=== PATIENT | female | born 1955 | race Caucasian/White ===

== ENCOUNTER 2016-10-09 15:45 | Inpatient (IN) | payer OTHER ==
[~2016-10-09] VITALS: Ht 167.6 cm; Wt 121.6 kg
[~2016-10-09 15:45] MED LIST: ALPRAZOLAM0.25 M1 PO; ALPRAZOLAM0.5 MG PO; AMOXICILLIN500 M3 PO; CELEXA20 MG PO; FUROSEMIDE40 MG PO; GOOD SENSE ASP325 MG PO; LEVEMIR FLEX100 U/M1 SC; LYRICA300 MG PO; NEURONTIN100 MG; NICOTINE TOP; NOVOLOG100 U/ML SC; OXYCONTIN80 MG PO; SPIRIVA 18 MCG18 MCG INH; STOOL SOFTENER100 MG PO; TRADJENTA5 MG PO
--- NOTE | 2016-10-09 16:05 | NUR ---
PT NOT IN WAITING ROOM WHEN CALLED X 2
--- NOTE | 2016-10-09 16:34 | NUR ---
PA STUDENT TO BEDSIDE TO EVAL
--- NOTE | 2016-10-09 16:51 | ED SKIN/ALLERGY COMPLAINT ---
History of Present Illness General Chief Complaint: General Adult Stated Complaint: SENT BY ANTONIO FOR EVAL OF WOUND Source: patient, PCP Exam Limitations: no limitations Vital Signs & Intake/Output Vital Signs & Intake/Output Vital Signs Date Time Temp Pulse Resp B/P B/P Pulse O2 O2 Flow FiO2 Mean Ox Delivery Rate 10/09 1906 96 Nasal 2.0L Cannula 10/09 1905 79 18 112/55 89 Room Air 10/09 1656 99 Room Air 10/09 1611 99.3 99 16 161/73 90 Room Air Allergies Coded Allergies: NO KNOWN ALLERGIES (09/21/15) Reconcile Medications Citalopram Hydrobromide (Citalopram HBr) 20 MG TABLET 1 TAB PO DAILY MENTAL HEALTH (Reported) Furosemide 40 MG TABLET 60 MG PO DAILY DIURETIC (Reported) Insulin Aspart, Recombinant (Novolog Flexpen) 100 UNIT/ML INSULN.PEN DM ( Reported) Insulin Detemir (Levemir Flextouch) 100 UNIT/ML (3 ML) INSULN.PEN 64 UNITS SC BID DM (Reported) Linagliptin (Tradjenta) 5 MG TABLET 1 TAB PO DAILY DM (Reported) Oxycodone HCl (Oxycontin) 80 MG TAB.ER.12H 1 TAB PO TID PRN PAIN (Reported) Pregabalin (Lyrica) 300 MG CAPSULE 1 CAP PO BID NERVE PAIN (Reported) Tiotropium [place] (Spiriva) 18 MCG CAP.W.DEV 1 CAP INH DAILY COPD (Reported) Triage Note: PT STATES SHE HAS A PROSTETIC LEFT LOWER EXT. AND STATES SHE HAS A WOUND ON THE STUMB AND SHE HAS A WOUND THAT WAS PACKED YESTERDAY AND TODAY SHE STARTED WITH A FEVER. Triage Nurses Notes Reviewed? yes HPI: Patient presents for evaluation at the request of her primary care physician of a wound on her left leg. 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 The wound began gradually about 1 month ago. The wound has been constant since onset and has been getting worse/bigger. She completed a course of antibiotics about one half weeks ago. pt states she felt a little feverish today. Patient' s wound becomes painful with weightbearing and use of her prosthetic. She denies cold symptoms, stuffy nose, sore throat, chest pain, shortness of breath, productive cough, vomiting or diarrhea. Past History Travel History Traveled to [place] past 21 day No Medical History Any Pertinent Medical History? see below for history Neurological: NONE EENT: NONE Cardiovascular: NONE Respiratory: asthma, COPD Gastrointestinal: NONE Hepatic: NONE Renal: chronic kidney disease Musculoskeletal: septic arthritis (l ankle), LLE AMPUTATED AMPUTATIONS RT GRT TOE, 3RD TOE Psychiatric: NONE Endocrine: diabetes Blood Disorders: DVT, PE Cancer(s): UTERINE CA Other Medical Hx: Group B strep sepsis History of MRSA: Yes History of VRE: No History of CDIFF: No Pneumonia Vaccine: 08/20/08 Influenza Vaccine: 04/22/15 Surgical History Surgical History: cholecystectomy, hysterectomy, left BKA rt great, 3rd toes amput status post IVC filter status post varicose vein surgery Psychosocial History Who do you live with Daughter Services at Home None What is your primary language Albanian Tobacco Use: Current Daily Use Daily Tobacco Use Amount/Type: => 5 Cigarettes daily ETOH Use: denies use Illicit Drug Use: denies illicit drug use Family History Family History, If Any: MOTHER FH: breast cancer Hx Contributory? No Review of Systems Review of Systems Constitutional: Reports: no symptoms. EENTM: Reports: no symptoms. Respiratory: Reports: no symptoms. Cardiovascular: Reports: no symptoms. GI: Reports: no symptoms. Genitourinary: Reports: no symptoms. Musculoskeletal: Reports: no symptoms. Skin: Reports: see HPI. Neurological/Psychological: Reports: no symptoms. Hematologic/Endocrine: Reports: no symptoms. Immunologic/Allergic: Reports: no symptoms. All Other Systems: Reviewed and Negative Physical Exam Physical Exam General Appearance: see below Comments: Gen.: Well-nourished, well-developed, no acute respiratory distress. Head: Normocephalic, atraumatic. Eyes: Normal inspection bilaterally Ears: Normal inspection bilaterally Nose: Normal inspection Throat/mouth : Moist mucosa Neck: Supple, full range of motion, no goiter Heart: Regular rate and rhythm, no murmurs rubs or gallops Lungs: Clear to auscultation bilaterally with normal air entry Chest: Nontender Back: Normal range of motion Abdomen: Soft, nontender, nondistended, normal bowel sounds Extremities: Quarter-sized sized skin ulcer just distal to the kneecap. Neurologic: Cranial nerves grossly intact, speech is clear Skin: warm and dry Psychiatric: Calm, cooperative, no apparent delusions or hallucinations Progress Differential Diagnosis: cellulitis, deep tissue space infection, pneumonia, urinary infection, viral syndrome Plan of Care: Orders Procedure Date/time Status LACTIC ACID 10/09 2144 Active Misc Message 10/09 1844 Active ED Holding Orders 10/09 1844 Active Admit to inpatient 10/09 1844 Active Vital Signs 10/09 1844 Active LACTIC ACID 10/09 1844 Active Code Status 10/09 1844 Active BLOOD CULTURE 10/09 1706 Active URINALYSIS 10/09 1706 Active COMPREHENSIVE METABOLIC PANEL 10/09 1706 Complete CBC WITHOUT DIFFERENTIAL 10/09 1706 Complete Current Medications Sig/Suleman Start time Last Medication Dose Stop Time Status Admin Vancomycin HCl 1,000 MG ONCE ONE 10/09 1929 UNir Sodium Chloride 250 ML 10/09 2028 (Normal Saline 0.9%) Azithromycin 500 MG ONCE ONE 10/09 1844 AC 10/09 (Zithromax) 10/09 Sodium Chloride 250 ML (Normal Saline 0.9%) Laboratory Tests 10/09/16 1800: Anion Gap 14, Estimated GFR 17 L, BUN/Creatinine Ratio 11.4, Glucose 185 H, Calcium 9.6, Total Bilirubin 0.5, AST 18, ALT 29, Alkaline Phosphatase 95, Total Protein 7.8, Albumin 3.7, Globulin 4.1, Albumin/Globulin Ratio 0.9 L, CBC w Diff NO MAN DIFF REQ, RBC 3.74 L, MCV 93.4, MCH 31.1 H, RDW 14.9 H, MPV 6.6 L, Gran % 90.3 H, Lymphocytes % 4.4 L, Monocytes % 3.3, Eosinophils % 1.2, Basophils % 0.8, Absolute Granulocytes 13.8 H, Absolute Lymphocytes 0.7 L, Absolute Monocytes 0.5, Absolute Eosinophils 0.2, Absolute Basophils 0.1, PUBS MCHC 33.3 Microbiology 10/09 1814 BLOOD: Blood Culture - RECD 10/09 1799 BLOOD: Blood Culture - RECD Diagnostic Imaging: Discussed w/RAD: Radiology Read, CT Scan. Radiology Impression: PATIENT: DENA VICENTE PRESENT AGE: 60 PATIENT ACCOUNT NO: [id number] : 53 LOCATION: [facility] ORDERING PHYSICIAN: ALLAN DE LUNA MD SERVICE DATE: 10/09/16-1706 EXAM TYPE: RAD - XRY-CHEST XRAY, PA AND LATERAL EXAMINATION: XR CHEST CLINICAL INFORMATION: Evaluate for pneumonia fever COMPARISON: 09/19/2015 TECHNIQUE: 2 views of the chest were obtained. FINDINGS: There is generalized opacity in left upper lung. This may represent a small area of developing infiltrate. There is also some minimal change the right lung base. Remainder lung sifuentes are clear. There is vascular prominence here but this may represent baseline for this patient. IMPRESSION: Based on the imaging submitted I must consider developing left upper lung infiltrate and developing right basilar infiltrate. Follow-up films recommended. Vascular prominence may be baseline in this patient. DICTATED BY: ALLAN THOMSON MD DATE/TIME DICTATED:10/09/161732 TREE EXPERT:FARZANA DATE/TIME TRANSCRIBED:10/09/161732 CONFIDENTIAL, DO NOT COPY WITHOUT APPROPRIATE AUTHORIZATION. <Electronically signed in Other Vendor System> SIGNED BY: ALLAN THOMSON MD 10/09/161737, PATIENT: DENA VICENTE PRESENT AGE: 60 PATIENT ACCOUNT NO: [id number] : 53 LOCATION: [facility] ORDERING PHYSICIAN: ALLAN DE LUNA MD SERVICE DATE: 10/09/161728 EXAM TYPE: CAT - CT LOWER EXT WO IV CONTRAST EXAMINATION: CT LOWER EXTREMITY WITHOUT CONTRAST, LEFT CLINICAL INFORMATION: Fever, stump wound. COMPARISON: None TECHNIQUE: Multidetector volumetric imaging of the left lower extremity was performed without IV contrast. Coronal and sagittal reformatted images were obtained at the technologist workstation. DLP: 1201 mGy-cm FINDINGS: Lack of IV contrast limits evaluation for a fluid collection. There is prominent edema at the anterior stump with gas extending through the skin into the area of most prominent edema. This is suggestive of confluent complex fluid. Abscess not excluded at this location. No acute fracture. No erosive osseous changes are seen. Minimal ossification seen at the amputation site adjacent to the distal tibia. Degenerative changes are present at the knee with chondrocalcinosis. Tricompartmental joint space narrowing with osteophyte formation. The bones are osteopenic. There is diffuse atrophy of the musculature of the imaged left lower extremity. Small joint effusion at the knee. IMPRESSION: Lack of IV contrast limits evaluation for a fluid collection. There is prominent edema with area of fluid in the anterior aspect of the stump. Gas extends from the skin into the soft tissues of this area. Although an abscess cannot be confirmed on this imaging, this is suspicious. No acute erosive changes of the osseous structures. Degenerative changes at the knee. DICTATED BY: YOSEHP WRIGHT MD DATE/TIME DICTATED:10/09/161799 TREE EXPERT:FARZANA DATE/TIME TRANSCRIBED:1799 CONFIDENTIAL, DO NOT COPY WITHOUT APPROPRIATE AUTHORIZATION. < Electronically signed in Other Vendor System> SIGNED BY: DARIANA RODAS, YOSEPH 10/09/16 0120 Comments: 10/09/2016 7:19:54 PM I have updated Dena on test results and plan. Discussed her case with Dr. Hays. She is being evaluated by house staff. She remains clinically stable and appears comfortable at this time. Departure Departure Disposition: STILL A PATIENT Condition: Stable Clinical Impression Primary Impression: Pneumonia Qualifiers: Pneumonia type: due to unspecified organism Laterality: bilateral Lung location: unspecified part of lung Qualified Code: J18.9 - Pneumonia, unspecified organism Secondary Impressions: Cellulitis Qualifiers: Site of cellulitis: extremity Site of cellulitis of extremity: lower extremity Laterality: left Qualified Code: L03.116 - Cellulitis of left lower limb Referrals: GARRET HAYS MD (PCP/Family) Departure Forms: Customer Survey General Discharge Information Admission Note Spoke With: GARRET HAYS MD Documentation of Exam: Documentation of any treatments & extenuating circumstances including Concerns Regarding Discharge (functional status, medication knowledge or non-compliance, living conditions, etc.) that warrant an admission rather than observation: Patient has multilobar pneumonia and quite possibly a left lower extremity cellulitis. She has a history of diabetes and renal insufficiency, compromising her immune system. This places her at great risk of overwhelming infection, sepsis and . Given this I do not feel she is a good candidate for outpatient management and instead requires an aggressive treatment with IV antibiotics and close clinical monitoring. Her diabetes should be well controlled and renal functions should be followed. Blood cultures should also be followed and treated accordingly. Infectious disease consultation and or pulmonary consultation should be considered. I feel this patient will require a multiple day hospitalization. Critical Care Note Critical Care Note Critical Care Time: 30-74 min
--- NOTE | 2016-10-09 16:55 | NUR ---
DR DE LUNA TO BEDSIDE WELL TO EVAL WOUND
--- NOTE | 2016-10-09 17:38 | RADIOLOGY REPORT ---
EXAMINATION: XR CHEST CLINICAL INFORMATION: Evaluate for pneumonia fever COMPARISON: 09/19/2015 TECHNIQUE: 2 views of the chest were obtained. FINDINGS: There is generalized opacity in left upper lung. This may represent a small area of developing infiltrate. There is also some minimal change the right lung base. Remainder lung sifuentes are clear. There is vascular prominence here but this may represent baseline for this patient. IMPRESSION: Based on the imaging submitted I must consider developing left upper lung infiltrate and developing right basilar infiltrate. Follow-up films recommended. Vascular prominence may be baseline in this patient.
[2016-10-09] MEDS ORDERED: CITALOPRAM HBR20 MG PO (18:07)
[2016-10-09] MEDS ORDERED: LEVEMIR FL100 UNIT/1 SC (18:08)
[2016-10-09] MEDS ORDERED: NOVOLOG FL100 UNIT/1 SC (18:08)
--- NOTE | 2016-10-09 18:08 | CT SCAN REPORT ---
EXAMINATION: CT LOWER EXTREMITY WITHOUT CONTRAST, LEFT CLINICAL INFORMATION: Fever, stump wound. COMPARISON: None TECHNIQUE: Multidetector volumetric imaging of the left lower extremity was performed without IV contrast. Coronal and sagittal reformatted images were obtained at the technologist workstation. DLP: 1201 mGy-cm FINDINGS: Lack of IV contrast limits evaluation for a fluid collection. There is prominent edema at the anterior stump with gas extending through the skin into the area of most prominent edema. This is suggestive of confluent complex fluid. Abscess not excluded at this location. No acute fracture. No erosive osseous changes are seen. Minimal ossification seen at the amputation site adjacent to the distal tibia. Degenerative changes are present at the knee with chondrocalcinosis. Tricompartmental joint space narrowing with osteophyte formation. The bones are osteopenic. There is diffuse atrophy of the musculature of the imaged left lower extremity. Small joint effusion at the knee. IMPRESSION: Lack of IV contrast limits evaluation for a fluid collection. There is prominent edema with area of fluid in the anterior aspect of the stump. Gas extends from the skin into the soft tissues of this area. Although an abscess cannot be confirmed on this imaging, this is suspicious. No acute erosive changes of the osseous structures. Degenerative changes at the knee.
[2016-10-09] MEDS ORDERED: LYRICA300 M1 PO (18:09)
[2016-10-09] MEDS ORDERED: SPIRIVA18 MCG INH (18:09)
[2016-10-09] MEDS ORDERED: FUROSEMIDE40 M1 PO (18:09)
[2016-10-09] MEDS ORDERED: TRADJENTA5 M1 PO (18:09)
[2016-10-09] MEDS ORDERED: OXYCONTIN80 M1 PO (18:10)
[2016-10-09 18:12] LABS: ABSOLUTE BASOPHIL COUNT 0.1 /CUMM (0.0-0.2); ABSOLUTE EOSINOPHIL COUNT 0.2 /CUMM (0.0-0.7); ABSOLUTE GRANULOCYTE CT 13.8 /CUMM (1.4-6.5); ABSOLUTE LYMPH COUNT 0.7 /CUMM (1.2-3.4); ABSOLUTE MONOCYTE COUNT 0.5 /CUMM (0.10-0.60); BASOPHIL % 0.8 % (0.0-2.0); EOSINOPHIL % 1.2 % (0-5); HEMATOCRIT 34.9 % (37-47); MEAN CORPUSCULAR HGB 31.1 PG (27.0-31.0); MEAN CORPUSCULAR HGB CONC 33.3 G/DL (33.0-37.0); MEAN CORPUSCULAR VOLUME 93.4 FL (81.0-99.0); MEAN PLATELET VOLUME 6.6 FL (7.4-10.4); PLATELET COUNT 311 /CUMM (130-400); RBC DISTRIBUTION WIDTH 14.9 % (11.5-14.5); RED BLOOD CELL CT 3.74 /CUMM (4.20-5.40); WHITE BLOOD CELL COUNT 15.3 /CUMM (4.8-10.8)
[2016-10-09 18:13] LABS: GRANULOCYTE % 90.3 % (42.2-75.2)
--- NOTE | 2016-10-09 18:22 | NUR ---
PT TO AND FROM CT SCAN, IV ESTABLISHED.
--- NOTE | 2016-10-09 19:05 | NUR ---
PT STATING SHE DOES NOT WANT TO CHANGE INTO GOWN, ABX STARTED PER EMAR, PT RESTING QUIETLY WITH SON AT BEDSIDE, REQUESTING SOMETHING TO EAT, WILL NOTIFY .
--- NOTE | 2016-10-09 19:16 | NUR ---
HOUSE STAFF AT BEDSIDE FOR EVALAUTION
--- NOTE | 2016-10-09 19:43 | NUR ---
PT CHANGED INTO GOWN FOR US
--- NOTE | 2016-10-09 19:45 | History & Physical ---
See Addendum General Information and HPI MD Statement: I have seen and personally examined MEKHI VICENTE and documented this H&P. The patient is a 60 year old F who presented with a patient stated chief complaint of [wound infection]. Source of Information: patient, family, old records Exam Limitations: no limitations History of Present Illness: This is a 60-year-old lady whose medical issues include diabetes, hypertension, hyperlipidemia, COPD, current everyday smoker, left lower extremity BKA status post osteomyelitis (per patient) presents to the emergency room today per request of the primary care physician for evaluation of wound of the left leg stump. Patient states that she has had this ulcer for the past 6 weeks now, subsequently there has been some drainage coming out of it. She had a visiting wound care nurse come home yesterday who also recommended that she come to the emergency room for evaluation. On admission today her only complaint are some tactile fevers and chills. Denies any dyspnea, orthopnea, productive cough. She was admitted here last year in August with blood cultures growing strep pneumo, in 2007 she has grown MRSA in bone/ wound cultures. While in the emergency room a left lower extremity CAT scan was obtained which showed gas extending from the skin into the soft tissues. A chest x-ray also was suggestive of left upper lung infiltrate and developing right basilar infiltrate , however she has no complaints of cough or dyspnea as noted above. Allergies/Medications Allergies: Coded Allergies: NO KNOWN ALLERGIES (09/21/15) Home Med list Citalopram Hydrobromide (Citalopram HBr) 20 MG TABLET 1 TAB PO DAILY MENTAL HEALTH (Reported) Furosemide 40 MG TABLET 60 MG PO DAILY DIURETIC (Reported) Insulin Aspart, Recombinant (Novolog Flexpen) 100 UNIT/ML INSULN.PEN DM ( Reported) Insulin Detemir (Levemir Flextouch) 100 UNIT/ML (3 ML) INSULN.PEN 64 UNITS SC BID DM (Reported) Linagliptin (Tradjenta) 5 MG TABLET 1 TAB PO DAILY DM (Reported) Oxycodone HCl (Oxycontin) 80 MG TAB.ER.12H 1 TAB PO TID PRN PAIN (Reported) Pregabalin (Lyrica) 300 MG CAPSULE 1 CAP PO BID NERVE PAIN (Reported) Tiotropium [place] (Spiriva) 18 MCG CAP.W.DEV 1 CAP INH DAILY COPD (Reported) Past History Travel History Traveled to [place] past 21 day No Medical History Neurological: NONE EENT: NONE Cardiovascular: NONE Respiratory: COPD Gastrointestinal: NONE Hepatic: NONE Renal: chronic kidney disease Musculoskeletal: LLE AMPUTATED AMPUTATIONS RT GRT TOE, 3RD TOE Psychiatric: NONE Endocrine: diabetes History of MRSA: Yes History of VRE: No History of CDIFF: No Pneumonia Vaccine: 08/20/08 Influenza Vaccine: 04/22/15 Surgical History Surgical History: cholecystectomy, hysterectomy, left BKA rt great, 3rd toes amput status post IVC filter status post varicose vein surgery Past Family/Social History Family History Relations & Conditions if any MOTHER FH: breast cancer Psychosocial History Who Do You Live With? child Services at Home: None ETOH Use: denies use Illicit Drug Use: denies illicit drug use Functional Ability ADLs Independent: dressing, eating, toileting, bathing. Ambulation: cane IADLs Needs Assist: shopping, housework. Review of Systems Review of Systems Constitutional: Reports: see HPI. Exam & Diagnostic Data Last 24 Hrs of Vital Signs/I&O Vital Signs Date Time Temp Pulse Resp B/P B/P Pulse O2 O2 Flow FiO2 Mean Ox Delivery Rate 10/09 1906 96 Nasal 2.0L Cannula 10/09 190 79 18 112/55 89 Room Air 10/09 1656 99 Room Air 10/09 1611 99.3 99 16 161/73 90 Room Air Physical Exam General Appearance Alert, Oriented X3, Cooperative, No Acute Distress Skin No Rashes HEENT Atraumatic, PERRLA, EOMI Cardiovascular Regular Rate, Normal S1, Normal S2 Lungs Normal Air Movement, b/l expiratory faint wheezing, no rales or ronchii Abdomen Normal Bowel Sounds, Soft, No Tenderness Neurological Normal Speech, Strength at 5/5 X4 Ext, Normal Tone, Sensation Intact, Cranial Nerves 3-12 NL Extremities RLE chronic swelling, dry skin, amputated 1st and 3rd digits; LLE BKA, ulcer 2 cm by 2 cm, with central drainage with surrounding errythema Diagnostic Data CXR Results PATIENT: MEKHI VICENTE PRESENT AGE: 60 PATIENT ACCOUNT NO: [id number] : 53 LOCATION: [facility] ORDERING PHYSICIAN: ALLAN DE LUNA MD SERVICE DATE: 10/09/16 EXAM TYPE: RAD - XRY-CHEST XRAY, PA AND LATERAL EXAMINATION: XR CHEST CLINICAL INFORMATION: Evaluate for pneumonia fever COMPARISON: 09/19/2015 TECHNIQUE: 2 views of the chest were obtained. FINDINGS: There is generalized opacity in left upper lung. This may represent a small area of developing infiltrate. There is also some minimal change the right lung base. Remainder lung sifuentes are clear. There is vascular prominence here but this may represent baseline for this patient. IMPRESSION: Based on the imaging submitted I must consider developing left upper lung infiltrate and developing right basilar infiltrate. Follow-up films recommended. Vascular prominence may be baseline in this patient. DICTATED BY: ALLAN THOMSON MD DATE/TIME DICTATED:10/09/161732 BRAIN WAVE TECHNICIAN:FARZANA DATE/TIME TRANSCRIBED:10/09/161732 CONFIDENTIAL, DO NOT COPY WITHOUT APPROPRIATE AUTHORIZATION. <Electronically signed in Other Vendor System> SIGNED BY: ALLAN THOMSON MD 10/09/161737 Other Results PATIENT: MEKHI VICENTE PRESENT AGE: 60 PATIENT ACCOUNT NO: [id number] : 53 LOCATION: [facility] ORDERING PHYSICIAN: ALLAN DE LUNA MD SERVICE DATE: 10/09/16 EXAM TYPE: CAT - CT LOWER EXT WO IV CONTRAST EXAMINATION: CT LOWER EXTREMITY WITHOUT CONTRAST, LEFT CLINICAL INFORMATION: Fever, stump wound. COMPARISON: None TECHNIQUE: Multidetector volumetric imaging of the left lower extremity was performed without IV contrast. Coronal and sagittal reformatted images were obtained at the technologist workstation. DLP: 1201 mGy-cm FINDINGS: Lack of IV contrast limits evaluation for a fluid collection. There is prominent edema at the anterior stump with gas extending through the skin into the area of most prominent edema. This is suggestive of confluent complex fluid. Abscess not excluded at this location. No acute fracture. No erosive osseous changes are seen. Minimal ossification seen at the amputation site adjacent to the distal tibia. Degenerative changes are present at the knee with chondrocalcinosis. Tricompartmental joint space narrowing with osteophyte formation. The bones are osteopenic. There is diffuse atrophy of the musculature of the imaged left lower extremity. Small joint effusion at the knee. IMPRESSION: Lack of IV contrast limits evaluation for a fluid collection. There is prominent edema with area of fluid in the anterior aspect of the stump. Gas extends from the skin into the soft tissues of this area. Although an abscess cannot be confirmed on this imaging, this is suspicious. No acute erosive changes of the osseous structures. Degenerative changes at the knee. DICTATED BY: YOSEPH WRIGHT MD DATE/TIME DICTATED:10/09/161799 BRAIN WAVE TECHNICIAN:FARZANA DATE/TIME TRANSCRIBED:10/09/161799 CONFIDENTIAL, DO NOT COPY WITHOUT APPROPRIATE AUTHORIZATION. <Electronically signed in Other Vendor System> SIGNED BY: YOSEPH WRIGHT MD 10/09 989 Assessment/Plan Assessment: ASSESSMENT- 1. Left lower extremity wound likely concerns for necrotizing fascitis; possibly underlying osteomyelitis 2. LLE cellulitis ? 3. CXR suggestive of PNA, likely CAP 4. COPD 5. Neuropathy 6. Depression 7. Charcots foot 8. IDDM 9. Hx of BKA 10. CKD stage 3 11. Nicotine dependance 12. Peripheral vascular disease PLAN- GEN med admission [place] culture- blood cultures x 2, sputum culture, strep and legionella antigen, urinalysis Vitals per protocol Start on vancomycin and clindamycin (cover MRSA and anaerobes) She already has received one doses of ceftriaxone and azithromycin in the emergency room for suspected pneumonia; given her lack of symptoms will hold off treatment for those for now STAT surgical consult has been placed Keep patient nothing by mouth for now Will obtain infectious disease and endocrine consult in the morning Accu-Cheks, insulin sliding scale and long-term insulin coverage Continue all other by mouth meds 14 g nicotine patch Pain pathway Doppler ultrasound is pending Check ESR, INR, B12, folic acid, vitamin D Subcutaneous heparin for DVT prophylaxis Full code UPDATE 8:15 PM- I got a call from the surgical PADavid, who stated that Dr. Moya did see the patient. He thinks that this is not likely suggestive of necrotizing fasciitis as this wound has been there for some time. They recommend broad-spectrum antibiotics at present. No plans for surgery. Will feed the patient. Per surgical PA, Dr. Moya did send out a wound culture. As Ranked By This Provider Problem List: 1. Cellulitis Qualifiers Site of cellulitis: extremity Site of cellulitis of extremity: lower extremity Laterality: left Qualified Code: L03.116 - Cellulitis of left lower limb 2. Pneumonia Qualifiers Pneumonia type: due to unspecified organism Laterality: bilateral Lung location : unspecified part of lung Qualified Code: J18.9 - Pneumonia, unspecified organism Core Measures/Miscellaneous Acute Coronary Syndrome ACS Diagnosis: No Cerebrovascular Accident CVA/TIA Diagnosis: No Congestive Heart Failure CHF Diagnosis: No Venous Thromboembolism VTE Risk Factors: Age > 40 No Mech VTE prophylaxis d/t: No contraindications No VTE Pharm Prophylaxis d/t: No contraindications VTE Diagnosis: No VTE Type: NONE VTE Confirmed by (Test): NONE Severe Sepsis Severe Sepsis Present: No Septic Shock Septic Shock Present: No Miscellaneous Documentation Attending Case Discussed With: DR. ALVAREZ Primary Care Physician: GARRET ALVAREZ MD Patient sees these Specialists DR. RAMON Level of Patient Care: General Medicine Resident Review Statement Resident Statement: examined this patient, discussed with internet marketing analyst
--- NOTE | 2016-10-09 19:46 | Admission Certification ---
Admission Certification Certification Statement - As attending physician, I certify that at the time of - admission, based on clinical presentation, severity of - symptoms, need for further diagnostic testing and - therapeutic interventions, and risk of adverse outcomes - without in-hospital treatment, in my clinical assessment, - this patient requires an acute hospital stay for a minimum - of two nights or longer. I have also considered psychsocial - factors such as support system, advanced age, financial - issues, cognitive issues, and failed out-patient treatments, - past re-admission history, safety of patient, and lack of - compliance as applicable. Specific rationale supporting this admission is: Fever infected stump leukocytosis possible pneumonia in a diabetic patient.
--- NOTE | 2016-10-09 19:59 | PN- Att Addend ---
Attending Addendum Attending Brief Note 60 year old female diabetic PVD S/p leg amputation has had a wound on the stump red some pus today fever advised ti come to ER where she had x rays and blood work and cultures white count elevated,WBC 85445 90.3% gran. CXR: developing BALA infiltrate and RT. basilar infiltrate. CT of left lower extremity showed prominent edema with area of fluid in the anterior aspect of the stump.gas extends from the skin into the soft tisuues of this area,abscess is suspisious. No acute erosive changes of the osseous structures. Laboratory Tests 10/09 1800 Chemistry Sodium (137 - 145 mmol/L) 139 Potassium (3.5 - 5.1 mmol/L) 4.0 Chloride (98 - 107 mmol/L) 100 Carbon Dioxide (22 - 30 mmol/L) 25 Anion Gap (5 - 16) 14 BUN (7 - 17 mg/dL) 32 H Creatinine (0.5 - 1.0 mg/dL) 2.8 H Estimated GFR (>60 ml/min) 17 L BUN/Creatinine Ratio (7 - 25 %) 11.4 Glucose (65 - 99 mg/dL) 185 H Calcium (8.4 - 10.2 mg/dL) 9.6 Total Bilirubin (0.2 - 1.3 mg/dL) 0.5 AST (14 - 36 U/L) 18 ALT (9 - 52 U/L) 29 Alkaline Phosphatase (<127 U/L) 95 Total Protein (6.3 - 8.2 g/dL) 7.8 Albumin (3.5 - 5.0 g/dL) 3.7 Globulin (1.9 - 4.2 gm/dL) 4.1 Albumin/Globulin Ratio (1.1 - 2.2 %) 0.9 L Hematology CBC w Diff NO MAN DIFF REQ WBC (4.8 - 10.8 /CUMM) 15.3 H RBC (4.20 - 5.40 /CUMM) 3.74 L Hgb (12.0 - 16.0 G/DL) 11.6 L Hct (37 - 47 %) 34.9 L MCV (81.0 - 99.0 FL) 93.4 MCH (27.0 - 31.0 PG) 31.1 H RDW (11.5 - 14.5 %) 14.9 H Plt Count (130 - 400 /CUMM) 311 MPV (7.4 - 10.4 FL) 6.6 L Gran % (42.2 - 75.2 %) 90.3 H Lymphocytes % (20.5 - 51.1 %) 4.4 L Monocytes % (1.7 - 9.3 %) 3.3 Eosinophils % (0 - 5 %) 1.2 Basophils % (0.0 - 2.0 %) 0.8 Absolute Granulocytes (1.4 - 6.5 /CUMM) 13.8 H Absolute Lymphocytes (1.2 - 3.4 /CUMM) 0.7 L Absolute Monocytes (0.10 - 0.60 /CUMM) 0.5 Absolute Eosinophils (0.0 - 0.7 /CUMM) 0.2 Absolute Basophils (0.0 - 0.2 /CUMM) 0.1 PUBS MCHC (33.0 - 37.0 G/DL) 33.3 Case discussed with resident all cultures obtained, ID and endocrine imputs, IV antibiotics.
--- NOTE | 2016-10-09 20:11 | NUR ---
CULTURE SENT TO LAB
--- NOTE | 2016-10-09 20:12 | NUR ---
PT TO US VIA STRETCHER
--- NOTE | 2016-10-09 20:56 | NUR ---
NICOTIN PATCH PLACED ON PT VIV PER PT REQUEST AND DOSE IS PER EMAR
--- NOTE | 2016-10-09 21:32 | ULTRASOUND REPORT ---
EXAMINATION: US TRIPLEX LOWER EXTREMITY, BILATERAL CLINICAL INFORMATION: Lower extremity pain. Infection. Ulceration on the left. Swelling. Leg tenderness. Patient has a below the knee amputation on the left. COMPARISON: Triplex scans (of the right lower extremity) done in the past, all negative for DVT. May 2010, September 2010, February 2011, and August 2015. TECHNIQUE: Color-flow triplex imaging with spectral analysis and compression Doppler were performed on the bilateral lower extremities. The patient was unable to completely assume the supine position. FINDINGS: Respiratory variation, normal compression and augmented flow are noted throughout the right lower extremity. The visualized common femoral vein, superficial femoral vein, profunda femoral vein, popliteal vein and midcalf peroneal and posterior tibial venous segments show no evidence of deep venous thrombosis. Respiratory variation, normal compression, and augmented flow are noted in the left common femoral vein, the proximal superficial femoral vein, profunda femoral vein, and to lesser extent the popliteal vein. However, flow is very difficult to detect in the mid and distal portions of the left superficial femoral vein. Prominent lymph nodes are seen in the left groin. There is no Magallanes's cyst. IMPRESSION: 1. No evidence of DVT in the right lower extremity. 2. Poor compression and flow in the left mid and distal superficial femoral vein. The chronicity of this finding cannot be determined. This critical result was discussed with Dr. Lin at 9:28 PM on October 09 and it was ascertained that the content and urgency of the report was understood at the time of direct communication.
--- NOTE | 2016-10-09 21:49 | NUR ---
PT MEDICATED PER EMAR WITH CLEOCIN
--- NOTE | 2016-10-09 22:13 | NUR ---
PT'S RM ASSIGNMENT 225 BED 1
--- NOTE | 2016-10-09 22:25 | NUR ---
REPORT GIVEN TO STEFANO SMITH
[2016-10-09 23:37] VITALS: BP 170/84
--- NOTE | 2016-10-10 00:39 | NUR ---
PATIENT ARRIVED ON UNIT AT 2245 VIA STRETCHER. PATIENT AMBULATED TO BR WITH CANE AND PROSTHETIC WITHOUT ANY DIFFICULTY. PT A+Ox3 AND ON RA. 02 SAT 90-92% ON RA. PT DOES NOT WANT 02 AT THIS TIME. LUNGS DIMINISHED. VSS. ADMISSION ASSESSMENT COMPLETE. WOUND TO L KNEE ASSESSED AND DOCUMENTED; DRESSING CHANGED WELL. SCHEDULED MEDICATIONS GIVEN AT THIS TIME. NO FURTHER COMPLAINTS. WILL CONTINUE TO CLOSELY MONITOR.
[2016-10-10 06:29] VITALS: BP 140/70
--- NOTE | 2016-10-10 07:12 | PN- Housestaff ---
Subjective Follow-up For: Cellulitis Questionable osteomyelitis Subjective: Seen and examined patient. Complains that the ulcer on her left leg stump been having some purulent discharge, denies fevers, shortness of breath. Review of Systems Constitutional: Denies: chills, diaphoresis, fever, malaise, weakness, unexplained weight loss. Cardiovascular: Denies: chest pain, edema, orthopena, palpitations, peripheral edema, syncope. Respiratory: Denies: cough, hemoptysis, orthopnea, short of breath, sputum production, stridor, wheezing. Gastrointestinal: Denies: abdominal pain, bloating, constipation, diarrhea, distention, bowel incontinence, melena, nausea, bloody stool, changes in stool, vomiting, steatorrhea. Objective Last 24 Hrs of Vital Signs/I&O Vital Signs Date Time Temp Pulse Resp B/P B/P Pulse O2 O2 Flow FiO2 Mean Ox Delivery Rate 10/10 1333 98.4 68 20 144/86 93 10/10 0629 98.9 79 18 140/70 93 Room Air 10/10 0025 90 Room Air 10/09 2337 98.4 90 18 170/84 90 Room Air 10/09 2220 99.0 88 16 148/79 92 10/09 1907 96 Nasal 2.0L Cannula 10/09 1906 79 18 112/55 89 Room Air 10/09 1656 99 Room Air 10/09 1611 99.3 99 16 161/73 90 Room Air Intake & Output 10/10 1600 10/10 0800 10/10 0000 Intake Total 660 0 Output Total Balance 660 0 Intake, Oral 660 0 Patient 268 lb 268 lb Weight Weight Reported by Patient Reported by Patient Measurement Method Physical Exam General Appearance: Alert, Oriented X3, Cooperative, No Acute Distress Cardiovascular: Regular Rate, Normal S1, Normal S2 Lungs: Clear to Auscultation, Normal Air Movement Abdomen: Soft, distended, morbidly obese Extremities: left AKA, 7 x 7 cm also present on stump, clean margins with some purulent discharge noted Current Medications: Current Medications Sig/Suleman Start time Last Medication Dose Route Stop Time Status Admin Acetaminophen 650 MG Q6P PRN 10/09 2029 AC PO Acetaminophen/ 1 TAB Q6P PRN 10/09 2029 AC Hydrocodone Bitart PO Azithromycin 500 MG ONCE ONE 10/09 1844 DC 10/09 Sodium Chloride 250 ML IV 04/20 1944 1905 Ceftriaxone Sodium 0 .STK-MED ONE 10/09 1859 DC .ROUTE Ceftriaxone Sodium 1,000 MG ONCE ONE 10/09 1845 DC 10/09 IV 10/09 1846 1905 Citalopram 20 MG DAILY 10/10 1000 AC 10/10 Hydrobromide PO 1005 Clindamycin 600 MG Q8 10/10 0600 DC 10/10 Dextrose/Water 50 ML IV 1314 Clindamycin 600 MG ONCE ONE 10/09 1930 DC 10/09 Dextrose/Water 50 ML IV 10/09 1959 2149 Dextrose/Sodium 1,000 ML Q8H 10/10 1045 CAN Chloride IV Docusate Sodium 100 MG BID 10/10 1341 AC 10/10 PO 1449 Ergocalciferol 50,000 IU Q168 10/16 1000 AC PO Furosemide 60 MG DAILY 10/10 1000 DC 10/10 PO 1005 Guaifenesin/ 10 ML ONCE ONE 10/10 1600 AC Dextromethorphan PO 10/10 1601 Heparin Sodium 5,000 UNIT Q8 10/09 2200 AC 10/10 (Porcine) SC 1314 Hydromorphone HCl 0.5 MG Q6-PRN PRN 10/09 2030 AC IV Influenza Virus 0.5 ML 1000 10/10 1000 DC 10/10 Vaccine IM 10/10 1001 1006 Insulin Aspart 0 TIDAC/HS 10/10 1200 AC 10/10 SC 1218 Insulin Aspart 0 TIDAC 10/10 0800 DC 10/10 SC 0823 Insulin Detemir 45 UNITS BID 10/10 2200 AC SC Insulin Detemir 60 UNITS BID 10/09 2200 DC 10/10 SC 1005 Nicotine 0 .STK-MED ONE 10/09 205 DC TOP Nicotine 14 MG DAILY 10/09 2028 AC 10/10 TOP 1006 Oxycodone HCl 80 MG Q8 10/09 2200 AC 10/10 PO 1314 Patient Medication 1 ED .STK-MED ONE 10/10 1354 DC Teaching ED 10/10 1355 Pregabalin 300 MG BID 10/09 2200 AC 10/10 PO 1005 Sodium Chloride 1,000 ML Q10H 10/10 1330 DC IV 10/10 2329 Sodium Chloride 1,000 ML Q10H 10/10 1045 AC 10/10 IV 1210 Tiotropium Alpha 1 PUF DAILY 10/10 1000 AC 10/10 INH 1003 Vancomycin HCl 1,500 MG 10/10 AC Sodium Chloride 500 ML IV Vancomycin HCl 0 .STK-MED ONE 10/09 2050 DC .ROUTE Vancomycin HCl 1,000 MG ONCE ONE 10/09 1929 DC 10/09 Sodium Chloride 250 ML IV 10/09 Last 24 Hrs of Lab/Drew Results Last 24 Hrs of Labs/Mics: Laboratory Tests 10/10/16 0740: Urinalysis LIGHT H, Urine Color YEL, Urine Clarity HAZY H, Urine pH 6.0, Ur Specific [place] 1.020, Urine Protein >=300 H, Urine Ketones NEG, Urine Nitrite NEG, Urine Bilirubin NEG, Urine Urobilinogen 0.2, Ur Leukocyte Esterase NEG, Ur Microscopic SEDIMENT EXAMINED, Urine RBC 1-3, Urine WBC 1-3 H, Ur Epithelial Cells FEW, Urine Bacteria MOD H, Granular Casts FEW H, Urine Hemoglobin SMALL H, Urine Glucose 250 H 10/10/16 0622: Anion Gap 11, Estimated GFR 13 L, BUN/Creatinine Ratio 10.0, PT 12.8 H, INR 1.22 H, CBC w Diff NO MAN DIFF REQ, RBC 3.24 L, MCV 94.6, MCH 31.9 H, RDW 14.9 H, MPV 7.1 L, Gran % 83.8 H, Lymphocytes % 9.0 L, Monocytes % 5.6, Eosinophils % 1.1, Basophils % 0.5, Absolute Granulocytes 10.9 H, Absolute Lymphocytes 1.2, Absolute Monocytes 0.7 H, Absolute Eosinophils 0.1, Absolute Basophils 0.1, PUBS MCHC 33.7, Random Vancomycin 13.9 10/10/16 0045: Lactic Acid 1.8 10/09/16 2006: PT Cancelled, INR Cancelled 10/09/16 1845: Lactic Acid Cancelled 10/09/16 1800: Anion Gap 14, Estimated GFR 17 L, BUN/Creatinine Ratio 11.4, Glucose 185 H, Hemoglobin A1c 7.4 H, Calcium 9.6, Total Bilirubin 0.5, AST 18, ALT 29, Alkaline Phosphatase 95, Total Protein 7.8, Albumin 3.7, Globulin 4.1, Albumin/ Globulin Ratio 0.9 L, Vitamin B12 267, 25-OH Vitamin D Total 5.8 L, Folate 9.4 , TSH 1.810, Free T4 1.05, CBC w Diff NO MAN DIFF REQ, RBC 3.74 L, MCV 93.4, MCH 31.1 H, RDW 14.9 H, MPV 6.6 L, Gran % 90.3 H, Lymphocytes % 4.4 L, Monocytes % 3.3, Eosinophils % 1.2, Basophils % 0.8, Absolute Granulocytes 13.8 H, Absolute Lymphocytes 0.7 L, Absolute Monocytes 0.5, Absolute Eosinophils 0.2 , Absolute Basophils 0.1, PUBS MCHC 33.3, ESR Westergren 97 H Microbiology 10/10 1444 BODY FLUID: Body Fluid Culture - COLB 10/10 1444 BODY FLUID: Gram Stain - COLB 10/10 0900 LOWER RESP: Respiratory Culture - CAN Cancelled: NUMBER OF SQUAMOUS CELLS INDICATES POOR QUALITY SPECIMEN 10/10 0900 LOWER RESP: Gram Stain - CAN Cancelled: NUMBER OF SQUAMOUS CELLS INDICATES POOR QUALITY SPECIMEN 10/10 0740 URINE ROUT: Legionella Antigen - COMP 10/11 739 URINE ROUT: Streptococcus pneumoniae Antigen (M - COMP 10/09 2009 EXTREMITIE: Culture & Sensitivity - RES STAPH AUREUS 10/09 2009 EXTREMITIE: Gram Stain - RES 10/09 1815 BLOOD: Blood Culture - RES 10/09 1800 BLOOD: Blood Culture - RES Assessment/Plan Assessment: 60-year-old woman with a history of diabetes, left leg DVT status post IVC filter, chronic kidney disease, neuropathy and peripheral vascular disease, status post left BKA and amputations of the right first and third toes, current admission for fevers chills and purulent discharge from the ulcer on her left knee stump. Found to have elevated white count and ESR, CT left leg, edema with area of fluid in the anterior aspect of the stump, suspicious for an abscess, with gas extending from the skin into the soft tissues, with no evidence of osteomyelitis. Bilateral lower extremity Dopplers were negative for right leg DVT, with poor compression and flow in the left mid and distal superficial femoral veins. Assessment and plan Cellulitis/questionable osteomyelitis: Patient to go down for ultrasound-guided aspiration if possible as there is suspicion of collection of fluid. Will follow-up fluid for culture. superficial culture culture positive for staph aureus Will follow-up MRI ID consulted appreciate recommendations Random Vanco level to be followed up this evening if less than 15 Vancomycin 1.5 g IV 1 to be given will repeat another random Vanco level and with a.m. labs tommorrow and if less than 15 will give another one time dose of 1.5g IV. will discontinue clindamycin as it has shown to have increased resistance to MRSA. pain control with her home dose of oxycontin and dilaudid for breakthrough pain. Diabetes: monitor fingersticks, Endo on board, apprec recs On levemir 45 units, sliding scale per endo recomendation ameya on CKD secondary to ATN (vancomycin induced) vs lasix will hold lasix for now. will continue to monitor Mood disorder continue celexa, diabetic diet dvt prophylaxis with sc heparin full code Problem List: 1. Diabetes mellitus type 2 2. Cellulitis of right lower leg 3. AMEYA (acute kidney injury) Pain Ratin Pain Location: left knee stump Pain Goal: Pain 4 or less Pain Plan: current regimen Tomorrow's Labs & Rationales: cbc/bep/vanco level
[2016-10-10 08:07] LABS: ABSOLUTE BASOPHIL COUNT 0.1 /CUMM (0.0-0.2); ABSOLUTE EOSINOPHIL COUNT 0.1 /CUMM (0.0-0.7); ABSOLUTE GRANULOCYTE CT 10.9 /CUMM (1.4-6.5); ABSOLUTE LYMPH COUNT 1.2 /CUMM (1.2-3.4); ABSOLUTE MONOCYTE COUNT 0.7 /CUMM (0.10-0.60); BASOPHIL % 0.5 % (0.0-2.0); EOSINOPHIL % 1.1 % (0-5); GRANULOCYTE % 83.8 % (42.2-75.2); HEMATOCRIT 30.7 % (37-47); MEAN CORPUSCULAR HGB 31.9 PG (27.0-31.0); MEAN CORPUSCULAR HGB CONC 33.7 G/DL (33.0-37.0); MEAN CORPUSCULAR VOLUME 94.6 FL (81.0-99.0); MEAN PLATELET VOLUME 7.1 FL (7.4-10.4); RBC DISTRIBUTION WIDTH 14.9 % (11.5-14.5); RED BLOOD CELL CT 3.24 /CUMM (4.20-5.40)
[2016-10-10 08:22] LABS: PT 12.8 SEC (9.4-12.5)
[2016-10-10 08:50] LABS: PLATELET COUNT 262 /CUMM (130-400)
--- NOTE | 2016-10-10 11:08 | Cons- Endocrinology ---
General Information and HPI Consulting Request Date of Consult: 10/10/16 Requested By: medical team Reason for Consult: management of DM type 2 Source of Information: patient Exam Limitations: no limitations History of Present Illness: 60-year-old female who has diabetes type 2, hypertension, hyperlipidemia, COPD, current everyday smoker, osteomyelitis, status post left lower extremity BKA, presents to the emergency room for evaluation of wound of the left leg stump. I was asked to see her for management of DM. She was on Levemir 64 units twice a day and Novolog coverage before meals at home. In hospital, she was put on Levemir 60 units twice a day, Novolog coverage before meals. Her FSGs were 195 and 188. Allergies/Medications Allergies: Coded Allergies: NO KNOWN ALLERGIES (09/21/15) Home Med List: Citalopram Hydrobromide (Citalopram HBr) 20 MG TABLET 1 TAB PO DAILY MENTAL HEALTH (Reported) Furosemide 40 MG TABLET 60 MG PO DAILY DIURETIC (Reported) Insulin Aspart, Recombinant (Novolog Flexpen) 100 UNIT/ML INSULN.PEN DM ( Reported) Insulin Detemir (Levemir Flextouch) 100 UNIT/ML (3 ML) INSULN.PEN 64 UNITS SC BID DM (Reported) Linagliptin (Tradjenta) 5 MG TABLET 1 TAB PO DAILY DM (Reported) Oxycodone HCl (Oxycontin) 80 MG TAB.ER.12H 1 TAB PO TID PRN PAIN (Reported) Pregabalin (Lyrica) 300 MG CAPSULE 1 CAP PO BID NERVE PAIN (Reported) Tiotropium [place] (Spiriva) 18 MCG CAP.W.DEV 1 CAP INH DAILY COPD (Reported) Review of Systems Review of Systems Constitutional: Reports: see HPI. Cardiovascular: Denies: chest pain. Respiratory: Denies: short of breath. GI: Denies: abdominal pain. Musculoskeletal: Reports: see HPI (left LE pain). Skin: Reports: change in skin color (right LE). Hematologic/Endocrine: Denies: polyuria, polydipsia. 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 Home Who Do You Live With? child Services at Home: Nursing Smoking Status: Current Everyday Smoker ETOH Use: denies use Illicit Drug Use: denies illicit drug use Functional Ability ADLs Independent: dressing, eating, toileting, bathing. Ambulation: cane IADLs Needs Assist: shopping, housework. Exam & Diagnostic Data Last 24 Hrs of Vital Signs/I&O Vital Signs Date Time Temp Pulse Resp B/P B/P Pulse O2 O2 Flow FiO2 Mean Ox Delivery Rate 10/10 0629 98.9 79 18 140/70 93 Room Air 10/10 0025 90 Room Air 10/09 2337 98.4 90 18 170/84 90 Room Air 10/09 2220 99.0 88 16 148/79 92 10/09 1907 96 Nasal 2.0L Cannula 10/09 1906 79 18 112/55 89 Room Air 10/09 1656 99 Room Air 10/09 1611 99.3 99 16 161/73 90 Room Air Intake & Output 10/10 1600 10/10 0800 10/10 0000 Intake Total 660 0 Output Total Balance 660 0 Intake, Oral 660 0 Patient 268 lb 268 lb Weight Weight Reported by Patient Reported by Patient Measurement Method Physical Exam General Appearance: no apparent distress Skin: right LE chronic swelling along with skin changes Labs/Drew Results: Laboratory Tests 10/10 10/10 0740 0622 Chemistry Sodium (137 - 145 mmol/L) 140 Potassium (3.5 - 5.1 mmol/L) 4.1 Chloride (98 - 107 mmol/L) 103 Carbon Dioxide (22 - 30 mmol/L) 26 Anion Gap (5 - 16) 11 BUN (7 - 17 mg/dL) 35 H Creatinine (0.5 - 1.0 mg/dL) 3.5 H Estimated GFR (>60 ml/min) 13 L BUN/Creatinine Ratio (7 - 25 %) 10.0 Coagulation PT (9.4 - 12.5 SEC) 12.8 H INR (0.90 - 1.19) 1.22 H Hematology CBC w Diff NO MAN DIFF REQ WBC (4.8 - 10.8 /CUMM) 13.0 H RBC (4.20 - 5.40 /CUMM) 3.24 L Hgb (12.0 - 16.0 G/DL) 10.3 L Hct (37 - 47 %) 30.7 L MCV (81.0 - 99.0 FL) 94.6 MCH (27.0 - 31.0 PG) 31.9 H RDW (11.5 - 14.5 %) 14.9 H Plt Count (130 - 400 /CUMM) 262 MPV (7.4 - 10.4 FL) 7.1 L Gran % (42.2 - 75.2 %) 83.8 H Lymphocytes % (20.5 - 51.1 %) 9.0 L Monocytes % (1.7 - 9.3 %) 5.6 Eosinophils % (0 - 5 %) 1.1 Basophils % (0.0 - 2.0 %) 0.5 Absolute Granulocytes (1.4 - 6.5 /CUMM) 10.9 H Absolute Lymphocytes (1.2 - 3.4 /CUMM) 1.2 Absolute Monocytes (0.10 - 0.60 /CUMM) 0.7 H Absolute Eosinophils (0.0 - 0.7 /CUMM) 0.1 Absolute Basophils (0.0 - 0.2 /CUMM) 0.1 PUBS MCHC (33.0 - 37.0 G/DL) 33.7 Urines Urinalysis LIGHT H Urine Color (YEL,AMB,STR) YEL Urine Clarity (CLEAR) HAZY H Urine pH (5.0 - 8.0) 6.0 Ur Specific [place] (1.001 - 1.035) 1.020 Urine Protein (NEG,<30 MG/DL) >=300 H Urine Ketones (NEG) NEG Urine Nitrite (NEG) NEG Urine Bilirubin (NEG) NEG Urine Urobilinogen (0.1 - 1.0 EU/dl) 0.2 Ur Leukocyte Esterase (NEG) NEG Ur Microscopic SEDIMENT EXAMINED Urine RBC (0 - 5 /HPF) 1-3 Urine WBC (0 - 2 /HPF) 1-3 H Ur Epithelial Cells (NONE,FEW) FEW Urine Bacteria (NEG/NONE) MOD H Granular Casts (NONE /LPF) FEW H Urine Hemoglobin (NEG) SMALL H Urine Glucose (N MG/DL) 250 H 04/21 04/20 04/20 0045 2005 1845 Chemistry Lactic Acid (0.7 - 2.1 mmol/L) 1.8 Cancelled Coagulation PT Cancelled INR Cancelled 10/09 1800 Chemistry Sodium (137 - 145 mmol/L) 139 Potassium (3.5 - 5.1 mmol/L) 4.0 Chloride (98 - 107 mmol/L) 100 Carbon Dioxide (22 - 30 mmol/L) 25 Anion Gap (5 - 16) 14 BUN (7 - 17 mg/dL) 32 H Creatinine (0.5 - 1.0 mg/dL) 2.8 H Estimated GFR (>60 ml/min) 17 L BUN/Creatinine Ratio (7 - 25 %) 11.4 Glucose (65 - 99 mg/dL) 185 H Hemoglobin A1c (4.2 - 5.8 %) 7.4 H Calcium (8.4 - 10.2 mg/dL) 9.6 Total Bilirubin (0.2 - 1.3 mg/dL) 0.5 AST (14 - 36 U/L) 18 ALT (9 - 52 U/L) 29 Alkaline Phosphatase (<127 U/L) 95 Total Protein (6.3 - 8.2 g/dL) 7.8 Albumin (3.5 - 5.0 g/dL) 3.7 Globulin (1.9 - 4.2 gm/dL) 4.1 Albumin/Globulin Ratio (1.1 - 2.2 %) 0.9 L Vitamin B12 (239 - 931 pg/mL) 267 25-OH Vitamin D Total (30 - 100 ng/ml) 5.8 L Folate (2.76 - 20.0 ng/mL) 9.4 TSH (0.270 - 4.200 uIU/mL) 1.810 Free T4 (0.78 - 2.44 ng/dL) 1.05 Hematology CBC w Diff NO MAN DIFF REQ WBC (4.8 - 10.8 /CUMM) 15.3 H RBC (4.20 - 5.40 /CUMM) 3.74 L Hgb (12.0 - 16.0 G/DL) 11.6 L Hct (37 - 47 %) 34.9 L MCV (81.0 - 99.0 FL) 93.4 MCH (27.0 - 31.0 PG) 31.1 H RDW (11.5 - 14.5 %) 14.9 H Plt Count (130 - 400 /CUMM) 311 MPV (7.4 - 10.4 FL) 6.6 L Gran % (42.2 - 75.2 %) 90.3 H Lymphocytes % (20.5 - 51.1 %) 4.4 L Monocytes % (1.7 - 9.3 %) 3.3 Eosinophils % (0 - 5 %) 1.2 Basophils % (0.0 - 2.0 %) 0.8 Absolute Granulocytes (1.4 - 6.5 /CUMM) 13.8 H Absolute Lymphocytes (1.2 - 3.4 /CUMM) 0.7 L Absolute Monocytes (0.10 - 0.60 /CUMM) 0.5 Absolute Eosinophils (0.0 - 0.7 /CUMM) 0.2 Absolute Basophils (0.0 - 0.2 /CUMM) 0.1 PUBS MCHC (33.0 - 37.0 G/DL) 33.3 ESR Westergren (0 - 20 MM) 97 H Assessment/Plan Assessment/Plan 60-year-old female who has diabetes type 2, hypertension, hyperlipidemia, COPD, current everyday smoker, osteomyelitis, status post left lower extremity BKA, presents to the emergency room for evaluation of wound of the left leg stump. I was asked to see her for management of DM. Her Cr 3.5. DM management: 1. decrease Levemir to 45 units twice a day; 2. adjust Novolog coverage before meals and add Novolog coverage at bedtime --- detail see the inpatient DM orders; 3. monitor FSGs; will follow. Inpatient Diabetes Orders Before Each Meal: Bolus Insulin: Novolog < 80 mg/dl: no coverage 80-100 mg/dl: 10 units 101-120 mg/dl: 10 units 121-150 mg/dl: 10 units 151-200 mg/dl: 12 units 201-250 mg/dl: 14 units 251-300 mg/dl: 16 units 301-350 mg/dl: 18 units 351-400 mg/dl: 20 units > 400 mg/dl: 22 units Bedtime: Bolus Insulin: Novolog < 80 mg/dl: no coverage 80-100 mg/dl: no coverage 101-120 mg/dl: no coverage 121-150 mg/dl: no coverage 151-200 mg/dl: no coverage 201-250 mg/dl: no coverage 251-300 mg/dl: 2 units 301-350 mg/dl: 4 units 351-400 mg/dl: 6 units > 400 mg/dl: 8 units Consult Acknowledgment - Thank you for your consult request.
[2016-10-10 13:33] VITALS: BP 144/86
--- NOTE | 2016-10-10 14:54 | Cons- Infect Disease ---
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 On admission she was afebrile. Laboratory data revealed a white blood cell count of 15,000, ESR 97, BUN/creatinine 32 and 2.8, hemoglobin A1c 7.4. Chest x-ray revealed vascular prominence. CT of the left leg without contrast revealed prominent edema with area of fluid in the anterior aspect of the stump, suspicious for an abscess, with gas extending from the skin into the soft tissues, with no evidence of osteomyelitis. Bilateral lower extremity Dopplers were negative for right leg DVT, with poor compression and flow in the left mid and distal superficial femoral veins. In the emergency room she was given Ceftriaxone, Azithromycin, Vancomycin and Clindamycin, and she was continued on Clindamycin. She has remained afebrile since admission. At present she offers no specific complaints. Allergies/Medications Allergies: Coded Allergies: NO KNOWN ALLERGIES (09/21/15) Home Med List: Citalopram Hydrobromide (Citalopram HBr) 20 MG TABLET 1 TAB PO DAILY MENTAL HEALTH (Reported) Furosemide 40 MG TABLET 60 MG PO DAILY DIURETIC (Reported) Insulin Aspart, Recombinant (Novolog Flexpen) 100 UNIT/ML INSULN.PEN DM ( Reported) Insulin Detemir (Levemir Flextouch) 100 UNIT/ML (3 ML) INSULN.PEN 64 UNITS SC BID DM (Reported) Linagliptin (Tradjenta) 5 MG TABLET 1 TAB PO DAILY DM (Reported) Oxycodone HCl (Oxycontin) 80 MG TAB.ER.12H 1 TAB PO TID PRN PAIN (Reported) Pregabalin (Lyrica) 300 MG CAPSULE 1 CAP PO BID NERVE PAIN (Reported) Tiotropium [place] (Spiriva) 18 MCG CAP.W.DEV 1 CAP INH DAILY COPD (Reported) Past History Travel History Traveled to [place] past 21 day No Medical History Blood Transfusion Hx: No Neurological: NONE EENT: NONE Cardiovascular: hypertension, hyperlipidemia Respiratory: COPD Gastrointestinal: NONE Hepatic: NONE Renal: chronic kidney disease Psychiatric: depression Endocrine: diabetes Blood Disorders: NONE 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 Home Who Do You Live With? child Services at Home: Nursing Smoking Status: Current Everyday Smoker ETOH Use: denies use Illicit Drug Use: denies illicit drug use Functional Ability ADLs Independent: dressing, eating, toileting, bathing. Ambulation: cane IADLs Needs Assist: shopping, housework. Review of Systems Review of Systems All Other Systems: Reviewed and Negative Exam & Diagnostic Data Last 24 Hrs of Vital Signs/I&O Vital Signs Date Time Temp Pulse Resp B/P B/P Pulse O2 O2 Flow FiO2 Mean Ox Delivery Rate 10/10 1333 98.4 68 20 144/86 93 10/10 0629 98.9 79 18 140/70 93 Room Air 10/10 0025 90 Room Air 10/09 2337 98.4 90 18 170/84 90 Room Air 10/09 2220 99.0 88 16 148/79 92 10/09 1907 96 Nasal 2.0L Cannula 10/09 1906 79 18 112/55 89 Room Air 10/09 1656 99 Room Air 10/09 1611 99.3 99 16 161/73 90 Room Air Intake & Output 10/10 1600 10/10 0800 10/10 0000 Intake Total 660 0 Output Total Balance 660 0 Intake, Oral 660 0 Patient 268 lb 268 lb Weight Weight Reported by Patient Reported by Patient Measurement Method Physical Exam Other Physical Findings: She is awake and alert in no acute distress. She is afebrile. Skin reveals no rash. HEENT exam is negative. Neck is supple with no adenopathy. Lungs are clear. Heart regular rhythm with no murmur. Abdomen is obese, soft, nontender with positive bowel sounds. Back no CVA tenderness. Extremities left BKA stump with an ulcer, with fibrinous exudate, surrounding erythema, warmth and edema, nontender to palpation; venous stasis changes to the right leg; right foot status post amputations of the first and third toes, with an ulcer on the dorsal aspect of the fourth toe; decreased pulses in the right foot. Neuro neuropathy of the right foot. Last 24 Hours of Lab Results: Laboratory Tests 10/10 10/10 0740 0622 Chemistry Sodium (137 - 145 mmol/L) 140 Potassium (3.5 - 5.1 mmol/L) 4.1 Chloride (98 - 107 mmol/L) 103 Carbon Dioxide (22 - 30 mmol/L) 26 Anion Gap (5 - 16) 11 BUN (7 - 17 mg/dL) 35 H Creatinine (0.5 - 1.0 mg/dL) 3.5 H Estimated GFR (>60 ml/min) 13 L BUN/Creatinine Ratio (7 - 25 %) 10.0 Coagulation PT (9.4 - 12.5 SEC) 12.8 H INR (0.90 - 1.19) 1.22 H Hematology CBC w Diff NO MAN DIFF REQ WBC (4.8 - 10.8 /CUMM) 13.0 H RBC (4.20 - 5.40 /CUMM) 3.24 L Hgb (12.0 - 16.0 G/DL) 10.3 L Hct (37 - 47 %) 30.7 L MCV (81.0 - 99.0 FL) 94.6 MCH (27.0 - 31.0 PG) 31.9 H RDW (11.5 - 14.5 %) 14.9 H Plt Count (130 - 400 /CUMM) 262 MPV (7.4 - 10.4 FL) 7.1 L Gran % (42.2 - 75.2 %) 83.8 H Lymphocytes % (20.5 - 51.1 %) 9.0 L Monocytes % (1.7 - 9.3 %) 5.6 Eosinophils % (0 - 5 %) 1.1 Basophils % (0.0 - 2.0 %) 0.5 Absolute Granulocytes (1.4 - 6.5 /CUMM) 10.9 H Absolute Lymphocytes (1.2 - 3.4 /CUMM) 1.2 Absolute Monocytes (0.10 - 0.60 /CUMM) 0.7 H Absolute Eosinophils (0.0 - 0.7 /CUMM) 0.1 Absolute Basophils (0.0 - 0.2 /CUMM) 0.1 PUBS MCHC (33.0 - 37.0 G/DL) 33.7 Urines Urinalysis LIGHT H Urine Color (YEL,AMB,STR) YEL Urine Clarity (CLEAR) HAZY H Urine pH (5.0 - 8.0) 6.0 Ur Specific [place] (1.001 - 1.035) 1.020 Urine Protein (NEG,<30 MG/DL) >=300 H Urine Ketones (NEG) NEG Urine Nitrite (NEG) NEG Urine Bilirubin (NEG) NEG Urine Urobilinogen (0.1 - 1.0 EU/dl) 0.2 Ur Leukocyte Esterase (NEG) NEG Ur Microscopic SEDIMENT EXAMINED Urine RBC (0 - 5 /HPF) 1-3 Urine WBC (0 - 2 /HPF) 1-3 H Ur Epithelial Cells (NONE,FEW) FEW Urine Bacteria (NEG/NONE) MOD H Granular Casts (NONE /LPF) FEW H Urine Hemoglobin (NEG) SMALL H Urine Glucose (N MG/DL) 250 H 10/10 184 Chemistry Lactic Acid (0.7 - 2.1 mmol/L) 1.8 Cancelled Coagulation PT Cancelled INR Cancelled 10/09 1800 Chemistry Sodium (137 - 145 mmol/L) 139 Potassium (3.5 - 5.1 mmol/L) 4.0 Chloride (98 - 107 mmol/L) 100 Carbon Dioxide (22 - 30 mmol/L) 25 Anion Gap (5 - 16) 14 BUN (7 - 17 mg/dL) 32 H Creatinine (0.5 - 1.0 mg/dL) 2.8 H Estimated GFR (>60 ml/min) 17 L BUN/Creatinine Ratio (7 - 25 %) 11.4 Glucose (65 - 99 mg/dL) 185 H Hemoglobin A1c (4.2 - 5.8 %) 7.4 H Calcium (8.4 - 10.2 mg/dL) 9.6 Total Bilirubin (0.2 - 1.3 mg/dL) 0.5 AST (14 - 36 U/L) 18 ALT (9 - 52 U/L) 29 Alkaline Phosphatase (<127 U/L) 95 Total Protein (6.3 - 8.2 g/dL) 7.8 Albumin (3.5 - 5.0 g/dL) 3.7 Globulin (1.9 - 4.2 gm/dL) 4.1 Albumin/Globulin Ratio (1.1 - 2.2 %) 0.9 L Vitamin B12 (239 - 931 pg/mL) 267 25-OH Vitamin D Total (30 - 100 ng/ml) 5.8 L Folate (2.76 - 20.0 ng/mL) 9.4 TSH (0.270 - 4.200 uIU/mL) 1.810 Free T4 (0.78 - 2.44 ng/dL) 1.05 Hematology CBC w Diff NO MAN DIFF REQ WBC (4.8 - 10.8 /CUMM) 15.3 H RBC (4.20 - 5.40 /CUMM) 3.74 L Hgb (12.0 - 16.0 G/DL) 11.6 L Hct (37 - 47 %) 34.9 L MCV (81.0 - 99.0 FL) 93.4 MCH (27.0 - 31.0 PG) 31.1 H RDW (11.5 - 14.5 %) 14.9 H Plt Count (130 - 400 /CUMM) 311 MPV (7.4 - 10.4 FL) 6.6 L Gran % (42.2 - 75.2 %) 90.3 H Lymphocytes % (20.5 - 51.1 %) 4.4 L Monocytes % (1.7 - 9.3 %) 3.3 Eosinophils % (0 - 5 %) 1.2 Basophils % (0.0 - 2.0 %) 0.8 Absolute Granulocytes (1.4 - 6.5 /CUMM) 13.8 H Absolute Lymphocytes (1.2 - 3.4 /CUMM) 0.7 L Absolute Monocytes (0.10 - 0.60 /CUMM) 0.5 Absolute Eosinophils (0.0 - 0.7 /CUMM) 0.2 Absolute Basophils (0.0 - 0.2 /CUMM) 0.1 PUBS MCHC (33.0 - 37.0 G/DL) 33.3 ESR Westergren (0 - 20 MM) 97 H Last 24 Hours of Drew Results: Blood cultures 2 October 09 negative Left leg culture October 09 positive for Staph aureus Urine strep pneumo antigen and Legionella antigen October 10 negative Diagnostic Data Recent Imaging Findings: Chest x-ray October 09, personally reviewed, revealed vascular prominence, with no evidence of pneumonia CT of the left leg without contrast October 09 revealed prominent edema with area of fluid in the anterior aspect of the stump, suspicious for an abscess, with gas extending from the skin into the soft tissues, with no evidence of osteomyelitis. Bilateral lower extremity Dopplers October 09 negative for right leg DVT, with poor compression and flow in the left mid and distal superficial femoral veins. Assessment/Plan Assessment/Plan Impression: This is a 60-year-old woman with a history of diabetes, chronic kidney disease, neuropathy and peripheral vascular disease, status post left BKA and amputations of the right first and third toes, admitted on October 09 with a six-week history of an ulcer at the left BKA stump and the more acute onset of fevers and chills, found to be afebrile with a leukocytosis and with CT of the left lower extremity suggestive of an abscess. She appears to have at least a cellulitis of the left BKA stump, but suspect that she also has a collection, based on the CT findings, with gas in the soft tissues. Underlying osteomyelitis must also be considered. Her ultrasound findings are of unclear significance, with her history of a DVT. A superficial culture is growing Staph aureus, and, though this is of unclear significance, it would be reasonable to cover her for Staph, including MRSA, and strep pending further evaluation. Her renal failure has worsened, possibly secondary to ATN due to her infection or diuresis, with patient continued on Lasix, or urinary retention. Suggestion: 1. Ultrasound of the left BKA stump, with aspiration if any collection identified 2. Vascular surgery evaluation regarding the left BKA stump and Doppler findings 3. MRI of the left leg 4. Bladder scan 5. Renal ultrasound and consider renal evaluation if creatinine worsens 6. X-ray of the right foot 7. Reevaluate need for Lasix given her worsening creatinine 8. Follow-up recent superficial culture 9. Discontinue Clindamycin 10. Would give Vancomycin 1.5 g IV 1 and obtain a random Vancomycin level in the a.m., with further dosing based on this level and on her cultures Consult Acknowledgment - Thank you for your consult request.
--- NOTE | 2016-10-10 17:09 | NUR ---
1545-PT LEFT FLOOR FOR ULTRASOUND AND MRI VIA STRETCHER
--- NOTE | 2016-10-10 17:13 | ULTRASOUND REPORT ---
EXAMINATION: US SUPERFICIAL IMAGING, EXTREMITY CLINICAL INFORMATION: Fever. Increased white blood cell count. COMPARISON: Lower extremity CT 10/09/2016 TECHNIQUE: Grayscale and color Doppler imaging was obtained in the region of the left knee (amputation site) FINDINGS: Diffuse region of decreased echogenicity and increased vascularity. Only a small focus of fluid measuring 1.2 x 0.2 cm was appreciated approximately 1 cm below the skin surface. The remainder of this region likely represents complex, more solid than fluid. Packing is seen within the open wound laterally. IMPRESSION: Complex area of decreased echogenicity and increased vascularity with only minimal simple fluid. This likely represents a complex fluid collection containing primarily solid components. Case was reviewed with Dr. Munoz. The decision was made to not aspirate at this time given lack of simple fluid. The patient is to undergo MRI imaging.
--- NOTE | 2016-10-10 18:26 | NUR ---
1800-PT RETURNED TO FLOOR FROM MRI VIA STRETCHER
--- NOTE | 2016-10-10 19:14 | PN- Att Addend ---
Attending Addendum Attending Brief Note Patient feeling a little better, she is a febrile, vital signs are stable, the leg is about the same. Had infectious disease consultation the culture of the secretions noted blood cultures are negative so far urobilinogen M is negative. Doppler results noted. We'll continue antibiotic therapy as per ID with her white count is 13,000 slightly less than yesterday. That still high. We'll request vascular surgery evaluation. We'll monitor closely her renal function and if necessary get a renal consult Current Medications Sig/[place] Start time Last Medication Dose Route Stop Time Status Admin Acetaminophen 650 MG Q6P PRN 10/09 2030 AC PO Acetaminophen/ 1 TAB Q6P PRN 10/09 2030 AC Hydrocodone Bitart PO Azithromycin 500 MG ONCE ONE 10/09 1845 DC 10/09 Sodium Chloride 250 ML IV 10/09 1944 1905 Citalopram 20 MG DAILY 10/10 1000 AC 10/10 Hydrobromide PO 1005 Clindamycin 600 MG Q8 10/10 0600 DC 10/10 Dextrose/Water 50 ML IV 1314 Clindamycin 600 MG ONCE ONE 10/09 1930 DC 10/09 Dextrose/Water 50 ML IV 10/09 1959 2149 Dextrose/Sodium 1,000 ML Q8H 10/10 1045 CAN Chloride IV Docusate Sodium 100 MG BID 10/10 1341 AC 10/10 PO 1449 Ergocalciferol 50,000 IU Q168 10/16 1000 AC PO Furosemide 60 MG DAILY 10/10 1000 DC 10/10 PO 1005 Guaifenesin/ 10 ML ONCE ONE 10/10 1600 DC 10/10 Dextromethorphan PO 10/10 1601 1748 Heparin Sodium 5,000 UNIT Q8 10/09 2200 AC 10/10 (Porcine) SC 1314 Hydromorphone HCl 0.5 MG Q6-PRN PRN 10/09 2030 AC IV Influenza Virus 0.5 ML 1000 10/10 1000 DC 10/10 Vaccine IM 10/10 1001 1006 Insulin Aspart 0 TIDAC/HS 10/10 1200 AC 10/10 SC 1749 Insulin Aspart 0 TIDAC 10/10 0800 DC 10/10 SC 0823 Insulin Detemir 45 UNITS BID 10/10 2200 AC SC Insulin Detemir 60 UNITS BID 10/09 2200 DC 10/10 SC 1005 Nicotine 0 .STK-MED ONE 10/10 2051 MI TOP Nicotine 14 MG DAILY 10/09 202 AC 10/10 TOP 1006 Oxycodone HCl 80 MG Q8 10/090 AC 10/10 PO 1314 Patient Medication 1 ED .STK-MED ONE 10/10 1354 DC Teaching ED 10/10 1355 Pregabalin 300 MG BID 10/09 2200 AC 10/10 PO 1005 Sodium Chloride 1,000 ML Q10H 10/10 1330 DC IV 10/10 2329 Sodium Chloride 1,000 ML Q10H 10/10 1045 DC 10/10 IV 1210 Tiotropium [place] 1 PUF DAILY 10/10 1000 AC 10/10 INH 1003 Vancomycin HCl 1,500 MG 10/10 220 DC Sodium Chloride 500 ML IV Vancomycin HCl 1,500 MG ONE ONE 10/10 1700 DC 10/10 Sodium Chloride 500 ML IV 10/10 1859 1901 Vancomycin HCl 1,500 MG ONCE ONE 10/10 1645 CAN IV 10/10 1646 Vancomycin HCl 0 .STK-MED ONE 10/09 2050 DC .ROUTE Vancomycin HCl 1,000 MG ONCE ONE 10/09 1930 DC 10/09 Sodium Chloride 250 ML IV 10/09 2028 2218 Laboratory Tests 10/10/16 0740: Urinalysis LIGHT H, Urine Color YEL, Urine Clarity HAZY H, Urine pH 6.0, Ur Specific [place] 1.020, Urine Protein >=300 H, Urine Ketones NEG, Urine Nitrite NEG, Urine Bilirubin NEG, Urine Urobilinogen 0.2, Ur Leukocyte Esterase NEG, Ur Microscopic SEDIMENT EXAMINED, Urine RBC 1-3, Urine WBC 1-3 H, Ur Epithelial Cells FEW, Urine Bacteria MOD H, Granular Casts FEW H, Urine Hemoglobin SMALL H, Urine Glucose 250 H 10/10/16 0622: Anion Gap 11, Estimated GFR 13 L, BUN/Creatinine Ratio 10.0, PT 12.8 H, INR 1.22 H, CBC w Diff NO MAN DIFF REQ, RBC 3.24 L, MCV 94.6, MCH 31.9 H, RDW 14.9 H, MPV 7.1 L, Gran % 83.8 H, Lymphocytes % 9.0 L, Monocytes % 5.6, Eosinophils % 1.1, Basophils % 0.5, Absolute Granulocytes 10.9 H, Absolute Lymphocytes 1.2, Absolute Monocytes 0.7 H, Absolute Eosinophils 0.1, Absolute Basophils 0.1, PUBS MCHC 33.7, Random Vancomycin 13.9 10/10/16 0045: Lactic Acid 1.8 10/09/162005: PT Cancelled, INR Cancelled 10/09/16 1845: Lactic Acid Cancelled 10/09/16 1800: Anion Gap 14, Estimated GFR 17 L, BUN/Creatinine Ratio 11.4, Glucose 185 H, Hemoglobin A1c 7.4 H, Calcium 9.6, Total Bilirubin 0.5, AST 18, ALT 29, Alkaline Phosphatase 95, Total Protein 7.8, Albumin 3.7, Globulin 4.1, Albumin/ Globulin Ratio 0.9 L, Vitamin B12 267, 25-OH Vitamin D Total 5.8 L, Folate 9.4 , TSH 1.810, Free T4 1.05, CBC w Diff NO MAN DIFF REQ, RBC 3.74 L, MCV 93.4, MCH 31.1 H, RDW 14.9 H, MPV 6.6 L, Gran % 90.3 H, Lymphocytes % 4.4 L, Monocytes % 3.3, Eosinophils % 1.2, Basophils % 0.8, Absolute Granulocytes 13.8 H, Absolute Lymphocytes 0.7 L, Absolute Monocytes 0.5, Absolute Eosinophils 0.2 , Absolute Basophils 0.1, PUBS MCHC 33.3, ESR Westergren 97 H Microbiology 10/11 739 URINE ROUT: Legionella Antigen - COMP 10/11 739 URINE ROUT: Streptococcus pneumoniae Antigen (M - COMP Microbiology Date/Time Procedure - Status Source Growth 10/11 1839 Respiratory Culture - ORD LOWER RESP 10/11 1839 Gram Stain - ORD LOWER RESP 10/10 144 Body Fluid Culture - COLB BODY FLUID 10/10 144 Gram Stain - COLB BODY FLUID 10/10 09 Respiratory Culture - CAN LOWER RESP Cancelled: NUMBER OF SQUAMOUS CELLS INDICATES POOR QUALITY SPECIMEN 10/10 899 Gram Stain - CAN LOWER RESP Cancelled: NUMBER OF SQUAMOUS CELLS INDICATES POOR QUALITY SPECIMEN 10/11 739 Legionella Antigen - COMP URINE ROUT 10/11 739 Streptococcus pneumoniae Antigen (M - COMP URINE ROUT 10/09 2009 Culture & Sensitivity - RES EXTREMITIE STAPH AUREUS 10/09 2009 Gram Stain - RES EXTREMITIE Vital Signs Date Time Temp Pulse Resp B/P B/P Pulse O2 O2 Flow FiO2 Mean Ox Delivery Rate 10/10 1333 98.4 68 20 144/86 93 Intake & Output 10/10 1600 Intake Total 1100 Output Total Balance 1100 Intake, IV 500 Intake, Oral 600
--- NOTE | 2016-10-10 19:33 | Cons- Vascular Surgery ---
General Information and HPI Consulting Request Date of Consult: 10/10/16 Requested By: GARRET ALVAREZ MD Reason for Consult: Left LE Venous duplex demonstrating poor SFV compressibility and flow in the setting of a nonhealing left BKA ulcer... Please assist with evaluation and management. Source of Information: patient, family (PATIENTS DAUGHTER) Exam Limitations: no limitations History of Present Illness: This is a 60-year-old female with a past medical history significant for insulin -dependent Diabetes, hypertension, hyperlipidemia, chronic kidney disease, and known to our vascular practice for lower extremity DVT, mixed chronic venous insufficiency and peripheral arterial disease s/p prior left BKA. The patient was admitted to the medical service 48 hours ago with fever in the setting of a nonhealing left BKA wound with cellulitis. The pt tells me that approximately 1 month ago she developed a blister on the anterolateral aspect of her left BKA stump. Despite daily dressing care and modifications to her prosthesis her blister progressed to a full-thickness ulcer. Over the last 48 hours, the patient developed fevers w/ increasing pain, redness and purulent drainage from the wound. On admission patient had a low-grade temperature to 99 9, and a white blood cell count of 15,000. ESR 97. Her left below-knee stump is edematous, erythematous with mucopurulent drainage from the anterolateral ulcer. The wound was cultured, and the patient was started on IV vancomycin. Preliminary Gram stain is consistent with staph. A CT of the left leg was obtained demonstrating edema the anterior aspect of the stump with fluid collection suspicious for abscess. No gross evidence of osteo. A left leg venous duplex was also obtained in the setting of Edema. There was no evidence of acute DVT, but it did demonstrate poor compression and flow of the mid and distal SFV. A vascular Surgery consultation was requested for this pt to comment on the significance of this US finding in the setting of the pts Left BKA wound/infection. Allergies/Medications Allergies: Coded Allergies: NO KNOWN ALLERGIES (09/21/15) Home Med List: Citalopram Hydrobromide (Citalopram HBr) 20 MG TABLET 1 TAB PO DAILY MENTAL HEALTH (Reported) Furosemide 40 MG TABLET 60 MG PO DAILY DIURETIC (Reported) Insulin Aspart, Recombinant (Novolog Flexpen) 100 UNIT/ML INSULN.PEN DM ( Reported) Insulin Detemir (Levemir Flextouch) 100 UNIT/ML (3 ML) INSULN.PEN 64 UNITS SC BID DM (Reported) Linagliptin (Tradjenta) 5 MG TABLET 1 TAB PO DAILY DM (Reported) Oxycodone HCl (Oxycontin) 80 MG TAB.ER.12H 1 TAB PO TID PRN PAIN (Reported) Pregabalin (Lyrica) 300 MG CAPSULE 1 CAP PO BID NERVE PAIN (Reported) Tiotropium [place] (Spiriva) 18 MCG CAP.W.DEV 1 CAP INH DAILY COPD (Reported) Current Medications: Current Medications Sig/Suleman Start time Last Medication Dose Route Stop Time Status Admin Acetaminophen 650 MG Q6P PRN 10/09 2030 AC PO Acetaminophen/ 1 TAB Q6P PRN 10/09 2030 AC Hydrocodone Bitart PO Azithromycin 500 MG ONCE ONE 10/09 1845 DC 10/09 Sodium Chloride 250 ML IV 10/09 1944 1905 Citalopram 20 MG DAILY 10/10 1000 AC 10/10 Hydrobromide PO 1005 Clindamycin 600 MG Q8 10/10 0600 DC 10/10 Dextrose/Water 50 ML IV 1314 Clindamycin 600 MG ONCE ONE 10/09 1930 DC 10/09 Dextrose/Water 50 ML IV 10/09 1959 2149 Dextrose/Sodium 1,000 ML Q8H 10/10 1045 CAN Chloride IV Docusate Sodium 100 MG BID 10/10 1341 AC 10/10 PO 1449 Ergocalciferol 50,000 IU Q168 10/16 1000 AC PO Furosemide 60 MG DAILY 10/10 1000 DC 10/10 PO 1005 Guaifenesin/ 10 ML ONCE ONE 10/10 1600 DC 10/10 Dextromethorphan PO 10/10 1601 1748 Heparin Sodium 5,000 UNIT Q8 10/09 2200 AC 10/10 (Porcine) SC 1314 Hydromorphone HCl 0.5 MG Q6-PRN PRN 10/09 2030 AC IV Influenza Virus 0.5 ML 1000 10/10 1000 DC 10/10 Vaccine IM 10/10 1001 1006 Insulin Aspart 0 TIDAC/HS 10/10 1200 AC 10/10 SC 1749 Insulin Aspart 0 TIDAC 10/10 0800 DC 10/10 SC 0823 Insulin Detemir 45 UNITS BID 10/10 2200 AC SC Insulin Detemir 60 UNITS BID 10/09 2200 DC 10/10 SC 1005 Nicotine 0 .STK-MED ONE 10/10 2051 DC TOP Nicotine 14 MG DAILY 10/10 2027 AC 10/10 TOP 1006 Oxycodone HCl 80 MG Q8 10/09 2199 AC 10/10 PO 1314 Patient Medication 1 ED .STK-MED ONE 10/10 1354 DC Teaching ED 10/10 1355 Pregabalin 300 MG BID 10/09 220 AC 10/10 PO 1005 Sodium Chloride 1,000 ML Q10H 10/10 1330 DC IV 10/10 2329 Sodium Chloride 1,000 ML Q10H 10/10 1045 DC 10/10 IV 1210 Tiotropium [place] 1 PUF DAILY 10/10 1000 AC 10/10 INH 1003 Vancomycin HCl 1,500 MG 10/10 DC Sodium Chloride 500 ML IV Vancomycin HCl 1,500 MG ONE ONE 10/10 1700 DC 10/10 Sodium Chloride 500 ML IV 10/10 1859 1901 Vancomycin HCl 1,500 MG ONCE ONE 10/10 1645 CAN IV 10/10 1646 Vancomycin HCl 0 .STK-MED ONE 10/09 2050 DC .ROUTE Vancomycin HCl 1,000 MG ONCE ONE 10/09 1930 DC 10/09 Sodium Chloride 250 ML IV 10/098 Past History Medical History Blood Transfusion Hx: No Neurological: NONE EENT: NONE Cardiovascular: hypertension, hyperlipidemia Respiratory: COPD Gastrointestinal: NONE Hepatic: NONE Renal: chronic kidney disease Psychiatric: depression Endocrine: diabetes Blood Disorders: NONE 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 Home Who Do You Live With? child Services at Home: Nursing Smoking Status: Current Everyday Smoker ETOH Use: denies use Illicit Drug Use: denies illicit drug use Functional Ability ADLs Independent: dressing, eating, toileting, bathing. Ambulation: cane IADLs Needs Assist: shopping, housework. Review of Systems Review of Systems: Patient denies headache, dizziness, visual changes Patient currently denies fever, chills Patient denies chest pain, palpitations, shortness of breath Patient denies nausea, vomiting, abdominal pain Patient denies dysuria Exam & Diagnostic Data Vital Signs and I&O Vital Signs Date Time Temp Pulse Resp B/P B/P Pulse O2 O2 Flow FiO2 Mean Ox Delivery Rate 10/10 1333 98.4 68 20 144/86 93 10/10 0629 98.9 79 18 140/70 93 Room Air 10/10 0025 90 Room Air 10/09 2337 98.4 90 18 170/84 90 Room Air 10/09 2220 99.0 88 16 148/79 92 Intake & Output 10/10 1600 10/10 0800 10/10 0000 10/09 1600 10/09 0800 10/09 0000 Intake Total 1100 660 0 Output Total Balance 1100 660 0 Intake, IV 500 Intake, Oral 600 660 0 Patient 268 lb 268 lb Weight Weight Reported by Patient Reported by Patient Measurement Method Physical Exam: Gen: Patient is mildly lethargic, but easily arousable, appropriately conversant. Moving all extremities, following all commands. CV: Regular, S1-S2 Pulm: Slightly decreased at the bilateral bases Abd: Obese, nontender, positive bowel sounds. Ext: Left BKA stump w/ a 2-1/2 cm circumferential full-thickness ulceration at the anterior lateral aspect. Wound probes deep with Q-tip, questionably to bone... Thick exudative material Centrally with some mucopurulent discharge. Wound edges are clean, no necrosis. Blanching erythema circumferentially at the distal stump, stump otherwise supple, non-fluctuant, no crepitus No ascending erythema superior to the knee joint. Last 24 Hours of Labs: Laboratory Tests 10/10 10/10 0740 0622 Chemistry Sodium (137 - 145 mmol/L) 140 Potassium (3.5 - 5.1 mmol/L) 4.1 Chloride (98 - 107 mmol/L) 103 Carbon Dioxide (22 - 30 mmol/L) 26 Anion Gap (5 - 16) 11 BUN (7 - 17 mg/dL) 35 H Creatinine (0.5 - 1.0 mg/dL) 3.5 H Estimated GFR (>60 ml/min) 13 L BUN/Creatinine Ratio (7 - 25 %) 10.0 Coagulation PT (9.4 - 12.5 SEC) 12.8 H INR (0.90 - 1.19) 1.22 H Hematology CBC w Diff NO MAN DIFF REQ WBC (4.8 - 10.8 /CUMM) 13.0 H RBC (4.20 - 5.40 /CUMM) 3.24 L Hgb (12.0 - 16.0 G/DL) 10.3 L Hct (37 - 47 %) 30.7 L MCV (81.0 - 99.0 FL) 94.6 MCH (27.0 - 31.0 PG) 31.9 H RDW (11.5 - 14.5 %) 14.9 H Plt Count (130 - 400 /CUMM) 262 MPV (7.4 - 10.4 FL) 7.1 L Gran % (42.2 - 75.2 %) 83.8 H Lymphocytes % (20.5 - 51.1 %) 9.0 L Monocytes % (1.7 - 9.3 %) 5.6 Eosinophils % (0 - 5 %) 1.1 Basophils % (0.0 - 2.0 %) 0.5 Absolute Granulocytes (1.4 - 6.5 /CUMM) 10.9 H Absolute Lymphocytes (1.2 - 3.4 /CUMM) 1.2 Absolute Monocytes (0.10 - 0.60 /CUMM) 0.7 H Absolute Eosinophils (0.0 - 0.7 /CUMM) 0.1 Absolute Basophils (0.0 - 0.2 /CUMM) 0.1 PUBS MCHC (33.0 - 37.0 G/DL) 33.7 Toxicology Random Vancomycin (ug/ml) 13.9 Urines Urinalysis LIGHT H Urine Color (YEL,AMB,STR) YEL Urine Clarity (CLEAR) HAZY H Urine pH (5.0 - 8.0) 6.0 Ur Specific [place] (1.001 - 1.035) 1.020 Urine Protein (NEG,<30 MG/DL) >=300 H Urine Ketones (NEG) NEG Urine Nitrite (NEG) NEG Urine Bilirubin (NEG) NEG Urine Urobilinogen (0.1 - 1.0 EU/dl) 0.2 Ur Leukocyte Esterase (NEG) NEG Ur Microscopic SEDIMENT EXAMINED Urine RBC (0 - 5 /HPF) 1-3 Urine WBC (0 - 2 /HPF) 1-3 H Ur Epithelial Cells (NONE,FEW) FEW Urine Bacteria (NEG/NONE) MOD H Granular Casts (NONE /LPF) FEW H Urine Hemoglobin (NEG) SMALL H Urine Glucose (N MG/DL) 250 H 10/10 0045 Chemistry Lactic Acid (0.7 - 2.1 mmol/L) 1.8 Assessment/Plan Assessment/Plan This is a 60-year-old female with a past medical history significant for insulin -dependent Diabetes, hypertension, hyperlipidemia, chronic kidney disease, and known to our vascular practice for lower extremity DVT, mixed chronic venous insufficiency and peripheral arterial disease s/p prior left BKA. Admitted to the medical service 48 hours ago with fever in the setting of a nonhealing left BKA wound with cellulitis. +Leukocytosis, elev ESR. CT Questionable for soft tissue Abscess. Awaiting MRI to r/o Osteomyelitis. Left Leg Duplex US...demonstrating poor compressibility and low flow in the mid and distal SFV Vascular surgery asked to comment on this finding. - All Patient history reviewed including office notes/imaging from our [facility] practice. There are several prior ultrasounds demonstrating the presence of chronic occlusive thrombus/ Scarring in the left SFV consistent with the pts past hx of Left leg DVT. I believe that the current US findings are reflective of a chronic scarring related to her previous left leg DVT and not an acute process. - No indication for Vascular intervention or therapeutic AC at this time agree w/ SC Heparin for VTE prophylaxis. - Await ID and Wound Care consultations await MRI to r/o osteomyelitis continue current Abx and apply Silver Alginate to wound pending WC recommendations - may require Surgical debridement and VAC Thank you for allowing us to participate in [facility] Please call with further questions...we will continue to follow with you Problem List: 1. Cellulitis 2. Leukocytosis Consult Acknowledgment - Thank you for your consult request.
--- NOTE | 2016-10-10 21:18 | MRI REPORT ---
EXAMINATION: MR KNEE WITHOUT CONTRAST, LEFT CLINICAL INFORMATION: Discharge from ulcer of the left knee. Fever. Questionable abscess. History of left below-knee amputation. COMPARISON: CT dated 10/09/2016. TECHNIQUE: MRI of the knee without contrast is performed using routine sequences. FINDINGS: MENISCI: There is a skin ulceration at the anterolateral margin of the stump which measures 2 x 2 cm in area and 0.4 cm in depth. The underlying soft tissues are markedly edematous and thickened. No simple fluid collections are identified. Complex fluid may be present. The area of soft tissue inflammation has a depth of 2.8 cm, extending to the level of the underlying bone. The subcutaneous edema and soft tissue swelling is present around the stump diffusely, most pronounced anterolaterally. There is significant underlying periosteal edema at the anterolateral aspect of the amputated margin of the proximal tibia. The underlying bone marrow signal is normal however, without significant reactive underlying intramedullary edema or loss of the normal T1 marrow signal. The distal fibula is also normal in signal intensity. Underlying musculature is atrophic and fatty-replaced. There is marked intramuscular edema signal at the atrophic tibialis anterior. No fascial collections are identified. IMPRESSION: 1. Skin ulceration at the anterolateral margin of the stump with marked underlying soft tissue inflammation. No simple fluid collections are identified. The sensitivity and specificity for complex collections in the subcutaneous fat is limited without intravenous contrast. 2. Inflammation of the underlying tibialis anterior muscle and periosteum of the proximal tibia without evidence of osteomyelitis or deep abscess.
[2016-10-10 23:21] VITALS: BP 132/80
--- NOTE | 2016-10-11 05:45 | NUR ---
PT VERY DROWSY AND DIFFICULT TO AROUSE. CALLED [facility] [employer] SPECIALIST EDITING INTERN AND ADVISED PT ON OXYCONTIN 80MG Q12 @HOME. EMAR STATES OXYCONTIN 80MG Q8. REQUESTED THIS BE REVIEWED AND CONSIODER DECREASING.
[2016-10-11 08:07] LABS: ABSOLUTE BASOPHIL COUNT 0.1 /CUMM (0.0-0.2); ABSOLUTE EOSINOPHIL COUNT 0.5 /CUMM (0.0-0.7); ABSOLUTE GRANULOCYTE CT 5.2 /CUMM (1.4-6.5); ABSOLUTE LYMPH COUNT 1.6 /CUMM (1.2-3.4); ABSOLUTE MONOCYTE COUNT 0.5 /CUMM (0.10-0.60); BASOPHIL % 0.8 % (0.0-2.0); EOSINOPHIL % 6.2 % (0-5); GRANULOCYTE % 65.8 % (42.2-75.2); HEMATOCRIT 28.2 % (37-47); MEAN CORPUSCULAR HGB 31.3 PG (27.0-31.0); MEAN CORPUSCULAR HGB CONC 33.4 G/DL (33.0-37.0); MEAN CORPUSCULAR VOLUME 93.4 FL (81.0-99.0); MEAN PLATELET VOLUME 6.9 FL (7.4-10.4); PLATELET COUNT 224 /CUMM (130-400); RBC DISTRIBUTION WIDTH 15.5 % (11.5-14.5); RED BLOOD CELL CT 3.02 /CUMM (4.20-5.40); WHITE BLOOD CELL COUNT 7.9 /CUMM (4.8-10.8)
--- NOTE | 2016-10-11 08:15 | PN- Housestaff ---
See Addendum Subjective Follow-up For: Cellulitis Possible Osteomyelitis Subjective: Patient seen and examined. She is seen sitting upright at her bedside resting comfortably. She appears to be in no acute distress. She admits to being tired stating that she did not sleep well last night because the bed is "uncomfortable ". She feels sick but denies any specific complaints. She does admit to some shortness of breath that is reportedly baseline. Additionally she denies any lightheadedness/dizziness, fever, chills, headache, chest pain, palpitations, cough, nausea, vomiting, diarrhea. No overnight events reported. Review of Systems Constitutional: Reports: see HPI. Objective Last 24 Hrs of Vital Signs/I&O Vital Signs Date Time Temp Pulse Resp B/P B/P Pulse O2 O2 Flow FiO2 Mean Ox Delivery Rate 10/11 0000 Room Air 10/10 2321 98.1 69 20 132/80 94 Room Air 10/10 1333 98.4 68 20 144/86 93 Intake & Output 10/11 1600 10/11 0800 10/11 0000 Intake Total 450 Output Total Balance 450 Intake, IV 250 Intake, Oral 200 Physical Exam General Appearance: Alert, Oriented X3, Cooperative, No Acute Distress Other Physical Findings: General -well-developed, well-nourished morbidly obese woman in no acute distress HEENT - NCAT, PERRL, EOMI, anicteric sclera Cardio - S1, S2 w/o murmurs/gallops/rubs Resp -diminished airflow bilaterally without wheezing/rhonchi/crackles GI - soft, nontender, nondistended, bowel sounds present Neuro - Awake and alert, CN II - XII grossly intact Extremities - no edema, pulses intact, left below knee amputation Current Medications: Current Medications Sig/Suleman Start time Last Medication Dose Route Stop Time Status Admin Acetaminophen 650 MG Q6P PRN 10/09 2029 AC PO Acetaminophen/ 1 TAB Q6P PRN 10/09 2030 AC Hydrocodone Bitart PO Citalopram 20 MG DAILY 10/10 1000 AC 10/11 Hydrobromide PO 1131 Clindamycin 600 MG Q8 10/10 0600 DC 10/10 Dextrose/Water 50 ML IV 1314 Docusate Sodium 100 MG BID 10/10 1341 AC 10/11 PO 1131 Ergocalciferol 50,000 IU Q168 10/16 1000 AC PO Furosemide 60 MG DAILY 10/10 1000 DC 10/10 PO 1005 Guaifenesin 10 ML .STK-MED ONE 10/10 1621 DC PO 10/10 1622 Guaifenesin/ 10 ML ONCE ONE 10/10 1600 DC 10/10 Dextromethorphan PO 10/10 1601 1748 Heparin Sodium 5,000 UNIT Q8 10/09 2200 AC 10/11 (Porcine) SC 0550 Hydromorphone HCl 0.5 MG Q6-PRN PRN 10/09 2030 AC IV Insulin Aspart 0 TIDAC/HS 10/10 1200 AC 10/11 SC 0842 Insulin Detemir 45 UNITS BID 10/10 2200 AC 10/11 SC 1133 Nicotine 14 MG DAILY 10/09 2028 AC 10/11 TOP 1132 Oxycodone HCl 80 MG BID 10/11 1000 AC 10/11 PO 1132 Oxycodone HCl 80 MG Q8 10/09 2200 DC 10/10 PO 2234 Patient Medication 1 ED .STK-MED ONE 10/10 1354 DC Teaching ED 10/10 1355 Pregabalin 300 MG .STK-MED ONE 10/10 2219 DC PO 10/10 2220 Pregabalin 300 MG BID 10/09 2200 AC 10/11 PO 1132 Sodium Chloride 1,000 ML Q10H 10/10 1330 DC IV 10/10 2329 Sodium Chloride 1,000 ML Q10H 10/10 1045 DC 10/10 IV 1210 Tiotropium [place] 1 PUF DAILY 10/10 1000 AC 10/11 INH 1132 Vancomycin HCl 1,500 MG 10/10 220 DC Sodium Chloride 500 ML IV Vancomycin HCl 1,500 MG ONE ONE 10/10 1700 DC 10/10 Sodium Chloride 500 ML IV 10/10 1859 1901 Vancomycin HCl 1,500 MG ONCE ONE 10/10 1645 CAN IV 10/10 1646 Last 24 Hrs of Lab/Drew Results Last 24 Hrs of Labs/Mics: Laboratory Tests 10/11/16 0650: Anion Gap 15, Estimated GFR 10 L, BUN/Creatinine Ratio 10.5, CBC w Diff NO MAN DIFF REQ, RBC 3.02 L, MCV 93.4, MCH 31.3 H, RDW 15.5 H, MPV 6.9 L, Gran % 65.8, Lymphocytes % 20.7, Monocytes % 6.5, Eosinophils % 6.2 H, Basophils % 0.8 , Absolute Granulocytes 5.2, Absolute Lymphocytes 1.6, Absolute Monocytes 0.5, Absolute Eosinophils 0.5, Absolute Basophils 0.1, PUBS MCHC 33.4, Random Vancomycin 19.3 Microbiology 10/11 1839 LOWER RESP: Respiratory Culture - COLB 10/11 1839 LOWER RESP: Gram Stain - COLB 10/11 1443 BODY FLUID: Body Fluid Culture - COLB 10/11 1443 BODY FLUID: Gram Stain - COLB Assessment/Plan Assessment: 60-year-old woman with a history of diabetes, left leg DVT status post IVC filter, chronic kidney disease, neuropathy and peripheral vascular disease, status post left BKA and amputations of the right first and third toes, current admission for fevers chills and purulent discharge from the ulcer on her left knee stump. Found to have elevated white count and ESR, CT left leg, edema with area of fluid in the anterior aspect of the stump, suspicious for an abscess, with gas extending from the skin into the soft tissues, with no evidence of osteomyelitis. Bilateral lower extremity Dopplers were negative for right leg DVT, with poor compression and flow in the left mid and distal superficial femoral veins. Hospital day 2 Patient remains afebrile without leukocytosis while on intravenous vancomycin for suspicion of cellulitis and possible osteomyelitis. Ultrasound of the extremity demonstrated poor compressibility and low flow for which a vascular surgery consult was placed. Vascular surgeon did not feel any urgent surgical intervention was required and felt that these findings were community service representative of a chronic scarring process in the extremity. MRI of the left knee yesterday did not identify any obvious presence of osteomyelitis. Vancomycin level yesterday was subtherapeutic for which patient was given 1.5 g of intravenous antibiotic, repeat random vancomycin level this morning was within therapeutic level and will be rechecked again tomorrow. Her renal function is worse today with creatinine increasing from 3.5-4.3 for which a renal ultrasound is ordered. Novolog / Levemir doses were adjusted per endocrinology consultants recommendations. Problem list: -Cellulitis with possible osteomyelitis -Acute kidney injury on chronic kidney disease -Hypertension -Hyperlipidemia -COPD -Current every day smoker -History of left lower extremity BKA Plan: -Gen. medicine -Contact precautions -Avoid NSAIDs for AMEYA -Accucheck TIDAC/HS -Novolog/Levemir -Hold Lasix -Follow up renal ultrasound -Follow-up cultures and sensitivities -Vascular surgery consult -Endocrinology consult -Infectious disease consult -Daily CBC/BEP -Daily Vancomycing level, dose 1.5 if subtherapeutic -Pain Control -Diabetic diet -DVT prophylaxis -Full code Problem List: 1. Cellulitis Pain Ratin Pain Location: Right lower extremity Pain Goal: Pain 4 or less Pain Plan: See assessment Tomorrow's Labs & Rationales: CBC/BMP Vancomycin level ameya on CKD secondary to ATN (vancomycin induced) vs lasix will hold lasix for now. will continue to monitor Mood disorder continue celexa, diabetic diet dvt prophylaxis with sc heparin full code
--- NOTE | 2016-10-11 09:31 | PN- Att Addend ---
Attending Addendum Attending Brief Note Attending note. Patient is comfortable no major complaints. Current Medications Sig/Suleman Start time Last Medication Dose Route Stop Time Status Admin Acetaminophen 650 MG Q6P PRN 10/09 2030 AC PO Acetaminophen/ 1 TAB Q6P PRN 10/09 2030 AC Hydrocodone Bitart PO Citalopram 20 MG DAILY 10/10 1000 AC 10/10 Hydrobromide PO 1005 Clindamycin 600 MG Q8 10/10 0600 DC 10/10 Dextrose/Water 50 ML IV 1314 Dextrose/Sodium 1,000 ML Q8H 10/10 1045 CAN Chloride IV Docusate Sodium 100 MG BID 10/10 1341 AC 10/10 PO 2231 Ergocalciferol 50,000 IU Q168 10/16 1000 AC PO Furosemide 60 MG DAILY 10/10 1000 DC 10/10 PO 1005 Guaifenesin 10 ML .STK-MED ONE 10/10 1621 DC PO 10/10 1622 Guaifenesin/ 10 ML ONCE ONE 10/10 1600 DC 10/10 Dextromethorphan PO 10/10 1601 1748 Heparin Sodium 5,000 UNIT Q8 10/09 2200 AC 10/11 (Porcine) SC 0550 Hydromorphone HCl 0.5 MG Q6-PRN PRN 10/09 2029 AC IV Influenza Virus 0.5 ML 1000 10/10 1000 DC 10/10 Vaccine IM 10/10 1001 1006 Insulin Aspart 0 TIDAC/HS 10/10 1200 AC 10/11 SC 0842 Insulin Detemir 45 UNITS BID 10/10 2200 AC 10/10 SC 2234 Insulin Detemir 60 UNITS BID 10/09 2200 DC 10/10 SC 1005 Nicotine 14 MG DAILY 10/09 2028 AC 10/10 TOP 1006 Oxycodone HCl 80 MG BID 10/11 1000 AC PO Oxycodone HCl 80 MG Q8 10/09 2200 DC 10/10 PO 2234 Patient Medication 1 ED .STK-MED ONE 10/10 1354 DC Teaching ED 10/10 1355 Pregabalin 300 MG .STK-MED ONE 10/10 2219 DC PO 10/10 2220 Pregabalin 300 MG BID 10/09 2200 AC 10/10 PO 2232 Sodium Chloride 1,000 ML Q10H 10/10 1330 DC IV 10/10 2329 Sodium Chloride 1,000 ML Q10H 10/10 1045 DC 10/10 IV 1210 Tiotropium [place] 1 PUF DAILY 10/10 1000 AC 10/10 INH 1003 Vancomycin HCl 1,500 MG 10/10 220 DC Sodium Chloride 500 ML IV Vancomycin HCl 1,500 MG ONE ONE 10/10 1700 DC 10/10 Sodium Chloride 500 ML IV 10/10 1859 1901 Vancomycin HCl 1,500 MG ONCE ONE 10/10 1645 CAN IV 10/10 1646 Laboratory Tests 10/11 0650 Chemistry Sodium (137 - 145 mmol/L) 138 Potassium (3.5 - 5.1 mmol/L) 3.6 Chloride (98 - 107 mmol/L) 99 Carbon Dioxide (22 - 30 mmol/L) 24 Anion Gap (5 - 16) 15 BUN (7 - 17 mg/dL) 45 H Creatinine (0.5 - 1.0 mg/dL) 4.3 H Estimated GFR (>60 ml/min) 10 L BUN/Creatinine Ratio (7 - 25 %) 10.5 Hematology CBC w Diff NO MAN DIFF REQ WBC (4.8 - 10.8 /CUMM) 7.9 RBC (4.20 - 5.40 /CUMM) 3.02 L Hgb (12.0 - 16.0 G/DL) 9.4 L Hct (37 - 47 %) 28.2 L MCV (81.0 - 99.0 FL) 93.4 MCH (27.0 - 31.0 PG) 31.3 H RDW (11.5 - 14.5 %) 15.5 H Plt Count (130 - 400 /CUMM) 224 MPV (7.4 - 10.4 FL) 6.9 L Gran % (42.2 - 75.2 %) 65.8 Lymphocytes % (20.5 - 51.1 %) 20.7 Monocytes % (1.7 - 9.3 %) 6.5 Eosinophils % (0 - 5 %) 6.2 H Basophils % (0.0 - 2.0 %) 0.8 Absolute Granulocytes (1.4 - 6.5 /CUMM) 5.2 Absolute Lymphocytes (1.2 - 3.4 /CUMM) 1.6 Absolute Monocytes (0.10 - 0.60 /CUMM) 0.5 Absolute Eosinophils (0.0 - 0.7 /CUMM) 0.5 Absolute Basophils (0.0 - 0.2 /CUMM) 0.1 PUBS MCHC (33.0 - 37.0 G/DL) 33.4 Toxicology Random Vancomycin (ug/ml) 19.3 Microbiology Date/Time Procedure - Status Source Growth 10/10 184 Respiratory Culture - COLB LOWER RESP 10/10 184 Gram Stain - COLB LOWER RESP 10/10 1444 Body Fluid Culture - COLB BODY FLUID 10/10 1444 Gram Stain - COLB BODY FLUID Vital Signs Date Time Temp Pulse Resp B/P B/P Pulse O2 O2 Flow FiO2 Mean Ox Delivery Rate 10/11 0000 Room Air 10/10 2321 98.1 69 20 132/80 94 Room Air 10/10 1333 98.4 68 20 144/86 93 Intake & Output 10/11 1600 10/11 0800 10/11 0000 Intake Total 450 Output Total Balance 450 Intake, IV 250 Intake, Oral 200 On examination patient is awake alert. She is morbidly obese. S1-S2 is normal Lungs diminished breath sounds both bases Abdomen is soft nontender globular bowel sounds are present Left extremity she's got a below-knee prosthesis. Right leg sugar chronic skin changes with edema. Pedal pulses are diminished in the right leg. Assessment Cellulitis/questionable osteomyelitis: superficial culture culture positive for staph aureus Will follow-up MRI ID consulted appreciate recommendations Random Vanco level to be followed up this evening if less than 15 Vancomycin 1.5 g IV 1 to be given will repeat another random Vanco level and with a.m. labs tommorrow and if less than 15 will give another one time dose of 1.5g IV. tommorrow and if less than 15 will give another one time dose of 1.5g IV.
--- NOTE | 2016-10-11 11:55 | PN- Diabetes ---
Assessment/Plan Assessment: This history to-year-old woman with a known history of diabetes with severe complications to the hospital because of ulceration and infection involving her right stump. The patient has a history of COPD, low the knee amputation, and chronic kidney disease stage IV. She is currently on Levemir 45 units twice a day. Fingerstick blood sugars yesterday were 188, 196, 159 and 161. The sugars have become somewhat low today with 83 before breakfast and one 106 before lunch. Plan: Suggest reduce the patient's Levemir to 40 units twice a day. In addition we need to reduce the sliding scale. Sliding-scale NovoLog before meals should be 80-150 give 8 units NovoLog, 151-200 give 10 units NovoLog, 201-250 give 12 units NovoLog, 251-300 give 14 units NovoLog, 301-350 give 16 units NovoLog, 351 -400 give 18 units NovoLog. Bedtime sliding-scale NovoLog can stay as written.
--- NOTE | 2016-10-11 14:40 | RADIOLOGY REPORT ---
EXAMINATION: XR FOOT, RIGHT CLINICAL INFORMATION: Right foot pain and swelling COMPARISON: 09/20/2015 TECHNIQUE: Right foot, 3 views FINDINGS: No acute findings within the right foot compared to 09/20/2015. There is nonspecific soft tissue swelling of the foot. There is mild osteophyte formation at the ankle joint. No soft tissue emphysema. There is heterotopic ossification along the expected area of the anterior surface of the Achilles tendon located 5-7 cm above the level of calcaneal insertion; this could be secondary to a remote Achilles tendon tear. There is enthesophyte formation of the calcaneus. Bones have normal alignment at the Chopart and Lisfranc joints. The great toe is amputated through the distal metadiaphysis of the metatarsal. The third toe is amputated through the base of the proximal phalanx. There is an old, healed fracture of the proximal phalanx of the second toe. No acute fractures, new areas of bone resorption or periostitis. IMPRESSION: No radiographic evidence of osteomyelitis within the right foot. Nonspecific soft tissue swelling of the foot. No evidence of metatarsal fracture or acute phalangeal injury.
--- NOTE | 2016-10-11 14:53 | PN- Infect Dx ---
Subjective Subjective: Afebrile without complaints Objective Last 24 Hrs of Vital Signs/I&O Vital Signs Date Time Temp Pulse Resp B/P B/P Pulse O2 O2 Flow FiO2 Mean Ox Delivery Rate 10/11 0800 Room Air 10/11 0000 Room Air 10/10 2321 98.1 69 20 132/80 94 Room Air Intake & Output 10/11 1600 10/11 0800 10/11 0000 Intake Total 450 Output Total Balance 450 Intake, IV 250 Intake, Oral 200 Patient 268 lb Weight Physical Exam Other Physical Findings: She appears comfortable in no acute distress Lungs are clear Heart regular rhythm with no murmur Extremities left BKA stump with decreased erythema, nontender to palpation; ulcer on the lateral aspect of her left leg with packing in place, with no purulent drainage Results Last 24 Hours of Lab Results: Laboratory Tests 10/11 0650 Chemistry Sodium (137 - 145 mmol/L) 138 Potassium (3.5 - 5.1 mmol/L) 3.6 Chloride (98 - 107 mmol/L) 99 Carbon Dioxide (22 - 30 mmol/L) 24 Anion Gap (5 - 16) 15 BUN (7 - 17 mg/dL) 45 H Creatinine (0.5 - 1.0 mg/dL) 4.3 H Estimated GFR (>60 ml/min) 10 L BUN/Creatinine Ratio (7 - 25 %) 10.5 Hematology CBC w Diff NO MAN DIFF REQ WBC (4.8 - 10.8 /CUMM) 7.9 RBC (4.20 - 5.40 /CUMM) 3.02 L Hgb (12.0 - 16.0 G/DL) 9.4 L Hct (37 - 47 %) 28.2 L MCV (81.0 - 99.0 FL) 93.4 MCH (27.0 - 31.0 PG) 31.3 H RDW (11.5 - 14.5 %) 15.5 H Plt Count (130 - 400 /CUMM) 224 MPV (7.4 - 10.4 FL) 6.9 L Gran % (42.2 - 75.2 %) 65.8 Lymphocytes % (20.5 - 51.1 %) 20.7 Monocytes % (1.7 - 9.3 %) 6.5 Eosinophils % (0 - 5 %) 6.2 H Basophils % (0.0 - 2.0 %) 0.8 Absolute Granulocytes (1.4 - 6.5 /CUMM) 5.2 Absolute Lymphocytes (1.2 - 3.4 /CUMM) 1.6 Absolute Monocytes (0.10 - 0.60 /CUMM) 0.5 Absolute Eosinophils (0.0 - 0.7 /CUMM) 0.5 Absolute Basophils (0.0 - 0.2 /CUMM) 0.1 PUBS MCHC (33.0 - 37.0 G/DL) 33.4 Toxicology Random Vancomycin (ug/ml) 19.3 Last 24 Hours of Drew Results: Blood cultures 2 October 09 negative Superficial culture left leg October 09 positive for Staph aureus sensitive to Oxacillin Recent Imaging Studies: Left leg ultrasound October 11 reveals a complex area of decreased echogenicity and increased vascularity, with only minimal simple fluid, felt to represent a complex fluid collection containing primarily solid components MRI of the left leg revealed marked underlying soft tissue inflammation at the anterolateral margin of the stump, with no simple fluid collections identified; inflammation of the underlying tibialis anterior muscle and periosteum of the proximal tibia without evidence of osteomyelitis or deep abscess X-ray of the right foot October 11 no evidence of osteomyelitis Assessment/Plan Impression: Left BKA stump cellulitis, with imaging suggesting a complex fluid collection, not felt to be amenable to aspiration by IR, and with no evidence of osteomyelitis on the MRI. She should be evaluated by Vascular surgery to determine need, if any, for debridement/revision of the BKA. She remains afebrile with white blood cell count now normal on Vancomycin, but, with the superficial culture only positive for MSSA, her antibiotics can be adjusted. Her renal function continues to worsen, possibly secondary to ATN from sepsis versus medication versus another process. Suggestion: 1. Await Vascular surgery evaluation 2. Bladder scan 3. Renal evaluation 4. Renal ultrasound 5. Discontinue Vancomycin and Vancomycin levels 6. Begin Cefazolin 1 g IV every 12 hours
--- NOTE | 2016-10-11 15:02 | ULTRASOUND REPORT ---
EXAMINATION: US RETROPERITONEAL COMPLETE (RENAL) CLINICAL INFORMATION: Elevated creatinine, renal failure. COMPARISON: CT abdomen and pelvis 09/20/2015 TECHNIQUE: Real-time imaging of the kidneys and bladder. Per the technologist note, the patient was unable to position decubitus. Best obtained images. The technologist had difficulty keeping the patient awake during the course of the examination. FINDINGS: RIGHT KIDNEY: 9.9 x 5.9 x 4.2 cm (SAG x AP x TRV). The kidney is grossly normal in size, contour, and echogenicity. Renal cortical thickness is normal. No calculi or focal parenchymal lesions. No hydronephrosis. LEFT KIDNEY: 10.1 x 5.7 x 5.8 cm (SAG x AP x TRV). The kidney is grossly normal in size, contour, and echogenicity. Renal cortical thickness is normal. No calculi or focal parenchymal lesions. No hydronephrosis. BLADDER: The bladder was not visualized. IMPRESSION: Limited examination. The bladder was not visualized. No evidence for renal obstruction..
[2016-10-11 15:57] VITALS: BP 120/70
[2016-10-11 22:43] VITALS: BP 150/60
[2016-10-12 06:29] VITALS: BP 144/80
--- NOTE | 2016-10-12 08:02 | PN- Housestaff ---
Subjective Follow-up For: Cellulitis Possible Osteomyelitis Subjective: Patient seen and examined. She is seen lying upright in her bed resting comfortably. She appears to be in no acute distress. She reportes feeling well and denies any new subjective complaints. Additionally she denies any headache, fever, chills, chest pain, shortness of breath, nausea, vomiting, diarrhea. No overnight events reported. Review of Systems Constitutional: Reports: see HPI. Objective Last 24 Hrs of Vital Signs/I&O Vital Signs Date Time Temp Pulse Resp B/P B/P Pulse O2 O2 Flow FiO2 Mean Ox Delivery Rate 10/12 08 Room Air 10/12 0629 98.0 78 20 144/80 91 Room Air 10/11 2243 98.1 79 20 150/60 92 Room Air 10/11 1557 98.4 72 22 120/70 89 Intake & Output 10/12 1600 10/12 0800 10/12 0000 Intake Total 500 130 500 Output Total 600 600 Balance 500 -470 -100 Intake, IV 10 20 Intake, Oral 500 120 480 Number 1 Bowel Movements Output, Urine 600 600 Physical Exam General Appearance: Alert, Oriented X3, Cooperative, No Acute Distress Other Physical Findings: General -well-developed, well-nourished morbidly obese woman in no acute distress HEENT - NCAT, PERRL, EOMI, anicteric sclera Cardio - S1, S2 w/o murmurs/gallops/rubs Resp -diminished airflow bilaterally without wheezing/rhonchi/crackles GI - soft, nontender, nondistended, bowel sounds present Neuro - Awake and alert, CN II - XII grossly intact Extremities - no edema, pulses intact, left below knee amputation Current Medications: Current Medications Sig/Suleman Start time Last Medication Dose Route Stop Time Status Admin Acetaminophen 650 MG Q6P PRN 10/09 2029 AC PO Acetaminophen/ 1 TAB Q6P PRN 10/09 2030 AC Hydrocodone Bitart PO Cefazolin Sodium 1,000 MG Q12 10/11 2200 AC 10/12 IV 1025 Citalopram 20 MG DAILY 10/10 1000 AC 10/12 Hydrobromide PO 1024 Docusate Sodium 100 MG DAILY 10/11 1257 AC PO Docusate Sodium 100 MG BID 10/10 1341 AC 10/12 PO 1024 Ergocalciferol 50,000 IU Q168 10/16 1000 AC PO Heparin Sodium 5,000 UNIT Q8 10/09 2199 AC 10/12 (Porcine) SC 0545 Hydromorphone HCl 0.5 MG Q6-PRN PRN 10/09 2030 AC IV Insulin Aspart 0 TIDAC/HS 10/10 1200 AC 10/12 SC 0834 Insulin Detemir 40 UNITS BID 10/11 2199 AC 10/12 SC 1024 Nicotine 14 MG DAILY 10/10 2027 AC 10/12 TOP 1024 Oxycodone HCl 80 MG BID 10/11 1000 AC 10/12 PO 1023 Polyethylene Glycol 17 GM DAILY 10/11 1257 AC 10/12 PO 1025 Pregabalin 300 MG BID 10/09 2199 AC 10/12 PO 1029 Senna/Docusate Sodium 2 TAB DAILY 10/11 1257 AC 10/12 PO 1023 Tiotropium [place] 1 PUF DAILY 10/10 1000 AC 10/12 INH 1031 Last 24 Hrs of Lab/Drew Results Last 24 Hrs of Labs/Mics: Laboratory Tests 10/12/16 0747: Anion Gap 13, Estimated GFR 11 L, BUN/Creatinine Ratio 12.8, CBC w Diff NO MAN DIFF REQ, RBC 3.05 L, MCV 93.8, MCH 31.4 H, RDW 14.8 H, MPV 7.0 L, Gran % 76.1 H, Lymphocytes % 13.4 L, Monocytes % 4.7, Eosinophils % 5.4 H, Basophils % 0.4, Absolute Granulocytes 5.8, Absolute Lymphocytes 1.0 L, Absolute Monocytes 0.4, Absolute Eosinophils 0.4, Absolute Basophils 0, PUBS MCHC 33.5 Assessment/Plan Assessment: 60-year-old woman with a history of diabetes, left leg DVT status post IVC filter, chronic kidney disease, neuropathy and peripheral vascular disease, status post left BKA and amputations of the right first and third toes, current admission for fevers chills and purulent discharge from the ulcer on her left knee stump. Found to have elevated white count and ESR, CT left leg, edema with area of fluid in the anterior aspect of the stump, suspicious for an abscess, with gas extending from the skin into the soft tissues, with no evidence of osteomyelitis. Bilateral lower extremity Dopplers were negative for right leg DVT, with poor compression and flow in the left mid and distal superficial femoral veins. Hospital day 3 Patient continues to remain afebrile without leukocytosis while on intravenous antitbiotics. Patient was converted to Cefazolin from Vancomycin yesterday. Creatinine demonstrates mild improvement, nephrology consult is placed. Further vascular surgery recommendations pending. Problem list: -Cellulitis with possible osteomyelitis -Acute kidney injury on chronic kidney disease -Hypertension -Hyperlipidemia -COPD -Current every day smoker -History of left lower extremity BKA Plan: -Gen. medicine -Contact precautions -Avoid NSAIDs for AMEYA -Accucheck TIDAC/HS -Novolog/Levemir -Hold Lasix -Cefazolin 1g IV Q8H -Follow-up cultures and sensitivities -Vascular surgery consult -Endocrinology consult -Infectious disease consult -Daily CBC/BEP -Pain Control -Diabetic diet -DVT prophylaxis -Full code Problem List: 1. Cellulitis Pain Ratin Pain Location: Left lower extremity Pain Goal: Pain 4 or less Pain Plan: See assessment Tomorrow's Labs & Rationales: CBC-cellulitis BEP-ameya
[2016-10-12 09:08] LABS: ABSOLUTE BASOPHIL COUNT 0 /CUMM (0.0-0.2); ABSOLUTE EOSINOPHIL COUNT 0.4 /CUMM (0.0-0.7); ABSOLUTE GRANULOCYTE CT 5.8 /CUMM (1.4-6.5); ABSOLUTE MONOCYTE COUNT 0.4 /CUMM (0.10-0.60); BASOPHIL % 0.4 % (0.0-2.0); EOSINOPHIL % 5.4 % (0-5); GRANULOCYTE % 76.1 % (42.2-75.2); HEMATOCRIT 28.6 % (37-47); MEAN CORPUSCULAR HGB 31.4 PG (27.0-31.0); MEAN CORPUSCULAR HGB CONC 33.5 G/DL (33.0-37.0); MEAN CORPUSCULAR VOLUME 93.8 FL (81.0-99.0); PLATELET COUNT 230 /CUMM (130-400); RBC DISTRIBUTION WIDTH 14.8 % (11.5-14.5); RED BLOOD CELL CT 3.05 /CUMM (4.20-5.40); WHITE BLOOD CELL COUNT 7.7 /CUMM (4.8-10.8)
--- NOTE | 2016-10-12 09:34 | PN- Att Addend ---
Attending Addendum Attending Brief Note Covering attending note. Overall patient is fairly stable no new complaints. On examination Current Medications Sig/Suleman Start time Last Medication Dose Route Stop Time Status Admin Acetaminophen 650 MG Q6P PRN 10/09 2029 AC PO Acetaminophen/ 1 TAB Q6P PRN 10/09 2030 AC Hydrocodone Bitart PO Cefazolin Sodium 1,000 MG Q12 10/11 2200 AC 10/11 IV 2238 Citalopram 20 MG DAILY 10/10 1000 AC 10/11 Hydrobromide PO 1131 Docusate Sodium 100 MG DAILY 10/11 1257 AC PO Docusate Sodium 100 MG BID 10/10 1341 AC 10/11 PO 2240 Ergocalciferol 50,000 IU Q168 10/16 1000 AC PO Heparin Sodium 5,000 UNIT Q8 10/09 2199 AC 10/12 (Porcine) SC 0545 Hydromorphone HCl 0.5 MG Q6-PRN PRN 10/09 2029 AC IV Insulin Aspart 0 TIDAC/HS 10/10 1200 AC 10/12 SC 0834 Insulin Detemir 40 UNITS BID 10/11 2199 AC SC Insulin Detemir 45 UNITS BID 10/10 2200 DC 10/11 SC 1133 Nicotine 14 MG DAILY 10/10 2027 AC 10/11 TOP 1132 Oxycodone HCl 80 MG BID 10/11 1000 AC 10/11 PO 2240 Polyethylene Glycol 17 GM DAILY 10/11 1257 AC 10/11 PO 1511 Pregabalin 300 MG BID 10/09 2200 AC 10/11 PO 2240 Senna/Docusate Sodium 2 TAB DAILY 10/11 1257 AC 10/11 PO 1511 Tiotropium [place] 1 PUF DAILY 10/10 1000 AC 10/11 INH 1132 Vital Signs Date Time Temp Pulse Resp B/P B/P Pulse O2 O2 Flow FiO2 Mean Ox Delivery Rate 10/12 0629 98.0 78 20 144/80 91 Room Air 10/11 224 98.1 79 20 150/60 92 Room Air 10/11 1557 98.4 72 22 120/70 89 Intake & Output 10/12 1600 10/12 0800 10/12 0000 Intake Total 130 500 Output Total 600 600 Balance -470 -100 Intake, IV 10 20 Intake, Oral 120 480 Output, Urine 600 600 On examination Is awake alert oriented 3. S1-S2 is normal Lungs are clear Abdomen soft nontender obese bowel sounds are present Left below-knee prosthesis Laboratory Tests 10/12 0747 Chemistry Sodium (137 - 145 mmol/L) 137 Potassium (3.5 - 5.1 mmol/L) 3.8 Chloride (98 - 107 mmol/L) 101 Carbon Dioxide (22 - 30 mmol/L) 23 Anion Gap (5 - 16) 13 BUN (7 - 17 mg/dL) 51 H Creatinine (0.5 - 1.0 mg/dL) 4.0 H Estimated GFR (>60 ml/min) 11 L BUN/Creatinine Ratio (7 - 25 %) 12.8 Hematology CBC w Diff Pending WBC Pending RBC Pending Hgb Pending Hct Pending MCV Pending MCH Pending RDW Pending Plt Count Pending MPV Pending PUBS MCHC Pending Labs Creatinine is 4.0 is dropping from 4.3 Acute kidney injury Will obtain a renal consult Stop Lasix. Otherwise continue all the current management.
--- NOTE | 2016-10-12 10:23 | PN- Diabetes ---
Assessment/Plan Assessment: This history to-year-old woman with a known history of diabetes with severe complications to the hospital because of ulceration and infection involving her right stump. The patient has a history of COPD, below the knee amputation, and chronic kidney disease stage IV. Yesterday day we reduce the patient's insulin because of low blood sugar. She is presently on Levemir 40 units twice a day and sliding scale NovoLog starting with 8 units for a value of 80-150.. Plan: Suggest continue the same insulin. We will monitor her sugars closely today. If she has further hypoglycemia we will reduce her insulin doses further. Subjective Subjective: Feels okay. Concerned about her stump. Review of Systems Constitutional: Denies: chills, fever. Cardiovascular: Denies: chest pain. Respiratory: Denies: short of breath. Gastrointestinal: Denies: nausea, vomiting. Musculoskeletal: Denies: back pain. Skin: Reports: no symptoms (breakdown of stump.). Objective Last 24 Hrs of Vital Signs/I&O Vital Signs Date Time Temp Pulse Resp B/P B/P Pulse O2 O2 Flow FiO2 Mean Ox Delivery Rate 10/12 628 98.0 78 20 144/80 91 Room Air 10/113 98.1 79 20 150/60 92 Room Air 10/11 1557 98.4 72 22 120/70 89 Intake & Output 10/12 1600 10/12 0810/12 0000 Intake Total 130 500 Output Total 600 600 Balance -470 -100 Intake, IV 10 20 Intake, Oral 120 480 Output, Urine 600 600 Vital Signs Date Time Temp Pulse Resp B/P B/P Pulse O2 O2 Flow FiO2 Mean Ox Delivery Rate 10/12 628 98.0 78 20 144/80 91 Room Air 10/11 2242 98.1 79 20 150/60 92 Room Air 10/11 1557 98.4 72 22 120/70 89 Intake & Output 10/12 1600 10/12 0800 10/12 0000 Intake Total 130 500 Output Total 600 600 Balance -470 -100 Intake, IV 10 20 Intake, Oral 120 480 Output, Urine 600 600 Physical Exam General Appearance: well developed/nourished, alert, awake Head: normal appearance Respiratory: normal breath sounds Cardiovascular: regular rate/rhythm Extremities: normal inspection Current Medications: Current Medications Sig/Suleman Start time Last Medication Dose Route Stop Time Status Admin Acetaminophen 650 MG Q6P PRN 04/20 2030 AC PO Acetaminophen/ 1 TAB Q6P PRN 10/09 2030 AC Hydrocodone Bitart PO Cefazolin Sodium 1,000 MG Q12 10/11 2199 AC 10/12 IV 1025 Citalopram 20 MG DAILY 10/10 1000 AC 10/12 Hydrobromide PO 1024 Docusate Sodium 100 MG DAILY 10/11 1257 AC PO Docusate Sodium 100 MG BID 10/10 1341 AC 10/12 PO 1024 Ergocalciferol 50,000 IU Q168 10/16 1000 AC PO Heparin Sodium 5,000 UNIT Q8 10/09 2199 AC 10/12 (Porcine) SC 0545 Hydromorphone HCl 0.5 MG Q6-PRN PRN 10/09 2029 AC IV Insulin Aspart 0 TIDAC/HS 10/10 1200 AC 10/12 SC 0834 Insulin Detemir 40 UNITS BID 10/11 2199 AC 10/12 SC 1024 Insulin Detemir 45 UNITS BID 10/10 2200 DC 10/11 SC 1133 Nicotine 14 MG DAILY 10/10 2027 AC 10/12 TOP 1024 Oxycodone HCl 80 MG BID 10/11 1000 AC 10/12 PO 1023 Polyethylene Glycol 17 GM DAILY 10/11 1257 AC 10/12 PO 1025 Pregabalin 300 MG BID 10/09 2200 AC 10/11 PO 2240 Senna/Docusate Sodium 2 TAB DAILY 10/11 1257 AC 10/12 PO 1023 Tiotropium [place] 1 PUF DAILY 10/10 1000 AC 10/11 INH 1132
[2016-10-12 15:54] VITALS: BP 120/60
--- NOTE | 2016-10-12 16:02 | Cons- Nephrology ---
General Information and HPI Consulting Request Date of Consult: 10/12/16 Requested By: GARRET ALVAREZ MD Reason for Consult: AMEYA on CKD History of Present Illness: 60 year old female with history of DM, htn, COPD, PVD s/p left BKA. She was admitted because of infection on left stump. Patient has CKD with proteinuria, creatinine's in the high twos the last year. She state she has known about CKD but has not seen a budget analyst. On admission three days ago her creatinine was 2.8, but it nani to 4.3 over the next two days. She appears to have gotten one dose of Lasix on admission. She was not hypotensive although had septic picture with elevated WBC. She had chills but no high fever. She did not get any IV contrast or NSAIDs. Today the creatinine improved slightly to 4.0. Of note although she has history of hypertension she was not on any bp meds and specifically no ACEI or ARB. FH: negative for renal disease. Allergies/Medications Allergies: Coded Allergies: NO KNOWN ALLERGIES (09/21/15) Home Med List: Citalopram Hydrobromide (Citalopram HBr) 20 MG TABLET 1 TAB PO DAILY MENTAL HEALTH (Reported) Furosemide 40 MG TABLET 60 MG PO DAILY DIURETIC (Reported) Insulin Aspart, Recombinant (Novolog Flexpen) 100 UNIT/ML INSULN.PEN DM ( Reported) Insulin Detemir (Levemir Flextouch) 100 UNIT/ML (3 ML) INSULN.PEN 64 UNITS SC BID DM (Reported) Linagliptin (Tradjenta) 5 MG TABLET 1 TAB PO DAILY DM (Reported) Oxycodone HCl (Oxycontin) 80 MG TAB.ER.12H 1 TAB PO TID PRN PAIN (Reported) Pregabalin (Lyrica) 300 MG CAPSULE 1 CAP PO BID NERVE PAIN (Reported) Tiotropium Cheyenne (Spiriva) 18 MCG CAP.W.DEV 1 CAP INH DAILY COPD (Reported) Current Medications: Current Medications Sig/Suleman Start time Last Medication Dose Route Stop Time Status Admin Acetaminophen 650 MG Q6P PRN 10/09 2029 AC PO Acetaminophen/ 1 TAB Q6P PRN 10/09 2030 AC Hydrocodone Bitart PO Cefazolin Sodium 1,000 MG Q12 10/11 2200 AC 10/12 IV 1025 Citalopram 20 MG DAILY 10/10 1000 AC 10/12 Hydrobromide PO 1024 Docusate Sodium 100 MG DAILY 10/11 1257 AC PO Docusate Sodium 100 MG BID 10/10 1341 AC 10/12 PO 1024 Ergocalciferol 50,000 IU Q168 10/16 1000 AC PO Heparin Sodium 5,000 UNIT Q8 10/09 2200 AC 10/12 (Porcine) SC 1432 Hydromorphone HCl 0.5 MG Q6-PRN PRN 10/09 2030 AC IV Insulin Aspart 0 TIDAC/HS 10/10 1200 AC 10/12 SC 1249 Insulin Detemir 40 UNITS BID 10/11 2200 AC 10/12 SC 1024 Nicotine 14 MG DAILY 10/09 202 AC 10/12 TOP 1024 Oxycodone HCl 80 MG BID 10/11 1000 AC 10/12 PO 1023 Polyethylene Glycol 17 GM DAILY 10/11 1257 AC 10/12 PO 1025 Pregabalin 300 MG BID 10/09 2200 AC 10/12 PO 1029 Senna/Docusate Sodium 2 TAB DAILY 10/11 1257 AC 10/12 PO 1023 Tiotropium Chey[place] 1 PUF DAILY 10/10 1000 AC 10/12 INH 1031 Review of Systems Review of Systems: Negative except as note aabove. 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 Home Who Do You Live With? child Services at Home: Nursing Smoking Status: Current Everyday Smoker ETOH Use: denies use Illicit Drug Use: denies illicit drug use Functional Ability ADLs Independent: dressing, eating, toileting, bathing. Ambulation: cane IADLs Needs Assist: shopping, housework. Exam & Diagnostic Data Vital Signs and I&O Vital Signs Date Time Temp Pulse Resp B/P B/P Pulse O2 O2 Flow FiO2 Mean Ox Delivery Rate 10/12 1554 98.9 60 22 120/60 93 10/12 0800 Room Air 10/12 0629 98.0 78 20 144/80 91 Room Air 10/11 2243 98.1 79 20 150/60 92 Room Air 10/11 1557 98.4 72 22 120/70 89 Intake & Output 10/12 1600 10/12 0400 10/11 1600 10/11 0400 10/10 0400 Intake Total 830 500 633 754 9351 0 Output Total 600 600 400 Balance 230 -100 026 974 9817 0 Intake, IV 10 20 250 500 Intake, Oral 820 480 596 551 5848 0 Number 1 Bowel Movements Output, Urine 600 600 400 Patient 268 lb 268 lb Weight Weight Reported by Patient Measurement Method Physical Exam: NAD VS as above Eyes: anicteric, PERRLA Neck: no mass or thryomegaly Nodes: negative cervical, inguinal Skin: chronic venous stasis changes RLE. Lungs: decreased breath sounds, no rubs/rales, resonant to percussion CV: no rub or murmur Exts: Left BKA, 1+ chronic edema right leg Neuro: A&O, CNI, no asterixis. Results Pertinent Lab Results: Laboratory Tests 10/12 10/11 0747 0650 Chemistry Sodium (137 - 145 mmol/L) 137 138 Potassium (3.5 - 5.1 mmol/L) 3.8 3.6 Chloride (98 - 107 mmol/L) 101 99 Carbon Dioxide (22 - 30 mmol/L) 23 24 Anion Gap (5 - 16) 13 15 BUN (7 - 17 mg/dL) 51 H 45 H Creatinine (0.5 - 1.0 mg/dL) 4.0 H 4.3 H Estimated GFR (>60 ml/min) 11 L 10 L BUN/Creatinine Ratio (7 - 25 %) 12.8 10.5 Hematology CBC w Diff NO MAN DIFF REQ NO MAN DIFF REQ WBC (4.8 - 10.8 /CUMM) 7.7 7.9 RBC (4.20 - 5.40 /CUMM) 3.05 L 3.02 L Hgb (12.0 - 16.0 G/DL) 9.6 L 9.4 L Hct (37 - 47 %) 28.6 L 28.2 L MCV (81.0 - 99.0 FL) 93.8 93.4 MCH (27.0 - 31.0 PG) 31.4 H 31.3 H RDW (11.5 - 14.5 %) 14.8 H 15.5 H Plt Count (130 - 400 /CUMM) 230 224 MPV (7.4 - 10.4 FL) 7.0 L 6.9 L Gran % (42.2 - 75.2 %) 76.1 H 65.8 Lymphocytes % (20.5 - 51.1 %) 13.4 L 20.7 Monocytes % (1.7 - 9.3 %) 4.7 6.5 Eosinophils % (0 - 5 %) 5.4 H 6.2 H Basophils % (0.0 - 2.0 %) 0.4 0.8 Absolute Granulocytes (1.4 - 6.5 /CUMM) 5.8 5.2 Absolute Lymphocytes (1.2 - 3.4 /CUMM) 1.0 L 1.6 Absolute Monocytes (0.10 - 0.60 /CUMM) 0.4 0.5 Absolute Eosinophils (0.0 - 0.7 /CUMM) 0.4 0.5 Absolute Basophils (0.0 - 0.2 /CUMM) 0 0.1 PUBS MCHC (33.0 - 37.0 G/DL) 33.5 33.4 Toxicology Random Vancomycin (ug/ml) 19.3 10/10 10/10 0740 0622 Chemistry Sodium (137 - 145 mmol/L) 140 Potassium (3.5 - 5.1 mmol/L) 4.1 Chloride (98 - 107 mmol/L) 103 Carbon Dioxide (22 - 30 mmol/L) 26 Anion Gap (5 - 16) 11 BUN (7 - 17 mg/dL) 35 H Creatinine (0.5 - 1.0 mg/dL) 3.5 H Estimated GFR (>60 ml/min) 13 L BUN/Creatinine Ratio (7 - 25 %) 10.0 Coagulation PT (9.4 - 12.5 SEC) 12.8 H INR (0.90 - 1.19) 1.22 H Hematology CBC w Diff NO MAN DIFF REQ WBC (4.8 - 10.8 /CUMM) 13.0 H RBC (4.20 - 5.40 /CUMM) 3.24 L Hgb (12.0 - 16.0 G/DL) 10.3 L Hct (37 - 47 %) 30.7 L MCV (81.0 - 99.0 FL) 94.6 MCH (27.0 - 31.0 PG) 31.9 H RDW (11.5 - 14.5 %) 14.9 H Plt Count (130 - 400 /CUMM) 262 MPV (7.4 - 10.4 FL) 7.1 L Gran % (42.2 - 75.2 %) 83.8 H Lymphocytes % (20.5 - 51.1 %) 9.0 L Monocytes % (1.7 - 9.3 %) 5.6 Eosinophils % (0 - 5 %) 1.1 Basophils % (0.0 - 2.0 %) 0.5 Absolute Granulocytes (1.4 - 6.5 /CUMM) 10.9 H Absolute Lymphocytes (1.2 - 3.4 /CUMM) 1.2 Absolute Monocytes (0.10 - 0.60 /CUMM) 0.7 H Absolute Eosinophils (0.0 - 0.7 /CUMM) 0.1 Absolute Basophils (0.0 - 0.2 /CUMM) 0.1 PUBS MCHC (33.0 - 37.0 G/DL) 33.7 Toxicology Random Vancomycin (ug/ml) 13.9 Urines Urinalysis LIGHT H Urine Color (YEL,AMB,STR) YEL Urine Clarity (CLEAR) HAZY H Urine pH (5.0 - 8.0) 6.0 Ur Specific [place] (1.001 - 1.035) 1.020 Urine Protein (NEG,<30 MG/DL) >=300 H Urine Ketones (NEG) NEG Urine Nitrite (NEG) NEG Urine Bilirubin (NEG) NEG Urine Urobilinogen (0.1 - 1.0 EU/dl) 0.2 Ur Leukocyte Esterase (NEG) NEG Ur Microscopic SEDIMENT EXAMINED Urine RBC (0 - 5 /HPF) 1-3 Urine WBC (0 - 2 /HPF) 1-3 H Ur Epithelial Cells (NONE,FEW) FEW Urine Bacteria (NEG/NONE) MOD H Granular Casts (NONE /LPF) FEW H Urine Hemoglobin (NEG) SMALL H Urine Glucose (N MG/DL) 250 H 10/10 184 Chemistry Lactic Acid (0.7 - 2.1 mmol/L) 1.8 Cancelled Coagulation PT Cancelled INR Cancelled 10/09 1800 Chemistry Sodium (137 - 145 mmol/L) 139 Potassium (3.5 - 5.1 mmol/L) 4.0 Chloride (98 - 107 mmol/L) 100 Carbon Dioxide (22 - 30 mmol/L) 25 Anion Gap (5 - 16) 14 BUN (7 - 17 mg/dL) 32 H Creatinine (0.5 - 1.0 mg/dL) 2.8 H Estimated GFR (>60 ml/min) 17 L BUN/Creatinine Ratio (7 - 25 %) 11.4 Glucose (65 - 99 mg/dL) 185 H Hemoglobin A1c (4.2 - 5.8 %) 7.4 H Calcium (8.4 - 10.2 mg/dL) 9.6 Total Bilirubin (0.2 - 1.3 mg/dL) 0.5 AST (14 - 36 U/L) 18 ALT (9 - 52 U/L) 29 Alkaline Phosphatase (<127 U/L) 95 Total Protein (6.3 - 8.2 g/dL) 7.8 Albumin (3.5 - 5.0 g/dL) 3.7 Globulin (1.9 - 4.2 gm/dL) 4.1 Albumin/Globulin Ratio (1.1 - 2.2 %) 0.9 L Vitamin B12 (239 - 931 pg/mL) 267 25-OH Vitamin D Total (30 - 100 ng/ml) 5.8 L Folate (2.76 - 20.0 ng/mL) 9.4 TSH (0.270 - 4.200 uIU/mL) 1.810 Free T4 (0.78 - 2.44 ng/dL) 1.05 Hematology CBC w Diff NO MAN DIFF REQ WBC (4.8 - 10.8 /CUMM) 15.3 H RBC (4.20 - 5.40 /CUMM) 3.74 L Hgb (12.0 - 16.0 G/DL) 11.6 L Hct (37 - 47 %) 34.9 L MCV (81.0 - 99.0 FL) 93.4 MCH (27.0 - 31.0 PG) 31.1 H RDW (11.5 - 14.5 %) 14.9 H Plt Count (130 - 400 /CUMM) 311 MPV (7.4 - 10.4 FL) 6.6 L Gran % (42.2 - 75.2 %) 90.3 H Lymphocytes % (20.5 - 51.1 %) 4.4 L Monocytes % (1.7 - 9.3 %) 3.3 Eosinophils % (0 - 5 %) 1.2 Basophils % (0.0 - 2.0 %) 0.8 Absolute Granulocytes (1.4 - 6.5 /CUMM) 13.8 H Absolute Lymphocytes (1.2 - 3.4 /CUMM) 0.7 L Absolute Monocytes (0.10 - 0.60 /CUMM) 0.5 Absolute Eosinophils (0.0 - 0.7 /CUMM) 0.2 Absolute Basophils (0.0 - 0.2 /CUMM) 0.1 PUBS MCHC (33.0 - 37.0 G/DL) 33.3 ESR Westergren (0 - 20 MM) 97 H Imaging/Other Studies: Renal US today without obstruction. Assessment/Plan Assessment/Recommendations Assessment: Advanced CKD presumably from diabetic nephropathy. She has had dipstick proteinuria for some time and slowly advancing ckd. She is not on ACEI or ARB which would be indicated if she has significant proteinuria. Origin of acute deterioration in hospital may be due to some slight volume depletion in setting of sepsis. Creatinine seems to have stabilzed. Recommendations: Will order U pr/cr to document degree of proteinuria. Also needs hepatits BSAg, hepatis C ab, SPEP. Keep off diuretics for now as clearly not volume overloaded. Will follow with you.
[2016-10-12 22:53] VITALS: BP 150/80
[2016-10-13 06:50] VITALS: BP 142/64
--- NOTE | 2016-10-13 07:50 | PN- Housestaff ---
Subjective Follow-up For: Cellulitis Subjective: Seen and examined. offer no complaints. Review of Systems Constitutional: Denies: chills, diaphoresis, fever, malaise, weakness, unexplained weight loss. Cardiovascular: Denies: chest pain, edema, orthopena, palpitations, peripheral edema, syncope. Respiratory: Denies: cough, hemoptysis, orthopnea, short of breath, sputum production, stridor, wheezing. Objective Last 24 Hrs of Vital Signs/I&O Vital Signs Date Time Temp Pulse Resp B/P B/P Pulse O2 O2 Flow FiO2 Mean Ox Delivery Rate 10/13 1435 98.2 60 18 124/68 92 Room Air 10/13 0745 95 10/13 0650 98.2 60 18 142/64 965 Room Air 10/12 2253 98.0 80 20 150/80 92 Room Air 10/12 1554 98.9 60 22 120/60 93 Intake & Output 10/13 1600 10/13 0800 10/13 0000 Intake Total 490 500 Output Total 400 400 Balance -400 490 100 Intake, IV 10 20 Intake, Oral 480 480 Number 1 Bowel Movements Output, Urine 400 400 Physical Exam General Appearance: Alert, Oriented X3, Cooperative, No Acute Distress Cardiovascular: Regular Rate, Normal S1, Normal S2 Lungs: Clear to Auscultation, Normal Air Movement Abdomen: Normal Bowel Sounds, Soft Current Medications: Current Medications Sig/Suleman Start time Last Medication Dose Route Stop Time Status Admin Acetaminophen 650 MG Q6P PRN 10/09 2030 AC PO Acetaminophen/ 1 TAB Q6P PRN 10/09 2030 AC Hydrocodone Bitart PO Cefazolin Sodium 1,000 MG Q12 10/11 220 AC 10/13 IV 0905 Citalopram 20 MG DAILY 10/10 1000 AC 10/13 Hydrobromide PO 0906 Docusate Sodium 100 MG DAILY 10/11 1257 AC PO Docusate Sodium 100 MG BID 10/10 1341 AC 10/13 PO 0906 Ergocalciferol 50,000 IU Q168 10/16 1000 AC PO Heparin Sodium 5,000 UNIT Q8 10/09 220 AC 10/13 (Porcine) SC 0426 Hydromorphone HCl 0.5 MG Q6-PRN PRN 10/09 2030 AC IV Insulin Aspart 0 TIDAC/HS 10/10 1200 AC 10/13 SC 1147 Insulin Detemir 40 UNITS BID 10/11 2199 AC 10/13 SC 0907 Nicotine 14 MG DAILY 10/10 2027 AC 10/13 TOP 0907 Oxycodone HCl 80 MG BID 10/11 1000 AC 10/13 PO 0906 Patient Medication 1 ED .STK-MED ONE 10/13 1347 HI Teaching ED 10/13 1348 Polyethylene Glycol 17 GM DAILY 10/11 1257 AC 10/12 PO 1025 Pregabalin 300 MG BID 10/090 AC 10/13 PO 0906 Senna/Docusate Sodium 2 TAB DAILY 10/11 1257 AC 10/13 PO 0906 Tiotropium Arrey 1 PUF DAILY 10/10 1000 AC 10/13 INH 0906 Last 24 Hrs of Lab/Drew Results Last 24 Hrs of Labs/Mics: Laboratory Tests 10/13/16 0620: Anion Gap 14, Estimated GFR 13 L, BUN/Creatinine Ratio 13.9 10/13/16 0620: Prot Electrophoresis Pending, Total Protein (PEP) Pending, Albumin % (PEP) Pending, Igyhz-6-Cybbpynsw Pending, Zwamf-4-Mppgupkiq Pending, Omya-2-Odqtoaqm Pending, Xnak-0-Gkjpsowa Pending, Gamma Globulins Pending, Abnorm Protein Band 1 Pending, Abnorm Protein Band 2 Pending, Abnorm Protein Band 3 Pending, CBC w Diff NO MAN DIFF REQ, RBC 3.24 L, MCV 93.4, MCH 31.5 H, RDW 14.7 H, MPV 7.1 L, Gran % 70.7, Lymphocytes % 16.1 L, Monocytes % 6.3, Eosinophils % 6.2 H, Basophils % 0.7, Absolute Granulocytes 5.1, Absolute Lymphocytes 1.2, Absolute Monocytes 0.4, Absolute Eosinophils 0.4, Absolute Basophils 0, PUBS MCHC 33.7, Hep Bs Antigen NONREACTIVE, Hepatitis C Antibody NONREACTIVE 10/13/16 0600: Ur Random Creatinine Cancelled, U Random Total Protein Cancelled Assessment/Plan Assessment: 60-year-old woman with a history of diabetes, left leg DVT status post IVC filter, chronic kidney disease, neuropathy and peripheral vascular disease, status post left BKA and amputations of the right first and third toes, current admission for fevers chills and purulent discharge from the ulcer on her left knee stump. Found to have elevated white count and ESR, CT left leg, edema with area of fluid in the anterior aspect of the stump, suspicious for an abscess, with gas extending from the skin into the soft tissues, with no evidence of osteomyelitis. Bilateral lower extremity Dopplers were negative for right leg DVT, with poor compression and flow in the left mid and distal superficial femoral veins. Hospital day 4 continues to remain afebrile without leukocytosis. US shows Complex area of decreased echogenicity and increased vascularity with only minimal simple fluid in the region of the left knee (amputation site), likely represents a complex fluid collection. Knee MRI shows inflammation of the underlying tibialis anterior muscle and periosteum of the proximal tibia without evidence of osteomyelitis or deep abscess. Problem list: -Cellulitis -Acute kidney injury on chronic kidney disease -Hypertension -Hyperlipidemia -COPD -Current every day smoker -History of left lower extremity BKA Plan: -Gen. medicine -Avoid NSAIDs for AMEYA -Continue Accucheck TIDAC/HS -Novolog/Levemir -continue to hold Lasix --Infectious disease on board appreciate recomendations, continue Cefazolin 1g IV Q8H -Follow-up cultures and sensitivities -Vascular surgery contacted regarding possible wound exploration and stump revision. -Endocrinology on board, appreciated recomendations -Pain Control -Diabetic diet -DVT prophylaxis -Full code Problem List: 1. Cellulitis 2. Diabetes mellitus type 2 Pain Ratin Pain Location: na Pain Goal: Pain 4 or less Pain Plan: current plan Tomorrow's Labs & Rationales: cbc
[2016-10-13 08:03] LABS: ABSOLUTE BASOPHIL COUNT 0 /CUMM (0.0-0.2); ABSOLUTE EOSINOPHIL COUNT 0.4 /CUMM (0.0-0.7); ABSOLUTE GRANULOCYTE CT 5.1 /CUMM (1.4-6.5); ABSOLUTE LYMPH COUNT 1.2 /CUMM (1.2-3.4); ABSOLUTE MONOCYTE COUNT 0.4 /CUMM (0.10-0.60); BASOPHIL % 0.7 % (0.0-2.0); EOSINOPHIL % 6.2 % (0-5); GRANULOCYTE % 70.7 % (42.2-75.2); HEMATOCRIT 30.2 % (37-47); MEAN CORPUSCULAR HGB 31.5 PG (27.0-31.0); MEAN CORPUSCULAR HGB CONC 33.7 G/DL (33.0-37.0); MEAN CORPUSCULAR VOLUME 93.4 FL (81.0-99.0); MEAN PLATELET VOLUME 7.1 FL (7.4-10.4); PLATELET COUNT 256 /CUMM (130-400); RBC DISTRIBUTION WIDTH 14.7 % (11.5-14.5); RED BLOOD CELL CT 3.24 /CUMM (4.20-5.40); WHITE BLOOD CELL COUNT 7.2 /CUMM (4.8-10.8)
--- NOTE | 2016-10-13 08:24 | PN- Diabetes ---
Assessment/Plan Assessment: 60-year-old woman with a known history of diabetes with severe complications to the hospital because of ulceration and infection involving her right stump. The patient has a history of COPD, below the knee amputation, and chronic kidney disease stage IV. She is presently on Levemir 40 units twice a day and sliding scale NovoLog starting with 8 units for a value of 80-150. Her FSGs were 144, 216, 235, 152 and 103. Plan: 1. continue the current insulin regimen; 2. monitor FSGs; will follow. Subjective Subjective: She feels okay this morning. Objective Last 24 Hrs of Vital Signs/I&O Vital Signs Date Time Temp Pulse Resp B/P B/P Pulse O2 O2 Flow FiO2 Mean Ox Delivery Rate 10/13 0745 95 10/13 0650 98.2 60 18 142/64 965 Room Air 10/12 2253 98.0 80 20 150/80 92 Room Air 10/12 1554 98.9 60 22 120/60 93 Intake & Output 10/13 1600 10/13 0800 10/13 0000 Intake Total 490 500 Output Total 400 Balance 490 100 Intake, IV 10 20 Intake, Oral 480 480 Number 1 Bowel Movements Output, Urine 400 Findings Pertinent Lab/Drew Results: Laboratory Tests 10/13 10/13 0620 0620 Chemistry Sodium Pending Potassium Pending Chloride Pending Carbon Dioxide Pending Anion Gap Pending BUN Pending Creatinine Pending BUN/Creatinine Ratio Pending Prot Electrophoresis Pending Total Protein (PEP) Pending Albumin % (PEP) Pending Jjtkt-8-Hmpoffzaw Pending Ugxdb-4-Mwqsrzmin Pending Deyi-5-Ilwzpmse Pending Hlum-2-Nkjmuboj Pending Gamma Globulins Pending Abnorm Protein Band 1 Pending Abnorm Protein Band 2 Pending Abnorm Protein Band 3 Pending Hematology CBC w Diff NO MAN DIFF REQ WBC (4.8 - 10.8 /CUMM) 7.2 RBC (4.20 - 5.40 /CUMM) 3.24 L Hgb (12.0 - 16.0 G/DL) 10.2 L Hct (37 - 47 %) 30.2 L MCV (81.0 - 99.0 FL) 93.4 MCH (27.0 - 31.0 PG) 31.5 H RDW (11.5 - 14.5 %) 14.7 H Plt Count (130 - 400 /CUMM) 256 MPV (7.4 - 10.4 FL) 7.1 L Gran % (42.2 - 75.2 %) 70.7 Lymphocytes % (20.5 - 51.1 %) 16.1 L Monocytes % (1.7 - 9.3 %) 6.3 Eosinophils % (0 - 5 %) 6.2 H Basophils % (0.0 - 2.0 %) 0.7 Absolute Granulocytes (1.4 - 6.5 /CUMM) 5.1 Absolute Lymphocytes (1.2 - 3.4 /CUMM) 1.2 Absolute Monocytes (0.10 - 0.60 /CUMM) 0.4 Absolute Eosinophils (0.0 - 0.7 /CUMM) 0.4 Absolute Basophils (0.0 - 0.2 /CUMM) 0 PUBS MCHC (33.0 - 37.0 G/DL) 33.7 Serology Hep Bs Antigen Pending Hepatitis C Antibody Pending
--- NOTE | 2016-10-13 14:33 | PN- Infect Dx ---
Subjective Subjective: Afebrile without new complaints Objective Last 24 Hrs of Vital Signs/I&O Vital Signs Date Time Temp Pulse Resp B/P B/P Pulse O2 O2 Flow FiO2 Mean Ox Delivery Rate 10/13 0745 95 10/13 0650 98.2 60 18 142/64 965 Room Air 10/12 2253 98.0 80 20 150/80 92 Room Air 10/12 1554 98.9 60 22 120/60 93 Intake & Output 10/13 1600 10/13 0800 10/13 0000 Intake Total 490 500 Output Total 400 Balance 490 100 Intake, IV 10 20 Intake, Oral 480 480 Number 1 Bowel Movements Output, Urine 400 Physical Exam Other Physical Findings: She appears comfortable in no acute distress Extremities left BKA stump prosthesis in place Results Last 24 Hours of Lab Results: Laboratory Tests 10/13 10/13 10/13 0620 0620 0600 Chemistry Sodium (137 - 145 mmol/L) 142 Potassium (3.5 - 5.1 mmol/L) 3.9 Chloride (98 - 107 mmol/L) 105 Carbon Dioxide (22 - 30 mmol/L) 23 Anion Gap (5 - 16) 14 BUN (7 - 17 mg/dL) 50 H Creatinine (0.5 - 1.0 mg/dL) 3.6 H Estimated GFR (>60 ml/min) 13 L BUN/Creatinine Ratio (7 - 25 %) 13.9 Prot Electrophoresis Pending Total Protein (PEP) Pending Albumin % (PEP) Pending Eiezn-3-Hjwwprthg Pending Hfzmf-3-Dqbdtlloe Pending Znos-4-Fttwawqr Pending Jmoz-8-Vuwgggtn Pending Gamma Globulins Pending Abnorm Protein Band 1 Pending Abnorm Protein Band 2 Pending Abnorm Protein Band 3 Pending Hematology CBC w Diff NO MAN DIFF REQ WBC (4.8 - 10.8 /CUMM) 7.2 RBC (4.20 - 5.40 /CUMM) 3.24 L Hgb (12.0 - 16.0 G/DL) 10.2 L Hct (37 - 47 %) 30.2 L MCV (81.0 - 99.0 FL) 93.4 MCH (27.0 - 31.0 PG) 31.5 H RDW (11.5 - 14.5 %) 14.7 H Plt Count (130 - 400 /CUMM) 256 MPV (7.4 - 10.4 FL) 7.1 L Gran % (42.2 - 75.2 %) 70.7 Lymphocytes % (20.5 - 51.1 %) 16.1 L Monocytes % (1.7 - 9.3 %) 6.3 Eosinophils % (0 - 5 %) 6.2 H Basophils % (0.0 - 2.0 %) 0.7 Absolute Granulocytes (1.4 - 6.5 /CUMM) 5.1 Absolute Lymphocytes (1.2 - 3.4 /CUMM) 1.2 Absolute Monocytes (0.10 - 0.60 /CUMM) 0.4 Absolute Eosinophils (0.0 - 0.7 /CUMM) 0.4 Absolute Basophils (0.0 - 0.2 /CUMM) 0 PUBS MCHC (33.0 - 37.0 G/DL) 33.7 Serology Hep Bs Antigen (NONREACTIVE) NONREACTIVE Hepatitis C Antibody (NONREACTIVE) NONREACTIVE Urines Ur Random Creatinine Cancelled U Random Total Protein Cancelled Last 24 Hours of Drew Results: Blood cultures October 09 negative Assessment/Plan Impression: Left BKA stump cellulitis, with temperatures and white blood cell count normal now on Cefazolin Day 4 of treatment, with imaging suggesting a complex fluid collection, not felt to be amenable to aspiration by IR, but with no evidence of osteomyelitis on the MRI. She does have packing in place which may account for some of the findings on the recent imaging studies. She needs to be evaluated by Vascular surgery to determine need for possible debridement/revision of the BKA. Her renal function appears to be improving and suspect that her worsening renal failure was secondary to sepsis. Suggestion: 1. Await Vascular surgery evaluation 2. Continue Cefazolin pending above
[2016-10-13 14:35] VITALS: BP 124/68
--- NOTE | 2016-10-13 14:39 | NUR ---
wound care: dr holt made aware of need to assess pt as wcc consult pending
--- NOTE | 2016-10-13 14:43 | Cons- Wound Care ---
General Information and HPI Consulting Request Date of Consult: 10/13/16 Requested By: GARRET ALVAREZ MD Reason for Consult: Chronic left stump ulcer present on admission History of Present Illness: . 60-year-old poorly controlled diabetic actively smoking status post left BKA years ago was admitted because of a chronic nonhealing ulcer of the left stump of approximately 2 months duration. Patient was admitted with concerns over possible abscess and osteomyelitis. Sedimentation rate was elevated at 97 and ultrasound to just a possible collection of this was not confirmed on MRI no was there evidence of osteomyelitis. Cultures have grown out MSSA now on Ancef Allergies/Medications Allergies: Coded Allergies: NO KNOWN ALLERGIES (09/21/15) Home Med List: Citalopram Hydrobromide (Citalopram HBr) 20 MG TABLET 1 TAB PO DAILY MENTAL HEALTH (Reported) Furosemide 40 MG TABLET 60 MG PO DAILY DIURETIC (Reported) Insulin Aspart, Recombinant (Novolog Flexpen) 100 UNIT/ML INSULN.PEN DM ( Reported) Insulin Detemir (Levemir Flextouch) 100 UNIT/ML (3 ML) INSULN.PEN 64 UNITS SC BID DM (Reported) Linagliptin (Tradjenta) 5 MG TABLET 1 TAB PO DAILY DM (Reported) Oxycodone HCl (Oxycontin) 80 MG TAB.ER.12H 1 TAB PO TID PRN PAIN (Reported) Pregabalin (Lyrica) 300 MG CAPSULE 1 CAP PO BID NERVE PAIN (Reported) Tiotropium [place] (Spiriva) 18 MCG CAP.W.DEV 1 CAP INH DAILY COPD (Reported) Review of Systems Review of Systems: Patient has been persistently using her prosthesis despite her ulcer Past History Travel History Traveled to [place] past 21 day No Medical History Blood Transfusion Hx: No Neurological: NONE EENT: NONE Cardiovascular: hypertension, hyperlipidemia Respiratory: COPD Gastrointestinal: NONE Hepatic: NONE Renal: chronic kidney disease Psychiatric: depression Endocrine: diabetes Blood Disorders: NONE 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 Home Who Do You Live With? child Services at Home: Nursing Smoking Status: Current Everyday Smoker ETOH Use: denies use Illicit Drug Use: denies illicit drug use Functional Ability ADLs Independent: dressing, eating, toileting, bathing. Ambulation: cane IADLs Needs Assist: shopping, housework. Exam & Diagnostic Data Vital Signs and I&O Vital Signs Result Date Time Pulse Ox 92 10/13 1435 B/P 124/68 10/13 1435 O2 Delivery Room Air 10/13 1435 Temp 98.2 10/13 1435 Pulse 60 10/13 1435 Resp 18 10/13 1435 O2 Flow Rate 2.0L 10/09 1907 Intake & Output 10/13 0000 10/12 1600 10/12 0800 Intake Total 500 2100 130 Output Total 400 800 600 Balance 100 1300 -470 Intake, IV 20 10 Intake, Oral 480 2100 120 Number 1 3 Bowel Movements Output, Urine 400 800 600 Exam of the left stump shows there to be excellent capillary refill. Over the lower lateral stump is a approximately 2.5 x 1.5 cm stage IV ulcer with what appears to be 2 areas of sinus tracking. There is no significant periwound erythema or induration odor or drainage. There is red and yellow fill Assessment/Plan Impression/Plan: 60-year-old diabetic poorly controlled actively smoking admitted with what appears to be a stage IV pressure ulcer of her left stump present on admission. The depth of her sinus tracking is difficult to ascertain as well as there is slough present within the wound. I suspect her wound will need to be explored and her stump revised. Vascular surgery and/or plastic surgery should be consulted regarding wound exploration and stump revision. For now continue Aquacel Ag and offloading. I've encouraged her to avoid using her artificial leg. Complete course of antibiotics per infectious disease Consult Acknowledgment - Thank you for your consult request.
--- NOTE | 2016-10-13 17:09 | PN- Vascular Surgery ---
Subjective Subjective: Patient seen. Doing well. significant complaints. Denies any significant pain in the left leg amputation site. She has a chronic wound along the left below-knee amputation stump for the past 2 months. Patient had a CT scan showing no erosive changes of the bone, but there along the soft tissue. Review of Systems Constitutional: Denies: no symptoms. Cardiovascular: Denies: chest pain. Respiratory: Denies: short of breath. Gastrointestinal: Denies: abdominal pain. Musculoskeletal: Denies: back pain. Objective Vital Signs and I&Os Vital Signs Date Time Temp Pulse Resp B/P B/P Pulse O2 O2 Flow FiO2 Mean Ox Delivery Rate 10/13 1435 98.2 60 18 124/68 92 Room Air 10/13 0745 95 10/13 0650 98.2 60 18 142/64 965 Room Air 10/12 2253 98.0 80 20 150/80 92 Room Air Intake & Output 10/13 1600 10/13 0800 10/13 0000 10/12 1600 10/12 0800 10/12 0000 Intake Total 1530 827 199 4491 130 500 Output Total 400 400 800 600 600 Balance 1130 634 605 3780 -470 -100 Intake, IV 30 10 20 10 20 Intake, Oral 1500 118 685 6063 120 480 Number 0 1 3 Bowel Movements Output, Urine 400 400 800 600 600 Physical Exam General Appearance: well developed/nourished, no apparent distress, alert, awake Head: atraumatic, normal appearance Respiratory: normal breath sounds Cardiovascular: regular rate/rhythm Extremities: left lower extremity: Anterior lateral aspect of BKA stump with small wound, mild fibrinous exudate over granulation tissue. No significant erythema. No crepitus. No purulent drainage. Assessment/Plan Assessment/Plan Left leg cellulitis. Recent drainage from left BKA stump. No obvious bone exposed, and CT scan does not show any obvious osteomyelitis. Suspect care is from the open wound with tracking, as there is no results have evidence of crepitus nor gangrene fortunately. Continue local wound care and antibiotics. After the infection resolves, can consider revision of BKA stump if wound is persistently nonhealing. Follow-up with vascular surgery as outpatient. Problem List: 1. Cellulitis Core Measures/Miscellaneous Venous Thromboembolism VTE Risk Factors: Immobility, paresis VTE Contraindications: No Contraindications VTE Diagnosis: No VTE Type: NONE VTE Confirmed by (Test): NONE Beta Tawana Is Beta Tawana a Home Med? No Antibiotics Is Patient on Antibiotics? Yes
--- NOTE | 2016-10-13 20:46 | PN- Att Addend ---
Attending Addendum Attending Brief Note Patient feeling better. She is a febrile vital signs are stable kidney function seems to be close to baseline appreciate endocrine nephrology surgery inputs and recommendations continue monitoring her labs continue IV antibiotics. Surgery check the patient again see if she needs any more drainage 24 TOTALS 10/13 0000 10/12 0000 Intake Total 2730 1100 Output Total 1800 1000 Balance 930 100 Intake, IV 30 20 Intake, Oral 2700 1080 Number 4 Bowel Movements Output, Urine 1800 1000 Patient 268 lb Weight Current Medications Sig/Suleman Start time Last Medication Dose Route Stop Time Status Admin Acetaminophen 650 MG Q6P PRN 10/09 2030 AC PO Acetaminophen/ 1 TAB Q6P PRN 10/09 2029 AC Hydrocodone Bitart PO Cefazolin Sodium 1,000 MG Q12 10/11 2199 AC 10/13 IV 0905 Citalopram 20 MG DAILY 10/10 1000 AC 10/13 Hydrobromide PO 0906 Docusate Sodium 100 MG DAILY 10/11 1257 AC PO Docusate Sodium 100 MG BID 10/10 1341 AC 10/13 PO 0906 Ergocalciferol 50,000 IU Q168 10/16 1000 AC PO Heparin Sodium 5,000 UNIT Q8 10/09 2199 AC 10/13 (Porcine) SC 0426 Hydromorphone HCl 0.5 MG Q6-PRN PRN 10/09 2030 AC IV Insulin Aspart 0 TIDAC/HS 10/10 1200 AC 10/13 SC 1715 Insulin Detemir 40 UNITS BID 10/11 2199 AC 10/13 SC 0907 Nicotine 14 MG DAILY 10/09 2028 AC 10/13 TOP 0907 Oxycodone HCl 80 MG BID 10/11 1000 AC 10/13 PO 0906 Patient Medication 1 ED .STK-MED ONE 10/13 1347 [facility] Teaching ED 10/13 1348 Polyethylene Glycol 17 GM DAILY 10/11 1257 AC 10/12 PO 1025 Pregabalin 300 MG BID 10/09 2200 AC 10/13 PO 0906 Senna/Docusate Sodium 2 TAB DAILY 10/11 1257 AC 10/13 PO 0906 Tiotropium [place] 1 PUF DAILY 10/10 1000 AC 10/13 INH 0906 Laboratory Tests 10/13/16 0620: Anion Gap 14, Estimated GFR 13 L, BUN/Creatinine Ratio 13.9 10/13/16 0620: Prot Electrophoresis Pending, Total Protein (PEP) Pending, Albumin % (PEP) Pending, Szlyp-4-Rkwuexmtc Pending, Iffhk-1-Ebnlsdgcy Pending, Owxw-4-Wnnatrkj Pending, Nprr-0-Qtzdaxxx Pending, Gamma Globulins Pending, Abnorm Protein Band 1 Pending, Abnorm Protein Band 2 Pending, Abnorm Protein Band 3 Pending, CBC w Diff NO MAN DIFF REQ, RBC 3.24 L, MCV 93.4, MCH 31.5 H, RDW 14.7 H, MPV 7.1 L, Gran % 70.7, Lymphocytes % 16.1 L, Monocytes % 6.3, Eosinophils % 6.2 H, Basophils % 0.7, Absolute Granulocytes 5.1, Absolute Lymphocytes 1.2, Absolute Monocytes 0.4, Absolute Eosinophils 0.4, Absolute Basophils 0, PUBS MCHC 33.7, Hep Bs Antigen NONREACTIVE, Hepatitis C Antibody NONREACTIVE 10/13/16 0600: Ur Random Creatinine Cancelled, U Random Total Protein Cancelled 10/12/16 0747: Anion Gap 13, Estimated GFR 11 L, BUN/Creatinine Ratio 12.8, CBC w Diff NO MAN DIFF REQ, RBC 3.05 L, MCV 93.8, MCH 31.4 H, RDW 14.8 H, MPV 7.0 L, Gran % 76.1 H, Lymphocytes % 13.4 L, Monocytes % 4.7, Eosinophils % 5.4 H, Basophils % 0.4, Absolute Granulocytes 5.8, Absolute Lymphocytes 1.0 L, Absolute Monocytes 0.4, Absolute Eosinophils 0.4, Absolute Basophils 0, PUBS MCHC 33.5 10/11/16 0650: Anion Gap 15, Estimated GFR 10 L, BUN/Creatinine Ratio 10.5, CBC w Diff NO MAN DIFF REQ, RBC 3.02 L, MCV 93.4, MCH 31.3 H, RDW 15.5 H, MPV 6.9 L, Gran % 65.8, Lymphocytes % 20.7, Monocytes % 6.5, Eosinophils % 6.2 H, Basophils % 0.8 , Absolute Granulocytes 5.2, Absolute Lymphocytes 1.6, Absolute Monocytes 0.5, Absolute Eosinophils 0.5, Absolute Basophils 0.1, PUBS MCHC 33.4, Random Vancomycin 19.3
[2016-10-13 21:54] VITALS: BP 140/70
[2016-10-14 06:00] VITALS: BP 138/70
--- NOTE | 2016-10-14 08:18 | PN- Diabetes ---
Assessment/Plan Assessment: 60-year-old woman with a known history of diabetes with severe complications to the hospital because of ulceration and infection involving her right stump. The patient has a history of COPD, below the knee amputation, and chronic kidney disease stage IV. She is presently on Levemir 40 units twice a day and sliding scale NovoLog starting with 8 units for a value of 80-150. Her FSGs [id number], 142, 141, 162 and 105. Plan: continue the current insulin regimen for now. monitor FSGs. will follow. Subjective Subjective: she has no special complaints this morning. Objective Last 24 Hrs of Vital Signs/I&O Vital Signs Date Time Temp Pulse Resp B/P B/P Pulse O2 O2 Flow FiO2 Mean Ox Delivery Rate 10/14 0600 97.7 58 20 138/70 91 Room Air 10/13 2154 97.7 54 20 140/70 95 Room Air 10/13 1435 98.2 60 18 124/68 92 Room Air Intake & Output 10/14 1600 10/14 0800 10/14 0000 Intake Total 100 800 Output Total 950 700 Balance -850 100 Intake, IV 0 Intake, Oral 100 800 Number 0 Bowel Movements Output, Urine 950 700
--- NOTE | 2016-10-14 09:55 | PN- Nephrology ---
Assessment/Plan Assessment: CKD probably from diabetes SPEP, Up/c pending. Suggestion: Keep off diuretics for now. Subjective Subjective: Patient with no new complaints. HBSAg neg as was HCAb. U pr/cr ratio not back. Creatinine down to 3.6. Objective Vital Signs and I&Os Vital Signs Date Time Temp Pulse Resp B/P B/P Pulse O2 O2 Flow FiO2 Mean Ox Delivery Rate 10/14 0600 97.7 58 20 138/70 91 Room Air 10/14 0000 95 Room Air 10/13 2154 97.7 54 20 140/70 95 Room Air 10/13 1435 98.2 60 18 124/68 92 Room Air Intake & Output 10/14 1600 10/14 0400 10/13 1600 10/13 0400 10/12 1600 10/12 0400 Intake Total 161 538 7390 500 2230 500 Output Total 950 700 543 800 0061 600 Balance -682 545 0582 100 830 -100 Intake, IV 0 40 20 10 20 Intake, Oral 347 563 1052 480 2220 480 Number 0 0 1 3 Bowel Movements Output, Urine 950 700 609 971 6646 600 Physical Exam: NAD VS as above Lungs: clear CV: no rub Abd:non-tender Exts: chronic edema R leg Neuro: A&O Current Medications: Current Medications Sig/Suleman Start time Last Medication Dose Route Stop Time Status Admin Acetaminophen 650 MG Q6P PRN 10/09 2029 AC PO Acetaminophen/ 1 TAB Q6P PRN 10/09 2029 AC Hydrocodone Bitart PO Cefazolin Sodium 1,000 MG Q12 10/11 2199 AC 10/13 IV 2105 Citalopram 20 MG DAILY 10/10 1000 AC 10/13 Hydrobromide PO 0906 Docusate Sodium 100 MG DAILY 10/11 1257 AC PO Docusate Sodium 100 MG BID 10/10 1341 AC 10/13 PO 2105 Ergocalciferol 50,000 IU Q168 10/16 1000 AC PO Heparin Sodium 5,000 UNIT Q8 10/09 2199 AC 10/13 (Porcine) SC 0426 Hydromorphone HCl 0.5 MG Q6-PRN PRN 10/09 2030 AC IV Insulin Aspart 0 TIDAC/HS 10/10 1200 AC 10/14 SC 0816 Insulin Detemir 40 UNITS BID 10/11 220 AC 10/13 SC 2105 Nicotine 14 MG DAILY 10/10 2027 AC 10/13 TOP 0907 Oxycodone HCl 80 MG BID 10/11 1000 AC 10/13 PO 2105 Patient Medication 1 ED .STK-MED ONE 10/13 1347 [place] Teaching ED 10/13 1348 Polyethylene Glycol 17 GM DAILY 10/11 1257 AC 10/12 PO 1025 Pregabalin 300 MG BID 10/09 2200 AC 10/13 PO 2105 Senna/Docusate Sodium 2 TAB DAILY 10/11 1257 AC 10/13 PO 0906 Tiotropium [place] 1 PUF DAILY 10/10 1000 AC 10/13 INH 0906 Results Pertinent Lab Results: Laboratory Tests 10/13 10/13 10/13 0620 0620 0600 Chemistry Sodium (137 - 145 mmol/L) 142 Potassium (3.5 - 5.1 mmol/L) 3.9 Chloride (98 - 107 mmol/L) 105 Carbon Dioxide (22 - 30 mmol/L) 23 Anion Gap (5 - 16) 14 BUN (7 - 17 mg/dL) 50 H Creatinine (0.5 - 1.0 mg/dL) 3.6 H Estimated GFR (>60 ml/min) 13 L BUN/Creatinine Ratio (7 - 25 %) 13.9 Prot Electrophoresis Pending Total Protein (PEP) Pending Albumin % (PEP) Pending Wlodn-3-Lfwvbygis Pending Chbwd-5-Npxtfqzno Pending Sxcn-8-Nzsnggll Pending Kkws-9-Msduhxrh Pending Gamma Globulins Pending Abnorm Protein Band 1 Pending Abnorm Protein Band 2 Pending Abnorm Protein Band 3 Pending Hematology CBC w Diff NO MAN DIFF REQ WBC (4.8 - 10.8 /CUMM) 7.2 RBC (4.20 - 5.40 /CUMM) 3.24 L Hgb (12.0 - 16.0 G/DL) 10.2 L Hct (37 - 47 %) 30.2 L MCV (81.0 - 99.0 FL) 93.4 MCH (27.0 - 31.0 PG) 31.5 H RDW (11.5 - 14.5 %) 14.7 H Plt Count (130 - 400 /CUMM) 256 MPV (7.4 - 10.4 FL) 7.1 L Gran % (42.2 - 75.2 %) 70.7 Lymphocytes % (20.5 - 51.1 %) 16.1 L Monocytes % (1.7 - 9.3 %) 6.3 Eosinophils % (0 - 5 %) 6.2 H Basophils % (0.0 - 2.0 %) 0.7 Absolute Granulocytes (1.4 - 6.5 /CUMM) 5.1 Absolute Lymphocytes (1.2 - 3.4 /CUMM) 1.2 Absolute Monocytes (0.10 - 0.60 /CUMM) 0.4 Absolute Eosinophils (0.0 - 0.7 /CUMM) 0.4 Absolute Basophils (0.0 - 0.2 /CUMM) 0 PUBS MCHC (33.0 - 37.0 G/DL) 33.7 Serology Hep Bs Antigen (NONREACTIVE) NONREACTIVE Hepatitis C Antibody (NONREACTIVE) NONREACTIVE Urines Ur Random Creatinine Cancelled U Random Total Protein Cancelled 10/12 0747 Chemistry Sodium (137 - 145 mmol/L) 137 Potassium (3.5 - 5.1 mmol/L) 3.8 Chloride (98 - 107 mmol/L) 101 Carbon Dioxide (22 - 30 mmol/L) 23 Anion Gap (5 - 16) 13 BUN (7 - 17 mg/dL) 51 H Creatinine (0.5 - 1.0 mg/dL) 4.0 H Estimated GFR (>60 ml/min) 11 L BUN/Creatinine Ratio (7 - 25 %) 12.8 Hematology CBC w Diff NO MAN DIFF REQ WBC (4.8 - 10.8 /CUMM) 7.7 RBC (4.20 - 5.40 /CUMM) 3.05 L Hgb (12.0 - 16.0 G/DL) 9.6 L Hct (37 - 47 %) 28.6 L MCV (81.0 - 99.0 FL) 93.8 MCH (27.0 - 31.0 PG) 31.4 H RDW (11.5 - 14.5 %) 14.8 H Plt Count (130 - 400 /CUMM) 230 MPV (7.4 - 10.4 FL) 7.0 L Gran % (42.2 - 75.2 %) 76.1 H Lymphocytes % (20.5 - 51.1 %) 13.4 L Monocytes % (1.7 - 9.3 %) 4.7 Eosinophils % (0 - 5 %) 5.4 H Basophils % (0.0 - 2.0 %) 0.4 Absolute Granulocytes (1.4 - 6.5 /CUMM) 5.8 Absolute Lymphocytes (1.2 - 3.4 /CUMM) 1.0 L Absolute Monocytes (0.10 - 0.60 /CUMM) 0.4 Absolute Eosinophils (0.0 - 0.7 /CUMM) 0.4 Absolute Basophils (0.0 - 0.2 /CUMM) 0 PUBS MCHC (33.0 - 37.0 G/DL) 33.5
--- NOTE | 2016-10-14 11:51 | PN- Infect Dx ---
Subjective Subjective: Afebrile. She still reports some discomfort in the left leg but notes overall improvement. Objective Last 24 Hrs of Vital Signs/I&O Vital Signs Date Time Temp Pulse Resp B/P B/P Pulse O2 O2 Flow FiO2 Mean Ox Delivery Rate 10/14 0600 97.7 58 20 138/70 91 Room Air 10/14 0000 95 Room Air 10/13 2154 97.7 54 20 140/70 95 Room Air 10/13 1435 98.2 60 18 124/68 92 Room Air Intake & Output 10/14 1600 10/14 0800 10/14 0000 Intake Total 100 800 Output Total 600 950 700 Balance -600 -850 100 Intake, IV 0 Intake, Oral 100 800 Number 1 0 Bowel Movements Output, Urine 600 950 700 Physical Exam Other Physical Findings: She appears comfortable in no acute distress Extremities left BKA stump examined yesterday revealed resolution of her erythema, with no fluctuance or tenderness on exam. Results Last 24 Hours of Lab Results: Laboratory Tests 10/14 1012 Urines Ur Random Creatinine Pending U Random Total Protein Pending Last 24 Hours of Drew Results: No recent cultures Assessment/Plan Impression: Overall improved with temperatures and white blood cell count remaining normal and with resolution of the cellulitis of her left BKA stump on Cefazolin Day 5 of treatment. Her imaging did suggest a complex fluid collection, not felt to be amenable to aspiration by IR, and its etiology and significance is not clear. She has been evaluated by Vascular surgery, with no plans for revision of the stump at this time. Her renal function appears to be improving and suspect that her worsening renal failure was secondary to sepsis. Suggestion: 1. Vascular surgery follow-up regarding the "complex collection" seen on ultrasound and MRI 2. Discontinue Cefazolin and begin Keflex 500 mg po every 6 hours for 2 more days
--- NOTE | 2016-10-14 13:34 | PN- Housestaff ---
Subjective Follow-up For: Cellulitis Subjective: seen and examined patient, offers no complaints Review of Systems Constitutional: Denies: chills, diaphoresis, fever, malaise, weakness, unexplained weight loss. Cardiovascular: Denies: chest pain, edema, orthopena, palpitations, peripheral edema, syncope. Respiratory: Denies: cough, hemoptysis, orthopnea, short of breath, sputum production, stridor, wheezing. Objective Last 24 Hrs of Vital Signs/I&O Vital Signs Date Time Temp Pulse Resp B/P B/P Pulse O2 O2 Flow FiO2 Mean Ox Delivery Rate 10/14 1433 97.6 61 20 150/72 95 Room Air 10/14 0800 Room Air 10/14 0600 97.7 58 20 138/70 91 Room Air 10/14 0000 95 Room Air 10/13 2154 97.7 54 20 140/70 95 Room Air Intake & Output 10/14 1600 10/14 0800 10/14 0000 Intake Total 800 100 800 Output Total 1100 950 700 Balance -300 -850 100 Intake, IV 0 Intake, Oral 800 100 800 Number 2 0 Bowel Movements Output, Urine 1100 950 700 Physical Exam General Appearance: Alert, Oriented X3, Cooperative Cardiovascular: Regular Rate, Normal S1, Normal S2 Lungs: Clear to Auscultation, Normal Air Movement Abdomen: Normal Bowel Sounds, Soft, No Tenderness Assessment/Plan Assessment: 60-year-old woman with a history of diabetes, left leg DVT status post IVC filter, chronic kidney disease, neuropathy and peripheral vascular disease, status post left BKA and amputations of the right first and third toes, current admission for fevers chills and purulent discharge from the ulcer on her left knee stump. Found to have elevated white count and ESR, CT left leg, edema with area of fluid in the anterior aspect of the stump, suspicious for an abscess, with gas extending from the skin into the soft tissues, with no evidence of osteomyelitis. Bilateral lower extremity Dopplers were negative for right leg DVT, with poor compression and flow in the left mid and distal superficial femoral veins. Hospital day 5 continues to remain afebrile without leukocytosis. Problem list: -Cellulitis -Acute kidney injury on chronic kidney disease -Hypertension -Hyperlipidemia -COPD -Current every day smoker -History of left lower extremity BKA Plan: -Gen. medicine -Avoid NSAIDs for AMEYA -Continue Accucheck TIDAC/HS -Novolog/Levemir -continue to hold Lasix --Infectious disease on board appreciate recomendations, will imanih to VASQUE[facility] lord -prelim cultures from 10/09 show no growth, -Vascular surgery contacted regarding possible wound exploration and stump revision. -Endocrinology on board, appreciated recomendations -Pain Control -Diabetic diet -DVT prophylaxis -Full code Problem List: 1. Amputated above knee 2. CHRONIC RENAL FAILURE 3. Diabetes mellitus type 2 4. Cellulitis Pain Ratin Pain Location: na Pain Goal: Pain 4 or less Pain Plan: current regimen Tomorrow's Labs & Rationales: none required
--- NOTE | 2016-10-14 14:16 | NUR ---
SPOKE TO DR. BEAN ABOUT PT'S ANTIBIOTICS. DR. DREW SAID PATIENT WOULD BE SWITCHED TO PO ANTIBIOTICS. IV WAS REMOVED FOR INFILTRATION. DENIES PAIN AT SIDE. DR. BEAN SAID OKAY TO HAVE NO IV AT THIS TIME SINCE SHE HAS NOT REQUIRED ANYYTHING IV AND PATIENT DOESN'T WANT ANOTHER IV IF SHE DOESNT NEED ONE. WILL CONTINUE TO MONITOR.
[2016-10-14 14:33] VITALS: BP 150/72
--- NOTE | 2016-10-14 20:51 | PN- Att Addend ---
Attending Addendum Attending Brief Note Patient slowly getting better the leg is looking better and patient is a febrile area and she was switched to by mouth antibiotics and neurovascular to follow up the wound as an outpatient is stable and no more fevers then we can discharge in the morning Current Medications Sig/Suleman Start time Last Medication Dose Route Stop Time Status Admin Acetaminophen 650 MG Q6P PRN 10/09 2029 AC 10/14 PO 1337 Acetaminophen/ 1 TAB Q6P PRN 10/09 2029 AC Hydrocodone Bitart PO Cefazolin Sodium 1,000 MG Q12 10/11 220 DC 10/13 IV 2105 Cephalexin 500 MG BID 10/14 1315 AC 10/14 PO 1522 Citalopram 20 MG DAILY 10/10 1000 AC 10/14 Hydrobromide PO 0959 Docusate Sodium 100 MG DAILY 10/11 1257 DC PO Docusate Sodium 100 MG BID 10/10 1341 AC 10/14 PO 0959 Ergocalciferol 50,000 IU Q168 10/16 1000 AC PO Heparin Sodium 5,000 UNIT Q8 10/09 2199 AC 10/13 (Porcine) SC 0426 Hydromorphone HCl 0.5 MG Q6-PRN PRN 10/09 2029 AC IV Insulin Aspart 0 TIDAC/HS 10/10 1200 AC 10/14 SC 1657 Insulin Detemir 40 UNITS BID 10/11 2199 AC 10/14 SC 1001 Nicotine 14 MG DAILY 10/10 2027 AC 10/14 TOP 0959 Oxycodone HCl 80 MG BID 10/11 1000 AC 10/14 PO 1000 Polyethylene Glycol 17 GM DAILY 10/11 1257 AC 10/12 PO 1025 Pregabalin 300 MG BID 10/09 2199 AC 10/14 PO 1000 Senna/Docusate Sodium 2 TAB DAILY 10/11 1257 AC 10/13 PO 0906 Tiotropium [place] 1 PUF DAILY 10/10 1000 AC 10/14 INH 1014 Laboratory Tests 10/14/16 1012: Ur Random Creatinine 22.0, U Random Total Protein 148.1 H, Protein/Creatinin Ratio 6.70 H Vital Signs Date Time Temp Pulse Resp B/P B/P Pulse O2 O2 Flow FiO2 Mean Ox Delivery Rate 10/14 1433 97.6 61 20 150/72 95 Room Air Intake & Output 10/14 1600 Intake Total 800 Output Total 1100 Balance -300 Intake, Oral 800 Number 2 Bowel Movements Output, Urine 1100 Also follow with the aircraft restorer as an outpatient.
[2016-10-14 23:32] VITALS: BP 140/70
[2016-10-15 06:43] VITALS: BP 124/60
--- NOTE | 2016-10-15 07:22 | Patient Discharge Instructions ---
Discharge Instructions General Discharge Information You were seen/treated for: cellulitis Special Instructions: please follow up with your PCP with two weeks of discharge please follow up with your new financial aid manager with two weeks of discharge please follow up with your retail analytics manager within two weeks of discharge please follow up with your vascular surgeon within two weeks of discharge Diet Recommended Diet: Diabetic Acute Coronary Syndrome Inclusion Criteria At DC or during hospital stay patient has or had the following: ACS DIAGNOSIS No Discharge Core Measures Meds if any: Prescribed or Continued at Discharge Meds if any: NOT Prescribed or Continued at Discharge Congestive Heart Failure Inclusion Criteria At DC or during hospital stay patient has or had the following: CHF DIAGNOSIS No Discharge Core Measures Meds if any: Prescribed or Continued at Discharge Meds if any: NOT Prescribed or Continued at Discharge Cerebrovascular accident Inclusion Criteria At DC or during hospital stay patient has or had the following: CVA/TIA Diagnosis No Discharge Core Measures Meds if any: Prescribed or Continued at Discharge Meds if any: NOT Prescribed or Continued at Discharge Venous thromboembolism Inclusion Criteria VTE Diagnosis No VTE Type NONE VTE Confirmed by (Test) NONE Discharge Core Measures - Per Current guidelines, there needs to be overlap - treatment for the first 5 days of Warfarin therapy. - If discharged on Warfarin prior to 5 days of - overlap therapy, the patient will need to be - assessed for post discharge needs including - *Post discharge parental anticoagulation - *Warfarin and/or parental anticoagulation education - *Follow up date to check INR post discharge At least 5 days overlap therapy as Inpatient No Meds if any: Prescribed or Continued at Discharge Note: Overlap Therapy is Warfarin and Anticoagulant Meds if any: NOT Prescribed or Continued at Discharge
[2016-10-15] MEDS ORDERED: LEVEMIR100 UNIT/1 SC (08:31)
[2016-10-15] MEDS ORDERED: SENNA PLUS TAB1 EACH PO (08:31)
[2016-10-15] MEDS ORDERED: NOVOLOG100 UNIT/2 SC (08:42)
--- NOTE | 2016-10-15 08:49 | PN- Diabetes ---
Assessment/Plan Assessment: 60-year-old woman with a known history of diabetes with severe complications to the hospital because of ulceration and infection involving her right stump. The patient has a history of COPD, below the knee amputation, and chronic kidney disease stage IV. She is presently on Levemir 40 units twice a day and sliding scale NovoLog starting with 8 units for a value of 80-150. Her FSGs [id number], 125, 199, 162 and 121. Plan: continue the current insulin regimen for now; discharge plan for DM will be the same insulin regimen as inpatient; f/u in office after discharge. Subjective Subjective: She probably will go home today. Objective Last 24 Hrs of Vital Signs/I&O Vital Signs Date Time Temp Pulse Resp B/P B/P Pulse O2 O2 Flow FiO2 Mean Ox Delivery Rate 10/15 0643 97.9 58 20 124/60 98 Room Air 10/15 0000 97 Room Air 10/14 2332 96.9 54 20 140/70 97 Room Air 10/14 1433 97.6 61 20 150/72 95 Room Air Intake & Output 10/15 1600 10/15 0800 10/15 0000 Intake Total 300 900 Output Total Balance 300 900 Intake, Oral 300 900 Findings Pertinent Lab/Drew Results: Laboratory Tests 10/14 1012 Urines Ur Random Creatinine (mg/dL) 22.0 U Random Total Protein (0 - 12 mg/dL) 148.1 H Protein/Creatinin Ratio (< 0.2) 6.70 H
[2016-10-15] MEDS ORDERED: CEPHALEXIN500 M3 PO (10:21)
--- NOTE | 2016-10-15 19:49 | PN- Att Addend ---
Attending Addendum Attending Brief Note No new issues overnight, vital signs are stable patient is a febrile and no major changes on the leg and patient is ready to be discharged by mouth antibiotics follow-up with me in the vascular surgeon as an outpatient to see if she needs any more drainage. See the CMR the discharge summary
--- NOTE | 2016-10-17 12:54 | Discharge Summary ---
Visit Information Visit Dates Admission Date: 10/09/16 Discharge Date: 10/15/16 Hospital Course Course Attending Physician: GARRET HAYS MD Primary Care Physician: GARRET HAYS MD Consulting Request: Consulting Specialty: Endocrinology (infectious diseases, nephrolog) Consulting Physician: Viki Fung [facility] Reason for Consult: uncontrolled diabetes mellitus skin infection renal failure and peripheral Hospital Course: 60-year-old diabetic female vascular disease and previous osteomyelitis with below the knee amputation who comes in with infected area in the stump and fever was followed by the visiting nurse and got worse so she ended up coming to the hospital. Was evaluated admitted given IV antibiotics and local care of the wound at all the consultations needed like normalize her blood sugars, infectious diseases to get the proper antibiotic treatment. Nephrology to evaluate her chronic renal insufficiency and vascular to follow the leg. Patient improved temperature came down her white count improved to normal when stable she was discharged home on oral antibiotics to follow with all the specialists and myself Complications: None Allergies: Coded Allergies: NO KNOWN ALLERGIES (09/21/15) Significant Procedures: SERVICE DATE: 10/09/16 EXAM TYPE: RAD - XRY-CHEST XRAY, PA AND LATERAL EXAMINATION: XR CHEST CLINICAL INFORMATION: Evaluate for pneumonia fever COMPARISON: 09/19/2015 TECHNIQUE: 2 views of the chest were obtained. FINDINGS: There is generalized opacity in left upper lung. This may represent a small area of developing infiltrate. There is also some minimal change the right lung base. Remainder lung sifuentes are clear. There is vascular prominence here but this may represent baseline for this patient. IMPRESSION: Based on the imaging submitted I must consider developing left upper lung infiltrate and developing right basilar infiltrate. Follow-up films recommended. Vascular prominence may be baseline in this patient. SERVICE DATE: 10/09/16 EXAM TYPE: CAT - CT LOWER EXT WO IV CONTRAST EXAMINATION: CT LOWER EXTREMITY WITHOUT CONTRAST, LEFT CLINICAL INFORMATION: Fever, stump wound. COMPARISON: None TECHNIQUE: Multidetector volumetric imaging of the left lower extremity was performed without IV contrast. Coronal and sagittal reformatted images were obtained at the technologist workstation. DLP: 1201 mGy-cm FINDINGS: Lack of IV contrast limits evaluation for a fluid collection. There is prominent edema at the anterior stump with gas extending through the skin into the area of most prominent edema. This is suggestive of confluent complex fluid. Abscess not excluded at this location. No acute fracture. No erosive osseous changes are seen. Minimal ossification seen at the amputation site adjacent to the distal tibia. Degenerative changes are present at the knee with chondrocalcinosis. Tricompartmental joint space narrowing with osteophyte formation. The bones are osteopenic. There is diffuse atrophy of the musculature of the imaged left lower extremity. Small joint effusion at the knee. IMPRESSION: Lack of IV contrast limits evaluation for a fluid collection. There is prominent edema with area of fluid in the anterior aspect of the stump. Gas extends from the skin into the soft tissues of this area. Although an abscess cannot be confirmed on this imaging, this is suspicious. No acute erosive changes of the osseous structures. Degenerative changes at the knee. SERVICE DATE: 10/09/16 EXAM TYPE: US - US-EXT BILAT VENOUS DOPPLER EXAMINATION: US TRIPLEX LOWER EXTREMITY, BILATERAL CLINICAL INFORMATION: Lower extremity pain. Infection. Ulceration on the left. Swelling. Leg tenderness. Patient has a below the knee amputation on the left. COMPARISON: Triplex scans (of the right lower extremity) done in the past, all negative for DVT. May 2010, September 2010, February 2011, and August 2015. TECHNIQUE: Color-flow triplex imaging with spectral analysis and compression Doppler were performed on the bilateral lower extremities. The patient was unable to completely assume the supine position. FINDINGS: Respiratory variation, normal compression and augmented flow are noted throughout the right lower extremity. The visualized common femoral vein, superficial femoral vein, profunda femoral vein, popliteal vein and midcalf peroneal and posterior tibial venous segments show no evidence of deep venous thrombosis. Respiratory variation, normal compression, and augmented flow are noted in the left common femoral vein, the proximal superficial femoral vein, profunda femoral vein, and to lesser extent the popliteal vein. However, flow is very difficult to detect in the mid and distal portions of the left superficial femoral vein. Prominent lymph nodes are seen in the left groin. There is no Magallanes's cyst. IMPRESSION: 1. No evidence of DVT in the right lower extremity. 2. Poor compression and flow in the left mid and distal superficial femoral vein. The chronicity of this finding cannot be determined. SERVICE DATE: 10/10/16- EXAM TYPE: US - US-SUPERFICIAL IMAGING EXTREMI EXAMINATION: US SUPERFICIAL IMAGING, EXTREMITY CLINICAL INFORMATION: Fever. Increased white blood cell count. COMPARISON: Lower extremity CT 10/09/2016 TECHNIQUE: Grayscale and color Doppler imaging was obtained in the region of the left knee (amputation site) FINDINGS: Diffuse region of decreased echogenicity and increased vascularity. Only a small focus of fluid measuring 1.2 x 0.2 cm was appreciated approximately 1 cm below the skin surface. The remainder of this region likely represents complex, more solid than fluid. Packing is seen within the open wound laterally. IMPRESSION: Complex area of decreased echogenicity and increased vascularity with only SERVICE DATE: 10/10/16- EXAM TYPE: MRI - MRI-LT KNEE W/O GREG EXAMINATION: MR KNEE WITHOUT CONTRAST, LEFT CLINICAL INFORMATION: Discharge from ulcer of the left knee. Fever. Questionable abscess. History of left below-knee amputation. COMPARISON: CT dated 10/09/2016. TECHNIQUE: MRI of the knee without contrast is performed using routine sequences. FINDINGS: MENISCI: There is a skin ulceration at the anterolateral margin of the stump which measures 2 x 2 cm in area and 0.4 cm in depth. The underlying soft tissues are markedly edematous and thickened. No simple fluid collections are identified. Complex fluid may be present. The area of soft tissue inflammation has a depth of 2.8 cm, extending to the level of the underlying bone. The subcutaneous edema and soft tissue swelling is present around the stump diffusely, most pronounced anterolaterally. There is significant underlying periosteal edema at the anterolateral aspect of the amputated margin of the proximal tibia. The underlying bone marrow signal is normal however, without significant reactive underlying intramedullary edema or loss of the normal T1 marrow signal. The distal fibula is also normal in signal intensity. Underlying musculature is atrophic and fatty-replaced. There is marked intramuscular edema signal at the atrophic tibialis anterior. No fascial collections are identified. IMPRESSION: 1. Skin ulceration at the anterolateral margin of the stump with marked underlying soft tissue inflammation. No simple fluid collections are identified. The sensitivity and specificity for complex collections in the subcutaneous fat is limited without intravenous contrast. 2. Inflammation of the underlying tibialis anterior muscle and periosteum of the proximal tibia without evidence of osteomyelitis or deep abscess. minimal simple fluid. This likely represents a complex fluid collection containing primarily solid components. Case was reviewed with Dr. Munoz. The decision was made to not aspirate at this time given lack of simple fluid. The patient is to undergo MRI imaging. SERVICE DATE: 10/11/16- EXAM TYPE: US - US-RENAL/KIDNEY EXAMINATION: US RETROPERITONEAL COMPLETE (RENAL) CLINICAL INFORMATION: Elevated creatinine, renal failure. COMPARISON: CT abdomen and pelvis 09/20/2015 TECHNIQUE: Real-time imaging of the kidneys and bladder. Per the technologist note, the patient was unable to position decubitus. Best obtained images. The technologist had difficulty keeping the patient awake during the course of the examination. FINDINGS: RIGHT KIDNEY: 9.9 x 5.9 x 4.2 cm (SAG x AP x TRV). The kidney is grossly normal in size, contour, and echogenicity. Renal cortical thickness is normal. No calculi or focal parenchymal lesions. No hydronephrosis. LEFT KIDNEY: 10.1 x 5.7 x 5.8 cm (SAG x AP x TRV). The kidney is grossly normal in size, contour, and echogenicity. Renal cortical thickness is normal. No calculi or focal parenchymal lesions. No hydronephrosis. BLADDER: The bladder was not visualized. IMPRESSION: Limited examination. The bladder was not visualized. No evidence for renal obstruction.. SERVICE DATE: 10/11/16-0800 EXAM TYPE: RAD - XRY-FOOT COMPLETE, R EXAMINATION: XR FOOT, RIGHT CLINICAL INFORMATION: Right foot pain and swelling COMPARISON: 09/20/2015 TECHNIQUE: Right foot, 3 views FINDINGS: No acute findings within the right foot compared to 09/20/2015. There is nonspecific soft tissue swelling of the foot. There is mild osteophyte formation at the ankle joint. No soft tissue emphysema. There is heterotopic ossification along the expected area of the anterior surface of the Achilles tendon located 5-7 cm above the level of calcaneal insertion; this could be secondary to a remote Achilles tendon tear. There is enthesophyte formation of the calcaneus. Bones have normal alignment at the Chopart and Lisfranc joints. The great toe is amputated through the distal metadiaphysis of the metatarsal. The third toe is amputated through the base of the proximal phalanx. There is an old, healed fracture of the proximal phalanx of the second toe. No acute fractures, new areas of bone resorption or periostitis. IMPRESSION: No radiographic evidence of osteomyelitis within the right foot. Nonspecific soft tissue swelling of the foot. No evidence of metatarsal fracture or acute phalangeal injury. Pertinent Lab Results: Laboratory Tests 10/09 1800 Chemistry Sodium (137 - 145 mmol/L) 139 Potassium (3.5 - 5.1 mmol/L) 4.0 Chloride (98 - 107 mmol/L) 100 Carbon Dioxide (22 - 30 mmol/L) 25 Anion Gap (5 - 16) 14 BUN (7 - 17 mg/dL) 32 H Creatinine (0.5 - 1.0 mg/dL) 2.8 H Estimated GFR (>60 ml/min) 17 L BUN/Creatinine Ratio (7 - 25 %) 11.4 Glucose (65 - 99 mg/dL) 185 H Calcium (8.4 - 10.2 mg/dL) 9.6 Total Bilirubin (0.2 - 1.3 mg/dL) 0.5 AST (14 - 36 U/L) 18 ALT (9 - 52 U/L) 29 Alkaline Phosphatase (<127 U/L) 95 Total Protein (6.3 - 8.2 g/dL) 7.8 Albumin (3.5 - 5.0 g/dL) 3.7 Globulin (1.9 - 4.2 gm/dL) 4.1 Albumin/Globulin Ratio (1.1 - 2.2 %) 0.9 L Hematology CBC w Diff NO MAN DIFF REQ WBC (4.8 - 10.8 /CUMM) 15.3 H RBC (4.20 - 5.40 /CUMM) 3.74 L Hgb (12.0 - 16.0 G/DL) 11.6 L Hct (37 - 47 %) 34.9 L MCV (81.0 - 99.0 FL) 93.4 MCH (27.0 - 31.0 PG) 31.1 H RDW (11.5 - 14.5 %) 14.9 H Plt Count (130 - 400 /CUMM) 311 MPV (7.4 - 10.4 FL) 6.6 L Gran % (42.2 - 75.2 %) 90.3 H Lymphocytes % (20.5 - 51.1 %) 4.4 L Monocytes % (1.7 - 9.3 %) 3.3 Eosinophils % (0 - 5 %) 1.2 Basophils % (0.0 - 2.0 %) 0.8 Absolute Granulocytes (1.4 - 6.5 /CUMM) 13.8 H Absolute Lymphocytes (1.2 - 3.4 /CUMM) 0.7 L Absolute Monocytes (0.10 - 0.60 /CUMM) 0.5 Absolute Eosinophils (0.0 - 0.7 /CUMM) 0.2 Absolute Basophils (0.0 - 0.2 /CUMM) 0.1 PUBS MCHC (33.0 - 37.0 G/DL) 33.3 10/10/16 0740: Urinalysis LIGHT H, Urine Color YEL, Urine Clarity HAZY H, Urine pH 6.0, Ur Specific [place] 1.020, Urine Protein >=300 H, Urine Ketones NEG, Urine Nitrite NEG, Urine Bilirubin NEG, Urine Urobilinogen 0.2, Ur Leukocyte Esterase NEG, Ur Microscopic SEDIMENT EXAMINED, Urine RBC 1-3, Urine WBC 1-3 H, Ur Epithelial Cells FEW, Urine Bacteria MOD H, Granular Casts FEW H, Urine Hemoglobin SMALL H, Urine Glucose 250 H 10/10/16 0622: Anion Gap 11, Estimated GFR 13 L, BUN/Creatinine Ratio 10.0, PT 12.8 H, INR 1.22 H, CBC w Diff NO MAN DIFF REQ, RBC 3.24 L, MCV 94.6, MCH 31.9 H, RDW 14.9 H, MPV 7.1 L, Gran % 83.8 H, Lymphocytes % 9.0 L, Monocytes % 5.6, Eosinophils % 1.1, Basophils % 0.5, Absolute Granulocytes 10.9 H, Absolute Lymphocytes 1.2, Absolute Monocytes 0.7 H, Absolute Eosinophils 0.1, Absolute Basophils 0.1, PUBS MCHC 33.7, Random Vancomycin 13.9 10/10/16 0045: Lactic Acid 1.8 10/13/16 0620: Anion Gap 14, Estimated GFR 13 L, BUN/Creatinine Ratio 13.9 10/13/16 0620: Prot Electrophoresis Pending, Total Protein (PEP) Pending, Albumin % (PEP) Pending, [id number] Pending, Wgifz-1-Xlngrfmmx Pending, Hnxo-6-Sfregxas Pending, Bryg-3-Milzrskh Pending, Gamma Globulins Pending, Abnorm Protein Band 1 Pending, Abnorm Protein Band 2 Pending, Abnorm Protein Band 3 Pending, CBC w Diff NO MAN DIFF REQ, RBC 3.24 L, MCV 93.4, MCH 31.5 H, RDW 14.7 H, MPV 7.1 L, Gran % 70.7, Lymphocytes % 16.1 L, Monocytes % 6.3, Eosinophils % 6.2 H, Basophils % 0.7, Absolute Granulocytes 5.1, Absolute Lymphocytes 1.2, Absolute Monocytes 0.4, Absolute Eosinophils 0.4, Absolute Basophils 0, PUBS MCHC 33.7, Hep Bs Antigen NONREACTIVE, Hepatitis C Antibody NONREACTIVE 10/13/16 0600: Ur Random Creatinine Cancelled, U Random Total Protein Cancelled 10/12/16 0747: Anion Gap 13, Estimated GFR 11 L, BUN/Creatinine Ratio 12.8, CBC w Diff NO MAN DIFF REQ, RBC 3.05 L, MCV 93.8, MCH 31.4 H, RDW 14.8 H, MPV 7.0 L, Gran % 76.1 H, Lymphocytes % 13.4 L, Monocytes % 4.7, Eosinophils % 5.4 H, Basophils % 0.4, Absolute Granulocytes 5.8, Absolute Lymphocytes 1.0 L, Absolute Monocytes 0.4, Absolute Eosinophils 0.4, Absolute Basophils 0, PUBS MCHC 33.5 10/11/16 0650: Anion Gap 15, Estimated GFR 10 L, BUN/Creatinine Ratio 10.5, CBC w Diff NO MAN DIFF REQ, RBC 3.02 L, MCV 93.4, MCH 31.3 H, RDW 15.5 H, MPV 6.9 L, Gran % 65.8, Lymphocytes % 20.7, Monocytes % 6.5, Eosinophils % 6.2 H, Basophils % 0.8 , Absolute Granulocytes 5.2, Absolute Lymphocytes 1.6, Absolute Monocytes 0.5, Absolute Eosinophils 0.5, Absolute Basophils 0.1, PUBS MCHC 33.4, Random Vancomycin 19.3 Disposition Summary Disposition Principal Diagnosis: Wound infection the left stump and questionable left upper lobe infiltrate Additional Diagnosis: Diabetes mellitus Hypertension Hyperlipidemia COPD DKA Of osteomyelitis Discharge Disposition: home health services Discharge Instructions General Discharge Information Code Status: Full Code Patient's Diet: Diabetic healthy heart diet Patient's Activity: As tolerated Follow-Up Instructions/Appts: Follow-up with Dr. Hays endocrinology nephrology and vascular Medications at Discharge Discharge Medications: Stop taking the following medications: Insulin Aspart, Recombinant (Novolog Flexpen) 100 UNIT/ML INSULN.PEN Inject into fatty tissue BEFORE MEALS AND AT BEDTIME Qty = 30 Insulin Detemir (Levemir Flextouch) 100 UNIT/ML (3 ML) INSULN.PEN Inject into fatty tissue TWICE DAILY Qty = 45 Continue taking these medications: Citalopram Hydrobromide (Citalopram HBr) 20 MG TABLET 1 Tablet ORAL DAILY Qty = 90 Comments: Last Taken: 10/15/16 Time: 10am Tiotropium [place] (Spiriva) 18 MCG CAP.W.DEV 1 Capsule Inhale through mouth DAILY Qty = 90 Comments: Last Taken: 10/15/16 Time: 10AM Furosemide (Furosemide) 40 MG TABLET 60 Milligram ORAL DAILY Qty = 135 Comments: NOT GIVEN WHILE IN HOSPITAL Pregabalin (Lyrica) 300 MG CAPSULE 1 Capsule ORAL TWICE DAILY Qty = 60 Comments: Last Taken: 10/15/16 Time: 10AM Linagliptin (Tradjenta) 5 MG TABLET 1 Tablet ORAL DAILY Qty = 90 Comments: NOT GIVEN WHILE IN HOSPITAL Oxycodone HCl (Oxycontin) 80 MG TAB.ER.12H 1 Tablet ORAL THREE TIMES DAILY as needed for PAIN Qty = 90 Comments: Last Taken: 10/15/16 Time: 10AM Start taking the following new medications: Sennosides/Docusate Sodium (Senna Plus Tablet) 8.6 MG-50 MG TABLET 2 Tablet ORAL DAILY as needed for CONSTIPATION Days = 30 No Refills Comments: Last Taken: 10/15/16 Time: 10AM Insulin Detemir (Levemir) 100 UNIT/ML VIAL 40 Units Inject into fatty tissue TWICE DAILY Days = 30 No Refills Comments: Last Taken: 10/15/16 Time: 10AM Insulin Aspart (Novolog) 100 UNIT/ML VIAL 0 Units Inject into fatty tissue See Instructions Days = 30 No Refills Instructions: BEFORE MEALS Blood Insulin Sugar Units <80 0 80-150 8 151-200 10 201-250 12 251-300 14 301-350 16 351-400 18 >400 18 Call Doctor AT BEDTIME Blood Insulin Sugar Units <80 0 80-150 0 151-200 0 201-250 0 251-300 2 301-350 4 351-400 6 >400 8 Call Doctor Comments: Last Taken: 10/15/16 Time: 9AM Cephalexin (Cephalexin) 500 MG CAPSULE 500 Milligram ORAL TWICE DAILY Qty = 2 No Refills Comments: Last Taken: 10/15/16 Time: 10AM Copies To: SWETHA RODAS,STEFANY PRAKASH; JENN RODAS,NAMITA Sheridan; VIKI RODAS,MELITA Ashby; GARRET HAYS MD Attending MD Review Statement Documenting Attending: GARRET HAYS MD
== END 2016-10-15 10:59 | disposition home health service (06) | DRG 592 ==
LOC: ERH 15:45 → 2NA 18:45 → ERHI 18:45 → ENRESERV 22:04 → 2NA 22:45 → ENPENDDIS 10-15 09:58 → 2NA 10-15 10:59
PROVIDERS: Emergency Medicine; Internal Medicine; Internal Medicine Interventional Cardiology; ADMIT Internal Medicine
DX: L97.821 Non-pressure chronic ulcer of other part of left lower leg limited to breakdown of skin (principal); J18.9 Pneumonia, unspecified organism; A52.16 Charcot's arthropathy (tabetic); E11.22 Type 2 diabetes mellitus with diabetic chronic kidney disease; N18.3 Chronic kidney disease, stage 3 (moderate); T81.4XXA Infection following a procedure, initial encounter; I73.9 Peripheral vascular disease, unspecified; F17.200 Nicotine dependence, unspecified, uncomplicated; I12.9 Hypertensive chronic kidney disease with stage 1 through stage 4 chronic kidney disease, or unspecified chronic kidney disease; Z79.4 Long term (current) use of insulin; J44.9 Chronic obstructive pulmonary disease, unspecified; E78.5 Hyperlipidemia, unspecified; G62.9 Polyneuropathy, unspecified; Z89.512 Acquired absence of left leg below knee
CPT/HCPCS: 2NAP; 73721; 87075; 87184; 36415; 73630-RT; 76775; 76881; 81001; 82436; 82570; 84165; 86803; 87040; 87070; 87147; 87449; 87450; 93005; 93010; 93970; J0456; J0690; J0696; J1644; J3370; J7040; Q2036

== ENCOUNTER 2017-06-12 16:57 | Inpatient (IN) | payer OTHER ==
[~2017-06-12] VITALS: Ht 167.6 cm; Wt 114.8 kg
[~2017-06-12 16:57] MED LIST changes: +CEPHALEXIN500 M3 PO; +CITALOPRAM HBR20 MG PO; +FUROSEMIDE40 M1 PO; +LEVEMIR FL100 UNIT/1 SC; +LEVEMIR100 UNIT/1 SC; +LYRICA300 M1 PO; +NOVOLOG FL100 UNIT/1 SC; +NOVOLOG100 UNIT/2 SC; +OXYCONTIN80 M1 PO; +SENNA PLUS TAB1 EACH PO; +SPIRIVA18 MCG INH; +TRADJENTA5 M1 PO
[2017-06-12 17:47] LABS: ABSOLUTE BASOPHIL COUNT 0 /CUMM (0.0-0.2); ABSOLUTE EOSINOPHIL COUNT 0 /CUMM (0.0-0.7); ABSOLUTE GRANULOCYTE CT 45.9 /CUMM (1.4-6.5); ABSOLUTE LYMPH COUNT 0.8 /CUMM (1.2-3.4); ABSOLUTE MONOCYTE COUNT 0.8 /CUMM (0.10-0.60); BASOPHIL % 0 % (0.0-2.0); EOSINOPHIL % 0 % (0-5); GRANULOCYTE % 96.8 % (42.2-75.2); HEMATOCRIT 35.5 % (37-47); MEAN CORPUSCULAR HGB 32.3 PG (27.0-31.0); MEAN CORPUSCULAR HGB CONC 33.3 G/DL (33.0-37.0); MEAN CORPUSCULAR VOLUME 96.7 FL (81.0-99.0); MEAN PLATELET VOLUME 6.4 FL (7.4-10.4); PLATELET COUNT 547 /CUMM (130-400); RBC DISTRIBUTION WIDTH 13.9 % (11.5-14.5); RED BLOOD CELL CT 3.68 /CUMM (4.20-5.40)
--- NOTE | 2017-06-12 17:52 | ED CARDIAC/CP/PALPITATIONS ---
History of Present Illness General Chief Complaint: Chest Pain Stated Complaint: SOB, RIGHT SIDED CHEST PAIN Source: patient, old records Exam Limitations: no limitations Allergies Coded Allergies: NO KNOWN ALLERGIES (09/21/15) Reconcile Medications Alprazolam 0.25 MG TABLET 1 TAB PO BIDP PRN ANXIETY (Reported) Aspirin (Ecotrin*) 325 MG TABLET.DR 2 TAB PO DAILY HEART/BLOOD (Reported) Citalopram Hydrobromide (Citalopram HBr) 20 MG TABLET 1 TAB PO DAILY MENTAL HEALTH (Reported) Cyanocobalamin (Vitamin B-12) (B-12) 1,000 MCG TABLET 1 TAB PO DAILY SUPPLEMENT (Reported) Docusate Sodium (Colace) 100 MG CAPSULE 1 CAP PO BID STOOL SOFTENER (Reported ) Ergocalciferol (Vitamin D2) (Vitamin D2) 50,000 UNIT CAPSULE 1 CAP PO Q2W SUPPLEMENT (Reported) Furosemide 40 MG TABLET 40 MG PO DAILY DIURETIC (Reported) Insulin Aspart, Recombinant (Novolog Flexpen) 100 UNIT/ML INSULN.PEN DM ( Reported) Insulin Detemir (Levemir) 100 UNIT/ML VIAL 40 UNITS SC QAM DM (Reported) Insulin Detemir (Levemir) 100 UNIT/ML VIAL 60 UNITS SC QPM DM (Reported) Linagliptin (Tradjenta) 5 MG TABLET 1 TAB PO DAILY DM (Reported) Oxycodone HCl (Oxycontin) 80 MG TAB.ER.12H 1 TAB PO TID PRN PAIN (Reported) Pregabalin (Lyrica) 150 MG CAPSULE 1 CAP PO DAILY NERVE PAIN (Reported) Tiotropium [place] (Spiriva) 18 MCG CAP.W.DEV 1 CAP INH DAILY COPD (Reported) Triage Note: PT TO ED FOR R SIDED RIB PAIN THAT RADIATES INTO R CHEST/RUQ AREA WITH O2 SAT OF 82% ON RA. PT HAS COPD AND HAS HAD INTERMITTENT SOB AND CP X A FEW WEEKS INCREASINGLY GETTING WORSE. PT ONLY ABLE TO SAY APPROX 5-6 WORDS BETWEEN BREATHS. ALSO REPORTS INCREASED URINARY FREQUENCY AND FOUL SMELLING URINE X A EW WEEKS. TAKEN TO ROOM 2 FROM EKG [place]. Triage Nurses Notes Reviewed? yes Onset: Abrupt Duration: day(s): Timing: recent history Quality/Severity: mild, moderate Location: RT CHEST Radiation: no radiation Activities at Onset: activity Nitro Today/Relief: no nitro taken today Aspirin Today: 325 mg x 1, provided by ED Associated Symptoms: shortness of breath, weakness LMP (ages 10-50): post menopausal : No Patient currently breastfeeds: No HPI: 61-year-old female past medical history of COPD, PE, DM, presents for evaluation of chest pain and shortness of breath. Patient states that symptoms being off of the past 3 days and getting worse. Pain is located in the right chest and is worse with exertion. She also reports associated cough productive of yellow sputum and wheezing and shortness of breath. She has been using her inhalers without any improvement. She is a current every day smoker. No hemoptysis or lower extremity edema. No nausea vomiting or diarrhea. The pain is located in the right side of the chest and is worse with deep inspiration or touching the area. She rates the pain as a 8 out of 10. The pain does not radiate. She describes it as sharp stabbing. No sweats chills or fever. No recent hospitalizations. Shortness of breath is significantly worse with laying down. She has been sleeping sitting up. She is not on oxygen at home. (Shayne ARAUJO,Nicko) Vital Signs & Intake/Output Vital Signs & Intake/Output Vital Signs Date Time Temp Pulse Resp B/P B/P Pulse O2 O2 Flow FiO2 Mean Ox Delivery Rate 06/12 2157 98.2 90 20 135/60 94 Nasal 6.0L Cannula 06/12 2113 93 Nasal 6.0L Cannula 06/12 2106 92 Nasal 6.0L Cannula 06/12 194 99.3 92 26 132/60 89 Nasal 3.0L Cannula 06/12 1741 92 Nasal 4.0L Cannula 06/12 173 98.9 94 28 139/63 92 Nasal 4.0L Cannula (Anita RODAS,Michele Valdovinos) Past History Travel History Traveled to [place] past 21 day No Medical History Any Pertinent Medical History? 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 No (Nicko No) Review of Systems Review of Systems Constitutional: Reports: weakness. EENTM: Reports: no symptoms. Respiratory: Reports: see HPI, cough, orthopnea, short of breath, sputum production, wheezing. Cardiovascular: Reports: see HPI, chest pain. GI: Reports: no symptoms. Genitourinary: Reports: no symptoms. Musculoskeletal: Reports: no symptoms. Skin: Reports: no symptoms. Neurological/Psychological: Reports: no symptoms. Hematologic/Endocrine: Reports: no symptoms. Immunologic/Allergic: Reports: no symptoms. All Other Systems: Reviewed and Negative (Nicko No) Physical Exam Physical Exam General Appearance: well developed/nourished, no apparent distress, alert, awake , obese Head: atraumatic, normal appearance Eyes: Bilateral: normal appearance, PERRL, EOMI. Ears, Nose, Throat: normal pharynx, normal ENT inspection, hearing grossly normal Neck: normal inspection, supple, full range of motion Respiratory: quiet respiration, decreased breath sounds, respiratory distress, RT CHEST WALL PAIN WITH PALPATION , BREATH SOUNDS SIGNIFICANTLY DIMINISHED ON THE RIGHT LOWER LOBE Cardiovascular: normal peripheral pulses, tachycardia Peripheral Pulses: 2+ radial (R), 2+ radial (L) Gastrointestinal: normal bowel sounds, soft, non-tender, no organomegaly Back: normal inspection, normal range of motion Extremities: LEFT LOWER EXTREMITY AMPUTATION BELOW THE KNEE RIGHT LOWER EXTREMITY STASIS DERMATITIS MILD NONPITTING EDEMA 1+ dp PULSE Neurologic/Psych: no motor/sensory deficits, awake, alert, oriented x 3 Skin: intact, normal color, warm/dry Core Measures ACS in differential dx? Yes CVA/TIA Diagnosis No Sepsis Present: No Sepsis Focused Exam Completed? Yes (Nicko No) Progress Differential Diagnosis: AMI, aortic dissection, atrial fibrillation, CHF/pulm edema, costochondritis, hyperventilation, intracranial hemorrhage, musculoskeletal pain, pancreatitis, pericarditis, pneumonia, pneumothorax, PSVT, pulmonary embolism, PUD/GERD, PVCs/PACs, respiratory failure, unstable angina, V -fib/V-Tach Diagnostic Imaging: Viewed by Me: Radiology Read, CT Scan, Ultrasound. Discussed w/RAD: Radiology Read, CT Scan, Ultrasound. Radiology Impression: PATIENT: MEKHI VICENTE PRESENT AGE: 61 PATIENT ACCOUNT NO: [id number] : 53 LOCATION: [facility] ORDERING PHYSICIAN: Nicko ARAUJO SERVICE DATE: 06/12/17 EXAM TYPE: US - US- DUPLEX VENOUS EXTREM UNI EXAMINATION: US TRIPLEX LOWER EXTREMITY, RIGHT CLINICAL INFORMATION: Right lower extremity swelling. History of deep vein thrombosis and d-dimer elevation. COMPARISON: 10/09/2016. TECHNIQUE: Color-flow triplex imaging with spectral analysis and compression Doppler were performed on the lower extremity. FINDINGS: The right common femoral vein is compressible. Within the proximal thigh, the visualized profunda femoris vein is patent. The examined greater saphenous vein contains noncompressible thrombus which approaches the saphenofemoral junction, but does not involve the common femoral vein. Superficial femoral vein is is normal in the proximal, mid and distal thigh. Popliteal vein appears normal to the level of the trifurcation. On grayscale and color Doppler images, the visualized calf veins are grossly patent. No evidence of Magallanes's cyst. IMPRESSION: - No evidence of deep vein thrombosis in the right lower extremity. - However, thrombus is seen within the greater saphenous vein of the proximal thigh, extending to the saphenofemoral junction but not involving the femoral vein. DICTATED BY: Billy Bonds MD DATE/TIME DICTATED:06/12/171930 ENVIRONMENTAL REMEDIATION SPECIALIST:FARZANA DATE/TIME TRANSCRIBED:1930 CXR Impression: PATIENT: MEKHI VICENTE PRESENT AGE: 61 PATIENT ACCOUNT NO: [id number] : 53 LOCATION: [facility] ORDERING PHYSICIAN: Nicko ARAUJO SERVICE DATE: 06/12/17 EXAM TYPE: RAD - XRY-PORTABLE CHEST XRAY EXAMINATION: XR PORTABLE CHEST CLINICAL INFORMATION: Chest pain, shortness of breath and hypoxia. COMPARISON: CXR from 10/09/2016 TECHNIQUE: Portable frontal view of the chest was obtained. FINDINGS: Patient has a large body habitus. There is a new opacity of the inferolateral right hemithorax that obscures the diaphragm. This could represent a combination of peripheral consolidation with possible dxwii-dp-tlneeqxw pleural effusion. The left lung is well expanded and clear with exception of a linear focus of atelectasis in the inferior lingula. The left lung apex is obscured by patient's overlying chin. Cardiomegaly. The visualized bones are intact. IMPRESSION: 1. The opacity in the inferolateral right hemithorax probably represents a combination of consolidation (i.e., pneumonia) and pleural effusion. 2. Cardiomegaly without pulmonary edema. DICTATED BY: Billy Bonds MD DATE/TIME DICTATED:06/12/171815 ENVIRONMENTAL REMEDIATION SPECIALIST:FARZANA DATE/TIME TRANSCRIBED:06/12/171815 CONFIDENTIAL, DO NOT COPY WITHOUT APPROPRIATE AUTHORIZATION. Initial ED EKG: SINUS TACH TO RATE OF 100, RBBB AND LAFB, PROBALEL LVH WITH SECONDARY REPLOAZIATION ABN, LATERAL ST DEPRESSIONS (Shayne ARAUJO,Nicko) Plan of Care: Orders Procedure Date/time Status Consistent Carbohydrate 1 06/13 B Active Patient Data 06/12 2143 Active TROPONIN LEVEL 06/12 2142 Active EKG 06/12 2141 Active ARTERIAL BLOOD GAS (GEN) 06/12 2109 Active Misc Message 06/12 2035 Active ED Holding Orders 06/12 2035 Active Admit to inpatient 06/12 2035 Active Vital Signs 06/12 2035 Active Code Status 06/12 2035 Active Patient Data 06/12 2023 Active Add-on Test (ER Only) 06/[address] CHEST WO IV CONTRAST 06/[address] ABD & PELVIS W/O IV CONTRAS 06/12 182 Active UPPER RESPIRATORY CULTURE 06/12 182 Active CULTURE,URINE 06/12 182 Active BLOOD CULTURE 06/12 182 Active PARTIAL THROMBOPLASTIN TIME 06/12 173 Complete PROTHROMBIN TIME 06/12 1734 Complete Intake & Output 06/12 1731 Active URINALYSIS 06/12 1731 Complete TROPONIN LEVEL 06/12 1731 Complete MAGNESIUM 06/12 1731 Complete LACTIC ACID 06/12 1731 Complete D-DIMER 06/12 1731 Complete COMPREHENSIVE METABOLIC PANEL 06/12 1731 Complete CBC WITHOUT DIFFERENTIAL 06/12 1731 Complete B-TYPE NATRIURETIC PEP (BNP) 06/12 1731 Complete EKG 06/12 1701 Active Current Medications Sig/Suleman Start time Last Medication Dose Stop Time Status Admin Heparin Sodium 25,000 UNIT Q24H 06/12 2000 AC 06/12 (Porcine) 2040 (Heparin) Sodium Chloride 500 ML Laboratory Tests 06/12/172119: pH 7.26 *L, pCO2 40, pO2 77 L, HCO3 17 L, ABG O2 Sat (Measured) 92.0 L, P-50 (Temp Corrected) N, Carboxyhemoglobin 0.7 L, O2 Concentration % 6L, Temperature 99.3, O2 Delivery Method NC, Phlebotomy Draw Site RIGHT RADIAL 06/12/172030: Lactic Acid Cancelled 06/12/17 1841: Urine Color YEL, Urine Clarity CLDY H, Urine pH 6.0, Ur Specific [place] 1.020, Urine Protein 100 H, Urine Ketones NEG, Urine Nitrite POS H, Urine Bilirubin NEG, Urine Urobilinogen 0.2, Ur Leukocyte Esterase MOD H, Ur Microscopic SEDIMENT EXAMINED, Urine WBC > 75 H, Ur Epithelial Cells MANY H, Urine Bacteria MANY H, Micro UA Comment MORE INFO: H, Urine Hemoglobin MOD H, Urine Glucose 500 H 06/12/17 1734: Anion Gap 18 H, Estimated GFR 12 L, BUN/Creatinine Ratio 17.6, Glucose 252 H, Lactic Acid 1.6, Calcium 9.1, Magnesium 1.9, Total Bilirubin 0.4, AST 42 H, ALT 52, Alkaline Phosphatase 243 H, Troponin I 0.23 *H, Zat-V-Xlswaekuctt Pept 2520 H, Total Protein 6.8, Albumin 2.9 L, Globulin 3.9, Albumin/Globulin Ratio 0.7 L, PT 13.9 H, INR 1.33 H, APTT 29, D-Dimer High Sensitivty 3896 H, CBC w Diff MAN DIFF ORDERED, RBC 3.68 L, MCV 96.7, MCH 32.3 H, RDW 13.9, MPV 6.4 L, Gran % 96.8 H, Lymphocytes % 1.6 L, Monocytes % 1.6 L, Eosinophils % 0, Basophils % 0, Absolute Granulocytes 45.9 H, Segmented Neutrophils 93 H, Band Neutrophils 5, Absolute Lymphocytes 0.8 L, Monocytes 2, Absolute Monocytes 0.8 H, Absolute Eosinophils 0, Absolute Basophils 0, Platelet Estimate INCREASED, Normocytic RBCs VERIFIED, Normochromic RBCs VERIFIED, PUBS MCHC 33.3 Microbiology 06/12 2115 LOWER RESP: Respiratory Culture - CAN Cancelled: NUMBER OF SQUAMOUS CELLS INDICATES POOR QUALITY SPECIMEN 06/12 2115 LOWER RESP: Gram Stain - CAN Cancelled: NUMBER OF SQUAMOUS CELLS INDICATES POOR QUALITY SPECIMEN 06/12 1933 BLOOD: Blood Culture - RECD 06/12 1910 BLOOD: Blood Culture - RECD 06/12 1841 URINE ROUT: Urine Culture - RECD 06/12 182 UPPER RESP: Upper Respiratory Culture - ORD Patient seen and evaluated. She has right-sided chest pain with severely diminished breath sounds. She'll be given duo nebs and Solu-Medrol. Additionally chest x-ray showing a possible pneumonia with pleural effusion. DDX includes empyema. She'll be started on vancomycin and Fortaz. Cultures obtained. Patient's troponin is elevated to 0.23. Aspirin [address] Lucas. He recommends heparinizing the patient and ruling out pulmonary embolism. Patient's kidney function does not permit a CTA. Ultrasound of the right lower extremity is negative for DVT but does show clot in the saphenous vein. She may require a VQ scan tomorrow. She may also require thoracentesis. Patient has been having difficulty maintaining an oxygen saturation above 90% on 6 L nasal cannula. She was placed on a nonrebreather with high flow oxygen. A another DuoNeb was ordered along with an ABG. ABG showed acidosis of 7.26 with normal CO2. Patient was able to tolerate nasal cannula once again at 5 L after DuoNeb. Patient will be admitted to the ICU for further evaluation. Repeat EKG and troponin ordered. Patient started and covered with heparin and aspirin. Consider giving a beta yvonne however this may further compromise her respiratory status. Case discussed with Dr. Howard he agrees. Repeat EKG is unchanged from previous. Repeat troponin is pending. (Nicko No) (Michele Howard MD) Departure Departure Disposition: STILL A PATIENT Condition: Critical Clinical Impression Primary Impression: Leukocytosis Qualifiers: Leukocytosis type: unspecified Qualified Code: D72.829 - Elevated white blood cell count, unspecified Secondary Impressions: Elevated troponin Pleural effusion Pneumonia Qualifiers: Pneumonia type: due to unspecified organism Laterality: right Lung location: unspecified part of lung Qualified Code: J18.9 - Pneumonia, unspecified organism Referrals: Wallace Hays MD (PCP/Family) Departure Forms: Customer Survey General Discharge Information Admission Note Spoke With: Wallace Hays MD Documentation of Exam: Documentation of any treatments & extenuating circumstances including Concerns Regarding Discharge (functional status, medication knowledge or non-compliance, living conditions, etc.) that warrant an admission rather than observation: Patient has a white blood cell count of 47,000. She has a very large pneumonia with pleural effusion on the right side. This may represent empyema. Additionally she has aN elevated troponin with chest pain. [IV heparin, IV antibiotics, IV fluids, follow-up cultures, VQ scan, cardiology consult, pulmonology consult, IV steroids, monitoring of vital signs,] (Nicko No) PA/PARLOR MAID Co-Sign Statement Statement: ED Attending supervision documentation- [X] I saw and evaluated the patient. I have also reviewed all the pertinent lab results and diagnostic results. I agree with the findings and the plan of care as documented in the PA's/PARLOR MAID's documentation. Patient presents for evaluation of chest pain and foul-smelling urine. Physical examination reveals a relatively comfortable appearing patient with diminished breath sounds. [] I have reviewed the ED Record and agree with the PA's/PARLOR MAID's documentation. [] Additions or exceptions (if any) to the PAs/PARLOR MAID's note and plan are summarized below: [] (Anita RODAS,Michele Valdovinos) Critical Care Note Critical Care Note Critical Care Time: non-applicable (Nicko No) ED Sepsis Exam Date of Focused Sepsis Exam: 06/12/17 Time of Focused Sepsis Exam: 2202 Sepsis Cardiac Exam: Regular Rate/Rhythm Sepsis Resp Exam: DIMINISHED Sepsis Cap Refill Exam: <2 Sec Sepsis Peripheral Pulse Exam: Normal Sepsis Peripheral Pulse Location: Radial Sepsis Skin Color Exam: Pale Skin Temp/Moisture Exam: Warm/Dry (Nicko No) ED Attending Observation Initial Observation Note: I have seen and personally examined MEKHI VICENTE on 06/12/17 at 2204. I agree with the current emergency department documentation. The disposition (admission or discharge) is uncertain at this time, she needs a period of observation for the following reason(s): The ED Nurse caring for this patient has been personally informed as to what the patient is being observed for. (Nicko No)
[2017-06-12] MEDS ORDERED: NOVOLOG FL100 UNIT/1 SC (17:57)
[2017-06-12] MEDS ORDERED: ALPRAZOLAM0.25 M1 PO (17:57)
[2017-06-12] MEDS ORDERED: LEVEMIR100 UNIT/1 SC ×2 (17:58→17:59)
[2017-06-12] MEDS ORDERED: LYRICA150 M1 PO (18:00)
[2017-06-12] MEDS ORDERED: COLACE100 M1 PO (18:03)
[2017-06-12] MEDS ORDERED: ASPIRIN EC325 M2 PO (18:04)
[2017-06-12] MEDS ORDERED: VITAMIN D250000 UNIT PO (18:05)
[2017-06-12] MEDS ORDERED: B-121000 MC3 PO (18:05)
[2017-06-12] MEDS ORDERED: TRADJENTA5 M1 PO (18:06)
[2017-06-12 18:09] LABS: WHITE BLOOD CELL COUNT 47.4 /CUMM (4.8-10.8)
--- NOTE | 2017-06-12 18:22 | RADIOLOGY REPORT ---
EXAMINATION: XR PORTABLE CHEST CLINICAL INFORMATION: Chest pain, shortness of breath and hypoxia. COMPARISON: CXR from 10/09/2016 TECHNIQUE: Portable frontal view of the chest was obtained. FINDINGS: Patient has a large body habitus. There is a new opacity of the inferolateral right hemithorax that obscures the diaphragm. This could represent a combination of peripheral consolidation with possible eklmu-ug-wtzncttv pleural effusion. The left lung is well expanded and clear with exception of a linear focus of atelectasis in the inferior lingula. The left lung apex is obscured by patient's overlying chin. Cardiomegaly. The visualized bones are intact. IMPRESSION: 1. The opacity in the inferolateral right hemithorax probably represents a combination of consolidation (i.e., pneumonia) and pleural effusion. 2. Cardiomegaly without pulmonary edema.
--- NOTE | 2017-06-12 19:40 | ULTRASOUND REPORT ---
EXAMINATION: US TRIPLEX LOWER EXTREMITY, RIGHT CLINICAL INFORMATION: Right lower extremity swelling. History of deep vein thrombosis and d-dimer elevation. COMPARISON: 10/09/2016. TECHNIQUE: Color-flow triplex imaging with spectral analysis and compression Doppler were performed on the lower extremity. FINDINGS: The right common femoral vein is compressible. Within the proximal thigh, the visualized profunda femoris vein is patent. The examined greater saphenous vein contains noncompressible thrombus which approaches the saphenofemoral junction, but does not involve the common femoral vein. Superficial femoral vein is is normal in the proximal, mid and distal thigh. Popliteal vein appears normal to the level of the trifurcation. On grayscale and color Doppler images, the visualized calf veins are grossly patent. No evidence of Magallanes's cyst. IMPRESSION: - No evidence of deep vein thrombosis in the right lower extremity. - However, thrombus is seen within the greater saphenous vein of the proximal thigh, extending to the saphenofemoral junction but not involving the femoral vein.
[2017-06-12 20:09] LABS: PT 13.9 SEC (9.4-12.5); PTT 29 SEC (25-37)
--- NOTE | 2017-06-12 20:39 | History & Physical ---
General Information and HPI MD Statement: I have seen and personally examined MEKHI VICENTE and documented this H&P. The patient is a 61 year old F who presented with a patient stated chief complaint of right sided rib pain. Source of Information: patient, old records Exam Limitations: no limitations History of Present Illness: 59 y/o woman with PMH of DM, HTN, HLip, COPD, depression, diabetic neuropathy, DVT s/p IVC filter, cellulitis s/p varicose vein surgery, bilateral below left knee amputation presented with complaints of chest pain, dsypnea, and foul smelling urine. Allergies/Medications Allergies: Coded Allergies: NO KNOWN ALLERGIES (09/21/15) Home Med list Alprazolam 0.25 MG TABLET 1 TAB PO BIDP PRN ANXIETY (Reported) Aspirin (Ecotrin*) 325 MG TABLET.DR 2 TAB PO DAILY HEART/BLOOD (Reported) Citalopram Hydrobromide (Citalopram HBr) 20 MG TABLET 1 TAB PO DAILY MENTAL HEALTH (Reported) Cyanocobalamin (Vitamin B-12) (B-12) 1,000 MCG TABLET 1 TAB PO DAILY SUPPLEMENT (Reported) Docusate Sodium (Colace) 100 MG CAPSULE 1 CAP PO BID STOOL SOFTENER (Reported ) Ergocalciferol (Vitamin D2) (Vitamin D2) 50,000 UNIT CAPSULE 1 CAP PO Q2W SUPPLEMENT (Reported) Furosemide 40 MG TABLET 40 MG PO DAILY DIURETIC (Reported) Insulin Aspart, Recombinant (Novolog Flexpen) 100 UNIT/ML INSULN.PEN DM ( Reported) Insulin Detemir (Levemir) 100 UNIT/ML VIAL 40 UNITS SC QAM DM (Reported) Insulin Detemir (Levemir) 100 UNIT/ML VIAL 60 UNITS SC QPM DM (Reported) Linagliptin (Tradjenta) 5 MG TABLET 1 TAB PO DAILY DM (Reported) Oxycodone HCl (Oxycontin) 80 MG TAB.ER.12H 1 TAB PO TID PRN PAIN (Reported) Pregabalin (Lyrica) 150 MG CAPSULE 1 CAP PO DAILY NERVE PAIN (Reported) Tiotropium [place] (Spiriva) 18 MCG CAP.W.DEV 1 CAP INH DAILY COPD (Reported) Past History Travel History Traveled to [place] past 21 day No Medical History Neurological: NONE EENT: NONE Cardiovascular: hypertension, hyperlipidemia Respiratory: COPD Gastrointestinal: NONE Hepatic: NONE Renal: chronic kidney disease Psychiatric: depression Endocrine: diabetes Blood Disorders: NONE 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 child Services at Home: Nursing ETOH Use: denies use Illicit Drug Use: denies illicit drug use Functional Ability ADLs Independent: dressing, eating, toileting, bathing. Ambulation: cane IADLs Needs Assist: shopping, housework.
--- NOTE | 2017-06-12 22:29 | History & Physical ---
See Addendum General Information and HPI MD Statement: I have seen and personally examined MEKHI VICENTE and documented this H&P. The patient is a 61 year old F who presented with a patient stated chief complaint of CHEST PAIN Source of Information: patient, old records Exam Limitations: no limitations History of Present Illness: 61-year-old woman, current smoker with a history of COPD, diabetes type 2 with diabetic neuropathy, left leg DVT status post IVC filter, chronic kidney disease , neuropathy and peripheral vascular disease, status post left BKA and amputations of the right first and third toes, last admitted to [facility] in September 2016 for cellulitis treated with cefazolin and discharged on Keflex, comes for evaluation of chest pain of 4 days' duration associated with shortness of breath. States that her chest pain is left-sided but radiates to under her breast and back, severity is 8 out of 10, coughing and lying down makes it worse and rest makes it better. She's also been having cough of 2 weeks' duration with greenish sputum production and fever of 100 at home. Her daughter and her son- in-law are sick with similar respiratory symptoms. At baseline she sleeps on 3 pillows at night. Complains of of constipation of 3 days. On interview denied palpitations, headaches, sore throat, rashes, urinary symptoms, abdominal pain, nausea, vomiting, diaphoresis, dizziness, syncope. Allergies/Medications Allergies: Coded Allergies: NO KNOWN ALLERGIES (09/21/15) Home Med list Alprazolam 0.25 MG TABLET 1 TAB PO BIDP PRN ANXIETY (Reported) Aspirin (Ecotrin*) 325 MG TABLET.DR 2 TAB PO DAILY HEART/BLOOD (Reported) Citalopram Hydrobromide (Citalopram HBr) 20 MG TABLET 1 TAB PO DAILY MENTAL HEALTH (Reported) Cyanocobalamin (Vitamin B-12) (B-12) 1,000 MCG TABLET 1 TAB PO DAILY SUPPLEMENT (Reported) Docusate Sodium (Colace) 100 MG CAPSULE 1 CAP PO BID STOOL SOFTENER (Reported ) Ergocalciferol (Vitamin D2) (Vitamin D2) 50,000 UNIT CAPSULE 1 CAP PO Q2W SUPPLEMENT (Reported) Furosemide 40 MG TABLET 40 MG PO DAILY DIURETIC (Reported) Insulin Aspart, Recombinant (Novolog Flexpen) 100 UNIT/ML INSULN.PEN DM ( Reported) Insulin Detemir (Levemir) 100 UNIT/ML VIAL 40 UNITS SC QAM DM (Reported) Insulin Detemir (Levemir) 100 UNIT/ML VIAL 60 UNITS SC QPM DM (Reported) Linagliptin (Tradjenta) 5 MG TABLET 1 TAB PO DAILY DM (Reported) Oxycodone HCl (Oxycontin) 80 MG TAB.ER.12H 1 TAB PO TID PRN PAIN (Reported) Pregabalin (Lyrica) 150 MG CAPSULE 1 CAP PO DAILY NERVE PAIN (Reported) Tiotropium [place] (Spiriva) 18 MCG CAP.W.DEV 1 CAP INH DAILY COPD (Reported) Compliance With Home Meds: GOOD Past History Travel History Traveled to [place] past 21 day No Medical History Neurological: NONE EENT: NONE Cardiovascular: hypertension, hyperlipidemia Respiratory: COPD Gastrointestinal: NONE Hepatic: NONE Renal: chronic kidney disease Psychiatric: depression Endocrine: diabetes Blood Disorders: NONE 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 child Services at Home: Nursing ETOH Use: denies use Illicit Drug Use: denies illicit drug use Functional Ability ADLs Independent: dressing, eating, toileting, bathing. Ambulation: cane IADLs Needs Assist: shopping, housework. Review of Systems Review of Systems Constitutional: Reports: fever. Denies: chills, diaphoresis, malaise, weakness, unexplained weight loss. Cardiovascular: Reports: chest pain, orthopena. Denies: edema, palpitations, peripheral edema, syncope. Respiratory: Reports: cough, short of breath, sputum production, wheezing. Denies: hemoptysis, orthopnea, stridor. GI: Denies: abdominal pain, bloating, constipation, diarrhea, distention, bowel incontinence, melena, nausea, bloody stool, changes in stool, vomiting, steatorrhea. Genitourinary: Denies: discharge, dysuria, frequency, hematuria, hesitation, nocturia, pain, urgency. Musculoskeletal: Denies: back pain, gout, joint pain, joint swelling, muscle pain, muscle stiffness, neck pain. Exam & Diagnostic Data Last 24 Hrs of Vital Signs/I&O Vital Signs Date Time Temp Pulse Resp B/P B/P Pulse O2 O2 Flow FiO2 Mean Ox Delivery Rate 06/12 2157 98.2 90 20 135/60 94 Nasal 6.0L Cannula 06/12 2113 93 Nasal 6.0L Cannula 06/12 2106 92 Nasal 6.0L Cannula 06/12 1943 99.3 92 26 132/60 89 Nasal 3.0L Cannula 06/12 1741 92 Nasal 4.0L Cannula 06/12 1736 98.9 94 28 139/63 92 Nasal 4.0L Cannula Physical Exam General Appearance Alert, Oriented X3, Cooperative, No Acute Distress Skin No Rashes, No Breakdown HEENT Atraumatic, PERRLA, Mucous Membr. moist/pink Neck Supple, No JVD Lymphatic Cervical nl Cardiovascular Regular Rate, Normal S1, Normal S2, systolic murmur heard in all areas Lungs b/l decreased breath sounds Abdomen Normal Bowel Sounds, Soft, No Tenderness Extremities left leg non pitting edema with chronic skin changes, left stump examined, no skin breakdown or swelling noted. Diagnostic Data EKG Results NSR, rate 100, Qtc 496 bifasicular block CXR Results SERVICE DATE: 06/12/17 EXAM TYPE: RAD - XRY-PORTABLE CHEST XRAY FINDINGS: Patient has a large body habitus. There is a new opacity of the inferolateral right hemithorax that obscures the diaphragm. This could represent a combination of peripheral consolidation with possible [id number] pleural effusion. The left lung is well expanded and clear with exception of a linear focus of atelectasis in the inferior lingula. The left lung apex is obscured by patient's overlying chin. Cardiomegaly. The visualized bones are intact. IMPRESSION: 1. The opacity in the inferolateral right hemithorax probably represents a combination of consolidation (i.e., pneumonia) and pleural effusion. 2. Cardiomegaly without pulmonary edema. Other Results SERVICE DATE: 06/12/17 EXAM TYPE: US - US-DUPLEX VENOUS EXTREM UNI FINDINGS: The right common femoral vein is compressible. Within the proximal thigh, the visualized profunda femoris vein is patent. The examined greater saphenous vein contains noncompressible thrombus which approaches the saphenofemoral junction, but does not involve the common femoral vein. Superficial femoral vein is is normal in the proximal, mid and distal thigh. Popliteal vein appears normal to the level of the trifurcation. On grayscale and color Doppler images, the visualized calf veins are grossly patent. No evidence of Magallanes's cyst. IMPRESSION: - No evidence of deep vein thrombosis in the right lower extremity. - However, thrombus is seen within the greater saphenous vein of the proximal thigh, extending to the saphenofemoral junction but not involving the femoral vein. Assessment/Plan Assessment: 61-year-old woman, current smoker with a history of COPD, diabetes type 2 with diabetic neuropathy, left leg DVT status post IVC filter, chronic kidney disease , neuropathy and peripheral vascular disease, status post left BKA and amputations of the right first and third toes, last admitted to [facility] in September 2016 for cellulitis treated with cefazolin and discharged on Keflex, comes for evaluation of chest pain of 4 days' duration associated with shortness of breath and Cough. Vitals on admission: Afebrile, heart rate 90, respiratory rate 20, blood pressure 135/ 60 Labs significant for white count of 47.4, with left shift and bandemia four, hemoglobin 11.9, PT 13.9, INR 1.33, d-dimer 3000 896, hematocrit 35.5, white count 547, potassium 3.0, sodium 134, chloride 97, bicarbonate 20, anion gap 18, BUN 65, creatinine 3.7 which seems to be around her baseline, glucose 252, AST 42, ALT 52, ALP 243, troponin 0.23, pro BNP 2520, UA significant for proteinuria , positive for nitrates and leukocyte esterase, urine glucose of 500 Chest x-ray: 1. The opacity in the inferolateral right hemithorax probably represents a combination of consolidation (i.e., pneumonia) and pleural effusion. 2. Cardiomegaly without pulmonary edema. US TRIPLEX LOWER EXTREMITY, RIGHT: - No evidence of deep vein thrombosis in the right lower extremity. - However, thrombus is seen within the greater saphenous vein of the proximal thigh, extending to the saphenofemoral junction but not involving the femoral vein. ED course: She desaturated to 85% on 5LNC and was noted to have labored breathing and non rebreather was placed. By the time she was transferred to ICU her breathing improved and was back to 6L NC. Dr. Lucas was inform by ED and he recommended she be started on IV heparin. Assessment: Acute hypoxic respiratory failure posssibly secondary to PE vs COPD exacerbation due to underlying pneumonia. CURB- 65 score 2 (moderated risk), PSI index 133 (risk class V). Positive trop 2/2 to NSTEMI vs demand Problem list: Chest pain with positive troponins acute hypoxic respiratory failure leukocytosis (leukemoid/infection/malignancy (less likely) CAP COPD Diabetes chronic renal insufficiency Plan: admit to ICU for close monitoring of her respiratory status. Continue TRC/NEBS recieved Vanco and fortaz in ED, Will continue with Azithromycin and Ceftriaxone pending cultures She was unable to tolerate CT scan of chest as she was not able to lie flat. If symptoms don't improve consider CT chest to r/o empyema. In view of renal insufficiency, V/Q scan when able. trend trop/EKG to r/o ACS accuchecks, levemir and ISS diabetic diet. holding her home meds of lyrica, oxycodone and citralpram in view of respiratory status and drowsiness DVT ppx : IV heparin Full code As Ranked By This Provider Problem List: 1. Elevated troponin 2. Pneumonia Qualifiers Pneumonia type: due to unspecified organism Laterality: right Lung location: unspecified part of lung Qualified Code: J18.9 - Pneumonia, unspecified organism 3. Leukocytosis Qualifiers Leukocytosis type: unspecified Qualified Code: D72.829 - Elevated white blood cell count, unspecified Core Measures/Misc (03/08) Acute Coronary Syndrome ACS Diagnosis: No Congestive Heart Failure Congestive Heart Failure Diagnosis No Cerebrovascular Accident CVA/TIA Diagnosis: No VTE (View Protocol) VTE Risk Factors Acute Medical Illness No Mechanical VTE Prophylaxis d/t Physical Contraindication No VTE Pharm Prophylaxis d/t NA PharmProphylax ordered Sepsis (View protocol) Sepsis Present: No
[2017-06-12 23:00] VITALS: BP 134/66
[2017-06-13 03:57] LABS: ABSOLUTE BASOPHIL COUNT 0 /CUMM (0.0-0.2); ABSOLUTE EOSINOPHIL COUNT 0 /CUMM (0.0-0.7); ABSOLUTE LYMPH COUNT 0.5 /CUMM (1.2-3.4); ABSOLUTE MONOCYTE COUNT 0.3 /CUMM (0.10-0.60); BASOPHIL % 0 % (0.0-2.0); EOSINOPHIL % 0 % (0-5)
[2017-06-13 04:04] LABS: GRANULOCYTE % 98.1 % (42.2-75.2); MEAN CORPUSCULAR HGB 32.6 PG (27.0-31.0); MEAN CORPUSCULAR HGB CONC 33.6 G/DL (33.0-37.0); MEAN CORPUSCULAR VOLUME 97.2 FL (81.0-99.0); MEAN PLATELET VOLUME 6.5 FL (7.4-10.4); PLATELET COUNT 482 /CUMM (130-400); PTT 34 SEC (25-37); RBC DISTRIBUTION WIDTH 14.3 % (11.5-14.5); RED BLOOD CELL CT 3.14 /CUMM (4.20-5.40)
[2017-06-13 04:14] LABS: HEMATOCRIT 30.5 % (37-47); WHITE BLOOD CELL COUNT 44.9 /CUMM (4.8-10.8)
[2017-06-13 08:00] VITALS: BP 140/70
--- NOTE | 2017-06-13 09:05 | Cons- Endocrinology ---
General Information and HPI Consulting Request Date of Consult: 06/13/17 Requested By: medical team Reason for Consult: Uncontrolled diabetes Source of Information: patient, old records Exam Limitations: no limitations History of Present Illness: This 61-year-old woman with a previous history of COPD came to the emergency room because of shortness of breath and right-sided chest pain. She also had fever and sputum production. She has a previous history of diabetes type 2 treated with insulin. She has severe complications from her diabetes including neuropathy. She has had a left [id number] amputation. She also has chronic kidney disease stage IV. She is on Levemir 40 units in the morning and 60 units at night. She is also on some Tradgenta and also sliding scale NovoLog. Allergies/Medications Allergies: Coded Allergies: NO KNOWN ALLERGIES (09/21/15) Home Med List: Alprazolam 0.25 MG TABLET 1 TAB PO BIDP PRN ANXIETY (Reported) Aspirin (Ecotrin*) 325 MG TABLET.DR 2 TAB PO DAILY HEART/BLOOD (Reported) Citalopram Hydrobromide (Citalopram HBr) 20 MG TABLET 1 TAB PO DAILY MENTAL HEALTH (Reported) Cyanocobalamin (Vitamin B-12) (B-12) 1,000 MCG TABLET 1 TAB PO DAILY SUPPLEMENT (Reported) Docusate Sodium (Colace) 100 MG CAPSULE 1 CAP PO BID STOOL SOFTENER (Reported ) Ergocalciferol (Vitamin D2) (Vitamin D2) 50,000 UNIT CAPSULE 1 CAP PO Q2W SUPPLEMENT (Reported) Furosemide 40 MG TABLET 40 MG PO DAILY DIURETIC (Reported) Insulin Aspart, Recombinant (Novolog Flexpen) 100 UNIT/ML INSULN.PEN DM ( Reported) Insulin Detemir (Levemir) 100 UNIT/ML VIAL 40 UNITS SC QAM DM (Reported) Insulin Detemir (Levemir) 100 UNIT/ML VIAL 60 UNITS SC QPM DM (Reported) Linagliptin (Tradjenta) 5 MG TABLET 1 TAB PO DAILY DM (Reported) Oxycodone HCl (Oxycontin) 80 MG TAB.ER.12H 1 TAB PO TID PRN PAIN (Reported) Pregabalin (Lyrica) 150 MG CAPSULE 1 CAP PO DAILY NERVE PAIN (Reported) Tiotropium [place] [address] (Spiriva) 18 MCG CAP.W.DEV 1 CAP INH DAILY COPD (Reported) Review of Systems Review of Systems Constitutional: Reports: chills, fever. Cardiovascular: Reports: chest pain (right chest). Respiratory: Reports: cough, short of breath, sputum production. GI: Denies: abdominal pain, nausea, vomiting. Musculoskeletal: Denies: joint pain. Neurological/Psychological: Reports: numbness, tingling (hands and right foot). 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 Home Who Do You Live With? child Services at Home: Nursing Smoking Status: Current Everyday Smoker ETOH Use: denies use Illicit Drug Use: denies illicit drug use Functional Ability ADLs Independent: dressing, eating, toileting, bathing. Ambulation: cane IADLs Needs Assist: shopping, housework. Exam & Diagnostic Data Last 24 Hrs of Vital Signs/I&O Vital Signs Date Time Temp Pulse Resp B/P B/P Pulse O2 O2 Flow FiO2 Mean Ox Delivery Rate 06/13 0400 93 Nasal 6.0L Cannula 06/12 2352 91 Nasal 6.0L Cannula 06/12 2300 97.8 74 24 134/66 91 Nasal 6.0L Cannula 06/12 2157 98.2 90 20 135/60 94 Nasal 6.0L Cannula 06/12 2113 93 Nasal 6.0L Cannula 06/12 2106 92 Nasal 6.0L Cannula 06/12 1943 99.3 92 26 132/60 89 Nasal 3.0L Cannula 06/12 1741 92 Nasal 4.0L Cannula 06/12 173 98.9 94 28 139/63 92 Nasal 4.0L Cannula Intake & Output 06/13 1600 06/13 0800 06/13 0000 Intake Total 706 Output Total 850 Balance -144 Intake, IV 526 Intake, Oral 180 Output, Urine 850 Patient 250 lb Weight Weight Bed scale Measurement Method Vital Signs Date Time Temp Pulse Resp B/P B/P Pulse O2 O2 Flow FiO2 Mean Ox Delivery Rate 06/13 0400 93 Nasal 6.0L Cannula 06/12 2352 91 Nasal 6.0L Cannula 06/12 2300 97.8 74 24 134/66 91 Nasal 6.0L Cannula 06/12 2157 98.2 90 20 135/60 94 Nasal 6.0L Cannula 06/123 93 Nasal 6.0L Cannula 06/12 2106 92 Nasal 6.0L Cannula 06/12 1943 99.3 92 26 132/60 89 Nasal 3.0L Cannula 06/12 1741 92 Nasal 4.0L Cannula 06/12 1736 98.9 94 28 139/63 92 Nasal 4.0L Cannula Intake & Output 06/13 1600 06/13 0800 06/13 0000 Intake Total 706 Output Total 850 Balance -144 Intake, IV 526 Intake, Oral 180 Output, Urine 850 Patient 250 lb Weight Weight Bed scale Measurement Method Physical Exam General Appearance: alert, awake, anxious Head: normal appearance Eyes: Bilateral: normal appearance. Neck: normal inspection Respiratory: decreased breath sounds right lung Cardiovascular: regular rate/rhythm Gastrointestinal: normal bowel sounds, soft Extremities: left BKA right foot great toe absent Labs/Drew Results: Laboratory Tests 06/13 06/12 0330 2210 Chemistry Sodium (137 - 145 mmol/L) 136 L Potassium (3.5 - 5.1 mmol/L) 3.7 Chloride (98 - 107 mmol/L) 102 Carbon Dioxide (22 - 30 mmol/L) 17 L Anion Gap (5 - 16) 18 H BUN (7 - 17 mg/dL) 70 H Creatinine (0.5 - 1.0 mg/dL) 4.0 H Estimated GFR (>60 ml/min) 11 L Glucose (65 - 99 mg/dL) 333 H Calcium (8.4 - 10.2 mg/dL) 8.7 Phosphorus (2.5 - 4.5 mg/dL) 8.0 H Magnesium (1.6 - 2.3 mg/dL) 2.1 Total Bilirubin (0.2 - 1.3 mg/dL) 0.3 AST (14 - 36 U/L) 30 ALT (9 - 52 U/L) 46 Troponin I (< 0.11 ng/ml) 0.18 *H 0.25 *H Albumin (3.5 - 5.0 g/dL) 2.5 L Coagulation APTT (25 - 37 SEC) 34 Hematology CBC w Diff MAN DIFF ORDERED WBC (4.8 - 10.8 /CUMM) 44.9 *H RBC (4.20 - 5.40 /CUMM) 3.14 L Hgb (12.0 - 16.0 G/DL) 10.2 L Hct (37 - 47 %) 30.5 L MCV (81.0 - 99.0 FL) 97.2 MCH (27.0 - 31.0 PG) 32.6 H RDW (11.5 - 14.5 %) 14.3 Plt Count (130 - 400 /CUMM) 482 H MPV (7.4 - 10.4 FL) 6.5 L Gran % (42.2 - 75.2 %) 98.1 H Lymphocytes % (20.5 - 51.1 %) 1.2 L Monocytes % (1.7 - 9.3 %) 0.7 L Eosinophils % (0 - 5 %) 0 Basophils % (0.0 - 2.0 %) 0 Absolute Granulocytes (1.4 - 6.5 /CUMM) 44.0 H Absolute Lymphocytes (1.2 - 3.4 /CUMM) 0.5 L Absolute Monocytes (0.10 - 0.60 /CUMM) 0.3 Absolute Eosinophils (0.0 - 0.7 /CUMM) 0 Absolute Basophils (0.0 - 0.2 /CUMM) 0 Platelet Estimate (ADEQUATE) INCREASED Polychromasia 1+ Hypochromic-Microcytic 1+ Poikilocytosis 1+ PUBS MCHC (33.0 - 37.0 G/DL) 33.6 06/12 Blood Gas pH (7.35 - 7.45 PH) 7.26 *L pCO2 (35 - 45 TORR) 40 pO2 (80 - 100 TORR) 77 L HCO3 (21 - 28 MEQ/L) 17 L ABG O2 Sat (Measured) (>96.0 %) 92.0 L P-50 (Temp Corrected) N Carboxyhemoglobin (1.5 - 5.0 %) 0.7 L O2 Concentration % 6L Temperature (97.0 - 100.0 FARH) 99.3 O2 Delivery Method NC Chemistry Lactic Acid Cancelled Miscellaneous Phlebotomy Draw Site RIGHT RADIAL 06/12 4894 Chemistry Sodium (137 - 145 mmol/L) 134 L Potassium (3.5 - 5.1 mmol/L) 3.0 L Chloride (98 - 107 mmol/L) 97 L Carbon Dioxide (22 - 30 mmol/L) 20 L Anion Gap (5 - 16) 18 H BUN (7 - 17 mg/dL) 65 H Creatinine (0.5 - 1.0 mg/dL) 3.7 H Estimated GFR (>60 ml/min) 12 L BUN/Creatinine Ratio (7 - 25 %) 17.6 Glucose (65 - 99 mg/dL) 252 H Lactic Acid (0.7 - 2.1 mmol/L) 1.6 Calcium (8.4 - 10.2 mg/dL) 9.1 Magnesium (1.6 - 2.3 mg/dL) 1.9 Total Bilirubin (0.2 - 1.3 mg/dL) 0.4 AST (14 - 36 U/L) 42 H ALT (9 - 52 U/L) 52 Alkaline Phosphatase (<127 U/L) 243 H Troponin I (< 0.11 ng/ml) 0.23 *H [id number] Pept (<125 pg/mL) 2520 H Total Protein (6.3 - 8.2 g/dL) 6.8 Albumin (3.5 - 5.0 g/dL) 2.9 L Globulin (1.9 - 4.2 gm/dL) 3.9 Albumin/Globulin Ratio (1.1 - 2.2 %) 0.7 L Coagulation PT (9.4 - 12.5 SEC) 13.9 H INR (0.90 - 1.19) 1.33 H APTT (25 - 37 SEC) 29 D-Dimer High Sensitivty (0 - 243 ng/ml) 3896 H Hematology CBC w Diff MAN DIFF ORDERED WBC (4.8 - 10.8 /CUMM) 47.4 *H RBC (4.20 - 5.40 /CUMM) 3.68 L Hgb (12.0 - 16.0 G/DL) 11.9 L Hct (37 - 47 %) 35.5 L MCV (81.0 - 99.0 FL) 96.7 MCH (27.0 - 31.0 PG) 32.3 H RDW (11.5 - 14.5 %) 13.9 Plt Count (130 - 400 /CUMM) 547 H MPV (7.4 - 10.4 FL) 6.4 L Gran % (42.2 - 75.2 %) 96.8 H Lymphocytes % (20.5 - 51.1 %) 1.6 L Monocytes % (1.7 - 9.3 %) 1.6 L Eosinophils % (0 - 5 %) 0 Basophils % (0.0 - 2.0 %) 0 Absolute Granulocytes (1.4 - 6.5 /CUMM) 45.9 H Segmented Neutrophils (42.2 - 75.2 %) 93 H Band Neutrophils (0.0 - 5.0 %) 5 Absolute Lymphocytes (1.2 - 3.4 /CUMM) 0.8 L Monocytes (1.7 - 9.3 %) 2 Absolute Monocytes (0.10 - 0.60 /CUMM) 0.8 H Absolute Eosinophils (0.0 - 0.7 /CUMM) 0 Absolute Basophils (0.0 - 0.2 /CUMM) 0 Platelet Estimate (ADEQUATE) INCREASED Normocytic RBCs VERIFIED Normochromic RBCs VERIFIED PUBS MCHC (33.0 - 37.0 G/DL) 33.3 Urines Urine Color (YEL,AMB,STR) YEL Urine Clarity (CLEAR) CLDY H Urine pH (5.0 - 8.0) 6.0 Ur Specific [place] (1.001 - 1.035) 1.020 Urine Protein (NEG,<30 MG/DL) 100 H Urine Ketones (NEG) NEG Urine Nitrite (NEG) POS H Urine Bilirubin (NEG) NEG Urine Urobilinogen (0.1 - 1.0 EU/dl) 0.2 Ur Leukocyte Esterase (NEG) MOD H Ur Microscopic SEDIMENT EXAMINED Urine WBC (0 - 2 /HPF) > 75 H Ur Epithelial Cells (NONE,FEW) MANY H Urine Bacteria (NEG/NONE) MANY H Micro UA Comment MORE INFO: H Urine Hemoglobin (NEG) MOD H Urine Glucose (N MG/DL) 500 H Assessment/Plan Assessment/Plan This 61-year-old woman has a known history of diabetes mellitus type 2 associated with morbid obesity and severe complications. She has diabetic neuropathy and has had a left [id number] amputation. She also has chronic kidney disease stage IV. She is admitted with shortness of breath and the process in her right chest which may be pneumonia with a fluid collection or empyema. The patient had 1 dose of Solu-Medrol in the emergency room last night of 125 mg IV. The patient is on 100 units of Levemir at home in the form of 40 units in the a.m. and 60 units in the PM. She also takes sliding scale NovoLog. If the patient is to remain nothing by mouth, would begin D5 half-normal saline at 75 mL per hour. I would reduce her Levemir to 40 units twice a day. While on IV fluids we should check her sugar every 4 hours and use sliding scale NovoLog. Sliding scale NovoLog while on IV fluid should be less than 150 give no insulin, 150-200 give 6 units NovoLog, 201-250 give 7 units NovoLog, 251-300 give 8 units NovoLog, real 301-350 give 9 units NovoLog, 351-400 give 10 units NovoLog. Plan the patient is eating again we should Hep-Lock the patient's IV fluids which her sliding scale NovoLog 2 before meals. Her insulin regimen will probably need further adjustments once we observe her sugar in the hospital. Of note the patient's potassium is borderline low. This should be repeated because as we give her insulin her potassium might become lower and she may need some potassium supplementation. Consult Acknowledgment - Thank you for your consult request.
--- NOTE | 2017-06-13 09:19 | Cons- Infect Disease ---
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 She also noted urinary complaints including frequency and foul-smelling urine. On admission she was afebrile, with an O2 sat of 82% on room air. Laboratory data revealed a white blood cell count of 47,000, with 93 segs and 5 bands and toxic granulation, BUN/creatinine 65 and 3.7, alkaline phosphatase 243, AST/ALT 42 and 52, troponin 0.23, proBNP 2520, INR 1.33, ABG 7.26/ 40/77 on 6 L/m. Urinalysis greater than 75 WBCs. Chest x-ray revealed an opacity in the right hemithorax. A Doppler of the right lower extremity was negative for DVT, but revealed a thrombus within the greater saphenous vein of the proximal thigh, extending to the saphenofemoral junction. She was given a dose of Solumedrol. She was given Vancomycin, Ceftazidime and Azithromycin but has now been changed to Ceftriaxone, which has not yet been given, and Azithromycin. She was also begun on IV Heparin. She has remained afebrile overnight. This morning she complains of shortness of breath, preventing her from lying flat, and right sided chest pain. Allergies/Medications Allergies: Coded Allergies: NO KNOWN ALLERGIES (09/21/15) Home Med List: Alprazolam 0.25 MG TABLET 1 TAB PO BIDP PRN ANXIETY (Reported) Aspirin (Ecotrin*) 325 MG TABLET.DR 2 TAB PO DAILY HEART/BLOOD (Reported) Citalopram Hydrobromide (Citalopram HBr) 20 MG TABLET 1 TAB PO DAILY MENTAL HEALTH (Reported) Cyanocobalamin (Vitamin B-12) (B-12) 1,000 MCG TABLET 1 TAB PO DAILY SUPPLEMENT (Reported) Docusate Sodium (Colace) 100 MG CAPSULE 1 CAP PO BID STOOL SOFTENER (Reported ) Ergocalciferol (Vitamin D2) (Vitamin D2) 50,000 UNIT CAPSULE 1 CAP PO Q2W SUPPLEMENT (Reported) Furosemide 40 MG TABLET 40 MG PO DAILY DIURETIC (Reported) Insulin Aspart, Recombinant (Novolog Flexpen) 100 UNIT/ML INSULN.PEN DM ( Reported) Insulin Detemir (Levemir) 100 UNIT/ML VIAL 40 UNITS SC QAM DM (Reported) Insulin Detemir (Levemir) 100 UNIT/ML VIAL 60 UNITS SC QPM DM (Reported) Linagliptin (Tradjenta) 5 MG TABLET 1 TAB PO DAILY DM (Reported) Oxycodone HCl (Oxycontin) 80 MG TAB.ER.12H 1 TAB PO TID PRN PAIN (Reported) Pregabalin (Lyrica) 150 MG CAPSULE 1 CAP PO DAILY NERVE PAIN (Reported) Tiotropium [place] (Spiriva) 18 MCG CAP.W.DEV 1 CAP INH DAILY COPD (Reported) Past History Travel History Traveled to [place] past 21 day No Medical History Blood Transfusion Hx: No Neurological: peripheral neuropathy EENT: NONE Cardiovascular: hypertension, hyperlipidemia, PVD Respiratory: COPD Gastrointestinal: NONE Hepatic: NONE Renal: chronic kidney disease Psychiatric: depression Endocrine: diabetes Blood Disorders: DVT (left leg) 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 Home Who Do You Live With? child Services at Home: Nursing Smoking Status: Current Everyday Smoker ETOH Use: denies use Illicit Drug Use: denies illicit drug use Functional Ability ADLs Independent: dressing, eating, toileting, bathing. Ambulation: cane IADLs Needs Assist: shopping, housework. Review of Systems Review of Systems All Other Systems: Reviewed and Negative Exam & Diagnostic Data Last 24 Hrs of Vital Signs/I&O Vital Signs Date Time Temp Pulse Resp B/P B/P Pulse O2 O2 Flow FiO2 Mean Ox Delivery Rate 06/13 0400 93 Nasal 6.0L Cannula 06/12 2352 91 Nasal 6.0L Cannula 06/12 2300 97.8 74 24 134/66 91 Nasal 6.0L Cannula 06/127 98.2 90 20 135/60 94 Nasal 6.0L Cannula 06/12 2113 93 Nasal 6.0L Cannula 06/126 92 Nasal 6.0L Cannula 06/12 1943 99.3 92 26 132/60 89 Nasal 3.0L Cannula 06/12 1741 92 Nasal 4.0L Cannula 06/12 1736 98.9 94 28 139/63 92 Nasal 4.0L Cannula Intake & Output 06/13 1600 06/13 0800 06/13 0000 Intake Total 706 Output Total 850 Balance -144 Intake, IV 526 Intake, Oral 180 Output, Urine 850 Patient 250 lb Weight Weight Bed scale Measurement Method Physical Exam Other Physical Findings: Afebrile status post 1 dose of Solumedrol. She is awake and alert in no acute distress. Skin reveals no rash. HEENT negative. Neck is supple with no adenopathy. Lungs decreased breath sounds at the right base. Heart regular rhythm with no murmur. Abdomen is obese, soft, nontender with positive bowel sounds. Back no CVA tenderness. Extremities chronic venous stasis changes to the right lower extremity, with minimal erythema and edema, with no tenderness; left BKA stump with no inflammation. Neuro is without focality. Last 24 Hours of Lab Results: Laboratory Tests 06/13 06/12 0330 2210 Chemistry Sodium (137 - 145 mmol/L) 136 L Potassium (3.5 - 5.1 mmol/L) 3.7 Chloride (98 - 107 mmol/L) 102 Carbon Dioxide (22 - 30 mmol/L) 17 L Anion Gap (5 - 16) 18 H BUN (7 - 17 mg/dL) 70 H Creatinine (0.5 - 1.0 mg/dL) 4.0 H Estimated GFR (>60 ml/min) 11 L Glucose (65 - 99 mg/dL) 333 H Calcium (8.4 - 10.2 mg/dL) 8.7 Phosphorus (2.5 - 4.5 mg/dL) 8.0 H Magnesium (1.6 - 2.3 mg/dL) 2.1 Total Bilirubin (0.2 - 1.3 mg/dL) 0.3 AST (14 - 36 U/L) 30 ALT (9 - 52 U/L) 46 Troponin I (< 0.11 ng/ml) 0.18 *H 0.25 *H Albumin (3.5 - 5.0 g/dL) 2.5 L Coagulation APTT (25 - 37 SEC) 34 Hematology CBC w Diff MAN DIFF ORDERED WBC (4.8 - 10.8 /CUMM) 44.9 *H RBC (4.20 - 5.40 /CUMM) 3.14 L Hgb (12.0 - 16.0 G/DL) 10.2 L Hct (37 - 47 %) 30.5 L MCV (81.0 - 99.0 FL) 97.2 MCH (27.0 - 31.0 PG) 32.6 H RDW (11.5 - 14.5 %) 14.3 Plt Count (130 - 400 /CUMM) 482 H MPV (7.4 - 10.4 FL) 6.5 L Gran % (42.2 - 75.2 %) 98.1 H Lymphocytes % (20.5 - 51.1 %) 1.2 L Monocytes % (1.7 - 9.3 %) 0.7 L Eosinophils % (0 - 5 %) 0 Basophils % (0.0 - 2.0 %) 0 Absolute Granulocytes (1.4 - 6.5 /CUMM) 44.0 H Absolute Lymphocytes (1.2 - 3.4 /CUMM) 0.5 L Absolute Monocytes (0.10 - 0.60 /CUMM) 0.3 Absolute Eosinophils (0.0 - 0.7 /CUMM) 0 Absolute Basophils (0.0 - 0.2 /CUMM) 0 Platelet Estimate (ADEQUATE) INCREASED Polychromasia 1+ Hypochromic-Microcytic 1+ Poikilocytosis 1+ PUBS MCHC (33.0 - 37.0 G/DL) 33.6 06/12 Blood Gas pH (7.35 - 7.45 PH) 7.26 *L pCO2 (35 - 45 TORR) 40 pO2 (80 - 100 TORR) 77 L HCO3 (21 - 28 MEQ/L) 17 L ABG O2 Sat (Measured) (>96.0 %) 92.0 L P-50 (Temp Corrected) N Carboxyhemoglobin (1.5 - 5.0 %) 0.7 L O2 Concentration % 6L Temperature (97.0 - 100.0 FARH) 99.3 O2 Delivery Method NC Chemistry Lactic Acid Cancelled Miscellaneous Phlebotomy Draw Site RIGHT RADIAL 06/12 06/12 5451 1734 Chemistry Sodium (137 - 145 mmol/L) 134 L Potassium (3.5 - 5.1 mmol/L) 3.0 L Chloride (98 - 107 mmol/L) 97 L Carbon Dioxide (22 - 30 mmol/L) 20 L Anion Gap (5 - 16) 18 H BUN (7 - 17 mg/dL) 65 H Creatinine (0.5 - 1.0 mg/dL) 3.7 H Estimated GFR (>60 ml/min) 12 L BUN/Creatinine Ratio (7 - 25 %) 17.6 Glucose (65 - 99 mg/dL) 252 H Lactic Acid (0.7 - 2.1 mmol/L) 1.6 Calcium (8.4 - 10.2 mg/dL) 9.1 Magnesium (1.6 - 2.3 mg/dL) 1.9 Total Bilirubin (0.2 - 1.3 mg/dL) 0.4 AST (14 - 36 U/L) 42 H ALT (9 - 52 U/L) 52 Alkaline Phosphatase (<127 U/L) 243 H Troponin I (< 0.11 ng/ml) 0.23 *H [id number] Pept (<125 pg/mL) 2520 H Total Protein (6.3 - 8.2 g/dL) 6.8 Albumin (3.5 - 5.0 g/dL) 2.9 L Globulin (1.9 - 4.2 gm/dL) 3.9 Albumin/Globulin Ratio (1.1 - 2.2 %) 0.7 L Coagulation PT (9.4 - 12.5 SEC) 13.9 H INR (0.90 - 1.19) 1.33 H APTT (25 - 37 SEC) 29 D-Dimer High Sensitivty (0 - 243 ng/ml) 3896 H Hematology CBC w Diff MAN DIFF ORDERED WBC (4.8 - 10.8 /CUMM) 47.4 *H RBC (4.20 - 5.40 /CUMM) 3.68 L Hgb (12.0 - 16.0 G/DL) 11.9 L Hct (37 - 47 %) 35.5 L MCV (81.0 - 99.0 FL) 96.7 MCH (27.0 - 31.0 PG) 32.3 H RDW (11.5 - 14.5 %) 13.9 Plt Count (130 - 400 /CUMM) 547 H MPV (7.4 - 10.4 FL) 6.4 L Gran % (42.2 - 75.2 %) 96.8 H Lymphocytes % (20.5 - 51.1 %) 1.6 L Monocytes % (1.7 - 9.3 %) 1.6 L Eosinophils % (0 - 5 %) 0 Basophils % (0.0 - 2.0 %) 0 Absolute Granulocytes (1.4 - 6.5 /CUMM) 45.9 H Segmented Neutrophils (42.2 - 75.2 %) 93 H Band Neutrophils (0.0 - 5.0 %) 5 Absolute Lymphocytes (1.2 - 3.4 /CUMM) 0.8 L Monocytes (1.7 - 9.3 %) 2 Absolute Monocytes (0.10 - 0.60 /CUMM) 0.8 H Absolute Eosinophils (0.0 - 0.7 /CUMM) 0 Absolute Basophils (0.0 - 0.2 /CUMM) 0 Platelet Estimate (ADEQUATE) INCREASED Normocytic RBCs VERIFIED Normochromic RBCs VERIFIED PUBS MCHC (33.0 - 37.0 G/DL) 33.3 Urines Urine Color (YEL,AMB,STR) YEL Urine Clarity (CLEAR) CLDY H Urine pH (5.0 - 8.0) 6.0 Ur Specific [place] (1.001 - 1.035) 1.020 Urine Protein (NEG,<30 MG/DL) 100 H Urine Ketones (NEG) NEG Urine Nitrite (NEG) POS H Urine Bilirubin (NEG) NEG Urine Urobilinogen (0.1 - 1.0 EU/dl) 0.2 Ur Leukocyte Esterase (NEG) MOD H Ur Microscopic SEDIMENT EXAMINED Urine WBC (0 - 2 /HPF) > 75 H Ur Epithelial Cells (NONE,FEW) MANY H Urine Bacteria (NEG/NONE) MANY H Micro UA Comment MORE INFO: H Urine Hemoglobin (NEG) MOD H Urine Glucose (N MG/DL) 500 H Last 24 Hours of Drew Results: Blood cultures 2 June 12 negative Urine culture June 12 greater than 100,000 colonies of possible Staph Diagnostic Data Recent Imaging Findings: Chest x-ray revealed an opacity in the right hemithorax. Doppler of the right lower extremity was negative for DVT, but revealed a thrombus within the greater saphenous vein of the proximal thigh, extending to the saphenofemoral junction. Assessment/Plan Assessment/Plan Impression: This is a 61-year-old woman with diabetes, peripheral vascular disease, chronic kidney disease, COPD, and a history of left lower extremity DVT, status post IVC filter, admitted on June 12 with a several week history of a cough, occasionally productive of yellow sputum, undocumented fevers with chills, and more recent onset of right sided chest pain and increasing shortness of breath, found to be afebrile with a marked leukocytosis, hypoxia and with an opacity in the right hemithorax, suggestive of a combination of consolidation and effusion. I am concerned about an empyema, given the chronicity of her complaints, her pleuritic pain and marked leukocytosis and she will require a thoracentesis if she is found on further imaging to have a pleural effusion. A CT may not be feasible if she cannot lie flat, but an ultrasound can be done. She is on Heparin, which will need to be held for 4 hours prior to a thoracentesis. Her urinary symptoms are of unclear significance, but she does have pyuria and a positive urine culture; therefore she will need to be covered for this pending further evaluation. The significance of the thrombus within the greater saphenous vein is unclear, but she is currently on Heparin. Likewise her elevated troponin may be related to her infection. Suggestion: 1. Ultrasound of the right chest if unable to do a CT of the chest 2. Thoracentesis today if she has a tappable pleural effusion (will need to contact IR) 3. Urine for strep pneumo antigen 4. Sputum culture 5. Random Vancomycin level in the a.m. on June 14 6. Discontinue Ceftriaxone and Azithromycin 7. Begin Unasyn 3 g IV every 8 hours pending above Consult Acknowledgment - Thank you for your consult request.
--- NOTE | 2017-06-13 10:31 | PN- Housestaff ---
Subjective Follow-up For: Acute hypoxic respiratory failure secondary to pneumonia Elevated troponins Complaints: cough, shortness of breath. Subjective: Patient was admitted yesterday for cough with productive sputum, chest pain and fever for the past 3 days. She continues to cough and feel short of breath on exertion. While going to the bathroom she desatted to 89%. Review of Systems Constitutional: Reports: chills, malaise, weakness. EENTM: Reports: no symptoms. Cardiovascular: Reports: chest pain, edema, orthopena. Respiratory: Reports: cough, orthopnea, short of breath, sputum production. Gastrointestinal: Reports: no symptoms. Genitourinary: Reports: no symptoms. Musculoskeletal: Reports: no symptoms. Objective Last 24 Hrs of Vital Signs/I&O Vital Signs Date Time Temp Pulse Resp B/P B/P Pulse O2 O2 Flow FiO2 Mean Ox Delivery Rate 06/13 0400 93 Nasal 6.0L Cannula 06/12 2352 91 Nasal 6.0L Cannula 06/12 2300 97.8 74 24 134/66 91 Nasal 6.0L Cannula 06/12 2157 98.2 90 20 135/60 94 Nasal 6.0L Cannula 06/123 93 Nasal 6.0L Cannula 06/12 2106 92 Nasal 6.0L Cannula 06/12 1943 99.3 92 26 132/60 89 Nasal 3.0L Cannula 06/12 1741 92 Nasal 4.0L Cannula 06/12 1736 98.9 94 28 139/63 92 Nasal 4.0L Cannula Intake & Output 06/13 1600 06/13 0800 06/13 0000 Intake Total 706 Output Total 850 Balance -144 Intake, IV 526 Intake, Oral 180 Output, Urine 850 Patient 113.511 kg Weight Weight Bed scale Measurement Method Physical Exam General Appearance: Alert, Oriented X3, Moderate Distress, MORBIDLY OBESE Skin: CHRONIC VENOUS STASIS CHANGES ON THE RIGHT FOOT. 1+ EDEMA. Skin Temp/Moisture Exam: Warm/Dry Sepsis Skin Exam (color): Normal for Ethnicity HEENT: Atraumatic, PERRLA Neck: Supple Lymphatic: Cervical nl Cardiovascular: Regular Rate, Normal S1, Normal S2, No Murmurs Lungs: diminished breath sounds bilaterally,basal crackles Abdomen: Normal Bowel Sounds, Soft, No Tenderness Neurological: Normal Speech Extremities: left BKA Stump with prosthesis.chronic venous stasis changes to right leg, amputations of right first and third toes. Vascular: diminished pulses in the right foot Current Medications: Current Medications Sig/Suleman Start time Last Medication Dose Route Stop Time Status Admin Albuterol Sulfate 3 ML ONCE ONE 06/12 2115 DC 06/12 INH 06/12 Albuterol Sulfate 3 ML ONCE ONE 06/12 1745 DC 06/12 INH 06/12 1746 174 Aspirin 0 .STK-MED ONE 06/12 1950 DC PO Aspirin 325 MG ONCE ONE 06/12 1900 DC 06/12 PO 06/12 1901999 Aspirin Buffered 650 MG DAILY 06/13 1000 AC PO Azithromycin 500 MG Q24H 06/12 2359 AC 06/13 Sodium Chloride 250 ML IV 0105 Ceftazidime 0 .STK-MED ONE 06/12 1951 DC .ROUTE Ceftazidime 1,000 MG ONCE ONE 06/12 1830 DC 06/12 IV 06/12 1831 2000 Ceftriaxone Sodium 1,000 MG DAILY 06/13 1000 AC IV Dextrose/Sodium 1,000 ML Q13H 06/13 0945 UNVr Chloride IV Docusate Sodium 100 MG BID 06/12 2359 AC PO Furosemide 40 MG DAILY 06/13 1000 AC PO Heparin Sodium 8,500 UNIT BOLUS ONE 06/135 DC 06/13 (Porcine) IV 06/13 446 0516 Heparin Sodium 0 .STK-MED ONE 06/12 2028 DC (Porcine) .ROUTE Heparin Sodium 5,000 UNIT ONCE ONE 06/12 2000 DC 06/12 (Porcine) IV 06/12 2001 204 Heparin Sodium 25,000 UNIT Q24H 06/12 2000 AC 06/12 (Porcine) IV 204 Sodium Chloride 500 ML Influenza Virus 0.5 ML ONCE ONE 06/13 1000 AC Vaccine IM 06/13 1001 Insulin Aspart 0 TIDAC 06/13 0800 DC SC Insulin Aspart 0 TIDAC 06/13 0115 DC 06/13 SC 0122 Insulin Detemir 60 UNITS QPM 06/13 2200 CAN SC Insulin Detemir 40 UNITS QAM 06/13 1000 DC SC Insulin Detemir 40 UNITS BID 06/13 1000 UNVr SC Insulin Detemir 30 UNITS ONCE ONE 06/13 0115 DC 06/13 SC 06/13 0116 0121 Insulin Human Regular 0 Q6 06/13 1200 UNVr SC Ipratropium [place] 2.5 ML ONCE ONE 06/12 2115 DC 06/12 INH 06/12 Ipratropium [place] 2.5 ML ONCE ONE 06/12 1745 DC 06/12 INH 06/12 Methylprednisolone 0 .STK-MED ONE 06/12 1818 DC .ROUTE Methylprednisolone 125 MG ONCE ONE 06/12 1745 DC 06/12 IV 06/12 1746 183 Potassium Chloride 40 MEQ BID 06/129 AC 06/13 PO 0025 Vancomycin HCl 1,000 MG ONCE ONE 06/12 1830 DC 06/12 Sodium Chloride 250 ML IV 06/12 Last 24 Hrs of Lab/Drew Results Last 24 Hrs of Labs/Mics: Laboratory Tests 06/13/17 0932: APTT Pending 06/13/17 0330: Anion Gap 18 H, Estimated GFR 11 L, Glucose 333 H, Calcium 8.7, Phosphorus 8.0 H, Magnesium 2.1, Total Bilirubin 0.3, AST 30, ALT 46, Troponin I 0.18 *H, Albumin 2.5 L, APTT 34, CBC w Diff MAN DIFF ORDERED, RBC 3.14 L, MCV 97.2, MCH 32.6 H, RDW 14.3, MPV 6.5 L, Gran % 98.1 H, Lymphocytes % 1.2 L, Monocytes % 0.7 L, Eosinophils % 0, Basophils % 0, Absolute Granulocytes 44.0 H, Absolute Lymphocytes 0.5 L, Absolute Monocytes 0.3, Absolute Eosinophils 0, Absolute Basophils 0, Platelet Estimate INCREASED, Polychromasia 1+, Hypochromic- Microcytic 1+, Poikilocytosis 1+, PUBS MCHC 33.6 06/12/172209: Troponin I 0.25 *H 06/12/172119: pH 7.26 *L, pCO2 40, pO2 77 L, HCO3 17 L, ABG O2 Sat (Measured) 92.0 L, P-50 (Temp Corrected) N, Carboxyhemoglobin 0.7 L, O2 Concentration % 6L, Temperature 99.3, O2 Delivery Method NC, Phlebotomy Draw Site RIGHT RADIAL 06/12/172030: Lactic Acid Cancelled 06/12/17 184: Urine Color YEL, Urine Clarity CLDY H, Urine pH 6.0, Ur Specific [place] 1.020, Urine Protein 100 H, Urine Ketones NEG, Urine Nitrite POS H, Urine Bilirubin NEG, Urine Urobilinogen 0.2, Ur Leukocyte Esterase MOD H, Ur Microscopic SEDIMENT EXAMINED, Urine WBC > 75 H, Ur Epithelial Cells MANY H, Urine Bacteria MANY H, Micro UA Comment MORE INFO: H, Urine Hemoglobin MOD H, Urine Glucose 500 H 06/12/17 1734: Anion Gap 18 H, Estimated GFR 12 L, BUN/Creatinine Ratio 17.6, Glucose 252 H, Lactic Acid 1.6, Calcium 9.1, Magnesium 1.9, Total Bilirubin 0.4, AST 42 H, ALT 52, Alkaline Phosphatase 243 H, Troponin I 0.23 *H, Oom-F-Pcbndmvukfz Pept 2520 H, Total Protein 6.8, Albumin 2.9 L, Globulin 3.9, Albumin/Globulin Ratio 0.7 L, PT 13.9 H, INR 1.33 H, APTT 29, D-Dimer High Sensitivty 3896 H, CBC w Diff MAN DIFF ORDERED, RBC 3.68 L, MCV 96.7, MCH 32.3 H, RDW 13.9, MPV 6.4 L, Gran % 96.8 H, Lymphocytes % 1.6 L, Monocytes % 1.6 L, Eosinophils % 0, Basophils % 0, Absolute Granulocytes 45.9 H, Segmented Neutrophils 93 H, Band Neutrophils 5, Absolute Lymphocytes 0.8 L, Monocytes 2, Absolute Monocytes 0.8 H, Absolute Eosinophils 0, Absolute Basophils 0, Platelet Estimate INCREASED, Normocytic RBCs VERIFIED, Normochromic RBCs VERIFIED, PUBS MCHC 33.3 Microbiology 06/12 2300 UPPER RESP: Surveillance Culture - RECD 06/12 2300 GI: Surveillance Culture - RECD 06/12 2242 URINE ROUT: Legionella Antigen - COLB 06/12 2242 URINE ROUT: Streptococcus pneumoniae Antigen (M - COLB 06/12 2242 NASOPHARYN: Influenza Virus A & B Rapid Smear - COLB 06/12 2115 LOWER RESP: Respiratory Culture - CAN Cancelled: NUMBER OF SQUAMOUS CELLS INDICATES POOR QUALITY SPECIMEN 06/12 2115 LOWER RESP: Gram Stain - CAN Cancelled: NUMBER OF SQUAMOUS CELLS INDICATES POOR QUALITY SPECIMEN 06/12 1933 BLOOD: Blood Culture - WKST 06/120 BLOOD: Blood Culture - WKST 06/12 1841 URINE ROUT: Urine Culture - RES STAPH AUREUS 06/12 1827 UPPER RESP: Upper Respiratory Culture - COLB Assessment/Plan Assessment: 61-year-old woman, current smoker with a history of COPD, diabetes type 2 with diabetic neuropathy, left leg DVT status post IVC filter, chronic kidney disease , neuropathy and peripheral vascular disease, status post left BKA and amputations of the right first and third toes, last admitted to [facility] in September 2016 for cellulitis treated with cefazolin and discharged on Keflex, comes for evaluation of chest pain of 4 days' duration associated with shortness of breath. Labs revealed white blood cell count of 47,000, with 93 segs, bands, BUN/ creatinine 65 and 3.7, alkaline phosphatase 243, AST/ALT 42 and 52, troponin 0.23, proBNP 2520, INR 1.33 ABG 7.26/ 40/77 on 6 L/m. UA than 75 WBCs. ED EKG: Sinus tachycardia, right bundle branch block and left anterior fascicular block, LVH with lateral ST depressions. Chest x-ray revealed an opacity in the right hemithorax. Doppler:, thrombus is seen within the greater saphenous vein of the proximal thigh, extending to the saphenofemoral junction but not involving the femoral vein. Assessment and plan #1 Acute hypoxic respiratory failure likely secondary to community-acquired pneumonia/empyema Patient presented with pleuritic chest pain, leukocytosis with bandemia and evidence of opacity in the right hemithorax? Pneumonia+ pleural effusion? Empyema.Patient received IV Solu-Medrol in the ED along with 1 dose of Vanco and ceftaz and was started on IV azithromycin and ceftriaxone -White count still continues to be high. Patient afebrile overnight. -TRC nebs [id number]. Oxygen as needed, keep saturations above 92% -Continue gentle hydration with D5 half normal at 75 cc an hour. -Plan to do a CT chest abdomen and pelvis to locate source of infection. Ultrasound right chest if unable to do the CT chest(as patient unable to lie down flat) -Plan to do a thoracentesis/chest tube if tappable pleural effusion/empyema. IV heparin would be stopped 4 hours prior to the procedure. -Pancultures sent,urine culture growing staph aureus. -Urine strep and Legionella pending. -Plan to start patient on Unasyn 3 g IV every 8 hours. We will discontinue azithromycin and ceftriaxone. -Random Vanco levels on June 14. -ID consult appreciated #2 Pleuritic chest pain with positive troponins: Patient had some new EKG changes. Chest pain was mostly pleuritic. Troponins trended down. Likely type II IA in the setting of hypoxic respiratory failure. -Cardiology was informed by ED and patient was started on IV heparin. -Troponins have trended down -We will get an echocardiogram. -Cardiology consult appreciated #3 Urinary tract infection: Dirty urine, cultures positive for staph aureus -Patient is on Unasyn currently for empyema -ID on board. #4 Superficial thrombus of the greater saphenous vein -Patient is on IV heparin. -VQ scan on Thursday(no CTA given her acute kidney injury) to rule out PE #5 Insulin-dependent diabetes mellitus: Sugars in 300s. -3 times a day Accu-Cheks -NovoLog sliding scale -Levemir 40 units twice a day -Endocrinology on board #6 elevated proBNP?: Elevated proBNP at 2590. No echo on record -We'll get echocardiogram to rule out heart failure. Patient does appear to have basal crackles and fluid overload on exam. -Cardiology consult appreciated -Guzman in, strict ins and outs -Daily weight checks. #7 Acute kidney injury on chronic kidney disease -Continue gentle hydration with IV fluids -Check a BEP in a.m. -Avoid nephrotoxins -Pain Control -Diabetic diet -DVT prophylaxis -Full code Problem List: 1. Amputated above knee 2. CHRONIC RENAL FAILURE 3. Diabetes mellitus type 2 4. Leukocytosis 5. Pneumonia 6. Elevated troponin Pain Ratin Pain Location: back pain Pain Goal: Pain 4 or less Pain Plan: oxycodone Tomorrow's Labs & Rationales: cbc bep
--- NOTE | 2017-06-13 10:57 | ULTRASOUND REPORT ---
EXAMINATION: US CHEST CLINICAL INFORMATION: 61-year-old female with shortness of breath and leukocytosis. Evaluate for empyema. COMPARISON: None TECHNIQUE: Sonographic imaging of the posterior right hemithorax was performed using a curved 5 MHz transducer. FINDINGS: The presented images demonstrate a small effusion of the visualized right posteroinferior hemithorax. There are scattered echoes and possible septations within the effusion. Given the history of leukocytosis, this is suspicious for empyema. Recommend correlation with findings on chest radiographs and/or chest CT. IMPRESSION: The right pleural effusion contains internal echoes and possible septa -- suspicious for empyema.
[2017-06-13 11:38] LABS: PTT 50 SEC (25-37)
[2017-06-13 15:54] VITALS: BP 138/68
--- NOTE | 2017-06-13 16:03 | Admission Certification ---
Admission Certification Certification Statement - As attending physician, I certify that at the time of - admission, based on clinical presentation, severity of - symptoms, need for further diagnostic testing and - therapeutic interventions, and risk of adverse outcomes - without in-hospital treatment, in my clinical assessment, - this patient requires an acute hospital stay for a minimum - of two nights or longer. I have also considered psychsocial - factors such as support system, advanced age, financial - issues, cognitive issues, and failed out-patient treatments, - past re-admission history, safety of patient, and lack of - compliance as applicable. Specific rationale supporting this admission is: Cough pneumonia pleural effusion, urinary tract infection leukocytosis right- sided chest pain
--- NOTE | 2017-06-13 16:06 | PN- Att Addend ---
Attending Addendum Attending Brief Note 61-year-old white female with many comorbidities and sometimes not compliant with her treatments, has been having cough and sputum for several weeks no fever no chills, in the last couple of days having some right-sided chest pain more shortness of breath and she stated she has not smoked for several weeks appreciate also bad she came to the emergency room for having evaluations have a chest x-ray CAT scan had all the cultures and urine, showing urinary tract infection and also shortly the lab called that she has positive blood cultures with a small gram-negative rads patient was seen by infectious diseases and antibiotics were adjusted patient was seen by endocrine to manage her diabetes issue will have another CAT scan the thoracentesis later on today it her white count was elevated on admission. Ocular little better this afternoon Laboratory Tests 06/13 06/13 06/12 0932 0330 2210 Chemistry Sodium (137 - 145 mmol/L) 136 L Potassium (3.5 - 5.1 mmol/L) 3.7 Chloride (98 - 107 mmol/L) 102 Carbon Dioxide (22 - 30 mmol/L) 17 L Anion Gap (5 - 16) 18 H BUN (7 - 17 mg/dL) 70 H Creatinine (0.5 - 1.0 mg/dL) 4.0 H Estimated GFR (>60 ml/min) 11 L Glucose (65 - 99 mg/dL) 333 H Calcium (8.4 - 10.2 mg/dL) 8.7 Phosphorus (2.5 - 4.5 mg/dL) 8.0 H Magnesium (1.6 - 2.3 mg/dL) 2.1 Total Bilirubin (0.2 - 1.3 mg/dL) 0.3 AST (14 - 36 U/L) 30 ALT (9 - 52 U/L) 46 Troponin I (< 0.11 ng/ml) 0.18 *H 0.25 *H Albumin (3.5 - 5.0 g/dL) 2.5 L Coagulation APTT (25 - 37 SEC) 50 H 34 Hematology CBC w Diff MAN DIFF ORDERED WBC (4.8 - 10.8 /CUMM) 44.9 *H RBC (4.20 - 5.40 /CUMM) 3.14 L Hgb (12.0 - 16.0 G/DL) 10.2 L Hct (37 - 47 %) 30.5 L MCV (81.0 - 99.0 FL) 97.2 MCH (27.0 - 31.0 PG) 32.6 H RDW (11.5 - 14.5 %) 14.3 Plt Count (130 - 400 /CUMM) 482 H MPV (7.4 - 10.4 FL) 6.5 L Gran % (42.2 - 75.2 %) 98.1 H Lymphocytes % (20.5 - 51.1 %) 1.2 L Monocytes % (1.7 - 9.3 %) 0.7 L Eosinophils % (0 - 5 %) 0 Basophils % (0.0 - 2.0 %) 0 Absolute Granulocytes (1.4 - 6.5 /CUMM) 44.0 H Absolute Lymphocytes (1.2 - 3.4 /CUMM) 0.5 L Absolute Monocytes (0.10 - 0.60 /CUMM) 0.3 Absolute Eosinophils (0.0 - 0.7 /CUMM) 0 Absolute Basophils (0.0 - 0.2 /CUMM) 0 Platelet Estimate (ADEQUATE) INCREASED Polychromasia 1+ Hypochromic-Microcytic 1+ Poikilocytosis 1+ PUBS MCHC (33.0 - 37.0 G/DL) 33.6 06/12 Blood Gas pH (7.35 - 7.45 PH) 7.26 *L pCO2 (35 - 45 TORR) 40 pO2 (80 - 100 TORR) 77 L HCO3 (21 - 28 MEQ/L) 17 L ABG O2 Sat (Measured) (>96.0 %) 92.0 L P-50 (Temp Corrected) N Carboxyhemoglobin (1.5 - 5.0 %) 0.7 L O2 Concentration % 6L Temperature (97.0 - 100.0 FARH) 99.3 O2 Delivery Method NC Chemistry Lactic Acid Cancelled Miscellaneous Phlebotomy Draw Site RIGHT RADIAL 06/12 06/12 0201 1734 Chemistry Sodium (137 - 145 mmol/L) 134 L Potassium (3.5 - 5.1 mmol/L) 3.0 L Chloride (98 - 107 mmol/L) 97 L Carbon Dioxide (22 - 30 mmol/L) 20 L Anion Gap (5 - 16) 18 H BUN (7 - 17 mg/dL) 65 H Creatinine (0.5 - 1.0 mg/dL) 3.7 H Estimated GFR (>60 ml/min) 12 L BUN/Creatinine Ratio (7 - 25 %) 17.6 Glucose (65 - 99 mg/dL) 252 H Lactic Acid (0.7 - 2.1 mmol/L) 1.6 Calcium (8.4 - 10.2 mg/dL) 9.1 Magnesium (1.6 - 2.3 mg/dL) 1.9 Total Bilirubin (0.2 - 1.3 mg/dL) 0.4 AST (14 - 36 U/L) 42 H ALT (9 - 52 U/L) 52 Alkaline Phosphatase (<127 U/L) 243 H Troponin I (< 0.11 ng/ml) 0.23 *H [id number] Pept (<125 pg/mL) 2520 H Total Protein (6.3 - 8.2 g/dL) 6.8 Albumin (3.5 - 5.0 g/dL) 2.9 L Globulin (1.9 - 4.2 gm/dL) 3.9 Albumin/Globulin Ratio (1.1 - 2.2 %) 0.7 L Coagulation PT (9.4 - 12.5 SEC) 13.9 H INR (0.90 - 1.19) 1.33 H APTT (25 - 37 SEC) 29 D-Dimer High Sensitivty (0 - 243 ng/ml) 3896 H Hematology CBC w Diff MAN DIFF ORDERED WBC (4.8 - 10.8 /CUMM) 47.4 *H RBC (4.20 - 5.40 /CUMM) 3.68 L Hgb (12.0 - 16.0 G/DL) 11.9 L Hct (37 - 47 %) 35.5 L MCV (81.0 - 99.0 FL) 96.7 MCH (27.0 - 31.0 PG) 32.3 H RDW (11.5 - 14.5 %) 13.9 Plt Count (130 - 400 /CUMM) 547 H MPV (7.4 - 10.4 FL) 6.4 L Gran % (42.2 - 75.2 %) 96.8 H Lymphocytes % (20.5 - 51.1 %) 1.6 L Monocytes % (1.7 - 9.3 %) 1.6 L Eosinophils % (0 - 5 %) 0 Basophils % (0.0 - 2.0 %) 0 Absolute Granulocytes (1.4 - 6.5 /CUMM) 45.9 H Segmented Neutrophils (42.2 - 75.2 %) 93 H Band Neutrophils (0.0 - 5.0 %) 5 Absolute Lymphocytes (1.2 - 3.4 /CUMM) 0.8 L Monocytes (1.7 - 9.3 %) 2 Absolute Monocytes (0.10 - 0.60 /CUMM) 0.8 H Absolute Eosinophils (0.0 - 0.7 /CUMM) 0 Absolute Basophils (0.0 - 0.2 /CUMM) 0 Platelet Estimate (ADEQUATE) INCREASED Normocytic RBCs VERIFIED Normochromic RBCs VERIFIED PUBS MCHC (33.0 - 37.0 G/DL) 33.3 Urines Urine Color (YEL,AMB,STR) YEL Urine Clarity (CLEAR) CLDY H Urine pH (5.0 - 8.0) 6.0 Ur Specific [place] (1.001 - 1.035) 1.020 Urine Protein (NEG,<30 MG/DL) 100 H Urine Ketones (NEG) NEG Urine Nitrite (NEG) POS H Urine Bilirubin (NEG) NEG Urine Urobilinogen (0.1 - 1.0 EU/dl) 0.2 Ur Leukocyte Esterase (NEG) MOD H Ur Microscopic SEDIMENT EXAMINED Urine WBC (0 - 2 /HPF) > 75 H Ur Epithelial Cells (NONE,FEW) MANY H Urine Bacteria (NEG/NONE) MANY H Micro UA Comment MORE INFO: H Urine Hemoglobin (NEG) MOD H Urine Glucose (N MG/DL) 500 H Her troponins are trending down patient also was seen by cardiology the patient is on IV heparin at this time.
--- NOTE | 2017-06-13 17:33 | CT SCAN REPORT ---
CLINICAL HISTORY: This patient is a 61-year-old woman morbidly obese with question of empyema. A drainage catheter is requested. PROCEDURES: 1. Limited CT of the chest. 2. Placement of a 12 Fr locking all-purpose drainage catheter into the right pleural space under CT-guidance. PHYSICIANS: Dr. Goel (attending). The attending radiologist was present during the procedure and related imaging, and reviewed the report. MEDICATIONS: 10 mL of 1% lidocaine SQ. COMPLICATIONS: None. ESTIMATED BLOOD LOSS: <5 mL SPECIMENS: Lightly blood-tinged mostly serous fluid. TOTAL DLP: 557 mGy-cm. PROCEDURE NOTE: Informed consent was obtained from the patient prior to the procedure. During this process, the procedure and potential alternatives were explained along with the intended outcome and benefits. The risks of the procedure, including the possibility of an unsuccessful procedure, as well as the risk of not doing the procedure, were discussed. The patient was given the opportunity to ask questions regarding the procedure and appeared competent to make decisions. A signed consent form documenting this discussion was placed in the medical record. A time-out procedure was performed. The patient was placed in the supine position on the CT table. A limited CT of the chest was performed to localize the loculated right pleural collection and choose appropriate needle access entry point and trajectory. The right lateral chest was prepped and draped in usual sterile fashion. The skin and subcutaneous tissues were anesthetized with lidocaine. The pleural space was over 10 cm in depth so I needed to use an 15 cm 18-gauge Saez Kassie needle. This was advanced under fluoroscopic guidance into the right pleural effusion. A 0.035 in Amplatz super stiff wire was advanced through the needle and coiled in the effusion. The needle was removed and dilated with 8, 10, and 12 Syrian fascial dilators and then a 12 Syrian locking drainage catheter was advanced over the wire. This hospital did not have a nonlocking catheter available. Catheter position within the effusion was confirmed by CT evaluation. The wire was removed from the catheter and the tip was coiled within the fluid collection, again confirmed by CT evaluation. The drain was sutured to skin with 2-0 silk suture, secured with a StatLock, and dressed with Tegaderms. The catheter was then opened to a closed chest drainage system. Labs were sent as requested by the ICU team. FINDINGS: Loculated right pleural effusion. Aspiration of slightly blood-tinged serous fluid. This was not grossly purulent by visible inspection. Successful placement of a 12 Syrian pigtail as right pleural chest tube. IMPRESSION: Successful CT-guided 12 Syrian pigtail catheter placement into the right pleural space for suspicion of empyema. The fluid was not grossly purulent. PLAN: 1. The patient was stable after the procedure and was transferred back to the ICU in stable condition. 2. Orders were written for -20 cm water low wall suction and a follow-up portable chest x-ray.
--- NOTE | 2017-06-13 18:17 | Event Note ---
Event Note Event Note: Patient got a right sided chest tube(pigtail catheter) today by IR around 4:30 PM. About 360ML of slightly blood-tinged serous fluid was removed. Patient remained hemodynamically stable after the procedure. Chest x-ray postprocedure was ordered. Chest tube is set up for low wall suction. All labs have been sent. Diet has been resumed and patient has been started on the NovoLog sliding scale. She has been downgraded to telemetry.
--- NOTE | 2017-06-13 18:43 | RADIOLOGY REPORT ---
EXAMINATION: XR PORTABLE CHEST CLINICAL INFORMATION: Redness of breath. Chest tube position. COMPARISON: CT chest 06/13/2017. Prior chest radiograph 11/19/2015. TECHNIQUE: Portable frontal view of the chest was obtained. FINDINGS: Right-sided chest tube projects over the right midlung field and appears in stable position from prior CT of the chest. There remains a moderate size right pleural effusion with right basilar atelectasis, although superimposed infiltrate would be difficult to exclude. The lungs are otherwise clear. No left pleural effusion. The cardiomediastinal silhouette and pulmonary vasculature are within normal limits. Osseous structures appear unremarkable. IMPRESSION: Stable position of right-sided chest tube overlying the mid right lung field. There remains a moderate size right pleural effusion and right basilar atelectasis. Superimposed infiltrate would be difficult to exclude.
[2017-06-13 21:00] VITALS: BP 108/70
[2017-06-14 03:35] LABS: ABSOLUTE BASOPHIL COUNT 0 /CUMM (0.0-0.2); ABSOLUTE EOSINOPHIL COUNT 0 /CUMM (0.0-0.7); ABSOLUTE GRANULOCYTE CT 41.8 /CUMM (1.4-6.5); ABSOLUTE LYMPH COUNT 0.6 /CUMM (1.2-3.4); ABSOLUTE MONOCYTE COUNT 1.2 /CUMM (0.10-0.60); BASOPHIL % 0 % (0.0-2.0); EOSINOPHIL % 0 % (0-5); GRANULOCYTE % 95.8 % (42.2-75.2); HEMATOCRIT 29.3 % (37-47); MEAN CORPUSCULAR HGB 32.3 PG (27.0-31.0); MEAN CORPUSCULAR HGB CONC 32.9 G/DL (33.0-37.0); MEAN CORPUSCULAR VOLUME 98.1 FL (81.0-99.0); MEAN PLATELET VOLUME 6.7 FL (7.4-10.4); PLATELET COUNT 508 /CUMM (130-400); RBC DISTRIBUTION WIDTH 14.2 % (11.5-14.5); RED BLOOD CELL CT 2.98 /CUMM (4.20-5.40)
[2017-06-14 03:38] LABS: PTT 36 SEC (25-37)
[2017-06-14 03:48] LABS: WHITE BLOOD CELL COUNT 43.7 /CUMM (4.8-10.8)
[2017-06-14 07:05] VITALS: BP 132/70
--- NOTE | 2017-06-14 09:38 | PN- Pulmonary ---
Subjective HPI/Critical Care Issues: Patient complaining of right-sided chest pain secondary to chest tube. This draining purulent serosanguineous fluid. Blood cultures are positive for gram- negative rods pulmonary thought to be a possible Haemophilus. There is MRSA in her urine. Objective Current Medications: Current Medications Sig/Suleman Start time Last Medication Dose Route Stop Time Status Admin Albuterol Sulfate 3 ML Q4P PRN 06/13 1130 AC INH Ampicillin Sodium/ 3,000 MG Q8H 06/13 1200 AC 06/14 Sulbactam Sodium IV 0416 Sodium Chloride 100 ML Aspirin Buffered 650 MG DAILY 06/13 1000 AC 06/14 PO 0819 Azithromycin 500 MG Q24H 06/12 2359 DC 06/13 Sodium Chloride 250 ML IV 0105 Ceftriaxone Sodium 1,000 MG DAILY 06/13 1000 DC IV Dextrose/Sodium 1,000 ML Q13H 06/13 0945 DC 06/13 Chloride IV 1221 Docusate Sodium 100 MG BID 06/12 2359 AC 06/14 PO 0819 Furosemide 40 MG DAILY 06/13 1000 AC 06/14 PO 0819 Heparin Sodium 8,513 UNIT BOLUS ONE 06/14 0430 DC 06/14 (Porcine) IV 06/14 0431 0645 Heparin Sodium 25,000 UNIT Q24H 06/13 2100 AC 06/13 (Porcine) IV 2108 Sodium Chloride 500 ML Heparin Sodium 25,000 UNIT Q24H 06/12 2000 DC 06/12 (Porcine) IV 2041 Sodium Chloride 500 ML Influenza Virus 0.5 ML ONCE ONE 06/13 1000 DC Vaccine IM 06/13 1001 Insulin Aspart 0 TIDAC 06/14 0800 AC 06/14 SC 0819 Insulin Detemir 40 UNITS BID 06/13 1000 AC 06/14 SC 0820 Insulin Human Regular 0 Q6 06/13 1200 DC 06/13 SC 1517 Lorazepam 1 MG ONCE ONE 06/13 1530 DC 06/13 IV 06/13 1531 1552 Oxycodone HCl 40 MG .STK-MED ONE 06/13 1222 DC PO 06/13 1223 Oxycodone HCl 20 MG Q12 PRN 06/13 1215 AC 06/14 PO 0819 Potassium Chloride 40 MEQ BID 06/12 2359 AC 06/14 PO 0819 Pregabalin 75 MG BID 06/13 2200 AC 06/14 PO 0819 Tiotropium [place] 1 PUF DAILY 06/14 1000 AC 06/14 INH 0820 Vital Signs & I&O Last 24 Hrs of Vitals and I&O: Vital Signs Date Time Temp Pulse Resp B/P B/P Pulse O2 O2 Flow FiO2 Mean Ox Delivery Rate 06/14 0705 97.9 65 20 132/70 96 06/14 0000 Nasal 6.0L Cannula 06/13 2100 97.2 62 12 108/70 95 Nasal 6.0L Cannula 06/13 2000 95 Nasal 6.0L Cannula 06/13 1554 98.2 68 14 138/68 96 Nasal 6.0L Cannula 06/13 1500 96 Nasal 6.0L Cannula 06/13 1200 96 Nasal 6.0L Cannula 06/13 1118 94 Nasal 6.0L Cannula 06/13 1114 Nasal 6.0L Cannula Intake & Output 06/14 1600 06/14 0800 06/14 0000 Intake Total 120 Output Total 350 960 Balance -350 -840 Intake, IV 120 Output, Chest 410 Tube Drainage Output, Urine 350 550 Since saturation 6 L 95% exam for chest shows diminished breath sounds over the right posterior chest cardiac exam shows a regular S1 and S2 without murmurs Impression/Plan Impression/Plan Impression/Plan: 61-year-old with right-sided empyema status post right chest drainage. Significance of urinary MRSA is unclear Recommendations: Patient will need follow-up CAT scan if there is residual fluid CT surgery consult for possible lytic therapy. Follow-up cultures and ID recommendations regarding treatment of urinary MRSA. Taper FiO2 his saturations allow.
--- NOTE | 2017-06-14 09:39 | PN- Diabetes ---
Assessment/Plan Assessment: The patient is lethargic this morning. She states she will eat her breakfast. She had a chest tube inserted yesterday. There is a small amount of drainage and the fluid may be loculated. The patient's fingerstick blood sugar this morning is 224. The patient is on Levemir 40 units twice a day as well as sliding scale NovoLog. Plan: Suggest continue Levemir 40 units twice a day. Adjust sliding-scale NovoLog before meals. Sliding scale NovoLog before meals should be 80-150 give 4 units NovoLog, 151-200 give 6 units NovoLog, 201-250 give 7 units NovoLog, 251-300 give 8 units NovoLog, 301-350 give 9 units NovoLog , 351-400 give 10 units NovoLog. A separate bedtime sliding scale should be written. Bedtime sliding-scale should be less than 250 give no insulin, 251-300 give 2 units NovoLog, 301-350 give 3 units NovoLog, 351-400 give 4 units NovoLog. Subjective Subjective: Feels tired Review of Systems Constitutional: Denies: chills, fever. Cardiovascular: Reports: chest pain (right chest). Gastrointestinal: Denies: abdominal pain. Skin: Reports: no symptoms. Objective Last 24 Hrs of Vital Signs/I&O Vital Signs Date Time Temp Pulse Resp B/P B/P Pulse O2 O2 Flow FiO2 Mean Ox Delivery Rate 06/14 0705 97.9 65 20 132/70 96 06/14 0000 Nasal 6.0L Cannula 06/13 2100 97.2 62 12 108/70 95 Nasal 6.0L Cannula 06/13 2000 95 Nasal 6.0L Cannula 06/13 1554 98.2 68 14 138/68 96 Nasal 6.0L Cannula 06/13 1500 96 Nasal 6.0L Cannula 06/13 1200 96 Nasal 6.0L Cannula 06/13 1118 94 Nasal 6.0L Cannula 06/13 1114 Nasal 6.0L Cannula Intake & Output 06/14 1600 06/14 0800 06/14 0000 Intake Total 120 Output Total 350 960 Balance -350 -840 Intake, IV 120 Output, Chest 410 Tube Drainage Output, Urine 350 550 Vital Signs Date Time Temp Pulse Resp B/P B/P Pulse O2 O2 Flow FiO2 Mean Ox Delivery Rate 06/14 0705 97.9 65 20 132/70 96 06/14 0000 Nasal 6.0L Cannula 06/13 2100 97.2 62 12 108/70 95 Nasal 6.0L Cannula 06/13 2000 95 Nasal 6.0L Cannula 06/13 1554 98.2 68 14 138/68 96 Nasal 6.0L Cannula 06/13 1500 96 Nasal 6.0L Cannula 06/13 1200 96 Nasal 6.0L Cannula 06/13 1118 94 Nasal 6.0L Cannula 06/13 1114 Nasal 6.0L Cannula Intake & Output 06/14 1600 06/14 0800 06/14 0000 Intake Total 120 Output Total 350 960 Balance -350 -840 Intake, IV 120 Output, Chest 410 Tube Drainage Output, Urine 350 550 Physical Exam General Appearance: lethargic Head: normal appearance Neck: normal inspection Respiratory: decreased breath sounds (right lung) Cardiovascular: regular rate/rhythm Extremities: left BKA Current Medications: Current Medications Sig/Suleman Start time Last Medication Dose Route Stop Time Status Admin Albuterol Sulfate 3 ML Q4P PRN 06/13 1130 AC INH Ampicillin Sodium/ 3,000 MG Q8H 06/13 1200 AC 06/14 Sulbactam Sodium IV 0416 Sodium Chloride 100 ML Aspirin Buffered 650 MG DAILY 06/13 1000 AC 06/14 PO 0819 Azithromycin 500 MG Q24H 06/12 2359 DC 06/13 Sodium Chloride 250 ML IV 0105 Ceftriaxone Sodium 1,000 MG DAILY 06/13 1000 DC IV Dextrose/Sodium 1,000 ML Q13H 06/13 0945 DC 06/13 Chloride IV 1221 Docusate Sodium 100 MG BID 06/12 2359 AC 06/14 PO 0819 Furosemide 40 MG DAILY 06/13 1000 AC 06/14 PO 0819 Heparin Sodium 8,513 UNIT BOLUS ONE 06/14 0430 DC 06/14 (Porcine) IV 06/14 0431 0645 Heparin Sodium 25,000 UNIT Q24H 06/13 2100 AC 06/13 (Porcine) IV 2108 Sodium Chloride 500 ML Heparin Sodium 25,000 UNIT Q24H 06/12 2000 DC 06/12 (Porcine) IV 2041 Sodium Chloride 500 ML Influenza Virus 0.5 ML ONCE ONE 06/13 1000 DC Vaccine IM 06/13 1001 Insulin Aspart 0 TIDAC 06/14 0800 AC 06/14 SC 0819 Insulin Detemir 40 UNITS BID 06/13 1000 AC 06/14 SC 0820 Insulin Human Regular 0 Q6 06/13 1200 DC 06/13 SC 1517 Lorazepam 1 MG ONCE ONE 06/13 1530 DC 06/13 IV 06/13 1531 1552 Oxycodone HCl 40 MG .STK-MED ONE 06/13 1222 DC PO 06/13 1223 Oxycodone HCl 20 MG Q12 PRN 06/13 1215 AC 06/14 PO 0819 Potassium Chloride 40 MEQ BID 06/12 2359 AC 06/14 PO 0819 Pregabalin 75 MG BID 06/13 2200 AC 06/14 PO 0819 Tiotropium [place] 1 PUF DAILY 06/14 1000 AC 06/14 INH 0820 Findings Pertinent Lab/Drew Results: Laboratory Tests 06/14 06/14 06/13 0255 0255 1728 Chemistry Sodium (137 - 145 mmol/L) 136 L Cancelled Potassium (3.5 - 5.1 mmol/L) 4.2 Cancelled Chloride (98 - 107 mmol/L) 104 Cancelled Carbon Dioxide (22 - 30 mmol/L) 19 L Cancelled Anion Gap (5 - 16) 13 Cancelled BUN (7 - 17 mg/dL) 81 H Cancelled Creatinine (0.5 - 1.0 mg/dL) 4.3 H Cancelled Estimated GFR (>60 ml/min) 10 L Glucose (65 - 99 mg/dL) 266 H Cancelled Calcium (8.4 - 10.2 mg/dL) 8.8 Cancelled Phosphorus (2.5 - 4.5 mg/dL) 7.8 H Cancelled Magnesium (1.6 - 2.3 mg/dL) 2.6 H Cancelled Total Bilirubin (0.2 - 1.3 mg/dL) 0.2 Cancelled AST (14 - 36 U/L) 24 Cancelled ALT (9 - 52 U/L) 42 Cancelled Albumin (3.5 - 5.0 g/dL) 2.5 L Cancelled Coagulation APTT (25 - 37 SEC) 36 Hematology CBC w Diff MAN DIFF ORDERED WBC (4.8 - 10.8 /CUMM) 43.7 *H RBC (4.20 - 5.40 /CUMM) 2.98 L Hgb (12.0 - 16.0 G/DL) 9.6 L Hct (37 - 47 %) 29.3 L MCV (81.0 - 99.0 FL) 98.1 MCH (27.0 - 31.0 PG) 32.3 H RDW (11.5 - 14.5 %) 14.2 Plt Count (130 - 400 /CUMM) 508 H MPV (7.4 - 10.4 FL) 6.7 L Gran % (42.2 - 75.2 %) 95.8 H Lymphocytes % (20.5 - 51.1 %) 1.4 L Monocytes % (1.7 - 9.3 %) 2.8 Eosinophils % (0 - 5 %) 0 Basophils % (0.0 - 2.0 %) 0 Absolute Granulocytes (1.4 - 6.5 /CUMM) 41.8 H Segmented Neutrophils (42.2 - 75.2 %) 94 H Band Neutrophils (0.0 - 5.0 %) 1 Absolute Lymphocytes (1.2 - 3.4 /CUMM) 0.6 L Lymphocytes (20.5 - 51.1 %) 2 L Monocytes (1.7 - 9.3 %) 3 Absolute Monocytes (0.10 - 0.60 /CUMM) 1.2 H Absolute Eosinophils (0.0 - 0.7 /CUMM) 0 Absolute Basophils (0.0 - 0.2 /CUMM) 0 Platelet Estimate (ADEQUATE) INCREASED Polychromasia 1+ Hypochromic-Microcytic 1+ Anisocytosis 1+ PUBS MCHC (33.0 - 37.0 G/DL) 32.9 L Other Body Source Fluid WBC (0 - 5 /CUMM) 29442 H Fld Total RBCs Counted (0 /CUMM) 96374 H Toxicology Random Vancomycin (ug/ml) 8.5 Cancelled 06/13 06/13 1728 1727 Hematology % Normal PMNs (%) 95 [facility] (%) Other Body Source Fluid Glucose (mg/dL) 99 Fluid Total Protein (g/dL) 4.6 Fluid Albumin (g/dL) 1.9 Fluid LDH (U/L) 3819 Fluid Amylase (U/L) < 30 Pleural pH (PH) 6.40
--- NOTE | 2017-06-14 09:55 | Cons- Cardiology ---
General Information and HPI Consulting Request Date of Consult: 06/14/17 Requested By: Wallace Hays MD History of Present Illness: Dena is a 61 year old female with history of diabetes, peripheral vascular disease, DVT s/p IVC filter, tobacco abuse and COPD. She also carries a family history of premature coronary artery disease. Dena was admitted with complaints of a cough productive of yellow sputum accompanies by subjective fever and chills. She has a generalized malaise. In addition, this patient has a right chest discomfort that is pleuritic and shortness of breath with orthopnea. She has noted discomfort in her legs. Finally, this patient has urinary frequency with foul smelling urine. She denies precordial chest pain, lightheadedness or palpitations. In the hospital this patient was noted to have a highly elevated WBC count and an empyema was discovered. She is now s/p chest tube placement. Her troponin is also mildly elevated. Although a CT angiogram has been deferred due to her renal insufficiency, an ultrasound of her lower extremities showed evidence of thormbosis without findings of a deep venous thrombosis. Allergies/Medications Allergies: Coded Allergies: NO KNOWN ALLERGIES (09/21/15) Home Med List: Alprazolam 0.25 MG TABLET 1 TAB PO BIDP PRN ANXIETY (Reported) Aspirin (Ecotrin*) 325 MG TABLET.DR 2 TAB PO DAILY HEART/BLOOD (Reported) Citalopram Hydrobromide (Citalopram HBr) 20 MG TABLET 1 TAB PO DAILY MENTAL HEALTH (Reported) Cyanocobalamin (Vitamin B-12) (B-12) 1,000 MCG TABLET 1 TAB PO DAILY SUPPLEMENT (Reported) Docusate Sodium (Colace) 100 MG CAPSULE 1 CAP PO BID STOOL SOFTENER (Reported ) Ergocalciferol (Vitamin D2) (Vitamin D2) 50,000 UNIT CAPSULE 1 CAP PO Q2W SUPPLEMENT (Reported) Furosemide 40 MG TABLET 40 MG PO DAILY DIURETIC (Reported) Insulin Aspart, Recombinant (Novolog Flexpen) 100 UNIT/ML INSULN.PEN DM ( Reported) Insulin Detemir (Levemir) 100 UNIT/ML VIAL 40 UNITS SC QAM DM (Reported) Insulin Detemir (Levemir) 100 UNIT/ML VIAL 60 UNITS SC QPM DM (Reported) Linagliptin (Tradjenta) 5 MG TABLET 1 TAB PO DAILY DM (Reported) Oxycodone HCl (Oxycontin) 80 MG TAB.ER.12H 1 TAB PO TID PRN PAIN (Reported) Pregabalin (Lyrica) 150 MG CAPSULE 1 CAP PO DAILY NERVE PAIN (Reported) Tiotropium [place] (Spiriva) 18 MCG CAP.W.DEV 1 CAP INH DAILY COPD (Reported) Review of Systems Review of Systems: A review of systems is unremarkable except for the above. 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 Father: [place] in his 50's Psychosocial History Where Do You Live? Home Who Do You Live With? child Services at Home: Nursing Smoking Status: Current Everyday Smoker ETOH Use: denies use Illicit Drug Use: denies illicit drug use Functional Ability ADLs Independent: dressing, eating, toileting, bathing. Ambulation: cane IADLs Needs Assist: shopping, housework. Exam & Diagnostic Data Vital Signs and I&O Vital Signs Date Time Temp Pulse Resp B/P B/P Pulse O2 O2 Flow FiO2 Mean Ox Delivery Rate 06/14 0705 97.9 65 20 132/70 96 06/14 0000 Nasal 6.0L Cannula 06/13 2100 97.2 62 12 108/70 95 Nasal 6.0L Cannula 06/13 2000 95 Nasal 6.0L Cannula 06/13 1554 98.2 68 14 138/68 96 Nasal 6.0L Cannula 06/13 1500 96 Nasal 6.0L Cannula 06/13 1200 96 Nasal 6.0L Cannula 06/13 1118 94 Nasal 6.0L Cannula 06/13 1114 Nasal 6.0L Cannula Intake & Output 06/14 1600 06/14 0800 06/14 0000 06/13 1600 06/13 0800 06/13 0000 Intake Total 120 745 706 Output Total 350 960 750 850 Balance -350 -840 -5 -144 Intake, IV 120 445 526 Intake, Oral 300 180 Number 0 Bowel Movements Output, Chest 410 Tube Drainage Output, Urine 350 550 750 850 Patient 250 lb Weight Weight Bed scale Measurement Method Physical Exam: General: WD/obese female in NAD; alert and oriented x 3 HEENT: NC/AT, PERRL, EOMI Neck: no JVD, no carotid bruit Heart: RRR w/o murmur Lungs: no crackles or wheezing, chest tube on right Abdomen: soft, obese, NT, +ve bowel sounds Extremities: no edema on right, Left AKA Diagnostic Data EKG Results sinus rhythm with RBBB, LAFB and PAC's Assessment/Plan Assessment/Plan * This obese and inactive female has evidence of lower extremity thrombosis without findings of a true DVT. I suspect that her small rise in cardiac enzymes is related to a PE. Documentation of this occurrence may be difficult due to out inability to obtain a CT angiogram in the setting of renal insufficiency but her low O2 saturation, shortness of breath and pleuritic pain are consistent with this diagnosis as is her diagnosis of empyema, of course. I think it is prudent to pursue anticoagulation in this patient. She does have an IVC filter which helps but is not 100% reliable for preventing a PE and it does not help with lower extremity thrombosis. * In consideration of the patient's multiple risk factors for coronary artery disease myocardial ischemia related to increased myocardial demand cannot be 100 % excluded and the patient should have risk stratification with a stress test at some point in time. In the meantime, continue IV heparin and aspirin. Add a statin. If precordial chest pain then begin NTG paste 1/2 inch Q 6 hours. * Obtain an echocardiogram. Consult Acknowledgment - Thank you for your consult request.
[2017-06-14 12:32] LABS: PTT 90 SEC (25-37)
--- NOTE | 2017-06-14 13:01 | PN- Att Addend ---
Attending Addendum Attending Brief Note Patient uncomfortable in bed. Had her thoracentesis yesterday afternoon has the chest tube in place Her vital signs are stable has no fever. No new changes on physical her white count is still very high. Steven Munoz MD adjusted to antibiotics to cover all the different bacteria is isolated continue monitoring labs blood sugars. Intake & Output 06/14 1600 06/14 0400 06/13 1600 06/13 0400 06/12 1600 06/12 0400 Intake Total 120 1451 Output Total 546 746 2276 Balance -350 -840 -149 Intake, IV 120 971 Intake, Oral 480 Number 0 Bowel Movements Output, Chest 410 Tube Drainage Output, Urine 546 182 3919 Patient 250 lb Weight Weight Bed scale Measurement Method Current Medications Sig/Suleman Start time Last Medication Dose Route Stop Time Status Admin Albuterol Sulfate 3 ML Q4P PRN 06/13 1130 AC INH Ampicillin Sodium/ 3,000 MG Q8H 06/13 1200 AC 06/14 Sulbactam Sodium IV 1054 Sodium Chloride 100 ML Aspirin Buffered 650 MG DAILY 06/13 1000 AC 06/14 PO 0819 Dextrose/Sodium 1,000 ML Q13H 06/13 0945 DC 06/13 Chloride IV 1221 Docusate Sodium 100 MG BID 06/12 2359 AC 06/14 PO 0819 Furosemide 40 MG DAILY 06/13 1000 AC 06/14 PO 0819 Heparin Sodium 8,513 UNIT BOLUS ONE 06/14 0430 DC 06/14 (Porcine) IV 06/14 0431 0645 Heparin Sodium 25,000 UNIT Q24H 06/13 2100 AC 06/14 (Porcine) IV 1054 Sodium Chloride 500 ML Insulin Aspart 0 TIDAC 06/14 0800 AC 06/14 SC 1204 Insulin Detemir 40 UNITS BID 06/13 1000 AC 06/14 SC 0820 Insulin Human Regular 0 Q6 06/13 1200 DC 06/13 SC 1517 Lorazepam 1 MG ONCE ONE 06/13 1530 DC 06/13 IV 06/13 1531 1552 Oxycodone HCl 20 MG Q12 PRN 06/13 1215 AC 06/14 PO 0819 Potassium Chloride 40 MEQ BID 06/12 2359 AC 06/14 PO 0819 Pregabalin 75 MG BID 06/13 2200 AC 06/14 PO 0819 Tiotropium [place] 1 PUF DAILY 06/14 1000 AC 06/14 INH 0820 Vancomycin HCl 1,000 MG ONCE ONE 06/14 1045 DC 06/14 Sodium Chloride 250 ML IV 06/14 1144 1203 Laboratory Tests 06/14/17 1044: APTT 90 H 06/14/17 0255: Anion Gap 13, Estimated GFR 10 L, Glucose 266 H, Calcium 8.8, Phosphorus 7.8 H, Magnesium 2.6 H, Total Bilirubin 0.2, AST 24, ALT 42, Albumin 2.5 L, Random Vancomycin 8.5 06/14/17 0255: Sodium Cancelled, Potassium Cancelled, Chloride Cancelled, Carbon Dioxide Cancelled, Anion Gap Cancelled, BUN Cancelled, Creatinine Cancelled, Glucose Cancelled, Calcium Cancelled, Phosphorus Cancelled, Magnesium Cancelled, Total Bilirubin Cancelled, AST Cancelled, ALT Cancelled, Albumin Cancelled, APTT 36, CBC w Diff MAN DIFF ORDERED, RBC 2.98 L, MCV 98.1, MCH 32.3 H, RDW 14.2, MPV 6.7 L, Gran % 95.8 H, Lymphocytes % 1.4 L, Monocytes % 2.8, Eosinophils % 0, Basophils % 0, Absolute Granulocytes 41.8 H, Segmented Neutrophils 94 H, Band Neutrophils 1, Absolute Lymphocytes 0.6 L, Lymphocytes 2 L, Monocytes 3, Absolute Monocytes 1.2 H, Absolute Eosinophils 0, Absolute Basophils 0, Platelet Estimate INCREASED, Polychromasia 1+, Hypochromic-Microcytic 1+, Anisocytosis 1+, PUBS MCHC 32.9 L, Random Vancomycin Cancelled 06/13/17 1728: Fluid WBC 46952 H, Fld Total RBCs Counted 13196 H 06/13/17 1728: % Normal PMNs 95, Misc Hematology Test , Fluid Glucose 99, Fluid Total Protein 4.6, Fluid Albumin 1.9, Fluid LDH 3819, Fluid Amylase < 30 06/13/17 1727: Pleural pH 6.40 06/13/17 0932: APTT 50 H 06/13/17 0330: Anion Gap 18 H, Estimated GFR 11 L, Glucose 333 H, Calcium 8.7, Phosphorus 8.0 H, Magnesium 2.1, Total Bilirubin 0.3, AST 30, ALT 46, Troponin I 0.18 *H, Albumin 2.5 L, APTT 34, CBC w Diff MAN DIFF ORDERED, RBC 3.14 L, MCV 97.2, MCH 32.6 H, RDW 14.3, MPV 6.5 L, Gran % 98.1 H, Lymphocytes % 1.2 L, Monocytes % 0.7 L, Eosinophils % 0, Basophils % 0, Absolute Granulocytes 44.0 H, Absolute Lymphocytes 0.5 L, Absolute Monocytes 0.3, Absolute Eosinophils 0, Absolute Basophils 0, Platelet Estimate INCREASED, Polychromasia 1+, Hypochromic- Microcytic 1+, Poikilocytosis 1+, PUBS MCHC 33.6 06/12/170: Troponin I 0.25 *H 06/12/172119: pH 7.26 *L, pCO2 40, pO2 77 L, HCO3 17 L, ABG O2 Sat (Measured) 92.0 L, P-50 (Temp Corrected) N, Carboxyhemoglobin 0.7 L, O2 Concentration % 6L, Temperature 99.3, O2 Delivery Method NC, Phlebotomy Draw Site RIGHT RADIAL 06/12/172030: Lactic Acid Cancelled 06/12/17 1841: Urine Color YEL, Urine Clarity CLDY H, Urine pH 6.0, Ur Specific [place] 1.020, Urine Protein 100 H, Urine Ketones NEG, Urine Nitrite POS H, Urine Bilirubin NEG, Urine Urobilinogen 0.2, Ur Leukocyte Esterase MOD H, Ur Microscopic SEDIMENT EXAMINED, Urine WBC > 75 H, Ur Epithelial Cells MANY H, Urine Bacteria MANY H, Micro UA Comment MORE INFO: H, Urine Hemoglobin MOD H, Urine Glucose 500 H 06/12/17 1734: Anion Gap 18 H, Estimated GFR 12 L, BUN/Creatinine Ratio 17.6, Glucose 252 H, Lactic Acid 1.6, Calcium 9.1, Magnesium 1.9, Total Bilirubin 0.4, AST 42 H, ALT 52, Alkaline Phosphatase 243 H, Troponin I 0.23 *H, Tbv-P-Fzngpetyyny Pept 2520 H, Total Protein 6.8, Albumin 2.9 L, Globulin 3.9, Albumin/Globulin Ratio 0.7 L, PT 13.9 H, INR 1.33 H, APTT 29, D-Dimer High Sensitivty 3896 H, CBC w Diff MAN DIFF ORDERED, RBC 3.68 L, MCV 96.7, MCH 32.3 H, RDW 13.9, MPV 6.4 L, Gran % 96.8 H, Lymphocytes % 1.6 L, Monocytes % 1.6 L, Eosinophils % 0, Basophils % 0, Absolute Granulocytes 45.9 H, Segmented Neutrophils 93 H, Band Neutrophils 5, Absolute Lymphocytes 0.8 L, Monocytes 2, Absolute Monocytes 0.8 H, Absolute Eosinophils 0, Absolute Basophils 0, Platelet Estimate INCREASED, Normocytic RBCs VERIFIED, Normochromic RBCs VERIFIED, PUBS MCHC 33.3 Microbiology 06/13 172 BODY FLUID: Body Fluid Culture - RES 06/13 172 BODY FLUID: Gram Stain - RES 06/13 1030 URINE ROUT: Urine Culture - RES STAPH AUREUS 06/12 2300 UPPER RESP: Surveillance Culture - COMP METH RESIST STAPH AUREUS 06/12 2300 GI: Surveillance Culture - COMP 06/12 2242 NASOPHARYN: Influenza Virus A & B Rapid Smear - CAN Cancelled: SPECIMEN NOT RECEIVED IN LABORATORY 06/12 2115 LOWER RESP: Respiratory Culture - CAN Cancelled: NUMBER OF SQUAMOUS CELLS INDICATES POOR QUALITY SPECIMEN 06/12 2115 LOWER RESP: Gram Stain - CAN Cancelled: NUMBER OF SQUAMOUS CELLS INDICATES POOR QUALITY SPECIMEN 06/12 1933 BLOOD: Blood Culture - RES HEMOPHILUS SPECIES 06/12 1910 BLOOD: Blood Culture - RES 06/12 1841 URINE ROUT: Legionella Antigen - COMP 06/12 1841 URINE ROUT: Streptococcus pneumoniae Antigen (M - COMP 06/12 1841 URINE ROUT: Urine Culture - COMP METH RESIST STAPH AUREUS 06/12 1827 UPPER RESP: Upper Respiratory Culture - CAN Cancelled: SPECIMEN NOT RECEIVED IN LABORATORY Microbiology 06/13 1728 BODY FLUID: Body Fluid Culture - RES 06/13 1728 BODY FLUID: Gram Stain - RES 06/13 1030 URINE ROUT: Urine Culture - RES STAPH AUREUS 06/12 2300 UPPER RESP: Surveillance Culture - COMP METH RESIST STAPH AUREUS 06/12 2300 GI: Surveillance Culture - COMP 06/12 2242 NASOPHARYN: Influenza Virus A & B Rapid Smear - CAN Cancelled: SPECIMEN NOT RECEIVED IN LABORATORY 06/12 2115 LOWER RESP: Respiratory Culture - CAN Cancelled: NUMBER OF SQUAMOUS CELLS INDICATES POOR QUALITY SPECIMEN 06/12 2115 LOWER RESP: Gram Stain - CAN Cancelled: NUMBER OF SQUAMOUS CELLS INDICATES POOR QUALITY SPECIMEN 06/12 1933 BLOOD: Blood Culture - RES HEMOPHILUS SPECIES 06/12 1910 BLOOD: Blood Culture - RES 06/12 1841 URINE ROUT: Legionella Antigen - COMP 06/12 1841 URINE ROUT: Streptococcus pneumoniae Antigen (M - COMP 06/12 1841 URINE ROUT: Urine Culture - COMP METH RESIST STAPH AUREUS 06/12 1827 UPPER RESP: Upper Respiratory Culture - CAN Cancelled: SPECIMEN NOT RECEIVED IN LABORATORY Vital Signs Date Time Temp Pulse Resp B/P B/P Pulse O2 O2 Flow FiO2 Mean Ox Delivery Rate 06/14 0800 Nasal 6.0L Cannula 06/14 0705 97.9 65 20 132/70 96 06/14 0000 Nasal 6.0L Cannula 06/13 2100 97.2 62 12 108/70 95 Nasal 6.0L Cannula 06/13 2000 95 Nasal 6.0L Cannula 06/13 1554 98.2 68 14 138/68 96 Nasal 6.0L Cannula 06/13 1500 96 Nasal 6.0L Cannula Monitor kidney function and give antibiotic treatment accordingly.
[2017-06-14 14:25] VITALS: BP 132/66
[2017-06-14 22:14] VITALS: BP 146/72
--- NOTE | 2017-06-14 23:02 | CT SCAN REPORT ---
EXAMINATION: CT CHEST WITHOUT CONTRAST CLINICAL INFORMATION: Chest tube placed. Fluid collection. COMPARISON: Chest x-ray 06/13/2017, 6:04 PM TECHNIQUE: Multidetector volumetric CT imaging of the chest was done. Axial MIP volume rendering provided. Sagittal and coronal reformatted images were obtained. DLP: 953.55 mGy-cm FINDINGS: PLEURA/LUNGS: Asymmetric elevation of right diaphragm compared to left. There is a cyst moderate volume right pleural effusion. Pigtail chest tube catheter lies at the right lung base laterally. There is no pneumothorax. There is no left pleural effusion. There is consolidation atelectasis at the right lung base. MEDIASTINUM: 1 cm shotty lymph nodes in the pretracheal retrovascular space at the william. 1.5 cm lymph node in the subcarina. AXILLA: No lymphadenopathy. UPPER ABDOMEN: Status post cholecystectomy. Degenerative glands are normal. Visualized portions of liver and spleen are normal. OSSEOUS STRUCTURES: Degenerative spondylosis of spine with multilevel disc height narrowing and endplate spur of the vertebrae. IMPRESSION: 1. Pigtail catheter and pleural space with moderate volume right pleural effusion. No pneumothorax. Atelectasis at the right lung base.
[2017-06-14 23:19] LABS: PTT 58 SEC (25-37)
[2017-06-15 06:56] VITALS: BP 126/72
[2017-06-15 07:58] LABS: ABSOLUTE BASOPHIL COUNT 0 /CUMM (0.0-0.2); ABSOLUTE EOSINOPHIL COUNT 0.1 /CUMM (0.0-0.7); ABSOLUTE LYMPH COUNT 1.1 /CUMM (1.2-3.4); BASOPHIL % 0.1 % (0.0-2.0); HEMATOCRIT 31.2 % (37-47); RBC DISTRIBUTION WIDTH 14.7 % (11.5-14.5)
[2017-06-15 08:22] LABS: PTT 92 SEC (25-37)
[2017-06-15 08:26] LABS: ABSOLUTE GRANULOCYTE CT 31.2 /CUMM (1.4-6.5); ABSOLUTE MONOCYTE COUNT 0.5 /CUMM (0.10-0.60); EOSINOPHIL % 0.2 % (0-5); GRANULOCYTE % 94.9 % (42.2-75.2); MEAN CORPUSCULAR HGB 32.1 PG (27.0-31.0); MEAN CORPUSCULAR VOLUME 97.5 FL (81.0-99.0); MEAN PLATELET VOLUME 6.9 FL (7.4-10.4); PLATELET COUNT 553 /CUMM (130-400)
[2017-06-15 08:38] LABS: WHITE BLOOD CELL COUNT 32.9 /CUMM (4.8-10.8)
--- NOTE | 2017-06-15 09:26 | PN- Cardiology ---
Subjective Subjective: * Dena complains of some back pain. No shortness of breath or chest discomfort. * creatinine 4.2 * highly elevated WBC count * troponins have trended down * sinus rhythm with PAC's Objective Vital Signs and I&Os Vital Signs Date Time Temp Pulse Resp B/P B/P Pulse O2 O2 Flow FiO2 Mean Ox Delivery Rate 06/15 0656 98.5 74 20 126/72 95 Nasal 6.0L Cannula 06/15 0000 Nasal 6.0L Cannula 06/14 2214 98.3 71 22 146/72 95 Nasal 6.0L Cannula 06/14 1425 98.5 70 22 132/66 94 Nasal 6.0L Cannula Intake & Output 06/15 1600 06/15 0800 06/15 0000 06/14 1600 06/14 0800 06/14 0000 Intake Total 620 420 844 120 Output Total 1050 1050 800 350 960 Balance -430 -630 44 -350 -840 Intake, IV 500 300 344 120 Intake, Oral 120 120 500 Output, Chest 50 50 410 Tube Drainage Output, Urine 1000 1000 800 350 550 Physical Exam: General: WD/obese female in NAD; alert and oriented x 3 HEENT: NC/AT, PERRL, EOMI Neck: no JVD, no carotid bruit Heart: RRR w/o murmur Lungs: no crackles or wheezing, chest tube on right Abdomen: soft, obese, NT, +ve bowel sounds Extremities: no edema on right, Left AKA Assessment/Plan Assessment/Plan * This obese and inactive female has evidence of lower extremity thrombosis without findings of a true DVT. I suspect that her small rise in cardiac enzymes is related to a PE. Documentation of this occurrence may be difficult due to out inability to obtain a CT angiogram in the setting of renal insufficiency but her low O2 saturation, shortness of breath and pleuritic pain are consistent with this diagnosis as is her diagnosis of empyema, of course. I think it is prudent to pursue anticoagulation in this patient. She does have an IVC filter which helps but is not 100% reliable for preventing a PE and it does not help with lower extremity thrombosis. IV heparin can be employed since the patient may require additional procedures. * In consideration of the patient's multiple risk factors for coronary artery disease myocardial ischemia related to increased myocardial demand cannot be 100 % excluded and the patient should have risk stratification with a stress test at some point in time. In the meantime, continue IV heparin and aspirin. Continue a statin. If precordial chest pain then begin NTG paste 1/2 inch Q 6 hours. * Obtain an echocardiogram. Continue telemetry? Yes
--- NOTE | 2017-06-15 09:44 | PN- Pulmonary ---
Subjective HPI/Critical Care Issues: Patient continues to complain of right chest pain. Cultures are positive for H. influenzae. T scan continues to show an effusion Objective Current Medications: Current Medications Sig/Suleman Start time Last Medication Dose Route Stop Time Status Admin Albuterol Sulfate 3 ML Q4P PRN 06/13 1130 AC INH Ampicillin Sodium/ 3,000 MG Q8H 06/13 1200 AC 06/15 Sulbactam Sodium IV 0430 Sodium Chloride 100 ML Aspirin Buffered 650 MG DAILY 06/13 1000 AC 06/14 PO 0819 Atorvastatin Calcium 40 MG 1700 06/15 1700 AC PO Docusate Sodium 100 MG BID 06/12 2359 AC 06/14 PO 2119 Furosemide 40 MG DAILY 06/13 1000 AC 06/14 PO 0819 Heparin Sodium 5,000 UNIT .STK-MED ONE 06/15 0004 DC (Porcine) IV 06/15 0005 Heparin Sodium 4,540 UNIT BOLUS ONE 06/15 0000 DC 06/15 (Porcine) IV 06/15 0001 0000 Heparin Sodium 25,000 UNIT .STK-MED ONE 06/14 1047 DC (Porcine) IV 06/14 1048 Heparin Sodium 25,000 UNIT Q24H 06/13 2100 AC 06/15 (Porcine) IV 0936 Sodium Chloride 500 ML Hydromorphone HCl 0.2 MG ONCE ONE 06/15 0515 DC 06/15 IV 06/15 0516 0515 Hydromorphone HCl 0.4 MG ONCE ONE 06/14 2045 DC 06/14 IV 06/14 Influenza Virus 0.5 ML .STK-MED ONE 06/14 1636 DC Vaccine IM 06/14 1637 Insulin Aspart 0 TIDAC/HS 06/14 2100 AC SC Insulin Aspart 0 TIDAC 06/14 0800 DC 06/14 SC 1638 Insulin Detemir 40 UNITS BID 06/13 1000 AC 06/14 SC 2118 Lorazepam 0.25 MG ONE ONE 06/14 2045 DC 06/14 PO 06/14 Oxycodone HCl 20 MG Q12 PRN 06/13 1215 AC 06/15 PO 0001 Potassium Chloride 40 MEQ BID 06/12 2359 AC 06/14 PO 211 Pregabalin 75 MG BID 06/13 2200 AC 06/14 PO 211 Tiotropium [place] 1 PUF DAILY 06/14 1000 AC 06/14 INH 0820 Vancomycin HCl 1,000 MG ONCE ONE 06/14 1045 DC 06/14 Sodium Chloride 250 ML IV 06/14 1144 1203 Vital Signs & I&O Last 24 Hrs of Vitals and I&O: Vital Signs Date Time Temp Pulse Resp B/P B/P Pulse O2 O2 Flow FiO2 Mean Ox Delivery Rate 06/15 0656 98.5 74 20 126/72 95 Nasal 6.0L Cannula 06/15 0000 Nasal 6.0L Cannula 06/14 2214 98.3 71 22 146/72 95 Nasal 6.0L Cannula 06/14 1425 98.5 70 22 132/66 94 Nasal 6.0L Cannula Intake & Output 06/15 1600 06/15 0800 06/15 0000 Intake Total 620 420 Output Total 1050 1050 Balance -430 -630 Intake, IV 500 300 Intake, Oral 120 120 Output, Chest 50 50 Tube Drainage Output, Urine 1000 1000 Oxygen saturation 6 L 95% there are diminished breath sounds over the right posterior chest Impression/Plan Impression/Plan Impression/Plan: 61-year-old with right-sided empyema status post right chest drainage. Significance of urinary MRSA is unclear persistent effusion on CAT scan yesterday suggesting the possible need of intrapleural lytics Recommendations: CT surgery consultation for evaluation of need for lytic therapy for persistent pleural effusion status post drainage. ID follow-up regarding MRSA urinary cultures. Cardiology recommendations regarding anticoagulation. With lethargy would obtain arterial blood gas. Patient is becoming hypernatremic change IV fluids to provide increased free water
--- NOTE | 2017-06-15 10:15 | PN- Diabetes ---
Assessment/Plan Assessment: The patient is alert this morning. She states she does not feel well. She is eating very little breakfast. She had a chest tube inserted. There is drainage although some of the fluid may be loculated. Her white blood count is coming down. The patient's fingerstick blood sugar this morning is 97. The patient is on Levemir 40 units twice a day as well as sliding scale NovoLog. Plan: Suggest reduce Levemir to 35 units twice a day. Continue the present sliding scale NovoLog. The patient should be offered dietary supplements such as Glucerna since she is eating very little. Subjective Subjective: Does not feel well Review of Systems Constitutional: Denies: chills, fever. Cardiovascular: Denies: chest pain. Respiratory: Reports: cough, short of breath. Gastrointestinal: Denies: abdominal pain, nausea, vomiting. Skin: Reports: no symptoms. Objective Last 24 Hrs of Vital Signs/I&O Vital Signs Date Time Temp Pulse Resp B/P B/P Pulse O2 O2 Flow FiO2 Mean Ox Delivery Rate 06/15 0656 98.5 74 20 126/72 95 Nasal 6.0L Cannula 06/15 0000 Nasal 6.0L Cannula 06/14 2214 98.3 71 22 146/72 95 Nasal 6.0L Cannula 06/14 1425 98.5 70 22 132/66 94 Nasal 6.0L Cannula Intake & Output 06/15 1600 06/15 0800 06/15 0000 Intake Total 620 420 Output Total 1050 1050 Balance -430 -630 Intake, IV 500 300 Intake, Oral 120 120 Output, Chest 50 50 Tube Drainage Output, Urine 1000 1000 Vital Signs Date Time Temp Pulse Resp B/P B/P Pulse O2 O2 Flow FiO2 Mean Ox Delivery Rate 06/15 0656 98.5 74 20 126/72 95 Nasal 6.0L Cannula 06/15 0000 Nasal 6.0L Cannula 06/144 98.3 71 22 146/72 95 Nasal 6.0L Cannula 06/14 1425 98.5 70 22 132/66 94 Nasal 6.0L Cannula Intake & Output 06/15 1600 06/15 0800 06/15 0000 Intake Total 620 420 Output Total 1050 1050 Balance -430 -630 Intake, IV 500 300 Intake, Oral 120 120 Output, Chest 50 50 Tube Drainage Output, Urine 1000 1000 Physical Exam General Appearance: alert, anxious Head: normal appearance Neck: normal inspection Respiratory: decreased breath sounds (right lung) Cardiovascular: regular rate/rhythm Extremities: normal inspection (left BKA) Current Medications: Current Medications Sig/Suleman Start time Last Medication Dose Route Stop Time Status Admin Albuterol Sulfate 3 ML Q4P PRN 06/13 1130 AC INH Ampicillin Sodium/ 3,000 MG Q8H 06/13 1200 AC 06/15 Sulbactam Sodium IV 0430 Sodium Chloride 100 ML Aspirin Buffered 650 MG DAILY 06/13 1000 AC 06/15 PO 0950 Atorvastatin Calcium 40 MG 1700 06/15 1700 AC PO Docusate Sodium 100 MG BID 06/12 2359 AC 06/15 PO 0951 Furosemide 40 MG DAILY 06/13 1000 AC 06/15 PO 0951 Heparin Sodium 5,000 UNIT .STK-MED ONE 06/15 0004 DC (Porcine) IV 06/15 0005 Heparin Sodium 4,540 UNIT BOLUS ONE 06/15 0000 DC 06/15 (Porcine) IV 06/15 0001 0000 Heparin Sodium 25,000 UNIT .STK-MED ONE 06/14 1047 DC (Porcine) IV 06/14 1048 Heparin Sodium 25,000 UNIT Q24H 06/13 2100 AC 06/15 (Porcine) IV 0936 Sodium Chloride 500 ML Hydromorphone HCl 0.2 MG ONCE ONE 06/15 0515 DC 06/15 IV 06/15 0516 0515 Hydromorphone HCl 0.4 MG ONCE ONE 06/14 2045 DC 06/14 IV 06/14 Influenza Virus 0.5 ML .STK-MED ONE 06/14 1636 DC Vaccine IM 06/14 1637 Insulin Aspart 0 TIDAC/HS 06/14 2100 AC 06/15 SC 0951 Insulin Aspart 0 TIDAC 06/14 0800 DC 06/14 SC 1638 Insulin Detemir 40 UNITS BID 06/13 1000 AC 06/15 SC 0951 Lorazepam 0.25 MG ONE ONE 06/14 2045 DC 06/14 PO 06/14 Oxycodone HCl 20 MG Q12 PRN 06/13 1215 AC 06/15 PO 0001 Potassium Chloride 40 MEQ BID 06/12 2359 AC 06/15 PO 0950 Pregabalin 75 MG BID 06/13 2200 AC 06/14 PO 2119 Tiotropium [place] 1 PUF DAILY 06/14 1000 AC 06/15 INH 0953 Vancomycin HCl 1,000 MG ONCE ONE 06/14 1045 DC 06/14 Sodium Chloride 250 ML IV 06/14 1144 1203 Findings Pertinent Lab/Drew Results: Laboratory Tests 06/15 06/14 06/14 0655 2250 1044 Chemistry Sodium (137 - 145 mmol/L) 149 H Potassium (3.5 - 5.1 mmol/L) 5.0 Chloride (98 - 107 mmol/L) 113 H Carbon Dioxide (22 - 30 mmol/L) 18 L Anion Gap (5 - 16) 18 H BUN (7 - 17 mg/dL) 92 H Creatinine (0.5 - 1.0 mg/dL) 4.2 H Estimated GFR (>60 ml/min) 11 L BUN/Creatinine Ratio (7 - 25 %) 21.9 Coagulation APTT (25 - 37 SEC) 92 H 58 H 90 H Hematology CBC w Diff MAN DIFF ORDERED WBC (4.8 - 10.8 /CUMM) 32.9 *H RBC (4.20 - 5.40 /CUMM) 3.20 L Hgb (12.0 - 16.0 G/DL) 10.3 L Hct (37 - 47 %) 31.2 L MCV (81.0 - 99.0 FL) 97.5 MCH (27.0 - 31.0 PG) 32.1 H RDW (11.5 - 14.5 %) 14.7 H Plt Count (130 - 400 /CUMM) 553 H MPV (7.4 - 10.4 FL) 6.9 L Gran % (42.2 - 75.2 %) 94.9 H Lymphocytes % (20.5 - 51.1 %) 3.2 L Monocytes % (1.7 - 9.3 %) 1.6 L Eosinophils % (0 - 5 %) 0.2 Basophils % (0.0 - 2.0 %) 0.1 Absolute Granulocytes (1.4 - 6.5 /CUMM) 31.2 H Segmented Neutrophils (42.2 - 75.2 %) 90 H Band Neutrophils (0.0 - 5.0 %) 2 Absolute Lymphocytes (1.2 - 3.4 /CUMM) 1.1 L Lymphocytes (20.5 - 51.1 %) 5 L Monocytes (1.7 - 9.3 %) 3 Absolute Monocytes (0.10 - 0.60 /CUMM) 0.5 Absolute Eosinophils (0.0 - 0.7 /CUMM) 0.1 Absolute Basophils (0.0 - 0.2 /CUMM) 0 Platelet Estimate (ADEQUATE) INCREASED Anisocytosis 1+ PUBS MCHC (33.0 - 37.0 G/DL) 33.0 Toxicology Random Vancomycin (ug/ml) 15.7
--- NOTE | 2017-06-15 10:57 | PN- Housestaff ---
Subjective Follow-up For: Acute hypoxic respiratory failure secondary to pneumonia Elevated troponins Subjective: Patient seen and examined the patient is complaining of back pain denies chest pain shortness of breath fevers and chills. feels lethargic Review of Systems Constitutional: Reports: see HPI. Objective Last 24 Hrs of Vital Signs/I&O Vital Signs Date Time Temp Pulse Resp B/P B/P Pulse O2 O2 Flow FiO2 Mean Ox Delivery Rate 06/15 0800 Room Air 6.0L 06/15 0656 98.5 74 20 126/72 95 Nasal 6.0L Cannula 06/15 0000 Nasal 6.0L Cannula 06/14 2214 98.3 71 22 146/72 95 Nasal 6.0L Cannula 06/14 1425 98.5 70 22 132/66 94 Nasal 6.0L Cannula Intake & Output 06/15 1600 06/15 0800 06/15 0000 Intake Total 620 420 Output Total 1050 1050 Balance -430 -630 Intake, IV 500 300 Intake, Oral 120 120 Output, Chest 50 50 Tube Drainage Output, Urine 1000 1000 Physical Exam General Appearance: Alert, Oriented X3, Cooperative Cardiovascular: Normal S1, Normal S2 Lungs: chest tube on R Abdomen: Normal Bowel Sounds Extremities: left aka Current Medications: Current Medications Sig/Suleman Start time Last Medication Dose Route Stop Time Status Admin Albuterol Sulfate 3 ML Q4P PRN 06/13 1130 AC INH Ampicillin Sodium/ 3,000 MG Q8H 06/13 1200 AC 06/15 Sulbactam Sodium IV 1253 Sodium Chloride 100 ML Aspirin Buffered 650 MG DAILY 06/13 1000 AC 06/15 PO 0950 Atorvastatin Calcium 40 MG 1700 06/15 1700 AC PO Docusate Sodium 100 MG BID 06/12 2359 AC 06/15 PO 0951 Furosemide 40 MG DAILY 06/13 1000 AC 06/15 PO 0951 Heparin Sodium 5,000 UNIT .STK-MED ONE 06/15 0004 DC (Porcine) IV 06/15 0005 Heparin Sodium 4,540 UNIT BOLUS ONE 06/15 0000 DC 06/15 (Porcine) IV 06/15 0001 0000 Heparin Sodium 25,000 UNIT Q24H 06/13 2100 AC 06/15 (Porcine) IV 0936 Sodium Chloride 500 ML Hydromorphone HCl 0.2 MG ONCE ONE 06/15 0515 DC 06/15 IV 06/15 0516 0515 Hydromorphone HCl 0.4 MG ONCE ONE 06/14 2045 DC 06/14 IV 06/14 Influenza Virus 0.5 ML .STK-MED ONE 06/14 1636 DC Vaccine IM 06/14 1637 Insulin Aspart 0 TIDAC/HS 06/14 2100 AC 06/15 SC 1254 Insulin Aspart 0 TIDAC 06/14 0800 DC 06/14 SC 1638 Insulin Detemir 40 UNITS BID 06/13 1000 AC 06/15 SC 0951 Lorazepam 0.25 MG ONE ONE 06/14 2045 DC 06/14 PO 06/14 Oxycodone HCl 20 MG Q12 PRN 06/13 1215 AC 06/15 PO 1118 Potassium Chloride 40 MEQ BID 06/12 2359 AC 06/15 PO 0950 Pregabalin 75 MG BID 06/13 2200 AC 06/15 PO 1118 Tiotropium [place] 1 PUF DAILY 06/14 1000 AC 06/15 INH 0953 Last 24 Hrs of Lab/Drew Results Last 24 Hrs of Labs/Mics: Laboratory Tests 06/15/17 0655: Anion Gap 18 H, Estimated GFR 11 L, BUN/Creatinine Ratio 21.9, APTT 92 H, CBC w Diff MAN DIFF ORDERED, RBC 3.20 L, MCV 97.5, MCH 32.1 H, RDW 14.7 H, MPV 6.9 L, Gran % 94.9 H, Lymphocytes % 3.2 L, Monocytes % 1.6 L, Eosinophils % 0.2, Basophils % 0.1, Absolute Granulocytes 31.2 H, Segmented Neutrophils 90 H , Band Neutrophils 2, Absolute Lymphocytes 1.1 L, Lymphocytes 5 L, Monocytes 3 , Absolute Monocytes 0.5, Absolute Eosinophils 0.1, Absolute Basophils 0, Platelet Estimate INCREASED, Anisocytosis 1+, PUBS MCHC 33.0, Random Vancomycin 15.7 06/14/170: APTT 58 H Assessment/Plan Assessment: 61-year-old woman, current smoker with a history of COPD, diabetes type 2 with diabetic neuropathy, left leg DVT status post IVC filter, chronic kidney disease , neuropathy and peripheral vascular disease, 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 Assessment and plan #1 Acute hypoxic respiratory failure likely secondary to community-acquired pneumonia/empyema Patient presented with pleuritic chest pain, leukocytosis with bandemia and evidence of opacity in the right hemithorax? Pneumonia+ pleural effusion? Empyema.Patient received IV Solu-Medrol in the ED along with 1 dose of Vanco and ceftaz and was started on IV azithromycin and ceftriaxone * White count trending down still elevated, afebrile * TRC nebs [id number]. Oxygen as needed, keep saturations above 92% * Stable status post placement of a pigtail catheter in the right chest 2 days ago for an empyema * Continue Unasyn * No growth pleural fluid so far * CT surgery consultation for evaluation of need for lytic therapy for persistent pleural effusion status post drainage * f/u ABG's patient was lethargic #2 Pleuritic chest pain with positive troponins: Patient had some new EKG changes. Chest pain was mostly pleuritic. Troponins trended down. Likely type II AL in the setting of hypoxic respiratory failure. She was started on IV heparin in ED * Troponins have trended down * Echocardiogram pending * Continue IV heparin and aspirin. Continue a statin. * If precordial chest pain then begin NTG paste 1/2 inch Q 6 hours. * Outpatient stress test #3 Urinary tract infection: Dirty urine, cultures positive for staph aureus * She has received an adequate course of Vancomycin for a lower urinary tract infection #4 Superficial thrombus of the greater saphenous vein * Continue IV heparin * IVC filter in place * VQ scan (no CTA given her acute kidney injury) to rule out PE (her low O2 saturation, shortness of breath and pleuritic pain are consistent with diagnosis of PE) #5 Insulin-dependent diabetes mellitus: * Reduce Levemir to 35 units twice a day * Continue the present sliding scale NovoLog #6 elevated proBNP?: Elevated proBNP at 2590. No echo on record -We'll get echocardiogram to rule out heart failure. Patient does appear to have basal crackles and fluid overload on exam. -Cardiology consult appreciated -Guzman in, strict ins and outs -Daily weight checks. #7 Acute kidney injury on chronic kidney disease -Continue gentle hydration with IV fluids -Check a BEP in a.m. -Avoid nephrotoxins -Pain Control -Diabetic diet -DVT prophylaxis -Full code Problem List: 1. CHRONIC RENAL FAILURE Pain Ratin Pain Location: n/a Pain Goal: Pain 4 or less Pain Plan: prn Tomorrow's Labs & Rationales: cb bep
--- NOTE | 2017-06-15 12:09 | PN- Infect Dx ---
Subjective Subjective: Afebrile. She complained of shortness of breath earlier today and right knee pain. Objective Last 24 Hrs of Vital Signs/I&O Vital Signs Date Time Temp Pulse Resp B/P B/P Pulse O2 O2 Flow FiO2 Mean Ox Delivery Rate 06/15 0656 98.5 74 20 126/72 95 Nasal 6.0L Cannula 06/15 0000 Nasal 6.0L Cannula 06/14 2214 98.3 71 22 146/72 95 Nasal 6.0L Cannula 06/14 1425 98.5 70 22 132/66 94 Nasal 6.0L Cannula Intake & Output 06/15 1600 06/15 0800 06/15 0000 Intake Total 620 420 Output Total 1050 1050 Balance -430 -630 Intake, IV 500 300 Intake, Oral 120 120 Output, Chest 50 50 Tube Drainage Output, Urine 1000 1000 Physical Exam Other Physical Findings: She appears comfortable in no acute distress Lungs decreased breath sounds at the right base; chest tube in place with 50 mL output yesterday and 50 mL overnight Heart regular rhythm with no murmur Extremities right knee with no erythema or edema and nontender to palpation, but with decreased range of motion Results Last 24 Hours of Lab Results: Laboratory Tests 06/15 06/14 0655 2250 Chemistry Sodium (137 - 145 mmol/L) 149 H Potassium (3.5 - 5.1 mmol/L) 5.0 Chloride (98 - 107 mmol/L) 113 H Carbon Dioxide (22 - 30 mmol/L) 18 L Anion Gap (5 - 16) 18 H BUN (7 - 17 mg/dL) 92 H Creatinine (0.5 - 1.0 mg/dL) 4.2 H Estimated GFR (>60 ml/min) 11 L BUN/Creatinine Ratio (7 - 25 %) 21.9 Coagulation APTT (25 - 37 SEC) 92 H 58 H Hematology CBC w Diff MAN DIFF ORDERED WBC (4.8 - 10.8 /CUMM) 32.9 *H RBC (4.20 - 5.40 /CUMM) 3.20 L Hgb (12.0 - 16.0 G/DL) 10.3 L Hct (37 - 47 %) 31.2 L MCV (81.0 - 99.0 FL) 97.5 MCH (27.0 - 31.0 PG) 32.1 H RDW (11.5 - 14.5 %) 14.7 H Plt Count (130 - 400 /CUMM) 553 H MPV (7.4 - 10.4 FL) 6.9 L Gran % (42.2 - 75.2 %) 94.9 H Lymphocytes % (20.5 - 51.1 %) 3.2 L Monocytes % (1.7 - 9.3 %) 1.6 L Eosinophils % (0 - 5 %) 0.2 Basophils % (0.0 - 2.0 %) 0.1 Absolute Granulocytes (1.4 - 6.5 /CUMM) 31.2 H Segmented Neutrophils (42.2 - 75.2 %) 90 H Band Neutrophils (0.0 - 5.0 %) 2 Absolute Lymphocytes (1.2 - 3.4 /CUMM) 1.1 L Lymphocytes (20.5 - 51.1 %) 5 L Monocytes (1.7 - 9.3 %) 3 Absolute Monocytes (0.10 - 0.60 /CUMM) 0.5 Absolute Eosinophils (0.0 - 0.7 /CUMM) 0.1 Absolute Basophils (0.0 - 0.2 /CUMM) 0 Platelet Estimate (ADEQUATE) INCREASED Anisocytosis 1+ PUBS MCHC (33.0 - 37.0 G/DL) 33.0 Toxicology Random Vancomycin (ug/ml) 15.7 Last 24 Hours of Drew Results: Blood cultures June 12 one bottle positive for Haemophilus influenzae, beta lactamase positive Pleural fluid culture June 13 negative so far Urine strep pneumo antigen and Legionella antigen June 12 negative Urine culture June 12 greater than 100,000 colonies of MRSA Recent Imaging Studies: CT of the chest June 14 revealed a moderate right pleural effusion, with the pigtail catheter lying at the right lung base laterally, with consolidation/ atelectasis at the right lung base Assessment/Plan Impression: Stable status post placement of a pigtail catheter in the right chest 2 days ago for an empyema, with Haemophilus influenza isolated from the blood culture but with the pleural fluid culture so far negative. She remains afebrile with her white blood cell count decreased today, though it remains elevated, on Unasyn, which will provide adequate coverage for the Haemophilus influenza, and Vancomycin, Day 3 of treatment for MRSA isolated from the urine culture. She did report urinary symptoms prior to admission but do not suspect an upper urinary tract infection and she has received an adequate course of Vancomycin for a lower urinary tract infection. Her right knee pain is of unclear significance but may warrant further evaluation. Suggestion: 1. Further management of the chest tube, with possible need for lytics, per Pulmonary 2. X-ray of the right knee 3. Continue Unasyn
[2017-06-15 15:10] VITALS: BP 142/70
--- NOTE | 2017-06-15 15:16 | PN- Att Addend ---
Attending Addendum Attending Brief Note Uncomfortable in bed, cannot get into a comfortable position. Chest tube in place. Vital signs are stable no fever noted no major changes on physical. White count 32,900 down from the 40,000 no other changes. Patient would have a vascular consultation see if she needs any treatment via the chest tube to pleural effusion. Continue antibiotic therapy as per infectious diseases recommendations. Intake & Output 06/15 1600 06/15 0400 06/14 1600 06/14 0400 06/13 1600 06/13 0400 Intake Total 620 420 205 445 4199 Output Total 2450 1050 0775 949 8867 Balance -1830 -630 -306 -840 -149 Intake, IV 500 300 344 120 971 Intake, Oral 120 120 500 480 Number 0 Bowel Movements Output, Chest 50 50 410 Tube Drainage Output, Urine 2400 1000 8519 195 7348 Patient 250 lb Weight Weight Bed scale Measurement Method Current Medications Sig/Suleman Start time Last Medication Dose Route Stop Time Status Admin Albuterol Sulfate 3 ML Q4P PRN 06/13 1130 AC INH Ampicillin Sodium/ 3,000 MG Q8H 06/13 1200 AC 06/15 Sulbactam Sodium IV 1253 Sodium Chloride 100 ML Aspirin Buffered 650 MG DAILY 06/13 1000 AC 06/15 PO 0950 Atorvastatin Calcium 40 MG 1700 06/15 1700 AC PO Docusate Sodium 100 MG BID 06/12 2359 AC 06/15 PO 0951 Furosemide 40 MG DAILY 06/13 1000 AC 06/15 PO 0951 Heparin Sodium 5,000 UNIT .STK-MED ONE 06/15 0004 DC (Porcine) IV 06/15 0005 Heparin Sodium 4,540 UNIT BOLUS ONE 06/15 0000 DC 06/15 (Porcine) IV 06/15 0001 0000 Heparin Sodium 25,000 UNIT Q24H 06/13 2100 AC 06/15 (Porcine) IV 0936 Sodium Chloride 500 ML Hydromorphone HCl 0.2 MG ONCE ONE 06/15 0515 DC 06/15 IV 06/15 0516 0515 Hydromorphone HCl 0.4 MG ONCE ONE 06/145 DC 06/14 IV 06/14 2046 204 Influenza Virus 0.5 ML .STK-MED ONE 06/14 1636 DC Vaccine IM 06/14 1637 Insulin Aspart 0 TIDAC/HS 06/14 2100 AC 06/15 SC 1254 Insulin Aspart 0 TIDAC 06/14 0800 DC 06/14 WI 1638 Insulin Detemir 35 UNITS BID 06/15 2200 [facility] Insulin Detemir 40 UNITS BID 06/13 1000 CO 06/15 SC 0951 Lorazepam 0.25 MG ONE ONE 06/14 2045 DC 06/14 PO 06/14 Oxycodone HCl 20 MG Q12 PRN 06/13 1215 AC 06/15 PO 1118 Potassium Chloride 40 MEQ BID 06/12 2359 AC 06/15 PO 0950 Pregabalin 75 MG BID 06/13 2200 AC 06/15 PO 1118 Tiotropium [place] 1 PUF DAILY 06/14 1000 06/15 INH 0953 Laboratory Tests 06/15/17 0655: Anion Gap 18 H, Estimated GFR 11 L, BUN/Creatinine Ratio 21.9, APTT 92 H, CBC w Diff MAN DIFF ORDERED, RBC 3.20 L, MCV 97.5, MCH 32.1 H, RDW 14.7 H, MPV 6.9 L, Gran % 94.9 H, Lymphocytes % 3.2 L, Monocytes % 1.6 L, Eosinophils % 0.2, Basophils % 0.1, Absolute Granulocytes 31.2 H, Segmented Neutrophils 90 H , Band Neutrophils 2, Absolute Lymphocytes 1.1 L, Lymphocytes 5 L, Monocytes 3 , Absolute Monocytes 0.5, Absolute Eosinophils 0.1, Absolute Basophils 0, Platelet Estimate INCREASED, Anisocytosis 1+, PUBS MCHC 33.0, Random Vancomycin 15.7 06/14/17 2250: APTT 58 H 06/14/17 1044: APTT 90 H 06/14/17 0255: Anion Gap 13, Estimated GFR 10 L, Glucose 266 H, Calcium 8.8, Phosphorus 7.8 H, Magnesium 2.6 H, Total Bilirubin 0.2, AST 24, ALT 42, Albumin 2.5 L, Random Vancomycin 8.5 06/14/17 0255: Sodium Cancelled, Potassium Cancelled, Chloride Cancelled, Carbon Dioxide Cancelled, Anion Gap Cancelled, BUN Cancelled, Creatinine Cancelled, Glucose Cancelled, Calcium Cancelled, Phosphorus Cancelled, Magnesium Cancelled, Total Bilirubin Cancelled, AST Cancelled, ALT Cancelled, Albumin Cancelled, APTT 36, CBC w Diff MAN DIFF ORDERED, RBC 2.98 L, MCV 98.1, MCH 32.3 H, RDW 14.2, MPV 6.7 L, Gran % 95.8 H, Lymphocytes % 1.4 L, Monocytes % 2.8, Eosinophils % 0, Basophils % 0, Absolute Granulocytes 41.8 H, Segmented Neutrophils 94 H, Band Neutrophils 1, Absolute Lymphocytes 0.6 L, Lymphocytes 2 L, Monocytes 3, Absolute Monocytes 1.2 H, Absolute Eosinophils 0, Absolute Basophils 0, Platelet Estimate INCREASED, Polychromasia 1+, Hypochromic-Microcytic 1+, Anisocytosis 1+, PUBS MCHC 32.9 L, Random Vancomycin Cancelled 06/13/17 1728: Fluid WBC 14614 H, Fld Total RBCs Counted 34182 H 06/13/17 1728: % Normal PMNs 95, Misc Hematology Test , Fluid Glucose 99, Fluid Total Protein 4.6, Fluid Albumin 1.9, Fluid LDH 3819, Fluid Amylase < 30 06/13/17 1727: Pleural pH 6.40 06/13/17 0932: APTT 50 H 06/13/17 0330: Anion Gap 18 H, Estimated GFR 11 L, Glucose 333 H, Calcium 8.7, Phosphorus 8.0 H, Magnesium 2.1, Total Bilirubin 0.3, AST 30, ALT 46, Troponin I 0.18 *H, Albumin 2.5 L, APTT 34, CBC w Diff MAN DIFF ORDERED, RBC 3.14 L, MCV 97.2, MCH 32.6 H, RDW 14.3, MPV 6.5 L, Gran % 98.1 H, Lymphocytes % 1.2 L, Monocytes % 0.7 L, Eosinophils % 0, Basophils % 0, Absolute Granulocytes 44.0 H, Absolute Lymphocytes 0.5 L, Absolute Monocytes 0.3, Absolute Eosinophils 0, Absolute Basophils 0, Platelet Estimate INCREASED, Polychromasia 1+, Hypochromic- Microcytic 1+, Poikilocytosis 1+, PUBS MCHC 33.6 06/12/172209: Troponin I 0.25 *H 06/12/172119: pH 7.26 *L, pCO2 40, pO2 77 L, HCO3 17 L, ABG O2 Sat (Measured) 92.0 L, P-50 (Temp Corrected) N, Carboxyhemoglobin 0.7 L, O2 Concentration % 6L, Temperature 99.3, O2 Delivery Method NC, Phlebotomy Draw Site RIGHT RADIAL 06/12/172030: Lactic Acid Cancelled 06/12/17 1841: Urine Color YEL, Urine Clarity CLDY H, Urine pH 6.0, Ur Specific [place] 1.020, Urine Protein 100 H, Urine Ketones NEG, Urine Nitrite POS H, Urine Bilirubin NEG, Urine Urobilinogen 0.2, Ur Leukocyte Esterase MOD H, Ur Microscopic SEDIMENT EXAMINED, Urine WBC > 75 H, Ur Epithelial Cells MANY H, Urine Bacteria MANY H, Micro UA Comment MORE INFO: H, Urine Hemoglobin MOD H, Urine Glucose 500 H 06/12/17 1734: Anion Gap 18 H, Estimated GFR 12 L, BUN/Creatinine Ratio 17.6, Glucose 252 H, Lactic Acid 1.6, Calcium 9.1, Magnesium 1.9, Total Bilirubin 0.4, AST 42 H, ALT 52, Alkaline Phosphatase 243 H, Troponin I 0.23 *H, [id number] Pept 2520 H, Total Protein 6.8, Albumin 2.9 L, Globulin 3.9, Albumin/Globulin Ratio 0.7 L, PT 13.9 H, INR 1.33 H, APTT 29, D-Dimer High Sensitivty 3896 H, CBC w Diff MAN DIFF ORDERED, RBC 3.68 L, MCV 96.7, MCH 32.3 H, RDW 13.9, MPV 6.4 L, Gran % 96.8 H, Lymphocytes % 1.6 L, Monocytes % 1.6 L, Eosinophils % 0, Basophils % 0, Absolute Granulocytes 45.9 H, Segmented Neutrophils 93 H, Band Neutrophils 5, Absolute Lymphocytes 0.8 L, Monocytes 2, Absolute Monocytes 0.8 H, Absolute Eosinophils 0, Absolute Basophils 0, Platelet Estimate INCREASED, Normocytic RBCs VERIFIED, Normochromic RBCs VERIFIED, PUBS MCHC 33.3 Microbiology 06/13 1728 BODY FLUID: Body Fluid Culture - RES 06/13 172 BODY FLUID: Gram Stain - RES 06/13 1030 URINE ROUT: Urine Culture - COMP METH RESIST STAPH AUREUS 06/12 2300 UPPER RESP: Surveillance Culture - COMP METH RESIST STAPH AUREUS 06/12 2300 GI: Surveillance Culture - COMP 06/12 2242 NASOPHARYN: Influenza Virus A & B Rapid Smear - CAN Cancelled: SPECIMEN NOT RECEIVED IN LABORATORY 06/12 2115 LOWER RESP: Respiratory Culture - CAN Cancelled: NUMBER OF SQUAMOUS CELLS INDICATES POOR QUALITY SPECIMEN 06/12 2115 LOWER RESP: Gram Stain - CAN Cancelled: NUMBER OF SQUAMOUS CELLS INDICATES POOR QUALITY SPECIMEN 06/12 1933 BLOOD: Blood Culture - COMP HAEMOPHILUS INFLUENZAE 06/12 1910 BLOOD: Blood Culture - RES 06/12 1841 URINE ROUT: Legionella Antigen - COMP 06/12 1841 URINE ROUT: Streptococcus pneumoniae Antigen (M - COMP 06/12 1841 URINE ROUT: Urine Culture - COMP METH RESIST STAPH AUREUS 06/12 1827 UPPER RESP: Upper Respiratory Culture - CAN Cancelled: SPECIMEN NOT RECEIVED IN LABORATORY Microbiology 06/13 172 BODY FLUID: Body Fluid Culture - RES 06/13 172 BODY FLUID: Gram Stain - RES 06/13 1030 URINE ROUT: Urine Culture - COMP METH RESIST STAPH AUREUS 06/12 2300 UPPER RESP: Surveillance Culture - COMP METH RESIST STAPH AUREUS 06/12 2300 GI: Surveillance Culture - COMP 06/12 2242 NASOPHARYN: Influenza Virus A & B Rapid Smear - CAN Cancelled: SPECIMEN NOT RECEIVED IN LABORATORY 06/12 2115 LOWER RESP: Respiratory Culture - CAN Cancelled: NUMBER OF SQUAMOUS CELLS INDICATES POOR QUALITY SPECIMEN 06/12 2115 LOWER RESP: Gram Stain - CAN Cancelled: NUMBER OF SQUAMOUS CELLS INDICATES POOR QUALITY SPECIMEN 06/12 1933 BLOOD: Blood Culture - COMP HAEMOPHILUS INFLUENZAE 06/12 1910 BLOOD: Blood Culture - RES 06/12 1841 URINE ROUT: Legionella Antigen - COMP 06/12 1841 URINE ROUT: Streptococcus pneumoniae Antigen (M - COMP 06/12 1841 URINE ROUT: Urine Culture - COMP METH RESIST STAPH AUREUS 06/12 1827 UPPER RESP: Upper Respiratory Culture - CAN Cancelled: SPECIMEN NOT RECEIVED IN LABORATORY Vital Signs Date Time Temp Pulse Resp B/P B/P Pulse O2 O2 Flow FiO2 Mean Ox Delivery Rate 06/15 1510 98.0 80 18 142/70 94 06/15 0800 Room Air 6.0L 06/15 0656 98.5 74 20 126/72 95 Nasal 6.0L Cannula 06/15 0000 Nasal 6.0L Cannula 06/14 2214 98.3 71 22 146/72 95 Nasal 6.0L Cannula
[2017-06-15 17:32] LABS: PTT 59 SEC (25-37)
[2017-06-15 22:33] VITALS: BP 120/70
[2017-06-16 01:26] LABS: PTT 77 SEC (25-37)
[2017-06-16 06:52] VITALS: BP 164/68
[2017-06-16 07:46] LABS: ABSOLUTE BASOPHIL COUNT 0 /CUMM (0.0-0.2); ABSOLUTE EOSINOPHIL COUNT 0.2 /CUMM (0.0-0.7); ABSOLUTE GRANULOCYTE CT 27.2 /CUMM (1.4-6.5); ABSOLUTE LYMPH COUNT 1.1 /CUMM (1.2-3.4); ABSOLUTE MONOCYTE COUNT 0.2 /CUMM (0.10-0.60); BASOPHIL % 0 % (0.0-2.0); EOSINOPHIL % 0.5 % (0-5); HEMATOCRIT 31.5 % (37-47); MEAN CORPUSCULAR HGB 32.5 PG (27.0-31.0); MEAN CORPUSCULAR HGB CONC 33.3 G/DL (33.0-37.0); MEAN CORPUSCULAR VOLUME 97.4 FL (81.0-99.0); MEAN PLATELET VOLUME 6.6 FL (7.4-10.4); PLATELET COUNT 532 /CUMM (130-400); RBC DISTRIBUTION WIDTH 14.7 % (11.5-14.5); RED BLOOD CELL CT 3.23 /CUMM (4.20-5.40)
--- NOTE | 2017-06-16 08:01 | PN- Diabetes ---
Assessment/Plan Assessment: The patient is alert this morning. She states she feels a little better. She is more hungry. She had a chest tube inserted. There is drainage although some of the fluid may be loculated. Her white blood count is coming down. The patient's fingerstick blood sugar this morning is 153. The patient is on Levemir 35 units twice a day as well as sliding scale NovoLog. Plan: Suggest reduced Levemir to 30 units twice a day. Continue the present sliding scale NovoLog before meals with a separate sliding scale at bedtime. Subjective Subjective: Feels improved Review of Systems Constitutional: Denies: chills, fever. Cardiovascular: Denies: chest pain. Respiratory: Reports: cough, short of breath. Gastrointestinal: Denies: abdominal pain, nausea, vomiting. Skin: Reports: no symptoms. Objective Last 24 Hrs of Vital Signs/I&O Vital Signs Date Time Temp Pulse Resp B/P B/P Pulse O2 O2 Flow FiO2 Mean Ox Delivery Rate 06/16 0652 99.0 73 20 164/ 94 Nasal Cannula 06/15 2233 99.4 77 20 120/70 95 06/15 2201 Nasal 4.5L Cannula 06/15 1845 94 Nasal 4.5L Cannula 06/15 1600 Nasal 5.0L Cannula 06/15 1510 98.0 80 18 142/70 94 06/15 800 Room Air 6.0L Intake & Output 06/16 0800 06/16 0000 06/15 1600 Intake Total 891.2 146.7 1950 Output Total 1400 Balance 891.2 146.7 550 Intake, IV 491.2 146.7 450 Intake, Oral 400 1500 Number 0 Bowel Movements Output, Urine 1400 Vital Signs Date Time Temp Pulse Resp B/P B/P Pulse O2 O2 Flow FiO2 Mean Ox Delivery Rate 06/16 0652 99.0 73 20 164/68 94 Nasal Cannula 06/15 2233 99.4 77 20 120/70 95 06/15 2201 Nasal 4.5L Cannula 06/15 1845 94 Nasal 4.5L Cannula 06/15 1600 Nasal 5.0L Cannula 06/15 1510 98.0 80 18 142/70 94 06/15 0800 Room Air 6.0L Intake & Output 06/16 0800 06/16 0000 06/15 1600 Intake Total 891.2 146.7 1950 Output Total 1400 Balance 891.2 146.7 550 Intake, IV 491.2 146.7 450 Intake, Oral 400 1500 Number 0 Bowel Movements Output, Urine 1400 Physical Exam General Appearance: alert, awake, comfortable, obese Head: normal appearance Neck: normal inspection Respiratory: decreased breath sounds right base Cardiovascular: regular rate/rhythm Abdomen: normal bowel sounds, soft Current Medications: Current Medications Sig/Suleman Start time Last Medication Dose Route Stop Time Status Admin Albuterol Sulfate 3 ML BID 06/15 2200 AC 06/16 INH 0746 Albuterol Sulfate 3 ML Q4P PRN 06/13 1130 DC INH Ampicillin Sodium/ 3,000 MG Q8H 06/13 1200 AC 06/16 Sulbactam Sodium IV 0535 Sodium Chloride 100 ML Aspirin Buffered 650 MG DAILY 06/13 1000 AC 06/16 PO 0749 Atorvastatin Calcium 40 MG 1700 06/15 1700 AC 06/15 PO 1748 Docusate Sodium 100 MG BID 06/12 2359 AC 06/16 PO 0749 Furosemide 40 MG DAILY 06/13 1000 AC 06/16 PO 0749 Heparin Sodium 5,000 UNIT .STK-MED ONE 06/15 2045 DC (Porcine) IV 06/15 204 Heparin Sodium 4,588 UNIT 1830 06/15 1830 DC 06/15 (Porcine) IV 06/15 1831 2155 Heparin Sodium 25,000 UNIT Q24H 06/13 2100 AC 06/15 (Porcine) IV 1847 Sodium Chloride 500 ML Insulin Aspart 0 TIDAC/HS 06/14 2100 AC 06/16 SC 0748 Insulin Detemir 35 UNITS BID 06/15 2200 AC 06/16 SC 0747 Insulin Detemir 40 UNITS BID 06/13 1000 DC 06/15 SC 0951 Nitroglycerin 0.5 GM Q6P PRN 06/15 1830 AC TOP Oxycodone HCl 20 MG Q12 PRN 06/13 1215 AC 06/15 PO 1118 Potassium Chloride 40 MEQ BID 06/12 2359 AC 06/16 PO 0749 Pregabalin 75 MG BID 06/13 2200 AC 06/16 PO 0748 Tiotropium [place] 1 PUF DAILY 06/14 1000 AC 06/16 INH 0750 Findings Pertinent Lab/Drew Results: Laboratory Tests 06/16 06/16 06/15 06/15 06/15 0644 0030 1931 1830 1725 Blood Gas pH (7.35 - 7.45 PH) 7.30 *L pCO2 (35 - 45 TORR) 33 L pO2 (80 - 100 TORR) 82 HCO3 (21 - 28 MEQ/L) 16 L ABG O2 Sat (Measured) (>96.0 %) 94.0 L P-50 (Temp Corrected) N Carboxyhemoglobin (1.5 - 5.0 %) 0.4 L O2 Concentration % 4.5L Temperature (97.0 - 100.0 FARH) 98.0 O2 Delivery Method NC Chemistry Sodium (137 - 145 mmol/L) Pending 144 Potassium (3.5 - 5.1 mmol/L) Pending 4.4 Chloride (98 - 107 mmol/L) Pending 111 H Carbon Dioxide (22 - 30 mmol/L) Pending 20 L Anion Gap (5 - 16) Pending 13 BUN (7 - 17 mg/dL) Pending 86 H Creatinine (0.5 - 1.0 mg/dL) Pending 3.9 H Estimated GFR (>60 ml/min) 12 L BUN/Creatinine Ratio (7 - 25 %) Pending 22.1 Lactic Acid (0.7 - 2.1 mmol/L) Cancelled 0.8 Coagulation APTT (25 - 37 SEC) 77 H Hematology CBC w Diff Pending WBC Pending RBC Pending Hgb Pending Hct Pending MCV Pending MCH Pending RDW Pending Plt Count Pending MPV Pending PUBS MCHC Pending Miscellaneous Phlebotomy Draw Site RIGHT RADIAL 06/15 1550 Coagulation APTT (25 - 37 SEC) 59 H
--- NOTE | 2017-06-16 09:00 | PN- Housestaff ---
Subjective Follow-up For: Acute hypoxic respiratory failure secondary to pneumonia/empyema Tele-Events Since Last Visit: Sinus rhythm at a rate 73-85 with PACs Subjective: Patient was seen and examined bedside. She complains of feeling weak and right chest and right back pain that is worse with moving and especially where the incision was where she has her Pleurex catheter placed. She also complains of right knee pain and swelling. Patient has a left leg prosthesis. Review of Systems Constitutional: Reports: weakness. EENTM: Reports: no symptoms. Cardiovascular: Reports: chest pain. Respiratory: Reports: no symptoms. Gastrointestinal: Reports: no symptoms. Genitourinary: Reports: no symptoms. Musculoskeletal: Reports: back pain. Skin: Reports: no symptoms. Neurological/Psychological: Reports: no symptoms. Hematologic/Endocrine: Reports: no symptoms. Immunologic/Allergic: Reports: no symptoms. Objective Last 24 Hrs of Vital Signs/I&O Vital Signs Date Time Temp Pulse Resp B/P B/P Pulse O2 O2 Flow FiO2 Mean Ox Delivery Rate 06/16 0816 93 Nasal 4.0L Cannula 06/16 0800 Nasal 4.5L Cannula 06/16 0652 99.0 73 20 164/68 94 Nasal Cannula 06/15 2233 99.4 77 20 120/70 95 06/15 2201 Nasal 4.5L Cannula 06/15 1845 94 Nasal 4.5L Cannula 06/15 1600 Nasal 5.0L Cannula 06/15 1510 98.0 80 18 142/70 94 Intake & Output 06/16 1600 06/16 0800 06/16 0000 Intake Total 891.2 146.7 Output Total Balance 891.2 146.7 Intake, IV 491.2 146.7 Intake, Oral 400 Physical Exam General Appearance: Alert, Oriented X3, Cooperative, No Acute Distress Skin: No Rashes Skin Temp/Moisture Exam: Warm/Dry Sepsis Skin Exam (color): Normal for Ethnicity HEENT: Atraumatic, PERRLA, EOMI, Mucous Membr. moist/pink Neck: Supple, No JVD Cardiovascular: Regular Rate, Normal S1, Normal S2, No Murmurs Lungs: Clear to Auscultation Abdomen: Normal Bowel Sounds, Soft, No Tenderness, No Hepatospenomegaly, No Masses Neurological: Normal Speech Extremities: No Clubbing, No Cyanosis, No Edema, Normal Pulses, left leg prosthesis Vascular: Normal Pulses, Pulses Symmetrical Current Medications: Current Medications Sig/Suleman Start time Last Medication Dose Route Stop Time Status Admin Albuterol Sulfate 3 ML BID 06/15 220 AC 06/16 INH 0746 Albuterol Sulfate 3 ML Q4P PRN 06/13 1130 DC INH Ampicillin Sodium/ 3,000 MG Q8H 06/13 1200 AC 06/16 Sulbactam Sodium IV 0535 Sodium Chloride 100 ML Aspirin Buffered 650 MG DAILY 06/13 1000 AC 06/16 PO 0749 Atorvastatin Calcium 40 MG 1700 06/15 1700 AC 06/15 PO 1748 Docusate Sodium 100 MG BID 06/12 2359 AC 06/16 PO 0749 Furosemide 40 MG DAILY 06/13 1000 AC 06/16 PO 0749 Heparin Sodium 5,000 UNIT .STK-MED ONE 06/15 2045 DC (Porcine) IV 06/15 2046 Heparin Sodium 4,588 UNIT 18306/15 183 DC 06/15 (Porcine) IV 06/15 1831 2155 Heparin Sodium 25,000 UNIT Q24H 06/13 2100 AC 06/15 (Porcine) IV 1847 Sodium Chloride 500 ML Insulin Aspart 0 TIDAC/HS 06/14 2100 AC 06/16 SC 0748 Insulin Detemir 35 UNITS BID 06/15 2200 AC 06/16 SC 0747 Insulin Detemir 40 UNITS BID 06/13 1000 DC 06/15 SC 0951 Nitroglycerin 0.5 GM Q6P PRN 06/15 1830 AC TOP Non-Formulary 0 SEE ADMIN CRITERIA 06/16 1045 UNVr Medication ANY Oxycodone HCl 20 MG Q12 PRN 06/13 1215 AC 06/15 PO 1118 Potassium Chloride 40 MEQ BID 06/12 2359 AC 06/16 PO 0749 Pregabalin 75 MG BID 06/13 2200 AC 06/16 PO 0748 Tiotropium [place] 1 PUF DAILY 06/14 1000 AC 06/16 INH 0750 Last 24 Hrs of Lab/Drew Results Last 24 Hrs of Labs/Mics: Laboratory Tests 06/16/17 0644: Anion Gap 14, Estimated GFR 15 L, BUN/Creatinine Ratio 25.6 H, CBC w Diff NO MAN DIFF REQ, RBC 3.23 L, MCV 97.4, MCH 32.5 H, RDW 14.7 H, MPV 6.6 L, Gran % 95.0 H, Lymphocytes % 3.8 L, Monocytes % 0.7 L, Eosinophils % 0.5, Basophils % 0, Absolute Granulocytes 27.2 H, Absolute Lymphocytes 1.1 L, Absolute Monocytes 0.2, Absolute Eosinophils 0.2, Absolute Basophils 0, PUBS MCHC 33.3 06/16/17 0030: APTT 77 H 06/15/17 1931: Lactic Acid Cancelled 06/15/17 1830: pH 7.30 *L, pCO2 33 L, pO2 82, HCO3 16 L, ABG O2 Sat (Measured) 94.0 L, P-50 (Temp Corrected) N, Carboxyhemoglobin 0.4 L, O2 Concentration % 4.5L, Temperature 98.0, O2 Delivery Method NC, Phlebotomy Draw Site RIGHT RADIAL 06/15/17 1725: Anion Gap 13, Estimated GFR 12 L, BUN/Creatinine Ratio 22.1, Lactic Acid 0.8 06/15/17 1550: APTT 59 H Assessment/Plan Assessment: Assessment 61-year-old woman, current smoker with a history of COPD, diabetes type 2 with diabetic neuropathy, left leg DVT status post IVC filter, chronic kidney disease , neuropathy and peripheral vascular disease, 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 Patient had drainage and Pleurx catheter drain placed on the for question of empyema. Fluid was found to not be grossly purulent. Fluid composition showed elevated WBCs, RBCs, pH 6.4, LDH of 3819. She is on Unasyn. She was found to have extremely elevated white blood cell count on admission of 44. Chest x-ray done after placement on 06/13 which showed persistent moderate volume of her right pleural effusion. Patient is currently on Unasyn. Plan #1 Acute hypoxic respiratory failure likely secondary to community-acquired pneumonia/empyema: Patient presented with pleuritic chest pain, leukocytosis with bandemia and evidence of opacity in the right hemithorax. She was found to have an empyema which was drained with Pleurx catheter. Fluid was found to be exudative in nature. Catheter drainage thus far was 550 mL of serous sanguinous fluid. * White count trending down still elevated, afebrile * TRC nebs [id number]. Oxygen as needed, keep saturations above 92% * As placement of Pleurx catheter on chest x-ray from 06/13 is above the collection of fluid, surgery has ordered addition of lytic agent alteplase to aid in suction and removal of the fluid. Surgery will order this every day for the next 4 days. * Continue Unasyn * No growth pleural fluid so far * Follow-up chest x-ray today #2 Pleuritic chest pain with positive troponins: Patient had some new EKG changes. Chest pain was mostly pleuritic. Troponins trended down. Likely type II WI in the setting of hypoxic respiratory failure which may be secondary to a pulmonary embolism. Clinically the patient has shortness of breath, pleuritic pain, low oxygen saturation consistent with empyema but also with pulmonary embolism. She was started on IV heparin in ED which is currently being continued. We are unable to get CTA in the setting of renal insufficiency. The patient has an IVC filter but of note this is not 100% reliable in the prevention of pulmonary embolism and of course does not help with an actual lower extremity thrombosis. * Troponins have trended down * Continue IV heparin and aspirin and statin. * According to Dr. Lucas, if patient has precordial chest pain then can begin NTG paste 1/2 inch Q 6 hours. * According to Dr. Lucas, cardiology, myocardial ischemia cannot be 100% excluded and patient should have outpatient risk stratification with a stress test. #3 Urinary tract infection: Dirty urine, cultures positive for staph aureus * She has received an adequate course of Vancomycin for a lower urinary tract infection #4 Right knee pain: Patient notes a chronic moderate right knee pain. * Severe tricompartmental osteoarthritis seen on xray * Pain control with oxycontin prn #5 Insulin-dependent diabetes mellitus: * Reduce Levemir to 30 units twice a day * Continue the present sliding scale NovoLog #6 Elevated proBNP at 2590. No previous echo on record. * We'll get echocardiogram to rule out heart failure. * Cardiology consult appreciated * Guzman in, strict ins and outs * Daily weight checks. #7 Acute kidney injury on chronic kidney disease * Continue gentle hydration with IV fluids * Monitory BEP * Avoid nephrotoxins -Pain Control -Diabetic diet -DVT prophylaxis with heparin and Alps on right leg -Full code Problem List: 1. Amputated above knee 2. CHRONIC RENAL FAILURE 3. Pleural effusion 4. Pneumonia 5. AMEYA (acute kidney injury) Pain Ratin Pain Location: Back and chest where catheter was inserted Pain Goal: Pain 4 or less Pain Plan: OxyContin Tomorrow's Labs & Rationales: CBC and BEP
[2017-06-16 09:18] LABS: WHITE BLOOD CELL COUNT 28.6 /CUMM (4.8-10.8)
--- NOTE | 2017-06-16 10:05 | RADIOLOGY REPORT ---
EXAMINATION: XR KNEE, RIGHT CLINICAL INFORMATION: Right knee pain. COMPARISON: None TECHNIQUE: Four views of the right knee. FINDINGS: Severe tricompartmental osteoarthritic degenerative changes are noted with joint space narrowing, large marginal osteophytes and subchondral sclerosis. The changes are most pronounced in the medial compartment. No acute fracture or dislocation. No erosion or aggressive osseous destruction. No joint effusion. No abnormal soft tissue calcification. IMPRESSION: Severe tricompartmental osteoarthritis.
--- NOTE | 2017-06-16 10:39 | PN- Att Addend ---
Attending Addendum Attending Brief Note Just returned from a knee x-ray, sitting in the chair usual pains and aches, Temp max 99 4. Rest of the vitals signs are stable had no major changes on physical chest tube still in position. Chest surgeon to evaluate the patient see if she needs any more treatments. Her white count is still elevated but very slowly coming down no other changes. Continue antibiotic treatment as per infectious diseases recommendations Intake & Output 06/16 1600 06/16 0400 06/15 1600 06/15 0400 06/14 1600 06/14 0400 Intake Total 891.2 146.7 2570 420 844 120 Output Total 2450 1050 1150 960 Balance 891.2 146.7 120 -630 -306 -840 Intake, IV 491.2 146.7 950 300 344 120 Intake, Oral 400 1620 120 500 Number 0 Bowel Movements Output, Chest 50 50 410 Tube Drainage Output, Urine 2400 1000 1150 550 Current Medications Sig/Suleman Start time Last Medication Dose Route Stop Time Status Admin Albuterol Sulfate 3 ML BID 06/15 220 AC 06/16 INH 0746 Albuterol Sulfate 3 ML Q4P PRN 06/13 1130 DC INH Ampicillin Sodium/ 3,000 MG Q8H 06/13 1200 AC 06/16 Sulbactam Sodium IV 0535 Sodium Chloride 100 ML Aspirin Buffered 650 MG DAILY 06/13 1000 AC 06/16 PO 0749 Atorvastatin Calcium 40 MG 1700 06/15 1700 AC 06/15 PO 1748 Docusate Sodium 100 MG BID 06/12 2359 AC 06/16 PO 0749 Furosemide 40 MG DAILY 06/13 1000 AC 06/16 PO 0749 Heparin Sodium 5,000 UNIT .STK-MED ONE 06/15 2045 DC (Porcine) IV 06/15 2046 Heparin Sodium 4,588 UNIT 18306/15 183 DC 06/15 (Porcine) IV 06/15 183 2155 Heparin Sodium 25,000 UNIT Q24H 06/13 2100 AC 06/15 (Porcine) IV 1847 Sodium Chloride 500 ML Insulin Aspart 0 TIDAC/HS 06/14 2100 AC 06/16 SC 0748 Insulin Detemir 35 UNITS BID 06/15 2200 AC 06/16 SC 0747 Insulin Detemir 40 UNITS BID 06/13 1000 DC 06/15 SC 0951 Nitroglycerin 0.5 GM Q6P PRN 06/15 1830 AC TOP Oxycodone HCl 20 MG Q12 PRN 06/13 1215 AC 06/15 PO 1118 Potassium Chloride 40 MEQ BID 06/12 2359 AC 06/16 PO 0749 Pregabalin 75 MG BID 06/13 2200 AC 06/16 PO 0748 Tiotropium [place] 1 PUF DAILY 06/14 1000 AC 06/16 INH 0750 Laboratory Tests 06/16/17 0644: Anion Gap 14, Estimated GFR 15 L, BUN/Creatinine Ratio 25.6 H, CBC w Diff NO MAN DIFF REQ, RBC 3.23 L, MCV 97.4, MCH 32.5 H, RDW 14.7 H, MPV 6.6 L, Gran % 95.0 H, Lymphocytes % 3.8 L, Monocytes % 0.7 L, Eosinophils % 0.5, Basophils % 0, Absolute Granulocytes 27.2 H, Absolute Lymphocytes 1.1 L, Absolute Monocytes 0.2, Absolute Eosinophils 0.2, Absolute Basophils 0, PUBS MCHC 33.3 06/16/17 0030: APTT 77 H 06/15/17 1931: Lactic Acid Cancelled 06/15/17 1830: pH 7.30 *L, pCO2 33 L, pO2 82, HCO3 16 L, ABG O2 Sat (Measured) 94.0 L, P-50 (Temp Corrected) N, Carboxyhemoglobin 0.4 L, O2 Concentration % 4.5L, Temperature 98.0, O2 Delivery Method NC, Phlebotomy Draw Site RIGHT RADIAL 06/15/17 1725: Anion Gap 13, Estimated GFR 12 L, BUN/Creatinine Ratio 22.1, Lactic Acid 0.8 06/15/17 1550: APTT 59 H 06/15/17 0655: Anion Gap 18 H, Estimated GFR 11 L, BUN/Creatinine Ratio 21.9, APTT 92 H, CBC w Diff MAN DIFF ORDERED, RBC 3.20 L, MCV 97.5, MCH 32.1 H, RDW 14.7 H, MPV 6.9 L, Gran % 94.9 H, Lymphocytes % 3.2 L, Monocytes % 1.6 L, Eosinophils % 0.2, Basophils % 0.1, Absolute Granulocytes 31.2 H, Segmented Neutrophils 90 H , Band Neutrophils 2, Absolute Lymphocytes 1.1 L, Lymphocytes 5 L, Monocytes 3 , Absolute Monocytes 0.5, Absolute Eosinophils 0.1, Absolute Basophils 0, Platelet Estimate INCREASED, Anisocytosis 1+, PUBS MCHC 33.0, Random Vancomycin 15.7 06/14/17 2250: APTT 58 H 06/14/17 1044: APTT 90 H 06/14/17 0255: Anion Gap 13, Estimated GFR 10 L, Glucose 266 H, Calcium 8.8, Phosphorus 7.8 H, Magnesium 2.6 H, Total Bilirubin 0.2, AST 24, ALT 42, Albumin 2.5 L, Random Vancomycin 8.5 06/14/17 0255: Sodium Cancelled, Potassium Cancelled, Chloride Cancelled, Carbon Dioxide Cancelled, Anion Gap Cancelled, BUN Cancelled, Creatinine Cancelled, Glucose Cancelled, Calcium Cancelled, Phosphorus Cancelled, Magnesium Cancelled, Total Bilirubin Cancelled, AST Cancelled, ALT Cancelled, Albumin Cancelled, APTT 36, CBC w Diff MAN DIFF ORDERED, RBC 2.98 L, MCV 98.1, MCH 32.3 H, RDW 14.2, MPV 6.7 L, Gran % 95.8 H, Lymphocytes % 1.4 L, Monocytes % 2.8, Eosinophils % 0, Basophils % 0, Absolute Granulocytes 41.8 H, Segmented Neutrophils 94 H, Band Neutrophils 1, Absolute Lymphocytes 0.6 L, Lymphocytes 2 L, Monocytes 3, Absolute Monocytes 1.2 H, Absolute Eosinophils 0, Absolute Basophils 0, Platelet Estimate INCREASED, Polychromasia 1+, Hypochromic-Microcytic 1+, Anisocytosis 1+, PUBS MCHC 32.9 L, Random Vancomycin Cancelled 06/13/17 1728: Fluid WBC 32430 H, Fld Total RBCs Counted 28735 H 06/13/17 172: % Normal PMNs 95, Misc Hematology Test , Fluid Glucose 99, Fluid Total Protein 4.6, Fluid Albumin 1.9, Fluid LDH 3819, Fluid Amylase < 30 06/13/17 1727: Pleural pH 6.40 Microbiology 06/13 1728 BODY FLUID: Body Fluid Culture - RES 06/13 1728 BODY FLUID: Gram Stain - RES Microbiology 06/13 1728 BODY FLUID: Body Fluid Culture - RES 06/13 1728 BODY FLUID: Gram Stain - RES Vital Signs Date Time Temp Pulse Resp B/P B/P Pulse O2 O2 Flow FiO2 Mean Ox Delivery Rate 06/16 0816 93 Nasal 4.0L Cannula 06/16 0800 Nasal 4.5L Cannula 06/16 0652 99.0 73 20 164/68 94 Nasal Cannula 06/15 2233 99.4 77 20 120/70 95 06/15 2201 Nasal 4.5L Cannula 06/15 1845 94 Nasal 4.5L Cannula 06/15 1600 Nasal 5.0L Cannula 06/15 1510 98.0 80 18 142/70 94
--- NOTE | 2017-06-16 11:51 | Event Note ---
Event Note Event Note: ALTEPLASE 10MG/20ML NS INJECTED INTO RIGHT PLEUR-X CHEST TUBE AND CLAMPED. WILL REMAIN CLAMPED FOR 2HRS AND PLACED BACK TO [facility]. WILL REPEAT 06/17 AND 06/[address] JENNINGS PATIENT TOLERATED PROCEDURE WELL.
--- NOTE | 2017-06-16 12:42 | RADIOLOGY REPORT ---
EXAMINATION: XR PORTABLE CHEST CLINICAL INFORMATION: Re-collection of fluid post drainage. COMPARISON: Chest CT 06/14/2017 TECHNIQUE: Portable frontal view of the chest was obtained. FINDINGS: Stable cardiomediastinal silhouette. Opacity along the right medial upper lung zone likely represents loculated pleural fluid. Similar small to moderate right pleural effusion with associated right basilar airspace disease. The left lung is grossly clear. No pneumothorax. Compared to the prior study, the pigtail chest tube has been retracted with some the sideholes appearing in the subcutaneous tissues. No acute osseous abnormality. IMPRESSION: Interval retraction of the right pigtail chest tube with some the sideholes now seen within the subcutaneous tissues tissues. Small to moderate right pleural effusion.
--- NOTE | 2017-06-16 12:59 | PN- Pulmonary ---
Subjective HPI/Critical Care Issues: Lytics introduced into right chest catheter for treatment of empyema secondary to H. influenzae. Chest x-ray suggests the tube may have partially migrated out of the chest with some sideholes now and soft tissue Objective Current Medications: Current Medications Sig/Suleman Start time Last Medication Dose Route Stop Time Status Admin Albuterol Sulfate 3 ML BID 06/15 2200 AC 06/16 INH 0746 Albuterol Sulfate 3 ML Q4P PRN 06/13 1130 DC INH Alteplase, 10 MG ONCE ONE 06/16 1100 DC 06/16 Recombinant IV 06/16 1101 1147 Sodium Chloride 20 ML Ampicillin Sodium/ 3,000 MG Q8H 06/13 1200 AC 06/16 Sulbactam Sodium IV 1111 Sodium Chloride 100 ML Aspirin Buffered 650 MG DAILY 06/13 1000 AC 06/16 PO 0749 Atorvastatin Calcium 40 MG 1700 06/15 1700 AC 06/15 PO 1748 Docusate Sodium 100 MG BID 06/12 2359 AC 06/16 PO 0749 Furosemide 40 MG DAILY 06/13 1000 AC 06/16 PO 0749 Heparin Sodium 5,000 UNIT .STK-MED ONE 06/15 2045 DC (Porcine) IV 06/15 204 Heparin Sodium 4,588 UNIT 1830 06/15 1830 DC 06/15 (Porcine) IV 06/15 1831 2155 Heparin Sodium 25,000 UNIT Q24H 06/13 2100 AC 06/15 (Porcine) IV 1847 Sodium Chloride 500 ML Insulin Aspart 0 TIDAC/HS 06/14 2100 AC 06/16 SC 1130 Insulin Detemir 30 UNITS BID 06/16 2200 AC SC Insulin Detemir 35 UNITS BID 06/15 2200 DC 06/16 SC 0747 Insulin Detemir 40 UNITS BID 06/13 1000 DC 06/15 SC 0951 Nitroglycerin 0.5 GM Q6P PRN 06/15 1830 AC TOP Non-Formulary 0 SEE ADMIN CRITERIA 06/16 1045 CAN Medication ANY Oxycodone HCl 20 MG Q12 PRN 06/13 1215 AC 06/15 PO 1118 Potassium Chloride 40 MEQ BID 06/12 2359 AC 06/16 PO 0749 Pregabalin 75 MG BID 06/13 2200 AC 06/16 PO 0748 Tiotropium [place] 1 PUF DAILY 06/14 1000 AC 06/16 INH 0750 Vital Signs & I&O Last 24 Hrs of Vitals and I&O: Vital Signs Date Time Temp Pulse Resp B/P B/P Pulse O2 O2 Flow FiO2 Mean Ox Delivery Rate 06/16 0816 93 Nasal 4.0L Cannula 06/16 0800 Nasal 4.5L Cannula 06/16 0652 99.0 73 20 164/68 94 Nasal Cannula 06/15 2233 99.4 77 20 120/70 95 06/15 2201 Nasal 4.5L Cannula 06/15 1845 94 Nasal 4.5L Cannula 06/15 1600 Nasal 5.0L Cannula 06/15 1510 98.0 80 18 142/70 94 Intake & Output 06/16 1600 06/16 0800 06/16 0000 Intake Total 891.2 146.7 Output Total Balance 891.2 146.7 Intake, IV 491.2 146.7 Intake, Oral 400 Saturation 4 L 93% exam of chest shows persistent diminished breath sounds over the right posterior chest cardiac exam shows regular S1 and S2 without murmurs Impression/Plan Impression/Plan Impression/Plan: 61-year-old with right-sided empyema status post right chest drainage. Significance of urinary MRSA is unclear persistent effusion on CAT scan status post introduction of intrapleural lytics Recommendations: Please have interventional radiology evaluate placement of catheter as it appears to have migrated partially out of the chest. Continue antibiotics and lytics per CT surgery. taper FiO2 as saturations allow
--- NOTE | 2017-06-16 13:05 | PN- Infect Dx ---
Subjective Subjective: Afebrile. She feels improved, with decreased shortness of breath, though still reports right-sided chest pain and a mild cough. She also notes continued pain in the right knee. Objective Last 24 Hrs of Vital Signs/I&O Vital Signs Date Time Temp Pulse Resp B/P B/P Pulse O2 O2 Flow FiO2 Mean Ox Delivery Rate 06/16 0816 93 Nasal 4.0L Cannula 06/16 0800 Nasal 4.5L Cannula 06/16 0652 99.0 73 20 164/68 94 Nasal Cannula 06/15 2233 99.4 77 20 120/70 95 06/15 2201 Nasal 4.5L Cannula 06/15 1845 94 Nasal 4.5L Cannula 06/15 1600 Nasal 5.0L Cannula 06/15 1510 98.0 80 18 142/70 94 Intake & Output 06/16 1600 06/16 0800 06/16 0000 Intake Total 891.2 146.7 Output Total Balance 891.2 146.7 Intake, IV 491.2 146.7 Intake, Oral 400 Physical Exam Other Physical Findings: She appears comfortable in no acute distress Lungs decreased breath sounds at the right base; pigtail catheter in place with 50 mL output yesterday Heart regular rhythm with no murmur Extremities chronic venous stasis changes to the right lower extremity Guzman catheter remains in place Results Last 24 Hours of Lab Results: Laboratory Tests 06/16 06/16 06/16 1225 0644 0030 Chemistry Sodium (137 - 145 mmol/L) 142 Potassium (3.5 - 5.1 mmol/L) 4.5 Chloride (98 - 107 mmol/L) 109 H Carbon Dioxide (22 - 30 mmol/L) 19 L Anion Gap (5 - 16) 14 BUN (7 - 17 mg/dL) 82 H Creatinine (0.5 - 1.0 mg/dL) 3.2 H Estimated GFR (>60 ml/min) 15 L BUN/Creatinine Ratio (7 - 25 %) 25.6 H Coagulation APTT (25 - 37 SEC) Pending 77 H Hematology CBC w Diff NO MAN DIFF REQ WBC (4.8 - 10.8 /CUMM) 28.6 H RBC (4.20 - 5.40 /CUMM) 3.23 L Hgb (12.0 - 16.0 G/DL) 10.5 L Hct (37 - 47 %) 31.5 L MCV (81.0 - 99.0 FL) 97.4 MCH (27.0 - 31.0 PG) 32.5 H RDW (11.5 - 14.5 %) 14.7 H Plt Count (130 - 400 /CUMM) 532 H MPV (7.4 - 10.4 FL) 6.6 L Gran % (42.2 - 75.2 %) 95.0 H Lymphocytes % (20.5 - 51.1 %) 3.8 L Monocytes % (1.7 - 9.3 %) 0.7 L Eosinophils % (0 - 5 %) 0.5 Basophils % (0.0 - 2.0 %) 0 Absolute Granulocytes (1.4 - 6.5 /CUMM) 27.2 H Absolute Lymphocytes (1.2 - 3.4 /CUMM) 1.1 L Absolute Monocytes (0.10 - 0.60 /CUMM) 0.2 Absolute Eosinophils (0.0 - 0.7 /CUMM) 0.2 Absolute Basophils (0.0 - 0.2 /CUMM) 0 PUBS MCHC (33.0 - 37.0 G/DL) 33.3 06/15 06/15 06/15 06/15 1931 1830 1725 1550 Blood Gas pH (7.35 - 7.45 PH) 7.30 *L pCO2 (35 - 45 TORR) 33 L pO2 (80 - 100 TORR) 82 HCO3 (21 - 28 MEQ/L) 16 L ABG O2 Sat (Measured) (>96.0 %) 94.0 L P-50 (Temp Corrected) N Carboxyhemoglobin (1.5 - 5.0 %) 0.4 L O2 Concentration % 4.5L Temperature (97.0 - 100.0 FARH) 98.0 O2 Delivery Method NC Chemistry Sodium (137 - 145 mmol/L) 144 Potassium (3.5 - 5.1 mmol/L) 4.4 Chloride (98 - 107 mmol/L) 111 H Carbon Dioxide (22 - 30 mmol/L) 20 L Anion Gap (5 - 16) 13 BUN (7 - 17 mg/dL) 86 H Creatinine (0.5 - 1.0 mg/dL) 3.9 H Estimated GFR (>60 ml/min) 12 L BUN/Creatinine Ratio (7 - 25 %) 22.1 Lactic Acid (0.7 - 2.1 mmol/L) Cancelled 0.8 Coagulation APTT (25 - 37 SEC) 59 H Miscellaneous Phlebotomy Draw Site RIGHT RADIAL Last 24 Hours of Drew Results: Right pleural fluid culture June 13 negative Recent Imaging Studies: X-ray of the right knee June 16 severe tricompartmental osteoarthritis Chest x-ray June 16 reveals loculated pleural fluid with a small to moderate right pleural effusion and associated right basilar airspace disease Assessment/Plan Impression: Persistent leukocytosis, though she remains afebrile, on Unasyn, status post placement of a pigtail catheter in the right chest 3 days ago for an empyema, with Haemophilus influenza isolated from the blood culture but with the pleural fluid culture remaining negative. Her chest x-ray suggests undrained fluid, which likely explains her persistent leukocytosis, and she was given lytics earlier today. The x-ray of her right knee reveals osteoarthritis, which likely explains her pain. Suggestion: 1. Further lytics and management of her empyema per Thoracic surgery 2. Remove Guzman catheter 3. Continue Unasyn
[2017-06-16 14:02] VITALS: BP 162/60
[2017-06-16 14:30] VITALS: BP 162/60
[2017-06-16 14:48] LABS: PTT 57 SEC (25-37)
[2017-06-16 17:56] VITALS: BP 168/70
[2017-06-16 23:18] VITALS: BP 128/60
[2017-06-17 00:25] LABS: PTT 70 SEC (25-37)
[2017-06-17 06:56] VITALS: BP 160/78
--- NOTE | 2017-06-17 08:02 | PN- Diabetes ---
Assessment/Plan Assessment: The patient is alert this morning. She states she does not feel well. She had a chest tube inserted. There is drainage although some of the fluid may be loculated. Her white blood count is coming down. The patient's fingerstick blood sugar this morning is 153. The patient is on Levemir 30 units twice a day as well as sliding scale NovoLog. The patient's blood sugars became elevated yesterday. Fingerstick blood sugars yesterday were 167 before breakfast, 267 before lunch, 310 before dinner, and 264 at bedtime. This morning her fingerstick blood sugar was 248. Plan: Suggest increase Levemir back to 35 units twice a day. We need also to adjust the patient sliding-scale NovoLog before meals. Sliding-scale NovoLog before meals should be 80-150 give 6 units, 151-200 give 8 units, 201-250 give 10 units, 251-300 give 11 units, 301-350 give 12 units, 351- 400 give 13 units. The separate bedtime sinus scale NovoLog should stay as written. Subjective Subjective: Does not feel well Review of Systems Constitutional: Denies: chills, fever. Cardiovascular: Reports: chest pain (right chest). Respiratory: Reports: short of breath. Gastrointestinal: Denies: abdominal pain, nausea, vomiting. Skin: Reports: no symptoms. Objective Last 24 Hrs of Vital Signs/I&O Vital Signs Date Time Temp Pulse Resp B/P B/P Pulse O2 O2 Flow FiO2 Mean Ox Delivery Rate 06/17 0656 98.8 92 22 160/78 93 Nasal Cannula 06/17 0000 95 Nasal 4.5L Cannula 06/16 2318 98.2 92 20 128/60 92 Nasal Cannula 06/16 1756 81 168/70 06/16 1600 Nasal 4.5L Cannula 06/16 1430 98.9 71 20 162/60 94 Nasal 4.5L Cannula 06/16 1402 98.9 71 20 162/60 94 Nasal 4.5L Cannula 06/16 0816 93 Nasal 4.0L Cannula Intake & Output 06/17 1600 06/17 0800 06/17 0000 Intake Total 520.4 1125 Output Total 985 750 Balance -464.6 375 Intake, IV 320.4 575 Intake, Oral 200 550 Number 1 Bowel Movements Output, Chest 135 Tube Drainage Output, Urine 850 750 Vital Signs Date Time Temp Pulse Resp B/P B/P Pulse O2 O2 Flow FiO2 Mean Ox Delivery Rate 06/17 0656 98.8 92 22 160/78 93 Nasal Cannula 06/17 0000 95 Nasal 4.5L Cannula 06/16 2318 98.2 92 20 128/60 92 Nasal Cannula 06/16 1756 81 168/70 06/16 1600 Nasal 4.5L Cannula 06/16 1430 98.9 71 20 162/60 94 Nasal 4.5L Cannula 06/16 1402 98.9 71 20 162/60 94 Nasal 4.5L Cannula 06/16 0816 93 Nasal 4.0L Cannula Intake & Output 06/17 1600 06/17 0800 06/17 0000 Intake Total 520.4 1125 Output Total 985 750 Balance -464.6 375 Intake, IV 320.4 575 Intake, Oral 200 550 Number 1 Bowel Movements Output, Chest 135 Tube Drainage Output, Urine 850 750 Physical Exam General Appearance: alert, awake, mild distress Head: normal appearance Respiratory: decreased breath sounds (right base) Cardiovascular: regular rate/rhythm Abdomen: normal bowel sounds, soft Current Medications: Current Medications Sig/Suleman Start time Last Medication Dose Route Stop Time Status Admin Acetaminophen 1,000 MG ONCE ONE 06/16 1915 DC 06/16 N/A 1 UNIT IV 06/16 1929 1923 Albuterol Sulfate 3 ML BID 06/15 2200 AC 06/17 INH 0753 Alteplase, 10 MG ONCE ONE 06/16 1100 DC 06/16 Recombinant IV 06/16 1101 1147 Sodium Chloride 20 ML Ampicillin Sodium/ 3,000 MG Q8H 06/13 1200 AC 06/17 Sulbactam Sodium IV 0426 Sodium Chloride 100 ML Aspirin Buffered 650 MG DAILY 06/13 1000 AC 06/16 PO 0749 Atorvastatin Calcium 40 MG 1700 06/15 1700 AC 06/16 PO 1742 Docusate Sodium 100 MG BID 06/12 2359 AC 06/16 PO 2059 Furosemide 40 MG DAILY 06/13 1000 AC 06/16 PO 0749 Heparin Sodium 4,500 UNIT ONCE ONE 06/16 1630 DC 06/16 (Porcine) IV 06/16 1631 1631 Heparin Sodium 5,000 UNIT .STK-MED ONE 06/16 1610 DC (Porcine) IV 06/16 1611 Heparin Sodium 25,000 UNIT .STK-MED ONE 06/16 0927 DC (Porcine) IV 06/16 0928 Heparin Sodium 25,000 UNIT Q24H 06/13 2100 AC 06/16 (Porcine) IV 06/17 1000 2052 Sodium Chloride 500 ML Hydromorphone HCl 0.2 MG Q6-PRN PRN 06/16 1615 AC 06/17 IV 0438 Insulin Aspart 0 TIDAC/HS 06/14 2100 AC 06/16 SC 2228 Insulin Detemir 30 UNITS BID 06/16 2200 AC 06/16 SC 2110 Insulin Detemir 35 UNITS BID 06/15 2200 DC 06/16 SC 0747 Nitroglycerin 0.5 GM Q6P PRN 06/15 1830 AC TOP Non-Formulary 0 SEE ADMIN CRITERIA 06/16 1045 CAN Medication ANY Oxycodone HCl 20 MG Q12 PRN 06/16 2200 AC 06/16 PO 2111 Oxycodone HCl 20 MG Q8P PRN 06/16 1545 DC PO Oxycodone HCl 20 MG Q12 PRN 06/13 1215 DC 06/16 PO 1450 Oxycodone/ 1 TAB ONCE ONE 06/16 1745 DC 06/16 Acetaminophen PO 06/16 1746 1747 Potassium Chloride 40 MEQ BID 06/12 2359 AC 06/16 PO 2058 Pregabalin 75 MG BID 06/13 2200 AC 06/16 PO 211 Tiotropium [place] 1 PUF DAILY 06/14 1000 AC 06/16 INH 0750 Findings Pertinent Lab/Drew Results: Laboratory Tests 06/17 06/16 06/16 0616 2319 1342 Chemistry Sodium Pending Potassium Pending Chloride Pending Carbon Dioxide Pending Anion Gap Pending BUN Pending Creatinine Pending BUN/Creatinine Ratio Pending Coagulation APTT (25 - 37 SEC) Pending 70 H 57 H Hematology CBC w Diff Pending WBC Pending RBC Pending Hgb Pending Hct Pending MCV Pending MCH Pending RDW Pending Plt Count Pending MPV Pending PUBS MCHC Pending
[2017-06-17 08:06] LABS: ABSOLUTE BASOPHIL COUNT 0 /CUMM (0.0-0.2); ABSOLUTE MONOCYTE COUNT 0.2 /CUMM (0.10-0.60); BASOPHIL % 0.1 % (0.0-2.0); MEAN PLATELET VOLUME 7.2 FL (7.4-10.4); RBC DISTRIBUTION WIDTH 14.5 % (11.5-14.5)
--- NOTE | 2017-06-17 08:13 | PN- Pulmonary ---
Subjective HPI/Critical Care Issues: There is scant drainage from right chest wall catheter which has migrated and will be replaced later today. Patient's oxygen requirements are improving now on 4 L. Objective Current Medications: Current Medications Sig/Suleman Start time Last Medication Dose Route Stop Time Status Admin Acetaminophen 1,000 MG ONCE ONE 06/16 1915 DC 06/16 N/A 1 UNIT IV 06/16 1929 1923 Albuterol Sulfate 3 ML BID 06/15 2200 AC 06/17 INH 0753 Alteplase, 10 MG ONCE ONE 06/16 1100 DC 06/16 Recombinant IV 06/16 1101 1147 Sodium Chloride 20 ML Ampicillin Sodium/ 3,000 MG Q8H 06/13 1200 AC 06/17 Sulbactam Sodium IV 0426 Sodium Chloride 100 ML Aspirin Buffered 650 MG DAILY 06/13 1000 AC 06/16 PO 0749 Atorvastatin Calcium 40 MG 1700 06/15 1700 06/16 PO 1742 Docusate Sodium 100 MG BID 06/12 2359 AC 06/16 PO 2059 Furosemide 40 MG DAILY 06/13 1000 AC 06/16 PO 0749 Heparin Sodium 4,500 UNIT ONCE ONE 06/16 1630 DC 06/16 (Porcine) IV 06/16 1631 1631 Heparin Sodium 5,000 UNIT .STK-MED ONE 06/16 1610 DC (Porcine) IV 06/16 1611 Heparin Sodium 25,000 UNIT .STK-MED ONE 06/16 0927 DC (Porcine) IV 06/16 0928 Heparin Sodium 25,000 UNIT Q24H 06/13 2100 AC 06/16 (Porcine) IV 06/17 1000 2052 Sodium Chloride 500 ML Hydromorphone HCl 0.2 MG Q6-PRN PRN 06/16 1615 AC 06/17 IV 0438 Insulin Aspart 0 TIDAC/HS 06/14 2100 AC 06/16 SC 2228 Insulin Detemir 30 UNITS BID 06/16 2200 AC 06/16 SC 2110 Insulin Detemir 35 UNITS BID 06/15 2200 ND 06/16 SC 0747 Nitroglycerin 0.5 GM Q6P PRN 06/15 1830 AC TOP Non-Formulary 0 SEE ADMIN CRITERIA 06/16 1045 CAN Medication ANY Oxycodone HCl 20 MG Q12 PRN 06/16 2200 AC 06/16 PO 2112 Oxycodone HCl 20 MG Q8P PRN 06/16 1545 DC PO Oxycodone HCl 20 MG Q12 PRN 06/13 1215 DC 06/16 PO 1450 Oxycodone/ 1 TAB ONCE ONE 06/16 1745 DC 06/16 Acetaminophen PO 06/16 1746 1747 Potassium Chloride 40 MEQ BID 06/12 2359 AC 06/16 PO 9 Pregabalin 75 MG BID 06/13 2200 AC 06/16 PO 211 Tiotropium [place] 1 PUF DAILY 06/14 1000 AC 06/16 INH 0750 Vital Signs & I&O Last 24 Hrs of Vitals and I&O: Vital Signs Date Time Temp Pulse Resp B/P B/P Pulse O2 O2 Flow FiO2 Mean Ox Delivery Rate 06/17 0806 92 Nasal 4.0L Cannula 06/17 0656 98.8 92 22 160/78 93 Nasal Cannula 06/17 0000 95 Nasal 4.5L Cannula 06/16 2318 98.2 92 20 128/60 92 Nasal Cannula 06/16 1756 81 168/70 06/16 1600 Nasal 4.5L Cannula 06/16 1430 98.9 71 20 162/60 94 Nasal 4.5L Cannula 06/16 1402 98.9 71 20 162/60 94 Nasal 4.5L Cannula 06/16 0816 93 Nasal 4.0L Cannula Intake & Output 06/17 1600 06/17 0800 06/17 0000 Intake Total 520.4 1125 Output Total 985 750 Balance -464.6 375 Intake, IV 320.4 575 Intake, Oral 200 550 Number 1 Bowel Movements Output, Chest 135 Tube Drainage Output, Urine 850 750 Since saturation 4 L 92% exam for chest continues to show markedly diminished breath sounds over the right posterior hemithorax exam shows a regular S1 and S2 without murmurs Impression/Plan Impression/Plan Impression/Plan: 61-year-old with right-sided empyema secondary to community-acquired pneumonia with associated sepsis. Patient is on heparin for DVT. Catheter has migrated will be replaced later this afternoon. Recommendations: Please have interventional radiology evaluate placement of catheter as it appears to have migrated partially out of the chest. This is scheduled for this afternoon Continue antibiotics and lytics per CT surgery. taper FiO2 as saturations allow . Repeat LFTs
[2017-06-17 08:20] LABS: ABSOLUTE EOSINOPHIL COUNT 0.1 /CUMM (0.0-0.7); ABSOLUTE GRANULOCYTE CT 44.5 /CUMM (1.4-6.5); ABSOLUTE LYMPH COUNT 1.4 /CUMM (1.2-3.4); EOSINOPHIL % 0.2 % (0-5); GRANULOCYTE % 96.2 % (42.2-75.2); HEMATOCRIT 35.4 % (37-47); MEAN CORPUSCULAR HGB 32.5 PG (27.0-31.0); MEAN CORPUSCULAR HGB CONC 33.5 G/DL (33.0-37.0); PLATELET COUNT 547 /CUMM (130-400); RED BLOOD CELL CT 3.65 /CUMM (4.20-5.40)
[2017-06-17 08:23] LABS: PTT 61 SEC (25-37)
[2017-06-17 08:47] LABS: WHITE BLOOD CELL COUNT 46.3 /CUMM (4.8-10.8)
--- NOTE | 2017-06-17 10:39 | PN- Infect Dx ---
Subjective Subjective: Afebrile. She complains of shortness of breath and right-sided chest pain, with a minimal cough. She denies any dysuria since removal of the Guzman catheter. Objective Last 24 Hrs of Vital Signs/I&O Vital Signs Date Time Temp Pulse Resp B/P B/P Pulse O2 O2 Flow FiO2 Mean Ox Delivery Rate 06/17 0806 92 Nasal 4.0L Cannula 06/17 0656 98.8 92 22 160/78 93 Nasal Cannula 06/17 0000 95 Nasal 4.5L Cannula 06/16 2318 98.2 92 20 128/60 92 Nasal Cannula 06/16 1756 81 168/70 06/16 1600 Nasal 4.5L Cannula 06/16 1430 98.9 71 20 162/60 94 Nasal 4.5L Cannula 06/16 1402 98.9 71 20 162 94 Nasal 4.5L Cannula Intake & Output 06/17 1600 06/17 0800 06/17 0000 Intake Total 520.4 1125 Output Total 985 750 Balance -464.6 375 Intake, IV 320.4 575 Intake, Oral 200 550 Number 1 Bowel Movements Output, Chest 135 Tube Drainage Output, Urine 850 750 Physical Exam Other Physical Findings: She appears comfortable in no acute distress Lungs decreased breath sounds at the right base; pigtail catheter in place with 40 mL output yesterday and 135 mL output overnight Heart regular rhythm with no murmur Back no CVA tenderness Results Last 24 Hours of Lab Results: Laboratory Tests 06/17 06/16 06/16 0616 2319 1342 Chemistry Sodium (137 - 145 mmol/L) 138 Potassium (3.5 - 5.1 mmol/L) 5.3 H Chloride (98 - 107 mmol/L) 108 H Carbon Dioxide (22 - 30 mmol/L) 15 L Anion Gap (5 - 16) 15 BUN (7 - 17 mg/dL) 74 H Creatinine (0.5 - 1.0 mg/dL) 3.1 H Estimated GFR (>60 ml/min) 15 L BUN/Creatinine Ratio (7 - 25 %) 23.9 Coagulation APTT (25 - 37 SEC) 61 H 70 H 57 H Hematology CBC w Diff MAN DIFF ORDERED WBC (4.8 - 10.8 /CUMM) 46.3 *H RBC (4.20 - 5.40 /CUMM) 3.65 L Hgb (12.0 - 16.0 G/DL) 11.9 L Hct (37 - 47 %) 35.4 L MCV (81.0 - 99.0 FL) 97.0 MCH (27.0 - 31.0 PG) 32.5 H RDW (11.5 - 14.5 %) 14.5 Plt Count (130 - 400 /CUMM) 547 H MPV (7.4 - 10.4 FL) 7.2 L Gran % (42.2 - 75.2 %) 96.2 H Lymphocytes % (20.5 - 51.1 %) 3.0 L Monocytes % (1.7 - 9.3 %) 0.5 L Eosinophils % (0 - 5 %) 0.2 Basophils % (0.0 - 2.0 %) 0.1 Absolute Granulocytes (1.4 - 6.5 /CUMM) 44.5 H Segmented Neutrophils (42.2 - 75.2 %) 87 H Band Neutrophils (0.0 - 5.0 %) 5 Absolute Lymphocytes (1.2 - 3.4 /CUMM) 1.4 Lymphocytes (20.5 - 51.1 %) 4 L Monocytes (1.7 - 9.3 %) 2 Absolute Monocytes (0.10 - 0.60 /CUMM) 0.2 Absolute Eosinophils (0.0 - 0.7 /CUMM) 0.1 Absolute Basophils (0.0 - 0.2 /CUMM) 0 Metamyelocytes (0.0 - 1.0 %) 1 Myelocytes (0 - 0 %) 1 H Platelet Estimate (ADEQUATE) INCREASED Anisocytosis 1+ PUBS MCHC (33.0 - 37.0 G/DL) 33.5 Last 24 Hours of Drew Results: No new cultures Assessment/Plan Impression: Worsening leukocytosis, likely secondary to undrained empyema in the right chest , with her chest x-ray yesterday revealing interval retraction of the pigtail chest tube and a moderate right pleural effusion, and she is scheduled for repositioning or replacement of the catheter by IR later today. She does remain afebrile on Unasyn for Haemophilus influenzae isolated from the blood culture but with the pleural fluid culture remaining negative. Suggestion: 1. Await repositioning/replacement of the pigtail catheter by IR later today 2. Further lytics per Thoracic surgery 3. Continue Unasyn
--- NOTE | 2017-06-17 10:54 | PN- Housestaff ---
Subjective Follow-up For: acute hypoxic respiratory failure secondary to pneumonia/empyema Tele-Events Since Last Visit: nsr 80-98 Subjective: Patient has been quite uncomfortable. She had severe pain in her chest around the area of the effusion and chest tube and required IV tylenol to good effect. This morning she says she is in pain still but is in less distress. she has chest tube placement set for today. heparin off starting at 10am. yesterday she refused vq scan and echo due to pain on lying down. patient has been sleeping in a sitting position to avoid this pain. Review of Systems Constitutional: Reports: weakness. EENTM: Reports: no symptoms. Cardiovascular: Reports: chest pain. Respiratory: Reports: short of breath. Gastrointestinal: Reports: no symptoms. Genitourinary: Reports: no symptoms. Musculoskeletal: Reports: no symptoms. Skin: Reports: no symptoms. Neurological/Psychological: Reports: no symptoms. Hematologic/Endocrine: Reports: no symptoms. Immunologic/Allergic: Reports: no symptoms. Objective Last 24 Hrs of Vital Signs/I&O Vital Signs Date Time Temp Pulse Resp B/P B/P Pulse O2 O2 Flow FiO2 Mean Ox Delivery Rate 06/17 2209 98.4 95 20 130/70 95 06/17 1942 94 Nasal 4.0L Cannula 06/17 1600 Nasal 4.5L Cannula 06/17 1548 98.7 110 20 182/90 94 Nasal 7.0L Cannula 06/17 1239 97.5 100 24 158/70 06/17 0806 92 Nasal 4.0L Cannula 06/17 0800 Nasal 4.5L Cannula 06/17 0656 98.8 92 22 160/78 93 Nasal Cannula 06/17 0000 95 Nasal 4.5L Cannula 06/16 2318 98.2 92 20 128/60 92 Nasal Cannula Intake & Output 06/17 1600 06/17 0800 06/17 0000 Intake Total 813.6 520.4 1125 Output Total 200 985 750 Balance 613.6 -464.6 375 Intake, IV 213.6 320.4 575 Intake, Oral 600 200 550 Number 1 1 Bowel Movements Output, Chest 135 Tube Drainage Output, Urine 200 850 750 Physical Exam General Appearance: Alert, Oriented X3, Cooperative, Mild Distress Skin: No Rashes, No Breakdown, No Significant Lesion Skin Temp/Moisture Exam: Warm/Dry HEENT: Atraumatic Cardiovascular: Regular Rate, Normal S1, Normal S2, No Murmurs Lungs: Clear to Auscultation, Normal Air Movement Abdomen: Normal Bowel Sounds, Soft, No Tenderness Extremities: No Clubbing, No Cyanosis, Normal Pulses, left prosthetic and right edema Current Medications: Current Medications Sig/Suleman Start time Last Medication Dose Route Stop Time Status Admin Acetaminophen 1,000 MG Q6P PRN 06/17 1615 AC N/A 1 UNIT IV 06/18 1614 Acetaminophen 1,000 MG ONCE ONE 06/17 1000 DC 06/17 N/A 1 UNIT IV 06/17 1014 1014 Albuterol Sulfate 3 ML BID 06/15 2200 AC 06/17 INH 1940 Ampicillin Sodium/ 3,000 MG Q8H 06/17 1600 AC 06/17 Sulbactam Sodium IV 1700 Sodium Chloride 100 ML Ampicillin Sodium/ 3,000 MG Q8H 06/13 1200 DC 06/17 Sulbactam Sodium IV 0426 Sodium Chloride 100 ML Aspirin Buffered 650 MG DAILY 06/13 1000 AC 06/17 PO 1701 Atorvastatin Calcium 40 MG 1700 06/15 1700 AC 06/17 PO 1701 Docusate Sodium 100 MG BID 06/12 2359 AC 06/16 PO 2059 Furosemide 40 MG DAILY 06/13 1000 AC 06/17 PO 1701 Heparin Sodium 25,000 UNIT Q24H 06/17 1600 DC (Porcine) IV Sodium Chloride 500 ML Heparin Sodium 25,000 UNIT Q24H 06/17 1545 AC 06/17 (Porcine) IV 1703 Sodium Chloride 500 ML Heparin Sodium 25,000 UNIT Q24H 06/13 2100 DC 06/17 (Porcine) IV 06/17 1000 0833 Sodium Chloride 500 ML Hydromorphone HCl 0.2 MG Q6-PRN PRN 06/16 1615 06/17 IV 1229 Insulin Aspart 0 TIDAC/HS 06/14 2100 AC 06/17 SC 2156 Insulin Detemir 35 UNITS BID 06/17 2200 AC 06/17 SC 2159 Insulin Detemir 30 UNITS BID 06/16 2200 DC 06/17 SC 1018 Lorazepam 0 .STK-MED ONE 06/17 1420 DC .ROUTE Lorazepam 1 MG ONCE ONE 06/17 1315 DC 06/17 IV 06/17 1316 1345 Nitroglycerin 0.5 GM Q6P PRN 06/15 1830 AC TOP Oxycodone HCl 20 MG Q12 PRN 06/16 2200 DC 06/16 PO 2111 Potassium Chloride 40 MEQ BID 06/129 DC 06/16 PO 2058 Pregabalin 75 MG BID 06/13 2200 AC 06/17 PO 215 Tiotropium [place] 1 PUF DAILY 06/14 1000 AC 06/17 INH 1013 Last 24 Hrs of Lab/Drew Results Last 24 Hrs of Labs/Mics: Laboratory Tests 06/17/172199: APTT Pending 06/17/17 0616: Anion Gap 15, Estimated GFR 15 L, BUN/Creatinine Ratio 23.9, APTT 61 H, CBC w Diff MAN DIFF ORDERED, RBC 3.65 L, MCV 97.0, MCH 32.5 H, RDW 14.5, MPV 7.2 L, Gran % 96.2 H, Lymphocytes % 3.0 L, Monocytes % 0.5 L, Eosinophils % 0.2, Basophils % 0.1, Absolute Granulocytes 44.5 H, Segmented Neutrophils 87 H, Band Neutrophils 5, Absolute Lymphocytes 1.4, Lymphocytes 4 L, Monocytes 2, Absolute Monocytes 0.2, Absolute Eosinophils 0.1, Absolute Basophils 0, Metamyelocytes 1, Myelocytes 1 H, Platelet Estimate INCREASED, Anisocytosis 1+, PUBS MCHC 33.5 06/16/17 2319: APTT 70 H Assessment/Plan Assessment: Assessment 61-year-old woman, current smoker with a history of COPD, diabetes type 2 with diabetic neuropathy, left leg DVT status post IVC filter, chronic kidney disease , neuropathy and peripheral vascular disease, status post left BKA and amputations of the right first and third toes, last admitted to [facility] in September 2016 for cellulitis treated with cefazolin and discharged on Keflex, came for evaluation of chest pain of 4 days' duration associated with shortness of breath. Patient had drainage and Pleurx catheter drain placed on the for question of empyema. Fluid was found to not be grossly purulent. Fluid composition showed elevated WBCs, RBCs, pH 6.4, LDH of 3819. She is on Unasyn. She was found to have extremely elevated white blood cell count on admission of 44. Chest x-ray done after placement on 06/13 which showed persistent moderate volume of her right pleural effusion. Yesterday WBCs had decreased. Today have risen again. Patient refused VQ scan and echo yesterday due to pain. Was given IV tylenol to good effect. Patient has been quite tearful and in pain stating that she is scared. Plan #1 Acute hypoxic respiratory failure likely secondary to community-acquired pneumonia/empyema: Patient presented with pleuritic chest pain, leukocytosis with bandemia and evidence of opacity in the right hemithorax. Blood cultures positive Haemophilus. She was found to have an empyema which was drained with Pleurx catheter. Fluid was found to be exudative in nature. Catheter drainage thus far was 550 mL of serous sanguinous fluid. * White count again elevated, afebrile. * TRC nebs [id number]. Oxygen as needed, keep saturations above 92% * As placement of Pleurx catheter on chest x-ray from 06/13 is above the collection of fluid, surgery has ordered addition of lytic agent alteplase to aid in suction and removal of the fluid. Surgery will order this every day for the next 3 days. She can be restudied after that and if there is continued loculations with continued sepsis then thoracoscopy and drainage might be necessary. * Continue Unasyn * No growth pleural fluid so far * Patient was to have replacement of pigtail catheter in new position today to aid in removal of fluid. However, procedure was aborted due to patient combativeness and distress. She had been premedicated with ativan which did not work and refused another dose. * Re-attempt pigtail catheter tomorrow with help of anethesia. * Heparin stop tomorrow at 10am. It has been restarted for now. #2 Pleuritic chest pain with positive troponins: Patient had some new EKG changes. Chest pain was mostly pleuritic. Troponins trended down. Likely type II [place] in the setting of hypoxic respiratory failure which may be secondary to a pulmonary embolism. Clinically the patient has shortness of breath, pleuritic pain, low oxygen saturation consistent with empyema but also with pulmonary embolism. She was started on IV heparin in ED which is currently being continued. We are unable to get CTA in the setting of renal insufficiency. The patient has an IVC filter but of note this is not 100% reliable in the prevention of pulmonary embolism and of course does not help with an actual lower extremity thrombosis. * Troponins down * Continue IV heparin and aspirin and statin. * According to Dr. Lucas, if patient has precordial chest pain then can begin NTG paste 1/2 inch Q 6 hours. * According to Dr. Lucas, cardiology, myocardial ischemia cannot be 100% excluded and patient should have outpatient risk stratification with a stress test. #3 Urinary tract infection: Dirty urine, cultures positive for staph aureus * She has received an adequate course of Vancomycin for a lower urinary tract infection #4 Right knee pain: Patient notes a chronic moderate right knee pain. * Severe tricompartmental osteoarthritis seen on xray * Pain control with iv tylenol #5 Insulin-dependent diabetes mellitus: * Increase levemir to 35 units twice a day * Change sliding scale NovoLog as per endo. #6 Elevated proBNP at 2590. No previous echo on record. * Attempt echo again when patient is more calm. * Lasix 40mg * Daily weight checks. #7 Acute kidney injury on chronic kidney disease * Continue gentle hydration with IV fluids * Monitory BEP * Avoid nephrotoxins #8 Hyperkalemia * Stop kdur * Lasix will help with this -Pain Control -Diabetic diet -DVT prophylaxis with heparin and Alps on right leg -Full code Problem List: 1. Amputated above knee 2. CHRONIC RENAL FAILURE 3. Pleural effusion 4. Pneumonia 5. AMEYA (acute kidney injury) 6. Empyema Pain Ratin Pain Location: back and chest Pain Goal: Pain 4 or less Pain Plan: dilaudid and iv tylenol and oxycontin Tomorrow's Labs & Rationales: cbc bep
--- NOTE | 2017-06-17 12:25 | Cons- Thoracic Surgery ---
General Information and HPI Consulting Request Date of Consult: 06/16/17 Requested By: Wallace Hays MD Reason for Consult: Management of empyema status post drainage catheter Source of Information: patient, old records, PCP Exam Limitations: no limitations History of Present Illness: Patient is a 61-year-old woman with an extensive past medical history. She was admitted with significant dyspnea and a marked leukocytosis. Evaluation is shown right sided complicated fluid collection. Catheter drainage has shown an empyema with positive cultures. The catheter is been in place and thoracic surgical evaluation is asked for help in management and treatment. Allergies/Medications Allergies: Coded Allergies: NO KNOWN ALLERGIES (09/21/15) Home Med List: Alprazolam 0.25 MG TABLET 1 TAB PO BIDP PRN ANXIETY (Reported) Aspirin (Ecotrin*) 325 MG TABLET.DR 2 TAB PO DAILY HEART/BLOOD (Reported) Citalopram Hydrobromide (Citalopram HBr) 20 MG TABLET 1 TAB PO DAILY MENTAL HEALTH (Reported) Cyanocobalamin (Vitamin B-12) (B-12) 1,000 MCG TABLET 1 TAB PO DAILY SUPPLEMENT (Reported) Docusate Sodium (Colace) 100 MG CAPSULE 1 CAP PO BID STOOL SOFTENER (Reported ) Ergocalciferol (Vitamin D2) (Vitamin D2) 50,000 UNIT CAPSULE 1 CAP PO Q2W SUPPLEMENT (Reported) Furosemide 40 MG TABLET 40 MG PO DAILY DIURETIC (Reported) Insulin Aspart, Recombinant (Novolog Flexpen) 100 UNIT/ML INSULN.PEN DM ( Reported) Insulin Detemir (Levemir) 100 UNIT/ML VIAL 40 UNITS SC QAM DM (Reported) Insulin Detemir (Levemir) 100 UNIT/ML VIAL 60 UNITS SC QPM DM (Reported) Linagliptin (Tradjenta) 5 MG TABLET 1 TAB PO DAILY DM (Reported) Oxycodone HCl (Oxycontin) 80 MG TAB.ER.12H 1 TAB PO TID PRN PAIN (Reported) Pregabalin (Lyrica) 150 MG CAPSULE 1 CAP PO DAILY NERVE PAIN (Reported) Tiotropium [place] (Spiriva) 18 MCG CAP.W.DEV 1 CAP INH DAILY COPD (Reported) Current Medications: Current Medications Sig/Suleman Start time Last Medication Dose Route Stop Time Status Admin Acetaminophen 1,000 MG ONCE ONE 06/17 1000 DC 06/17 N/A 1 UNIT IV 06/17 1014 1014 Acetaminophen 1,000 MG ONCE ONE 06/16 1915 DC 06/16 N/A 1 UNIT IV 06/16 1929 1923 Albuterol Sulfate 3 ML BID 06/15 2200 AC 06/17 INH 0753 Ampicillin Sodium/ 3,000 MG Q8H 06/13 1200 DC 06/17 Sulbactam Sodium IV 0426 Sodium Chloride 100 ML Aspirin Buffered 650 MG DAILY 06/13 1000 AC 06/16 PO 0749 Atorvastatin Calcium 40 MG 1700 06/15 1700 AC 06/16 PO 1742 Docusate Sodium 100 MG BID 06/12 2359 AC 06/16 PO 2058 Furosemide 40 MG DAILY 06/13 1000 AC 06/16 PO 0749 Heparin Sodium 4,500 UNIT ONCE ONE 06/16 1630 DC 06/16 (Porcine) IV 06/16 1631 1631 Heparin Sodium 5,000 UNIT .STK-MED ONE 06/16 1610 DC (Porcine) IV 06/16 1611 Heparin Sodium 25,000 UNIT Q24H 06/13 2100 DC 06/17 (Porcine) IV 06/17 1000 0833 Sodium Chloride 500 ML Hydromorphone HCl 0.2 MG Q6-PRN PRN 06/16 1615 AC 06/17 IV 0438 Insulin Aspart 0 TIDAC/HS 06/14 2100 AC 06/17 SC 0841 Insulin Detemir 30 UNITS BID 06/16 2200 AC 06/17 SC 1018 Nitroglycerin 0.5 GM Q6P PRN 06/15 1830 AC TOP Oxycodone HCl 20 MG Q12 PRN 06/160 AC 06/16 PO 2112 Oxycodone HCl 20 MG Q8P PRN 06/16 1545 DC PO Oxycodone HCl 20 MG Q12 PRN 06/13 1215 DC 06/16 PO 1450 Oxycodone/ 1 TAB ONCE ONE 06/16 1745 DC 06/16 Acetaminophen PO 06/16 1746 1747 Potassium Chloride 40 MEQ BID 06/12 2359 AC 06/16 PO 2058 Pregabalin 75 MG BID 06/13 2200 AC 06/17 PO 1017 Tiotropium [place] 1 PUF DAILY 06/14 1000 AC 06/17 INH 1013 Past History Medical History Blood Transfusion Hx: No Neurological: peripheral neuropathy EENT: NONE Cardiovascular: hypertension, hyperlipidemia, PVD Respiratory: COPD Gastrointestinal: NONE Hepatic: NONE Renal: chronic kidney disease Psychiatric: depression Endocrine: diabetes Blood Disorders: DVT (left leg) Cancer(s): UTERINE CANCER 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 Home Who Do You Live With? child Services at Home: Nursing Smoking Status: Current Everyday Smoker ETOH Use: denies use Illicit Drug Use: denies illicit drug use Functional Ability ADLs Independent: dressing, eating, toileting, bathing. Ambulation: cane IADLs Needs Assist: shopping, housework. Review of Systems Review of Systems: Is notable for her increasing dyspnea with right-sided pleuritic chest pain which is improved since admission. She has had a cough productive of occasional yellow sputum. There is been noted frequency and foul-smelling urine. She denies any fevers as an outpatient. She has no chills. There is been no anginal type chest pain. The rest for 12 point review of systems is unremarkable. Exam & Diagnostic Data Vital Signs and I&O Vital Signs Date Time Temp Pulse Resp B/P B/P Pulse O2 O2 Flow FiO2 Mean Ox Delivery Rate 06/17 0806 92 Nasal 4.0L Cannula 06/17 0800 Nasal 4.5L Cannula 06/17 0656 98.8 92 22 160/78 93 Nasal Cannula 06/17 0000 95 Nasal 4.5L Cannula 06/16 2318 98.2 92 20 128/60 92 Nasal Cannula 06/16 1756 81 168/70 06/16 1600 Nasal 4.5L Cannula 06/16 1430 98.9 71 20 162/60 94 Nasal 4.5L Cannula 06/16 1402 98.9 71 20 162/60 94 Nasal 4.5L Cannula Intake & Output 06/17 1600 06/17 0800 06/17 0000 06/16 1600 06/16 0800 06/16 0000 Intake Total 520.4 1125 1192 891.2 146.7 Output Total 841 082 9553 Balance -464.6 375 -198 891.2 146.7 Intake, IV 320.4 575 392 491.2 146.7 Intake, Oral 200 550 800 400 Number 1 Bowel Movements Output, Chest 135 40 Tube Drainage Output, Urine 148 862 2367 Physical Exam: On physical examination she appears well. Her skin is warm and well perfused no suspicious lesions noted. The sclerae are anicteric and mucous membranes are moist. There is no cervical or subclavicular lymphadenopathy. Her breath sounds are diminished on the right side. There is a catheter in place with a minimal amount of slightly cloudy drainage. Her cardiac exam shows a regular rhythm and rate no murmurs or sounds. The abdomen is soft and nontender with no masses. The periphery shows no cyanosis or clubbing. The neurologic exam is grossly normal for motor and sensory function. Last 24 Hours of Labs: Laboratory Tests 06/17 06/16 06/16 0616 2319 1342 Chemistry Sodium (137 - 145 mmol/L) 138 Potassium (3.5 - 5.1 mmol/L) 5.3 H Chloride (98 - 107 mmol/L) 108 H Carbon Dioxide (22 - 30 mmol/L) 15 L Anion Gap (5 - 16) 15 BUN (7 - 17 mg/dL) 74 H Creatinine (0.5 - 1.0 mg/dL) 3.1 H Estimated GFR (>60 ml/min) 15 L BUN/Creatinine Ratio (7 - 25 %) 23.9 Coagulation APTT (25 - 37 SEC) 61 H 70 H 57 H Hematology CBC w Diff MAN DIFF ORDERED WBC (4.8 - 10.8 /CUMM) 46.3 *H RBC (4.20 - 5.40 /CUMM) 3.65 L Hgb (12.0 - 16.0 G/DL) 11.9 L Hct (37 - 47 %) 35.4 L MCV (81.0 - 99.0 FL) 97.0 MCH (27.0 - 31.0 PG) 32.5 H RDW (11.5 - 14.5 %) 14.5 Plt Count (130 - 400 /CUMM) 547 H MPV (7.4 - 10.4 FL) 7.2 L Gran % (42.2 - 75.2 %) 96.2 H Lymphocytes % (20.5 - 51.1 %) 3.0 L Monocytes % (1.7 - 9.3 %) 0.5 L Eosinophils % (0 - 5 %) 0.2 Basophils % (0.0 - 2.0 %) 0.1 Absolute Granulocytes (1.4 - 6.5 /CUMM) 44.5 H Segmented Neutrophils (42.2 - 75.2 %) 87 H Band Neutrophils (0.0 - 5.0 %) 5 Absolute Lymphocytes (1.2 - 3.4 /CUMM) 1.4 Lymphocytes (20.5 - 51.1 %) 4 L Monocytes (1.7 - 9.3 %) 2 Absolute Monocytes (0.10 - 0.60 /CUMM) 0.2 Absolute Eosinophils (0.0 - 0.7 /CUMM) 0.1 Absolute Basophils (0.0 - 0.2 /CUMM) 0 Metamyelocytes (0.0 - 1.0 %) 1 Myelocytes (0 - 0 %) 1 H Platelet Estimate (ADEQUATE) INCREASED Anisocytosis 1+ PUBS MCHC (33.0 - 37.0 G/DL) 33.5 Imaging Results: PATIENT: MEKHI VICENTE PRESENT AGE: 61 PATIENT ACCOUNT NO: [id number] : 53 LOCATION: [facility] ORDERING PHYSICIAN: Vivien Gardner MD SERVICE DATE: 06/14/17- EXAM TYPE: CAT - CT CHEST WO IV CONTRAST EXAMINATION: CT CHEST WITHOUT CONTRAST CLINICAL INFORMATION: Chest tube placed. Fluid collection. COMPARISON: Chest x-ray 06/13/2017, 6:04 PM TECHNIQUE: Multidetector volumetric CT imaging of the chest was done. Axial MIP volume rendering provided. Sagittal and coronal reformatted images were obtained. DLP: 953.55 mGy-cm FINDINGS: PLEURA/LUNGS: Asymmetric elevation of right diaphragm compared to left. There is a cyst moderate volume right pleural effusion. Pigtail chest tube catheter lies at the right lung base laterally. There is no pneumothorax. There is no left pleural effusion. There is consolidation atelectasis at the right lung base. MEDIASTINUM: 1 cm shotty lymph nodes in the pretracheal retrovascular space at the william. 1.5 cm lymph node in the subcarina. AXILLA: No lymphadenopathy. UPPER ABDOMEN: Status post cholecystectomy. Degenerative glands are normal. Visualized portions of liver and spleen are normal. OSSEOUS STRUCTURES: Degenerative spondylosis of spine with multilevel disc height narrowing and endplate spur of the vertebrae. IMPRESSION: 1. Pigtail catheter and pleural space with moderate volume right pleural effusion. No pneumothorax. Atelectasis at the right lung base. DICTATED BY: Tonny Benítez MD DATE/TIME DICTATED:06/14/172253 LACQUER MACHINE FEEDER:FARZANA DATE/TIME TRANSCRIBED:06/14/172253 Assessment/Plan Assessment/Plan 61-year-old with right empyema and significant complicated right parapneumonic effusion. She has a catheter in place with minimal drainage. There I think care lytics are indicated and I think with lytic treatment we should be able to affect a fairly good complete drainage of this effusion. We will go ahead with plan 3 day course of lytic treatment. She can be restudied after that and if there is continued loculations with continued sepsis then thoracoscopy and drainage might be necessary. We will go ahead today with the first lytic treatment. Consult Acknowledgment - Thank you for your consult request.
--- NOTE | 2017-06-17 12:27 | PN- Thoracic Surgery ---
Subjective Subjective: Patient generally comfortable. Still complaining of some mild right-sided chest pain. Awaiting replacement and repositioning of the pleural catheter. Objective Vital Signs and I&Os Vital Signs Date Time Temp Pulse Resp B/P B/P Pulse O2 O2 Flow FiO2 Mean Ox Delivery Rate 06/17 0806 92 Nasal 4.0L Cannula 06/17 0800 Nasal 4.5L Cannula 06/17 0656 98.8 92 22 160/78 93 Nasal Cannula 06/17 0000 95 Nasal 4.5L Cannula 06/16 2318 98.2 92 20 128/60 92 Nasal Cannula 06/16 1756 81 168/70 06/16 1600 Nasal 4.5L Cannula 06/16 1430 98.9 71 20 162/60 94 Nasal 4.5L Cannula 06/16 1402 98.9 71 20 162 94 Nasal 4.5L Cannula Intake & Output 06/17 1600 06/17 0800 06/17 0000 06/16 1600 06/16 0800 06/16 0000 Intake Total 520.4 1125 1192 891.2 146.7 Output Total 587 509 1168 Balance -464.6 375 -198 891.2 146.7 Intake, IV 320.4 575 392 491.2 146.7 Intake, Oral 200 550 800 400 Number 1 Bowel Movements Output, Chest 135 40 Tube Drainage Output, Urine [phone] Physical Exam: Breath sounds diminished on the right side. There is minimal fluid drainage in the catheter and post lytic treatment. Current Medications: Current Medications Sig/Suleman Start time Last Medication Dose Route Stop Time Status Admin Acetaminophen 1,000 MG ONCE ONE 06/17 1000 DC 06/17 N/A 1 UNIT IV 06/17 1014 1014 Acetaminophen 1,000 MG ONCE ONE 06/16 1915 DC 06/16 N/A 1 UNIT IV 06/16 1929 1923 Albuterol Sulfate 3 ML BID 06/15 2200 AC 06/17 INH 0753 Ampicillin Sodium/ 3,000 MG Q8H 06/13 1200 DC 06/17 Sulbactam Sodium IV 0426 Sodium Chloride 100 ML Aspirin Buffered 650 MG DAILY 06/13 1000 AC 06/16 PO 0749 Atorvastatin Calcium 40 MG 1700 06/15 1700 AC 06/16 PO 1742 Docusate Sodium 100 MG BID 06/129 AC 06/16 PO 2059 Furosemide 40 MG DAILY 12/23 1000 AC 06/16 PO 0749 Heparin Sodium 4,500 UNIT ONCE ONE 06/16 1630 DC 06/16 (Porcine) IV 06/16 1631 1631 Heparin Sodium 5,000 UNIT .STK-MED ONE 06/16 1610 DC (Porcine) IV 06/16 1611 Heparin Sodium 25,000 UNIT Q24H 06/13 2100 DC 06/17 (Porcine) IV 06/17 1000 0833 Sodium Chloride 500 ML Hydromorphone HCl 0.2 MG Q6-PRN PRN 06/16 1615 AC 06/17 IV 0438 Insulin Aspart 0 TIDAC/HS 06/14 2100 AC 06/17 SC 0841 Insulin Detemir 30 UNITS BID 06/16 2200 AC 06/17 SC 1018 Nitroglycerin 0.5 GM Q6P PRN 06/15 1830 AC TOP Oxycodone HCl 20 MG Q12 PRN 06/16 2200 AC 06/16 PO 2112 Oxycodone HCl 20 MG Q8P PRN 06/16 1545 DC PO Oxycodone HCl 20 MG Q12 PRN 06/13 1215 DC 06/16 PO 1450 Oxycodone/ 1 TAB ONCE ONE 06/16 1745 DC 06/16 Acetaminophen PO 06/16 1746 1747 Potassium Chloride 40 MEQ BID 06/12 2359 AC 06/16 PO 2059 Pregabalin 75 MG BID 06/13 2200 AC 06/17 PO 1017 Tiotropium [place] 1 PUF DAILY 06/14 1000 AC 06/17 INH 1013 Results Last 48 Hours of Labs: Laboratory Tests 06/17 06/16 06/16 0616 2319 1342 Chemistry Sodium (137 - 145 mmol/L) 138 Potassium (3.5 - 5.1 mmol/L) 5.3 H Chloride (98 - 107 mmol/L) 108 H Carbon Dioxide (22 - 30 mmol/L) 15 L Anion Gap (5 - 16) 15 BUN (7 - 17 mg/dL) 74 H Creatinine (0.5 - 1.0 mg/dL) 3.1 H Estimated GFR (>60 ml/min) 15 L BUN/Creatinine Ratio (7 - 25 %) 23.9 Coagulation APTT (25 - 37 SEC) 61 H 70 H 57 H Hematology CBC w Diff MAN DIFF ORDERED WBC (4.8 - 10.8 /CUMM) 46.3 *H RBC (4.20 - 5.40 /CUMM) 3.65 L Hgb (12.0 - 16.0 G/DL) 11.9 L Hct (37 - 47 %) 35.4 L MCV (81.0 - 99.0 FL) 97.0 MCH (27.0 - 31.0 PG) 32.5 H RDW (11.5 - 14.5 %) 14.5 Plt Count (130 - 400 /CUMM) 547 H MPV (7.4 - 10.4 FL) 7.2 L Gran % (42.2 - 75.2 %) 96.2 H Lymphocytes % (20.5 - 51.1 %) 3.0 L Monocytes % (1.7 - 9.3 %) 0.5 L Eosinophils % (0 - 5 %) 0.2 Basophils % (0.0 - 2.0 %) 0.1 Absolute Granulocytes (1.4 - 6.5 /CUMM) 44.5 H Segmented Neutrophils (42.2 - 75.2 %) 87 H Band Neutrophils (0.0 - 5.0 %) 5 Absolute Lymphocytes (1.2 - 3.4 /CUMM) 1.4 Lymphocytes (20.5 - 51.1 %) 4 L Monocytes (1.7 - 9.3 %) 2 Absolute Monocytes (0.10 - 0.60 /CUMM) 0.2 Absolute Eosinophils (0.0 - 0.7 /CUMM) 0.1 Absolute Basophils (0.0 - 0.2 /CUMM) 0 Metamyelocytes (0.0 - 1.0 %) 1 Myelocytes (0 - 0 %) 1 H Platelet Estimate (ADEQUATE) INCREASED Anisocytosis 1+ PUBS MCHC (33.0 - 37.0 G/DL) 33.5 06/16 06/16 06/15 0644 0030 1931 Chemistry Sodium (137 - 145 mmol/L) 142 Potassium (3.5 - 5.1 mmol/L) 4.5 Chloride (98 - 107 mmol/L) 109 H Carbon Dioxide (22 - 30 mmol/L) 19 L Anion Gap (5 - 16) 14 BUN (7 - 17 mg/dL) 82 H Creatinine (0.5 - 1.0 mg/dL) 3.2 H Estimated GFR (>60 ml/min) 15 L BUN/Creatinine Ratio (7 - 25 %) 25.6 H Lactic Acid Cancelled Coagulation APTT (25 - 37 SEC) 77 H Hematology CBC w Diff NO MAN DIFF REQ WBC (4.8 - 10.8 /CUMM) 28.6 H RBC (4.20 - 5.40 /CUMM) 3.23 L Hgb (12.0 - 16.0 G/DL) 10.5 L Hct (37 - 47 %) 31.5 L MCV (81.0 - 99.0 FL) 97.4 MCH (27.0 - 31.0 PG) 32.5 H RDW (11.5 - 14.5 %) 14.7 H Plt Count (130 - 400 /CUMM) 532 H MPV (7.4 - 10.4 FL) 6.6 L Gran % (42.2 - 75.2 %) 95.0 H Lymphocytes % (20.5 - 51.1 %) 3.8 L Monocytes % (1.7 - 9.3 %) 0.7 L Eosinophils % (0 - 5 %) 0.5 Basophils % (0.0 - 2.0 %) 0 Absolute Granulocytes (1.4 - 6.5 /CUMM) 27.2 H Absolute Lymphocytes (1.2 - 3.4 /CUMM) 1.1 L Absolute Monocytes (0.10 - 0.60 /CUMM) 0.2 Absolute Eosinophils (0.0 - 0.7 /CUMM) 0.2 Absolute Basophils (0.0 - 0.2 /CUMM) 0 PUBS MCHC (33.0 - 37.0 G/DL) 33.3 06/15 06/15 06/15 1830 1725 1550 Blood Gas pH (7.35 - 7.45 PH) 7.30 *L pCO2 (35 - 45 TORR) 33 L pO2 (80 - 100 TORR) 82 HCO3 (21 - 28 MEQ/L) 16 L ABG O2 Sat (Measured) (>96.0 %) 94.0 L P-50 (Temp Corrected) N Carboxyhemoglobin (1.5 - 5.0 %) 0.4 L O2 Concentration % 4.5L Temperature (97.0 - 100.0 FARH) 98.0 O2 Delivery Method NC Chemistry Sodium (137 - 145 mmol/L) 144 Potassium (3.5 - 5.1 mmol/L) 4.4 Chloride (98 - 107 mmol/L) 111 H Carbon Dioxide (22 - 30 mmol/L) 20 L Anion Gap (5 - 16) 13 BUN (7 - 17 mg/dL) 86 H Creatinine (0.5 - 1.0 mg/dL) 3.9 H Estimated GFR (>60 ml/min) 12 L BUN/Creatinine Ratio (7 - 25 %) 22.1 Lactic Acid (0.7 - 2.1 mmol/L) 0.8 Coagulation APTT (25 - 37 SEC) 59 H Miscellaneous Phlebotomy Draw Site RIGHT RADIAL Assessment/Plan Assessment/Plan Evidence of catheter displacement unless no significant response to lytic treatment. The patient is scheduled for catheter repositioning or replacement today in interventional radiology. We will then wait until tomorrow to proceed with lytic therapy. Obviously the replacement or repositioning of the catheter will give us further imaging and a sense of how much residual fluid is present.
[2017-06-17 12:39] VITALS: BP 158/70
--- NOTE | 2017-06-17 13:27 | PN- Att Addend ---
Attending Addendum Attending Brief Note Patient sitting in the chair not feeling well today my little short of breath complaining of her usual pains and asking for pain medication trying to keep it at the minimum due to her respiratory issues. Patient will be going later on to have the chest tube rechecked later repositioned. White count is up again which check with infectious diseases to see if we have to make any adjustment in antibiotic treatment Intake & Output 06/17 1600 06/17 0400 06/16 1600 06/16 0400 06/15 1600 06/15 0400 Intake Total 520.4 1125 2083.2 146.7 2570 420 Output Total 224 943 2511 2450 1050 Balance -404.6 315 693.2 146.7 120 -630 Intake, IV 320.4 575 883.2 146.7 950 300 Intake, Oral 463 312 4125 1620 120 Number 1 0 Bowel Movements Output, Chest 75 60 40 50 50 Tube Drainage Output, Urine 515 181 2876 2400 1000 Current Medications Sig/Suleman Start time Last Medication Dose Route Stop Time Status Admin Acetaminophen 1,000 MG ONCE ONE 06/17 1000 DC 06/17 N/A 1 UNIT IV 06/17 1014 1014 Acetaminophen 1,000 MG ONCE ONE 06/16 1915 DC 06/16 N/A 1 UNIT IV 06/16 1929 1923 Albuterol Sulfate 3 ML BID 06/15 2200 AC 06/17 INH 0753 Ampicillin Sodium/ 3,000 MG Q8H 06/13 1200 DC 06/17 Sulbactam Sodium IV 0426 Sodium Chloride 100 ML Aspirin Buffered 650 MG DAILY 06/13 1000 AC 06/16 PO 0749 Atorvastatin Calcium 40 MG 1700 06/15 1700 AC 06/16 PO 1742 Docusate Sodium 100 MG BID 06/12 2359 AC 06/16 PO 2059 Furosemide 40 MG DAILY 06/13 1000 AC 06/16 PO 0749 Heparin Sodium 4,500 UNIT ONCE ONE 06/16 1630 DC 06/16 (Porcine) IV 06/16 163 1631 Heparin Sodium 5,000 UNIT .STK-MED ONE 06/16 1610 DC (Porcine) IV 06/16 1611 Heparin Sodium 25,000 UNIT Q24H 06/13 2100 DC 06/17 (Porcine) IV 06/17 1000 0833 Sodium Chloride 500 ML Hydromorphone HCl 0.2 MG Q6-PRN PRN 06/16 1615 AC 06/17 IV 1229 Insulin Aspart 0 TIDAC/HS 06/14 2100 AC 06/17 SC 1249 Insulin Detemir 30 UNITS BID 06/16 2200 AC 06/17 SC 1018 Lorazepam 1 MG ONCE ONE 06/17 1315 DC IV 06/17 1316 Nitroglycerin 0.5 GM Q6P PRN 06/15 1830 AC TOP Oxycodone HCl 20 MG Q12 PRN 06/16 2200 AC 06/16 PO 2112 Oxycodone HCl 20 MG Q8P PRN 06/16 1545 DC PO Oxycodone HCl 20 MG Q12 PRN 06/13 1215 DC 06/16 PO 1450 Oxycodone/ 1 TAB ONCE ONE 06/16 1745 DC 06/16 Acetaminophen PO 06/16 174 1747 Potassium Chloride 40 MEQ BID 06/12 2359 AC 06/16 PO 2059 Pregabalin 75 MG BID 06/13 2200 AC 06/17 PO 1017 Tiotropium [place] 1 PUF DAILY 06/14 1000 AC 06/17 INH 1013 Laboratory Tests 06/17/17 0616: Anion Gap 15, Estimated GFR 15 L, BUN/Creatinine Ratio 23.9, APTT 61 H, CBC w Diff MAN DIFF ORDERED, RBC 3.65 L, MCV 97.0, MCH 32.5 H, RDW 14.5, MPV 7.2 L, Gran % 96.2 H, Lymphocytes % 3.0 L, Monocytes % 0.5 L, Eosinophils % 0.2, Basophils % 0.1, Absolute Granulocytes 44.5 H, Segmented Neutrophils 87 H, Band Neutrophils 5, Absolute Lymphocytes 1.4, Lymphocytes 4 L, Monocytes 2, Absolute Monocytes 0.2, Absolute Eosinophils 0.1, Absolute Basophils 0, Metamyelocytes 1, Myelocytes 1 H, Platelet Estimate INCREASED, Anisocytosis 1+, PUBS MCHC 33.5 06/16/17 2319: APTT 70 H 06/16/17 1342: APTT 57 H 06/16/17 0644: Anion Gap 14, Estimated GFR 15 L, BUN/Creatinine Ratio 25.6 H, CBC w Diff NO MAN DIFF REQ, RBC 3.23 L, MCV 97.4, MCH 32.5 H, RDW 14.7 H, MPV 6.6 L, Gran % 95.0 H, Lymphocytes % 3.8 L, Monocytes % 0.7 L, Eosinophils % 0.5, Basophils % 0, Absolute Granulocytes 27.2 H, Absolute Lymphocytes 1.1 L, Absolute Monocytes 0.2, Absolute Eosinophils 0.2, Absolute Basophils 0, PUBS MCHC 33.3 06/16/17 0030: APTT 77 H 06/15/17 1931: Lactic Acid Cancelled 06/15/17 1830: pH 7.30 *L, pCO2 33 L, pO2 82, HCO3 16 L, ABG O2 Sat (Measured) 94.0 L, P-50 (Temp Corrected) N, Carboxyhemoglobin 0.4 L, O2 Concentration % 4.5L, Temperature 98.0, O2 Delivery Method NC, Phlebotomy Draw Site RIGHT RADIAL 06/15/17 1725: Anion Gap 13, Estimated GFR 12 L, BUN/Creatinine Ratio 22.1, Lactic Acid 0.8 06/15/17 1550: APTT 59 H 06/15/17 0655: Anion Gap 18 H, Estimated GFR 11 L, BUN/Creatinine Ratio 21.9, APTT 92 H, CBC w Diff MAN DIFF ORDERED, RBC 3.20 L, MCV 97.5, MCH 32.1 H, RDW 14.7 H, MPV 6.9 L, Gran % 94.9 H, Lymphocytes % 3.2 L, Monocytes % 1.6 L, Eosinophils % 0.2, Basophils % 0.1, Absolute Granulocytes 31.2 H, Segmented Neutrophils 90 H , Band Neutrophils 2, Absolute Lymphocytes 1.1 L, Lymphocytes 5 L, Monocytes 3 , Absolute Monocytes 0.5, Absolute Eosinophils 0.1, Absolute Basophils 0, Platelet Estimate INCREASED, Anisocytosis 1+, PUBS MCHC 33.0, Random Vancomycin 15.7 06/14/17 2250: APTT 58 H Vital Signs Date Time Temp Pulse Resp B/P B/P Pulse O2 O2 Flow FiO2 Mean Ox Delivery Rate 06/17 1239 97.5 100 24 158/70 06/17 0806 92 Nasal 4.0L Cannula 06/17 0800 Nasal 4.5L Cannula 06/17 0656 98.8 92 22 160/78 93 Nasal Cannula 06/17 0000 95 Nasal 4.5L Cannula 06/16 2318 98.2 92 20 128/60 92 Nasal Cannula 06/16 1756 81 168/70 06/16 1600 Nasal 4.5L Cannula 06/16 1430 98.9 71 20 162/60 94 Nasal 4.5L Cannula 06/16 1402 98.9 71 20 162/60 94 Nasal 4.5L Cannula
--- NOTE | 2017-06-17 15:22 | Event Note ---
Event Note Event Note: Patient went downstairs for IR guided pigtail catheter placement at around 2 PM this afternoon. However she was very agitated during the procedure and she refused it. She received IV Ativan with no use. We went to IR suite to convince her, spoke with her in detail about the importance of getting pigtail catheter placement given her empyema. However she denied getting the procedure. * Spoke with IR physician , will get it tomorrow morning. * Attending physician Dr. Saúl Gonsalez was notified.
[2017-06-17 15:48] VITALS: BP 182/90
--- NOTE | 2017-06-17 20:22 | PN- Cardiology ---
Subjective Subjective: * Patient complains of a right chest discomfort. She also has mild shortness of breath. * creatinine improved to 3.1 with potassium of 5.3 * WBC increased to 46.3 Objective Vital Signs and I&Os Vital Signs Date Time Temp Pulse Resp B/P B/P Pulse O2 O2 Flow FiO2 Mean Ox Delivery Rate 06/17 1942 94 Nasal 4.0L Cannula 06/17 1600 Nasal 4.5L Cannula 06/17 1548 98.7 110 20 182/90 94 Nasal 7.0L Cannula 06/17 1239 97.5 100 24 158/70 06/17 0806 92 Nasal 4.0L Cannula 06/17 0800 Nasal 4.5L Cannula 06/17 0656 98.8 92 22 160/78 93 Nasal Cannula 06/17 0000 95 Nasal 4.5L Cannula 06/16 2318 98.2 92 20 128/60 92 Nasal Cannula Intake & Output 06/17 1600 06/17 0800 06/17 0000 06/16 1600 06/16 0800 06/16 0000 Intake Total 813.6 520.4 1125 1192 891.2 146.7 Output Total 200 494 039 6641 Balance 613.6 -464.6 375 -198 891.2 146.7 Intake, IV 213.6 320.4 575 392 491.2 146.7 Intake, Oral 600 200 550 800 400 Number 1 1 Bowel Movements Output, Chest 135 40 Tube Drainage Output, Urine 200 047 376 6563 Physical Exam: General: WD/obese female in NAD; alert and oriented x 3 Heart: RRR w/o murmur Lungs: no crackles or wheezing, chest tube on right Extremities: no edema on right, Left AKA Assessment/Plan Assessment/Plan * This obese and inactive female has evidence of lower extremity thrombosis without findings of a true DVT. I suspect that her small rise in cardiac enzymes is related to a PE. Documentation of this occurrence may be difficult due to out inability to obtain a CT angiogram in the setting of renal insufficiency but her low O2 saturation, shortness of breath and pleuritic pain are consistent with this diagnosis as is her diagnosis of empyema, of course. I think it is prudent to pursue anticoagulation in this patient. She does have an IVC filter which helps but is not 100% reliable for preventing a PE and it does not help with lower extremity thrombosis. IV heparin can be employed since the patient may require additional procedures. * In consideration of the patient's multiple risk factors for coronary artery disease myocardial ischemia related to increased myocardial demand cannot be 100 % excluded and the patient should have risk stratification with a stress test at some point in time. In the meantime, continue IV heparin and aspirin. Continue a statin. If precordial chest pain then begin NTG paste 1/2 inch Q 6 hours. * Obtain an echocardiogram. Continue telemetry? Yes
[2017-06-17 22:09] VITALS: BP 130/70
[2017-06-17 22:56] LABS: PTT 96 SEC (25-37)
[2017-06-18 06:48] VITALS: BP 112/62
--- NOTE | 2017-06-18 07:27 | PN- Pulmonary ---
Subjective HPI/Critical Care Issues: Patient unable to tolerate and/or refused catheter replacement yesterday. She's had no fluid out of her catheter. White count has increased to 46,000 Objective Current Medications: Current Medications Sig/Suleman Start time Last Medication Dose Route Stop Time Status Admin Acetaminophen 1,000 MG Q6P PRN 06/17 1615 AC N/A 1 UNIT IV 06/18 1614 Acetaminophen 1,000 MG ONCE ONE 06/17 1000 DC 06/17 N/A 1 UNIT IV 06/17 1014 1014 Albuterol Sulfate 3 ML BID 06/15 2200 AC 06/17 INH 1940 Ampicillin Sodium/ 3,000 MG Q8H 06/17 1600 AC 06/18 Sulbactam Sodium IV 0026 Sodium Chloride 100 ML Ampicillin Sodium/ 3,000 MG Q8H 06/13 1200 DC 06/17 Sulbactam Sodium IV 0426 Sodium Chloride 100 ML Aspirin Buffered 650 MG DAILY 06/13 1000 AC 06/17 PO 1701 Atorvastatin Calcium 40 MG 1700 06/15 1700 AC 06/17 PO 1701 Docusate Sodium 100 MG BID 06/12 2359 AC 06/16 PO 2059 Furosemide 40 MG DAILY 06/13 1000 AC 06/17 PO 1701 Heparin Sodium 25,000 UNIT Q24H 06/17 1600 DC (Porcine) IV Sodium Chloride 500 ML Heparin Sodium 25,000 UNIT Q24H 06/17 1545 AC 06/17 (Porcine) IV 1703 Sodium Chloride 500 ML Heparin Sodium 25,000 UNIT Q24H 06/13 2100 DC 06/17 (Porcine) IV 06/17 1000 0833 Sodium Chloride 500 ML Hydromorphone HCl 0.2 MG Q6-PRN PRN 06/16 1615 AC 06/17 IV 1229 Insulin Aspart 0 TIDAC/HS 06/14 2100 AC 06/17 SC 2156 Insulin Detemir 35 UNITS BID 06/17 2200 AC 06/17 SC 2159 Insulin Detemir 30 UNITS BID 06/16 2200 DC 06/17 SC 1018 Lorazepam 0 .STK-MED ONE 06/17 1420 DC .ROUTE Lorazepam 1 MG ONCE ONE 06/17 1315 DC 06/17 IV 06/17 1316 1345 Nitroglycerin 0.5 GM Q6P PRN 06/15 1830 AC TOP Oxycodone HCl 20 MG Q12 PRN 12/26 2200 DC 06/16 PO 2111 Potassium Chloride 40 MEQ BID 06/12 2359 DC 06/16 PO 2058 Pregabalin 75 MG BID 06/13 2200 AC 06/17 PO 2158 Tiotropium [place] 1 PUF DAILY 06/14 1000 AC 06/17 INH 1013 Vital Signs & I&O Last 24 Hrs of Vitals and I&O: Vital Signs Date Time Temp Pulse Resp B/P B/P Pulse O2 O2 Flow FiO2 Mean Ox Delivery Rate 06/18 0648 96.6 83 22 112/62 95 Nasal 6.0L Cannula 06/18 0000 Nasal 4.5L Cannula 06/17 2209 98.4 95 20 130/70 95 06/17 1942 94 Nasal 4.0L Cannula 06/17 1600 Nasal 4.5L Cannula 06/17 1548 98.7 110 20 182/90 94 Nasal 7.0L Cannula 06/17 1239 97.5 100 24 158/70 06/17 0806 92 Nasal 4.0L Cannula 06/17 0800 Nasal 4.5L Cannula Intake & Output 06/18 0800 06/18 0000 06/17 1600 Intake Total 631.2 200 813.6 Output Total 400 300 200 Balance 231.2 -100 613.6 Intake, IV 391.2 213.6 Intake, Oral 240 200 600 Number 1 1 Bowel Movements Output, Chest 0 Tube Drainage Output, Urine 400 300 200 Patient 250 lb Weight Oxygen saturation 6 L 95% exam for chest shows markedly diminished breath sounds over the right posterior chest cardiac exam shows regular S1 and S2 without murmurs Impression/Plan Impression/Plan Impression/Plan: 61-year-old with right-sided empyema secondary to community-acquired pneumonia with associated sepsis. Patient is on heparin for DVT. Catheter has migrated will be replaced later this afternoon. If patient cannot tolerate IR consider formal chest tube by CT surgery Recommendations: Patient requires repositioning of chest tube if this is not tolerated would need to consider formal chest tube by thoracic surgery in the operating room. Consider renal evaluation for oral bicarbonate
--- NOTE | 2017-06-18 07:58 | PN- Diabetes ---
Assessment/Plan Assessment: The patient is alert this morning. She states she does not feel well. The patient is presently nothing by mouth for insertion of a chest tube. The patient's fingerstick blood sugar this morning is 337. The patient is on Levemir 35 units twice a day as well as sliding scale NovoLog. The patient's blood sugars were elevated yesterday. . Plan: Suggest that while the patient is nothing by mouth she can still receive her morning Levemir of 35 units. We should also place her on an IV was D5 half- normal saline at 50 mL per hour. We should begin sliding-scale NovoLog every 4 hours while nothing by mouth. Sliding scale NovoLog while nothing by mouth should be less than 150 give no insulin, 151-200 give 4 units NovoLog, 201-250 give 5 units NovoLog, 251-300 give 6 units NovoLog, 301-350 give 7 units NovoLog, 351-400 give 8 units NovoLog. When the patient resumes her diet we should increase her Levemir to 40 units twice a day. In addition we should increase the patient's sliding-scale NovoLog before meals to be in 80-150 give 8 units NovoLog, 151-200 give 10 units NovoLog, 201-250 give 12 units NovoLog, 251-300 give 14 units NovoLog, 301-350 give 15 units NovoLog, 351-400 give 16 units NovoLog. When eating a separate bedtime sliding-scale NovoLog should be written. Bedtime sliding-scale should be less than 250 give no insulin, 251-300 give 3 units NovoLog, 301-350 give 4 units NovoLog, 351-400 give 5 units NovoLog. Subjective Subjective: does not feel well Objective Last 24 Hrs of Vital Signs/I&O Vital Signs Date Time Temp Pulse Resp B/P B/P Pulse O2 O2 Flow FiO2 Mean Ox Delivery Rate 06/18 0648 96.6 83 22 112/62 95 Nasal 6.0L Cannula 06/18 0000 Nasal 4.5L Cannula 06/17 2209 98.4 95 20 130/70 95 06/17 1942 94 Nasal 4.0L Cannula 06/17 1600 Nasal 4.5L Cannula 06/17 1548 98.7 110 20 182/90 94 Nasal 7.0L Cannula 06/17 1239 97.5 100 24 158/70 06/17 0806 92 Nasal 4.0L Cannula 06/17 0800 Nasal 4.5L Cannula Intake & Output 06/18 0800 06/18 0000 06/17 1600 Intake Total 631.2 200 813.6 Output Total 400 300 200 Balance 231.2 -100 613.6 Intake, IV 391.2 213.6 Intake, Oral 240 200 600 Number 1 1 Bowel Movements Output, Chest 0 Tube Drainage Output, Urine 400 300 200 Patient 250 lb Weight Vital Signs Date Time Temp Pulse Resp B/P B/P Pulse O2 O2 Flow FiO2 Mean Ox Delivery Rate 06/18 0648 96.6 83 22 112/62 95 Nasal 6.0L Cannula 06/18 0000 Nasal 4.5L Cannula 06/17 2209 98.4 95 20 130/70 95 06/17 1942 94 Nasal 4.0L Cannula 06/17 1600 Nasal 4.5L Cannula 06/17 1548 98.7 110 20 182/90 94 Nasal 7.0L Cannula 06/17 1239 97.5 100 24 158/70 06/17 0806 92 Nasal 4.0L Cannula 06/17 0800 Nasal 4.5L Cannula Intake & Output 06/18 0800 06/18 0000 06/17 1600 Intake Total 631.2 200 813.6 Output Total 400 300 200 Balance 231.2 -100 613.6 Intake, IV 391.2 213.6 Intake, Oral 240 200 600 Number 1 1 Bowel Movements Output, Chest 0 Tube Drainage Output, Urine 400 300 200 Patient 250 lb Weight Current Medications: Current Medications Sig/Suleman Start time Last Medication Dose Route Stop Time Status Admin Acetaminophen 1,000 MG Q6P PRN 06/17 1615 AC N/A 1 UNIT IV 06/18 1614 Acetaminophen 1,000 MG ONCE ONE 06/17 1000 DC 06/17 N/A 1 UNIT IV 06/17 1014 1014 Albuterol Sulfate 3 ML BID 06/15 2200 AC 06/17 INH 1940 Ampicillin Sodium/ 3,000 MG Q8H 06/17 1600 AC 06/18 Sulbactam Sodium IV 0026 Sodium Chloride 100 ML Ampicillin Sodium/ 3,000 MG Q8H 06/13 1200 DC 06/17 Sulbactam Sodium IV 0426 Sodium Chloride 100 ML Aspirin Buffered 650 MG DAILY 06/13 1000 AC 06/17 PO 1701 Atorvastatin Calcium 40 MG 1700 06/15 1700 AC 06/17 PO 1701 Docusate Sodium 100 MG BID 06/12 2359 AC 06/16 PO 9 Furosemide 40 MG DAILY 06/13 1000 AC 06/17 PO 1701 Heparin Sodium 25,000 UNIT Q24H 06/17 1600 DC (Porcine) IV Sodium Chloride 500 ML Heparin Sodium 25,000 UNIT Q24H 06/17 1545 AC 06/17 (Porcine) IV 1703 Sodium Chloride 500 ML Heparin Sodium 25,000 UNIT Q24H 06/13 2100 DC 06/17 (Porcine) IV 06/17 1000 0833 Sodium Chloride 500 ML Hydromorphone HCl 0.2 MG Q6-PRN PRN 06/16 1615 AC 06/17 IV 1229 Insulin Aspart 0 TIDAC/HS 06/14 2100 AC 06/17 SC 2156 Insulin Detemir 35 UNITS BID 06/17 2200 AC 06/17 SC 2159 Insulin Detemir 30 UNITS BID 06/16 2200 DC 06/17 SC 1018 Lorazepam 0 .STK-MED ONE 06/17 1420 DC .ROUTE Lorazepam 1 MG ONCE ONE 06/17 1315 DC 06/17 IV 06/17 1316 1345 Nitroglycerin 0.5 GM Q6P PRN 06/15 1830 AC TOP Oxycodone HCl 20 MG Q12 PRN 06/16 2200 DC 06/16 PO 211 Potassium Chloride 40 MEQ BID 06/12 2359 DC 06/16 PO 2058 Pregabalin 75 MG BID 06/13 2200 AC 06/17 PO 215 Tiotropium [place] 1 PUF DAILY 06/14 1000 AC 06/17 INH 1013 Findings Pertinent Lab/Drew Results: Laboratory Tests 06/18 06/17 0708 2200 Chemistry Sodium Pending Potassium Pending Chloride Pending Carbon Dioxide Pending Anion Gap Pending BUN Pending Creatinine Pending BUN/Creatinine Ratio Pending Magnesium Pending Total Bilirubin Pending Direct Bilirubin Pending AST Pending ALT Pending Alkaline Phosphatase Pending Total Protein Pending Albumin Pending Coagulation APTT (25 - 37 SEC) Pending 96 H Hematology CBC w Diff Pending WBC Pending RBC Pending Hgb Pending Hct Pending MCV Pending MCH Pending RDW Pending Plt Count Pending MPV Pending PUBS MCHC Pending
[2017-06-18 08:40] LABS: ABSOLUTE EOSINOPHIL COUNT 0 /CUMM (0.0-0.7); EOSINOPHIL % 0.1 % (0-5)
[2017-06-18 09:00] LABS: ABSOLUTE BASOPHIL COUNT 0.1 /CUMM (0.0-0.2); ABSOLUTE GRANULOCYTE CT 41.5 /CUMM (1.4-6.5); ABSOLUTE LYMPH COUNT 1.9 /CUMM (1.2-3.4); ABSOLUTE MONOCYTE COUNT 0.7 /CUMM (0.10-0.60); BASOPHIL % 0.1 % (0.0-2.0); MEAN CORPUSCULAR HGB 32.5 PG (27.0-31.0); MEAN CORPUSCULAR HGB CONC 33.5 G/DL (33.0-37.0); MEAN CORPUSCULAR VOLUME 96.9 FL (81.0-99.0); MEAN PLATELET VOLUME 7.3 FL (7.4-10.4); PLATELET COUNT 501 /CUMM (130-400); RBC DISTRIBUTION WIDTH 14.7 % (11.5-14.5); RED BLOOD CELL CT 2.94 /CUMM (4.20-5.40)
--- NOTE | 2017-06-18 09:11 | PN- Housestaff ---
Subjective Follow-up For: empyema secondary to pneumonia ameya on ckd Tele-Events Since Last Visit: nsr 72-90 Subjective: Patient was seen and examined sitting in a chair. Yesterday we attemted to reposition the pigtail catheter but the patient became combative and refused even after premedication with ativan 1mg. She notes increased pain of her chest and back and is tearful and scared of any intervention that she knows she needs. Review of Systems Constitutional: Reports: no symptoms. EENTM: Reports: no symptoms. Cardiovascular: Reports: chest pain, edema. Respiratory: Reports: short of breath. Gastrointestinal: Reports: abdominal pain. Genitourinary: Reports: no symptoms. Musculoskeletal: Reports: back pain. Skin: Reports: no symptoms. Neurological/Psychological: Reports: no symptoms. Hematologic/Endocrine: Reports: no symptoms. Immunologic/Allergic: Reports: no symptoms. Objective Last 24 Hrs of Vital Signs/I&O Vital Signs Date Time Temp Pulse Resp B/P B/P Pulse O2 O2 Flow FiO2 Mean Ox Delivery Rate 06/18 1431 97.8 90 20 148/70 95 Nasal 4.5L Cannula 06/18 1157 Nasal 4.5L Cannula 06/18 1033 95 Nasal 4.5L Cannula 06/18 0800 Nasal 4.5L Cannula 06/18 0648 96.6 83 22 112/62 95 Nasal 6.0L Cannula 06/18 0000 Nasal 4.5L Cannula 06/17 2209 98.4 95 20 130/70 95 06/17 1942 94 Nasal 4.0L Cannula Intake & Output 06/18 1600 06/18 0800 06/18 0000 Intake Total 395.6 631.2 200 Output Total 300 400 300 Balance 95.6 231.2 -100 Intake, IV 395.6 391.2 Intake, Oral 240 200 Number 1 1 Bowel Movements Output, Chest 0 Tube Drainage Output, Urine 300 400 300 Patient 250 lb Weight Physical Exam General Appearance: Alert, Oriented X3, Moderate Distress Skin: No Rashes Skin Temp/Moisture Exam: Warm/Dry Sepsis Skin Exam (color): Normal for Ethnicity HEENT: Atraumatic Cardiovascular: Regular Rate, Normal S1, Normal S2, No Murmurs Lungs: Clear to Auscultation, Normal Air Movement Abdomen: Normal Bowel Sounds, Soft, No Hepatospenomegaly Neurological: Normal Speech Extremities: No Clubbing, No Cyanosis, Normal Pulses, No Tenderness/Swelling, left prosthesis Vascular: Normal Pulses, Pulses Symmetrical Current Medications: Current Medications Sig/Suleman Start time Last Medication Dose Route Stop Time Status Admin Acetaminophen 1,000 MG Q6P PRN 06/17 1615 DC N/A 1 UNIT IV 06/18 1614 Albuterol Sulfate 3 ML BID 06/15 2200 AC 06/18 INH 1033 Ampicillin Sodium/ 3,000 MG Q8H 06/17 1600 AC 06/18 Sulbactam Sodium IV 0957 Sodium Chloride 100 ML Aspirin Buffered 650 MG DAILY 06/13 1000 AC 06/17 PO 1701 Atorvastatin Calcium 40 MG 1700 06/15 1700 AC 06/17 PO 1701 Dextrose/Sodium 1,000 ML Q20H 06/18 1015 06/18 Chloride IV 06/19 0614 1024 Docusate Sodium 100 MG BID 06/12 2359 AC 06/16 PO 2059 Furosemide 40 MG DAILY 06/13 1000 AC 06/17 PO 1701 Heparin Sodium 25,000 UNIT Q24H 06/17 1545 DC 06/17 (Porcine) IV 06/18 1000 1703 Sodium Chloride 500 ML Hydromorphone HCl 0.2 MG Q6-PRN PRN 06/16 1615 AC 06/17 IV 1229 Insulin Aspart 0 TIDAC/HS 06/18 1615 AC SC Insulin Aspart 0 Q4 06/18 1030 DC 06/18 SC 1353 Insulin Aspart 0 TIDAC/HS 06/14 2100 DC 06/17 SC 2156 Insulin Detemir 40 UNITS BID 06/18 2200 AC SC Insulin Detemir 35 UNITS BID 06/17 2200 DC 06/18 SC 1012 Nitroglycerin 0.5 GM Q6P PRN 06/15 1830 AC TOP Pregabalin 75 MG BID 06/13 2200 AC 06/18 PO 1012 Tiotropium [place] 1 PUF DAILY 06/14 1000 AC 06/18 INH 0957 Last 24 Hrs of Lab/Drew Results Last 24 Hrs of Labs/Mics: Laboratory Tests 06/18/17 0708: Anion Gap 13, Estimated GFR 13 L, BUN/Creatinine Ratio 23.6, Magnesium 2.3, Total Bilirubin 0.4, Direct Bilirubin 0.4, AST 24, ALT 40, Alkaline Phosphatase 167 H, Total Protein 6.1 L, Albumin 2.5 L, APTT 102 *H, CBC w Diff MAN DIFF ORDERED, RBC 2.94 L, MCV 96.9, MCH 32.5 H, RDW 14.7 H, MPV 7.3 L, Gran % 94.0 H, Lymphocytes % 4.3 L, Monocytes % 1.5 L, Eosinophils % 0.1, Basophils % 0.1, Absolute Granulocytes 41.5 H, Segmented Neutrophils 85 H, Band Neutrophils 5, Absolute Lymphocytes 1.9, Lymphocytes 8 L, Absolute Monocytes 0.7 H, Absolute Eosinophils 0, Absolute Basophils 0.1, Metamyelocytes 1, Myelocytes 1 H, Platelet Estimate INCREASED, Anisocytosis 1+, PUBS MCHC 33.5 06/17/17 2200: APTT 96 H Assessment/Plan Assessment: Assessment 61-year-old woman, current smoker with a history of COPD, diabetes type 2 with diabetic neuropathy, left leg DVT status post IVC filter, chronic kidney disease , neuropathy and peripheral vascular disease, 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 Patient had drainage and Pleurx catheter drain placed on the for question of empyema. Fluid was found to not be grossly purulent. Fluid composition showed elevated WBCs, RBCs, pH 6.4, LDH of 3819. She is on Unasyn. She was found to have extremely elevated white blood cell count on admission of 44. Chest x-ray done after placement on 06/13 which showed persistent moderate volume of her right pleural effusion. WBCs continue to be elevated. Patient refused VQ scan and echo and replacement of pigtail catheter yesterday secondary to pain and anxiety. She has been given IV tylenol for pain to good effect. Plan #1 Acute hypoxic respiratory failure likely secondary to community-acquired pneumonia/empyema: Patient presented with pleuritic chest pain, leukocytosis with bandemia and evidence of opacity in the right hemithorax. Blood cultures positive Haemophilus. She was found to have an empyema which was drained with Pleurx catheter. Fluid was found to be exudative in nature. Catheter drainage thus far was 650 mL of serous sanguinous fluid. * White count again elevated, afebrile. * TRC nebs [id number]. Oxygen as needed, keep saturations above 92%. Today on 5L. * As placement of Pleurx catheter on chest x-ray from 06/13 is above the collection of fluid, surgery has ordered addition of lytic agent alteplase to aid in suction and removal of the fluid. Surgery will order this every day for the next 3 days. She can be restudied after that and if there is continued loculations with continued sepsis then thoracoscopy and drainage might be necessary. * Continue Unasyn * No growth pleural fluid so far * Patient was to have replacement of pigtail catheter in new position today to aid in removal of fluid. However, procedure was aborted due to patient combativeness and distress. She had been premedicated with ativan which did not work and refused another dose. * Re-attempt pigtail catheter today with help of anethesia. #2 Pleuritic chest pain with positive troponins: Patient had some new EKG changes. Chest pain was mostly pleuritic. Troponins trended down. Likely type II UT in the setting of hypoxic respiratory failure which may be secondary to a pulmonary embolism. Clinically the patient has shortness of breath, pleuritic pain, low oxygen saturation consistent with empyema but also with pulmonary embolism. She was started on IV heparin in ED which is currently being continued. We are unable to get CTA in the setting of renal insufficiency. The patient has an IVC filter but of note this is not 100% reliable in the prevention of pulmonary embolism and of course does not help with an actual lower extremity thrombosis. * Troponins down * Continue IV heparin and aspirin and statin until 10am when heparin will be stopped for procedure. Restart post-procedure. * According to Dr. Lucas, if patient has precordial chest pain then can begin NTG paste 1/2 inch Q 6 hours. * According to Dr. Lucas, cardiology, myocardial ischemia cannot be 100% excluded and patient should have outpatient risk stratification with a stress test. #3 Urinary tract infection: Dirty urine, cultures positive for staph aureus * She has received an adequate course of Vancomycin for a lower urinary tract infection #4 Right knee pain: Patient notes a chronic moderate right knee pain. * Severe tricompartmental osteoarthritis seen on xray * Pain control with iv tylenol #5 Insulin-dependent diabetes mellitus: * Blood glucose 330 this morning. * Start D51/2NS at a rate of 50cc/hr and sliding scale q4 hours as patient is NPO. * Follow endo recommendations #6 Elevated proBNP at 2590. No previous echo on record. * Attempt echo again when patient is more calm. * Lasix 40mg * Daily weight checks. #7 Acute kidney injury on chronic kidney disease * Patient has had persistent bicarb deficiency during this stay, has never had this problem before. * Monitory BEP * Avoid nephrotoxins * Nephrology consult for potential bicarb drip? #8 Hyperkalemia * Stop kdur * Lasix will help with this -Pain Control -Diabetic diet -DVT prophylaxis with heparin and Alps on right leg -Full code Problem List: 1. Empyema 2. Pneumonia 3. AMEYA (acute kidney injury) 4. CHRONIC RENAL FAILURE 5. Amputated above knee 6. Diabetes mellitus type 2 7. Leukocytosis Pain Ratin Pain Location: right chest and back Pain Goal: Pain 4 or less Pain Plan: iv tylenol and dilaudid Tomorrow's Labs & Rationales: cbc and bep
[2017-06-18 09:15] LABS: PTT 102 SEC (25-37)
[2017-06-18 09:31] LABS: HEMATOCRIT 28.4 % (37-47); WHITE BLOOD CELL COUNT 44.1 /CUMM (4.8-10.8)
--- NOTE | 2017-06-18 12:22 | Cons- Nephrology ---
General Information and HPI Consulting Request Date of Consult: 06/18/17 Requested By: Wallace Hays MD Reason for Consult: Whether or not oral bicarbonate is a reasonable therapeutic option here. Source of Information: patient, old records Exam Limitations: clinical condition, complaining of shortness of breath History of Present Illness: Is 61-year-old woman has a history of diabetes for at least 10 years was admitted with chest pain, pneumonia and found to have empyema requiring a chest tube will stop she also was found to have MRSA in her urine as well as Haemophilus influenza type b and blood cultures. Nephrology is now asked to address whether or not sodium bicarbonate tablets would be appropriate. Patient has a previous history of renal disease and had been seen by Dr. Messi Forman earlier this year. She has at least 10 years of diabetes and reports a history of bleeding in her eyes although she denies ever having laser therapy. She has no previous history of kidney stones or kidney infections. Her major complaint today is of difficulty breathing. Her chest tube needs to be repositioned. She reports being amenable to any sort of relief may be offered with regards to her breathing. Allergies/Medications Allergies: Coded Allergies: NO KNOWN ALLERGIES (09/21/15) Home Med List: Alprazolam 0.25 MG TABLET 1 TAB PO BIDP PRN ANXIETY (Reported) Aspirin (Ecotrin*) 325 MG TABLET.DR 2 TAB PO DAILY HEART/BLOOD (Reported) Citalopram Hydrobromide (Citalopram HBr) 20 MG TABLET 1 TAB PO DAILY MENTAL HEALTH (Reported) Cyanocobalamin (Vitamin B-12) (B-12) 1,000 MCG TABLET 1 TAB PO DAILY SUPPLEMENT (Reported) Docusate Sodium (Colace) 100 MG CAPSULE 1 CAP PO BID STOOL SOFTENER (Reported ) Ergocalciferol (Vitamin D2) (Vitamin D2) 50,000 UNIT CAPSULE 1 CAP PO Q2W SUPPLEMENT (Reported) Furosemide 40 MG TABLET 40 MG PO DAILY DIURETIC (Reported) Insulin Aspart, Recombinant (Novolog Flexpen) 100 UNIT/ML INSULN.PEN DM ( Reported) Insulin Detemir (Levemir) 100 UNIT/ML VIAL 40 UNITS SC QAM DM (Reported) Insulin Detemir (Levemir) 100 UNIT/ML VIAL 60 UNITS SC QPM DM (Reported) Linagliptin (Tradjenta) 5 MG TABLET 1 TAB PO DAILY DM (Reported) Oxycodone HCl (Oxycontin) 80 MG TAB.ER.12H 1 TAB PO TID PRN PAIN (Reported) Pregabalin (Lyrica) 150 MG CAPSULE 1 CAP PO DAILY NERVE PAIN (Reported) Tiotropium [place] (Spiriva) 18 MCG CAP.W.DEV 1 CAP INH DAILY COPD (Reported) Current Medications: Current Medications Sig/Suleman Start time Last Medication Dose Route Stop Time Status Admin Acetaminophen 1,000 MG Q6P PRN 06/17 1615 AC N/A 1 UNIT IV 06/18 1614 Albuterol Sulfate 3 ML BID 06/15 2200 AC 06/18 INH 1033 Ampicillin Sodium/ 3,000 MG Q8H 06/17 1600 AC 06/18 Sulbactam Sodium IV 0957 Sodium Chloride 100 ML Aspirin Buffered 650 MG DAILY 06/13 1000 AC 06/17 PO 1701 Atorvastatin Calcium 40 MG 1700 06/15 1700 AC 06/17 PO 1701 Dextrose/Sodium 1,000 ML Q20H 06/18 1015 AC 06/18 Chloride IV 06/19 0614 1024 Docusate Sodium 100 MG BID 06/12 2359 AC 06/16 PO 2058 Furosemide 40 MG DAILY 06/13 1000 AC 06/17 PO 1701 Heparin Sodium 25,000 UNIT Q24H 06/17 1600 DC (Porcine) IV Sodium Chloride 500 ML Heparin Sodium 25,000 UNIT Q24H 06/17 1545 DC 06/17 (Porcine) IV 06/18 1000 1703 Sodium Chloride 500 ML Hydromorphone HCl 0.2 MG Q6-PRN PRN 06/16 1615 AC 06/17 IV 1229 Insulin Aspart 0 Q4 06/18 1030 AC 06/18 SC 1353 Insulin Aspart 0 TIDAC/HS 06/14 2100 DC 06/17 SC 2156 Insulin Detemir 35 UNITS BID 06/17 2200 AC 06/18 SC 1012 Insulin Detemir 30 UNITS BID 06/16 2200 DC 06/17 SC 1018 Nitroglycerin 0.5 GM Q6P PRN 06/15 1830 AC TOP Oxycodone HCl 20 MG Q12 PRN 06/16 2200 DC 06/16 PO 211 Potassium Chloride 40 MEQ BID 06/12 2359 DC 06/16 PO 2058 Pregabalin 75 MG BID 06/13 2200 AC 06/18 PO 1012 Tiotropium [place] 1 PUF DAILY 06/14 1000 AC 06/18 INH 0957 Review of Systems Review of Systems EENTM: Reports: no symptoms. Cardiovascular: Reports: chest pain, edema, orthopena. Respiratory: Reports: cough, short of breath. GI: Denies: abdominal pain, constipation, vomiting. Genitourinary: Denies: dysuria, frequency, hesitation, nocturia. Musculoskeletal: Denies: back pain. Skin: Reports: no symptoms. Denies: rash. Neurological/Psychological: Reports: no symptoms. Hematologic/Endocrine: Denies: bruising, bleeding. 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 Home Who Do You Live With? child Services at Home: Nursing Smoking Status: Current Everyday Smoker ETOH Use: denies use Illicit Drug Use: denies illicit drug use Functional Ability ADLs Independent: dressing, eating, toileting, bathing. Ambulation: cane IADLs Needs Assist: shopping, housework. Exam & Diagnostic Data Vital Signs and I&O Vital Signs Date Time Temp Pulse Resp B/P B/P Pulse O2 O2 Flow FiO2 Mean Ox Delivery Rate 06/18 1157 Nasal 4.5L Cannula 06/18 1033 95 Nasal 4.5L Cannula 06/18 0648 96.6 83 22 112/62 95 Nasal 6.0L Cannula 06/18 0000 Nasal 4.5L Cannula 06/17 2209 98.4 95 20 130/70 95 06/17 1942 94 Nasal 4.0L Cannula 06/17 1600 Nasal 4.5L Cannula 06/17 1548 98.7 110 20 182/90 94 Nasal 7.0L Cannula 06/17 1239 97.5 100 24 158/70 Intake & Output 06/18 1600 06/18 0400 06/17 1600 06/17 0400 06/16 1600 06/16 0400 Intake Total 631.2 200 1334.0 1125 2083.2 146.7 Output Total 885 770 5318 810 1390 Balance 231.2 -100 209.0 315 693.2 146.7 Intake, IV 391.2 534.0 575 883.2 146.7 Intake, Oral 240 200 108 367 0035 Number 1 1 1 Bowel Movements Output, Chest 0 75 60 40 Tube Drainage Output, Urine 578 721 2052 750 1350 Patient 250 lb Weight Physical Exam General Appearance: well developed/nourished, alert, awake, anxious, mild distress, obese Head: atraumatic, normal appearance Eyes: Bilateral: PERRL, EOMI, pale conjunctivae. Ears, Nose, Throat: moist mucus membranes Neck: normal inspection, supple, full range of motion Respiratory: decreased breath sounds Cardiovascular: regular rate/rhythm Gastrointestinal: normal bowel sounds, soft, non-tender, no organomegaly Back: normal inspection Extremities: no edema, status post left BKA Neurologic/Psych: no motor/sensory deficits, awake, alert, oriented x 3 Cranial Nerves: normal hearing, normal speech Skin: no rash Results Pertinent Lab Results: Laboratory Tests 06/18 06/17 0708 2200 Chemistry Sodium (137 - 145 mmol/L) 137 Potassium (3.5 - 5.1 mmol/L) 5.4 H Chloride (98 - 107 mmol/L) 106 Carbon Dioxide (22 - 30 mmol/L) 18 L Anion Gap (5 - 16) 13 BUN (7 - 17 mg/dL) 85 H Creatinine (0.5 - 1.0 mg/dL) 3.6 H Estimated GFR (>60 ml/min) 13 L BUN/Creatinine Ratio (7 - 25 %) 23.6 Magnesium (1.6 - 2.3 mg/dL) 2.3 Total Bilirubin (0.2 - 1.3 mg/dL) 0.4 Direct Bilirubin (< 0.4 mg/dL) 0.4 AST (14 - 36 U/L) 24 ALT (9 - 52 U/L) 40 Alkaline Phosphatase (<127 U/L) 167 H Total Protein (6.3 - 8.2 g/dL) 6.1 L Albumin (3.5 - 5.0 g/dL) 2.5 L Coagulation APTT (25 - 37 SEC) 102 *H 96 H Hematology CBC w Diff MAN DIFF ORDERED WBC (4.8 - 10.8 /CUMM) 44.1 *H RBC (4.20 - 5.40 /CUMM) 2.94 L Hgb (12.0 - 16.0 G/DL) 9.5 L Hct (37 - 47 %) 28.4 L MCV (81.0 - 99.0 FL) 96.9 MCH (27.0 - 31.0 PG) 32.5 H RDW (11.5 - 14.5 %) 14.7 H Plt Count (130 - 400 /CUMM) 501 H MPV (7.4 - 10.4 FL) 7.3 L Gran % (42.2 - 75.2 %) 94.0 H Lymphocytes % (20.5 - 51.1 %) 4.3 L Monocytes % (1.7 - 9.3 %) 1.5 L Eosinophils % (0 - 5 %) 0.1 Basophils % (0.0 - 2.0 %) 0.1 Absolute Granulocytes (1.4 - 6.5 /CUMM) 41.5 H Segmented Neutrophils (42.2 - 75.2 %) 85 H Band Neutrophils (0.0 - 5.0 %) 5 Absolute Lymphocytes (1.2 - 3.4 /CUMM) 1.9 Lymphocytes (20.5 - 51.1 %) 8 L Absolute Monocytes (0.10 - 0.60 /CUMM) 0.7 H Absolute Eosinophils (0.0 - 0.7 /CUMM) 0 Absolute Basophils (0.0 - 0.2 /CUMM) 0.1 Metamyelocytes (0.0 - 1.0 %) 1 Myelocytes (0 - 0 %) 1 H Platelet Estimate (ADEQUATE) INCREASED Anisocytosis 1+ PUBS MCHC (33.0 - 37.0 G/DL) 33.5 06/17 06/16 06/16 0616 2319 1342 Chemistry Sodium (137 - 145 mmol/L) 138 Potassium (3.5 - 5.1 mmol/L) 5.3 H Chloride (98 - 107 mmol/L) 108 H Carbon Dioxide (22 - 30 mmol/L) 15 L Anion Gap (5 - 16) 15 BUN (7 - 17 mg/dL) 74 H Creatinine (0.5 - 1.0 mg/dL) 3.1 H Estimated GFR (>60 ml/min) 15 L BUN/Creatinine Ratio (7 - 25 %) 23.9 Coagulation APTT (25 - 37 SEC) 61 H 70 H 57 H Hematology CBC w Diff MAN DIFF ORDERED WBC (4.8 - 10.8 /CUMM) 46.3 *H RBC (4.20 - 5.40 /CUMM) 3.65 L Hgb (12.0 - 16.0 G/DL) 11.9 L Hct (37 - 47 %) 35.4 L MCV (81.0 - 99.0 FL) 97.0 MCH (27.0 - 31.0 PG) 32.5 H RDW (11.5 - 14.5 %) 14.5 Plt Count (130 - 400 /CUMM) 547 H MPV (7.4 - 10.4 FL) 7.2 L Gran % (42.2 - 75.2 %) 96.2 H Lymphocytes % (20.5 - 51.1 %) 3.0 L Monocytes % (1.7 - 9.3 %) 0.5 L Eosinophils % (0 - 5 %) 0.2 Basophils % (0.0 - 2.0 %) 0.1 Absolute Granulocytes (1.4 - 6.5 /CUMM) 44.5 H Segmented Neutrophils (42.2 - 75.2 %) 87 H Band Neutrophils (0.0 - 5.0 %) 5 Absolute Lymphocytes (1.2 - 3.4 /CUMM) 1.4 Lymphocytes (20.5 - 51.1 %) 4 L Monocytes (1.7 - 9.3 %) 2 Absolute Monocytes (0.10 - 0.60 /CUMM) 0.2 Absolute Eosinophils (0.0 - 0.7 /CUMM) 0.1 Absolute Basophils (0.0 - 0.2 /CUMM) 0 Metamyelocytes (0.0 - 1.0 %) 1 Myelocytes (0 - 0 %) 1 H Platelet Estimate (ADEQUATE) INCREASED Anisocytosis 1+ PUBS MCHC (33.0 - 37.0 G/DL) 33.5 06/16 06/16 06/15 0644 0030 1931 Chemistry Sodium (137 - 145 mmol/L) 142 Potassium (3.5 - 5.1 mmol/L) 4.5 Chloride (98 - 107 mmol/L) 109 H Carbon Dioxide (22 - 30 mmol/L) 19 L Anion Gap (5 - 16) 14 BUN (7 - 17 mg/dL) 82 H Creatinine (0.5 - 1.0 mg/dL) 3.2 H Estimated GFR (>60 ml/min) 15 L BUN/Creatinine Ratio (7 - 25 %) 25.6 H Lactic Acid Cancelled Coagulation APTT (25 - 37 SEC) 77 H Hematology CBC w Diff NO MAN DIFF REQ WBC (4.8 - 10.8 /CUMM) 28.6 H RBC (4.20 - 5.40 /CUMM) 3.23 L Hgb (12.0 - 16.0 G/DL) 10.5 L Hct (37 - 47 %) 31.5 L MCV (81.0 - 99.0 FL) 97.4 MCH (27.0 - 31.0 PG) 32.5 H RDW (11.5 - 14.5 %) 14.7 H Plt Count (130 - 400 /CUMM) 532 H MPV (7.4 - 10.4 FL) 6.6 L Gran % (42.2 - 75.2 %) 95.0 H Lymphocytes % (20.5 - 51.1 %) 3.8 L Monocytes % (1.7 - 9.3 %) 0.7 L Eosinophils % (0 - 5 %) 0.5 Basophils % (0.0 - 2.0 %) 0 Absolute Granulocytes (1.4 - 6.5 /CUMM) 27.2 H Absolute Lymphocytes (1.2 - 3.4 /CUMM) 1.1 L Absolute Monocytes (0.10 - 0.60 /CUMM) 0.2 Absolute Eosinophils (0.0 - 0.7 /CUMM) 0.2 Absolute Basophils (0.0 - 0.2 /CUMM) 0 PUBS MCHC (33.0 - 37.0 G/DL) 33.3 06/15 06/15 06/15 1830 1725 1550 Blood Gas pH (7.35 - 7.45 PH) 7.30 *L pCO2 (35 - 45 TORR) 33 L pO2 (80 - 100 TORR) 82 HCO3 (21 - 28 MEQ/L) 16 L ABG O2 Sat (Measured) (>96.0 %) 94.0 L P-50 (Temp Corrected) N Carboxyhemoglobin (1.5 - 5.0 %) 0.4 L O2 Concentration % 4.5L Temperature (97.0 - 100.0 FARH) 98.0 O2 Delivery Method NC Chemistry Sodium (137 - 145 mmol/L) 144 Potassium (3.5 - 5.1 mmol/L) 4.4 Chloride (98 - 107 mmol/L) 111 H Carbon Dioxide (22 - 30 mmol/L) 20 L Anion Gap (5 - 16) 13 BUN (7 - 17 mg/dL) 86 H Creatinine (0.5 - 1.0 mg/dL) 3.9 H Estimated GFR (>60 ml/min) 12 L BUN/Creatinine Ratio (7 - 25 %) 22.1 Lactic Acid (0.7 - 2.1 mmol/L) 0.8 Coagulation APTT (25 - 37 SEC) 59 H Miscellaneous Phlebotomy Draw Site RIGHT RADIAL Assessment/Plan Assessment/Recommendations Assessment: 1. Chronic kidney disease. Likely diabetic nephropathy. She was seen by nephrology in the past and was found to have roughly 6.7 g of protein per gram of creatinine. This would be consistent with nephrotic range proteinuria due to diabetic nephropathy. Her renal function is actually close to her baseline. Her serum protein phoresis was negative 2. Pneumonia with empyema. She mentions getting another catheter today. 3. Diabetes mellitus 4. Peripheral vascular disease 5. Neuropathy 6. Metabolic acidosis. At this point, the typical dose that I would use would be sodium bicarbonate 650 mg twice a day. The argument for giving sodium bicarbonate is usually more along the lines of a long-term issue. Eating a chronic metabolic acidosis with sodium bicarbonate in someone with CK D stage IV is felt to slow the progression of the underlying renal disease as well as perhaps, at least theoretically, ameliorate the bone disease associated with chronic kidney disease. Recommendations: 1. Maintain strict I's and O's and daily weights. 2. Check daily BMP. 3. It is hoped that with treatment of her pneumonia creatinine to go back to his usual baseline. 4. Would restrict dietary sodium to 2 g per day
--- NOTE | 2017-06-18 12:53 | PN- Att Addend ---
Attending Addendum Attending Brief Note Patient sitting in the chair. Yesterday she became upset and in the S if when the procedure was continued be started in radiology. Appreciate agreed to go back today but with some sedation. Vital signs are stable, no fever and no major changes on physical. Her white count is still elevated. Will check with infectious diseases after the procedure to see if we have to adjust any of her medications Intake & Output 06/18 1600 06/18 0400 06/17 1600 06/17 0400 06/16 1600 06/16 0400 Intake Total 631.2 200 1334.0 1125 2083.2 146.7 Output Total 189 018 4588 810 1390 Balance 231.2 -100 209.0 315 693.2 146.7 Intake, IV 391.2 534.0 575 883.2 146.7 Intake, Oral 240 200 263 164 0592 Number 1 1 1 Bowel Movements Output, Chest 0 75 60 40 Tube Drainage Output, Urine 715 112 5493 750 1350 Patient 250 lb Weight Current Medications Sig/Suleman Start time Last Medication Dose Route Stop Time Status Admin Acetaminophen 1,000 MG Q6P PRN 06/17 1615 AC N/A 1 UNIT IV 06/18 161 Albuterol Sulfate 3 ML BID 06/15 2200 AC 06/18 INH 1033 Ampicillin Sodium/ 3,000 MG Q8H 06/17 1600 AC 06/18 Sulbactam Sodium IV 0957 Sodium Chloride 100 ML Aspirin Buffered 650 MG DAILY 06/13 1000 AC 06/17 PO 1701 Atorvastatin Calcium 40 MG 1700 06/15 1700 AC 06/17 PO 1701 Dextrose/Sodium 1,000 ML Q20H 06/18 1015 AC 06/18 Chloride IV 06/19 0614 1024 Docusate Sodium 100 MG BID 06/12 2359 AC 06/16 PO 2059 Furosemide 40 MG DAILY 06/13 1000 AC 06/17 PO 1701 Heparin Sodium 25,000 UNIT Q24H 06/17 1600 DC (Porcine) IV Sodium Chloride 500 ML Heparin Sodium 25,000 UNIT Q24H 06/17 1545 DC 06/17 (Porcine) IV 06/18 1000 1703 Sodium Chloride 500 ML Hydromorphone HCl 0.2 MG Q6-PRN PRN 06/16 1615 AC 06/17 IV 1229 Insulin Aspart 0 Q4 06/18 1030 AC 06/18 SC 1027 Insulin Aspart 0 TIDAC/HS 06/14 2100 DC 06/17 SC 2156 Insulin Detemir 35 UNITS BID 06/17 2200 AC 06/18 SC 1012 Insulin Detemir 30 UNITS BID 06/16 2200 DC 06/17 SC 1018 Lorazepam 0 .STK-MED ONE 06/17 1420 DC .ROUTE Lorazepam 1 MG ONCE ONE 06/17 1315 DC 06/17 IV 06/17 1316 1345 Nitroglycerin 0.5 GM Q6P PRN 06/15 1830 AC TOP Oxycodone HCl 20 MG Q12 PRN 06/16 2200 DC 06/16 PO 211 Potassium Chloride 40 MEQ BID 06/12 2359 DC 06/16 PO 2058 Pregabalin 75 MG BID 06/13 2200 AC 06/18 PO 101 Tiotropium [place] 1 PUF DAILY 06/14 1000 AC 06/18 INH 0957 Laboratory Tests 06/18/17 0708: Anion Gap 13, Estimated GFR 13 L, BUN/Creatinine Ratio 23.6, Magnesium 2.3, Total Bilirubin 0.4, Direct Bilirubin 0.4, AST 24, ALT 40, Alkaline Phosphatase 167 H, Total Protein 6.1 L, Albumin 2.5 L, APTT 102 *H, CBC w Diff MAN DIFF ORDERED, RBC 2.94 L, MCV 96.9, MCH 32.5 H, RDW 14.7 H, MPV 7.3 L, Gran % 94.0 H, Lymphocytes % 4.3 L, Monocytes % 1.5 L, Eosinophils % 0.1, Basophils % 0.1, Absolute Granulocytes 41.5 H, Segmented Neutrophils 85 H, Band Neutrophils 5, Absolute Lymphocytes 1.9, Lymphocytes 8 L, Absolute Monocytes 0.7 H, Absolute Eosinophils 0, Absolute Basophils 0.1, Metamyelocytes 1, Myelocytes 1 H, Platelet Estimate INCREASED, Anisocytosis 1+, PUBS MCHC 33.5 06/17/172199: APTT 96 H 06/17/17 0616: Anion Gap 15, Estimated GFR 15 L, BUN/Creatinine Ratio 23.9, APTT 61 H, CBC w Diff MAN DIFF ORDERED, RBC 3.65 L, MCV 97.0, MCH 32.5 H, RDW 14.5, MPV 7.2 L, Gran % 96.2 H, Lymphocytes % 3.0 L, Monocytes % 0.5 L, Eosinophils % 0.2, Basophils % 0.1, Absolute Granulocytes 44.5 H, Segmented Neutrophils 87 H, Band Neutrophils 5, Absolute Lymphocytes 1.4, Lymphocytes 4 L, Monocytes 2, Absolute Monocytes 0.2, Absolute Eosinophils 0.1, Absolute Basophils 0, Metamyelocytes 1, Myelocytes 1 H, Platelet Estimate INCREASED, Anisocytosis 1+, PUBS MCHC 33.5 06/16/17 2319: APTT 70 H 06/16/17 1342: APTT 57 H 06/16/17 0644: Anion Gap 14, Estimated GFR 15 L, BUN/Creatinine Ratio 25.6 H, CBC w Diff NO MAN DIFF REQ, RBC 3.23 L, MCV 97.4, MCH 32.5 H, RDW 14.7 H, MPV 6.6 L, Gran % 95.0 H, Lymphocytes % 3.8 L, Monocytes % 0.7 L, Eosinophils % 0.5, Basophils % 0, Absolute Granulocytes 27.2 H, Absolute Lymphocytes 1.1 L, Absolute Monocytes 0.2, Absolute Eosinophils 0.2, Absolute Basophils 0, PUBS MCHC 33.3 06/16/17 0030: APTT 77 H 06/15/17 1931: Lactic Acid Cancelled 06/15/17 1830: pH 7.30 *L, pCO2 33 L, pO2 82, HCO3 16 L, ABG O2 Sat (Measured) 94.0 L, P-50 (Temp Corrected) N, Carboxyhemoglobin 0.4 L, O2 Concentration % 4.5L, Temperature 98.0, O2 Delivery Method NC, Phlebotomy Draw Site RIGHT RADIAL 06/15/17 1725: Anion Gap 13, Estimated GFR 12 L, BUN/Creatinine Ratio 22.1, Lactic Acid 0.8 06/15/17 1550: APTT 59 H Vital Signs Date Time Temp Pulse Resp B/P B/P Pulse O2 O2 Flow FiO2 Mean Ox Delivery Rate 06/18 1157 Nasal 4.5L Cannula 06/18 1033 95 Nasal 4.5L Cannula 06/18 0648 96.6 83 22 112/62 95 Nasal 6.0L Cannula 06/18 0000 Nasal 4.5L Cannula 06/17 2209 98.4 95 20 130/70 95 06/17 1942 94 Nasal 4.0L Cannula 06/17 1600 Nasal 4.5L Cannula 06/17 1548 98.7 110 20 182/90 94 Nasal 7.0L Cannula
[2017-06-18 14:31] VITALS: BP 148/70
--- NOTE | 2017-06-18 15:33 | PN- Thoracic Surgery ---
Subjective Subjective: Episode in radiology yesterday were patient would not consent to catheter replacement. She is scheduled to go down today for the procedure with the anesthesia present. She appears comfortable this morning. Objective Vital Signs and I&Os Vital Signs Date Time Temp Pulse Resp B/P B/P Pulse O2 O2 Flow FiO2 Mean Ox Delivery Rate 06/18 1431 97.8 90 20 148/70 95 Nasal 4.5L Cannula 06/18 1157 Nasal 4.5L Cannula 06/18 1033 95 Nasal 4.5L Cannula 06/18 0800 Nasal 4.5L Cannula 06/18 0648 96.6 83 22 112/62 95 Nasal 6.0L Cannula 06/18 0000 Nasal 4.5L Cannula 06/17 2209 98.4 95 20 130/70 95 06/17 1942 94 Nasal 4.0L Cannula 06/17 1600 Nasal 4.5L Cannula 06/17 1548 98.7 110 20 182/90 94 Nasal 7.0L Cannula Intake & Output 06/18 1600 06/18 0800 06/18 0000 06/17 1600 06/17 0800 06/17 0000 Intake Total 395.6 631.2 200 813.6 520.4 1125 Output Total 300 400 300 200 985 750 Balance 95.6 231.2 -100 613.6 -464.6 375 Intake, IV 395.6 391.2 213.6 320.4 575 Intake, Oral 240 200 600 200 550 Number 1 1 1 1 Bowel Movements Output, Chest 0 135 Tube Drainage Output, Urine 300 400 300 200 850 750 Patient 250 lb Weight Physical Exam: Breath sounds diminished on right side. Catheter in place with no drainage. Current Medications: Current Medications Sig/Suleman Start time Last Medication Dose Route Stop Time Status Admin Acetaminophen 1,000 MG Q6P PRN 06/17 1615 AC N/A 1 UNIT IV 06/18 1614 Albuterol Sulfate 3 ML BID 06/15 2200 AC 06/18 INH 1033 Ampicillin Sodium/ 3,000 MG Q8H 06/17 1600 AC 06/18 Sulbactam Sodium IV 0957 Sodium Chloride 100 ML Aspirin Buffered 650 MG DAILY 06/13 1000 AC 06/17 PO 1701 Atorvastatin Calcium 40 MG 1700 06/15 1700 AC 06/17 PO 1701 Dextrose/Sodium 1,000 ML Q20H 06/18 1015 AC 12/28 Chloride IV 06/19 0614 1024 Docusate Sodium 100 MG BID 06/12 2359 AC 06/16 PO 2058 Furosemide 40 MG DAILY 06/13 1000 AC 06/17 PO 1701 Heparin Sodium 25,000 UNIT Q24H 06/17 1600 DC (Porcine) IV Sodium Chloride 500 ML Heparin Sodium 25,000 UNIT Q24H 06/17 1545 DC 06/17 (Porcine) IV 06/18 1000 1703 Sodium Chloride 500 ML Hydromorphone HCl 0.2 MG Q6-PRN PRN 06/16 1615 AC 06/17 IV 1229 Insulin Aspart 0 Q4 06/18 1030 AC 06/18 SC 1353 Insulin Aspart 0 TIDAC/HS 06/14 2100 DC 06/17 SC 2156 Insulin Detemir 35 UNITS BID 06/17 2200 AC 06/18 SC 1012 Insulin Detemir 30 UNITS BID 06/16 2200 DC 06/17 SC 1018 Nitroglycerin 0.5 GM Q6P PRN 06/15 1830 AC TOP Oxycodone HCl 20 MG Q12 PRN 06/16 2200 DC 06/16 PO 2112 Potassium Chloride 40 MEQ BID 06/12 2359 DC 06/16 PO 2058 Pregabalin 75 MG BID 06/13 2200 AC 06/18 PO 1012 Tiotropium [place] 1 PUF DAILY 06/14 1000 AC 06/18 INH 0957 Results Last 48 Hours of Labs: Laboratory Tests 06/18 06/17 0708 2200 Chemistry Sodium (137 - 145 mmol/L) 137 Potassium (3.5 - 5.1 mmol/L) 5.4 H Chloride (98 - 107 mmol/L) 106 Carbon Dioxide (22 - 30 mmol/L) 18 L Anion Gap (5 - 16) 13 BUN (7 - 17 mg/dL) 85 H Creatinine (0.5 - 1.0 mg/dL) 3.6 H Estimated GFR (>60 ml/min) 13 L BUN/Creatinine Ratio (7 - 25 %) 23.6 Magnesium (1.6 - 2.3 mg/dL) 2.3 Total Bilirubin (0.2 - 1.3 mg/dL) 0.4 Direct Bilirubin (< 0.4 mg/dL) 0.4 AST (14 - 36 U/L) 24 ALT (9 - 52 U/L) 40 Alkaline Phosphatase (<127 U/L) 167 H Total Protein (6.3 - 8.2 g/dL) 6.1 L Albumin (3.5 - 5.0 g/dL) 2.5 L Coagulation APTT (25 - 37 SEC) 102 *H 96 H Hematology CBC w Diff MAN DIFF ORDERED WBC (4.8 - 10.8 /CUMM) 44.1 *H RBC (4.20 - 5.40 /CUMM) 2.94 L Hgb (12.0 - 16.0 G/DL) 9.5 L Hct (37 - 47 %) 28.4 L MCV (81.0 - 99.0 FL) 96.9 MCH (27.0 - 31.0 PG) 32.5 H RDW (11.5 - 14.5 %) 14.7 H Plt Count (130 - 400 /CUMM) 501 H MPV (7.4 - 10.4 FL) 7.3 L Gran % (42.2 - 75.2 %) 94.0 H Lymphocytes % (20.5 - 51.1 %) 4.3 L Monocytes % (1.7 - 9.3 %) 1.5 L Eosinophils % (0 - 5 %) 0.1 Basophils % (0.0 - 2.0 %) 0.1 Absolute Granulocytes (1.4 - 6.5 /CUMM) 41.5 H Segmented Neutrophils (42.2 - 75.2 %) 85 H Band Neutrophils (0.0 - 5.0 %) 5 Absolute Lymphocytes (1.2 - 3.4 /CUMM) 1.9 Lymphocytes (20.5 - 51.1 %) 8 L Absolute Monocytes (0.10 - 0.60 /CUMM) 0.7 H Absolute Eosinophils (0.0 - 0.7 /CUMM) 0 Absolute Basophils (0.0 - 0.2 /CUMM) 0.1 Metamyelocytes (0.0 - 1.0 %) 1 Myelocytes (0 - 0 %) 1 H Platelet Estimate (ADEQUATE) INCREASED Anisocytosis 1+ PUBS MCHC (33.0 - 37.0 G/DL) 33.5 06/17 06/16 0616 2319 Chemistry Sodium (137 - 145 mmol/L) 138 Potassium (3.5 - 5.1 mmol/L) 5.3 H Chloride (98 - 107 mmol/L) 108 H Carbon Dioxide (22 - 30 mmol/L) 15 L Anion Gap (5 - 16) 15 BUN (7 - 17 mg/dL) 74 H Creatinine (0.5 - 1.0 mg/dL) 3.1 H Estimated GFR (>60 ml/min) 15 L BUN/Creatinine Ratio (7 - 25 %) 23.9 Coagulation APTT (25 - 37 SEC) 61 H 70 H Hematology CBC w Diff MAN DIFF ORDERED WBC (4.8 - 10.8 /CUMM) 46.3 *H RBC (4.20 - 5.40 /CUMM) 3.65 L Hgb (12.0 - 16.0 G/DL) 11.9 L Hct (37 - 47 %) 35.4 L MCV (81.0 - 99.0 FL) 97.0 MCH (27.0 - 31.0 PG) 32.5 H RDW (11.5 - 14.5 %) 14.5 Plt Count (130 - 400 /CUMM) 547 H MPV (7.4 - 10.4 FL) 7.2 L Gran % (42.2 - 75.2 %) 96.2 H Lymphocytes % (20.5 - 51.1 %) 3.0 L Monocytes % (1.7 - 9.3 %) 0.5 L Eosinophils % (0 - 5 %) 0.2 Basophils % (0.0 - 2.0 %) 0.1 Absolute Granulocytes (1.4 - 6.5 /CUMM) 44.5 H Segmented Neutrophils (42.2 - 75.2 %) 87 H Band Neutrophils (0.0 - 5.0 %) 5 Absolute Lymphocytes (1.2 - 3.4 /CUMM) 1.4 Lymphocytes (20.5 - 51.1 %) 4 L Monocytes (1.7 - 9.3 %) 2 Absolute Monocytes (0.10 - 0.60 /CUMM) 0.2 Absolute Eosinophils (0.0 - 0.7 /CUMM) 0.1 Absolute Basophils (0.0 - 0.2 /CUMM) 0 Metamyelocytes (0.0 - 1.0 %) 1 Myelocytes (0 - 0 %) 1 H Platelet Estimate (ADEQUATE) INCREASED Anisocytosis 1+ PUBS MCHC (33.0 - 37.0 G/DL) 33.5 Assessment/Plan Assessment/Plan Continued significant leukocytosis with undrained empyema. Catheter to be replaced today. If this is not possible or unsuccessful then she will need surgical drainage. Bedside chest tube placed by our service will not be effective and will not be possible. If catheter does get placed we will give a trial of lytics and hopeful resolution. Unfortunately given patient's clinical situation I suspect that surgical drainage will be necessary.
--- NOTE | 2017-06-18 15:47 | CT SCAN REPORT ---
CLINICAL HISTORY: This patient is a 61-year-old woman morbidly obese with empyema. Her existing drainage catheter has pulled out into the chest wall. A drainage catheter is requested. PROCEDURES: 1. Limited CT of the chest. 2. Placement of a 12 Fr locking all-purpose drainage catheter into the right pleural space under CT-guidance. 3. Removal of the other chest tube. PHYSICIANS: Dr. Goel (attending). MEDICATIONS: 10 mL of 1% lidocaine SQ. COMPLICATIONS: None. ESTIMATED BLOOD LOSS: <5 mL SPECIMENS: Dark old nonclotting sanguinous fluid. TOTAL DLP: 1631 mGy-cm. PROCEDURE NOTE: Informed consent was obtained from the patient prior to the procedure. During this process, the procedure and potential alternatives were explained along with the intended outcome and benefits. The risks of the procedure, including the possibility of an unsuccessful procedure, as well as the risk of not doing the procedure, were discussed. The patient was given the opportunity to ask questions regarding the procedure and appeared competent to make decisions. A signed consent form documenting this discussion was placed in the medical record. A time-out procedure was performed. The procedure was performed with monitored anesthesia care. The patient was placed in the left lateral decubitus position on the CT table. A limited CT of the chest was performed to localize the loculated right pleural collection and choose appropriate needle access entry point and trajectory. The right lateral chest was prepped and draped in usual sterile fashion. The skin and subcutaneous tissues were anesthetized with lidocaine. A 10 cm Yueh needle was advanced under CT fluoroscopic guidance into the pleural effusion. A 0.035 in Amplatz super stiff wire was advanced through the needle and coiled in the effusion. The needle was removed and dilated with 8, 10, and 12 Niuean fascial dilators and then a 12 Niuean locking drainage catheter was advanced over the wire. This hospital did not have a nonlocking catheter available. Catheter position within the effusion was confirmed by CT evaluation. The wire was removed from the catheter and the tip was coiled within the fluid collection, again confirmed by CT evaluation. The drain was sutured to skin with 2-0 silk suture, secured with a StatLock, and dressed with Tegaderms. The catheter was then opened to a closed chest drainage system. The old catheter was removed and a Vaseline dressing and Tegaderm applied. A repeat culture was sent as requested by Dr. Munoz. The patient was then transferred to nuclear medicine for a V/Q study. FINDINGS: Large complex density right pleural effusion occupying 90% of the chest cavity. Near complete collapse of the right lung. Successful CT-guided pigtail catheter placement. IMPRESSION: Successful CT-guided 12 Niuean pigtail catheter placement into the right pleural space for drainage of a complex effusion. PLAN: 1. The patient was stable after the procedure and was transferred to nuclear medicine for her VQ scan and then will go to the PACU to recover from anesthesia. 2. Orders were written for -20 cm water low wall suction and a follow-up portable chest x-ray.
--- NOTE | 2017-06-18 16:03 | Discharge Summary ---
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 Labs revealed white blood cell count of 47,000, with 93 segs, bands, BUN/ creatinine 65 and 3.7, alkaline phosphatase 243, AST/ALT 42 and 52, troponin 0.23, proBNP 2520, INR 1.33 ABG 7.26/ 40/77 on 6 L/m. UA than 75 WBCs. ED EKG: Sinus tachycardia, right bundle branch block and left anterior fascicular block, LVH with lateral ST depressions. Chest x-ray revealed an opacity in the right hemithorax. Doppler:, thrombus is seen within the greater saphenous vein of the proximal thigh, extending to the saphenofemoral junction but not involving the femoral vein. - #1 Acute hypoxic respiratory failure likely secondary to community-acquired pneumonia/empyema/hydropneumothorax Patient presented with a several week history of a cough, occasionally productive of yellow sputum, undocumented fevers with chills, and more recent onset of right sided chest pain and increasing shortness of breath, found to be afebrile with a marked leukocytosis, hypoxia and with an opacity in the right hemithorax, suggestive of a combination of consolidation and effusion. Ultrasound of right chest was done which showed moderate pleural effusion and empyema which was drained with Pleurx catheter. Fluid was found to not be grossly purulent. Fluid composition showed elevated WBCs, RBCs, pH 6.4, LDH of 3819. Fluid was found to be exudative in nature. Catheter drained 550 mL of serous sanguinous fluid. She was Stable status post placement of a pigtail catheter in the right chest for an empyema, with Haemophilus influenza isolated from the blood culture but with the pleural fluid culture so far negative. She remained afebrile with her white blood cell count remained elevated on Unasyn. Her chest x-ray suggested undrained fluid with worsening leukocytosis, CT surgeon was consulted regarding lytics therapy. Meanwhile Her existing drainage catheter has pulled out into the chest wall. Patient had replacement of pigtail catheter in new position to aid in removal of fluid on 06/18/2017. Follow-up CAT scan on 06/20 showed improvement of right-sided pleural effusion and also has Residual moderate-sized pleural effusion with multiple new air pockets. She underwent right thoracotomy with drainage of an empyema and decortication of the right lower lobe status post [address] surgeon on 2017. One of the chest tubes was removed on 06/25/2017. The other chest tube was removed on 07/01/2017. Chest tube was in place until the drainage was less than 100 mL per day. OR culture June 23 labeled right chest fluid negative, with AFB smear negative Unasyn was discontinued on 07/03/2017, started on Augmentin, stopped on 2017. #2 Pleuritic chest pain with positive troponins: Patient had some new EKG changes with positive troponins. Chest pain was mostly pleuritic. Troponins trended down. Likely type II AR in the setting of hypoxic respiratory failure which may be secondary to infection/pulmonary embolism. Clinically the patient has shortness of breath, pleuritic pain, low oxygen saturation consistent with empyema. She was started on IV heparin in ED which was continued. We are unable to get CTA in the setting of renal insufficiency. The patient has an IVC filter but of note this is not 100% reliable in the prevention of pulmonary embolism and of course does not help with an actual lower extremity thrombosis. She was continued on aspirin, statin, IV heparin drip. However IV heparin drip was discontinued on 06/23/2017 after thoracotomy for 48 hours. After the patient was found to have acute blood loss anemia requiring 10 units of transfusion, status post EGD and colonoscopy. IV heparin was never restarted. Intermediate probability of pulmonary embolism VQ scan showed intermediate probability for pulmonary embolism. Patient was on IV heparin drip as per ice cream server. patient was found to have acute blood loss anemia requiring 10 units of transfusion, status post EGD and colonoscopy. IV heparin was never restarted. #3 Urinary tract infection: Dirty urine, cultures positive for MRSA. She received 3 day course of vancomycin for lower UTI. Infectious disease specialist onboard. The candiduria likely represents colonization, status post a recent Guzman catheter, and, as she is asymptomatic, this should not require treatment. #4 Right knee pain: Patient notes a chronic moderate right knee pain. Severe tricompartmental osteoarthritis seen on xray. Pain controlled with iv tylenol. #5 Insulin-dependent diabetes mellitus: levemir 12 units twice a day and insulin sliding scale NovoLog as per top printing press operator. #6 Elevated proBNP at 2590 No prior echocardiogram on record. Given her shortness of breath, we planed to get an echocardiogram. She was given Lasix 40 mg daily. Daily weights were monitored. Echocardiogram showed ejection fraction 70%. And normal diastolic filling pattern. #7 Acute kidney injury on chronic kidney disease AMEYA on Chronic kidney disease. She has diabetic nephropathy. She was seen by nephrology in the past and was found to have roughly 6.7 g of protein per gram of creatinine. This would be consistent with nephrotic range proteinuria due to diabetic nephropathy. Her renal function is actually close to her baseline after gentle hydration. #8. chronic Metabolic acidosis. Continued to monitor. [employer] on board. No recommendations for sodium bicarbonate orally. She was restricted on 2 g sodium diet in the hospital. Strict ins and outs and daily weights were monitored. Acute blood loss anemia Acute blood loss anemia most possibly from IV heparin. Her H&H dropped to 6.1 and she was transfused 10 units of PRBC. She was on empiric Protonix 40 milligram IV daily. Further CT chest/abd/pelvis without contrast showed no definite evidence for an intrathoracic, abdominal or pelvic hematoma. GI was consulted and she underwent EGD 06/30 which showed superficial nonbleeding esophageal erosion. On 06/30/17 she was noted to have a large melanotic bowel movement. Impression: 1. Superficial nonbleeding esophageal erosion at 35 cm, left intact. 2. 1+ nonerosive distal GERD with minimally irregular Z line at 40 cm, left intact. 3. Scant sliding hiatal hernia pouch, without any Freddie erosions. 4. Mildly inflamed gastric cardia, just below Z line on retroflexion, left intact. 5. Minimal prepyloric antral erythema, left intact. She underwent colonoscopy on 07/02/2017 which showed moderate left-sided diverticula, normal colon mucosa to terminal ileum. She was advised to take Protonix daily at home. She has to follow up with leather tanner as an outpatient for PillCam. Anxiety-continued Xanax. Mental health-continued on citalopram -Pain Control -Diabetic diet -DVT prophylaxis alps -Full code Allergies: Coded Allergies: NO KNOWN ALLERGIES (NONE 06/26/17) Significant Procedures: CLINICAL HISTORY: This patient is a 61-year-old woman morbidly obese with question of empyema. A drainage catheter is requested. PROCEDURES: 1. Limited CT of the chest. 2. Placement of a 12 Fr locking all-purpose drainage catheter into the right pleural space under CT-guidance. PHYSICIANS: Dr. Goel (attending). The attending radiologist was present during the procedure and related imaging, and reviewed the report. MEDICATIONS: 10 mL of 1% lidocaine SQ. COMPLICATIONS: None. ESTIMATED BLOOD LOSS: <5 mL SPECIMENS: Lightly blood-tinged mostly serous fluid. TOTAL DLP: 557 mGy-cm. PROCEDURE NOTE: Informed consent was obtained from the patient prior to the procedure. During this process, the procedure and potential alternatives were explained along with the intended outcome and benefits. The risks of the procedure, including the possibility of an unsuccessful procedure, as well as the risk of not doing the procedure, were discussed. The patient was given the opportunity to ask questions regarding the procedure and appeared competent to make decisions. A signed consent form documenting this discussion was placed in the medical record. A time-out procedure was performed. The patient was placed in the supine position on the CT table. A limited CT of the chest was performed to localize the loculated right pleural collection and choose appropriate needle access entry point and trajectory. The right lateral chest was prepped and draped in usual sterile fashion. The skin and subcutaneous tissues were anesthetized with lidocaine. The pleural space was over 10 cm in depth so I needed to use an 15 cm 18-gauge Saez Kassie needle. This was advanced under fluoroscopic guidance into the right pleural effusion. A 0.035 in Amplatz super stiff wire was advanced through the needle and coiled in the effusion. The needle was removed and dilated with 8, 10, and 12 Bahamian fascial dilators and then a 12 Bahamian locking drainage catheter was advanced over the wire. This hospital did not have a nonlocking catheter available. Catheter position within the effusion was confirmed by CT evaluation. The wire was removed from the catheter and the tip was coiled within the fluid collection, again confirmed by CT evaluation. The drain was sutured to skin with 2-0 silk suture, secured with a StatLock, and dressed with Tegaderms. The catheter was then opened to a closed chest drainage system. Labs were sent as requested by the ICU team. FINDINGS: Loculated right pleural effusion. Aspiration of slightly blood-tinged serous fluid. This was not grossly purulent by visible inspection. Successful placement of a 12 Bahamian pigtail as right pleural chest tube. IMPRESSION: Successful CT-guided 12 Bahamian pigtail catheter placement into the right pleural space for suspicion of empyema. The fluid was not grossly purulent. PLAN: 1. The patient was stable after the procedure and was transferred back to the ICU in stable condition. 2. Orders were written for -20 cm water low wall suction and a follow-up portable chest x-ray. -- CLINICAL HISTORY: This patient is a 61-year-old woman morbidly obese with empyema. Her existing drainage catheter has pulled out into the chest wall. A drainage catheter is requested. PROCEDURES: 1. Limited CT of the chest. 2. Placement of a 12 Fr locking all-purpose drainage catheter into the right pleural space under CT-guidance. 3. Removal of the other chest tube. PHYSICIANS: Dr. Goel (attending). MEDICATIONS: 10 mL of 1% lidocaine SQ. COMPLICATIONS: None. ESTIMATED BLOOD LOSS: <5 mL SPECIMENS: Dark old nonclotting sanguinous fluid. TOTAL DLP: 1631 mGy-cm. PROCEDURE NOTE: Informed consent was obtained from the patient prior to the procedure. During this process, the procedure and potential alternatives were explained along with the intended outcome and benefits. The risks of the procedure, including the possibility of an unsuccessful procedure, as well as the risk of not doing the procedure, were discussed. The patient was given the opportunity to ask questions regarding the procedure and appeared competent to make decisions. A signed consent form documenting this discussion was placed in the medical record. A time-out procedure was performed. The procedure was performed with monitored anesthesia care. The patient was placed in the left lateral decubitus position on the CT table. A limited CT of the chest was performed to localize the loculated right pleural collection and choose appropriate needle access entry point and trajectory. The right lateral chest was prepped and draped in usual sterile fashion. The skin and subcutaneous tissues were anesthetized with lidocaine. A 10 cm Tribold needle was advanced under CT fluoroscopic guidance into the pleural effusion. A 0.035 in Amplatz super stiff wire was advanced through the needle and coiled in the effusion. The needle was removed and dilated with 8, 10, and 12 Bahamian fascial dilators and then a 12 Bahamian locking drainage catheter was advanced over the wire. This hospital did not have a nonlocking catheter available. Catheter position within the effusion was confirmed by CT evaluation. The wire was removed from the catheter and the tip was coiled within the fluid collection, again confirmed by CT evaluation. The drain was sutured to skin with 2-0 silk suture, secured with a StatLock, and dressed with Tegaderms. The catheter was then opened to a closed chest drainage system. The old catheter was removed and a Vaseline dressing and Tegaderm applied. A repeat culture was sent as requested by Dr. Munoz. The patient was then transferred to nuclear medicine for a V/Q study. FINDINGS: Large complex density right pleural effusion occupying 90% of the chest cavity. Near complete collapse of the right lung. Successful CT-guided pigtail catheter placement. IMPRESSION: Successful CT-guided 12 Bahamian pigtail catheter placement into the right pleural space for drainage of a complex effusion. PLAN: 1. The patient was stable after the procedure and was transferred to nuclear medicine for her VQ scan and then will go to the PACU to recover from anesthesia. 2. Orders were written for -20 cm water low wall suction and a follow-up portable chest x-ray. Pertinent Lab Results: cxr FINDINGS: Patient has a large body habitus. There is a new opacity of the inferolateral right hemithorax that obscures the diaphragm. This could represent a combination of peripheral consolidation with possible [id number] pleural effusion. The left lung is well expanded and clear with exception of a linear focus of atelectasis in the inferior lingula. The left lung apex is obscured by patient's overlying chin. Cardiomegaly. The visualized bones are intact. IMPRESSION: 1. The opacity in the inferolateral right hemithorax probably represents a combination of consolidation (i.e., pneumonia) and pleural effusion. 2. Cardiomegaly without pulmonary edema. -- FINDINGS: The right common femoral vein is compressible. Within the proximal thigh, the visualized profunda femoris vein is patent. The examined greater saphenous vein contains noncompressible thrombus which approaches the saphenofemoral junction, but does not involve the common femoral vein. Superficial femoral vein is is normal in the proximal, mid and distal thigh. Popliteal vein appears normal to the level of the trifurcation. On grayscale and color Doppler images, the visualized calf veins are grossly patent. No evidence of Magallanes's cyst. IMPRESSION: - No evidence of deep vein thrombosis in the right lower extremity. - However, thrombus is seen within the greater saphenous vein of the proximal thigh, extending to the saphenofemoral junction but not involving the femoral vein. chest u FINDINGS: The right common femoral vein is compressible. Within the proximal thigh, the visualized profunda femoris vein is patent. The examined greater saphenous vein contains noncompressible thrombus which approaches the saphenofemoral junction, but does not involve the common femoral vein. Superficial femoral vein is is normal in the proximal, mid and distal thigh. Popliteal vein appears normal to the level of the trifurcation. On grayscale and color Doppler images, the visualized calf veins are grossly patent. No evidence of Magallanes's cyst. IMPRESSION: - No evidence of deep vein thrombosis in the right lower extremity. - However, thrombus is seen within the greater saphenous vein of the proximal thigh, extending to the saphenofemoral junction but not involving the femoral vein. xr IMPRESSION: Stable position of right-sided chest tube overlying the mid right lung field. There remains a moderate size right pleural effusion and right basilar atelectasis. Superimposed infiltrate would be difficult to exclude. chest ct FINDINGS: PLEURA/LUNGS: Asymmetric elevation of right diaphragm compared to left. There is a cyst moderate volume right pleural effusion. Pigtail chest tube catheter lies at the right lung base laterally. There is no pneumothorax. There is no left pleural effusion. There is consolidation atelectasis at the right lung base. MEDIASTINUM: 1 cm shotty lymph nodes in the pretracheal retrovascular space at the william. 1.5 cm lymph node in the subcarina. AXILLA: No lymphadenopathy. UPPER ABDOMEN: Status post cholecystectomy. Degenerative glands are normal. Visualized portions of liver and spleen are normal. OSSEOUS STRUCTURES: Degenerative spondylosis of spine with multilevel disc height narrowing and endplate spur of the vertebrae. IMPRESSION: 1. Pigtail catheter and pleural space with moderate volume right pleural effusion. No pneumothorax. Atelectasis at the right lung base. cxr FINDINGS: Stable cardiomediastinal silhouette. Opacity along the right medial upper lung zone likely represents loculated pleural fluid. Similar small to moderate right pleural effusion with associated right basilar airspace disease. The left lung is grossly clear. No pneumothorax. Compared to the prior study, the pigtail chest tube has been retracted with some the sideholes appearing in the subcutaneous tissues. No acute osseous abnormality. IMPRESSION: Interval retraction of the right pigtail chest tube with some the sideholes now seen within the subcutaneous tissues tissues. Small to moderate right pleural effusion. kneexry FINDINGS: Severe tricompartmental osteoarthritic degenerative changes are noted with joint space narrowing, large marginal osteophytes and subchondral sclerosis. The changes are most pronounced in the medial compartment. No acute fracture or dislocation. No erosion or aggressive osseous destruction. No joint effusion. No abnormal soft tissue calcification. IMPRESSION: Severe tricompartmental osteoarthritis. ct 06/20 IMPRESSION: 1. The size of the right-sided pleural effusion has decreased since 06/18/2017. Residual moderate-sized pleural effusion is still present with multiple new air pockets possibly related to recent intervention. ---- lE DOPPLER 06/20 IMPRESSION: 1. Persistent stable superficial venous thrombus within the right greater saphenous vein, unchanged since 06/12/2017. 2. Occlusive thrombus within the left superficial femoral vein (part of the deep system) with patent left common femoral and popliteal veins. ---- Disposition Summary Disposition Principal Diagnosis: Acute hypoxic respiratory failure Pneumonia/parapneumonic effusion/empyema Type II AR AMEYA ON CKD UTI Acute blood loss anemia Additional Diagnosis: Right knee pain Discharge Disposition: home health services Discharge Instructions General Discharge Information Code Status: Full Code Patient's Diet: As tolerated Patient's Activity: As tolerated Follow-Up Instructions/Appts: Please follow-up with PCP in one week after discharge. Please follow-up with market master in 1 week after discharge Please follow-up with top printing press operator in 1 week after discharge Please follow-up with your ice cream server in 1 week after discharge Please follow-up last model department supervisor in 1-2 weeks after discharge Please follow-up with CT surgery in 1-2 weeks after discharge Please follow-up with the leather tanner as an outpatient for PillCam study in 1-2 weeks after discharge Medications at Discharge Discharge Medications: Stop taking the following medications: Insulin Detemir (Levemir) 100 UNIT/ML VIAL Inject into fatty tissue Every Morning Insulin Detemir (Levemir) 100 UNIT/ML VIAL Inject into fatty tissue Every night Aspirin (Ecotrin*) 325 MG TABLET.DR ORAL DAILY Continue taking these medications: Citalopram Hydrobromide (Citalopram HBr) 20 MG TABLET 1 Tablet ORAL DAILY Qty = 90 Comments: NOT GIVEN IN HOSPITAL Tiotropium [place] (Spiriva) 18 MCG CAP.W.DEV 1 Capsule Inhale through mouth DAILY Qty = 90 Comments: Last Taken: 07/07/17 Time: 09:07 Furosemide (Furosemide) 40 MG TABLET 40 Milligram ORAL DAILY Qty = 135 Comments: NOT GIVEN IN THE HOSPITAL Oxycodone HCl (Oxycontin) 80 MG TAB.ER.12H 1 Tablet ORAL THREE TIMES DAILY as needed for PAIN Qty = 90 Comments: NOT GIVEN IN THE HOSPITAL Alprazolam (Alprazolam) 0.25 MG TABLET 1 Tablet ORAL 2 x Daily as needed as needed for ANXIETY Qty = 60 Comments: Last Taken: 07/07/17 Time: 09:06 Insulin Aspart, Recombinant (Novolog Flexpen) 100 UNIT/ML INSULN.PEN Units Inject into fatty tissue BEFORE MEALS AND AT BEDTIME Qty = 90 Comments: Last Taken: 07/07/17 Time: 12:36 Pregabalin (Lyrica) 150 MG CAPSULE 1 Capsule ORAL DAILY Qty = 90 Comments: NOT GIVEN IN THE HOSPITAL Docusate Sodium (Colace) 100 MG CAPSULE 1 Capsule ORAL TWICE DAILY Comments: Last Taken: 07/07/17 Time: 09:06 Ergocalciferol (Vitamin D2) (Vitamin D2) 50,000 UNIT CAPSULE 1 Capsule ORAL EVERY 2 WEEKS Qty = 6 Comments: NOT GIVEN IN HOSPITAL Cyanocobalamin (Vitamin B-12) (B-12) 1,000 MCG TABLET 1 Tablet ORAL DAILY Qty = 30 Comments: NOT GIVEN IN HOSPITAL Linagliptin (Tradjenta) 5 MG TABLET 1 Tablet ORAL DAILY Qty = 90 Comments: NOT GIVE IN THE HOSPITAL Start taking the following new medications: Albuterol Sulfate (Albuterol Sulfate) 2.5 MG/3 ML (0.083 %) VIAL.NEB 3 Milliliters Inhale through mouth TWICE DAILY as needed for sob Qty = 30 No Refills Comments: Last Taken: 07/07/17 Time: 10:02 Buspirone HCl (Buspirone HCl) 5 MG TABLET 5 Milligram ORAL TWICE DAILY Qty = 30 No Refills Comments: Last Taken: 07/07/17 Time: 09:06 Insulin Detemir (Levemir) 100 UNIT/ML VIAL 12 Units Inject into fatty tissue TWICE DAILY Qty = 1 No Refills Comments: Last Taken: 07/07/17 Time: 09:05 Lidocaine (Lidoderm) 5 % ADH..PATCH 1 Patch ON SKIN DAILY as needed for pain Qty = 30 No Refills Comments: Last Taken: 07/07/17 Time: 1656 Melatonin (Melatonin) 5 MG TABLET 5 Milligram ORAL AT BEDTIME as needed for sleep Qty = 30 No Refills Comments: Last Taken: 07/06/17 Time: 21:06 Nitroglycerin (Nitro-Bid) 2 % OINT...G. 0.5 Gram On the skin EVERY SIX HOURS NEEDED as needed for CHEST PAIN Qty = 1 No Refills Comments: NOT GIVEN IN THE HOSPITAL Polycarbophil (Fiber) 625 MG TABLET 1,250 Milligram ORAL DAILY Qty = 30 No Refills Comments: Last Taken: 07/07/17 Time: 09:07 Ramelteon (Rozerem) 8 MG TABLET 8 Milligram ORAL GIVE ONCE as needed for SLEEP Qty = 30 No Refills Comments: Last Taken: 07/07/17 Time: 01:01 Omeprazole (Omeprazole) 40 MG CAPSULE.DR 1 Capsule ORAL DAILY Qty = 30 No Refills Comments: NOT GIVE IN THE HOSPITAL Copies To: Saúl RODAS,[place]
--- NOTE | 2017-06-18 16:43 | RADIOLOGY REPORT ---
EXAMINATION:\H\ \N\XR CHEST CLINICAL INFORMATION: Right chest tube placement. COMPARISON: Chest x-ray 06/16/2017, CT chest tube insertion 06/18/2017. TECHNIQUE: Portable AP view of the chest was obtained. FINDINGS: There is a new right-sided pigtail catheter over the right chest. The catheter appears in good position. No obvious pneumothorax. Some improvement in the pleural effusion compared to the CT chest 06/18/2017. The left lung is clear. Cardiac silhouette is not well evaluated due to the size of the right pleural effusion. IMPRESSION: Large right pleural effusion, mildly improved compared to CT chest earlier today. Some reexpansion of the right lung has occurred.
--- NOTE | 2017-06-18 17:26 | PN- Infect Dx ---
Subjective Subjective: Afebrile. She feels much improved status post replacement of the right-sided chest tube Objective Last 24 Hrs of Vital Signs/I&O Vital Signs Date Time Temp Pulse Resp B/P B/P Pulse O2 O2 Flow FiO2 Mean Ox Delivery Rate 06/18 1431 97.8 90 20 148/70 95 Nasal 4.5L Cannula 06/18 1157 Nasal 4.5L Cannula 06/18 1033 95 Nasal 4.5L Cannula 06/18 0800 Nasal 4.5L Cannula 06/18 0648 96.6 83 22 112/62 95 Nasal 6.0L Cannula 06/18 0000 Nasal 4.5L Cannula 06/17 2209 98.4 95 20 130/70 95 06/17 1942 94 Nasal 4.0L Cannula Intake & Output 06/18 1600 06/18 0800 06/18 0000 Intake Total 395.6 631.2 200 Output Total 300 400 300 Balance 95.6 231.2 -100 Intake, IV 395.6 391.2 Intake, Oral 240 200 Number 1 1 Bowel Movements Output, Chest 0 Tube Drainage Output, Urine 300 400 300 Patient 250 lb Weight Physical Exam Other Physical Findings: She appears comfortable in no acute distress Chest chest tube on the right, with 1500 mL of fluid drained Results Last 24 Hours of Lab Results: Laboratory Tests 06/18 06/17 0708 2200 Chemistry Sodium (137 - 145 mmol/L) 137 Potassium (3.5 - 5.1 mmol/L) 5.4 H Chloride (98 - 107 mmol/L) 106 Carbon Dioxide (22 - 30 mmol/L) 18 L Anion Gap (5 - 16) 13 BUN (7 - 17 mg/dL) 85 H Creatinine (0.5 - 1.0 mg/dL) 3.6 H Estimated GFR (>60 ml/min) 13 L BUN/Creatinine Ratio (7 - 25 %) 23.6 Magnesium (1.6 - 2.3 mg/dL) 2.3 Total Bilirubin (0.2 - 1.3 mg/dL) 0.4 Direct Bilirubin (< 0.4 mg/dL) 0.4 AST (14 - 36 U/L) 24 ALT (9 - 52 U/L) 40 Alkaline Phosphatase (<127 U/L) 167 H Total Protein (6.3 - 8.2 g/dL) 6.1 L Albumin (3.5 - 5.0 g/dL) 2.5 L Coagulation APTT (25 - 37 SEC) 102 *H 96 H Hematology CBC w Diff MAN DIFF ORDERED WBC (4.8 - 10.8 /CUMM) 44.1 *H RBC (4.20 - 5.40 /CUMM) 2.94 L Hgb (12.0 - 16.0 G/DL) 9.5 L Hct (37 - 47 %) 28.4 L MCV (81.0 - 99.0 FL) 96.9 MCH (27.0 - 31.0 PG) 32.5 H RDW (11.5 - 14.5 %) 14.7 H Plt Count (130 - 400 /CUMM) 501 H MPV (7.4 - 10.4 FL) 7.3 L Gran % (42.2 - 75.2 %) 94.0 H Lymphocytes % (20.5 - 51.1 %) 4.3 L Monocytes % (1.7 - 9.3 %) 1.5 L Eosinophils % (0 - 5 %) 0.1 Basophils % (0.0 - 2.0 %) 0.1 Absolute Granulocytes (1.4 - 6.5 /CUMM) 41.5 H Segmented Neutrophils (42.2 - 75.2 %) 85 H Band Neutrophils (0.0 - 5.0 %) 5 Absolute Lymphocytes (1.2 - 3.4 /CUMM) 1.9 Lymphocytes (20.5 - 51.1 %) 8 L Absolute Monocytes (0.10 - 0.60 /CUMM) 0.7 H Absolute Eosinophils (0.0 - 0.7 /CUMM) 0 Absolute Basophils (0.0 - 0.2 /CUMM) 0.1 Metamyelocytes (0.0 - 1.0 %) 1 Myelocytes (0 - 0 %) 1 H Platelet Estimate (ADEQUATE) INCREASED Anisocytosis 1+ PUBS MCHC (33.0 - 37.0 G/DL) 33.5 Last 24 Hours of Drew Results: Right pleural fluid culture June 13 positive for gram-negative rods Recent Imaging Studies: Chest x-ray June 18 reveals a new right-sided pigtail catheter in the right chest, with a large right pleural effusion, mildly improved compared to the previous study, with some reexpansion of the right lung Assessment/Plan Impression: Improved status post replacement of the right sided chest tube earlier today for a loculated effusion/empyema secondary to Haemophilus influenzae, isolated from the initial blood cultures and, likely, from the pleural fluid. She remains afebrile on Unasyn with her white blood cell count from this morning markedly elevated, presumably secondary to the undrained empyema, and suspect that it will now decrease. Suggestion: 1. Further management of her chest tube and further doses of lytics per Thoracic surgery 2. Follow-up final pleural fluid culture 3. Continue to follow temperatures and white blood cell count on Unasyn
--- NOTE | 2017-06-18 17:47 | NUCLEAR MEDICINE REPORT ---
EXAMINATION: NM LUNG SCAN PERFUSION ONLY CLINICAL INFORMATION: Evaluate for pulmonary embolism. Shortness of breath. Pleuritic chest pain. COMPARISON: Chest x-ray dated 06/18/[address] chest also dated 06/10/2017. TECHNIQUE: Perfusion scan performed following intravenous administration of 4 mCi technetium 99m MAA. Bilateral lungs were imaged in 6 different projections. FINDINGS: There is decreased activity noted throughout the right lung. This is compatible with low lung volume with decreased perfusion. This is especially evident along the outer aspect of right lung from apex to base. This is likely due to large right-sided effusion noted on the CT scan and chest x-ray with small amount of aerated lung along the medial aspect. Large area of compression atelectasis. Oblique-appearing perfusion defect likely representing fluid within the fissure noted in the mid right lung. IMPRESSION: Low right lung volume due to large right-sided effusion. Limited assessment of the perfused portion of the right lung. Based on the decreased perfusion of the peripheral portion of the right lung, findings are compatible with low to intermediate probability for acute pulmonary embolism. Non-segmental oblique perfusion defect likely due to fluid in the fissure. Critical results were discussed with Dr. Bernal at 5:17 PM on 06/10/2017.
[2017-06-18 23:02] VITALS: BP 142/60
[2017-06-19 06:55] VITALS: BP 144/54
--- NOTE | 2017-06-19 07:55 | PN- Diabetes ---
Assessment/Plan Assessment: This 61-year-old woman with a known history of type 2 diabetes mellitus associated with morbid obesity and with severe complications including a left below the knee amputation diabetic neuropathy and chronic kidney diseaseswtage 4 presented to the emergency room with respiratory failure. She has been found to have an empyema in her right chest. Yesterday a chest tube was inserted. She feels much improved. The patient is alert this morning. She sugars were high yesterday because her usual insulin was interrupted while she was nothing by mouth for insertion of the chest tube. Plan: Suggest resume the patient's usual insulin today. Continue to monitor her blood sugars. She is eating better. Adjustments irn her insulin regimen may be necessary after observing today's readings.. Subjective Subjective: feels improved Review of Systems Constitutional: Denies: chills, fever. Cardiovascular: Reports: chest pain (related to chest tube). Respiratory: Reports: cough, short of breath. Gastrointestinal: Denies: abdominal pain. Skin: Reports: no symptoms. Objective Last 24 Hrs of Vital Signs/I&O Vital Signs Date Time Temp Pulse Resp B/P B/P Pulse O2 O2 Flow FiO2 Mean Ox Delivery Rate 06/19 0655 98.2 70 22 144/54 92 Nasal Cannula 06/19 0000 Nasal 4.0L Cannula 06/18 2302 98.0 82 22 142/60 93 Nasal 4.0L Cannula 06/18 1945 92 Nasal 4.0L Cannula 06/18 1431 97.8 90 20 148/70 95 Nasal 4.5L Cannula 06/18 1157 Nasal 4.5L Cannula 06/18 1033 95 Nasal 4.5L Cannula Intake & Output 06/19 1600 06/19 0800 06/19 0000 Intake Total 622.6 750 Output Total 400 700 Balance 222.6 50 Intake, IV 422.6 Intake, Oral 200 750 Number 1 2 Bowel Movements Output, Urine 400 700 Vital Signs Date Time Temp Pulse Resp B/P B/P Pulse O2 O2 Flow FiO2 Mean Ox Delivery Rate 06/19 0655 98.2 70 22 144/54 92 Nasal Cannula 06/19 0000 Nasal 4.0L Cannula 06/18 2302 98.0 82 22 142/60 93 Nasal 4.0L Cannula 06/185 92 Nasal 4.0L Cannula 06/18 1431 97.8 90 20 148/70 95 Nasal 4.5L Cannula 06/18 1157 Nasal 4.5L Cannula 06/18 1033 95 Nasal 4.5L Cannula Intake & Output 06/19 1600 06/19 0800 06/19 0000 Intake Total 622.6 750 Output Total 400 700 Balance 222.6 50 Intake, IV 422.6 Intake, Oral 200 750 Number 1 2 Bowel Movements Output, Urine 400 700 Physical Exam General Appearance: alert, awake, comfortable Head: normal appearance Neck: normal inspection Respiratory: normal breath sounds Cardiovascular: regular rate/rhythm Abdomen: normal bowel sounds Current Medications: Current Medications Sig/Suleman Start time Last Medication Dose Route Stop Time Status Admin Acetaminophen 1,000 MG Q6P PRN 06/17 1615 DC N/A 1 UNIT IV 06/18 1614 Albuterol Sulfate 3 ML BID 06/15 2200 AC 06/18 INH 1033 Ampicillin Sodium/ 3,000 MG Q8H 06/17 1600 AC 06/19 Sulbactam Sodium IV 0037 Sodium Chloride 100 ML Aspirin Buffered 650 MG DAILY 06/13 1000 AC 06/18 PO 1819 Atorvastatin Calcium 40 MG 1700 06/15 1700 AC 06/18 PO 1819 Dextrose/Sodium 1,000 ML Q20H 06/18 1015 DC 06/18 Chloride IV 06/19 0614 1024 Docusate Sodium 100 MG BID 06/12 2359 AC 06/16 PO 2059 Fentanyl Citrate 100 MCG .STK-MED ONE 06/18 1358 DC IM 06/18 1359 Furosemide 40 MG DAILY 06/13 1000 AC 06/18 PO 1819 Heparin Sodium 25,000 UNIT Q24H 06/18 2130 AC 06/18 (Porcine) IV 2230 Sodium Chloride 500 ML Heparin Sodium 25,000 UNIT Q24H 06/17 1545 DC 06/17 (Porcine) IV 06/18 1000 1703 Sodium Chloride 500 ML Hydromorphone HCl 0.2 MG Q6-PRN PRN 06/16 1615 AC 06/19 IV 0606 Insulin Aspart 0 TIDAC/HS 06/18 1615 AC 06/18 SC 2212 Insulin Aspart 0 Q4 06/18 1030 DC 06/18 SC 1353 Insulin Aspart 0 TIDAC/HS 06/14 2100 DC 06/17 SC 2156 Insulin Detemir 40 UNITS BID 06/18 2200 AC 06/18 SC 2208 Insulin Detemir 35 UNITS BID 06/17 2200 DC 06/18 SC 1012 Ketamine HCl 50 MG .STK-MED ONE 06/18 1358 DC IM 06/18 1359 Midazolam HCl 2 MG .STK-MED ONE 06/18 1358 DC IM 06/18 1359 Nitroglycerin 0.5 GM Q6P PRN 06/15 1830 AC TOP Pregabalin 75 MG BID 06/13 2200 AC 06/18 PO 2217 Tiotropium [place] 1 PUF DAILY 06/14 1000 AC 06/18 INH 0957 Findings Pertinent Lab/Drew Results: Laboratory Tests 06/19 06/19 0633 0630 Chemistry Sodium Pending Potassium Pending Chloride Pending Carbon Dioxide Pending Anion Gap Pending BUN Pending Creatinine Pending BUN/Creatinine Ratio Pending Coagulation APTT Pending Hematology CBC w Diff Pending WBC Pending RBC Pending Hgb Pending Hct Pending MCV Pending MCH Pending RDW Pending Plt Count Pending MPV Pending PUBS MCHC Pending
--- NOTE | 2017-06-19 07:55 | PN- Pulmonary ---
Subjective HPI/Critical Care Issues: She status post replacement of pigtail catheter. There remains a significant amount of loculated pleural effusion with persistent leukocytosis. Objective Current Medications: Current Medications Sig/Suleman Start time Last Medication Dose Route Stop Time Status Admin Acetaminophen 1,000 MG Q6P PRN 06/17 1615 DC N/A 1 UNIT IV 06/18 1614 Albuterol Sulfate 3 ML BID 06/15 2200 AC 06/18 INH 1033 Ampicillin Sodium/ 3,000 MG Q8H 06/17 1600 AC 06/19 Sulbactam Sodium IV 0037 Sodium Chloride 100 ML Aspirin Buffered 650 MG DAILY 06/13 1000 AC 06/18 PO 1819 Atorvastatin Calcium 40 MG 1700 06/15 1700 AC 06/18 PO 1819 Dextrose/Sodium 1,000 ML Q20H 06/18 1015 DC 06/18 Chloride IV 06/19 0614 1024 Docusate Sodium 100 MG BID 06/12 2359 AC 06/16 PO 2059 Fentanyl Citrate 100 MCG .STK-MED ONE 06/18 1358 DC IM 06/18 1359 Furosemide 40 MG DAILY 06/13 1000 AC 06/18 PO 1819 Heparin Sodium 25,000 UNIT Q24H 06/18 2130 AC 06/18 (Porcine) IV 2230 Sodium Chloride 500 ML Heparin Sodium 25,000 UNIT Q24H 06/17 1545 DC 06/17 (Porcine) IV 06/18 1000 1703 Sodium Chloride 500 ML Hydromorphone HCl 0.2 MG Q6-PRN PRN 06/16 1615 AC 06/19 IV 0606 Insulin Aspart 0 TIDAC/HS 06/18 1615 AC 06/18 SC 2212 Insulin Aspart 0 Q4 06/18 1030 DC 06/18 SC 1353 Insulin Aspart 0 TIDAC/HS 06/14 2100 DC 06/17 SC 2156 Insulin Detemir 40 UNITS BID 06/18 2200 AC 06/18 SC 2208 Insulin Detemir 35 UNITS BID 06/17 2200 DC 06/18 SC 1012 Ketamine HCl 50 MG .STK-MED ONE 06/18 1358 DC IM 06/18 1359 Midazolam HCl 2 MG .STK-MED ONE 06/18 1358 DC IM 06/18 1359 Nitroglycerin 0.5 GM Q6P PRN 06/15 1830 AC TOP Pregabalin 75 MG BID 06/13 2200 AC 06/18 PO 2217 Tiotropium [place] 1 PUF DAILY 06/14 1000 AC 06/18 INH 0957 Vital Signs & I&O Last 24 Hrs of Vitals and I&O: Vital Signs Date Time Temp Pulse Resp B/P B/P Pulse O2 O2 Flow FiO2 Mean Ox Delivery Rate 06/19 0655 98.2 70 22 144/54 92 Nasal Cannula 06/19 0000 Nasal 4.0L Cannula 06/18 2302 98.0 82 22 142/60 93 Nasal 4.0L Cannula 06/18 1945 92 Nasal 4.0L Cannula 06/18 1431 97.8 90 20 148/70 95 Nasal 4.5L Cannula 06/18 1157 Nasal 4.5L Cannula 06/18 1033 95 Nasal 4.5L Cannula 06/18 0800 Nasal 4.5L Cannula Intake & Output 06/19 0800 06/19 0000 06/18 1600 Intake Total 622.6 750 395.6 Output Total 400 700 300 Balance 222.6 50 95.6 Intake, IV 422.6 395.6 Intake, Oral 200 750 Number 1 2 1 Bowel Movements Output, Urine 400 700 300 Oxygen saturation 4 L 92% exam for chest shows diminished breath sounds over the right posterior hemithorax cardiac exam shows regular S1 and S2 without murmurs Impression/Plan Impression/Plan Impression/Plan: 61-year-old with right-sided empyema secondary to community-acquired pneumonia with associated sepsis. Patient has persistent loculated effusion and leukocytosis Recommendations: Repeat CT scan of the chest if there remains a significant loculated effusion patient may well require VATS for complete drainage and placement of formal chest tube
[2017-06-19 08:17] LABS: PTT 53 SEC (25-37)
[2017-06-19 08:37] LABS: ABSOLUTE BASOPHIL COUNT 0 /CUMM (0.0-0.2); ABSOLUTE EOSINOPHIL COUNT 0.1 /CUMM (0.0-0.7); ABSOLUTE GRANULOCYTE CT 33.3 /CUMM (1.4-6.5); ABSOLUTE LYMPH COUNT 2.2 /CUMM (1.2-3.4); ABSOLUTE MONOCYTE COUNT 1.4 /CUMM (0.10-0.60); BASOPHIL % 0 % (0.0-2.0); EOSINOPHIL % 0.2 % (0-5); GRANULOCYTE % 89.9 % (42.2-75.2); MEAN CORPUSCULAR HGB CONC 34.2 G/DL (33.0-37.0); MEAN CORPUSCULAR VOLUME 96.5 FL (81.0-99.0); MEAN PLATELET VOLUME 7.2 FL (7.4-10.4); PLATELET COUNT 439 /CUMM (130-400); RBC DISTRIBUTION WIDTH 14.3 % (11.5-14.5); RED BLOOD CELL CT 2.38 /CUMM (4.20-5.40)
--- NOTE | 2017-06-19 09:17 | PN- Housestaff ---
Subjective Follow-up For: Pneumonia and empyema AK I on CK D Tele-Events Since Last Visit: Normal sinus rhythm 69-88 with PVCs and PACs Subjective: Patient's states that her breathing is better today after she had repositioning of pigtail catheter. She has had very little drainage since the procedure. She still notes being in severe pain in the chest around the incision site. Review of Systems Constitutional: Reports: weakness. EENTM: Reports: no symptoms. Cardiovascular: Reports: chest pain. Respiratory: Reports: short of breath. Gastrointestinal: Reports: no symptoms. Genitourinary: Reports: no symptoms. Musculoskeletal: Reports: muscle pain. Skin: Reports: no symptoms. Neurological/Psychological: Reports: no symptoms. Hematologic/Endocrine: Reports: no symptoms. Immunologic/Allergic: Reports: no symptoms. Objective Last 24 Hrs of Vital Signs/I&O Vital Signs Date Time Temp Pulse Resp B/P B/P Pulse O2 O2 Flow FiO2 Mean Ox Delivery Rate 06/19 1425 97.5 72 24 130/80 95 Nasal 4.0L Cannula 06/19 1101 Nasal 4.5L Cannula 06/19 1046 92 Nasal 4.0L Cannula 06/19 0807 93 Nasal 4.0L Cannula 06/19 0655 98.2 70 22 144/54 92 Nasal Cannula 06/19 0000 Nasal 4.0L Cannula 06/18 2302 98.0 82 22 142/60 93 Nasal 4.0L Cannula 06/18 1945 92 Nasal 4.0L Cannula Intake & Output 06/19 1600 06/19 0800 06/19 0000 Intake Total 1200 622.6 750 Output Total 65 400 700 Balance 1135 222.6 50 Intake, IV 600 422.6 Intake, Oral 600 200 750 Number 1 2 Bowel Movements Output, Chest 65 Tube Drainage Output, Urine 400 700 Patient 248 lb Weight Weight Chair scale Measurement Method Physical Exam General Appearance: Alert, Oriented X3, Cooperative, Mild Distress Skin: No Rashes, No Breakdown, No Significant Lesion Skin Temp/Moisture Exam: Warm/Dry Sepsis Skin Exam (color): Normal for Ethnicity HEENT: Atraumatic, PERRLA, EOMI Neck: Supple, No JVD Cardiovascular: Regular Rate, Normal S1, Normal S2, No Murmurs Lungs: Clear to Auscultation, Normal Air Movement Abdomen: Normal Bowel Sounds, Soft Neurological: Normal Speech Extremities: No Clubbing, No Cyanosis, No Edema, Normal Pulses, No Tenderness/ Swelling Vascular: Normal Pulses, Pulses Symmetrical Current Medications: Current Medications Sig/Suleman Start time Last Medication Dose Route Stop Time Status Admin Acetaminophen 1,000 MG Q6P PRN 06/19 1130 AC 06/19 N/A 1 UNIT IV 1208 Acetaminophen 1,000 MG Q6P PRN 06/17 1615 DC N/A 1 UNIT IV 06/18 1614 Albuterol Sulfate 3 ML BID 06/15 2200 AC 06/19 INH 1045 Ampicillin Sodium/ 3,000 MG Q8H 06/17 1600 AC 06/19 Sulbactam Sodium IV 0827 Sodium Chloride 100 ML Aspirin Buffered 650 MG DAILY 06/13 1000 AC 06/19 PO 0827 Atorvastatin Calcium 40 MG 1700 06/15 1700 AC 06/18 PO 1819 Dextrose/Sodium 1,000 ML Q20H 06/18 1015 DC 06/18 Chloride IV 06/19 0614 1024 Docusate Sodium 100 MG BID 06/12 2359 06/19 PO 0827 Furosemide 40 MG DAILY 06/13 1000 AC 06/19 PO 0827 Heparin Sodium 4,509 UNIT ONCE ONE 06/19 1000 DC 06/19 (Porcine) IV 06/19 1001 1008 Heparin Sodium 25,000 UNIT Q24H 06/18 2130 AC 06/19 (Porcine) IV 1312 Sodium Chloride 500 ML Hydromorphone HCl 0.2 MG Q6-PRN PRN 06/16 1615 AC 06/19 IV 0606 Insulin Aspart 0 TIDAC/HS 06/18 1615 06/19 SC 1207 Insulin Aspart 0 Q4 06/18 1030 DC 06/18 SC 1353 Insulin Detemir 40 UNITS BID 06/18 2200 AC 06/19 SC 0827 Insulin Detemir 35 UNITS BID 06/17 2200 DC 06/18 SC 1012 Nitroglycerin 0.5 GM Q6P PRN 06/15 1830 AC TOP Pregabalin 75 MG BID 06/13 2200 AC 06/19 PO 0828 Tiotropium [place] 1 PUF DAILY 06/14 1000 AC 06/19 INH 0828 Last 24 Hrs of Lab/Drew Results Last 24 Hrs of Labs/Mics: Laboratory Tests 06/19/17 0633: Anion Gap 14, Estimated GFR 12 L, BUN/Creatinine Ratio 21.9, CBC w Diff MAN DIFF ORDERED, RBC 2.38 L, MCV 96.5, MCH 33.0 H, RDW 14.3, MPV 7.2 L, Gran % 89.9 H, Lymphocytes % 6.1 L, Monocytes % 3.8, Eosinophils % 0.2, Basophils % 0 , Absolute Granulocytes 33.3 H, Segmented Neutrophils 89 H, Band Neutrophils 1 , Absolute Lymphocytes 2.2, Lymphocytes 7 L, Monocytes 2, Absolute Monocytes 1.4 H, Eosinophils 1, Absolute Eosinophils 0.1, Absolute Basophils 0, Platelet Estimate VERIFIED BY SMEAR, Normocytic RBCs VERIFIED, Normochromic RBCs VERIFIED , PUBS MCHC 34.2 06/19/17 0630: APTT 53 H Assessment/Plan Assessment: Assessment 61-year-old woman, current smoker with a history of COPD, diabetes type 2 with diabetic neuropathy, left leg DVT status post IVC filter, chronic kidney disease , neuropathy and peripheral vascular disease, status post left BKA and amputations of the right first and third toes, last admitted to [facility] in September 2016 for cellulitis treated with cefazolin and discharged on Keflex, came for evaluation of chest pain of 4 days' duration associated with shortness of breath. Patient had drainage and Pleurx catheter drain placed on the for question of empyema. Fluid was found to not be grossly purulent. Fluid composition showed elevated WBCs, RBCs, pH 6.4, LDH of 3819. She is on Unasyn. She was found to have extremely elevated white blood cell count on admission of 44. Chest x-ray done after placement on 06/13 showed persistent moderate volume of her right pleural effusion. WBCs continue to be elevated. Patient had repositioning of pigtail catheter and VQ scan done under anesthesia yesterday. VQ scan returned with low to intermediate probability of PE so we have continued her on IV heparin. As per CT surgery the patient did have some bleeding and suggests discontinuing heparin. However as per cardiology the patient requires anticoagulation for potential PE. Patient has had minimal drainage after repositioning of pigtail catheter. Plan #1 Acute hypoxic respiratory failure likely secondary to community-acquired pneumonia/empyema: Patient presented with pleuritic chest pain, leukocytosis with bandemia and evidence of opacity in the right hemithorax. Blood cultures positive Haemophilus. She was found to have an empyema which was drained with Pleurx catheter. Fluid was found to be exudative in nature. Catheter drainage was 650 mL of serous sanguinous fluid from first pigtail catheter placement with minimal drainage after repositioning yesterday. * White count and continues to be elevated, afebrile. * TRC nebs [id number]. Oxygen as needed, keep saturations above 92%. Today on 4L. * CT surgery will defer lytic agent today and instead will flush with normal saline bedside. * Continue Unasyn * No growth pleural fluid * Repeat CT scan of the chest is warranted to determine if there remains a significant loculated effusion that may well require VATS for complete drainage and placement of formal chest tube * We tried to take patient for CT scan today but she refused unless she was sedated by anesthesia. The patient had eaten lunch so we will move CT scan and chest x-ray to tomorrow 06/20 at 8 AM and she will recover in the ICU as nobody will be available in the PACU. We will also do the chest x-ray at the same time. #2 Pleuritic chest pain with positive troponins: Patient had some new EKG changes. Chest pain was mostly pleuritic. Troponins trended down. As per cardiology, suspect that her small rise in cardiac enzymes is related to a PE. Clinically the patient has shortness of breath, pleuritic pain, low oxygen saturation consistent with empyema but also with PE. She was started on IV heparin in ED which is currently being continued. We are unable to get CTA in the setting of renal insufficiency. The patient has an IVC filter but of note this is not 100% reliable in the prevention of pulmonary embolism and of course does not help with an actual lower extremity thrombosis. * Troponins down * Heparin has been restarted post repositioning of pigtail catheter. * According to Dr. Lucas, if patient has precordial chest pain then can begin NTG paste 1/2 inch Q 6 hours. * According to Dr. Lucas, cardiology, myocardial ischemia cannot be 100% excluded and patient should have outpatient risk stratification with a stress test. #3 Urinary tract infection: Dirty urine, cultures positive for staph aureus * She has received an adequate course of Vancomycin for a lower urinary tract infection #4 Right knee pain: Patient notes a chronic moderate right knee pain. * Severe tricompartmental osteoarthritis seen on xray * Pain control with iv tylenol #5 Insulin-dependent diabetes mellitus: * Blood glucose 256 this morning * Resume patient's insulin dosing as she is no longer nothing by mouth * Follow endo recommendations #6 Elevated proBNP at 2590. No previous echo on record. * Attempt echo again when patient is more calm. * Lasix 40mg * Daily weight checks. #7 Acute kidney injury on chronic kidney disease * Patient has had persistent bicarb deficiency during this stay, has never had this problem before. * Monitory BEP * Avoid nephrotoxins * As for giving the patient bicarbonate for her metabolic acidosis, nephrology will defer this as this is more of a assisted issue. We will revisit the issue on patient discharge. Decreasing a chronic metabolic acidosis with sodium bicarbonate in someone with CKD stage IV is felt to slow the progression of the underlying renal disease as well as perhaps, at least theoretically, ameliorate the bone disease associated with chronic kidney disease. #8 Hyperkalemia * Stop kdur * Potassium has normalized. -Pain Control with Dilaudid and IV Tylenol -Diabetic diet, nothing by mouth at midnight -DVT prophylaxis with heparin and Alps on right leg -Full code Problem List: 1. Empyema 2. Pneumonia 3. Leukocytosis 4. AMEYA (acute kidney injury) 5. Diabetes mellitus type 2 Pain Ratin Pain Location: Right-sided chest and back Pain Goal: Pain 4 or less Pain Plan: IV Tylenol and Dilaudid Tomorrow's Labs & Rationales: CBC and BEP and PTT
--- NOTE | 2017-06-19 10:32 | PN- Nephrology ---
Assessment/Plan Assessment: 1. Chronic kidney disease. Likely diabetic nephropathy. 2. Pneumonia with empyema. She reports significant relief with placement of the new catheter. She is able to breathe better. I am told 1500 mL were removed. 3. Diabetes mellitus 4. Peripheral vascular disease. Status post left BKA 5. Neuropathy 6. Metabolic acidosis. 7. Incisional pain she is complaining bitterly about pain at the insertion site of her chest tube as well as at the site of insertion with regards the old chest tube. I suggested that she should discuss this with Dr. Hays and the primary team. Suggestion: 1. Avoid nephrotoxins 2. Continue with strict I's and O's and daily weights Subjective Subjective: Patient is complaining bitterly about pain at the 2 insertion sites. She asked that I should order something for her for pain. I suggested that she should discuss this with the primary care team. Otherwise she had great relief from the thoracentesis done yesterday with new chest tube insertion. Objective Vital Signs and I&Os Vital Signs Date Time Temp Pulse Resp B/P B/P Pulse O2 O2 Flow FiO2 Mean Ox Delivery Rate 06/19 1101 Nasal 4.5L Cannula 06/19 1046 92 Nasal 4.0L Cannula 06/19 0807 93 Nasal 4.0L Cannula 06/19 0655 98.2 70 22 144/54 92 Nasal Cannula 06/19 0000 Nasal 4.0L Cannula 06/18 2302 98.0 82 22 142/60 93 Nasal 4.0L Cannula 06/18 1945 92 Nasal 4.0L Cannula 06/18 1431 97.8 90 20 148/70 95 Nasal 4.5L Cannula 06/18 1157 Nasal 4.5L Cannula Intake & Output 06/19 1600 06/19 0400 06/18 1600 06/18 0400 06/17 1600 06/17 0400 Intake Total 622.6 750 1026.8 200 1334.0 1125 Output Total 400 700 493 046 7018 810 Balance 222.6 50 326.8 -100 209.0 315 Intake, IV 422.6 786.8 534.0 575 Intake, Oral 200 750 240 200 800 550 Number 1 2 2 1 1 Bowel Movements Output, Chest 0 75 60 Tube Drainage Output, Urine 400 700 532 152 7184 750 Patient 248 lb 250 lb Weight Weight Chair scale Measurement Method Physical Exam: General Appearance: well developed/nourished, alert, awake, anxious, no distress , obese Head: atraumatic, normal appearance Eyes: Bilateral: PERRL, EOMI, pale conjunctivae. Neck: normal inspection, supple, full range of motion Respiratory: decreased breath sounds Cardiovascular: regular rate/rhythm Gastrointestinal: normal bowel sounds, soft, non-tender, no organomegaly Back: normal inspection Extremities: no edema, status post left BKA Neurologic/Psych: no gross motor/sensory deficits, Cranial Nerves: normal hearing, normal speech Skin: no rash Current Medications: Current Medications Sig/Suleman Start time Last Medication Dose Route Stop Time Status Admin Acetaminophen 1,000 MG Q6P PRN 06/17 1615 DC N/A 1 UNIT IV 06/18 1614 Albuterol Sulfate 3 ML BID 06/15 2200 AC 06/18 INH 1033 Ampicillin Sodium/ 3,000 MG Q8H 06/17 1600 AC 06/19 Sulbactam Sodium IV 0827 Sodium Chloride 100 ML Aspirin Buffered 650 MG DAILY 06/13 1000 AC 06/19 PO 0827 Atorvastatin Calcium 40 MG 1700 06/15 1700 AC 06/18 PO 1819 Dextrose/Sodium 1,000 ML Q20H 06/18 1015 DC 06/18 Chloride IV 06/19 0614 1024 Docusate Sodium 100 MG BID 06/12 2359 AC 06/19 PO 0827 Fentanyl Citrate 100 MCG .STK-MED ONE 06/18 1358 DC IM 06/18 1359 Furosemide 40 MG DAILY 06/13 1000 AC 06/19 PO 0827 Heparin Sodium 4,509 UNIT ONCE ONE 06/19 1000 DC 06/19 (Porcine) IV 06/19 1001 1008 Heparin Sodium 25,000 UNIT Q24H 06/18 2130 AC 06/18 (Porcine) IV 2230 Sodium Chloride 500 ML Hydromorphone HCl 0.2 MG Q6-PRN PRN 06/16 1615 AC 06/19 IV 0606 Insulin Aspart 0 TIDAC/HS 06/18 1615 06/19 SC 0826 Insulin Aspart 0 Q4 06/18 1030 DC 06/18 SC 1353 Insulin Detemir 40 UNITS BID 06/18 2200 AC 06/19 SC 0827 Insulin Detemir 35 UNITS BID 06/17 2200 DC 06/18 SC 1012 Ketamine HCl 50 MG .STK-MED ONE 06/18 1358 DC IM 06/18 1359 Midazolam HCl 2 MG .STK-MED ONE 06/18 1358 DC IM 06/18 1359 Nitroglycerin 0.5 GM Q6P PRN 06/15 1830 AC TOP Pregabalin 75 MG BID 06/13 2200 AC 06/19 PO 0828 Tiotropium [place] 1 PUF DAILY 06/14 1000 AC 06/19 INH 0828 Results Pertinent Lab Results: Laboratory Tests 06/19 06/19 0633 0630 Chemistry Sodium (137 - 145 mmol/L) 138 Potassium (3.5 - 5.1 mmol/L) 4.3 Chloride (98 - 107 mmol/L) 106 Carbon Dioxide (22 - 30 mmol/L) 18 L Anion Gap (5 - 16) 14 BUN (7 - 17 mg/dL) 81 H Creatinine (0.5 - 1.0 mg/dL) 3.7 H Estimated GFR (>60 ml/min) 12 L BUN/Creatinine Ratio (7 - 25 %) 21.9 Coagulation APTT (25 - 37 SEC) 53 H Hematology CBC w Diff MAN DIFF ORDERED WBC (4.8 - 10.8 /CUMM) 37.0 *H RBC (4.20 - 5.40 /CUMM) 2.38 L Hgb (12.0 - 16.0 G/DL) 7.9 L Hct (37 - 47 %) 23.0 L MCV (81.0 - 99.0 FL) 96.5 MCH (27.0 - 31.0 PG) 33.0 H RDW (11.5 - 14.5 %) 14.3 Plt Count (130 - 400 /CUMM) 439 H MPV (7.4 - 10.4 FL) 7.2 L Gran % (42.2 - 75.2 %) 89.9 H Lymphocytes % (20.5 - 51.1 %) 6.1 L Monocytes % (1.7 - 9.3 %) 3.8 Eosinophils % (0 - 5 %) 0.2 Basophils % (0.0 - 2.0 %) 0 Absolute Granulocytes (1.4 - 6.5 /CUMM) 33.3 H Segmented Neutrophils (42.2 - 75.2 %) 89 H Band Neutrophils (0.0 - 5.0 %) 1 Absolute Lymphocytes (1.2 - 3.4 /CUMM) 2.2 Lymphocytes (20.5 - 51.1 %) 7 L Monocytes (1.7 - 9.3 %) 2 Absolute Monocytes (0.10 - 0.60 /CUMM) 1.4 H Eosinophils (0 - 5.0 %) 1 Absolute Eosinophils (0.0 - 0.7 /CUMM) 0.1 Absolute Basophils (0.0 - 0.2 /CUMM) 0 Platelet Estimate (ADEQUATE) VERIFIED BY SMEAR Normocytic RBCs VERIFIED Normochromic RBCs VERIFIED PUBS MCHC (33.0 - 37.0 G/DL) 34.2 06/18 06/17 0708 2200 Chemistry Sodium (137 - 145 mmol/L) 137 Potassium (3.5 - 5.1 mmol/L) 5.4 H Chloride (98 - 107 mmol/L) 106 Carbon Dioxide (22 - 30 mmol/L) 18 L Anion Gap (5 - 16) 13 BUN (7 - 17 mg/dL) 85 H Creatinine (0.5 - 1.0 mg/dL) 3.6 H Estimated GFR (>60 ml/min) 13 L BUN/Creatinine Ratio (7 - 25 %) 23.6 Magnesium (1.6 - 2.3 mg/dL) 2.3 Total Bilirubin (0.2 - 1.3 mg/dL) 0.4 Direct Bilirubin (< 0.4 mg/dL) 0.4 AST (14 - 36 U/L) 24 ALT (9 - 52 U/L) 40 Alkaline Phosphatase (<127 U/L) 167 H Total Protein (6.3 - 8.2 g/dL) 6.1 L Albumin (3.5 - 5.0 g/dL) 2.5 L Coagulation APTT (25 - 37 SEC) 102 *H 96 H Hematology CBC w Diff MAN DIFF ORDERED WBC (4.8 - 10.8 /CUMM) 44.1 *H RBC (4.20 - 5.40 /CUMM) 2.94 L Hgb (12.0 - 16.0 G/DL) 9.5 L Hct (37 - 47 %) 28.4 L MCV (81.0 - 99.0 FL) 96.9 MCH (27.0 - 31.0 PG) 32.5 H RDW (11.5 - 14.5 %) 14.7 H Plt Count (130 - 400 /CUMM) 501 H MPV (7.4 - 10.4 FL) 7.3 L Gran % (42.2 - 75.2 %) 94.0 H Lymphocytes % (20.5 - 51.1 %) 4.3 L Monocytes % (1.7 - 9.3 %) 1.5 L Eosinophils % (0 - 5 %) 0.1 Basophils % (0.0 - 2.0 %) 0.1 Absolute Granulocytes (1.4 - 6.5 /CUMM) 41.5 H Segmented Neutrophils (42.2 - 75.2 %) 85 H Band Neutrophils (0.0 - 5.0 %) 5 Absolute Lymphocytes (1.2 - 3.4 /CUMM) 1.9 Lymphocytes (20.5 - 51.1 %) 8 L Absolute Monocytes (0.10 - 0.60 /CUMM) 0.7 H Absolute Eosinophils (0.0 - 0.7 /CUMM) 0 Absolute Basophils (0.0 - 0.2 /CUMM) 0.1 Metamyelocytes (0.0 - 1.0 %) 1 Myelocytes (0 - 0 %) 1 H Platelet Estimate (ADEQUATE) INCREASED Anisocytosis 1+ PUBS MCHC (33.0 - 37.0 G/DL) 33.5 06/17 06/16 06/16 0616 2319 1342 Chemistry Sodium (137 - 145 mmol/L) 138 Potassium (3.5 - 5.1 mmol/L) 5.3 H Chloride (98 - 107 mmol/L) 108 H Carbon Dioxide (22 - 30 mmol/L) 15 L Anion Gap (5 - 16) 15 BUN (7 - 17 mg/dL) 74 H Creatinine (0.5 - 1.0 mg/dL) 3.1 H Estimated GFR (>60 ml/min) 15 L BUN/Creatinine Ratio (7 - 25 %) 23.9 Coagulation APTT (25 - 37 SEC) 61 H 70 H 57 H Hematology CBC w Diff MAN DIFF ORDERED WBC (4.8 - 10.8 /CUMM) 46.3 *H RBC (4.20 - 5.40 /CUMM) 3.65 L Hgb (12.0 - 16.0 G/DL) 11.9 L Hct (37 - 47 %) 35.4 L MCV (81.0 - 99.0 FL) 97.0 MCH (27.0 - 31.0 PG) 32.5 H RDW (11.5 - 14.5 %) 14.5 Plt Count (130 - 400 /CUMM) 547 H MPV (7.4 - 10.4 FL) 7.2 L Gran % (42.2 - 75.2 %) 96.2 H Lymphocytes % (20.5 - 51.1 %) 3.0 L Monocytes % (1.7 - 9.3 %) 0.5 L Eosinophils % (0 - 5 %) 0.2 Basophils % (0.0 - 2.0 %) 0.1 Absolute Granulocytes (1.4 - 6.5 /CUMM) 44.5 H Segmented Neutrophils (42.2 - 75.2 %) 87 H Band Neutrophils (0.0 - 5.0 %) 5 Absolute Lymphocytes (1.2 - 3.4 /CUMM) 1.4 Lymphocytes (20.5 - 51.1 %) 4 L Monocytes (1.7 - 9.3 %) 2 Absolute Monocytes (0.10 - 0.60 /CUMM) 0.2 Absolute Eosinophils (0.0 - 0.7 /CUMM) 0.1 Absolute Basophils (0.0 - 0.2 /CUMM) 0 Metamyelocytes (0.0 - 1.0 %) 1 Myelocytes (0 - 0 %) 1 H Platelet Estimate (ADEQUATE) INCREASED Anisocytosis 1+ PUBS MCHC (33.0 - 37.0 G/DL) 33.5
--- NOTE | 2017-06-19 10:49 | PN- Att Addend ---
Attending Addendum Attending Brief Note Patient in bed, had her chest tube repositioning, very little drainage this morning. Vital signs stable no fever white count down to 37,000 is still elevated. No other changes on physical. Will follow the specialists recommendations Intake & Output 06/19 1600 06/19 0400 06/18 1600 06/18 0400 06/17 1600 06/17 0400 Intake Total 622.6 750 1026.8 200 1334.0 1125 Output Total 400 700 734 432 2414 810 Balance 222.6 50 326.8 -100 209.0 315 Intake, IV 422.6 786.8 534.0 575 Intake, Oral 200 750 240 200 800 550 Number 1 2 2 1 1 Bowel Movements Output, Chest 0 75 60 Tube Drainage Output, Urine 400 700 351 904 0313 750 Patient 248 lb 250 lb Weight Weight Chair scale Measurement Method Current Medications Sig/Suleman Start time Last Medication Dose Route Stop Time Status Admin Acetaminophen 1,000 MG Q6P PRN 06/17 161 DC N/A 1 UNIT IV 06/18 161 Albuterol Sulfate 3 ML BID 06/15 2200 AC 06/19 INH 1045 Ampicillin Sodium/ 3,000 MG Q8H 06/17 1600 AC 06/19 Sulbactam Sodium IV 0827 Sodium Chloride 100 ML Aspirin Buffered 650 MG DAILY 06/13 1000 AC 06/19 PO 0827 Atorvastatin Calcium 40 MG 1700 06/15 1700 AC 06/18 PO 1819 Dextrose/Sodium 1,000 ML Q20H 06/18 1015 DC 06/18 Chloride IV 06/19 0614 1024 Docusate Sodium 100 MG BID 06/12 2359 AC 06/19 PO 0827 Fentanyl Citrate 100 MCG .STK-MED ONE 06/18 1358 DC IM 06/18 1359 Furosemide 40 MG DAILY 06/13 1000 AC 06/19 PO 0827 Heparin Sodium 4,509 UNIT ONCE ONE 06/19 1000 DC 06/19 (Porcine) IV 06/19 1001 1008 Heparin Sodium 25,000 UNIT Q24H 06/18 2130 AC 06/18 (Porcine) IV 2230 Sodium Chloride 500 ML Hydromorphone HCl 0.2 MG Q6-PRN PRN 06/16 1615 AC 06/19 IV 0606 Insulin Aspart 0 TIDAC/HS 06/18 1615 AC 06/19 SC 0826 Insulin Aspart 0 Q4 06/18 1030 DC 06/18 SC 1353 Insulin Detemir 40 UNITS BID 06/18 2200 06/19 SC 0827 Insulin Detemir 35 UNITS BID 06/17 220 WI 06/18 SC 1012 Ketamine HCl 50 MG .STK-MED ONE 06/18 1358 DC IM 06/18 1359 Midazolam HCl 2 MG .STK-MED ONE 06/18 1358 DC IM 06/18 1359 Nitroglycerin 0.5 GM Q6P PRN 06/15 1830 TOP Pregabalin 75 MG BID 06/13 220 AC 06/19 PO 0828 Tiotropium [place] 1 PUF DAILY 06/14 1000 AC 06/19 INH 0828 Laboratory Tests 06/19/17 0633: Anion Gap 14, Estimated GFR 12 L, BUN/Creatinine Ratio 21.9, CBC w Diff MAN DIFF ORDERED, RBC 2.38 L, MCV 96.5, MCH 33.0 H, RDW 14.3, MPV 7.2 L, Gran % 89.9 H, Lymphocytes % 6.1 L, Monocytes % 3.8, Eosinophils % 0.2, Basophils % 0 , Absolute Granulocytes 33.3 H, Segmented Neutrophils 89 H, Band Neutrophils 1 , Absolute Lymphocytes 2.2, Lymphocytes 7 L, Monocytes 2, Absolute Monocytes 1.4 H, Eosinophils 1, Absolute Eosinophils 0.1, Absolute Basophils 0, Platelet Estimate VERIFIED BY SMEAR, Normocytic RBCs VERIFIED, Normochromic RBCs VERIFIED , PUBS MCHC 34.2 06/19/17 0630: APTT 53 H 06/18/17 0708: Anion Gap 13, Estimated GFR 13 L, BUN/Creatinine Ratio 23.6, Magnesium 2.3, Total Bilirubin 0.4, Direct Bilirubin 0.4, AST 24, ALT 40, Alkaline Phosphatase 167 H, Total Protein 6.1 L, Albumin 2.5 L, APTT 102 *H, CBC w Diff MAN DIFF ORDERED, RBC 2.94 L, MCV 96.9, MCH 32.5 H, RDW 14.7 H, MPV 7.3 L, Gran % 94.0 H, Lymphocytes % 4.3 L, Monocytes % 1.5 L, Eosinophils % 0.1, Basophils % 0.1, Absolute Granulocytes 41.5 H, Segmented Neutrophils 85 H, Band Neutrophils 5, Absolute Lymphocytes 1.9, Lymphocytes 8 L, Absolute Monocytes 0.7 H, Absolute Eosinophils 0, Absolute Basophils 0.1, Metamyelocytes 1, Myelocytes 1 H, Platelet Estimate INCREASED, Anisocytosis 1+, PUBS MCHC 33.5 06/17/17 2200: APTT 96 H 06/17/17 0616: Anion Gap 15, Estimated GFR 15 L, BUN/Creatinine Ratio 23.9, APTT 61 H, CBC w Diff MAN DIFF ORDERED, RBC 3.65 L, MCV 97.0, MCH 32.5 H, RDW 14.5, MPV 7.2 L, Gran % 96.2 H, Lymphocytes % 3.0 L, Monocytes % 0.5 L, Eosinophils % 0.2, Basophils % 0.1, Absolute Granulocytes 44.5 H, Segmented Neutrophils 87 H, Band Neutrophils 5, Absolute Lymphocytes 1.4, Lymphocytes 4 L, Monocytes 2, Absolute Monocytes 0.2, Absolute Eosinophils 0.1, Absolute Basophils 0, Metamyelocytes 1, Myelocytes 1 H, Platelet Estimate INCREASED, Anisocytosis 1+, PUBS MCHC 33.5 06/16/17 2319: APTT 70 H 06/16/17 1342: APTT 57 H Vital Signs Date Time Temp Pulse Resp B/P B/P Pulse O2 O2 Flow FiO2 Mean Ox Delivery Rate 06/19 1046 92 Nasal 4.0L Cannula 06/19 0807 93 Nasal 4.0L Cannula 06/19 0655 98.2 70 22 144/54 92 Nasal Cannula 06/19 0000 Nasal 4.0L Cannula 06/18 2302 98.0 82 22 142/60 93 Nasal 4.0L Cannula 06/18 1945 92 Nasal 4.0L Cannula 06/18 1431 97.8 90 20 148/70 95 Nasal 4.5L Cannula 06/18 1157 Nasal 4.5L Cannula
--- NOTE | 2017-06-19 11:39 | PN- Thoracic Surgery ---
See Addendum Subjective Subjective: Pain is better today, no acute shortness of breath or change in respiratory status Objective Vital Signs and I&Os Vital Signs Date Time Temp Pulse Resp B/P B/P Pulse O2 O2 Flow FiO2 Mean Ox Delivery Rate 06/19 1101 Nasal 4.5L Cannula 06/19 1046 92 Nasal 4.0L Cannula 06/19 0807 93 Nasal 4.0L Cannula 06/19 0655 98.2 70 22 144/54 92 Nasal Cannula 06/19 0000 Nasal 4.0L Cannula 06/18 2302 98.0 82 22 142/60 93 Nasal 4.0L Cannula 06/18 1945 92 Nasal 4.0L Cannula 06/18 1431 97.8 90 20 148/70 95 Nasal 4.5L Cannula 06/18 1157 Nasal 4.5L Cannula Intake & Output 06/19 1600 06/19 0800 06/19 0000 06/18 1600 06/18 0800 06/18 0000 Intake Total 622.6 750 395.6 631.2 200 Output Total 400 700 300 400 300 Balance 222.6 50 95.6 231.2 -100 Intake, IV 422.6 395.6 391.2 Intake, Oral 200 750 240 200 Number 1 2 1 1 Bowel Movements Output, Chest 0 Tube Drainage Output, Urine 400 700 300 400 300 Patient 248 lb 250 lb Weight Weight Chair scale Measurement Method Physical Exam: Well-developed well-nourished female, obese, sitting on stretcher, in no acute distress No respiratory distress Right lung sounds diminished Right-sided catheter in place posterior chest wall draining serous sanguinous discharge to chest tube, small amount. Assessment/Plan Assessment/Plan Right-sided empyema with pleural effusion status post replacement of IR placed catheter for drainage purposes. This was flushed at the bedside with normal saline by myself without difficulty. Per Dr. Rebolledo, would not give lytics at this time, would ideally like to be off heparin however cardiology feels it is necessary due to possibility of pulmonary embolism. Patient may require surgical intervention if she does not continue to improve, will repeat CT scan and chest x-ray in a.m.
[2017-06-19 14:25] VITALS: BP 130/80
--- NOTE | 2017-06-19 16:06 | PN- Infect Dx ---
Subjective Subjective: Afebrile. She feels overall improved but still notes pain in the right chest. She is reluctant to go downstairs for a CT of the chest. Objective Last 24 Hrs of Vital Signs/I&O Vital Signs Date Time Temp Pulse Resp B/P B/P Pulse O2 O2 Flow FiO2 Mean Ox Delivery Rate 06/19 1425 97.5 72 24 130/80 95 Nasal 4.0L Cannula 06/19 1101 Nasal 4.5L Cannula 06/19 1046 92 Nasal 4.0L Cannula 06/19 0807 93 Nasal 4.0L Cannula 06/19 0655 98.2 70 22 144/54 92 Nasal Cannula 06/19 0000 Nasal 4.0L Cannula 06/18 2302 98.0 82 22 142/60 93 Nasal 4.0L Cannula 06/18 1945 92 Nasal 4.0L Cannula Intake & Output 06/19 1600 06/19 0800 06/19 0000 Intake Total 1200 622.6 750 Output Total 65 400 700 Balance 1135 222.6 50 Intake, IV 600 422.6 Intake, Oral 600 200 750 Number 1 2 Bowel Movements Output, Chest 65 Tube Drainage Output, Urine 400 700 Patient 248 lb Weight Weight Chair scale Measurement Method Physical Exam Other Physical Findings: She appears comfortable in no acute distress Lungs decreased breath sounds at the right base; chest tube in place with 1400 mL output yesterday and 460 mL overnight Heart regular rhythm with no murmur Extremities venous stasis changes to the right lower extremity Results Last 24 Hours of Lab Results: Laboratory Tests 06/19 06/19 0633 0630 Chemistry Sodium (137 - 145 mmol/L) 138 Potassium (3.5 - 5.1 mmol/L) 4.3 Chloride (98 - 107 mmol/L) 106 Carbon Dioxide (22 - 30 mmol/L) 18 L Anion Gap (5 - 16) 14 BUN (7 - 17 mg/dL) 81 H Creatinine (0.5 - 1.0 mg/dL) 3.7 H Estimated GFR (>60 ml/min) 12 L BUN/Creatinine Ratio (7 - 25 %) 21.9 Coagulation APTT (25 - 37 SEC) 53 H Hematology CBC w Diff MAN DIFF ORDERED WBC (4.8 - 10.8 /CUMM) 37.0 *H RBC (4.20 - 5.40 /CUMM) 2.38 L Hgb (12.0 - 16.0 G/DL) 7.9 L Hct (37 - 47 %) 23.0 L MCV (81.0 - 99.0 FL) 96.5 MCH (27.0 - 31.0 PG) 33.0 H RDW (11.5 - 14.5 %) 14.3 Plt Count (130 - 400 /CUMM) 439 H MPV (7.4 - 10.4 FL) 7.2 L Gran % (42.2 - 75.2 %) 89.9 H Lymphocytes % (20.5 - 51.1 %) 6.1 L Monocytes % (1.7 - 9.3 %) 3.8 Eosinophils % (0 - 5 %) 0.2 Basophils % (0.0 - 2.0 %) 0 Absolute Granulocytes (1.4 - 6.5 /CUMM) 33.3 H Segmented Neutrophils (42.2 - 75.2 %) 89 H Band Neutrophils (0.0 - 5.0 %) 1 Absolute Lymphocytes (1.2 - 3.4 /CUMM) 2.2 Lymphocytes (20.5 - 51.1 %) 7 L Monocytes (1.7 - 9.3 %) 2 Absolute Monocytes (0.10 - 0.60 /CUMM) 1.4 H Eosinophils (0 - 5.0 %) 1 Absolute Eosinophils (0.0 - 0.7 /CUMM) 0.1 Absolute Basophils (0.0 - 0.2 /CUMM) 0 Platelet Estimate (ADEQUATE) VERIFIED BY SMEAR Normocytic RBCs VERIFIED Normochromic RBCs VERIFIED PUBS MCHC (33.0 - 37.0 G/DL) 34.2 Last 24 Hours of Drew Results: Pleural fluid culture June 13 pending, with possible gram negative rods isolated Assessment/Plan Impression: Improved status post replacement of the right sided chest tube yesterday for a loculated effusion/empyema secondary to Haemophilus influenzae, isolated from the initial blood cultures and, likely, from the pleural fluid. She remains afebrile on Unasyn, with her white blood cell count decreased today, though still elevated, and am still concerned about the possibility of undrained/ loculated empyema. Suggestion: 1. Repeat CT of the chest 2. Further management with regard to lytics and possible surgical intervention per Thoracic surgery 3. Follow-up final pleural fluid culture 4. Continue Unasyn An Mensah MD will be covering until June 23
--- NOTE | 2017-06-19 17:28 | PN- Cardiology ---
Subjective Subjective: * Patient complains of a right chest discomfort. She also has mild shortness of breath. * This patient has nuclear scan and clinical evidence consistent with pulmonary emboli * creatinine improved to 3.7 with potassium of 4.3 * WBC is elevated to 37 * Decreased H/H on heparin Objective Vital Signs and I&Os Vital Signs Date Time Temp Pulse Resp B/P B/P Pulse O2 O2 Flow FiO2 Mean Ox Delivery Rate 06/19 1425 97.5 72 24 130/80 95 Nasal 4.0L Cannula 06/19 1101 Nasal 4.5L Cannula 06/19 1046 92 Nasal 4.0L Cannula 06/19 0807 93 Nasal 4.0L Cannula 06/19 0655 98.2 70 22 144/54 92 Nasal Cannula 06/19 0000 Nasal 4.0L Cannula 06/18 2302 98.0 82 22 142/60 93 Nasal 4.0L Cannula 06/18 1945 92 Nasal 4.0L Cannula Intake & Output 06/19 1600 06/19 0800 06/19 0000 06/18 1600 06/18 0800 06/18 0000 Intake Total 1200 622.6 750 395.6 631.2 200 Output Total 65 400 700 300 400 300 Balance 1135 222.6 50 95.6 231.2 -100 Intake, IV 600 422.6 395.6 391.2 Intake, Oral 600 200 750 240 200 Number 1 2 1 1 Bowel Movements Output, Chest 65 0 Tube Drainage Output, Urine 400 700 300 400 300 Patient 248 lb 250 lb Weight Weight Chair scale Measurement Method Physical Exam: General: WD/obese female in NAD; alert and oriented x 3 Heart: RRR w/o murmur Lungs: no crackles or wheezing, chest tube on right Extremities: no edema on right, Left AKA Assessment/Plan Assessment/Plan * This obese and inactive female has evidence of lower extremity thrombosis without findings of a true DVT. I suspect that her small rise in cardiac enzymes is related to a PE. A V/Q scan is consistent with this diagnosis. Her low O2 saturation, shortness of breath and pleuritic pain are consistent with this diagnosis although her diagnosis of empyema will also give similar symptoms. She does have an IVC filter which helps but is not 100% reliable for preventing a PE and it does not help with lower extremity thrombosis. Continue IV heparin as tolerated. * In consideration of the patient's multiple risk factors for coronary artery disease myocardial ischemia related to increased myocardial demand cannot be 100 % excluded and the patient should have risk stratification with a stress test at some point in time. In the meantime, continue IV heparin and aspirin. Continue a statin. If precordial chest pain then begin NTG paste 1/2 inch Q 6 hours. * Obtain an echocardiogram. Continue telemetry? Yes
[2017-06-19 17:56] LABS: PTT 102 SEC (25-37)
[2017-06-19 23:30] VITALS: BP 160/64
[2017-06-20 01:26] LABS: PTT 52 SEC (25-37)
[2017-06-20 06:56] VITALS: BP 158/62
--- NOTE | 2017-06-20 07:59 | ECHOCARDIOGRAM REPORT ---
MEKHI VICENTE Age: 61 : 1955 Gender: F Exam Date: 06/19/2017 09:57 Exam Location: [address] Ht (in): 66 Wt (lb): 250 BSA: 2.35 BP: 148 / 70 Ordering Physician: Charles Joiner MD Referring Physician: Charles Joiner MD Technologist: Joselito Garcia [facility] Room Number: 188-1 Indications: HEART FAILURE Rhythm: Sinus Technical Quality: technically limited FINDINGS Left Ventricle Normal left ventricular size, wall thickness and systolic function with no obvious regional wall motion abnormalities. Normal left ventricular diastolic filling pattern for age. The ejection fraction is visually estimated at 70%. Right Ventricle The right ventricle is normal in size and function. Right Atrium The right atrium is normal in size. Left Atrium The left atrium is normal in size. The interatrial septum is intact. Mitral Valve The mitral valve is normal in structure and function. There is no mitral regurgitation. Aortic Valve Structurally normal aortic valve without significant sclerosis or stenosis. There is no aortic regurgitation. Tricuspid Valve The tricuspid valve is normal in structure and function. There is trace tricuspid regurgitation. Pulmonary artery systolic pressure is mildly elevated to 36mmHg. Pulmonic Valve Structurally normal pulmonic valve. There is no pulmonic regurgitation. Pericardium Normal pericardium without effusion. No pleural effusion. Great Vessels Normal aortic root dimension. The aortic arch and great vessels are not well seen. CONCLUSIONS 1. Normal EF of 70%. 2. Trace tricuspid regurgitation. 3. Mildly elevated pulmonary pressures. Carlos Lucas M.D. (Electronically Signed) Final Date: 20 June 2017 07:59 MEASUREMENTS (Male / Female) Normal Values 2D ECHO LV Diastolic Diameter PLAX 5.5 cm 4.2 - 5.9 / 3.9 - 5.3 cm LV Systolic Diameter PLAX 3.1 cm 2.1 - 4.0 cm LV Fractional Shortening PLAX 43.6 % 25 - 46 % LV Ejection Fraction 2D Teich 74.3 % IVS Diastolic Thickness 1.1 cm LVPW Diastolic Thickness 1.1 cm LV Relative Wall Thickness 0.4 RV Internal Dim ED PLAX 3.1 cm 1.9 - 3.8 cm LVOT Diameter 1.7 cm Aortic Root Diameter 2.5 cm LA Systolic Diameter LX 3.7 cm 3.0 - 4.0 / 2.7 - 3.8 cm Ascending Aorta Diameter 2.9 cm DOPPLER AV Peak Velocity 255.0 cm/s AV Peak Gradient 26.0 mmHg AV Mean Velocity 164.0 cm/s AV Mean Gradient 13.0 mmHg AV Velocity Time Integral 46.1 cm LVOT Peak Velocity 138.0 cm/s LVOT Peak Gradient 7.6 mmHg LVOT Mean Velocity 81.1 cm/s LVOT Mean Gradient 3.0 mmHg LVOT Velocity Time Integral 27.3 cm LVOT Stroke Volume 62.0 cm AV Area Cont Eq vti 1.3 cm AV Area Cont Eq pk 1.2 cm MV Peak Velocity 134.0 cm/s MV Peak Gradient 7.2 mmHg MV Mean Velocity 72.4 cm/s MV Mean Gradient 3.0 mmHg Mitral E Point Velocity 108.0 cm/s Mitral A Point Velocity 112.0 cm/s Mitral E to A Ratio 1.0 MV PHT Velocity 133.0 cm/s MV Deceleration [place] 516.0 cm/s MV Pressure Half Time 77.3 ms MV Area PHT 2.8 cm MV Deceleration Time 349.0 ms TR Peak Velocity 280.0 cm/s TR Peak Gradient 31.4 mmHg Right Atrial Pressure 5.0 mmHg Pulmonary Artery Systolic Pressu 36.4 mmHg Right Ventricular Systolic Press 36.4 mmHg PV Peak Velocity 178.0 cm/s PV Peak Gradient 12.7 mmHg PV Mean Velocity 112.0 cm/s PV Mean Gradient 6.0 mmHg PV Velocity Time Integral 38.8 cm LV E' Lateral Velocity 8.5 cm/s Mitral E to LV E' Lateral Ratio 12.7 LV E' Septal Velocity 4.4 cm/s Mitral E to LV E' Septal Ratio 24.6
[2017-06-20 08:15] LABS: ABSOLUTE BASOPHIL COUNT 0 /CUMM (0.0-0.2); BASOPHIL % 0.1 % (0.0-2.0); EOSINOPHIL % 0.8 % (0-5); RED BLOOD CELL CT 2.39 /CUMM (4.20-5.40)
[2017-06-20 08:27] LABS: ABSOLUTE EOSINOPHIL COUNT 0.3 /CUMM (0.0-0.7); ABSOLUTE GRANULOCYTE CT 28.3 /CUMM (1.4-6.5); ABSOLUTE LYMPH COUNT 2.5 /CUMM (1.2-3.4); ABSOLUTE MONOCYTE COUNT 1.1 /CUMM (0.10-0.60); GRANULOCYTE % 87.9 % (42.2-75.2); HEMATOCRIT 23.2 % (37-47); MEAN CORPUSCULAR HGB 32.7 PG (27.0-31.0); MEAN CORPUSCULAR HGB CONC 33.7 G/DL (33.0-37.0); MEAN CORPUSCULAR VOLUME 97.1 FL (81.0-99.0); MEAN PLATELET VOLUME 7.3 FL (7.4-10.4); PLATELET COUNT 464 /CUMM (130-400); RBC DISTRIBUTION WIDTH 14.4 % (11.5-14.5)
[2017-06-20 08:32] LABS: WHITE BLOOD CELL COUNT 32.2 /CUMM (4.8-10.8)
--- NOTE | 2017-06-20 09:37 | PN- Housestaff ---
Subjective Follow-up For: Empyema AMEYA on CKD Complaints: pain scale (0-10) (at pigtail insertion site) Tele-Events Since Last Visit: Sinus rhythm, heart rate ranging from 69-76 Subjective: Patient followed by me today. She was up, sitting by the side of her bed, complaining of pain in her pigtail insertion site in the chest, appeared a bit anxious about her pain. Overnight, she has been in sinus rhythm, chest tube drainage totaled 65 mL yesterday, vital signs have remained normal except slightly increased blood pressure 158/62, while pulse still on 73. Blood glucose doesn't seem to be much under control, but her morning fasting blood sugar was 92. IV Heparin still running. Chest wall has large bruise over right side. Anticipating CAT scan of the chest under anesthesia later today. Review of Systems Constitutional: Reports: see HPI. Denies: chills, diaphoresis, fever, malaise, weakness. Cardiovascular: Reports: no symptoms. Respiratory: Reports: see HPI, sputum production (not new). Denies: cough, hemoptysis, short of breath (less now), stridor, wheezing. Gastrointestinal: Reports: no symptoms. Genitourinary: Reports: no symptoms. Skin: Reports: rash (big bruise over Rt lat chest). Neurological/Psychological: Reports: no symptoms. Hematologic/Endocrine: Reports: see HPI, bruising. Objective Last 24 Hrs of Vital Signs/I&O Vital Signs Date Time Temp Pulse Resp B/P B/P Pulse O2 O2 Flow FiO2 Mean Ox Delivery Rate 06/20 0656 97.2 73 22 158/62 94 Nasal Cannula 06/20 0000 96 Nasal 4.0L Cannula 06/19 2330 98.6 72 20 160/64 93 Nasal Cannula 06/19 2023 92 Nasal 4.0L Cannula 06/19 1600 93 Nasal 4.0L Cannula 06/19 1425 97.5 72 24 130/80 95 Nasal 4.0L Cannula 06/19 1101 Nasal 4.5L Cannula 06/19 1046 92 Nasal 4.0L Cannula Intake & Output 06/20 1600 06/20 0800 06/20 0000 Intake Total 475 350 Output Total 400 Balance 475 -50 Intake, IV 445 Intake, Oral 30 350 Output, Urine 400 Physical Exam General Appearance: Alert, Oriented X3, Cooperative, Mild Distress (anxious) Skin: significant bruise over right lateral chest wall, around the pigtail cath placement, non fluctuant Skin Temp/Moisture Exam: Warm/Dry Sepsis Skin Exam (color): Normal for Ethnicity HEENT: Atraumatic, PERRLA, EOMI, dry mucosa Neck: Supple, No JVD Cardiovascular: Regular Rate, Normal S1, Normal S2, No Murmurs Lungs: right side decreased breath sound, left side air entry normal Abdomen: Normal Bowel Sounds, Soft, No Tenderness Neurological: grossly intact Extremities: pedal edema present Vascular: Normal Pulses, Pulses Symmetrical Sepsis Peripheral Pulse Location: Radial Sepsis Peripheral Pulse Exam: Normal Sepsis Cap Refill Exam: <2 Sec Current Medications: Current Medications Sig/Suleman Start time Last Medication Dose Route Stop Time Status Admin Acetaminophen 1,000 MG Q6P PRN 06/19 1130 AC 06/20 N/A 1 UNIT IV 0446 Albuterol Sulfate 3 ML BID 06/15 2200 AC 06/19 INH 2019 Ampicillin Sodium/ 3,000 MG Q8H 06/17 1600 AC 06/20 Sulbactam Sodium IV 0754 Sodium Chloride 100 ML Aspirin Buffered 650 MG DAILY 06/13 1000 AC 06/19 PO 0827 Atorvastatin Calcium 40 MG 1700 06/15 1700 AC 06/19 PO 1639 Docusate Sodium 100 MG BID 06/12 2359 AC 06/19 PO 0827 Furosemide 40 MG DAILY 06/13 1000 AC 06/19 PO 0827 Heparin Sodium 25,000 UNIT .STK-MED ONE 06/19 1310 DC (Porcine) IV 06/19 1311 Heparin Sodium 4,509 UNIT ONCE ONE 06/19 1000 DC 06/19 (Porcine) IV 06/19 1001 1008 Heparin Sodium 25,000 UNIT Q24H 06/18 2130 DC 06/20 (Porcine) IV 0330 Sodium Chloride 500 ML Hydromorphone HCl 0.2 MG Q6-PRN PRN 06/16 1615 AC 06/20 IV 0033 Insulin Aspart 0 TIDAC/HS 06/18 1615 AC 06/19 SC 1707 Insulin Detemir 40 UNITS BID 06/18 2200 AC 06/19 SC 220 Nitroglycerin 0.5 GM Q6P PRN 06/15 1830 TOP Oxycodone HCl 5 MG ONCE ONE 06/19 2015 DC 06/19 PO 06/19 Pregabalin 75 MG BID 06/13 2200 AC 06/19 PO 2204 Tiotropium [place] 1 PUF DAILY 06/14 1000 AC 06/19 INH 0828 Last 24 Hrs of Lab/Drew Results Last 24 Hrs of Labs/Mics: Laboratory Tests 06/20/17 0645: Anion Gap 13, Estimated GFR 13 L, BUN/Creatinine Ratio 22.6, CBC w Diff MAN DIFF ORDERED, RBC 2.39 L, MCV 97.1, MCH 32.7 H, RDW 14.4, MPV 7.3 L, Gran % 87.9 H, Lymphocytes % 7.8 L, Monocytes % 3.4, Eosinophils % 0.8, Basophils % 0.1, Absolute Granulocytes 28.3 H, Segmented Neutrophils 81 H, Band Neutrophils 6 H, Absolute Lymphocytes 2.5, Lymphocytes 6 L, Monocytes 4, Absolute Monocytes 1.1 H, Absolute Eosinophils 0.3, Absolute Basophils 0, Metamyelocytes 3 H, Nucleated RBCs 1 H, Platelet Estimate INCREASED, Hypochromic-Microcytic 2+, Anisocytosis 1+, PUBS MCHC 33.7 06/20/17 0030: APTT 52 H 06/19/17 1609: APTT 102 *H Orders Stool Guaiac Testing: positive today, but not grossly bleeding/ hemodynamically stable Assessment/Plan Assessment: Assessment 61-year-old woman, current smoker with a history of COPD, diabetes type 2 with diabetic neuropathy, left leg DVT status post IVC filter, chronic kidney disease , neuropathy and peripheral vascular disease, status post 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 in September 2016 for cellulitis treated with cefazolin and discharged on Keflex, came for evaluation of chest pain of 4 days' duration associated with shortness of breath. Patient had drainage and Pleurx catheter drain placed on the for question of empyema. Fluid was found to be slightly blood tinged serous grossly. Fluid composition showed elevated WBCs, RBCs, pH 6.4, LDH of 3819. She is on Unasyn. She was found to have extremely elevated white blood cell count on admission of 44. Chest x-ray done after placement on 06/13 showed persistent moderate volume of her right pleural effusion. WBCs continue to be elevated. Patient had repositioning of pigtail catheter and VQ scan done under anesthesia which returned with low to intermediate probability of PE so she was continued on IV heparin. As per cardiothoracic surgery, the patient might be bleeding and suggests discontinuing heparin. However as per cardiology the patient requires anticoagulation for potential PE. Patient has had minimal drainage after repositioning of pigtail catheter. Plan #1 Acute hypoxic respiratory failure likely secondary to community-acquired pneumonia, COMPLICATED BY EMPYEMA: She was found to have an empyema which was drained with Pleurx catheter. Fluid was found to be exudative in nature. Catheter drainage was ?650 mL of serous sanguinous fluid from first pigtail catheter placement with minimal drainage after repositioning. Repeat CT of the chest was done under anesthesia today, postoperatively stable, clearly shows complex empyema, compressing most of the lung tissue on the right side. This needs surgical debridement, and surgery has been notified about the new changes as well. As per cardiothoracic surgery, the small bleeding during the catheter insertion in the chest, might theoritically be the cause of large bruise that's visible on the right lateral chest wall currently, thus heparin was held off this AM after discussing with the attending/operating room registered nurse Dr. Peter. - Continue oxygen, nebulizations, Unasyn - Surgical intervention to be planned as per cardiothoracic surgery consultation. - She is undergoing US Doppler of b/l lower ext as a follow up. If she has DVT, she will need anticoagulant-Heparin without bolus, which for now is on hold. Reasons being extensive bruising and hypoxia, less chances of PE. #2 Pleuritic chest pain with positive troponins: Likely due to demand ischemia, with AMEYA also contributing to it. * According to Dr. Lucas, if patient has precordial chest pain then can begin NTG paste 1/2 inch Q 6 hours. * According to Dr. Lucas, cardiology, myocardial ischemia cannot be 100% excluded and patient should later have outpatient risk stratification with a stress test. #3 Urinary tract infection: Dirty urine, cultures positive for staph aureus * She has received an adequate course of Vancomycin for a lower urinary tract infection. Currently on Unasyn. Will continue. #4 Right knee pain: Patient notes a chronic moderate right knee pain. * Severe tricompartmental osteoarthritis seen on xray * Pain control with iv tylenol, and Dilaudid. #5 Insulin-dependent diabetes mellitus, Uncontrolled * Fasting blood sugar this morning was in 90s, after nothing by mouth since midnight, otherwise was NOT under control. * Endocrinology on board, was suggested keeping her on this same insulin regimen. #6 Elevated proBNP at 2590. No previous echo on record. * Attempt echo again when patient is more calm. * Continue Lasix 40mg PO daily * Daily I/O and weight checks. #7 Acute kidney injury on chronic kidney disease * Patient has had persistent bicarb deficiency during this stay, has never had this problem before. * Monitory BEP * Avoid nephrotoxins #8 Hyperkalemia * Stopped kdur * Potassium has normalized. -Pain Control with Dilaudid and IV Tylenol -Diabetic diet -DVT prophylaxis with heparin and Alps on right leg -Full code Problem List: 1. Empyema 2. Elevated troponin 3. CHRONIC RENAL FAILURE Pain Ratin Pain Location: right side of chest Pain Goal: Pain 4 or less Pain Plan: dilaudid, tylenol Tomorrow's Labs & Rationales: CBC, BEP DVT/Prophylaxis: pharmacological
--- NOTE | 2017-06-20 11:26 | CT SCAN REPORT ---
EXAMINATION: CT CHEST WITHOUT CONTRAST CLINICAL INFORMATION: A 61-year-old female status post right-sided pleural drainage catheter placement for large pleural effusion. For follow up. COMPARISON: CT of the chest done on 06/18/2017. TECHNIQUE: Multidetector volumetric CT imaging of the chest was done. Axial MIP volume rendering provided. Sagittal and coronal reformatted images were obtained. DLP: 1164.89 mGy-cm FINDINGS: INTERMODAL CUSTOMER SERVICE: A moderate-size right-sided pleural effusion is present, appears decreased since 06/18/2017. LUNGS: The right upper lobe is partially aerated, appears improved since 06/18/2017. There is complete collapse consolidation of right middle and right lower lobe noted, similar to prior study. The left lung appears well aerated except for minimal dependent atelectatic changes at left lung base. The tracheobronchial tree appears patent, unchanged. MEDIASTINUM: Atherosclerotic disease is noted within the aorta and its branches including coronary arterial calcifications. There are no pathologically enlarged mediastinal, hilar lymphadenopathy seen. PLEURA: A moderate-size right-sided pleural effusion is present. The size of the effusion appears to have decreased since 06/18/2017. There are multiple new air pockets identified within the right pleural cavity, appear to be loculated, may represent changes secondary to recent intervention. AXILLA: No lymphadenopathy. UPPER ABDOMEN: Inferior vena cava filter is present, appears in good position. The gallbladder is surgically absent. OSSEOUS STRUCTURES: Degenerative spondylosis-related changes are noted at mid thoracic spine. IMPRESSION: 1. The size of the right-sided pleural effusion has decreased since 06/18/2017. Residual moderate-sized pleural effusion is still present with multiple new air pockets possibly related to recent intervention. 2. No other significant change.
--- NOTE | 2017-06-20 12:37 | PN- Diabetes ---
Assessment/Plan Assessment: This 61-year-old woman with a known history of type 2 diabetes mellitus associated with morbid obesity and with severe complications including a left below the knee amputation diabetic neuropathy and chronic kidney diseases stage 4 presented to the emergency room with respiratory failure. She has been found to have an empyema in her right chest and chest tube was inserted. She feels much improved. She is on Lantus 40 units twice a day, Novolog coverage before meals and Novolog coverage at bedtime. Her FSGs were 283, 260, 169 and 92. Plan: continue the current insulin regimen for now; monitor FSGs; will follow. Subjective Subjective: She complains of having pain and requested pain medication. Objective Last 24 Hrs of Vital Signs/I&O Vital Signs Date Time Temp Pulse Resp B/P B/P Pulse O2 O2 Flow FiO2 Mean Ox Delivery Rate 06/20 0656 97.2 73 22 158/62 94 Nasal Cannula 06/20 0000 96 Nasal 4.0L Cannula 06/19 2330 98.6 72 20 160/64 93 Nasal Cannula 06/19 2023 92 Nasal 4.0L Cannula 06/19 1600 93 Nasal 4.0L Cannula 06/19 1425 97.5 72 24 130/80 95 Nasal 4.0L Cannula Intake & Output 06/20 1600 06/20 0800 06/20 0000 Intake Total 475 350 Output Total 400 Balance 475 -50 Intake, IV 445 Intake, Oral 30 350 Output, Urine 400 Findings Pertinent Lab/Drew Results: Laboratory Tests 06/20 06/20 06/19 0645 0030 1609 Chemistry Sodium (137 - 145 mmol/L) 140 Potassium (3.5 - 5.1 mmol/L) 4.3 Chloride (98 - 107 mmol/L) 108 H Carbon Dioxide (22 - 30 mmol/L) 19 L Anion Gap (5 - 16) 13 BUN (7 - 17 mg/dL) 79 H Creatinine (0.5 - 1.0 mg/dL) 3.5 H Estimated GFR (>60 ml/min) 13 L BUN/Creatinine Ratio (7 - 25 %) 22.6 Coagulation APTT (25 - 37 SEC) 52 H 102 *H Hematology CBC w Diff MAN DIFF ORDERED WBC (4.8 - 10.8 /CUMM) 32.2 *H RBC (4.20 - 5.40 /CUMM) 2.39 L Hgb (12.0 - 16.0 G/DL) 7.8 L Hct (37 - 47 %) 23.2 L MCV (81.0 - 99.0 FL) 97.1 MCH (27.0 - 31.0 PG) 32.7 H RDW (11.5 - 14.5 %) 14.4 Plt Count (130 - 400 /CUMM) 464 H MPV (7.4 - 10.4 FL) 7.3 L Gran % (42.2 - 75.2 %) 87.9 H Lymphocytes % (20.5 - 51.1 %) 7.8 L Monocytes % (1.7 - 9.3 %) 3.4 Eosinophils % (0 - 5 %) 0.8 Basophils % (0.0 - 2.0 %) 0.1 Absolute Granulocytes (1.4 - 6.5 /CUMM) 28.3 H Segmented Neutrophils (42.2 - 75.2 %) 81 H Band Neutrophils (0.0 - 5.0 %) 6 H Absolute Lymphocytes (1.2 - 3.4 /CUMM) 2.5 Lymphocytes (20.5 - 51.1 %) 6 L Monocytes (1.7 - 9.3 %) 4 Absolute Monocytes (0.10 - 0.60 /CUMM) 1.1 H Absolute Eosinophils (0.0 - 0.7 /CUMM) 0.3 Absolute Basophils (0.0 - 0.2 /CUMM) 0 Metamyelocytes (0.0 - 1.0 %) 3 H Nucleated RBCs (0.0 - 0.0 /100WBC) 1 H Platelet Estimate (ADEQUATE) INCREASED Hypochromic-Microcytic 2+ Anisocytosis 1+ PUBS MCHC (33.0 - 37.0 G/DL) 33.7
--- NOTE | 2017-06-20 12:40 | PN- Infect Dx ---
Subjective Subjective: C/o R side chest pain; CT + sincere blood. No fever. Anxious. Review of Systems Comments: 12 points reviewed as noted. Objective Last 24 Hrs of Vital Signs/I&O Vital Signs Date Time Temp Pulse Resp B/P B/P Pulse O2 O2 Flow FiO2 Mean Ox Delivery Rate 06/20 0656 97.2 73 22 158/62 94 Nasal Cannula 06/20 0000 96 Nasal 4.0L Cannula 06/19 2330 98.6 72 20 160/64 93 Nasal Cannula 06/19 2023 92 Nasal 4.0L Cannula 06/19 1600 93 Nasal 4.0L Cannula 06/19 1425 97.5 72 24 130/80 95 Nasal 4.0L Cannula Intake & Output 06/20 1600 06/20 0800 06/20 0000 Intake Total 475 350 Output Total 400 Balance 475 -50 Intake, IV 445 Intake, Oral 30 350 Output, Urine 400 Physical Exam Other Physical Findings: General Appearance Alert, Oriented X3, Cooperative, Elevated BMI Skin Pale HEENT Atraumatic, Mucous Membr. moist/pink Neck Supple, No CYNTHIA Cardiovascular S1, S2 present, 2/6 PRATIBHA LUSB Lungs b/l decreased breath sounds both bases; R side chest tube w/ hemorragic drainage Abdomen Normal Bowel Sounds, Soft, No Tenderness, Protuberant Extremities left leg non pitting edema with chronic skin changes, left stump examined, no skin breakdown Results Last 24 Hours of Lab Results: Laboratory Tests 06/20 06/20 06/19 0645 0030 1609 Chemistry Sodium (137 - 145 mmol/L) 140 Potassium (3.5 - 5.1 mmol/L) 4.3 Chloride (98 - 107 mmol/L) 108 H Carbon Dioxide (22 - 30 mmol/L) 19 L Anion Gap (5 - 16) 13 BUN (7 - 17 mg/dL) 79 H Creatinine (0.5 - 1.0 mg/dL) 3.5 H Estimated GFR (>60 ml/min) 13 L BUN/Creatinine Ratio (7 - 25 %) 22.6 Coagulation APTT (25 - 37 SEC) 52 H 102 *H Hematology CBC w Diff MAN DIFF ORDERED WBC (4.8 - 10.8 /CUMM) 32.2 *H RBC (4.20 - 5.40 /CUMM) 2.39 L Hgb (12.0 - 16.0 G/DL) 7.8 L Hct (37 - 47 %) 23.2 L MCV (81.0 - 99.0 FL) 97.1 MCH (27.0 - 31.0 PG) 32.7 H RDW (11.5 - 14.5 %) 14.4 Plt Count (130 - 400 /CUMM) 464 H MPV (7.4 - 10.4 FL) 7.3 L Gran % (42.2 - 75.2 %) 87.9 H Lymphocytes % (20.5 - 51.1 %) 7.8 L Monocytes % (1.7 - 9.3 %) 3.4 Eosinophils % (0 - 5 %) 0.8 Basophils % (0.0 - 2.0 %) 0.1 Absolute Granulocytes (1.4 - 6.5 /CUMM) 28.3 H Segmented Neutrophils (42.2 - 75.2 %) 81 H Band Neutrophils (0.0 - 5.0 %) 6 H Absolute Lymphocytes (1.2 - 3.4 /CUMM) 2.5 Lymphocytes (20.5 - 51.1 %) 6 L Monocytes (1.7 - 9.3 %) 4 Absolute Monocytes (0.10 - 0.60 /CUMM) 1.1 H Absolute Eosinophils (0.0 - 0.7 /CUMM) 0.3 Absolute Basophils (0.0 - 0.2 /CUMM) 0 Metamyelocytes (0.0 - 1.0 %) 3 H Nucleated RBCs (0.0 - 0.0 /100WBC) 1 H Platelet Estimate (ADEQUATE) INCREASED Hypochromic-Microcytic 2+ Anisocytosis 1+ PUBS MCHC (33.0 - 37.0 G/DL) 33.7 Last 24 Hours of Drew Results: SPEC #: [id number] MICHAEL: 06/12/17 STATUS: COMP RECD: 06/12/[address]: Nicko No SOURCE: BLOOD ENTR: 06/12/[address]: Wallace Alvarez MD SPDESC: 2ND/VENOUS ORDERED: BLOOD CULTURE Procedure Result > BLOOD CULTURE REPORT Final 06/15/17 GRAM STAIN SUGGESTIVE OF: TINY GRAM NEGATIVE RODS Called to/Readback by JOSE LUIS CALL TO DR. ALVAREZ [id number] WAITING FOR RETURN CALL DR ALVAREZ CALLED BACK AT 1511. by LAB.[email or web address] 06/13/17 1446 CULTURE: HAEMOPHILUS INFLUENZAE BETA LACTAMASE POSITIVE: Implies Ampicillin Resistance Recent Imaging Studies: CT chest 06/20 IMPRESSION: 1. The size of the right-sided pleural effusion has decreased since 06/18/2017. Residual moderate-sized pleural effusion is still present with multiple new air pockets possibly related to recent intervention. 2. No other significant change. DICTATED BY: Lynne Rodriguez MD DATE/TIME DICTATED:06/20/171028 [employer] VEHICLE LICENSE CLERK:FARZANA DATE/TIME TRANSCRIBED:06/20/171028 Assessment/Plan Impression: 61-year-old woman with diabetes, peripheral vascular disease and neuropathy, status post left BKA over 8 years prior to admission, with a Charcot right foot, status post amputations of the first and third toes, chronic kidney disease, COPD, and a history of left lower extremity DVT, status post IVC filter, last hospitalized 8 months prior to admission with a cellulitis of the left BKA stump , admitted on June 12 with a several week history of a cough, occasionally productive of yellow sputum, undocumented fevers with chills, and more recent onset of right sided chest pain and increasing shortness of breath. S/p chest tube placenment 06/18 for a loculated effusion/empyema secondary to Haemophilus influenzae, isolated from the initial blood cultures and, likely, from the pleural fluid. She remains afebrile on Unasyn, with her white blood cell count decreased today, though still severe leukocytosis, possibility due to undrained/loculated empyema. Developed hemothorax today; will undergo CT chest per pulmonary; and anticoag held. Suggestion: 1. F/U repeat CT of the chest 2. Further management per Thoracic surgery 3. Follow-up final pleural fluid culture. 4. Continue Unasyn started 06/17. 5. Trend CBC/BMP. UA/UC if urinary sx.
--- NOTE | 2017-06-20 14:23 | PN- Pulmonary ---
Subjective HPI/Critical Care Issues: C/o R side chest pain; CT + sincere blood. No fever. Anxious. Objective Current Medications: Current Medications Sig/Suleman Start time Last Medication Dose Route Stop Time Status Admin Acetaminophen 1,000 MG Q6P PRN 06/19 1130 06/20 N/A 1 UNIT IV 0446 Albuterol Sulfate 3 ML BID 06/15 2200 AC 06/19 INH 2019 Ampicillin Sodium/ 3,000 MG Q8H 06/17 1600 AC 06/20 Sulbactam Sodium IV 0754 Sodium Chloride 100 ML Aspirin Buffered 650 MG DAILY 06/13 1000 AC 06/19 PO 0827 Atorvastatin Calcium 40 MG 1700 06/15 1700 AC 06/19 PO 1639 Docusate Sodium 100 MG BID 06/12 2359 AC 06/19 PO 0827 Furosemide 40 MG DAILY 06/13 1000 AC 06/19 PO 0827 Heparin Sodium 25,000 UNIT Q24H 06/18 2130 DC 06/20 (Porcine) IV 0330 Sodium Chloride 500 ML Hydromorphone HCl 0.2 MG Q6-PRN PRN 06/16 1615 06/20 IV 0033 Insulin Aspart 0 TIDAC/HS 06/18 1615 06/19 SC 1707 Insulin Detemir 40 UNITS BID 06/18 2200 AC 06/19 SC 2204 Nitroglycerin 0.5 GM Q6P PRN 06/15 1830 TOP Oxycodone HCl 5 MG ONCE ONE 06/19 2015 DC 06/19 PO 06/19 Pregabalin 75 MG BID 06/13 2200 06/19 PO 2204 Tiotropium [place] 1 PUF DAILY 06/14 1000 AC 06/19 INH 0828 Vital Signs & I&O Last 24 Hrs of Vitals and I&O: Vital Signs Date Time Temp Pulse Resp B/P B/P Pulse O2 O2 Flow FiO2 Mean Ox Delivery Rate 06/20 0656 97.2 73 22 158/62 94 Nasal Cannula 06/20 0000 96 Nasal 4.0L Cannula 06/19 2330 98.6 72 20 160/64 93 Nasal Cannula 06/19 2023 92 Nasal 4.0L Cannula 06/19 1600 93 Nasal 4.0L Cannula 06/19 1425 97.5 72 24 130/80 95 Nasal 4.0L Cannula Intake & Output 06/20 1600 06/20 0800 06/20 0000 Intake Total 475 350 Output Total 400 Balance 475 -50 Intake, IV 445 Intake, Oral 30 350 Output, Urine 400 Impression/Plan Impression/Plan Impression/Plan: IMPRESSION: 1. The size of the right-sided pleural effusion has decreased since 06/18/2017. Residual moderate-sized pleural effusion is still present with multiple new air pockets possibly related to recent intervention. 2. No other significant change. DICTATED BY: Lynne Rodriguez MD General Appearance Alert, Oriented X3, Cooperative, Elevated BMI Skin Pale HEENT Atraumatic, Mucous Membr. moist/pink Neck Supple, No CYNTHIA Cardiovascular S1, S2 present, 2/6 PRATIBHA LUSB Lungs b/l decreased breath sounds both bases; R side chest tube w/ hemorragic drainage Abdomen Normal Bowel Sounds, Soft, No Tenderness, Protuberant Extremities left leg non pitting edema with chronic skin changes, left stump examined, no skin breakdown 61-year-old woman with diabetes, peripheral vascular disease and neuropathy, status post left BKA over 8 years prior to admission, with a Charcot right foot, status post amputations of the first and third toes, chronic kidney disease, COPD, and a history of left lower extremity DVT, status post IVC filter, last hospitalized 8 months prior to admission with a cellulitis of the left BKA stump , admitted on June 12 with a several week history of a cough, occasionally productive of yellow sputum, undocumented fevers with chills, and more recent onset of right sided chest pain and increasing shortness of breath. S/p chest tube placenment 06/18 for a loculated effusion/empyema secondary to Haemophilus influenzae, isolated from the initial blood cultures and, likely, from the pleural fluid. She remains afebrile on Unasyn, with her white blood cell count decreased today, though still severe leukocytosis, possibility due to undrained/loculated empyema. ISSUES Empyema with complicated effusion Sig pna with trapped lung Prob hemothorax but less likely PRevious cellulitis Sup thrombophebitis DM with multiple complications including pvc, neuropathy Recurrent cellulitis Unlikely sig pe IHD Poor performance status REC COnt chest tube and abx Discussed Dr Rebolledo and pt would need surgical rx with decortication and this is being considered in the next few days Lower ext dopplers Hold heparin systemic rx cont meds for IHD Follow endo eval Will follow
[2017-06-20 14:42] VITALS: BP 154/62
--- NOTE | 2017-06-20 18:43 | ULTRASOUND REPORT ---
EXAMINATION: US TRIPLEX OF LOWER EXTREMITIES, BILATERAL CLINICAL INFORMATION: Acute hypoxia. COMPARISON: Right-sided DVT study done on 06/12/2017. TECHNIQUE: Color-flow triplex imaging with spectral analysis and compression Doppler were performed on the lower extremities. FINDINGS: RIGHT LOWER EXTREMITY: Respiratory variation, normal compression and augmented flow are noted throughout the right lower extremity. The visualized common femoral vein, superficial femoral vein, profunda femoral vein, popliteal vein and midcalf peroneal and posterior tibial venous segments show no evidence of deep venous thrombosis. Incidental note is made of persistent stable thrombus within the greater saphenous vein as was detected on the prior study dated 06/12/2017. There is no Magallanes's cyst. LEFT LOWER EXTREMITY: Occlusive thrombus is identified within the left superficial femoral vein. There is no thrombus identified within the left common femoral as well as popliteal veins. The calf veins could not be evaluated since patient has a below knee amputation. IMPRESSION: 1. Persistent stable superficial venous thrombus within the right greater saphenous vein, unchanged since 06/12/2017. 2. Occlusive thrombus within the left superficial femoral vein (part of the deep system) with patent left common femoral and popliteal veins. This critical result was discussed with Dr. Hernandez at 6:32 PM on 06/20/2017 and it was ascertained that the content and urgency of the report was understood at the time of direct communication.
[2017-06-20 23:12] VITALS: BP 162/68
[2017-06-21 05:02] LABS: ABSOLUTE BASOPHIL COUNT 0.4 /CUMM (0.0-0.2); ABSOLUTE EOSINOPHIL COUNT 0.3 /CUMM (0.0-0.7); ABSOLUTE GRANULOCYTE CT 23.6 /CUMM (1.4-6.5); ABSOLUTE LYMPH COUNT 1.5 /CUMM (1.2-3.4); ABSOLUTE MONOCYTE COUNT 0.7 /CUMM (0.10-0.60); BASOPHIL % 1.4 % (0.0-2.0); GRANULOCYTE % 89.3 % (42.2-75.2); HEMATOCRIT 21.8 % (37-47); MEAN CORPUSCULAR HGB 32.7 PG (27.0-31.0); MEAN CORPUSCULAR VOLUME 96.3 FL (81.0-99.0); PLATELET COUNT 410 /CUMM (130-400); RBC DISTRIBUTION WIDTH 14.6 % (11.5-14.5); RED BLOOD CELL CT 2.26 /CUMM (4.20-5.40)
[2017-06-21 05:12] LABS: PTT 37 SEC (25-37)
[2017-06-21 05:38] LABS: WHITE BLOOD CELL COUNT 26.4 /CUMM (4.8-10.8)
[2017-06-21 06:46] VITALS: BP 154/68
--- NOTE | 2017-06-21 08:24 | PN- Housestaff ---
Subjective Follow-up For: Empyema AMEYA on CKD Tele-Events Since Last Visit: NSR with heart rate 76-90. No overnight events. Subjective: patient was seen and examined at bedside. She reports having significant pain on her right flank. It improves with dilaudidd but creeps back again. She would like to be on a pain regimen so to keep it under control as she has significant distress from it. Review of Systems Constitutional: Reports: no symptoms. Objective Last 24 Hrs of Vital Signs/I&O Vital Signs Date Time Temp Pulse Resp B/P B/P Pulse O2 O2 Flow FiO2 Mean Ox Delivery Rate 06/21 1030 93 Nasal 4.0L Cannula 06/21 0800 93 Nasal 4.0L Cannula 06/21 0646 97.6 83 20 154/68 93 Nasal Cannula 06/21 0000 Nasal 4.0L Cannula 06/20 2312 98.9 82 16 162/68 94 Nasal 4.0L Cannula 06/20 2050 94 Nasal 4.0L Cannula 06/20 1442 97.4 78 20 154/62 94 Intake & Output 06/21 1600 06/21 0800 06/21 0000 Intake Total 360 360 Output Total 750 450 Balance -390 -90 Intake, Oral 360 360 Number 2 Bowel Movements Output, Urine 750 450 Physical Exam General Appearance: Alert, Oriented X3, Cooperative, Mild Distress Skin: ecchymosis on right flank Skin Temp/Moisture Exam: Warm/Dry Sepsis Skin Exam (color): Normal for Ethnicity HEENT: Atraumatic Cardiovascular: Normal S1, Normal S2, No Murmurs Lungs: Clear to Auscultation, Normal Air Movement Abdomen: Soft, No Tenderness Neurological: Normal Speech Extremities: No Edema Assessment/Plan Assessment: Assessment 61-year-old woman, current smoker with a history of COPD, diabetes type 2 with diabetic neuropathy, left leg DVT status post IVC filter, chronic kidney disease , neuropathy and peripheral vascular disease, 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 Patient had drainage and Pleurx catheter drain placed on the for question of empyema. Fluid was found to be slightly blood tinged serous grossly. Fluid composition showed elevated WBCs, RBCs, pH 6.4, LDH of 3819. She is on Unasyn. She was found to have extremely elevated white blood cell count on admission of 44. Chest x-ray done after placement on 06/13 showed persistent moderate volume of her right pleural effusion. WBCs continue to be elevated. Patient had repositioning of pigtail catheter and VQ scan done under anesthesia which returned with low to intermediate probability of PE so she was continued on IV heparin. As per cardiothoracic surgery, the patient might be bleeding and suggests discontinuing heparin. However as per cardiology the patient requires anticoagulation for potential PE. Patient has had minimal drainage after repositioning of pigtail catheter. Plan #1 Acute hypoxic respiratory failure likely secondary to community-acquired pneumonia, COMPLICATED BY EMPYEMA: She was found to have an empyema which was drained with Pleurx catheter. Fluid was found to be exudative in nature. Catheter drainage was ?650 mL of serous sanguinous fluid from first pigtail catheter placement with minimal drainage after repositioning. Repeat CT of the chest was done under anesthesia today, postoperatively stable, clearly shows complex empyema, compressing most of the lung tissue on the right side. This needs surgical debridement, and surgery has been notified about the new changes as well. As per cardiothoracic surgery, the small bleeding during the catheter insertion in the chest, might theoritically be the cause of large bruise that's visible on the right lateral chest wall currently, thus heparin was held off this AM after discussing with the attending/canvas goods maker Dr. Peter. - Continue oxygen, nebulizations, Unasyn 3g q12. - Surgical intervention to be planned as per cardiothoracic surgery consultation. - She had a doppler U/S today which showed Occlusive thrombus within the left superficial femoral vein and Persistent stable superficial venous thrombus within the right greater saphenous vein, unchanged since 06/12/2017. - She was started on IV heparin - She will require a IVC prior to surgery on Thursday. The filter placement has been scheduled with IR for Thursday. She will need to be NPO on Thursday night. #2 Pleuritic chest pain with positive troponins: Likely due to demand ischemia, with AMEYA also contributing to it. * According to Dr. Lucas, if patient has precordial chest pain then can begin NTG paste 1/2 inch Q 6 hours. * According to Dr. Lucas, cardiology, myocardial ischemia cannot be 100% excluded and patient should later have outpatient risk stratification with a stress test. #3 Urinary tract infection: Dirty urine, cultures positive for staph aureus * She has received an adequate course of Vancomycin for a lower urinary tract infection. Currently on Unasyn. Will continue. #4 Right knee pain: Patient notes a chronic moderate right knee pain. * Severe tricompartmental osteoarthritis seen on xray * Pain control with iv tylenol, and Dilaudid. #5 Insulin-dependent diabetes mellitus, Uncontrolled * Blood sugars have ranged from 183-200 today. * Endocrinology on board, will continue her on the same insulin regimen. #6 Elevated proBNP at 2590. No previous echo on record. * Attempt echo again when patient is more calm. * Continue Lasix 40mg PO daily * Daily I/O and weight checks. #7 Acute kidney injury on chronic kidney disease * Patient has had persistent bicarb deficiency during this stay, has never had this problem before. * Monitory BEP * Avoid nephrotoxins #8 Hyperkalemia * Stopped kdur * Potassium has normalized. -Pain Control with Dilaudid and IV Tylenol -Diabetic diet -DVT prophylaxis with heparin and Alps on right leg -Full code Problem List: 1. Empyema Pain Ratin Pain Location: none Pain Goal: Remain pain free Pain Plan: none Tomorrow's Labs & Rationales: CBC, BEP
--- NOTE | 2017-06-21 10:44 | PN- Diabetes ---
Assessment/Plan Assessment: This 61-year-old woman with a known history of type 2 diabetes mellitus associated with morbid obesity and with severe complications including a left below the knee amputation diabetic neuropathy and chronic kidney diseases stage 4 presented to the emergency room with respiratory failure. She has been found to have an empyema in her right chest and chest tube was inserted. She feels much improved. She is on Lantus 40 units twice a day, Novolog coverage before meals and Novolog coverage at bedtime. Her FSGs were 92, 84, 227, 259 and 183. Plan: continue the current insulin regimen for now; monitor FSGs. will follow. Subjective Subjective: She feels better today. Objective Last 24 Hrs of Vital Signs/I&O Vital Signs Date Time Temp Pulse Resp B/P B/P Pulse O2 O2 Flow FiO2 Mean Ox Delivery Rate 06/21 0646 97.6 83 20 154/68 93 Nasal Cannula 06/21 0000 Nasal 4.0L Cannula 06/20 2312 98.9 82 16 162/68 94 Nasal 4.0L Cannula 06/20 2050 94 Nasal 4.0L Cannula 06/20 1442 97.4 78 20 154/62 94 Intake & Output 06/21 1600 06/21 0800 06/21 0000 Intake Total 360 360 Output Total 750 450 Balance -390 -90 Intake, Oral 360 360 Number 2 Bowel Movements Output, Urine 750 450 Findings Pertinent Lab/Drew Results: Laboratory Tests 06/21 0430 Chemistry Sodium (137 - 145 mmol/L) 136 L Potassium (3.5 - 5.1 mmol/L) 4.3 Chloride (98 - 107 mmol/L) 107 Carbon Dioxide (22 - 30 mmol/L) 18 L Anion Gap (5 - 16) 10 BUN (7 - 17 mg/dL) 64 H Creatinine (0.5 - 1.0 mg/dL) 3.2 H Estimated GFR (>60 ml/min) 15 L BUN/Creatinine Ratio (7 - 25 %) 20.0 Coagulation APTT (25 - 37 SEC) 37 Hematology CBC w Diff NO MAN DIFF REQ WBC (4.8 - 10.8 /CUMM) 26.4 H RBC (4.20 - 5.40 /CUMM) 2.26 L Hgb (12.0 - 16.0 G/DL) 7.4 *L Hct (37 - 47 %) 21.8 L MCV (81.0 - 99.0 FL) 96.3 MCH (27.0 - 31.0 PG) 32.7 H RDW (11.5 - 14.5 %) 14.6 H Plt Count (130 - 400 /CUMM) 410 H MPV (7.4 - 10.4 FL) 7.0 L Gran % (42.2 - 75.2 %) 89.3 H Lymphocytes % (20.5 - 51.1 %) 5.6 L Monocytes % (1.7 - 9.3 %) 2.7 Eosinophils % (0 - 5 %) 1.0 Basophils % (0.0 - 2.0 %) 1.4 Absolute Granulocytes (1.4 - 6.5 /CUMM) 23.6 H Absolute Lymphocytes (1.2 - 3.4 /CUMM) 1.5 Absolute Monocytes (0.10 - 0.60 /CUMM) 0.7 H Absolute Eosinophils (0.0 - 0.7 /CUMM) 0.3 Absolute Basophils (0.0 - 0.2 /CUMM) 0.4 PUBS MCHC (33.0 - 37.0 G/DL) 34.0
--- NOTE | 2017-06-21 11:42 | PN- Infect Dx ---
Subjective Subjective: Feeling better; decreased R sided chest dicomfort; CT in place (hemorragic pleural fluid). No fever. Review of Systems Comments: 12 points reviewed as noted, otherwise negative. Objective Last 24 Hrs of Vital Signs/I&O Vital Signs Date Time Temp Pulse Resp B/P B/P Pulse O2 O2 Flow FiO2 Mean Ox Delivery Rate 06/21 1030 93 Nasal 4.0L Cannula 06/21 0800 93 Nasal 4.0L Cannula 06/21 0646 97.6 83 20 154/68 93 Nasal Cannula 06/21 0000 Nasal 4.0L Cannula 06/20 2312 98.9 82 16 162/68 94 Nasal 4.0L Cannula 06/20 2050 94 Nasal 4.0L Cannula 06/20 1442 97.4 78 20 154/62 94 Intake & Output 06/21 1600 06/21 0800 06/21 0000 Intake Total 360 360 Output Total 750 450 Balance -390 -90 Intake, Oral 360 360 Number 2 Bowel Movements Output, Urine 750 450 Physical Exam Other Physical Findings: General Appearance Alert, Oriented X3, Cooperative, Elevated BMI Skin Pale HEENT Atraumatic, Mucous Membr. moist/pink Neck Supple, No CYNTHIA Cardiovascular S1, S2 present, 1/6 PRATIBHA LUSB Lungs b/l decreased breath sounds both bases; R side chest tube w/ hemorragic drainage Abdomen Normal Bowel Sounds, Soft, No Tenderness, Protuberant Extremities left BKA Results Last 24 Hours of Lab Results: Laboratory Tests 06/21 0430 Chemistry Sodium (137 - 145 mmol/L) 136 L Potassium (3.5 - 5.1 mmol/L) 4.3 Chloride (98 - 107 mmol/L) 107 Carbon Dioxide (22 - 30 mmol/L) 18 L Anion Gap (5 - 16) 10 BUN (7 - 17 mg/dL) 64 H Creatinine (0.5 - 1.0 mg/dL) 3.2 H Estimated GFR (>60 ml/min) 15 L BUN/Creatinine Ratio (7 - 25 %) 20.0 Coagulation APTT (25 - 37 SEC) 37 Hematology CBC w Diff NO MAN DIFF REQ WBC (4.8 - 10.8 /CUMM) 26.4 H RBC (4.20 - 5.40 /CUMM) 2.26 L Hgb (12.0 - 16.0 G/DL) 7.4 *L Hct (37 - 47 %) 21.8 L MCV (81.0 - 99.0 FL) 96.3 MCH (27.0 - 31.0 PG) 32.7 H RDW (11.5 - 14.5 %) 14.6 H Plt Count (130 - 400 /CUMM) 410 H MPV (7.4 - 10.4 FL) 7.0 L Gran % (42.2 - 75.2 %) 89.3 H Lymphocytes % (20.5 - 51.1 %) 5.6 L Monocytes % (1.7 - 9.3 %) 2.7 Eosinophils % (0 - 5 %) 1.0 Basophils % (0.0 - 2.0 %) 1.4 Absolute Granulocytes (1.4 - 6.5 /CUMM) 23.6 H Absolute Lymphocytes (1.2 - 3.4 /CUMM) 1.5 Absolute Monocytes (0.10 - 0.60 /CUMM) 0.7 H Absolute Eosinophils (0.0 - 0.7 /CUMM) 0.3 Absolute Basophils (0.0 - 0.2 /CUMM) 0.4 PUBS MCHC (33.0 - 37.0 G/DL) 34.0 Last 24 Hours of Drew Results: SPEC #: [id number] MICHAEL: 06/13/17 STATUS: COMP RECD: 06/13/[address]: Rhys RODAS, Reet SOURCE: BODY FLUID ENTR: 06/13/17170 [facility] DR: Saúl RODAS, Wallace SPDESC: PLEURAL FL ORDERED: BODY FLD CULTUR COMMENT: ADDITIONAL INFORMATION: EMPYEMA Procedure Result > GRAM STAIN Final 06/14/17-0921 WHITE BLOOD CELLS MANY OTHER NO ORGANISMS SEEN > BODY FLUID CULTURE Final 06/20/17-1025 NO GROWTH AFTER 6 DAYS Recent Imaging Studies: COMPARISON: Right-sided DVT study done on 06/12/2017. TECHNIQUE: Color-flow triplex imaging with spectral analysis and compression Doppler were performed on the lower extremities. FINDINGS: RIGHT LOWER EXTREMITY: Respiratory variation, normal compression and augmented flow are noted throughout the right lower extremity. The visualized common femoral vein, superficial femoral vein, profunda femoral vein, popliteal vein and midcalf peroneal and posterior tibial venous segments show no evidence of deep venous thrombosis. Incidental note is made of persistent stable thrombus within the greater saphenous vein as was detected on the prior study dated 06/12/2017. There is no Magallanes's cyst. LEFT LOWER EXTREMITY: Occlusive thrombus is identified within the left superficial femoral vein. There is no thrombus identified within the left common femoral as well as popliteal veins. The calf veins could not be evaluated since patient has a below knee amputation. IMPRESSION: 1. Persistent stable superficial venous thrombus within the right greater saphenous vein, unchanged since 06/12/2017. 2. Occlusive thrombus within the left superficial femoral vein (part of the deep system) with patent left common femoral and popliteal veins. This critical result was discussed with Dr. Hernandez at 6:32 PM on 06/20/2017 and it was ascertained that the content and urgency of the report was understood at the time of direct communication. DICTATED BY: Lynne Rodriguez MD DATE/TIME DICTATED:06/20/171824 NITRIC ACID CONCENTRATOR OPERATOR:FARZANA DATE/TIME TRANSCRIBED:06/20/171824 Assessment/Plan Impression: 61-year-old woman with diabetes, peripheral vascular disease and neuropathy, status post left BKA over 8 years prior to admission, with a Charcot right foot, status post amputations of the first and third toes, chronic kidney disease, COPD, and a history of left lower extremity DVT, status post IVC filter, last hospitalized 8 months prior to admission with a cellulitis of the left BKA stump , admitted on June 12 with a several week history of a cough, occasionally productive of yellow sputum, undocumented fevers with chills, and more recent onset of right sided chest pain and increasing shortness of breath. S/p chest tube placenment 06/18 for a loculated effusion/empyema secondary to Haemophilus influenzae, isolated from the initial blood cultures and, likely, from the pleural fluid. She remains afebrile on Unasyn, with her white blood cell count continuing to decrease, though still severe leukocytosis, possibility due loculated empyema ( decortication planned). L LE DVT Suggestion: 1. Continue Unasyn started 06/17 (verify dosing with pharmacy taking in account kidney function; if creatinine clearance 15-29 ml/min 3 gm q 12 h dose recommended) 2. Further management per pulm/ Thoracic surgery 3. Trend CBC/BMP
--- NOTE | 2017-06-21 12:49 | PN- Pulmonary ---
Subjective HPI/Critical Care Issues: Feeling better; decreased R sided chest dicomfort; CT in place (hemorragic pleural fluid). No fever. Review of Systems Comments: 12 points reviewed as noted, otherwise negative. Objective Current Medications: Current Medications Sig/Suleman Start time Last Medication Dose Route Stop Time Status Admin Acetaminophen 1,000 MG Q6P PRN 06/19 1130 AC 06/21 N/A 1 UNIT IV 0027 Albuterol Sulfate 3 ML BID 06/15 2200 AC 06/21 INH 1030 Ampicillin Sodium/ 3,000 MG Q8H 06/17 1600 AC 06/21 Sulbactam Sodium IV 0849 Sodium Chloride 100 ML Aspirin Buffered 650 MG DAILY 06/13 1000 AC 06/21 PO 0850 Atorvastatin Calcium 40 MG 1700 06/15 1700 AC 06/20 PO 1619 Calcium Carbonate 500 MG DAILY 06/21 1000 AC 06/21 PO 1012 Docusate Sodium 100 MG BID 06/12 2359 AC 06/21 PO 0849 Furosemide 40 MG DAILY 06/13 1000 AC 06/21 PO 0850 Heparin Sodium 5,000 UNIT Q8 06/20 2200 CAN (Porcine) SC Heparin Sodium 25,000 UNIT Q24H 06/20 1915 AC 06/20 (Porcine) IV 2222 Sodium Chloride 500 ML Hydromorphone HCl 0.2 MG ONCE ONE 06/21 0845 DC 06/21 IV 06/21 0846 0836 Hydromorphone HCl 0.2 MG Q6-PRN PRN 06/16 1615 AC 06/21 IV 0656 Insulin Aspart 0 TIDAC/HS 06/18 1615 AC 06/21 SC 1232 Insulin Detemir 40 UNITS BID 06/18 2200 AC 06/21 SC 0855 Lidocaine 1 PAT DAILY@1700 06/20 1700 AC 06/20 EXT 1953 Nitroglycerin 0.5 GM Q6P PRN 06/15 1830 AC TOP Pregabalin 75 MG BID 06/13 2200 AC 06/21 PO 0855 Tiotropium [place] 1 PUF DAILY 06/14 1000 AC 06/21 INH 0850 Vital Signs & I&O Last 24 Hrs of Vitals and I&O: Vital Signs Date Time Temp Pulse Resp B/P B/P Pulse O2 O2 Flow FiO2 Mean Ox Delivery Rate 06/21 1030 93 Nasal 4.0L Cannula 06/21 0800 93 Nasal 4.0L Cannula 06/21 0646 97.6 83 20 154/68 93 Nasal Cannula 06/21 0000 Nasal 4.0L Cannula 06/20 2312 98.9 82 16 162/68 94 Nasal 4.0L Cannula 06/200 94 Nasal 4.0L Cannula 06/20 1442 97.4 78 20 154/62 94 Intake & Output 06/21 1600 06/21 0800 06/21 0000 Intake Total 360 360 Output Total 750 450 Balance -390 -90 Intake, Oral 360 360 Number 2 Bowel Movements Output, Urine 750 450 Impression/Plan Impression/Plan Impression/Plan: Ultrasound of lower ext MPRESSION: 1. Persistent stable superficial venous thrombus within the right greater saphenous vein, unchanged since 06/12/2017. 2. Occlusive thrombus within the left superficial femoral vein (part of the deep system) with patent left common femoral and popliteal veins. This critical result was discussed with Dr. Hernandez at 6:32 PM on 06/20/2017 and it was ascertained that the content and urgency of the report was understood at the time of direct communication. IMPRESSION: 1. The size of the right-sided pleural effusion has decreased since 06/18/2017. Residual moderate-sized pleural effusion is still present with multiple new air pockets possibly related to recent intervention. 2. No other significant change. DICTATED BY: Lynne Rodriguez MD General Appearance Alert, Oriented X3, Cooperative, Elevated BMI Skin Pale HEENT Atraumatic, Mucous Membr. moist/pink Neck Supple, No CYNTHIA Cardiovascular S1, S2 present, 2/6 PRATIBHA LUSB Lungs b/l decreased breath sounds both bases; R side chest tube w/ hemorragic drainage Abdomen Normal Bowel Sounds, Soft, No Tenderness, Protuberant Extremities left leg non pitting edema with chronic skin changes, left stump examined, no skin breakdown 61-year-old woman with diabetes, peripheral vascular disease and neuropathy, status post left BKA over 8 years prior to admission, with a Charcot right foot, status post amputations of the first and third toes, chronic kidney disease, COPD, and a history of left lower extremity DVT, status post IVC filter, last hospitalized 8 months prior to admission with a cellulitis of the left BKA stump , admitted on June 12 with a several week history of a cough, occasionally productive of yellow sputum, undocumented fevers with chills, and more recent onset of right sided chest pain and increasing shortness of breath. S/p chest tube placenment 06/18 for a loculated effusion/empyema secondary to Haemophilus influenzae, isolated from the initial blood cultures and, likely, from the pleural fluid. She remains afebrile on Unasyn, with her white blood cell count decreased today, though still severe leukocytosis, possibility due to undrained/loculated empyema. ISSUES Empyema with complicated effusion with hemorragic fluid Sig pna with trapped lung Patient with now bilateral sup thrombophebitis with dvt PRevious cellulitis DM with multiple complications including pvc, neuropathy Recurrent cellulitis Unlikely sig pe IHD Poor performance status ckd REC COnt chest tube and abx cont heparin IF she goes to the or needs IVC filter Discussed Dr Rebolledo and pt would need surgical rx with decortication and this is being considered in the next few days cont meds for IHD Follow endo eval Will follow
[2017-06-21 14:12] LABS: PTT 42 SEC (25-37)
[2017-06-21 14:39] VITALS: BP 180/70
[2017-06-21 23:04] VITALS: BP 142/60
[2017-06-22 01:03] LABS: PTT 78 SEC (25-37)
[2017-06-22 07:20] VITALS: BP 162/76
[2017-06-22 08:23] LABS: ABSOLUTE BASOPHIL COUNT 0 /CUMM (0.0-0.2); ABSOLUTE EOSINOPHIL COUNT 0.2 /CUMM (0.0-0.7); ABSOLUTE GRANULOCYTE CT 27.1 /CUMM (1.4-6.5); ABSOLUTE LYMPH COUNT 1.5 /CUMM (1.2-3.4); ABSOLUTE MONOCYTE COUNT 0.7 /CUMM (0.10-0.60); BASOPHIL % 0.1 % (0.0-2.0); EOSINOPHIL % 0.8 % (0-5); GRANULOCYTE % 91.4 % (42.2-75.2); HEMATOCRIT 22.1 % (37-47); MEAN CORPUSCULAR VOLUME 97.2 FL (81.0-99.0); MEAN PLATELET VOLUME 7.3 FL (7.4-10.4); PLATELET COUNT 399 /CUMM (130-400); RBC DISTRIBUTION WIDTH 15.1 % (11.5-14.5); RED BLOOD CELL CT 2.28 /CUMM (4.20-5.40); WHITE BLOOD CELL COUNT 29.6 /CUMM (4.8-10.8)
--- NOTE | 2017-06-22 09:27 | PN- Housestaff ---
Subjective Follow-up For: Empyema AMEYA Neuropathy Tele-Events Since Last Visit: Normal sinus rhythm rates 72-86, no overnight events Subjective: This morning the patient continues to be in pain. She notes that she has paresthesias additionally that her chronic and for which she takes Lyrica. The patient requests placement of Guzman catheter as she is continuously having to urinate and is having a lot of pain on moving. The patient is set for surgery in the morning with Dr. Rebolledo for decortication of lung. Patient notes that her breathing is the same as before and she continues to be on 3 L nasal cannula. Review of Systems Constitutional: Reports: weakness. EENTM: Reports: no symptoms. Cardiovascular: Reports: chest pain. Respiratory: Reports: short of breath. Gastrointestinal: Reports: no symptoms. Genitourinary: Reports: no symptoms. Musculoskeletal: Reports: no symptoms. Skin: Reports: no symptoms. Neurological/Psychological: Reports: no symptoms. Hematologic/Endocrine: Reports: no symptoms. Immunologic/Allergic: Reports: no symptoms. Objective Last 24 Hrs of Vital Signs/I&O Vital Signs Date Time Temp Pulse Resp B/P B/P Pulse O2 O2 Flow FiO2 Mean Ox Delivery Rate 06/22 2103 93 Nasal 3.0L Cannula 06/22 1433 97.4 79 18 174/70 95 Nasal Cannula 06/22 1034 93 Nasal 3.0L Cannula 06/22 0800 95 Nasal 3.0L Cannula 06/22 0720 97.8 83 24 162/76 92 06/22 0000 93 Nasal 3.0L Cannula 06/21 2304 97.5 84 18 142/60 91 Nasal 3.0L Cannula Intake & Output 06/22 1600 06/22 0800 06/22 0000 Intake Total 1475 485 230 Output Total 1280 740 870 Balance 195 -255 -640 Intake, IV 725 365 130 Intake, Oral 750 120 100 Number 2 Bowel Movements Output, Chest 80 140 140 Tube Drainage Output, 30 Drainage Output, Urine 1200 600 700 Patient 246 lb Weight Weight Chair scale Measurement Method Physical Exam General Appearance: Alert, Oriented X3, Cooperative, Mild Distress Skin: No Rashes, No Breakdown, No Significant Lesion Skin Temp/Moisture Exam: Warm/Dry Sepsis Skin Exam (color): Normal for Ethnicity Cardiovascular: Regular Rate, Normal S1, Normal S2, No Murmurs Lungs: Clear to Auscultation Abdomen: Normal Bowel Sounds, Soft, No Tenderness, No Hepatospenomegaly Neurological: Normal Speech Extremities: No Clubbing, No Cyanosis, LEFT LEG PROSTHESIS Vascular: Normal Pulses Current Medications: Current Medications Sig/Suleman Start time Last Medication Dose Route Stop Time Status Admin Acetaminophen 1,000 MG Q6P PRN 06/19 1130 AC 06/21 N/A 1 UNIT IV 0027 Albuterol Sulfate 3 ML BID 06/15 2200 AC 06/22 INH 2103 Ampicillin Sodium/ 3,000 MG Q12 06/21 2200 AC 06/22 Sulbactam Sodium IV 0957 Sodium Chloride 100 ML Aspirin Buffered 650 MG DAILY 06/13 1000 AC 06/22 PO 0958 Atorvastatin Calcium 40 MG 1700 06/15 1700 AC 06/22 PO 1753 Calcium Carbonate 500 MG DAILY 06/21 1000 AC 06/22 PO 0958 Dextrose/Sodium 1,000 ML Q13H 06/23 0000 AC Chloride IV Docusate Sodium 100 MG BID 06/12 2359 AC 06/21 PO 2238 Furosemide 40 MG DAILY 06/13 1000 AC 06/22 PO 0958 Heparin Sodium 25,000 UNIT Q24H 06/20 1915 AC 06/22 (Porcine) IV 1755 Sodium Chloride 500 ML Hydromorphone HCl 0.2 MG ONCE ONE 06/22 1145 DC 06/22 IV 06/22 1146 1145 Hydromorphone HCl 0.2 MG Q6-PRN PRN 06/16 1615 AC 06/22 IV 1859 Insulin Aspart 0 TIDAC/HS 06/18 1615 DC 06/22 SC 1152 Insulin Detemir 30 UNITS BID 06/22 2200 SC Insulin Detemir 40 UNITS BID 06/18 2200 DC 06/22 SC 0958 Insulin Human Regular 0 Q6 06/23 0000 SC Insulin Human Regular 0 Q6 06/22 1800 DC 06/22 SC 1753 Lidocaine 1 PAT DAILY@1700 06/20 1700 AC 06/22 EXT 1754 Melatonin 5 MG AT BEDTIME 06/21 2200 AC 06/21 PO 2238 Nitroglycerin 0.5 GM Q6P PRN 06/15 1830 TOP Pregabalin 75 MG BID 06/13 2200 AC 06/22 PO 0958 Tiotropium [place] 1 PUF DAILY 06/14 1000 AC 06/22 INH 0958 Last 24 Hrs of Lab/Drew Results Last 24 Hrs of Labs/Mics: Laboratory Tests 06/22/17 1210: APTT 74 H 06/22/17 0658: Anion Gap 12, Estimated GFR 17 L, BUN/Creatinine Ratio 19.6, CBC w Diff MAN DIFF ORDERED, RBC 2.28 L, MCV 97.2, MCH 33.0 H, RDW 15.1 H, MPV 7.3 L, Gran % 91.4 H, Lymphocytes % 5.2 L, Monocytes % 2.5, Eosinophils % 0.8, Basophils % 0.1, Absolute Granulocytes 27.1 H, Absolute Lymphocytes 1.5, Absolute Monocytes 0.7 H, Absolute Eosinophils 0.2, Absolute Basophils 0, Platelet Estimate ADEQUATE, Hypochromic-Microcytic 1+, Anisocytosis 1+, PUBS MCHC 34.0 06/22/17 0030: APTT 78 H Microbiology 06/22 1045 STOOL: Clostridium difficile Toxin A & B - COLB Assessment/Plan Assessment: Assessment 61-year-old woman, current smoker with a history of COPD, diabetes type 2 with diabetic neuropathy, left leg DVT status post IVC filter, chronic kidney disease , neuropathy and peripheral vascular disease, 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 Patient had drainage and Pleurx catheter drain placed on the for question of empyema. Fluid was found to be slightly blood tinged serous grossly. Fluid composition showed elevated WBCs, RBCs, pH 6.4, LDH of 3819. She is on Unasyn. She was found to have extremely elevated white blood cell count on admission of 44. Chest x-ray done after placement on 06/13 showed persistent moderate volume of her right pleural effusion. WBCs continue to be elevated. Patient had repositioning of pigtail catheter and VQ scan done under anesthesia which returned with low to intermediate probability of PE so she was continued on IV heparin. As per cardiothoracic surgery, the patient might be bleeding and suggests discontinuing heparin. However as per cardiology the patient requires anticoagulation for potential PE. Patient has had minimal drainage after repositioning of pigtail catheter. Plan #1 Acute hypoxic respiratory failure likely secondary to community-acquired pneumonia, COMPLICATED BY EMPYEMA: She was found to have an empyema which was drained with Pleurx catheter. Fluid was found to be exudative in nature. Catheter drainage was ?650 mL of serous sanguinous fluid from first pigtail catheter placement with minimal drainage after repositioning. Repeat CT of the chest was done under anesthesia today, postoperatively stable, clearly shows complex empyema, compressing most of the lung tissue on the right side. This needs surgical debridement, and surgery has been notified about the new changes as well. As per cardiothoracic surgery, the small bleeding during the catheter insertion in the chest, might theoritically be the cause of large bruise that's visible on the right lateral chest wall currently, thus heparin was held off this AM after discussing with the attending/visitor services representative Dr. Peter. However it was subsequently restarted. - Continue oxygen, nebulizations, Unasyn 3g q12. - Surgical intervention to be planned as per cardiothoracic surgery consultation. - She had a doppler U/S today which showed Occlusive thrombus within the left superficial femoral vein and Persistent stable superficial venous thrombus within the right greater saphenous vein, unchanged since 06/12/2017. -If hemoglobin drops further than patient will need an IVC filter. She has an IVC that was placed 12 years ago. She will require the placement of the filter. IR will likely do the procedure in the morning but we will place vascular consults then as well. Attempted to place consult today but number was constantly busy. -Turn off heparin drip 2-4 hours before procedure #2 Pleuritic chest pain with positive troponins: Likely due to demand ischemia, with AMEYA also contributing to it. * According to Dr. Lucas, if patient has precordial chest pain then can begin NTG paste 1/2 inch Q 6 hours. * According to Dr. Lucas, cardiology, myocardial ischemia cannot be 100% excluded and patient should later have outpatient risk stratification with a stress test. #3 Urinary tract infection: Dirty urine, cultures positive for staph aureus * She has received an adequate course of Vancomycin for a lower urinary tract infection. Currently on Unasyn. Will continue. #4 Right knee pain: Patient notes a chronic moderate right knee pain. * Severe tricompartmental osteoarthritis seen on xray * Pain control with iv tylenol, and Dilaudid. Anemia Patient had hemoglobin 7.4 yesterday and 7.5 today. we could not transfuse her because she only has one line which is being used for heparin. We are unable to establish other access #5 Insulin-dependent diabetes mellitus, Uncontrolled * Blood sugars have ranged from 183-200 today. * Endocrinology on board, change patient to nothing by mouth insulin dosing, and switch insulin to 30 mg Levemir twice a day * Start patient on D5 half-normal saline at a rate of 75 #6 Elevated proBNP at 2590. No previous echo on record. * Attempt echo again when patient is more calm. * Continue Lasix 40mg PO daily * Daily I/O and weight checks. #7 Acute kidney injury on chronic kidney disease * Patient has had persistent bicarb deficiency during this stay, has never had this problem before. * Monitory BEP * Avoid nephrotoxins #8 Hyperkalemia * Stopped kdur * Potassium has normalized. #Diarrhea * Discontinue stool softener * Stool for C. difficile if diarrhea continues 24 hours after stopping stool softener Continuing pain Gave extra dose of Dilantin 0.2 mg Will start Guzman early as patient will require it during surgery and is requesting it now for pain when she frequently has to urinate -Pain Control with Dilaudid and IV Tylenol -Diabetic diet -DVT prophylaxis with heparin and Alps on right leg -Full code Problem List: 1. Empyema 2. Pleural effusion 3. Pneumonia 4. AMEYA (acute kidney injury) 5. Leukocytosis 6. Diabetes mellitus type 2 7. CHRONIC RENAL FAILURE Pain Ratin Pain Location: Right chest at surgical site Pain Goal: Pain 4 or less Pain Plan: Dilaudid 0.2 mg every 12 Tomorrow's Labs & Rationales: BEP and CBC
--- NOTE | 2017-06-22 10:12 | PN- Infect Dx ---
Subjective Subjective: R side chest discomfort overall improved (worse at times when changing position) . No fever. loose stools; stopped taking colace. Review of Systems Comments: 12 points reviewed as noted; otherwise negative. Objective Last 24 Hrs of Vital Signs/I&O Vital Signs Date Time Temp Pulse Resp B/P B/P Pulse O2 O2 Flow FiO2 Mean Ox Delivery Rate 06/22 0720 97.8 83 24 162/76 92 06/22 0000 93 Nasal 3.0L Cannula 06/21 2304 97.5 84 18 142/60 91 Nasal 3.0L Cannula 06/21 1930 96 Nasal 4.0L Cannula 06/21 1600 Nasal 4.0L Cannula 06/21 1439 98.3 81 20 180/70 92 Nasal 2.0L Cannula 06/21 1030 93 Nasal 4.0L Cannula Intake & Output 06/22 1600 06/22 0800 06/22 0000 Intake Total 485 230 Output Total 740 870 Balance -255 -640 Intake, IV 365 130 Intake, Oral 120 100 Output, Chest 140 140 Tube Drainage Output, 30 Drainage Output, Urine 600 700 Patient 246 lb Weight Weight Chair scale Measurement Method Physical Exam Other Physical Findings: General Appearance Alert, Oriented X3, Cooperative, Elevated BMI Skin Pale HEENT Atraumatic, Mucous Membr. moist/pink Neck Supple, No CYNTHIA Cardiovascular S1, S2 present, 1/6 PRATIBHA LUSB Lungs b/l decreased breath sounds both bases; R side chest tube w/ hemorragic drainage Abdomen Normal Bowel Sounds, Soft, No Tenderness, Protuberant Extremities left BKA Results Last 24 Hours of Lab Results: Laboratory Tests 06/22 06/22 06/21 0658 0030 1242 Chemistry Sodium (137 - 145 mmol/L) 140 Potassium (3.5 - 5.1 mmol/L) 4.2 Chloride (98 - 107 mmol/L) 110 H Carbon Dioxide (22 - 30 mmol/L) 18 L Anion Gap (5 - 16) 12 BUN (7 - 17 mg/dL) 55 H Creatinine (0.5 - 1.0 mg/dL) 2.8 H Estimated GFR (>60 ml/min) 17 L BUN/Creatinine Ratio (7 - 25 %) 19.6 Coagulation APTT (25 - 37 SEC) 78 H 42 H Hematology CBC w Diff MAN DIFF ORDERED WBC (4.8 - 10.8 /CUMM) 29.6 H RBC (4.20 - 5.40 /CUMM) 2.28 L Hgb (12.0 - 16.0 G/DL) 7.5 L Hct (37 - 47 %) 22.1 L MCV (81.0 - 99.0 FL) 97.2 MCH (27.0 - 31.0 PG) 33.0 H RDW (11.5 - 14.5 %) 15.1 H Plt Count (130 - 400 /CUMM) 399 MPV (7.4 - 10.4 FL) 7.3 L Gran % (42.2 - 75.2 %) 91.4 H Lymphocytes % (20.5 - 51.1 %) 5.2 L Monocytes % (1.7 - 9.3 %) 2.5 Eosinophils % (0 - 5 %) 0.8 Basophils % (0.0 - 2.0 %) 0.1 Absolute Granulocytes (1.4 - 6.5 /CUMM) 27.1 H Absolute Lymphocytes (1.2 - 3.4 /CUMM) 1.5 Absolute Monocytes (0.10 - 0.60 /CUMM) 0.7 H Absolute Eosinophils (0.0 - 0.7 /CUMM) 0.2 Absolute Basophils (0.0 - 0.2 /CUMM) 0 Platelet Estimate (ADEQUATE) ADEQUATE Hypochromic-Microcytic 1+ Anisocytosis 1+ PUBS MCHC (33.0 - 37.0 G/DL) 34.0 Last 24 Hours of Drew Results: reviewed Recent Imaging Studies: DUS LE's IMPRESSION: 1. Persistent stable superficial venous thrombus within the right greater saphenous vein, unchanged since 06/12/2017. 2. Occlusive thrombus within the left superficial femoral vein (part of the deep system) with patent left common femoral and popliteal veins. This critical result was discussed with Dr. Hernandez at 6:32 PM on 06/20/2017 and it was ascertained that the content and urgency of the report was understood at the time of direct communication. DICTATED BY: Lynne Rodriguez MD DATE/TIME DICTATED:06/20/171824 WASHER MACHINE:FARZANA DATE/TIME TRANSCRIBED:06/20/171824 Assessment/Plan Impression: 61-year-old woman with diabetes, peripheral vascular disease and neuropathy, status post left BKA over 8 years prior to admission, with a Charcot right foot, status post amputations of the first and third toes, chronic kidney disease, COPD, and a history of left lower extremity DVT, status post IVC filter, last hospitalized 8 months prior to admission with a cellulitis of the left BKA stump , admitted on June 12 with a several week history of a cough, occasionally productive of yellow sputum, undocumented fevers with chills, and more recent onset of right sided chest pain and increasing shortness of breath. S/p chest tube placenment 06/18 for a loculated effusion/empyema secondary to Haemophilus influenzae, isolated from the initial blood cultures and, likely, from the pleural fluid. She remains afebrile on Unasyn, persistent severe leukocytosis, possibility due loculated empyema (decortication planned). L LE DVT; patient believes she had IVC filter placed 11 yrs ago Suggestion: 1. Continue Unasyn started 06/17 3 gm q 12 h; adjust dose if kidney function improving 2. Further management per pulm/ Thoracic surgery (lung decortication 06/23/17). 3. Trend CBC/BMP. 4. Stool for C. difficile toxin/antigen if persitent diarrhea 24 h after stopping stool softner.
--- NOTE | 2017-06-22 10:32 | PN- Pulmonary ---
Subjective HPI/Critical Care Issues: Doing ok still in pain Objective Current Medications: Current Medications Sig/Suleman Start time Last Medication Dose Route Stop Time Status Admin Acetaminophen 1,000 MG Q6P PRN 06/19 1130 AC 06/21 N/A 1 UNIT IV 0027 Albuterol Sulfate 3 ML BID 06/15 2200 AC 06/22 INH 1017 Ampicillin Sodium/ 3,000 MG Q12 06/21 2200 AC 06/22 Sulbactam Sodium IV 0957 Sodium Chloride 100 ML Ampicillin Sodium/ 3,000 MG Q8H 06/17 1600 DC 06/21 Sulbactam Sodium IV 0849 Sodium Chloride 100 ML Aspirin Buffered 650 MG DAILY 06/13 1000 AC 06/22 PO 0958 Atorvastatin Calcium 40 MG 1700 06/15 1700 AC 06/21 PO 1640 Calcium Carbonate 500 MG DAILY 06/21 1000 AC 06/22 PO 0958 Docusate Sodium 100 MG BID 06/12 2359 AC 06/21 PO 2238 Furosemide 40 MG DAILY 06/13 1000 AC 06/22 PO 0958 Heparin Sodium 2,000 UNIT ONCE ONE 06/21 1900 DC 06/21 (Porcine) IV 06/21 1901 1800 Heparin Sodium 25,000 UNIT Q24H 06/20 1915 AC 06/21 (Porcine) IV 2022 Sodium Chloride 500 ML Hydromorphone HCl 0.2 MG Q6-PRN PRN 06/16 1615 AC 06/22 IV 0738 Insulin Aspart 0 TIDAC/HS 06/18 1615 AC 06/22 SC 0801 Insulin Detemir 40 UNITS BID 06/18 2200 AC 06/22 SC 0958 Lidocaine 1 PAT DAILY@1700 06/20 1700 AC 06/21 EXT 1641 Melatonin 5 MG AT BEDTIME 06/21 2200 AC 06/21 PO 2238 Nitroglycerin 0.5 GM Q6P PRN 06/15 1830 AC TOP Pregabalin 75 MG BID 06/13 2200 AC 06/22 PO 0958 Tiotropium [place] 1 PUF DAILY 06/14 1000 AC 06/22 INH 0958 Vital Signs & I&O Last 24 Hrs of Vitals and I&O: Vital Signs Date Time Temp Pulse Resp B/P B/P Pulse O2 O2 Flow FiO2 Mean Ox Delivery Rate 06/22 0720 97.8 83 24 162/76 92 06/22 0000 93 Nasal 3.0L Cannula 12/31 2304 97.5 84 18 142/60 91 Nasal 3.0L Cannula 06/21 1930 96 Nasal 4.0L Cannula 06/21 1600 Nasal 4.0L Cannula 06/21 1439 98.3 81 20 180/70 92 Nasal 2.0L Cannula 06/21 1030 93 Nasal 4.0L Cannula Intake & Output 06/22 1600 06/22 0800 06/22 0000 Intake Total 485 230 Output Total 740 870 Balance -255 -640 Intake, IV 365 130 Intake, Oral 120 100 Output, Chest 140 140 Tube Drainage Output, 30 Drainage Output, Urine 600 700 Patient 246 lb Weight Weight Chair scale Measurement Method Laboratory Tests 06/22 06/22 06/21 0658 0030 1242 Chemistry Sodium (137 - 145 mmol/L) 140 Potassium (3.5 - 5.1 mmol/L) 4.2 Chloride (98 - 107 mmol/L) 110 H Carbon Dioxide (22 - 30 mmol/L) 18 L Anion Gap (5 - 16) 12 BUN (7 - 17 mg/dL) 55 H Creatinine (0.5 - 1.0 mg/dL) 2.8 H Estimated GFR (>60 ml/min) 17 L BUN/Creatinine Ratio (7 - 25 %) 19.6 Coagulation APTT (25 - 37 SEC) 78 H 42 H Hematology CBC w Diff MAN DIFF ORDERED WBC (4.8 - 10.8 /CUMM) 29.6 H RBC (4.20 - 5.40 /CUMM) 2.28 L Hgb (12.0 - 16.0 G/DL) 7.5 L Hct (37 - 47 %) 22.1 L MCV (81.0 - 99.0 FL) 97.2 MCH (27.0 - 31.0 PG) 33.0 H RDW (11.5 - 14.5 %) 15.1 H Plt Count (130 - 400 /CUMM) 399 MPV (7.4 - 10.4 FL) 7.3 L Gran % (42.2 - 75.2 %) 91.4 H Lymphocytes % (20.5 - 51.1 %) 5.2 L Monocytes % (1.7 - 9.3 %) 2.5 Eosinophils % (0 - 5 %) 0.8 Basophils % (0.0 - 2.0 %) 0.1 Absolute Granulocytes (1.4 - 6.5 /CUMM) 27.1 H Absolute Lymphocytes (1.2 - 3.4 /CUMM) 1.5 Absolute Monocytes (0.10 - 0.60 /CUMM) 0.7 H Absolute Eosinophils (0.0 - 0.7 /CUMM) 0.2 Absolute Basophils (0.0 - 0.2 /CUMM) 0 Platelet Estimate (ADEQUATE) ADEQUATE Hypochromic-Microcytic 1+ Anisocytosis 1+ PUBS MCHC (33.0 - 37.0 G/DL) 34.0 06/21 0430 Chemistry Sodium (137 - 145 mmol/L) 136 L Potassium (3.5 - 5.1 mmol/L) 4.3 Chloride (98 - 107 mmol/L) 107 Carbon Dioxide (22 - 30 mmol/L) 18 L Anion Gap (5 - 16) 10 BUN (7 - 17 mg/dL) 64 H Creatinine (0.5 - 1.0 mg/dL) 3.2 H Estimated GFR (>60 ml/min) 15 L BUN/Creatinine Ratio (7 - 25 %) 20.0 Coagulation APTT (25 - 37 SEC) 37 Hematology CBC w Diff NO MAN DIFF REQ WBC (4.8 - 10.8 /CUMM) 26.4 H RBC (4.20 - 5.40 /CUMM) 2.26 L Hgb (12.0 - 16.0 G/DL) 7.4 *L Hct (37 - 47 %) 21.8 L MCV (81.0 - 99.0 FL) 96.3 MCH (27.0 - 31.0 PG) 32.7 H RDW (11.5 - 14.5 %) 14.6 H Plt Count (130 - 400 /CUMM) 410 H MPV (7.4 - 10.4 FL) 7.0 L Gran % (42.2 - 75.2 %) 89.3 H Lymphocytes % (20.5 - 51.1 %) 5.6 L Monocytes % (1.7 - 9.3 %) 2.7 Eosinophils % (0 - 5 %) 1.0 Basophils % (0.0 - 2.0 %) 1.4 Absolute Granulocytes (1.4 - 6.5 /CUMM) 23.6 H Absolute Lymphocytes (1.2 - 3.4 /CUMM) 1.5 Absolute Monocytes (0.10 - 0.60 /CUMM) 0.7 H Absolute Eosinophils (0.0 - 0.7 /CUMM) 0.3 Absolute Basophils (0.0 - 0.2 /CUMM) 0.4 PUBS MCHC (33.0 - 37.0 G/DL) 34.0 Impression/Plan Impression/Plan Impression/Plan: Ultrasound of lower ext MPRESSION: 1. Persistent stable superficial venous thrombus within the right greater saphenous vein, unchanged since 06/12/2017. 2. Occlusive thrombus within the left superficial femoral vein (part of the deep system) with patent left common femoral and popliteal veins. This critical result was discussed with Dr. Hernandez at 6:32 PM on 06/20/2017 and it was ascertained that the content and urgency of the report was understood at the time of direct communication. IMPRESSION: 1. The size of the right-sided pleural effusion has decreased since 06/18/2017. Residual moderate-sized pleural effusion is still present with multiple new air pockets possibly related to recent intervention. 2. No other significant change. DICTATED BY: Lynne Rodriguez MD General Appearance Alert, Oriented X3, Cooperative, Elevated BMI Skin Pale HEENT Atraumatic, Mucous Membr. moist/pink Neck Supple, No CYNTHIA Cardiovascular S1, S2 present, 2/6 PRATIBHA LUSB Lungs b/l decreased breath sounds both bases; R side chest tube w/ hemorragic drainage Abdomen Normal Bowel Sounds, Soft, No Tenderness, Protuberant Extremities left leg non pitting edema with chronic skin changes, left stump examined, no skin breakdown 61-year-old woman with diabetes, peripheral vascular disease and neuropathy, status post left BKA over 8 years prior to admission, with a Charcot right foot, status post amputations of the first and third toes, chronic kidney disease, COPD, and a history of left lower extremity DVT, status post IVC filter, last hospitalized 8 months prior to admission with a cellulitis of the left BKA stump , admitted on June 12 with a several week history of a cough, occasionally productive of yellow sputum, undocumented fevers with chills, and more recent onset of right sided chest pain and increasing shortness of breath. S/p chest tube placenment 06/18 for a loculated effusion/empyema secondary to Haemophilus influenzae, isolated from the initial blood cultures and, likely, from the pleural fluid. She remains afebrile on Unasyn, with her white blood cell count decreased today, though still severe leukocytosis, possibility due to undrained/loculated empyema. ISSUES Empyema with complicated effusion with hemorragic fluid Sig pna with trapped lung, Large bruise with sub cut oozing around the chest tube site Patient with now bilateral sup thrombophebitis with dvt aswell PRevious cellulitis DM with multiple complications including pvc, neuropathy Recurrent cellulitis Unlikely sig pe IHD Poor performance status ckd REC COnt chest tube and abx cont heparin, if hemoglobin drops further then patient would need a ivc filter tommorow Please Call vascular consult today and if the patient goes to the or tommorow for decortication then IVC filter can be placed at the same time Cont heparin and this may need to be held if the hemoglobin drops further Discussed Dr Rebolledo and pt would need surgical rx with decortication and this is being considered in the next few days cont meds for IHD Follow endo eval Will follow
--- NOTE | 2017-06-22 11:04 | PN- Diabetes ---
Assessment/Plan Assessment: This 61-year-old woman with a known history of type 2 diabetes mellitus associated with morbid obesity and with severe complications including a left below the knee amputation diabetic neuropathy and chronic kidney diseases stage 4 presented to the emergency room with respiratory failure. She has been found to have an empyema in her right chest and chest tube was inserted. She feels much improved. She is on Lantus 40 units twice a day, Novolog coverage before meals and Novolog coverage at bedtime. Her FSGs were 183, 200, 219, 168 and 139. Plan: ---continue the current insulin regimen for now; ---if she is going to be kept NPO after midnight for procedure tomorrow, I will recommend decreasing Levemir to 30 units tonight. ---please call if there is any question. will follow. Subjective Subjective: Her glucose level has been better controlled. Objective Last 24 Hrs of Vital Signs/I&O Vital Signs Date Time Temp Pulse Resp B/P B/P Pulse O2 O2 Flow FiO2 Mean Ox Delivery Rate 06/22 1034 93 Nasal 3.0L Cannula 06/22 0720 97.8 83 24 162/76 92 06/22 0000 93 Nasal 3.0L Cannula 06/21 2304 97.5 84 18 142/60 91 Nasal 3.0L Cannula 06/21 1930 96 Nasal 4.0L Cannula 06/21 1600 Nasal 4.0L Cannula 06/21 1439 98.3 81 20 180/70 92 Nasal 2.0L Cannula Intake & Output 06/22 1600 06/22 0800 06/22 0000 Intake Total 485 230 Output Total 740 870 Balance -255 -640 Intake, IV 365 130 Intake, Oral 120 100 Output, Chest 140 140 Tube Drainage Output, 30 Drainage Output, Urine 600 700 Patient 246 lb Weight Weight Chair scale Measurement Method Findings Pertinent Lab/Drew Results: Laboratory Tests 06/22 06/22 06/21 0658 0030 1242 Chemistry Sodium (137 - 145 mmol/L) 140 Potassium (3.5 - 5.1 mmol/L) 4.2 Chloride (98 - 107 mmol/L) 110 H Carbon Dioxide (22 - 30 mmol/L) 18 L Anion Gap (5 - 16) 12 BUN (7 - 17 mg/dL) 55 H Creatinine (0.5 - 1.0 mg/dL) 2.8 H Estimated GFR (>60 ml/min) 17 L BUN/Creatinine Ratio (7 - 25 %) 19.6 Coagulation APTT (25 - 37 SEC) 78 H 42 H Hematology CBC w Diff MAN DIFF ORDERED WBC (4.8 - 10.8 /CUMM) 29.6 H RBC (4.20 - 5.40 /CUMM) 2.28 L Hgb (12.0 - 16.0 G/DL) 7.5 L Hct (37 - 47 %) 22.1 L MCV (81.0 - 99.0 FL) 97.2 MCH (27.0 - 31.0 PG) 33.0 H RDW (11.5 - 14.5 %) 15.1 H Plt Count (130 - 400 /CUMM) 399 MPV (7.4 - 10.4 FL) 7.3 L Gran % (42.2 - 75.2 %) 91.4 H Lymphocytes % (20.5 - 51.1 %) 5.2 L Monocytes % (1.7 - 9.3 %) 2.5 Eosinophils % (0 - 5 %) 0.8 Basophils % (0.0 - 2.0 %) 0.1 Absolute Granulocytes (1.4 - 6.5 /CUMM) 27.1 H Absolute Lymphocytes (1.2 - 3.4 /CUMM) 1.5 Absolute Monocytes (0.10 - 0.60 /CUMM) 0.7 H Absolute Eosinophils (0.0 - 0.7 /CUMM) 0.2 Absolute Basophils (0.0 - 0.2 /CUMM) 0 Platelet Estimate (ADEQUATE) ADEQUATE Hypochromic-Microcytic 1+ Anisocytosis 1+ PUBS MCHC (33.0 - 37.0 G/DL) 34.0
[2017-06-22 13:14] LABS: PTT 74 SEC (25-37)
[2017-06-22 14:33] VITALS: BP 174/70
[2017-06-22 22:01] VITALS: BP 160/60
[2017-06-23 07:10] VITALS: BP 138/50
--- NOTE | 2017-06-23 07:54 | PN- Diabetes ---
Assessment/Plan Assessment: This 61-year-old woman with a known history of type 2 diabetes mellitus associated with morbid obesity and with severe complications including a left below the knee amputation diabetic neuropathy and chronic kidney diseases stage 4 presented to the emergency room with respiratory failure. She has been found to have an empyema in her right chest and chest tube was inserted. She feels much improved. The patient received Lantus 30 units last night which was a reduced dose because she is scheduled for some procedures today. Plan: Suggest hold Levemir this morning. The patient needs to be on D5 half-normal saline at 75 mL an hour. Suggest that we change the patient to Novolog every 4 hours rather than regular insulin every 6 hours. NovoLog every 4 hours should be less than 150 give no insulin, 151-200 give 4 units NovoLog, 201-250 give 5 units NovoLog, 251-300 give 6 units NovoLog, 301-350 give 7 units NovoLog, 351-400 give 8 units NovoLog. When the patient is eating again she should resume her usual insulin Subjective Subjective: Finally last night Review of Systems Constitutional: Denies: chills, fever. Cardiovascular: Denies: chest pain. Respiratory: Reports: cough, short of breath. Gastrointestinal: Denies: nausea, vomiting. Objective Last 24 Hrs of Vital Signs/I&O Vital Signs Date Time Temp Pulse Resp B/P B/P Pulse O2 O2 Flow FiO2 Mean Ox Delivery Rate 06/23 0710 98.1 80 18 138/50 92 Nasal 3.0L Cannula 06/23 0000 Nasal 3.0L Cannula 06/22 2201 98.1 88 18 160/60 92 06/22 2103 93 Nasal 3.0L Cannula 06/22 1600 93 Nasal 3.0L Cannula 06/22 1433 97.4 79 18 174/70 95 Nasal Cannula 06/22 1034 93 Nasal 3.0L Cannula 06/22 0800 95 Nasal 3.0L Cannula Intake & Output 06/23 0800 06/23 0000 06/22 1600 Intake Total 303 599 3985 Output Total 2199 666 0589 Balance -820 -400 195 Intake, IV 980 725 Intake, Oral 0 300 750 Number 2 Bowel Movements Output, Chest 80 Tube Drainage Output, Urine 4857 008 2399 Patient 220 lb 246 lb Weight Weight Chair scale Measurement Method Vital Signs Date Time Temp Pulse Resp B/P B/P Pulse O2 O2 Flow FiO2 Mean Ox Delivery Rate 06/23 0710 98.1 80 18 138/50 92 Nasal 3.0L Cannula 06/23 0000 Nasal 3.0L Cannula 06/22 2201 98.1 88 18 160/60 92 06/22 2103 93 Nasal 3.0L Cannula 06/22 1600 93 Nasal 3.0L Cannula 06/22 1433 97.4 79 18 174/70 95 Nasal Cannula 06/22 1034 93 Nasal 3.0L Cannula 06/22 0800 95 Nasal 3.0L Cannula Intake & Output 06/23 0800 06/23 0000 06/22 1600 Intake Total 217 421 6769 Output Total 1613 079 3742 Balance -820 -400 195 Intake, IV 980 725 Intake, Oral 0 300 750 Number 2 Bowel Movements Output, Chest 80 Tube Drainage Output, Urine 6920 169 0168 Patient 220 lb 246 lb Weight Weight Chair scale Measurement Method Physical Exam General Appearance: alert, awake, comfortable Neck: normal inspection Respiratory: decreased breath sounds (right lung) Cardiovascular: regular rate/rhythm Extremities: left below knee amputation Current Medications: Current Medications Sig/Suleman Start time Last Medication Dose Route Stop Time Status Admin Acetaminophen 1,000 MG Q6P PRN 06/19 1130 AC 06/23 N/A 1 UNIT IV 0230 Albuterol Sulfate 3 ML BID 06/15 2200 AC 06/22 INH 2103 Ampicillin Sodium/ 3,000 MG Q12 06/21 2200 AC 06/22 Sulbactam Sodium IV 2218 Sodium Chloride 100 ML Aspirin Buffered 650 MG DAILY 06/13 1000 AC 06/22 PO 0958 Atorvastatin Calcium 40 MG 1700 06/15 1700 AC 06/22 PO 1753 Calcium Carbonate 500 MG DAILY 06/21 1000 AC 06/22 PO 0958 Dextrose/Sodium 1,000 ML Q13H 06/23 0000 AC 06/23 Chloride IV 0115 Docusate Sodium 100 MG BID 06/12 2359 AC 06/22 PO 2218 Furosemide 40 MG DAILY 06/13 1000 AC 06/22 PO 0958 Heparin Sodium 25,000 UNIT Q24H 06/20 1915 AC 06/23 (Porcine) IV 0410 Sodium Chloride 500 ML Hydromorphone HCl 0.2 MG ONCE ONE 06/22 1145 DC 06/22 IV 06/22 1146 1145 Hydromorphone HCl 0.2 MG Q6-PRN PRN 12/26 1615 AC 06/23 IV 0350 Insulin Aspart 0 TIDAC/HS 06/18 1615 DC 06/22 SC 1152 Insulin Detemir 30 UNITS BID 06/22 2200 AC 06/22 SC 2219 Insulin Detemir 40 UNITS BID 06/18 2200 DC 06/22 SC 0958 Insulin Human Regular 0 Q6 06/23 0000 AC 06/23 SC 0650 Insulin Human Regular 0 Q6 06/22 1800 DC 06/22 SC 1753 Lidocaine 1 PAT DAILY@1700 06/20 1700 AC 06/22 EXT 1754 Melatonin 5 MG AT BEDTIME 06/21 2200 AC 06/22 PO 2220 Nitroglycerin 0.5 GM Q6P PRN 06/15 1830 AC TOP Pregabalin 75 MG BID 06/13 220 AC 06/22 PO 2219 Tiotropium [place] 1 PUF DAILY 06/14 1000 AC 06/22 INH 0958 Findings Pertinent Lab/Drew Results: Laboratory Tests 06/23 06/23 06/22 0745 0625 1210 Chemistry Sodium Pending Potassium Pending Chloride Pending Carbon Dioxide Pending Anion Gap Pending BUN Pending Creatinine Pending BUN/Creatinine Ratio Pending Coagulation APTT (25 - 37 SEC) Pending 74 H Hematology CBC w Diff Pending WBC Pending RBC Pending Hgb Pending Hct Pending MCV Pending MCH Pending RDW Pending Plt Count Pending MPV Pending PUBS MCHC Pending
[2017-06-23 08:07] LABS: ABSOLUTE BASOPHIL COUNT 0 /CUMM (0.0-0.2); ABSOLUTE EOSINOPHIL COUNT 0.3 /CUMM (0.0-0.7); ABSOLUTE GRANULOCYTE CT 26.9 /CUMM (1.4-6.5); ABSOLUTE LYMPH COUNT 1.6 /CUMM (1.2-3.4); ABSOLUTE MONOCYTE COUNT 1.1 /CUMM (0.10-0.60); BASOPHIL % 0.1 % (0.0-2.0); EOSINOPHIL % 0.9 % (0-5); MEAN CORPUSCULAR HGB 32.9 PG (27.0-31.0); MEAN CORPUSCULAR HGB CONC 33.7 G/DL (33.0-37.0); MEAN CORPUSCULAR VOLUME 97.7 FL (81.0-99.0); MEAN PLATELET VOLUME 7.2 FL (7.4-10.4); PLATELET COUNT 402 /CUMM (130-400); RBC DISTRIBUTION WIDTH 15.5 % (11.5-14.5); WHITE BLOOD CELL COUNT 29.9 /CUMM (4.8-10.8)
[2017-06-23 08:30] LABS: HEMATOCRIT 21.5 % (37-47)
--- NOTE | 2017-06-23 08:37 | PN- Pulmonary ---
Subjective HPI/Critical Care Issues: And feels somewhat improved but pleural fluid drainage remains suboptimal she is being considered for surgical drainage and IVC filter Objective Current Medications: Current Medications Sig/Suleman Start time Last Medication Dose Route Stop Time Status Admin Acetaminophen 1,000 MG Q6P PRN 06/19 1130 AC 06/23 N/A 1 UNIT IV 0230 Albuterol Sulfate 3 ML BID 06/15 2200 AC 06/22 INH 2103 Ampicillin Sodium/ 3,000 MG Q12 06/21 2200 AC 06/22 Sulbactam Sodium IV 2218 Sodium Chloride 100 ML Aspirin Buffered 650 MG DAILY 06/13 1000 AC 06/22 PO 0958 Atorvastatin Calcium 40 MG 1700 06/15 1700 AC 06/22 PO 1753 Calcium Carbonate 500 MG DAILY 06/21 1000 AC 06/22 PO 0958 Dextrose/Sodium 1,000 ML Q13H 06/23 0000 AC 06/23 Chloride IV 0115 Docusate Sodium 100 MG BID 06/12 2359 AC 06/22 PO 2218 Furosemide 40 MG DAILY 06/13 1000 AC 06/22 PO 0958 Heparin Sodium 25,000 UNIT Q24H 06/20 1915 AC 06/23 (Porcine) IV 0410 Sodium Chloride 500 ML Hydromorphone HCl 0.2 MG ONCE ONE 06/22 1145 DC 06/22 IV 06/22 1146 1145 Hydromorphone HCl 0.2 MG Q6-PRN PRN 06/16 1615 AC 06/23 IV 0350 Insulin Aspart 0 Q4 06/23 0845 UNVr SC Insulin Aspart 0 TIDAC/HS 06/18 1615 DC 06/22 AL 1152 Insulin Detemir 30 UNITS BID 06/22 2200 AC 06/22 SC 2219 Insulin Detemir 40 UNITS BID 06/18 2200 DC 06/22 SC 0958 Insulin Human Regular 0 Q6 06/23 0000 DC 06/23 SC 0650 Insulin Human Regular 0 Q6 06/22 1800 DC 06/22 SC 1753 Lidocaine 1 PAT DAILY@06/20 170 AC 06/22 EXT 1754 Melatonin 5 MG AT BEDTIME 06/210 AC 06/22 PO 2220 Nitroglycerin 0.5 GM Q6P PRN 06/15 1830 AC TOP Pregabalin 75 MG BID 06/13 2200 AC 06/22 PO 2219 Tiotropium [place] 1 PUF DAILY 06/14 1000 AC 06/22 INH 0958 Vital Signs & I&O Last 24 Hrs of Vitals and I&O: Vital Signs Date Time Temp Pulse Resp B/P B/P Pulse O2 O2 Flow FiO2 Mean Ox Delivery Rate 06/23 0710 98.1 80 18 138/50 92 Nasal 3.0L Cannula 06/23 0000 Nasal 3.0L Cannula 06/22 2201 98.1 88 18 160/60 92 06/22 2103 93 Nasal 3.0L Cannula 06/22 1600 93 Nasal 3.0L Cannula 06/22 1433 97.4 79 18 174/70 95 Nasal Cannula 06/22 1034 93 Nasal 3.0L Cannula Intake & Output 06/23 1600 06/23 0800 06/23 0000 Intake Total 980 300 Output Total 1800 700 Balance -820 -400 Intake, IV 980 Intake, Oral 0 300 Number Bowel Movements Output, Urine 1800 700 Patient 245 lb 220 lb Weight Weight Bed scale Measurement Method And saturation 3 L 92% temperature shows diminished breath sounds over the right posterior hemithorax cardiac exam shows a regular S1 and S2 without murmurs Impression/Plan Impression/Plan Impression/Plan: 61-year-old with right-sided empyema secondary to community-acquired pneumonia with associated sepsis. Patient has persistent loculated effusion and leukocytosis complicated by DVT Recommendations: Patient has persistent loculated pleural effusion and persistent leukocytosis. Await decision by CT surgery regarding the need for surgical drainage and IVC filter should that occur. His of lytics has been held because of hemorrhagic drainage
[2017-06-23 09:31] LABS: PTT 71 SEC (25-37)
--- NOTE | 2017-06-23 10:27 | PN- Att Addend ---
Attending Addendum Attending Brief Note Sitting in the chair in no respiratory distress patient nothing by mouth , going negative for surgical procedure to her pleura Vital signs are stable no fever but her white count is 29,900 hemoglobin 7.2, hematocrit 21.5 receiving a transfusion before going to the operating room. And as per infectious diseases and monitoring her labs closely Intake & Output 06/23 1600 06/23 0400 06/22 1600 06/22 0400 06/21 1600 06/21 0400 Intake Total 887 724 2621 230 1510 360 Output Total 8721 223 8766 870 1560 450 Balance -820 -400 -60 -640 -50 -90 Intake, IV 980 1090 130 400 Intake, Oral 0 300 823 950 4307 360 Number 2 2 Bowel Movements Output, Chest 220 140 10 Tube Drainage Output, 30 Drainage Output, Urine 2009 063 0783 700 1550 450 Patient 245 lb 220 lb 246 lb Weight Weight Bed scale Chair scale Measurement Method Current Medications Sig/Suleman Start time Last Medication Dose Route Stop Time Status Admin Acetaminophen 1,000 MG Q6P PRN 06/19 1130 AC 06/23 N/A 1 UNIT IV 0230 Albuterol Sulfate 3 ML BID 06/15 2200 AC 06/22 INH 2103 Ampicillin Sodium/ 3,000 MG Q12 06/21 2200 AC 06/22 Sulbactam Sodium IV 2218 Sodium Chloride 100 ML Aspirin Buffered 650 MG DAILY 06/13 1000 AC 06/22 PO 0958 Atorvastatin Calcium 40 MG 1700 06/15 1700 AC 06/22 PO 1753 Calcium Carbonate 500 MG DAILY 06/21 1000 AC 06/22 PO 0958 Dextrose/Sodium 1,000 ML Q13H 06/23 0000 AC 06/23 Chloride IV 0115 Docusate Sodium 100 MG BID 06/12 2359 AC 06/22 PO 2218 Furosemide 40 MG DAILY 06/13 1000 AC 06/23 PO 0959 Heparin Sodium 25,000 UNIT Q24H 06/20 1915 DC 06/23 (Porcine) IV 0410 Sodium Chloride 500 ML Hydromorphone HCl 0.2 MG ONCE ONE 06/22 1145 DC 06/22 IV 06/22 1146 1145 Hydromorphone HCl 0.2 MG Q6-PRN PRN 06/16 1615 AC 06/23 IV 0350 Insulin Aspart 0 Q4 06/23 0845 SC Insulin Aspart 0 TIDAC/HS 06/18 1615 DC 06/22 SC 1152 Insulin Detemir 30 UNITS BID 06/22 2200 AC 06/22 SC 2219 Insulin Detemir 40 UNITS BID 06/18 2200 DC 06/22 [place] 0958 Insulin Human Regular 0 Q6 06/23 0000 DC 06/23 WI 0650 Insulin Human Regular 0 Q6 06/22 1800 NH 06/22 WI 1753 Lidocaine 1 PAT DAILY@1700 06/20 1700 AC 06/22 EXT 1754 Melatonin 5 MG AT BEDTIME 06/21 2200 AC 06/22 PO 2220 Nitroglycerin 0.5 GM Q6P PRN 06/15 1830 AC TOP Pregabalin 75 MG BID 06/13 2200 AC 06/22 PO 2219 Tiotropium [place] 1 PUF DAILY 06/14 1000 AC 06/23 INH 1003 Laboratory Tests 06/23/17 0745: APTT 71 H 06/23/17 0625: Anion Gap 11, Estimated GFR 18 L, BUN/Creatinine Ratio 17.0, CBC w Diff MAN DIFF ORDERED, RBC 2.20 L, MCV 97.7, MCH 32.9 H, RDW 15.5 H, MPV 7.2 L, Gran % 90.0 H, Lymphocytes % 5.3 L, Monocytes % 3.7, Eosinophils % 0.9, Basophils % 0.1, Absolute Granulocytes 26.9 H, Segmented Neutrophils 89 H, Absolute Lymphocytes 1.6, Lymphocytes 8 L, Monocytes 3, Absolute Monocytes 1.1 H, Absolute Eosinophils 0.3, Absolute Basophils 0, Platelet Estimate VERIFIED BY SMEAR, Normocytic RBCs VERIFIED, Normochromic RBCs VERIFIED, PUBS MCHC 33.7 06/22/17 1210: APTT 74 H 06/22/17 0658: Anion Gap 12, Estimated GFR 17 L, BUN/Creatinine Ratio 19.6, CBC w Diff MAN DIFF ORDERED, RBC 2.28 L, MCV 97.2, MCH 33.0 H, RDW 15.1 H, MPV 7.3 L, Gran % 91.4 H, Lymphocytes % 5.2 L, Monocytes % 2.5, Eosinophils % 0.8, Basophils % 0.1, Absolute Granulocytes 27.1 H, Absolute Lymphocytes 1.5, Absolute Monocytes 0.7 H, Absolute Eosinophils 0.2, Absolute Basophils 0, Platelet Estimate ADEQUATE, Hypochromic-Microcytic 1+, Anisocytosis 1+, PUBS MCHC 34.0 06/22/17 0030: APTT 78 H 06/21/17 1242: APTT 42 H 06/21/17 0430: Anion Gap 10, Estimated GFR 15 L, BUN/Creatinine Ratio 20.0, APTT 37, CBC w Diff NO MAN DIFF REQ, RBC 2.26 L, MCV 96.3, MCH 32.7 H, RDW 14.6 H, MPV 7.0 L, Gran % 89.3 H, Lymphocytes % 5.6 L, Monocytes % 2.7, Eosinophils % 1.0, Basophils % 1.4, Absolute Granulocytes 23.6 H, Absolute Lymphocytes 1.5, Absolute Monocytes 0.7 H, Absolute Eosinophils 0.3, Absolute Basophils 0.4, PUBS MCHC 34.0 Microbiology 06/23 0040 URINE ROUT: Urine Culture - RECD 06/22 1045 STOOL: Clostridium difficile Toxin A & B - COLB Microbiology 06/23 004 URINE ROUT: Urine Culture - RECD 06/22 1045 STOOL: Clostridium difficile Toxin A & B - COLB Vital Signs Date Time Temp Pulse Resp B/P B/P Pulse O2 O2 Flow FiO2 Mean Ox Delivery Rate 06/23 0710 98.1 80 18 138/50 92 Nasal 3.0L Cannula 06/23 0000 Nasal 3.0L Cannula 06/22 2201 98.1 88 18 160/60 92 06/22 2103 93 Nasal 3.0L Cannula 06/22 1600 93 Nasal 3.0L Cannula 06/22 1433 97.4 79 18 174/70 95 Nasal Cannula 06/22 1034 93 Nasal 3.0L Cannula Heparin on hold.
--- NOTE | 2017-06-23 10:35 | PN- Housestaff ---
Subjective Follow-up For: empyema dvt/pe Tele-Events Since Last Visit: Normal sinus rhythm 77-91 with PACs Subjective: Patient was seen and examined bedside. Patient is set to go for decortication of lung. We will start HEPARIN at 9:30 in give 1 unit of blood before surgery. Patient does NOT require placement of an IVC filter as she had one placed 11 years ago. Review of Systems Constitutional: Reports: weakness. EENTM: Reports: no symptoms. Cardiovascular: Reports: chest pain. Respiratory: Reports: short of breath. Gastrointestinal: Reports: no symptoms. Genitourinary: Reports: no symptoms. Musculoskeletal: Reports: no symptoms. Skin: Reports: no symptoms. Neurological/Psychological: Reports: no symptoms. Hematologic/Endocrine: Reports: no symptoms. Immunologic/Allergic: Reports: no symptoms. Objective Last 24 Hrs of Vital Signs/I&O Vital Signs Date Time Temp Pulse Resp B/P B/P Pulse O2 O2 Flow FiO2 Mean Ox Delivery Rate 06/23 1107 94 Nasal 3.0L Cannula 06/23 0800 92 Nasal 3.0L Cannula 06/23 0710 98.1 80 18 138/50 92 Nasal 3.0L Cannula 06/23 0000 Nasal 3.0L Cannula 06/22 2201 98.1 88 18 160/60 92 06/22 2103 93 Nasal 3.0L Cannula 06/22 1600 93 Nasal 3.0L Cannula Intake & Output 06/23 1600 06/23 0800 06/23 0000 Intake Total 665 980 300 Output Total 700 1800 700 Balance -35 -820 -400 Intake, Blood 350 Product Intake, IV 315 980 Intake, Oral 0 300 Number Bowel Movements Output, Urine 700 1800 700 Patient 245 lb 220 lb Weight Weight Bed scale Measurement Method Physical Exam General Appearance: Alert, Oriented X3, Cooperative, Mild Distress Skin: No Rashes, No Breakdown, No Significant Lesion Skin Temp/Moisture Exam: Warm/Dry Sepsis Skin Exam (color): Normal for Ethnicity HEENT: Atraumatic Cardiovascular: Regular Rate, Normal S1, Normal S2, No Murmurs Lungs: Clear to Auscultation, Normal Air Movement Abdomen: Normal Bowel Sounds, Soft, No Tenderness Extremities: No Clubbing, No Cyanosis, Normal Pulses Current Medications: Current Medications Sig/Suleman Start time Last Medication Dose Route Stop Time Status Admin Acetaminophen 1,000 MG Q6P PRN 06/19 1130 AC 06/23 N/A 1 UNIT IV 0230 Albuterol Sulfate 3 ML BID 06/15 2200 AC 06/23 INH 1104 Ampicillin Sodium/ 3,000 MG Q8H 06/23 1600 AC Sulbactam Sodium IV Sodium Chloride 100 ML Ampicillin Sodium/ 3,000 MG Q12 06/21 2200 DC 06/22 Sulbactam Sodium IV 2218 Sodium Chloride 100 ML Aspirin Buffered 650 MG DAILY 06/13 1000 AC 06/22 PO 0958 Atorvastatin Calcium 40 MG 1700 06/15 1700 AC 06/22 PO 1753 Calcium Carbonate 500 MG DAILY 06/21 1000 AC 06/22 PO 0958 Dextrose/Sodium 1,000 ML Q13H 06/23 0000 AC 06/23 Chloride IV 0115 Docusate Sodium 100 MG BID 06/12 2359 AC 06/22 PO 2218 Furosemide 40 MG DAILY 06/13 1000 AC 06/23 PO 0959 Heparin Sodium 25,000 UNIT Q24H 06/20 1915 DC 06/23 (Porcine) IV 0410 Sodium Chloride 500 ML Hydromorphone HCl 0.2 MG Q6-PRN PRN 06/16 1615 AC 06/23 IV 0350 Insulin Aspart 0 Q4 06/23 0845 SC Insulin Aspart 0 TIDAC/HS 06/18 1615 DC 06/22 AR 1152 Insulin Detemir 30 UNITS BID 06/22 2199 AC 06/22 SC 2219 Insulin Detemir 40 UNITS BID 06/18 2200 DC 06/22 SC 0958 Insulin Human Regular 0 Q6 06/23 0000 DC 06/23 SC 0650 Insulin Human Regular 0 Q6 06/22 1800 DC 06/22 SC 1753 Lidocaine 1 PAT DAILY@0 06/20 1700 AC 06/22 EXT 1754 Melatonin 5 MG AT BEDTIME 06/21 2200 AC 06/22 PO 2220 Nitroglycerin 0.5 GM Q6P PRN 06/15 1830 AC TOP Pregabalin 75 MG BID 06/13 2200 AC 06/22 PO 2219 Tiotropium [place] 1 PUF DAILY 06/14 1000 AC 06/23 INH 1003 Last 24 Hrs of Lab/Drew Results Last 24 Hrs of Labs/Mics: Laboratory Tests 06/23/17 0745: APTT 71 H 06/23/17 0625: Anion Gap 11, Estimated GFR 18 L, BUN/Creatinine Ratio 17.0, CBC w Diff MAN DIFF ORDERED, RBC 2.20 L, MCV 97.7, MCH 32.9 H, RDW 15.5 H, MPV 7.2 L, Gran % 90.0 H, Lymphocytes % 5.3 L, Monocytes % 3.7, Eosinophils % 0.9, Basophils % 0.1, Absolute Granulocytes 26.9 H, Segmented Neutrophils 89 H, Absolute Lymphocytes 1.6, Lymphocytes 8 L, Monocytes 3, Absolute Monocytes 1.1 H, Absolute Eosinophils 0.3, Absolute Basophils 0, Platelet Estimate VERIFIED BY SMEAR, Normocytic RBCs VERIFIED, Normochromic RBCs VERIFIED, PUBS MCHC 33.7 Microbiology 06/23 1308 MISC O.R.: Miscellaneous Culture - CAN Cancelled: OE 06/23 1308 MISC O.R.: Gram Stain - CAN Cancelled: OE 06/23 1308 BODY FLUID: Body Fluid Culture - RECD 06/23 1308 BODY FLUID: Gram Stain - RECD 06/23 130 BODY FLUID: AFB Culture with PCR Identification - RECD 06/23 130 BODY FLUID: AFB Smear Concentration - RECD 06/23 130 BODY FLUID: Fungal Culture - RECD 06/23 0040 URINE ROUT: Urine Culture - RECD Assessment/Plan Assessment: Assessment 61-year-old woman, current smoker with a history of COPD, diabetes type 2 with diabetic neuropathy, left leg DVT status post IVC filter, chronic kidney disease , neuropathy and peripheral vascular disease, status post 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 in September 2016 for cellulitis treated with cefazolin and discharged on Keflex, came for evaluation of chest pain of 4 days' duration associated with shortness of breath. Patient had drainage and Pleurx catheter drain placed on the for question of empyema. Fluid was found to be slightly blood tinged serous grossly. Fluid composition showed elevated WBCs, RBCs, pH 6.4, LDH of 3819. She is on Unasyn. She was found to have extremely elevated white blood cell count on admission of 44. Chest x-ray done after placement on 06/13 showed persistent moderate volume of her right pleural effusion. WBCs continue to be elevated. Patient had repositioning of pigtail catheter and VQ scan done under anesthesia which returned with low to intermediate probability of PE so she was continued on IV heparin. As per cardiothoracic surgery, the patient might be bleeding and suggests discontinuing heparin. However as per cardiology the patient requires anticoagulation for potential PE. Patient has had minimal drainage after repositioning of pigtail catheter. Patient is set to go to operating room today for decortication of lung. We turned off her heparin at 9:30 AM and started one unit of blood of note patient only has one working IV line, she is a hard stick. Also of note it was stated that patient would receive an IVC filter today however patient has an IVC filter that was placed 11 years ago at the time that she had her amputation. Patient today has a hemoglobin of 7.2. Plan #1 Acute hypoxic respiratory failure likely secondary to community-acquired pneumonia, COMPLICATED BY EMPYEMA: She was found to have an empyema which was drained with Pleurx catheter. Fluid was found to be exudative in nature. Catheter drainage was ?650 mL of serous sanguinous fluid from first pigtail catheter placement with minimal drainage after repositioning. Repeat CT of the chest was done under anesthesia today, postoperatively stable, clearly shows complex empyema, compressing most of the lung tissue on the right side. Patient sent for lung decortication today. -Chest x-ray today: Right chest tube in place. Right hydropneumothorax present without shift of midline structures. There is a decrease in the degree of opacification at the lower right hemithorax. -Continue oxygen, nebulizations, trace Unasyn 3 g every 12 to every 8 hours -Follow up post surgery note -Restart heparin after surgery -Recheck CBC at 7 PM #2 Pleuritic chest pain with positive troponins: Likely due to demand ischemia, with AMEYA also contributing to it. -According to Dr. Lucas, if patient has precordial chest pain then can begin NTG paste 1/2 inch Q 6 hours. -According to Dr. Lucas, cardiology, myocardial ischemia cannot be 100% excluded and patient should later have outpatient risk stratification with a stress test. #3 Urinary tract infection: Dirty urine, cultures positive for staph aureus -She has received an adequate course of Vancomycin for a lower urinary tract infection. Currently on Unasyn. Will continue. #4 Right knee pain: Patient notes a chronic moderate right knee pain. -Severe tricompartmental osteoarthritis seen on xray -Pain control with iv tylenol, and Dilaudid. Anemia -Patient had hemoglobin 7.2 today -Today she received 1 unit of blood #5 Insulin-dependent diabetes mellitus, Uncontrolled * Blood sugars are at 140 today * Endocrinology on board, patient was nothing by mouth for surgery today. Sliding scale every 6 hours. * Continue patient on D5 half-normal saline at a rate of 75. #6 Elevated proBNP at 2590. No previous echo on record. * His echo showed good ejection fraction and no obvious wall motion regional abnormalities * Daily I/O and weight checks. #7 Acute kidney injury on chronic kidney disease * Patient has had persistent bicarb deficiency during this stay, has never had this problem before. * Monitory BEP * Avoid nephrotoxins #8 Hyperkalemia * Potassium has normalized. #Diarrhea * Discontinue stool softener * Stool for C. difficile if diarrhea continues 24 hours after stopping stool softener Continuing pain Gave extra dose of Dilantin 0.2 mg Will start Guzman early as patient will require it during surgery and is requesting it now for pain when she frequently has to urinate We will DC Guzman after surgery. Of note patient will be in the ICU recovering postsurgery. -Pain Control with Dilaudid and IV Tylenol -Diabetic diet -DVT prophylaxis with heparin and Alps on right leg -Full code Problem List: 1. Empyema 2. Pneumonia 3. Diabetes mellitus type 2 4. CHRONIC RENAL FAILURE 5. AMEYA (acute kidney injury) Pain Ratin Pain Location: right chest pain continues around surgical site Pain Goal: Pain 4 or less Pain Plan: Dilaudid for pain and IV Tylenol Tomorrow's Labs & Rationales: CBC, BEP
--- NOTE | 2017-06-23 11:01 | Event Note ---
Event Note Event Note: Intervention radiology updated us about IVC filter placement. off note patient has left leg DVT 11 years prior to this admission and IVC filter was placed in 2005. So she doesn't require any IVC filter placement today. We updated Bruno Peter MD. All Her medical records from this admission and prior admissions reflect prior placement of IVC.
--- NOTE | 2017-06-23 11:27 | PN- Infect Dx ---
Subjective Subjective: Afebrile. She complains of discomfort at the site of the chest tube. A Guzman catheter was apparently inserted overnight. She had one loose stool reported yesterday. Objective Last 24 Hrs of Vital Signs/I&O Vital Signs Date Time Temp Pulse Resp B/P B/P Pulse O2 O2 Flow FiO2 Mean Ox Delivery Rate 06/23 1107 94 Nasal 3.0L Cannula 06/23 0710 98.1 80 18 138/50 92 Nasal 3.0L Cannula 06/23 0000 Nasal 3.0L Cannula 06/22 2201 98.1 88 18 160/60 92 06/22 2103 93 Nasal 3.0L Cannula 06/22 1600 93 Nasal 3.0L Cannula 06/22 1433 97.4 79 18 174/70 95 Nasal Cannula Intake & Output 06/23 1600 06/23 0800 06/23 0000 Intake Total 980 300 Output Total 1800 700 Balance -820 -400 Intake, IV 980 Intake, Oral 0 300 Number Bowel Movements Output, Urine 1800 700 Patient 245 lb 220 lb Weight Weight Bed scale Measurement Method Physical Exam Other Physical Findings: She appears anxious but comfortable in no acute distress Lungs decreased breath sounds at the right base; chest tube in place in the right chest with 220 mL output yesterday Heart regular rhythm with no murmur Guzman catheter is in place Results Last 24 Hours of Lab Results: Laboratory Tests 06/23 06/23 06/22 0745 0625 1210 Chemistry Sodium (137 - 145 mmol/L) 141 Potassium (3.5 - 5.1 mmol/L) 4.1 Chloride (98 - 107 mmol/L) 109 H Carbon Dioxide (22 - 30 mmol/L) 20 L Anion Gap (5 - 16) 11 BUN (7 - 17 mg/dL) 46 H Creatinine (0.5 - 1.0 mg/dL) 2.7 H Estimated GFR (>60 ml/min) 18 L BUN/Creatinine Ratio (7 - 25 %) 17.0 Coagulation APTT (25 - 37 SEC) 71 H 74 H Hematology CBC w Diff MAN DIFF ORDERED WBC (4.8 - 10.8 /CUMM) 29.9 H RBC (4.20 - 5.40 /CUMM) 2.20 L Hgb (12.0 - 16.0 G/DL) 7.2 *L Hct (37 - 47 %) 21.5 L MCV (81.0 - 99.0 FL) 97.7 MCH (27.0 - 31.0 PG) 32.9 H RDW (11.5 - 14.5 %) 15.5 H Plt Count (130 - 400 /CUMM) 402 H MPV (7.4 - 10.4 FL) 7.2 L Gran % (42.2 - 75.2 %) 90.0 H Lymphocytes % (20.5 - 51.1 %) 5.3 L Monocytes % (1.7 - 9.3 %) 3.7 Eosinophils % (0 - 5 %) 0.9 Basophils % (0.0 - 2.0 %) 0.1 Absolute Granulocytes (1.4 - 6.5 /CUMM) 26.9 H Segmented Neutrophils (42.2 - 75.2 %) 89 H Absolute Lymphocytes (1.2 - 3.4 /CUMM) 1.6 Lymphocytes (20.5 - 51.1 %) 8 L Monocytes (1.7 - 9.3 %) 3 Absolute Monocytes (0.10 - 0.60 /CUMM) 1.1 H Absolute Eosinophils (0.0 - 0.7 /CUMM) 0.3 Absolute Basophils (0.0 - 0.2 /CUMM) 0 Platelet Estimate (ADEQUATE) VERIFIED BY SMEAR Normocytic RBCs VERIFIED Normochromic RBCs VERIFIED PUBS MCHC (33.0 - 37.0 G/DL) 33.7 Last 24 Hours of Drew Results: Urine culture June 23 pending Assessment/Plan Impression: Stable, with temperatures remaining normal, but with a persistent leukocytosis, presumably secondary to undrained empyema, with the recent CT scan of the chest revealing undrained fluid, for which she is to undergo decortication later today. She remains on Unasyn for an empyema secondary to Haemophilus influenzae , which was isolated from her initial blood cultures, though her pleural fluid culture did not grow. 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 Suggestion: 1. Await decortication later today 2. Remove Guzman catheter postop 3. Stool C. difficile if diarrhea persists 4. Increase Unasyn to 3 g IV every 8 hours
--- NOTE | 2017-06-23 14:32 | PN- Cardiology ---
Subjective Subjective: * Dena continues to complain of right chest dicomfort. She is also short of breath. * creatinine is improved to 2.7 * WBC count remains elevated but is trending down * H/H remains low Objective Vital Signs and I&Os Vital Signs Date Time Temp Pulse Resp B/P B/P Pulse O2 O2 Flow FiO2 Mean Ox Delivery Rate 06/23 1107 94 Nasal 3.0L Cannula 06/23 0800 92 Nasal 3.0L Cannula 06/23 0710 98.1 80 18 138/50 92 Nasal 3.0L Cannula 06/23 0000 Nasal 3.0L Cannula 06/22 2201 98.1 88 18 160/60 92 06/22 2103 93 Nasal 3.0L Cannula 06/22 1600 93 Nasal 3.0L Cannula 06/22 1433 97.4 79 18 174/70 95 Nasal Cannula Intake & Output 06/23 1600 06/23 0800 06/23 0000 06/22 1600 06/22 0800 06/22 0000 Intake Total 665 741 006 6116 485 230 Output Total 700 9930 508 2003 740 870 Balance -35 -820 -400 195 -255 -640 Intake, Blood 350 Product Intake, IV 315 980 725 365 130 Intake, Oral 0 300 750 120 100 Number 2 Bowel Movements Output, Chest 80 140 140 Tube Drainage Output, 30 Drainage Output, Urine 700 6283 358 7843 600 700 Patient 245 lb 220 lb 246 lb Weight Weight Bed scale Chair scale Measurement Method Physical Exam: General: WD/obese female in NAD; alert and oriented x 3 Heart: RRR w/o murmur Lungs: no crackles or wheezing, chest tube on right Extremities: no edema on right, Left AKA Assessment/Plan Assessment/Plan * This obese and inactive female has evidence of lower extremity thrombosis without findings of a true DVT. I suspect that her small rise in cardiac enzymes is related to a PE. A V/Q scan is consistent with this diagnosis. Her low O2 saturation, shortness of breath and pleuritic pain are consistent with this diagnosis although her diagnosis of empyema will also give similar symptoms. She does have an IVC filter which helps but is not 100% reliable for preventing a PE and it does not help with lower extremity thrombosis. Continue IV heparin as tolerated. * In consideration of the patient's multiple risk factors for coronary artery disease myocardial ischemia related to increased myocardial demand cannot be 100 % excluded and the patient should have risk stratification with a stress test at some point in time. In the meantime, continue IV heparin and aspirin. Continue a statin. If precordial chest pain then begin NTG paste 1/2 inch Q 6 hours. * Decortication planned for today. Continue telemetry? Yes
--- NOTE | 2017-06-23 15:09 | RADIOLOGY REPORT ---
EXAMINATION: CHEST 1 VIEW CLINICAL INFORMATION: Chest tube placement. COMPARISON: 06/18/2017. TECHNIQUE: An AP view of the chest is provided. FINDINGS: A right chest tube has been placed. The tip overlies the right apex. There is opacification at the right lung base, likely a mixture of pleural and parenchymal disease. There is a small right hydropneumothorax. There is no shift of midline structures. The cardiac silhouette is stable. The left lung is clear. The osseous structures are unremarkable. IMPRESSION: Right chest tube in place. Right hydropneumothorax present without shift of midline structures. There is a decrease in the degree of opacification at the lower right hemithorax.
[2017-06-23 16:00] VITALS: BP 148/78
--- NOTE | 2017-06-23 16:22 | Event Note ---
Event Note Event Note: Spoke to surgical PA regarding anticoagulation. Dr. Rebolledo does not want the patient on any anticoagulation for 2 days. Patient can get aspirin, but heparin needs to be held for at least 2 days.
--- NOTE | 2017-06-23 17:31 | PN- Thoracic Surgery ---
Subjective Subjective: POC: co pain, dilaudid iv not helping. pt was previously on 80mg oxycontin bid for chronic pain. no sob. worsening pain with inspiration and movement. Objective Vital Signs and I&Os Vital Signs Date Time Temp Pulse Resp B/P B/P Pulse O2 O2 Flow FiO2 Mean Ox Delivery Rate 06/23 1107 94 Nasal 3.0L Cannula 06/23 08 92 Nasal 3.0L Cannula 06/23 0710 98.1 80 18 138/50 92 Nasal 3.0L Cannula 06/23 0000 Nasal 3.0L Cannula 06/22 220 98.1 88 18 160/60 92 06/22 2103 93 Nasal 3.0L Cannula Intake & Output 06/23 1600 06/23 0806/23 0000 06/22 0000 Intake Total 665 987 094 4615 485 230 Output Total 700 0691 064 3864 740 870 Balance -35 -820 -400 195 -255 -640 Intake, Blood 350 Product Intake, IV 315 980 725 365 130 Intake, Oral 0 300 750 120 100 Number 2 Bowel Movements Output, Chest 80 140 140 Tube Drainage Output, 30 Drainage Output, Urine 700 5317 730 7272 600 700 Patient 245 lb 220 lb 246 lb Weight Weight Bed scale Chair scale Measurement Method Physical Exam: wdwn, aox3, in discomfort sitting upright, no resp distress 2 chest tube noted, proximal is clear. distal is with thin bloody drainage. tiny air leak noted. dressings cdi. upper lung is clear, diminished distally with crackles. hear: rrr Results Last 48 Hours of Labs: Laboratory Tests 06/23 06/23 06/23 1709 0745 0625 Chemistry Sodium (137 - 145 mmol/L) Pending 141 Potassium (3.5 - 5.1 mmol/L) Pending 4.1 Chloride (98 - 107 mmol/L) Pending 109 H Carbon Dioxide (22 - 30 mmol/L) Pending 20 L Anion Gap (5 - 16) Pending 11 BUN (7 - 17 mg/dL) Pending 46 H Creatinine (0.5 - 1.0 mg/dL) Pending 2.7 H Estimated GFR (>60 ml/min) 18 L BUN/Creatinine Ratio (7 - 25 %) Pending 17.0 Coagulation APTT (25 - 37 SEC) 71 H Hematology CBC w Diff Pending MAN DIFF ORDERED WBC (4.8 - 10.8 /CUMM) Pending 29.9 H RBC (4.20 - 5.40 /CUMM) Pending 2.20 L Hgb (12.0 - 16.0 G/DL) Pending 7.2 *L Hct (37 - 47 %) Pending 21.5 L MCV (81.0 - 99.0 FL) Pending 97.7 MCH (27.0 - 31.0 PG) Pending 32.9 H RDW (11.5 - 14.5 %) Pending 15.5 H Plt Count (130 - 400 /CUMM) Pending 402 H MPV (7.4 - 10.4 FL) Pending 7.2 L Gran % (42.2 - 75.2 %) 90.0 H Lymphocytes % (20.5 - 51.1 %) 5.3 L Monocytes % (1.7 - 9.3 %) 3.7 Eosinophils % (0 - 5 %) 0.9 Basophils % (0.0 - 2.0 %) 0.1 Absolute Granulocytes (1.4 - 6.5 /CUMM) 26.9 H Segmented Neutrophils (42.2 - 75.2 %) 89 H Absolute Lymphocytes (1.2 - 3.4 /CUMM) 1.6 Lymphocytes (20.5 - 51.1 %) 8 L Monocytes (1.7 - 9.3 %) 3 Absolute Monocytes (0.10 - 0.60 /CUMM) 1.1 H Absolute Eosinophils (0.0 - 0.7 /CUMM) 0.3 Absolute Basophils (0.0 - 0.2 /CUMM) 0 Platelet Estimate (ADEQUATE) VERIFIED BY SMEAR Normocytic RBCs VERIFIED Normochromic RBCs VERIFIED PUBS MCHC (33.0 - 37.0 G/DL) Pending 33.7 06/22 06/22 06/22 1210 0658 0030 Chemistry Sodium (137 - 145 mmol/L) 140 Potassium (3.5 - 5.1 mmol/L) 4.2 Chloride (98 - 107 mmol/L) 110 H Carbon Dioxide (22 - 30 mmol/L) 18 L Anion Gap (5 - 16) 12 BUN (7 - 17 mg/dL) 55 H Creatinine (0.5 - 1.0 mg/dL) 2.8 H Estimated GFR (>60 ml/min) 17 L BUN/Creatinine Ratio (7 - 25 %) 19.6 Coagulation APTT (25 - 37 SEC) 74 H 78 H Hematology CBC w Diff MAN DIFF ORDERED WBC (4.8 - 10.8 /CUMM) 29.6 H RBC (4.20 - 5.40 /CUMM) 2.28 L Hgb (12.0 - 16.0 G/DL) 7.5 L Hct (37 - 47 %) 22.1 L MCV (81.0 - 99.0 FL) 97.2 MCH (27.0 - 31.0 PG) 33.0 H RDW (11.5 - 14.5 %) 15.1 H Plt Count (130 - 400 /CUMM) 399 MPV (7.4 - 10.4 FL) 7.3 L Gran % (42.2 - 75.2 %) 91.4 H Lymphocytes % (20.5 - 51.1 %) 5.2 L Monocytes % (1.7 - 9.3 %) 2.5 Eosinophils % (0 - 5 %) 0.8 Basophils % (0.0 - 2.0 %) 0.1 Absolute Granulocytes (1.4 - 6.5 /CUMM) 27.1 H Absolute Lymphocytes (1.2 - 3.4 /CUMM) 1.5 Absolute Monocytes (0.10 - 0.60 /CUMM) 0.7 H Absolute Eosinophils (0.0 - 0.7 /CUMM) 0.2 Absolute Basophils (0.0 - 0.2 /CUMM) 0 Platelet Estimate (ADEQUATE) ADEQUATE Hypochromic-Microcytic 1+ Anisocytosis 1+ PUBS MCHC (33.0 - 37.0 G/DL) 34.0 Recent Imaging Studies: PATIENT: MEKHI VICENTE PRESENT AGE: 61 PATIENT ACCOUNT NO: [id number] : 53 LOCATION: [facility] ORDERING PHYSICIAN: Steven Rebolledo Jr., MD SERVICE DATE: 06/23/17 EXAM TYPE: RAD - XRY-CHEST XRAY, SINGLE VIEW EXAMINATION: CHEST 1 VIEW CLINICAL INFORMATION: Chest tube placement. COMPARISON: 06/18/2017. TECHNIQUE: An AP view of the chest is provided. FINDINGS: A right chest tube has been placed. The tip overlies the right apex. There is opacification at the right lung base, likely a mixture of pleural and parenchymal disease. There is a small right hydropneumothorax. There is no shift of midline structures. The cardiac silhouette is stable. The left lung is clear. The osseous structures are unremarkable. IMPRESSION: Right chest tube in place. Right hydropneumothorax present without shift of midline structures. There is a decrease in the degree of opacification at the lower right hemithorax. DICTATED BY: Messi Azar MD DATE/TIME DICTATED:06/23/171500 PEANUT CLEANER:FARZANA DATE/TIME TRANSCRIBED:06/23/171500 CONFIDENTIAL, DO NOT COPY WITHOUT APPROPRIATE AUTHORIZATION. <Electronically signed in Other Vendor System> SIGNED BY: Messi Azar MD 06/23/17 4328 Assessment/Plan Assessment/Plan POD #0 sp R side open thoracoscopy for drainage of empyema with chest tubes X2 follow OR cultures cont Unasyn per ID check labs supplemental O2 adjust pain meds, needs higher doses due to hx of chronic opioid therapy. Regular Diet hold heparin for 2 days am CXR Chest tube x2 to LWS
[2017-06-23 17:40] LABS: ABSOLUTE BASOPHIL COUNT 0 /CUMM (0.0-0.2); ABSOLUTE EOSINOPHIL COUNT 0 /CUMM (0.0-0.7); ABSOLUTE GRANULOCYTE CT 32.4 /CUMM (1.4-6.5); ABSOLUTE LYMPH COUNT 0.6 /CUMM (1.2-3.4); ABSOLUTE MONOCYTE COUNT 0.6 /CUMM (0.10-0.60); BASOPHIL % 0 % (0.0-2.0); MEAN CORPUSCULAR HGB CONC 33.8 G/DL (33.0-37.0)
[2017-06-23 17:49] LABS: EOSINOPHIL % 0.1 % (0-5); GRANULOCYTE % 96.3 % (42.2-75.2); MEAN CORPUSCULAR HGB 31.6 PG (27.0-31.0); MEAN CORPUSCULAR VOLUME 93.6 FL (81.0-99.0); PLATELET COUNT 368 /CUMM (130-400); RBC DISTRIBUTION WIDTH 17.6 % (11.5-14.5)
[2017-06-23 17:56] LABS: HEMATOCRIT 27.3 % (37-47); RED BLOOD CELL CT 2.92 /CUMM (4.20-5.40); WHITE BLOOD CELL COUNT 33.7 /CUMM (4.8-10.8)
--- NOTE | 2017-06-23 18:32 | Operative Report ---
Operative/Inv Procedure Report Surgery Date: 06/23/17 Name of Procedure: Diagnostic thoracoscopy, right thoracotomy with drainage of empyema and decortication of right lower lobe Pre-Operative Diagnosis: Right empyema with hemothorax Post-Operative Diagnosis: Same with trapped right lower lobe Estimated Blood Loss: 50ml to 100ml Surgeon/Gold Burnisher: Steven Rebolledo MD Anesthesia: general endotracheal tube Operative/Procedure Note Note: After placement of monitoring lines and induction of general anesthesia the double-lumen endotracheal tube was appropriately positioned with fiberoptic bronchoscopy. The patient was placed in the left lateral decubitus position and her right chest was prepped and draped in a sterile fashion. An access thoracostomy site was made in the midaxillary line and the trocar and scope were introduced. A grand total of 1400 mL of serosanguineous fluid that was somewhat cloudy was drained from the thoracic cavity. The camera was introduced and the thoracic cavity was explored. There were significant dense adhesions circumferentially in the lower lobe and the costophrenic angle. Attempts were made to take this down with camera instrumentation and there was a degree of oozing from the pleural surface. It was also apparent that the right lower lobe was somewhat restricted because of a significant fibrinopurulent reactive process. Some time was spent trying to free up adhesions and the lung but it was felt that it would be inadequate to completely eliminate the potential space. The thoracostomy site was then converted to a small lateral thoracotomy incision and the chest was entered the interspace directly below which was probably the seventh interspace. Manual debridement allowed for mobilization of the right lower lobe completely and some reactive pleural process was removed from its surface. There were multiple pockets of loculation extending superiorly and anteriorly is these were also drained completely. 2 chest tubes were used to drain the chest one placed anteriorly apically and one placed posteriorly and towards the costophrenic angle. The ribs were reapproximated pericostal sutures. The lung was very aggressively ventilated with hand ventilation and it appeared to fill the thoracic cavity fairly well with good reexpansion now of the right lower lobe. The wound was then closed with running Vicryl suture followed by surgical skin clips. The patient tolerated procedure well and was brought to the recovery room awake and extubated in stable condition. CC: Saúl RODAS,Wallace
[2017-06-24] VITALS: BP 140/70
[2017-06-24 05:18] LABS: ABSOLUTE BASOPHIL COUNT 0 /CUMM (0.0-0.2); ABSOLUTE EOSINOPHIL COUNT 0.1 /CUMM (0.0-0.7); ABSOLUTE GRANULOCYTE CT 29.7 /CUMM (1.4-6.5); ABSOLUTE LYMPH COUNT 1.1 /CUMM (1.2-3.4); ABSOLUTE MONOCYTE COUNT 1.2 /CUMM (0.10-0.60); BASOPHIL % 0 % (0.0-2.0); EOSINOPHIL % 0.2 % (0-5); GRANULOCYTE % 92.5 % (42.2-75.2); MEAN CORPUSCULAR HGB 31.8 PG (27.0-31.0); MEAN CORPUSCULAR HGB CONC 33.9 G/DL (33.0-37.0); MEAN CORPUSCULAR VOLUME 93.8 FL (81.0-99.0); MEAN PLATELET VOLUME 7.3 FL (7.4-10.4); PLATELET COUNT 369 /CUMM (130-400); RBC DISTRIBUTION WIDTH 18.3 % (11.5-14.5); RED BLOOD CELL CT 2.88 /CUMM (4.20-5.40)
[2017-06-24 05:45] LABS: WHITE BLOOD CELL COUNT 32.2 /CUMM (4.8-10.8)
--- NOTE | 2017-06-24 07:51 | PN- Diabetes ---
Assessment/Plan Assessment: This 61-year-old woman with a known history of type 2 diabetes mellitus associated with morbid obesity and with severe complications including a left below the knee amputation diabetic neuropathy and chronic kidney diseases stage 4 presented to the emergency room with respiratory failure. The patient underwent right thoracotomy with drainage of an empyema. A great deal of loculation of fibrosis was found apparently according to the operative note. The patient is on Levemir 30 units twice a day. She is awake and alert this morning. She feels she may be able to eat. Her blood sugar this morning is 126 and the laboratory during the night her blood sugars were 28 and 146. Plan: Suggest reduce Levemir to 26 units twice a day. Change sliding-scale NovoLog before meals sliding scale NovoLog before meals should be 100-150 give 4 units NovoLog, 151-200 give 5 units NovoLog, 201-250 give 6 units NovoLog, 251-300 give 8 units NovoLog, 301-350 give 10 units NovoLog, 351-400 give 12 units NovoLog. A separate bedtime sliding-scale NovoLog should be written. Sliding scale NovoLog at bedtime should be less than 250 give no insulin, 251-300 give 2 units NovoLog, 301-350 give 3 units NovoLog, 351-400 give 4 units NovoLog. If the patient is able to take fluids and eat adequately her IV fluids can be Hep-Lock. Subjective Subjective: pain right chest Objective Last 24 Hrs of Vital Signs/I&O Vital Signs Date Time Temp Pulse Resp B/P B/P Pulse O2 O2 Flow FiO2 Mean Ox Delivery Rate 06/24 0400 95 Nasal 3.0L Cannula 06/24 0104 96 Nasal 3.0L Cannula 06/24 0000 96 Nasal 3.0L Cannula 06/24 0000 97.4 76 21 140/70 96 Nasal 3.0L Cannula 06/23 1999 96 Nasal 3.0L Cannula 06/23 195 93 Nasal 3.0L Cannula 06/23 1600 94 Nasal 3.0L Cannula 06/23 1600 98.2 71 20 148/78 94 Nasal 3.0L Cannula 06/23 1107 94 Nasal 3.0L Cannula 06/23 0800 92 Nasal 3.0L Cannula Intake & Output 06/24 0800 06/24 0000 06/23 1600 Intake Total 1093 1120 665 Output Total 525 1235 700 Balance 568 -115 -35 Intake, Blood 350 Product Intake, IV 493 370 315 Intake, Oral 600 750 Number 0 Bowel Movements Output, Chest 125 500 Tube Drainage Output, Urine 400 735 700 Patient 245 lb Weight Weight Bed scale Measurement Method Vital Signs Date Time Temp Pulse Resp B/P B/P Pulse O2 O2 Flow FiO2 Mean Ox Delivery Rate 06/24 0400 95 Nasal 3.0L Cannula 06/24 0104 96 Nasal 3.0L Cannula 06/24 0000 96 Nasal 3.0L Cannula 06/24 0000 97.4 76 21 140/70 96 Nasal 3.0L Cannula 06/23 2000 96 Nasal 3.0L Cannula 06/23 1959 93 Nasal 3.0L Cannula 06/23 1600 94 Nasal 3.0L Cannula 06/23 1600 98.2 71 20 148/78 94 Nasal 3.0L Cannula 06/23 1107 94 Nasal 3.0L Cannula 06/23 0800 92 Nasal 3.0L Cannula Intake & Output 06/24 0800 06/24 0000 06/23 1600 Intake Total 1093 1120 665 Output Total 525 1235 700 Balance 568 -115 -35 Intake, Blood 350 Product Intake, IV 493 370 315 Intake, Oral 600 750 Number 0 Bowel Movements Output, Chest 125 500 Tube Drainage Output, Urine 400 735 700 Patient 245 lb Weight Weight Bed scale Measurement Method Physical Exam General Appearance: alert, awake, anxious Head: normal appearance Neck: normal inspection Respiratory: decreased breath sounds, right base. 2 chest tubes are present Cardiovascular: regular rate/rhythm Extremities: left BKA Current Medications: Current Medications Sig/Suleman Start time Last Medication Dose Route Stop Time Status Admin Acetaminophen 1,000 MG .STK-MED ONE 06/23 1133 DC IV 06/23 1134 Acetaminophen 1,000 MG Q6P PRN 06/19 1130 AC 06/23 N/A 1 UNIT IV 0230 Albuterol Sulfate 3 ML Q4 06/23 1800 AC 06/24 INH 0531 Albuterol Sulfate 3 ML BID 06/15 2200 DC 06/23 INH 1104 Ampicillin Sodium/ 3,000 MG Q8H 06/23 1600 AC 06/24 Sulbactam Sodium IV 0031 Sodium Chloride 100 ML Ampicillin Sodium/ 3,000 MG Q12 06/21 2200 DC 06/22 Sulbactam Sodium IV 2218 Sodium Chloride 100 ML Aspirin Buffered 650 MG DAILY 06/13 1000 AC 06/22 PO 0958 Atorvastatin Calcium 40 MG 1700 12/25 1700 AC 06/23 PO 1653 Calcium Carbonate 500 MG DAILY 06/21 1000 AC 06/22 PO 0958 Cefazolin Sodium 2 GM IQ8 06/23 1600 DC 06/23 N/A 1 UNIT IV 06/24 0029 2333 Dextrose/Sodium 1,000 ML Q20H 06/23 1730 AC 06/23 Chloride IV 2117 Dextrose/Sodium 1,000 ML Q13H 06/23 0000 DC 06/23 Chloride IV 0115 Docusate Sodium 100 MG BID 06/12 2359 AC 06/22 PO 2218 Fentanyl Citrate 250 MCG .STK-MED ONE 06/23 1151 DC IM 06/23 1152 Fentanyl Citrate 250 MCG .STK-MED ONE 06/23 1133 DC IM 06/23 1134 Furosemide 40 MG DAILY 06/13 1000 AC 06/23 PO 0959 Heparin Sodium 25,000 UNIT Q24H 06/20 1915 DC 06/23 (Porcine) IV 0410 Sodium Chloride 500 ML Hydromorphone HCl 1.5 MG Q2 HRS NEEDED PRN 06/23 1730 AC 06/24 IV 0601 Hydromorphone HCl 1 MG Q2-3 HRS NEEDED.. 06/23 1600 DC 06/23 IV 1625 Hydromorphone HCl 0.4 MG Q4P PRN 06/23 1545 DC IV Hydromorphone HCl 0.2 MG Q4P PRN 06/23 1545 DC IV Hydromorphone HCl 0.2 MG Q6-PRN PRN 06/16 1615 DC 06/23 IV 0350 Insulin Aspart 0 Q4 06/23 2200 DC SC Insulin Aspart 0 Q4 06/23 1845 AC 06/23 SC 2110 Insulin Aspart 0 TIDAC/HS 06/23 1615 DC SC Insulin Aspart 0 Q4 06/23 0845 DC SC Insulin Detemir 30 UNITS BID 06/22 2200 AC 06/23 SC 2110 Insulin Human Regular 0 Q6 06/23 0000 DC 06/23 SC 0650 Lidocaine 1 PAT DAILY@1700 06/20 1700 AC 06/23 EXT 1959 Magnesium Sulfate 1 GM ONCE ONE 06/24 0545 AC 06/24 Dextrose/Water 100 ML IV 06/24 0944 0601 Melatonin 5 MG AT BEDTIME 06/21 2200 AC 06/23 PO 2109 Midazolam HCl 2 MG .STK-MED ONE 06/23 1134 DC IM 06/23 1135 Nitroglycerin 0.5 GM Q6P PRN 06/15 1830 AC TOP Oxycodone HCl 10 MG Q4P PRN 06/23 1730 AC PO Oxycodone HCl 20 MG Q4P PRN 06/23 1730 AC 06/24 PO 0512 Oxycodone HCl 5 MG Q4P PRN 06/23 1600 DC PO Oxycodone HCl 10 MG Q4P PRN 06/23 1600 DC 06/23 PO 1651 Pregabalin 75 MG BID 06/13 2200 AC 06/23 PO 2110 Tiotropium [place] 1 PUF DAILY 06/14 1000 AC 06/23 INH 1003 Current Medications Sig/Suleman Start time Last Medication Dose Route Stop Time Status Admin Acetaminophen 1,000 MG .STK-MED ONE 06/23 1133 DC IV 06/23 1134 Acetaminophen 1,000 MG Q6P PRN 06/19 1130 AC 06/23 N/A 1 UNIT IV 0230 Albuterol Sulfate 3 ML Q4 06/23 1800 AC 06/24 INH 0531 Albuterol Sulfate 3 ML BID 06/15 2200 DC 06/23 INH 1104 Ampicillin Sodium/ 3,000 MG Q8H 06/23 1600 AC 06/24 Sulbactam Sodium IV 0031 Sodium Chloride 100 ML Ampicillin Sodium/ 3,000 MG Q12 06/21 2200 DC 06/22 Sulbactam Sodium IV 2218 Sodium Chloride 100 ML Aspirin Buffered 650 MG DAILY 06/13 1000 AC 06/22 PO 0958 Atorvastatin Calcium 40 MG 1700 06/15 1700 AC 06/23 PO 1653 Calcium Carbonate 500 MG DAILY 06/21 1000 AC 06/22 PO 0958 Cefazolin Sodium 2 GM IQ8 06/23 1600 DC 06/23 N/A 1 UNIT IV 06/24 0029 2333 Dextrose/Sodium 1,000 ML Q20H 06/23 1730 AC 06/23 Chloride IV 2117 Dextrose/Sodium 1,000 ML Q13H 06/23 0000 DC 06/23 Chloride IV 0115 Docusate Sodium 100 MG BID 06/12 2359 AC 06/22 PO 2218 Fentanyl Citrate 250 MCG .STK-MED ONE 06/23 1151 DC IM 06/23 1152 Fentanyl Citrate 250 MCG .STK-MED ONE 06/23 1133 DC IM 06/23 1134 Furosemide 40 MG DAILY 06/13 1000 AC 06/23 PO 0959 Heparin Sodium 25,000 UNIT Q24H 06/20 1915 DC 06/23 (Porcine) IV 0410 Sodium Chloride 500 ML Hydromorphone HCl 1.5 MG Q2 HRS NEEDED PRN 06/23 1730 AC 06/24 IV 0601 Hydromorphone HCl 1 MG Q2-3 HRS NEEDED.. 06/23 1600 DC 06/23 IV 1625 Hydromorphone HCl 0.4 MG Q4P PRN 06/23 1545 DC IV Hydromorphone HCl 0.2 MG Q4P PRN 06/23 1545 DC IV Hydromorphone HCl 0.2 MG Q6-PRN PRN 06/16 1615 DC 06/23 IV 0350 Insulin Aspart 0 Q4 06/23 2200 DC SC Insulin Aspart 0 Q4 06/23 1845 AC 06/23 SC 2110 Insulin Aspart 0 TIDAC/HS 06/23 1615 DC SC Insulin Aspart 0 Q4 06/23 0845 DC SC Insulin Detemir 30 UNITS BID 06/22 2200 AC 06/23 SC 2110 Insulin Human Regular 0 Q6 06/23 0000 DC 06/23 SC 0650 Lidocaine 1 PAT DAILY@1700 06/20 1700 AC 06/23 EXT 1959 Magnesium Sulfate 1 GM ONCE ONE 06/24 0545 AC 06/24 Dextrose/Water 100 ML IV 06/24 0944 0601 Melatonin 5 MG AT BEDTIME 06/21 2200 AC 06/23 PO 2109 Midazolam HCl 2 MG .STK-MED ONE 06/23 1134 DC IM 06/23 1135 Nitroglycerin 0.5 GM Q6P PRN 06/15 1830 AC TOP Oxycodone HCl 10 MG Q4P PRN 06/23 1730 AC PO Oxycodone HCl 20 MG Q4P PRN 06/23 1730 AC 06/24 PO 0512 Oxycodone HCl 5 MG Q4P PRN 06/23 1600 DC PO Oxycodone HCl 10 MG Q4P PRN 06/23 1600 DC 06/23 PO 1651 Pregabalin 75 MG BID 06/13 2200 AC 06/23 PO 2110 Tiotropium [place] 1 PUF DAILY 06/14 1000 AC 06/23 INH 1003 Findings Pertinent Lab/Drew Results: Laboratory Tests 06/24 06/23 6343 2200 Chemistry Sodium (137 - 145 mmol/L) 139 137 Potassium (3.5 - 5.1 mmol/L) 4.4 4.4 Chloride (98 - 107 mmol/L) 107 109 H Carbon Dioxide (22 - 30 mmol/L) 19 L 18 L Anion Gap (5 - 16) 13 10 BUN (7 - 17 mg/dL) 39 H 42 H Creatinine (0.5 - 1.0 mg/dL) 2.8 H 2.6 H Estimated GFR (>60 ml/min) 17 L 19 L BUN/Creatinine Ratio (7 - 25 %) 16.2 Glucose (65 - 99 mg/dL) 126 H Calcium (8.4 - 10.2 mg/dL) 8.6 Phosphorus (2.5 - 4.5 mg/dL) 6.7 H Magnesium (1.6 - 2.3 mg/dL) 1.6 Total Bilirubin (0.2 - 1.3 mg/dL) 0.3 AST (14 - 36 U/L) 29 ALT (9 - 52 U/L) 48 Albumin (3.5 - 5.0 g/dL) 2.5 L Hematology CBC w Diff MAN DIFF ORDERED MAN DIFF ORDERED WBC (4.8 - 10.8 /CUMM) 32.2 *H 33.7 *H RBC (4.20 - 5.40 /CUMM) 2.88 L 2.92 L Hgb (12.0 - 16.0 G/DL) 9.1 L 9.2 L Hct (37 - 47 %) 27.0 L 27.3 L MCV (81.0 - 99.0 FL) 93.8 93.6 MCH (27.0 - 31.0 PG) 31.8 H 31.6 H RDW (11.5 - 14.5 %) 18.3 H 17.6 H Plt Count (130 - 400 /CUMM) 369 368 MPV (7.4 - 10.4 FL) 7.3 L 7.0 L Gran % (42.2 - 75.2 %) 92.5 H 96.3 H Lymphocytes % (20.5 - 51.1 %) 3.4 L 1.8 L Monocytes % (1.7 - 9.3 %) 3.9 1.8 Eosinophils % (0 - 5 %) 0.2 0.1 Basophils % (0.0 - 2.0 %) 0 0 Absolute Granulocytes (1.4 - 6.5 /CUMM) 29.7 H 32.4 H Segmented Neutrophils (42.2 - 75.2 %) 94 H Absolute Lymphocytes (1.2 - 3.4 /CUMM) 1.1 L 0.6 L Lymphocytes (20.5 - 51.1 %) 1 L Monocytes (1.7 - 9.3 %) 5 Absolute Monocytes (0.10 - 0.60 /CUMM) 1.2 H 0.6 Absolute Eosinophils (0.0 - 0.7 /CUMM) 0.1 0 Absolute Basophils (0.0 - 0.2 /CUMM) 0 0 Platelet Estimate (ADEQUATE) ADEQUATE ADEQUATE Polychromasia 1+ Basophilic Stippling SLIGHT Anisocytosis 1+ 1+ Stomatocytes 1+ PUBS MCHC (33.0 - 37.0 G/DL) 33.9 33.8
[2017-06-24 08:00] VITALS: BP 160/80
--- NOTE | 2017-06-24 08:18 | PN- Pulmonary ---
Subjective HPI/Critical Care Issues: Patient is status post thoracotomy and evacuation of pleural fluid and hemopneumothorax Objective Current Medications: Current Medications Sig/Suleman Start time Last Medication Dose Route Stop Time Status Admin Acetaminophen 1,000 MG .STK-MED ONE 06/23 1133 DC IV 06/23 1134 Acetaminophen 1,000 MG Q6P PRN 06/19 1130 AC 06/23 N/A 1 UNIT IV 0230 Albuterol Sulfate 3 ML Q4 06/23 1800 AC 06/24 INH 0808 Albuterol Sulfate 3 ML BID 06/15 2200 DC 06/23 INH 1104 Ampicillin Sodium/ 3,000 MG Q8H 06/23 1600 AC 06/24 Sulbactam Sodium IV 0804 Sodium Chloride 100 ML Ampicillin Sodium/ 3,000 MG Q12 06/21 2200 DC 06/22 Sulbactam Sodium IV 2218 Sodium Chloride 100 ML Aspirin Buffered 650 MG DAILY 06/13 1000 AC 06/22 PO 0958 Atorvastatin Calcium 40 MG 1700 06/15 1700 AC 06/23 PO 1653 Calcium Carbonate 500 MG DAILY 06/21 1000 AC 06/22 PO 0958 Cefazolin Sodium 2 GM IQ8 06/23 1600 DC 06/23 N/A 1 UNIT IV 06/24 0029 2333 Dextrose/Sodium 1,000 ML Q20H 06/23 1730 AC 06/23 Chloride IV 2117 Dextrose/Sodium 1,000 ML Q13H 06/23 0000 DC 06/23 Chloride IV 0115 Docusate Sodium 100 MG BID 06/12 2359 AC 06/22 PO 2218 Fentanyl Citrate 250 MCG .STK-MED ONE 06/23 1151 DC IM 06/23 1152 Fentanyl Citrate 250 MCG .STK-MED ONE 06/23 1133 DC IM 06/23 1134 Furosemide 40 MG DAILY 06/13 1000 AC 06/23 PO 0959 Heparin Sodium 25,000 UNIT Q24H 06/20 1915 DC 06/23 (Porcine) IV 0410 Sodium Chloride 500 ML Hydromorphone HCl 1.5 MG Q2 HRS NEEDED PRN 06/23 1730 AC 06/24 IV 0803 Hydromorphone HCl 1 MG Q2-3 HRS NEEDED.. 06/23 1600 DC 06/23 IV 1625 Hydromorphone HCl 0.4 MG Q4P PRN 06/23 1545 DC IV Hydromorphone HCl 0.2 MG Q4P PRN 06/23 1545 DC IV Hydromorphone HCl 0.2 MG Q6-PRN PRN 06/16 1615 DC 06/23 IV 0350 Insulin Aspart 0 Q4 06/23 2200 DC SC Insulin Aspart 0 Q4 06/23 1845 AC 06/23 SC 2110 Insulin Aspart 0 TIDAC/HS 06/23 1615 DC SC Insulin Aspart 0 Q4 06/23 0845 DC SC Insulin Detemir 30 UNITS BID 06/22 2200 AC 06/23 SC 2110 Insulin Human Regular 0 Q6 06/23 0000 DC 06/23 SC 0650 Lidocaine 1 PAT DAILY@1700 06/20 1700 AC 06/23 EXT 1959 Magnesium Sulfate 1 GM ONCE ONE 06/24 0545 AC 06/24 Dextrose/Water 100 ML IV 06/24 0944 0601 Melatonin 5 MG AT BEDTIME 06/21 2200 AC 06/23 PO 2109 Midazolam HCl 2 MG .STK-MED ONE 06/23 1134 DC IM 06/23 1135 Nitroglycerin 0.5 GM Q6P PRN 06/15 1830 AC TOP Oxycodone HCl 10 MG Q4P PRN 06/23 1730 AC PO Oxycodone HCl 20 MG Q4P PRN 06/23 1730 AC 06/24 PO 0512 Oxycodone HCl 5 MG Q4P PRN 06/23 1600 DC PO Oxycodone HCl 10 MG Q4P PRN 06/23 1600 DC 06/23 PO 1651 Pregabalin 75 MG BID 06/13 2200 AC 06/23 PO 2110 Tiotropium [place] 1 PUF DAILY 06/14 1000 AC 06/23 INH 1003 Vital Signs & I&O Last 24 Hrs of Vitals and I&O: Vital Signs Date Time Temp Pulse Resp B/P B/P Pulse O2 O2 Flow FiO2 Mean Ox Delivery Rate 06/24 0400 95 Nasal 3.0L Cannula 06/24 0104 96 Nasal 3.0L Cannula 06/24 0000 96 Nasal 3.0L Cannula 06/24 0000 97.4 76 21 140/70 96 Nasal 3.0L Cannula 06/23 1999 96 Nasal 3.0L Cannula 06/23 195 93 Nasal 3.0L Cannula 06/23 1600 94 Nasal 3.0L Cannula 06/23 1600 98.2 71 20 148/78 94 Nasal 3.0L Cannula 06/23 1107 94 Nasal 3.0L Cannula Intake & Output 06/24 1600 06/24 0800 06/24 0000 Intake Total 1093 1120 Output Total 525 1235 Balance 568 -115 Intake, IV 493 370 Intake, Oral 600 750 Number 0 Bowel Movements Output, Chest 125 500 Tube Drainage Output, Urine 400 735 Since saturation 3 L 95% exam of her chest continues show diminished breath sounds at the right base cardiac exam shows regular S1 and S2 without murmurs Impression/Plan Impression/Plan Impression/Plan: 61-year-old with right-sided empyema secondary to community-acquired pneumonia with associated sepsis. Patient has persistent loculated effusion and leukocytosis complicated by DVT now status post evacuation of empyema and hemothorax Recommendations: Pulmonary toilet and incentive spirometry. Follow up on cultures. If anticoagulation is to be held would pursue IVC filter in view of DVT bedrest and surgery.
--- NOTE | 2017-06-24 08:23 | RADIOLOGY REPORT ---
EXAMINATION: XR PORTABLE CHEST CLINICAL INFORMATION: Empyema status post decortication. COMPARISON: 06/23/2017 TECHNIQUE: Portable frontal view of the chest was obtained. FINDINGS: Right apical chest tube remains in place. There is overall similar appearance to the small right hydropneumothorax. There are low lung volumes with ongoing consolidative and patchy airspace opacities in the right greater than left lung base. No left-sided pneumothorax. Cardiomediastinal silhouette appears enlarged, this is stable. IMPRESSION: Overall stable appearance of the right-sided hydropneumothorax with right apical chest tube in place. Persistent right lung consolidative and patchy airspace opacities.
--- NOTE | 2017-06-24 09:42 | PN- Resident CRCU ---
Subjective HPI/CRCU Issues: POD1 sp R thoracotomy/decortication for empyema In ICU for close monitoring 24 Hour Events: no issues noted overnight. afebrile, sitting in bed and having her breakfast. starting complaining of pain after she coughed. cxr 06/24/17 FINDINGS: Right apical chest tube remains in place. There is overall similar appearance to the small right hydropneumothorax. There are low lung volumes with ongoing consolidative and patchy airspace opacities in the right greater than left lung base. No left-sided pneumothorax. Cardiomediastinal silhouette appears enlarged, this is stable. Objective Vital Signs & I&O Last 8 Hrs of Vitals and I&O: Intake & Output 06/24 1600 06/24 0800 06/24 0000 Intake Total 1034 1093 1120 Output Total 262 402 1653 Balance 314 568 -115 Intake, IV 434 493 370 Intake, Oral 600 600 750 Number 0 Bowel Movements Output, Chest 120 125 500 Tube Drainage Output, Urine 600 400 735 Patient 244 lb Weight Weight Bed scale Measurement Method Laboratory Tests 06/24 06/23 0355 1709 Chemistry Sodium (137 - 145 mmol/L) 139 137 Potassium (3.5 - 5.1 mmol/L) 4.4 4.4 Chloride (98 - 107 mmol/L) 107 109 H Carbon Dioxide (22 - 30 mmol/L) 19 L 18 L Anion Gap (5 - 16) 13 10 BUN (7 - 17 mg/dL) 39 H 42 H Creatinine (0.5 - 1.0 mg/dL) 2.8 H 2.6 H Estimated GFR (>60 ml/min) 17 L 19 L BUN/Creatinine Ratio (7 - 25 %) 16.2 Glucose (65 - 99 mg/dL) 126 H Calcium (8.4 - 10.2 mg/dL) 8.6 Phosphorus (2.5 - 4.5 mg/dL) 6.7 H Magnesium (1.6 - 2.3 mg/dL) 1.6 Total Bilirubin (0.2 - 1.3 mg/dL) 0.3 AST (14 - 36 U/L) 29 ALT (9 - 52 U/L) 48 Albumin (3.5 - 5.0 g/dL) 2.5 L Hematology CBC w Diff MAN DIFF ORDERED MAN DIFF ORDERED WBC (4.8 - 10.8 /CUMM) 32.2 *H 33.7 *H RBC (4.20 - 5.40 /CUMM) 2.88 L 2.92 L Hgb (12.0 - 16.0 G/DL) 9.1 L 9.2 L Hct (37 - 47 %) 27.0 L 27.3 L MCV (81.0 - 99.0 FL) 93.8 93.6 MCH (27.0 - 31.0 PG) 31.8 H 31.6 H RDW (11.5 - 14.5 %) 18.3 H 17.6 H Plt Count (130 - 400 /CUMM) 369 368 MPV (7.4 - 10.4 FL) 7.3 L 7.0 L Gran % (42.2 - 75.2 %) 92.5 H 96.3 H Lymphocytes % (20.5 - 51.1 %) 3.4 L 1.8 L Monocytes % (1.7 - 9.3 %) 3.9 1.8 Eosinophils % (0 - 5 %) 0.2 0.1 Basophils % (0.0 - 2.0 %) 0 0 Absolute Granulocytes (1.4 - 6.5 /CUMM) 29.7 H 32.4 H Segmented Neutrophils (42.2 - 75.2 %) 94 H Absolute Lymphocytes (1.2 - 3.4 /CUMM) 1.1 L 0.6 L Lymphocytes (20.5 - 51.1 %) 1 L Monocytes (1.7 - 9.3 %) 5 Absolute Monocytes (0.10 - 0.60 /CUMM) 1.2 H 0.6 Absolute Eosinophils (0.0 - 0.7 /CUMM) 0.1 0 Absolute Basophils (0.0 - 0.2 /CUMM) 0 0 Platelet Estimate (ADEQUATE) ADEQUATE ADEQUATE Polychromasia 1+ Basophilic Stippling SLIGHT Anisocytosis 1+ 1+ Stomatocytes 1+ PUBS MCHC (33.0 - 37.0 G/DL) 33.9 33.8 Microbiology Date/Time Procedure - Status Source Growth 06/23 1654 Surveillance Culture - RECD UPPER RESP Intake & Output 06/24 1600 Intake Total 1034 Output Total 720 Balance 314 Intake, IV 434 Intake, Oral 600 Output, Chest 120 Tube Drainage Output, Urine 600 Patient 244 lb Weight Weight Bed scale Measurement Method Exam General Appearance: no apparent distress, alert, awake Respiratory: decreased breath sounds Cardiovascular: regular rate/rhythm Gastrointestinal: normal bowel sounds, soft, non-tender Current Medications: Current Medications Sig/Suleman Start time Last Medication Dose Route Stop Time Status Admin Acetaminophen 1,000 MG Q6P PRN 06/19 1130 AC 06/24 N/A 1 UNIT IV 1430 Albuterol Sulfate 3 ML Q4 06/23 1800 AC 06/24 INH 0808 Albuterol Sulfate 3 ML BID 06/15 2200 DC 06/23 INH 1104 Ampicillin Sodium/ 3,000 MG Q8H 06/23 1600 AC 06/24 Sulbactam Sodium IV 0804 Sodium Chloride 100 ML Aspirin Buffered 650 MG DAILY 06/13 1000 AC 06/22 PO 0958 Atorvastatin Calcium 40 MG 1700 06/15 1700 AC 06/23 PO 1653 Calcium Carbonate 500 MG DAILY 06/21 1000 AC 06/24 PO 0931 Cefazolin Sodium 2 GM IQ8 06/23 1600 DC 06/23 N/A 1 UNIT IV 06/24 0029 2333 Dextrose/Sodium 1,000 ML Q20H 06/23 1730 DC 06/23 Chloride IV 2117 Docusate Sodium 100 MG BID 06/12 2359 AC 06/22 PO 2218 Furosemide 40 MG DAILY 06/13 1000 AC 06/24 PO 0931 Hydromorphone HCl 1.2 MG Q4-6 PRN PRN 06/24 1100 AC 06/24 IV 1507 Hydromorphone HCl 1.5 MG Q2 HRS NEEDED PRN 06/23 1730 DC 06/24 IV 0803 Hydromorphone HCl 1 MG Q2-3 HRS NEEDED.. 06/23 1600 DC 06/23 IV 1625 Insulin Aspart 0 TIDAC/HS 06/24 1200 AC 06/24 SC 1152 Insulin Aspart 0 Q4 06/23 2200 DC SC Insulin Aspart 0 Q4 06/23 1845 DC 06/23 SC 2110 Insulin Aspart 0 TIDAC/HS 06/23 1615 DC SC Insulin Detemir 26 UNITS BID 06/24 2200 AC SC Insulin Detemir 30 UNITS BID 06/22 2200 DC 06/24 SC 0931 Lidocaine 1 PAT DAILY@1700 06/20 1700 AC 06/23 EXT 1959 Magnesium Sulfate 1 GM ONCE ONE 06/24 0545 DC 06/24 Dextrose/Water 100 ML IV 06/24 0944 0601 Melatonin 5 MG AT BEDTIME 06/21 2200 AC 06/23 PO 2109 Nitroglycerin 0.5 GM Q6P PRN 06/15 1830 AC TOP Oxycodone HCl 20 MG .STK-MED ONE 06/24 0453 DC PO 06/24 0454 Oxycodone HCl 20 MG .STK-MED ONE 06/24 0035 DC PO 06/24 0036 Oxycodone HCl 10 MG Q4P PRN 06/23 1730 AC PO Oxycodone HCl 20 MG Q4P PRN 06/23 1730 AC 06/24 PO 1214 Oxycodone HCl 5 MG Q4P PRN 06/23 1600 DC PO Oxycodone HCl 10 MG Q4P PRN 06/23 1600 DC 06/23 PO 1651 Pregabalin 75 MG BID 06/13 2200 AC 06/24 PO 0931 Tiotropium [place] 1 PUF DAILY 06/14 1000 AC 06/24 INH 1051 Impression/Plan Impression/Problem List Impression: 61-year-old woman, current smoker with a history of COPD, diabetes type 2 with diabetic neuropathy, left leg DVT status post IVC filter 11 years prior to admission, chronic kidney disease, neuropathy and peripheral vascular disease, status post left BKA and amputations of the right first and third toes, last admitted to [facility] in September 2016 for cellulitis, current admision for empyema s/p status post right thoracotomy with drainage of an empyema and decortication of the right lower lobe 06/23/2017. problem list: empyema status post right thoracotomy COPD DMT2 DVT CKD Left BKA Plan: thoracic surgery, ID and ENDO on board, apprec recs continue unasyn No AC including ASA for 48 hrs per surgery pain control with oxycodone and morphine accuchecks, ISS, diabetic diet,on levemir continue lasix dvt ppx ALP full code Problem List: 1. Empyema 2. Leukocytosis Pain Ratin Tomorrow's Labs & Rationales: cbc/icu Plan DVT/Prophylaxis: pharmacological Code Status: Full Code
--- NOTE | 2017-06-24 09:58 | PN- Att Addend ---
Attending Addendum Attending Brief Note Patient in bed. Had her procedure yesterday month now in the ICU for closer observation and 2 chest tubes, patient states she has some pain Her vital signs are stable no fever white count 32,200 not a major changes or continue antibiotic therapy as per infectious diseases recommendations continue monitoring the white count temperatures, transfer out of the ICU when surgery clears her. Intake & Output 06/24 1600 06/24 0400 06/23 1600 06/23 0400 06/22 1600 06/22 0400 Intake Total 1093 1120 6856 128 9823 230 Output Total 525 1235 2500 700 2020 870 Balance 568 -115 -855 -400 -60 -640 Intake, Blood 350 Product Intake, IV 234 186 4152 1090 130 Intake, Oral 600 750 0 300 870 100 Number 0 2 Bowel Movements Output, Chest 125 500 220 140 Tube Drainage Output, 30 Drainage Output, Urine 964 717 9375 700 1800 700 Patient 245 lb 220 lb 246 lb Weight Weight Bed scale Chair scale Measurement Method Current Medications Sig/Suleman Start time Last Medication Dose Route Stop Time Status Admin Acetaminophen 1,000 MG .STK-MED ONE 06/23 1133 DC IV 06/23 1134 Acetaminophen 1,000 MG Q6P PRN 06/19 1130 AC 06/23 N/A 1 UNIT IV 0230 Albuterol Sulfate 3 ML Q4 06/23 1800 AC 06/24 INH 0808 Albuterol Sulfate 3 ML BID 06/15 2200 DC 06/23 INH 1104 Ampicillin Sodium/ 3,000 MG Q8H 06/23 1600 AC 06/24 Sulbactam Sodium IV 0804 Sodium Chloride 100 ML Ampicillin Sodium/ 3,000 MG Q12 06/21 2200 DC 06/22 Sulbactam Sodium IV 2218 Sodium Chloride 100 ML Aspirin Buffered 650 MG DAILY 06/13 1000 AC 06/22 PO 0958 Atorvastatin Calcium 40 MG 1700 06/15 1700 AC 06/23 PO 1653 Calcium Carbonate 500 MG DAILY 06/21 1000 AC 06/24 PO 0931 Cefazolin Sodium 2 GM IQ8 06/23 1600 DC 06/23 N/A 1 UNIT IV 06/24 0029 2333 Dextrose/Sodium 1,000 ML Q20H 06/23 1730 AC 06/23 Chloride IV 2117 Dextrose/Sodium 1,000 ML Q13H 06/23 0000 DC 06/23 Chloride IV 0115 Docusate Sodium 100 MG BID 06/12 2359 AC 06/22 PO 2218 Fentanyl Citrate 250 MCG .STK-MED ONE 06/23 1151 DC IM 06/23 1152 Fentanyl Citrate 250 MCG .STK-MED ONE 06/23 1133 DC IM 06/23 1134 Furosemide 40 MG DAILY 06/13 1000 AC 06/24 PO 0931 Hydromorphone HCl 1.5 MG Q2 HRS NEEDED PRN 06/23 1730 AC 06/24 IV 0803 Hydromorphone HCl 1 MG Q2-3 HRS NEEDED.. 06/23 1600 DC 06/23 IV 1625 Hydromorphone HCl 0.4 MG Q4P PRN 06/23 1545 DC IV Hydromorphone HCl 0.2 MG Q4P PRN 06/23 1545 DC IV Hydromorphone HCl 0.2 MG Q6-PRN PRN 06/16 1615 DC 06/23 IV 0350 Insulin Aspart 0 Q4 06/23 2200 DC SC Insulin Aspart 0 Q4 06/23 1845 AC 06/23 SC 2110 Insulin Aspart 0 TIDAC/HS 06/23 1615 DC SC Insulin Aspart 0 Q4 06/23 0845 DC SC Insulin Detemir 30 UNITS BID 06/22 2200 AC 06/24 SC 0931 Lidocaine 1 PAT DAILY@1700 06/20 1700 AC 06/23 EXT 1959 Magnesium Sulfate 1 GM ONCE ONE 06/24 0545 DC 06/24 Dextrose/Water 100 ML IV 06/24 0944 0601 Melatonin 5 MG AT BEDTIME 06/21 2200 AC 06/23 PO 2109 Midazolam HCl 2 MG .STK-MED ONE 06/23 1134 DC IM 06/23 1135 Nitroglycerin 0.5 GM Q6P PRN 06/15 1830 AC TOP Oxycodone HCl 20 MG .STK-MED ONE 06/24 0035 DC PO 06/24 0036 Oxycodone HCl 10 MG Q4P PRN 06/23 1730 AC PO Oxycodone HCl 20 MG Q4P PRN 06/23 1730 AC 06/24 PO 0512 Oxycodone HCl 5 MG Q4P PRN 06/23 1600 DC PO Oxycodone HCl 10 MG Q4P PRN 06/23 1600 DC 06/23 PO 1651 Pregabalin 75 MG BID 06/13 2200 AC 06/24 PO 0931 Tiotropium [place] 1 PUF DAILY 06/14 1000 AC 06/23 INH 1003 Laboratory Tests 06/24/17 0355: Anion Gap 13, Estimated GFR 17 L, Glucose 126 H, Calcium 8.6, Phosphorus 6.7 H, Magnesium 1.6, Total Bilirubin 0.3, AST 29, ALT 48, Albumin 2.5 L, CBC w Diff MAN DIFF ORDERED, RBC 2.88 L, MCV 93.8, MCH 31.8 H, RDW 18.3 H, MPV 7.3 L, Gran % 92.5 H, Lymphocytes % 3.4 L, Monocytes % 3.9, Eosinophils % 0.2, Basophils % 0, Absolute Granulocytes 29.7 H, Segmented Neutrophils 94 H, Absolute Lymphocytes 1.1 L, Lymphocytes 1 L, Monocytes 5, Absolute Monocytes 1.2 H, Absolute Eosinophils 0.1, Absolute Basophils 0, Platelet Estimate ADEQUATE, Polychromasia 1+, Basophilic Stippling SLIGHT, Anisocytosis 1+, Stomatocytes 1+, PUBS MCHC 33.9 06/23/17 1709: Anion Gap 10, Estimated GFR 19 L, BUN/Creatinine Ratio 16.2, CBC w Diff MAN DIFF ORDERED, RBC 2.92 L, MCV 93.6, MCH 31.6 H, RDW 17.6 H, MPV 7.0 L, Gran % 96.3 H, Lymphocytes % 1.8 L, Monocytes % 1.8, Eosinophils % 0.1, Basophils % 0, Absolute Granulocytes 32.4 H, Absolute Lymphocytes 0.6 L, Absolute Monocytes 0.6, Absolute Eosinophils 0, Absolute Basophils 0, Platelet Estimate ADEQUATE, Anisocytosis 1+, PUBS MCHC 33.8 06/23/17 0745: APTT 71 H 06/23/17 0625: Anion Gap 11, Estimated GFR 18 L, BUN/Creatinine Ratio 17.0, CBC w Diff MAN DIFF ORDERED, RBC 2.20 L, MCV 97.7, MCH 32.9 H, RDW 15.5 H, MPV 7.2 L, Gran % 90.0 H, Lymphocytes % 5.3 L, Monocytes % 3.7, Eosinophils % 0.9, Basophils % 0.1, Absolute Granulocytes 26.9 H, Segmented Neutrophils 89 H, Absolute Lymphocytes 1.6, Lymphocytes 8 L, Monocytes 3, Absolute Monocytes 1.1 H, Absolute Eosinophils 0.3, Absolute Basophils 0, Platelet Estimate VERIFIED BY SMEAR, Normocytic RBCs VERIFIED, Normochromic RBCs VERIFIED, PUBS MCHC 33.7 06/22/17 1210: APTT 74 H 06/22/17 0658: Anion Gap 12, Estimated GFR 17 L, BUN/Creatinine Ratio 19.6, CBC w Diff MAN DIFF ORDERED, RBC 2.28 L, MCV 97.2, MCH 33.0 H, RDW 15.1 H, MPV 7.3 L, Gran % 91.4 H, Lymphocytes % 5.2 L, Monocytes % 2.5, Eosinophils % 0.8, Basophils % 0.1, Absolute Granulocytes 27.1 H, Absolute Lymphocytes 1.5, Absolute Monocytes 0.7 H, Absolute Eosinophils 0.2, Absolute Basophils 0, Platelet Estimate ADEQUATE, Hypochromic-Microcytic 1+, Anisocytosis 1+, PUBS MCHC 34.0 06/22/17 0030: APTT 78 H 06/21/17 1242: APTT 42 H Microbiology 06/23 1655 UPPER RESP: Surveillance Culture - RECD 06/23 1309 MISC O.R.: Miscellaneous Culture - CAN Cancelled: OE 06/23 1309 MISC O.R.: Gram Stain - CAN Cancelled: OE 06/23 1309 BODY FLUID: Body Fluid Culture - RES 06/23 1309 BODY FLUID: Gram Stain - RES 06/23 1309 BODY FLUID: AFB Culture with PCR Identification - RECD 06/23 1309 BODY FLUID: AFB Smear Concentration - RECD 06/23 1309 BODY FLUID: Fungal Culture - RECD 06/23 0040 URINE ROUT: Urine Culture - RECD 06/22 1045 STOOL: Clostridium difficile Toxin A & B - CAN Cancelled: SPECIMEN NOT RECEIVED IN LABORATORY Microbiology 06/23 1655 UPPER RESP: Surveillance Culture - RECD 06/23 1309 MISC O.R.: Miscellaneous Culture - CAN Cancelled: OE 06/23 1309 MISC O.R.: Gram Stain - CAN Cancelled: OE 06/23 1309 BODY FLUID: Body Fluid Culture - RES 06/23 1309 BODY FLUID: Gram Stain - RES 06/23 1309 BODY FLUID: AFB Culture with PCR Identification - RECD 06/23 1309 BODY FLUID: AFB Smear Concentration - RECD 06/23 1309 BODY FLUID: Fungal Culture - RECD 06/23 0040 URINE ROUT: Urine Culture - RECD 06/22 1045 STOOL: Clostridium difficile Toxin A & B - CAN Cancelled: SPECIMEN NOT RECEIVED IN LABORATORY Vital Signs Date Time Temp Pulse Resp B/P B/P Pulse O2 O2 Flow FiO2 Mean Ox Delivery Rate 06/24 0900 92 Nasal 3.0L Cannula 06/24 0400 95 Nasal 3.0L Cannula 06/24 0104 96 Nasal 3.0L Cannula 06/24 0000 96 Nasal 3.0L Cannula 06/24 0000 97.4 76 21 140/70 96 Nasal 3.0L Cannula 06/23 1999 96 Nasal 3.0L Cannula 06/23 1959 93 Nasal 3.0L Cannula 06/23 1600 94 Nasal 3.0L Cannula 06/23 1600 98.2 71 20 148/78 94 Nasal 3.0L Cannula 06/23 1107 94 Nasal 3.0L Cannula
--- NOTE | 2017-06-24 11:32 | PN- Infect Dx ---
Subjective Subjective: Afebrile. She complains of pain in the right posterior chest Objective Last 24 Hrs of Vital Signs/I&O Vital Signs Date Time Temp Pulse Resp B/P B/P Pulse O2 O2 Flow FiO2 Mean Ox Delivery Rate 06/24 0900 92 Nasal 3.0L Cannula 06/24 0400 95 Nasal 3.0L Cannula 06/24 0104 96 Nasal 3.0L Cannula 06/24 0000 96 Nasal 3.0L Cannula 06/24 0000 97.4 76 21 140/70 96 Nasal 3.0L Cannula 06/23 1999 96 Nasal 3.0L Cannula 06/23 1958 93 Nasal 3.0L Cannula 06/23 1599 94 Nasal 3.0L Cannula 06/23 1599 98.2 71 20 148/78 94 Nasal 3.0L Cannula Intake & Output 06/24 1600 06/24 0800 06/24 0000 Intake Total 1093 1120 Output Total 525 1235 Balance 568 -115 Intake, IV 493 370 Intake, Oral 600 750 Number 0 Bowel Movements Output, Chest 125 500 Tube Drainage Output, Urine 400 735 Patient 244 lb Weight Weight Bed scale Measurement Method Physical Exam Other Physical Findings: She appears comfortable in no acute distress Lungs improved aeration at the right base; [address], draining serosanguineous fluid Heart regular rhythm with no murmur Extremities chronic venous stasis changes to the right leg Results Last 24 Hours of Lab Results: Laboratory Tests 06/24 06/23 0355 1709 Chemistry Sodium (137 - 145 mmol/L) 139 137 Potassium (3.5 - 5.1 mmol/L) 4.4 4.4 Chloride (98 - 107 mmol/L) 107 109 H Carbon Dioxide (22 - 30 mmol/L) 19 L 18 L Anion Gap (5 - 16) 13 10 BUN (7 - 17 mg/dL) 39 H 42 H Creatinine (0.5 - 1.0 mg/dL) 2.8 H 2.6 H Estimated GFR (>60 ml/min) 17 L 19 L BUN/Creatinine Ratio (7 - 25 %) 16.2 Glucose (65 - 99 mg/dL) 126 H Calcium (8.4 - 10.2 mg/dL) 8.6 Phosphorus (2.5 - 4.5 mg/dL) 6.7 H Magnesium (1.6 - 2.3 mg/dL) 1.6 Total Bilirubin (0.2 - 1.3 mg/dL) 0.3 AST (14 - 36 U/L) 29 ALT (9 - 52 U/L) 48 Albumin (3.5 - 5.0 g/dL) 2.5 L Hematology CBC w Diff MAN DIFF ORDERED MAN DIFF ORDERED WBC (4.8 - 10.8 /CUMM) 32.2 *H 33.7 *H RBC (4.20 - 5.40 /CUMM) 2.88 L 2.92 L Hgb (12.0 - 16.0 G/DL) 9.1 L 9.2 L Hct (37 - 47 %) 27.0 L 27.3 L MCV (81.0 - 99.0 FL) 93.8 93.6 MCH (27.0 - 31.0 PG) 31.8 H 31.6 H RDW (11.5 - 14.5 %) 18.3 H 17.6 H Plt Count (130 - 400 /CUMM) 369 368 MPV (7.4 - 10.4 FL) 7.3 L 7.0 L Gran % (42.2 - 75.2 %) 92.5 H 96.3 H Lymphocytes % (20.5 - 51.1 %) 3.4 L 1.8 L Monocytes % (1.7 - 9.3 %) 3.9 1.8 Eosinophils % (0 - 5 %) 0.2 0.1 Basophils % (0.0 - 2.0 %) 0 0 Absolute Granulocytes (1.4 - 6.5 /CUMM) 29.7 H 32.4 H Segmented Neutrophils (42.2 - 75.2 %) 94 H Absolute Lymphocytes (1.2 - 3.4 /CUMM) 1.1 L 0.6 L Lymphocytes (20.5 - 51.1 %) 1 L Monocytes (1.7 - 9.3 %) 5 Absolute Monocytes (0.10 - 0.60 /CUMM) 1.2 H 0.6 Absolute Eosinophils (0.0 - 0.7 /CUMM) 0.1 0 Absolute Basophils (0.0 - 0.2 /CUMM) 0 0 Platelet Estimate (ADEQUATE) ADEQUATE ADEQUATE Polychromasia 1+ Basophilic Stippling SLIGHT Anisocytosis 1+ 1+ Stomatocytes 1+ PUBS MCHC (33.0 - 37.0 G/DL) 33.9 33.8 Last 24 Hours of Drew Results: OR culture June 23 labeled right chest fluid negative after 1 day Urine culture June 23 negative Recent Imaging Studies: Chest x-ray June 24, personally reviewed, reveals a similar appearance to the small right hydropneumothorax, with ongoing consolidative and patchy airspace opacities in the right, greater than left, lung base Assessment/Plan Impression: Stable, status post right thoracotomy with drainage of an empyema and decortication of the right lower lobe yesterday, with temperatures remaining normal, but with a persistent leukocytosis, on Unasyn for an empyema secondary to Haemophilus influenzae, which was isolated from her initial blood cultures. 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 Suggestion: 1. Remove Guzman catheter 2. Continue Unasyn
[2017-06-24 12:00] VITALS: BP 140/70
--- NOTE | 2017-06-24 12:15 | PN- Thoracic Surgery ---
Subjective Subjective: pain with productive cough. due for pain meds now Objective Vital Signs and I&Os Vital Signs Date Time Temp Pulse Resp B/P B/P Pulse O2 O2 Flow FiO2 Mean Ox Delivery Rate 06/24 09 92 Nasal 3.0L Cannula 06/24 0400 95 Nasal 3.0L Cannula 06/24 0104 96 Nasal 3.0L Cannula 06/24 0000 96 Nasal 3.0L Cannula 06/24 0000 97.4 76 21 140/70 96 Nasal 3.0L Cannula 06/23 1999 96 Nasal 3.0L Cannula 06/23 1958 93 Nasal 3.0L Cannula 06/23 1599 94 Nasal 3.0L Cannula 06/23 1599 98.2 71 20 148/78 94 Nasal 3.0L Cannula Intake & Output 06/24 1600 06/24 0806/24 0000 06/23 1600 06/23 0806/23 0000 Intake Total 1093 1120 665 980 300 Output Total 525 7150 444 0965 700 Balance 568 -115 -35 -820 -400 Intake, Blood 350 Product Intake, IV 493 370 315 980 Intake, Oral 600 750 0 300 Number 0 Bowel Movements Output, Chest 125 500 Tube Drainage Output, Urine 400 769 012 5787 700 Patient 244 lb 245 lb 220 lb Weight Weight Bed scale Bed scale Measurement Method Physical Exam: gen- in pain card- s1s2 pulm- productive cough, course throughout, dressing w serosang staining, CTx2 with serosang drainage. Ct labeled proximal and distal? assuming proximal = apical?, 10cc out since 6am, small al. assuming distal = costophrenic angle?, 60cc out since 6am, no al. both tubes kinking when pt lying on side. extensive ecchymosis to r chest/flank/abd. very ttp Results Last 48 Hours of Labs: Laboratory Tests 06/24 06/23 0355 1709 Chemistry Sodium (137 - 145 mmol/L) 139 137 Potassium (3.5 - 5.1 mmol/L) 4.4 4.4 Chloride (98 - 107 mmol/L) 107 109 H Carbon Dioxide (22 - 30 mmol/L) 19 L 18 L Anion Gap (5 - 16) 13 10 BUN (7 - 17 mg/dL) 39 H 42 H Creatinine (0.5 - 1.0 mg/dL) 2.8 H 2.6 H Estimated GFR (>60 ml/min) 17 L 19 L BUN/Creatinine Ratio (7 - 25 %) 16.2 Glucose (65 - 99 mg/dL) 126 H Calcium (8.4 - 10.2 mg/dL) 8.6 Phosphorus (2.5 - 4.5 mg/dL) 6.7 H Magnesium (1.6 - 2.3 mg/dL) 1.6 Total Bilirubin (0.2 - 1.3 mg/dL) 0.3 AST (14 - 36 U/L) 29 ALT (9 - 52 U/L) 48 Albumin (3.5 - 5.0 g/dL) 2.5 L Hematology CBC w Diff MAN DIFF ORDERED MAN DIFF ORDERED WBC (4.8 - 10.8 /CUMM) 32.2 *H 33.7 *H RBC (4.20 - 5.40 /CUMM) 2.88 L 2.92 L Hgb (12.0 - 16.0 G/DL) 9.1 L 9.2 L Hct (37 - 47 %) 27.0 L 27.3 L MCV (81.0 - 99.0 FL) 93.8 93.6 MCH (27.0 - 31.0 PG) 31.8 H 31.6 H RDW (11.5 - 14.5 %) 18.3 H 17.6 H Plt Count (130 - 400 /CUMM) 369 368 MPV (7.4 - 10.4 FL) 7.3 L 7.0 L Gran % (42.2 - 75.2 %) 92.5 H 96.3 H Lymphocytes % (20.5 - 51.1 %) 3.4 L 1.8 L Monocytes % (1.7 - 9.3 %) 3.9 1.8 Eosinophils % (0 - 5 %) 0.2 0.1 Basophils % (0.0 - 2.0 %) 0 0 Absolute Granulocytes (1.4 - 6.5 /CUMM) 29.7 H 32.4 H Segmented Neutrophils (42.2 - 75.2 %) 94 H Absolute Lymphocytes (1.2 - 3.4 /CUMM) 1.1 L 0.6 L Lymphocytes (20.5 - 51.1 %) 1 L Monocytes (1.7 - 9.3 %) 5 Absolute Monocytes (0.10 - 0.60 /CUMM) 1.2 H 0.6 Absolute Eosinophils (0.0 - 0.7 /CUMM) 0.1 0 Absolute Basophils (0.0 - 0.2 /CUMM) 0 0 Platelet Estimate (ADEQUATE) ADEQUATE ADEQUATE Polychromasia 1+ Basophilic Stippling SLIGHT Anisocytosis 1+ 1+ Stomatocytes 1+ PUBS MCHC (33.0 - 37.0 G/DL) 33.9 33.8 06/23 06/23 0745 0625 Chemistry Sodium (137 - 145 mmol/L) 141 Potassium (3.5 - 5.1 mmol/L) 4.1 Chloride (98 - 107 mmol/L) 109 H Carbon Dioxide (22 - 30 mmol/L) 20 L Anion Gap (5 - 16) 11 BUN (7 - 17 mg/dL) 46 H Creatinine (0.5 - 1.0 mg/dL) 2.7 H Estimated GFR (>60 ml/min) 18 L BUN/Creatinine Ratio (7 - 25 %) 17.0 Coagulation APTT (25 - 37 SEC) 71 H Hematology CBC w Diff MAN DIFF ORDERED WBC (4.8 - 10.8 /CUMM) 29.9 H RBC (4.20 - 5.40 /CUMM) 2.20 L Hgb (12.0 - 16.0 G/DL) 7.2 *L Hct (37 - 47 %) 21.5 L MCV (81.0 - 99.0 FL) 97.7 MCH (27.0 - 31.0 PG) 32.9 H RDW (11.5 - 14.5 %) 15.5 H Plt Count (130 - 400 /CUMM) 402 H MPV (7.4 - 10.4 FL) 7.2 L Gran % (42.2 - 75.2 %) 90.0 H Lymphocytes % (20.5 - 51.1 %) 5.3 L Monocytes % (1.7 - 9.3 %) 3.7 Eosinophils % (0 - 5 %) 0.9 Basophils % (0.0 - 2.0 %) 0.1 Absolute Granulocytes (1.4 - 6.5 /CUMM) 26.9 H Segmented Neutrophils (42.2 - 75.2 %) 89 H Absolute Lymphocytes (1.2 - 3.4 /CUMM) 1.6 Lymphocytes (20.5 - 51.1 %) 8 L Monocytes (1.7 - 9.3 %) 3 Absolute Monocytes (0.10 - 0.60 /CUMM) 1.1 H Absolute Eosinophils (0.0 - 0.7 /CUMM) 0.3 Absolute Basophils (0.0 - 0.2 /CUMM) 0 Platelet Estimate (ADEQUATE) VERIFIED BY SMEAR Normocytic RBCs VERIFIED Normochromic RBCs VERIFIED PUBS MCHC (33.0 - 37.0 G/DL) 33.7 Recent Imaging Studies: CXR: hazy. apical CT in place. difficult to see basilar CT Assessment/Plan Assessment/Plan A- POD1 sp R thoracotomy/decortication for empyema, with uncontrolled pain. Hx chronic pain on oxy 80BID at home. P- -keep CT to [facility]. -recommend home dose narcotics, plus additional to cover for postop pain -titrate o2 as able -no anticoagulation x48hr postop -medical care per primary team -will dw attending Core Measures Venous Thromboembolism VTE Risk Factors Acute Medical Illness No Mechanical VTE Prophylaxis d/t Physical Contraindication No VTE Pharm Prophylaxis d/t NA PharmProphylax ordered
[2017-06-24 16:00] VITALS: BP 132/60
--- NOTE | 2017-06-24 20:11 | PN- Cardiology ---
Subjective Subjective: * Patient is now status post placement of two right sided chest tubes following thoracotomy with drainage of her empyema and right lung decortication. On Unasyn for Haemophilus influenza. Serosanguineus drainage noted. * Less shortness of breath but right sided chest discomfort persists. * creatinine stable at 2.8 * increased but stable WBC count of 32 with stable H/H Objective Vital Signs and I&Os Vital Signs Date Time Temp Pulse Resp B/P B/P Pulse O2 O2 Flow FiO2 Mean Ox Delivery Rate 06/24 1903 95 Nasal 3.0L Cannula 06/24 1600 97.3 70 12 132/60 97 Nasal 3.0L Cannula 06/24 1600 97 Nasal 3.0L Cannula 06/24 1200 94 Nasal 3.0L Cannula 06/24 1200 97.4 89 22 140/70 94 Nasal 2.0L Cannula 06/24 0900 92 Nasal 3.0L Cannula 06/24 0800 98.6 79 17 160/80 94 Nasal 2.0L Cannula 06/24 0800 94 Nasal 3.0L Cannula 06/24 0400 95 Nasal 3.0L Cannula 06/24 0104 96 Nasal 3.0L Cannula 06/24 0000 96 Nasal 3.0L Cannula 06/24 0000 97.4 76 21 140/70 96 Nasal 3.0L Cannula Intake & Output 06/24 1600 06/24 0800 06/24 0000 06/23 1600 06/23 0800 06/23 0000 Intake Total 1034 1093 1120 665 980 300 Output Total 654 699 1589 700 1800 700 Balance 314 568 -115 -35 -820 -400 Intake, Blood 350 Product Intake, IV 434 493 370 315 980 Intake, Oral 600 600 750 0 300 Number 0 Bowel Movements Output, Chest 120 125 500 Tube Drainage Output, Urine 600 400 096 166 7680 700 Patient 244 lb 245 lb 220 lb Weight Weight Bed scale Bed scale Measurement Method Physical Exam: General: WD/obese female in NAD; alert and oriented x 3 Heart: RRR w/o murmur Lungs: no crackles or wheezing, chest tube on right Extremities: no edema on right, Left AKA Assessment/Plan Assessment/Plan * This obese and inactive female has evidence of lower extremity thrombosis without findings of a true DVT. I suspect that her small rise in cardiac enzymes is related to a PE. A V/Q scan is consistent with this diagnosis. Her low O2 saturation, shortness of breath and pleuritic pain are consistent with this diagnosis although her diagnosis of empyema will also give similar symptoms. She does have an IVC filter which helps but is not 100% reliable for preventing a PE and it does not help with lower extremity thrombosis. Anticoagulation being held at present due to recent surgery. * In consideration of the patient's multiple risk factors for coronary artery disease myocardial ischemia related to increased myocardial demand cannot be 100 % excluded and the patient should have risk stratification with a stress test at some point in time. In the meantime, continue IV heparin and aspirin. Continue a statin. If precordial chest pain then begin NTG paste 1/2 inch Q 6 hours. Continue telemetry? Yes
[2017-06-24 23:00] VITALS: BP 154/84
[2017-06-25 06:01] LABS: ABSOLUTE BASOPHIL COUNT 0 /CUMM (0.0-0.2); ABSOLUTE EOSINOPHIL COUNT 0.4 /CUMM (0.0-0.7); ABSOLUTE GRANULOCYTE CT 18.3 /CUMM (1.4-6.5); ABSOLUTE LYMPH COUNT 0.9 /CUMM (1.2-3.4); BASOPHIL % 0.2 % (0.0-2.0); EOSINOPHIL % 1.9 % (0-5); GRANULOCYTE % 88.5 % (42.2-75.2); HEMATOCRIT 23.7 % (37-47); MEAN CORPUSCULAR HGB 32.2 PG (27.0-31.0); MEAN CORPUSCULAR HGB CONC 34.1 G/DL (33.0-37.0); MEAN CORPUSCULAR VOLUME 94.2 FL (81.0-99.0); PLATELET COUNT 337 /CUMM (130-400); RBC DISTRIBUTION WIDTH 18.1 % (11.5-14.5); RED BLOOD CELL CT 2.52 /CUMM (4.20-5.40); WHITE BLOOD CELL COUNT 20.7 /CUMM (4.8-10.8)
--- NOTE | 2017-06-25 07:11 | PN- Resident CRCU ---
See Addendum Subjective HPI/CRCU Issues: POD 2 s/p R thoracotomy/decortication for empyema 24 Hour Events: no issues noted overnight. Offers no complaints. Objective Vital Signs & I&O Last 8 Hrs of Vitals and I&O: Laboratory Tests 06/25 0535 Chemistry Sodium (137 - 145 mmol/L) 141 Potassium (3.5 - 5.1 mmol/L) 4.5 Chloride (98 - 107 mmol/L) 107 Carbon Dioxide (22 - 30 mmol/L) 21 L Anion Gap (5 - 16) 13 BUN (7 - 17 mg/dL) 42 H Creatinine (0.5 - 1.0 mg/dL) 2.9 H Estimated GFR (>60 ml/min) 16 L Glucose (65 - 99 mg/dL) 120 H Calcium (8.4 - 10.2 mg/dL) 8.5 Phosphorus (2.5 - 4.5 mg/dL) 7.6 H Magnesium (1.6 - 2.3 mg/dL) 1.9 Total Bilirubin (0.2 - 1.3 mg/dL) 0.3 AST (14 - 36 U/L) 20 ALT (9 - 52 U/L) 32 Albumin (3.5 - 5.0 g/dL) 2.3 L Hematology CBC w Diff MAN DIFF ORDERED WBC (4.8 - 10.8 /CUMM) 20.7 H RBC (4.20 - 5.40 /CUMM) 2.52 L Hgb (12.0 - 16.0 G/DL) 8.1 L Hct (37 - 47 %) 23.7 L MCV (81.0 - 99.0 FL) 94.2 MCH (27.0 - 31.0 PG) 32.2 H RDW (11.5 - 14.5 %) 18.1 H Plt Count (130 - 400 /CUMM) 337 MPV (7.4 - 10.4 FL) 7.0 L Gran % (42.2 - 75.2 %) 88.5 H Lymphocytes % (20.5 - 51.1 %) 4.5 L Monocytes % (1.7 - 9.3 %) 4.9 Eosinophils % (0 - 5 %) 1.9 Basophils % (0.0 - 2.0 %) 0.2 Absolute Granulocytes (1.4 - 6.5 /CUMM) 18.3 H Segmented Neutrophils (42.2 - 75.2 %) 89 H Absolute Lymphocytes (1.2 - 3.4 /CUMM) 0.9 L Lymphocytes (20.5 - 51.1 %) 5 L Monocytes (1.7 - 9.3 %) 4 Absolute Monocytes (0.10 - 0.60 /CUMM) 1.0 H Eosinophils (0 - 5.0 %) 1 Absolute Eosinophils (0.0 - 0.7 /CUMM) 0.4 Basophils (0.0 - 2.0 %) 1 Absolute Basophils (0.0 - 0.2 /CUMM) 0 Platelet Estimate (ADEQUATE) ADEQUATE Polychromasia 1+ Basophilic Stippling SLIGHT Ovalocytes FEW Stomatocytes FEW PUBS MCHC (33.0 - 37.0 G/DL) 34.1 Other Body Source Fld Total RBCs Counted (%) 100 Exam General Appearance: awake, comfortable Respiratory: decreased breath sounds Cardiovascular: regular rate/rhythm Gastrointestinal: soft, distention Current Medications: Current Medications Sig/Suleman Start time Last Medication Dose Route Stop Time Status Admin Acetaminophen 1,000 MG .STK-MED ONE 06/24 1405 DC IV 06/24 1406 Acetaminophen 1,000 MG Q6P PRN 06/19 1130 AC 06/24 N/A 1 UNIT IV 1430 Albuterol Sulfate 3 ML Q4 06/23 1800 AC 06/25 INH 0911 Ampicillin Sodium/ 3,000 MG Q8H 06/23 1600 AC 06/25 Sulbactam Sodium IV 0808 Sodium Chloride 100 ML Aspirin Buffered 650 MG DAILY 06/13 1000 DC 06/22 PO 0958 Atorvastatin Calcium 40 MG 1700 06/15 1700 AC 06/24 PO 1657 Calcium Carbonate 500 MG DAILY 06/25 1000 CAN PO Calcium Carbonate 500 MG ONCE ONE 06/24 2300 DC 06/24 PO 06/24 2301 2306 Calcium Carbonate 500 MG DAILY 06/21 1000 AC 06/25 PO 0910 Docusate Sodium 100 MG BID 06/12 2359 AC 06/25 PO 0910 Furosemide 40 MG DAILY 06/13 1000 AC 06/25 PO 0910 Hydromorphone HCl 1.2 MG Q4-6 PRN PRN 06/24 1100 AC 06/25 IV 1132 Insulin Aspart 0 TIDAC/HS 06/24 1200 AC 06/25 SC 0808 Insulin Detemir 26 UNITS BID 06/24 220 AC 06/25 SC 0912 Lidocaine 1 PAT DAILY@1700 06/20 1700 AC 06/24 EXT 1658 Melatonin 5 MG AT BEDTIME 06/21 2200 AC 06/24 PO 2202 Nitroglycerin 0.5 GM Q6P PRN 06/15 1830 AC TOP Oxycodone HCl 20 MG .STK-MED ONE 06/24 2158 DC PO 06/24 2159 Oxycodone HCl 20 MG .STK-MED ONE 06/24 1804 DC PO 06/24 1805 Oxycodone HCl 20 MG .STK-MED ONE 06/24 1210 DC PO 06/24 1211 Oxycodone HCl 10 MG Q4P PRN 06/23 1730 AC 06/25 PO 0944 Oxycodone HCl 20 MG Q4P PRN 06/23 1730 AC 06/25 PO 0311 Pregabalin 75 MG BID 06/13 2200 AC 06/25 PO 0910 Tiotropium [place] 1 PUF DAILY 06/14 1000 AC 06/25 INH 0912 Impression/Plan Impression/Problem List Impression: 61-year-old woman, current smoker with a history of COPD, diabetes type 2 with diabetic neuropathy, left leg DVT status post IVC filter 11 years prior to admission, chronic kidney disease, neuropathy and peripheral vascular disease, status post left BKA and amputations of the right first and third toes, last admitted to [facility] in September 2016 for cellulitis, current admision for empyema s/p status post right thoracotomy with drainage of an empyema and decortication of the right lower lobe 06/23/2017. afebrile overnight, WBC trending down 20.7, H/h 8.1/23.7 problem list: empyema status post right thoracotomy COPD DMT2 DVT CKD Left BKA Plan: thoracic surgery, ID and ENDO on board, apprec recs continue iv unasyn No AC, per surgery can restart her ASA 325mg pain control with oxycodone and morphine accuchecks, ISS, diabetic diet,on levemir continue lasix dvt ppx ALP full code Problem List: 1. Empyema 2. Diabetes mellitus type 2 Pain Ratin Tomorrow's Labs & Rationales: cbc/icu Plan DVT/Prophylaxis: pharmacological Code Status: Full Code
[2017-06-25 08:00] VITALS: BP 146/60; BP 246/60
--- NOTE | 2017-06-25 08:33 | PN- Pulmonary ---
Subjective HPI/Critical Care Issues: Patient is more awake and alert drainage from the chest tubes have decreased significantly chest x-ray continues to show right lower lobe consolidation Objective Current Medications: Current Medications Sig/Suleman Start time Last Medication Dose Route Stop Time Status Admin Acetaminophen 1,000 MG .STK-MED ONE 06/24 1405 DC IV 06/24 1406 Acetaminophen 1,000 MG Q6P PRN 06/19 1130 AC 06/24 N/A 1 UNIT IV 1430 Albuterol Sulfate 3 ML Q4 06/23 1800 AC 06/25 INH 0611 Ampicillin Sodium/ 3,000 MG Q8H 06/23 1600 AC 06/25 Sulbactam Sodium IV 0808 Sodium Chloride 100 ML Aspirin Buffered 650 MG DAILY 06/13 1000 DC 06/22 PO 0958 Atorvastatin Calcium 40 MG 1700 06/15 1700 AC 06/24 PO 1657 Calcium Carbonate 500 MG DAILY 06/25 1000 CAN PO Calcium Carbonate 500 MG ONCE ONE 06/24 2300 DC 06/24 PO 06/24 2301 2306 Calcium Carbonate 500 MG DAILY 06/21 1000 AC 06/24 PO 0931 Dextrose/Sodium 1,000 ML Q20H 06/23 1730 DC 06/23 Chloride IV 2117 Docusate Sodium 100 MG BID 06/12 2359 AC 06/22 PO 2218 Furosemide 40 MG DAILY 06/13 1000 AC 06/24 PO 0931 Hydromorphone HCl 1.2 MG Q4-6 PRN PRN 06/24 1100 AC 06/25 IV 0523 Hydromorphone HCl 1.5 MG Q2 HRS NEEDED PRN 06/23 1730 DC 06/24 IV 0803 Insulin Aspart 0 TIDAC/HS 06/24 1200 AC 06/25 SC 0808 Insulin Aspart 0 Q4 06/23 1845 DC 06/23 SC 2110 Insulin Detemir 26 UNITS BID 06/24 2200 AC 06/24 SC 2206 Insulin Detemir 30 UNITS BID 06/22 2200 DC 06/24 SC 0931 Lidocaine 1 PAT DAILY@1700 06/20 1700 AC 06/24 EXT 1658 Magnesium Sulfate 1 GM ONCE ONE 06/24 0545 DC 06/24 Dextrose/Water 100 ML IV 06/24 0944 0601 Melatonin 5 MG AT BEDTIME 06/21 220 AC 06/24 PO 2202 Nitroglycerin 0.5 GM Q6P PRN 06/15 1830 AC TOP Oxycodone HCl 20 MG .STK-MED ONE 06/24 2158 DC PO 06/24 2159 Oxycodone HCl 20 MG .STK-MED ONE 06/24 1804 DC PO 06/24 1805 Oxycodone HCl 20 MG .STK-MED ONE 06/24 1210 DC PO 06/24 1211 Oxycodone HCl 10 MG Q4P PRN 06/23 1730 AC PO Oxycodone HCl 20 MG Q4P PRN 06/23 1730 AC 06/25 PO 0311 Pregabalin 75 MG BID 06/13 2200 AC 06/24 PO 2201 Tiotropium [place] 1 PUF DAILY 06/14 1000 AC 06/24 INH 1051 Vital Signs & I&O Last 24 Hrs of Vitals and I&O: Vital Signs Date Time Temp Pulse Resp B/P B/P Pulse O2 O2 Flow FiO2 Mean Ox Delivery Rate 06/25 0400 95 Nasal 3.0L Cannula 06/25 0308 94 Nasal 2.0L Cannula 06/25 0000 94 Nasal 3.0L Cannula 06/24 2300 96.8 79 20 154/84 93 Nasal 3.0L Cannula 06/24 2000 94 Nasal 3.0L Cannula 06/24 1903 95 Nasal 3.0L Cannula 06/24 1600 97.3 70 12 132/60 97 Nasal 3.0L Cannula 06/24 1600 97 Nasal 3.0L Cannula 06/24 1200 94 Nasal 3.0L Cannula 06/24 1200 97.4 89 22 140/70 94 Nasal 2.0L Cannula 06/24 0900 92 Nasal 3.0L Cannula Intake & Output 06/25 1600 06/25 0800 06/25 0000 Intake Total 500 540 Output Total 850 885 Balance -350 -345 Intake, IV 100 100 Intake, Oral 400 440 Output, Chest 70 70 Tube Drainage Output, Urine 780 815 Oxygen saturation 3 L 95% exam for chest continues showed diminished breath sounds right chest posteriorly cardiac exam shows regular S1 and S2 without murmurs Impression/Plan Impression/Plan Impression/Plan: 61-year-old with right-sided empyema secondary to community-acquired pneumonia with associated sepsis. Patient has persistent loculated effusion and leukocytosis complicated by DVT now status post evacuation of empyema and hemothorax if chest tubes continue to show progressively decreased drainage planned sequential removal per CT surgery Recommendations: Pulmonary toilet and incentive spirometry. Decision to remove chest tubes per CT surgery. Patient should be mobilized out of bed
--- NOTE | 2017-06-25 09:51 | PN- Thoracic Surgery ---
See Addendum Subjective Subjective: R lateral chest wall pain is improving, no sob, no cp. no fever. Objective Vital Signs and I&Os Vital Signs Date Time Temp Pulse Resp B/P B/P Pulse O2 O2 Flow FiO2 Mean Ox Delivery Rate 06/25 0400 95 Nasal 3.0L Cannula 06/25 0308 94 Nasal 2.0L Cannula 06/25 0000 94 Nasal 3.0L Cannula 06/24 2300 96.8 79 20 154/84 93 Nasal 3.0L Cannula 06/24 2000 94 Nasal 3.0L Cannula 06/24 1903 95 Nasal 3.0L Cannula 06/24 1600 97.3 70 12 132/60 97 Nasal 3.0L Cannula 06/24 1600 97 Nasal 3.0L Cannula 06/24 1200 94 Nasal 3.0L Cannula 06/24 1200 97.4 89 22 140/70 94 Nasal 2.0L Cannula Intake & Output 06/25 1600 06/25 0800 06/25 0000 06/24 1600 06/24 0800 06/24 0000 Intake Total 633 186 4854 1093 1120 Output Total 850 885 238 051 1300 Balance -350 -345 314 568 -115 Intake, IV 100 100 434 493 370 Intake, Oral 400 440 600 600 750 Number 0 Bowel Movements Output, Chest 70 70 120 125 500 Tube Drainage Output, Urine 780 815 600 400 735 Patient 234 lb 244 lb Weight Weight Chair scale Bed scale Measurement Method Physical Exam: wdwn, aox3, nad on 02 via nc. O2 sat 96% heart: rrr Lungs: L side clear apical, diminished with crackles base. dressing with dry s/s drainage. distal CT with output of 70, 70, 110 last 24hrs. more sanguanous than serous drainage. no air leak. Results Last 48 Hours of Labs: Laboratory Tests 06/25 06/24 0535 0355 Chemistry Sodium (137 - 145 mmol/L) 141 139 Potassium (3.5 - 5.1 mmol/L) 4.5 4.4 Chloride (98 - 107 mmol/L) 107 107 Carbon Dioxide (22 - 30 mmol/L) 21 L 19 L Anion Gap (5 - 16) 13 13 BUN (7 - 17 mg/dL) 42 H 39 H Creatinine (0.5 - 1.0 mg/dL) 2.9 H 2.8 H Estimated GFR (>60 ml/min) 16 L 17 L Glucose (65 - 99 mg/dL) 120 H 126 H Calcium (8.4 - 10.2 mg/dL) 8.5 8.6 Phosphorus (2.5 - 4.5 mg/dL) 7.6 H 6.7 H Magnesium (1.6 - 2.3 mg/dL) 1.9 1.6 Total Bilirubin (0.2 - 1.3 mg/dL) 0.3 0.3 AST (14 - 36 U/L) 20 29 ALT (9 - 52 U/L) 32 48 Albumin (3.5 - 5.0 g/dL) 2.3 L 2.5 L Hematology CBC w Diff MAN DIFF ORDERED MAN DIFF ORDERED WBC (4.8 - 10.8 /CUMM) 20.7 H 32.2 *H RBC (4.20 - 5.40 /CUMM) 2.52 L 2.88 L Hgb (12.0 - 16.0 G/DL) 8.1 L 9.1 L Hct (37 - 47 %) 23.7 L 27.0 L MCV (81.0 - 99.0 FL) 94.2 93.8 MCH (27.0 - 31.0 PG) 32.2 H 31.8 H RDW (11.5 - 14.5 %) 18.1 H 18.3 H Plt Count (130 - 400 /CUMM) 337 369 MPV (7.4 - 10.4 FL) 7.0 L 7.3 L Gran % (42.2 - 75.2 %) 88.5 H 92.5 H Lymphocytes % (20.5 - 51.1 %) 4.5 L 3.4 L Monocytes % (1.7 - 9.3 %) 4.9 3.9 Eosinophils % (0 - 5 %) 1.9 0.2 Basophils % (0.0 - 2.0 %) 0.2 0 Absolute Granulocytes (1.4 - 6.5 /CUMM) 18.3 H 29.7 H Segmented Neutrophils (42.2 - 75.2 %) 89 H 94 H Absolute Lymphocytes (1.2 - 3.4 /CUMM) 0.9 L 1.1 L Lymphocytes (20.5 - 51.1 %) 5 L 1 L Monocytes (1.7 - 9.3 %) 4 5 Absolute Monocytes (0.10 - 0.60 /CUMM) 1.0 H 1.2 H Eosinophils (0 - 5.0 %) 1 Absolute Eosinophils (0.0 - 0.7 /CUMM) 0.4 0.1 Basophils (0.0 - 2.0 %) 1 Absolute Basophils (0.0 - 0.2 /CUMM) 0 0 Platelet Estimate (ADEQUATE) ADEQUATE ADEQUATE Polychromasia 1+ 1+ Basophilic Stippling SLIGHT SLIGHT Anisocytosis 1+ Ovalocytes FEW Stomatocytes FEW 1+ PUBS MCHC (33.0 - 37.0 G/DL) 34.1 33.9 Other Body Source Fld Total RBCs Counted (%) 100 / 1709 Chemistry Sodium (137 - 145 mmol/L) 137 Potassium (3.5 - 5.1 mmol/L) 4.4 Chloride (98 - 107 mmol/L) 109 H Carbon Dioxide (22 - 30 mmol/L) 18 L Anion Gap (5 - 16) 10 BUN (7 - 17 mg/dL) 42 H Creatinine (0.5 - 1.0 mg/dL) 2.6 H Estimated GFR (>60 ml/min) 19 L BUN/Creatinine Ratio (7 - 25 %) 16.2 Hematology CBC w Diff MAN DIFF ORDERED WBC (4.8 - 10.8 /CUMM) 33.7 *H RBC (4.20 - 5.40 /CUMM) 2.92 L Hgb (12.0 - 16.0 G/DL) 9.2 L Hct (37 - 47 %) 27.3 L MCV (81.0 - 99.0 FL) 93.6 MCH (27.0 - 31.0 PG) 31.6 H RDW (11.5 - 14.5 %) 17.6 H Plt Count (130 - 400 /CUMM) 368 MPV (7.4 - 10.4 FL) 7.0 L Gran % (42.2 - 75.2 %) 96.3 H Lymphocytes % (20.5 - 51.1 %) 1.8 L Monocytes % (1.7 - 9.3 %) 1.8 Eosinophils % (0 - 5 %) 0.1 Basophils % (0.0 - 2.0 %) 0 Absolute Granulocytes (1.4 - 6.5 /CUMM) 32.4 H Absolute Lymphocytes (1.2 - 3.4 /CUMM) 0.6 L Absolute Monocytes (0.10 - 0.60 /CUMM) 0.6 Absolute Eosinophils (0.0 - 0.7 /CUMM) 0 Absolute Basophils (0.0 - 0.2 /CUMM) 0 Platelet Estimate (ADEQUATE) ADEQUATE Anisocytosis 1+ PUBS MCHC (33.0 - 37.0 G/DL) 33.8 Assessment/Plan Assessment/Plan A- POD2 sp R thoracotomy/decortication for empyema, P- keep CTx2 to [facility]WS. check xray today. still with s/s drainage from distal tube, may need to continue to hold anticoagulation. will DW Dr Rebolledo. pain control Resp tx, titrate o2 as able medical care per primary team.
[2017-06-25 12:00] VITALS: BP 140/60
--- NOTE | 2017-06-25 12:10 | PN- Att Addend ---
Attending Addendum Attending Brief Note Patient in bed complaining of her usual pains Vital signs are stable no fever. Chest tubes in place to draining also has a Guzman catheter draining clear urine. Her white count is down to 20,700, other major changes on physical. Appreciate Dr. Rebolledo's input and recommendations, will keep off anticoagulation for now. One of the chest tubes will be removed later on today and continue close observation and monitoring her labs and continue antibiotic treatment as per infectious disease. Intake & Output 06/25 1600 06/25 0400 06/24 1600 06/24 0400 06/23 1600 06/23 0400 Intake Total 529 631 7678 1120 1645 300 Output Total 573 994 7929 1235 2500 700 Balance -350 -345 882 -115 -855 -400 Intake, Blood 350 Product Intake, IV 100 100 302 658 0768 Intake, Oral 067 095 4304 750 0 300 Number 0 Bowel Movements Output, Chest 70 70 245 500 Tube Drainage Output, Urine 482 391 5671 735 2500 700 Patient 234 lb 244 lb 245 lb 220 lb Weight Weight Bed scale Bed scale Bed scale Measurement Method Current Medications Sig/Suleman Start time Last Medication Dose Route Stop Time Status Admin Acetaminophen 1,000 MG .STK-MED ONE 06/24 1405 DC IV 06/24 1406 Acetaminophen 1,000 MG Q6P PRN 06/19 1130 AC 06/24 N/A 1 UNIT IV 1430 Albuterol Sulfate 3 ML Q4 06/23 1800 AC 06/25 INH 0911 Ampicillin Sodium/ 3,000 MG Q8H 06/23 1600 AC 06/25 Sulbactam Sodium IV 0808 Sodium Chloride 100 ML Aspirin 325 MG DAILY 06/25 1145 AC PO Aspirin Buffered 650 MG DAILY 06/13 1000 DC 06/22 PO 0958 Atorvastatin Calcium 40 MG 1700 06/15 1700 AC 06/24 PO 1657 Calcium Carbonate 500 MG DAILY 06/25 1000 CAN PO Calcium Carbonate 500 MG ONCE ONE 06/24 2300 DC 06/24 PO 06/24 2301 2306 Calcium Carbonate 500 MG DAILY 06/21 1000 AC 06/25 PO 0910 Docusate Sodium 100 MG BID 06/12 2359 AC 06/25 PO 0910 Furosemide 40 MG DAILY 06/13 1000 AC 06/25 PO 0910 Hydromorphone HCl 1.2 MG Q4-6 PRN PRN 06/24 1100 AC 06/25 IV 1132 Insulin Aspart 0 TIDAC/HS 06/24 1200 AC 06/25 SC 0808 Insulin Detemir 26 UNITS BID 06/24 2200 06/25 SC 0912 Lidocaine 1 PAT DAILY@1700 06/20 1700 AC 06/24 EXT 1658 Melatonin 5 MG AT BEDTIME 06/210 AC 06/24 PO 2202 Nitroglycerin 0.5 GM Q6P PRN 06/15 1830 AC TOP Oxycodone HCl 20 MG .STK-MED ONE 06/24 2158 DC PO 06/24 2159 Oxycodone HCl 20 MG .STK-MED ONE 06/24 1804 DC PO 06/24 1805 Oxycodone HCl 20 MG .STK-MED ONE 06/24 1210 DC PO 06/24 1211 Oxycodone HCl 10 MG Q4P PRN 06/23 1730 AC 06/25 PO 0944 Oxycodone HCl 20 MG Q4P PRN 06/23 1730 AC 06/25 PO 0311 Pregabalin 75 MG BID 06/13 220 06/25 PO 0910 Tiotropium [place] 1 PUF DAILY 06/14 1000 AC 06/25 INH 0912 Laboratory Tests 06/25/17 0535: Anion Gap 13, Estimated GFR 16 L, Glucose 120 H, Calcium 8.5, Phosphorus 7.6 H, Magnesium 1.9, Total Bilirubin 0.3, AST 20, ALT 32, Albumin 2.3 L, CBC w Diff MAN DIFF ORDERED, RBC 2.52 L, MCV 94.2, MCH 32.2 H, RDW 18.1 H, MPV 7.0 L, Gran % 88.5 H, Lymphocytes % 4.5 L, Monocytes % 4.9, Eosinophils % 1.9, Basophils % 0.2, Absolute Granulocytes 18.3 H, Segmented Neutrophils 89 H, Absolute Lymphocytes 0.9 L, Lymphocytes 5 L, Monocytes 4, Absolute Monocytes 1.0 H, Eosinophils 1, Absolute Eosinophils 0.4, Basophils 1, Absolute Basophils 0, Platelet Estimate ADEQUATE, Polychromasia 1+, Basophilic Stippling SLIGHT, Ovalocytes FEW, Stomatocytes FEW, PUBS MCHC 34.1, Fld Total RBCs Counted 100 06/24/17 0355: Anion Gap 13, Estimated GFR 17 L, Glucose 126 H, Calcium 8.6, Phosphorus 6.7 H, Magnesium 1.6, Total Bilirubin 0.3, AST 29, ALT 48, Albumin 2.5 L, CBC w Diff MAN DIFF ORDERED, RBC 2.88 L, MCV 93.8, MCH 31.8 H, RDW 18.3 H, MPV 7.3 L, Gran % 92.5 H, Lymphocytes % 3.4 L, Monocytes % 3.9, Eosinophils % 0.2, Basophils % 0, Absolute Granulocytes 29.7 H, Segmented Neutrophils 94 H, Absolute Lymphocytes 1.1 L, Lymphocytes 1 L, Monocytes 5, Absolute Monocytes 1.2 H, Absolute Eosinophils 0.1, Absolute Basophils 0, Platelet Estimate ADEQUATE, Polychromasia 1+, Basophilic Stippling SLIGHT, Anisocytosis 1+, Stomatocytes 1+, [facility] 33.9 06/23/17 1709: Anion Gap 10, Estimated GFR 19 L, BUN/Creatinine Ratio 16.2, CBC w Diff MAN DIFF ORDERED, RBC 2.92 L, MCV 93.6, MCH 31.6 H, RDW 17.6 H, MPV 7.0 L, Gran % 96.3 H, Lymphocytes % 1.8 L, Monocytes % 1.8, Eosinophils % 0.1, Basophils % 0, Absolute Granulocytes 32.4 H, Absolute Lymphocytes 0.6 L, Absolute Monocytes 0.6, Absolute Eosinophils 0, Absolute Basophils 0, Platelet Estimate ADEQUATE, Anisocytosis 1+, [facility] 33.8 06/23/17 0745: APTT 71 H 06/23/17 0625: Anion Gap 11, Estimated GFR 18 L, BUN/Creatinine Ratio 17.0, CBC w Diff MAN DIFF ORDERED, RBC 2.20 L, MCV 97.7, MCH 32.9 H, RDW 15.5 H, MPV 7.2 L, Gran % 90.0 H, Lymphocytes % 5.3 L, Monocytes % 3.7, Eosinophils % 0.9, Basophils % 0.1, Absolute Granulocytes 26.9 H, Segmented Neutrophils 89 H, Absolute Lymphocytes 1.6, Lymphocytes 8 L, Monocytes 3, Absolute Monocytes 1.1 H, Absolute Eosinophils 0.3, Absolute Basophils 0, Platelet Estimate VERIFIED BY SMEAR, Normocytic RBCs VERIFIED, Normochromic RBCs VERIFIED, [facility] 33.7 06/22/17 1210: APTT 74 H Microbiology 06/23 1655 UPPER RESP: Surveillance Culture - COMP 06/23 1309 MISC O.R.: Miscellaneous Culture - CAN Cancelled: OE 06/23 1309 MISC O.R.: Gram Stain - CAN Cancelled: OE 06/23 1309 BODY FLUID: Body Fluid Culture - RES 06/23 1309 BODY FLUID: Gram Stain - RES 06/23 1309 BODY FLUID: AFB Culture with PCR Identification - RES 06/23 1309 BODY FLUID: AFB Smear Concentration - RES 06/23 1309 BODY FLUID: Fungal Culture - RECD 06/23 0040 URINE ROUT: Urine Culture - COMP Microbiology 06/23 1655 UPPER RESP: Surveillance Culture - COMP 06/23 1309 MISC O.R.: Miscellaneous Culture - CAN Cancelled: OE 06/23 1309 MISC O.R.: Gram Stain - CAN Cancelled: OE 06/23 1309 BODY FLUID: Body Fluid Culture - RES 06/23 1309 BODY FLUID: Gram Stain - RES 06/23 1309 BODY FLUID: AFB Culture with PCR Identification - RES 06/23 1309 BODY FLUID: AFB Smear Concentration - RES 06/23 1309 BODY FLUID: Fungal Culture - RECD 06/23 0040 URINE ROUT: Urine Culture - COMP Vital Signs Date Time Temp Pulse Resp B/P B/P Pulse O2 O2 Flow FiO2 Mean Ox Delivery Rate 06/25 0945 94 Nasal 3.0L Cannula 06/25 0800 98.2 76 18 146/60 94 Nasal 3.0L Cannula 06/25 0800 94 Nasal 3.0L Cannula 06/25 0400 95 Nasal 3.0L Cannula 06/25 0308 94 Nasal 2.0L Cannula 06/25 0000 94 Nasal 3.0L Cannula 06/24 2300 96.8 79 20 154/84 93 Nasal 3.0L Cannula 06/24 2000 94 Nasal 3.0L Cannula 06/24 1903 95 Nasal 3.0L Cannula 06/24 1600 97.3 70 12 132/60 97 Nasal 3.0L Cannula 06/24 1600 97 Nasal 3.0L Cannula
[2017-06-25 16:00] VITALS: BP 144/84
[2017-06-25 23:00] VITALS: BP 138/60
[2017-06-26 05:50] LABS: ABSOLUTE BASOPHIL COUNT 0.1 /CUMM (0.0-0.2); ABSOLUTE EOSINOPHIL COUNT 0.3 /CUMM (0.0-0.7); ABSOLUTE GRANULOCYTE CT 14.4 /CUMM (1.4-6.5); ABSOLUTE LYMPH COUNT 1.1 /CUMM (1.2-3.4); ABSOLUTE MONOCYTE COUNT 0.8 /CUMM (0.10-0.60); BASOPHIL % 0.5 % (0.0-2.0); EOSINOPHIL % 2.1 % (0-5); HEMATOCRIT 23.5 % (37-47); MEAN CORPUSCULAR HGB 31.9 PG (27.0-31.0); MEAN CORPUSCULAR HGB CONC 33.5 G/DL (33.0-37.0); MEAN CORPUSCULAR VOLUME 95.3 FL (81.0-99.0); MEAN PLATELET VOLUME 7.1 FL (7.4-10.4); PLATELET COUNT 366 /CUMM (130-400); RBC DISTRIBUTION WIDTH 17.9 % (11.5-14.5); RED BLOOD CELL CT 2.47 /CUMM (4.20-5.40); WHITE BLOOD CELL COUNT 16.6 /CUMM (4.8-10.8)
[2017-06-26 07:08] LABS: GRANULOCYTE % 86.4 % (42.2-75.2)
--- NOTE | 2017-06-26 07:17 | PN- Resident CRCU ---
See Addendum Subjective HPI/CRCU Issues: POD 2 s/p R thoracotomy/decortication for empyema 24 Hour Events: no issues noted overnight. Offers no complaints. Pain is better controlled Objective Vital Signs & I&O Last 8 Hrs of Vitals and I&O: Intake & Output 06/26 1600 06/26 0800 06/26 0000 Intake Total 360 200 Output Total 100 Balance 260 200 Intake, IV 120 200 Intake, Oral 240 Output, Chest 100 Tube Drainage Patient 238 lb Weight Weight Bed scale Measurement Method Laboratory Tests 06/26 0407 Chemistry Sodium (137 - 145 mmol/L) 142 Potassium (3.5 - 5.1 mmol/L) 4.5 Chloride (98 - 107 mmol/L) 107 Carbon Dioxide (22 - 30 mmol/L) 20 L Anion Gap (5 - 16) 14 BUN (7 - 17 mg/dL) 40 H Creatinine (0.5 - 1.0 mg/dL) 3.4 H Estimated GFR (>60 ml/min) 14 L Glucose (65 - 99 mg/dL) 70 Calcium (8.4 - 10.2 mg/dL) 9.0 Phosphorus (2.5 - 4.5 mg/dL) 8.1 H Magnesium (1.6 - 2.3 mg/dL) 2.0 Total Bilirubin (0.2 - 1.3 mg/dL) 0.4 AST (14 - 36 U/L) 18 ALT (9 - 52 U/L) 29 Albumin (3.5 - 5.0 g/dL) 2.5 L Hematology CBC w Diff NO MAN DIFF REQ WBC (4.8 - 10.8 /CUMM) 16.6 H RBC (4.20 - 5.40 /CUMM) 2.47 L Hgb (12.0 - 16.0 G/DL) 7.9 L Hct (37 - 47 %) 23.5 L MCV (81.0 - 99.0 FL) 95.3 MCH (27.0 - 31.0 PG) 31.9 H RDW (11.5 - 14.5 %) 17.9 H Plt Count (130 - 400 /CUMM) 366 MPV (7.4 - 10.4 FL) 7.1 L Gran % (42.2 - 75.2 %) 86.4 H Lymphocytes % (20.5 - 51.1 %) 6.5 L Monocytes % (1.7 - 9.3 %) 4.5 Eosinophils % (0 - 5 %) 2.1 Basophils % (0.0 - 2.0 %) 0.5 Absolute Granulocytes (1.4 - 6.5 /CUMM) 14.4 H Absolute Lymphocytes (1.2 - 3.4 /CUMM) 1.1 L Absolute Monocytes (0.10 - 0.60 /CUMM) 0.8 H Absolute Eosinophils (0.0 - 0.7 /CUMM) 0.3 Absolute Basophils (0.0 - 0.2 /CUMM) 0.1 PUBS MCHC (33.0 - 37.0 G/DL) 33.5 Intake & Output 06/26 1600 Intake Total Output Total Balance Patient 238 lb Weight Weight Bed scale Measurement Method Exam General Appearance: awake, comfortable Respiratory: normal breath sounds Cardiovascular: regular rate/rhythm Gastrointestinal: distention Current Medications: Current Medications Sig/Suleman Start time Last Medication Dose Route Stop Time Status Admin Acetaminophen 1,000 MG Q6P PRN 06/19 1130 AC 06/25 N/A 1 UNIT IV 1527 Albuterol Sulfate 3 ML EVERY 4 HRS/AWAKE 06/26 1234 AC 06/26 INH 2151 Albuterol Sulfate 3 ML Q4 06/23 1800 DC 06/26 INH 0829 Ampicillin Sodium/ 3,000 MG Q8H 06/23 1600 AC 06/27 Sulbactam Sodium IV 0805 Sodium Chloride 100 ML Aspirin 325 MG DAILY 06/25 1145 AC 06/26 PO 0919 Atorvastatin Calcium 40 MG 1700 06/15 1700 AC 06/26 PO 1644 Calcium Carbonate 500 MG DAILY 06/21 1000 AC 06/27 PO 0211 Docusate Sodium 100 MG BID 06/12 2359 AC 06/26 PO 2211 Furosemide 40 MG DAILY 06/13 1000 DC 06/26 PO 0919 Hydromorphone HCl 1.2 MG Q4-6 PRN PRN 06/24 1100 AC 06/27 IV 0522 Insulin Aspart 0 TIDAC/HS 06/24 1200 AC 06/27 SC 0804 Insulin Detemir 22 UNITS BID 06/26 1000 AC 06/26 SC 2211 Lidocaine 1 PAT DAILY@1700 06/20 1700 AC 06/26 EXT 1644 Melatonin 5 MG AT BEDTIME 06/21 2200 AC 06/26 PO 2212 Nitroglycerin 0.5 GM Q6P PRN 06/15 1830 AC TOP Oxycodone HCl 20 MG .STK-MED ONE 06/26 1345 DC PO 06/26 1346 Oxycodone HCl 20 MG .STK-MED ONE 06/26 0945 DC PO 06/26 0946 Oxycodone HCl 40 MG Q12 06/25 2200 AC 06/26 PO 2212 Oxycodone HCl 10 MG Q4P PRN 06/23 1730 AC 06/25 PO 0944 Oxycodone HCl 20 MG Q4P PRN 06/23 1730 AC 06/27 PO 0257 Pregabalin 75 MG BID 06/13 2200 AC 06/26 PO 2212 Ramelteon 8 MG ONCE ONE 06/27 0115 CAN PO 06/27 0116 Sodium Chloride 2 SPRAY Q4P PRN 06/27 0015 AC 06/27 TREY 0209 Sodium Chloride 1,000 ML Q13H 06/26 1900 AC 06/26 IV 2114 Tiotropium [place] 1 PUF DAILY 06/14 1000 AC 06/26 INH 0920 Impression/Plan Impression/Problem List Impression: 61-year-old woman, current smoker with a history of COPD, diabetes type 2 with diabetic neuropathy, left leg DVT status post IVC filter 11 years prior to admission, chronic kidney disease, neuropathy and peripheral vascular disease, status post left BKA and 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 afebrile overnight, WBC trending down 16.6, H/h 7.9/23.5 problem list: empyema status post right thoracotomy COPD DMT2 DVT CKD Left BKA AMEYA on CKD Plan: thoracic surgery, ID and ENDO on board, apprec recs continue iv unasyn Pulmonary toilet and incentive spirometry No AC, per surgery, can restart her ASA 325mg pain control with oxycodone and morphine accuchecks, ISS, diabetic diet,on levemir will hold Lasix given worsening creatinine PT to evaluate and treat dvt ppx ALP full code Problem List: 1. Empyema 2. Diabetes mellitus type 2 Pain Ratin Tomorrow's Labs & Rationales: icu/cbc Plan DVT/Prophylaxis: pharmacological Code Status: Full Code
--- NOTE | 2017-06-26 07:20 | PN- Thoracic Surgery ---
Surgical Brief Attending Note Brief Attending Note: Tube sill in, CXR shows continued consolidative process. WBC down significantly. Tube will stay in today. I STRONGLY RECOMMEND AGASINST HEPARIN, finding of 1.5 liters of blood in chest
--- NOTE | 2017-06-26 07:45 | RADIOLOGY REPORT ---
EXAMINATION: XR PORTABLE CHEST CLINICAL INFORMATION: Right-sided chest tube removal COMPARISON: 06/24/2017 TECHNIQUE: Portable frontal view of the chest was obtained. FINDINGS: There is been interval removal of the right apical chest tube. No interval change in the positioning of the right basilar chest tube. No evidence of pneumothorax bilaterally. Possible slight interval increase in the volume of loculated right pleural fluid, however differences in patient positioning may account for this slight interval change. Patchy opacities in the aerated portions of the right lung. Patchy airspace opacities on the left, predominantly at the mid to lower lung, unchanged. Stable appearance of the cardiomediastinal silhouette. No acute osseous abnormality. Skin bernie right axilla, unchanged. IMPRESSION: Interval removal of the right apical chest tube and stable positioning of the right basilar chest tube. No evidence of pneumothorax bilaterally. Possible slight interval increase in the volume of loculated right pleural effusion, however this could be accounted for by differences in patient positioning.
[2017-06-26 08:00] VITALS: BP 162/60
--- NOTE | 2017-06-26 08:03 | PN- Diabetes ---
Assessment/Plan Assessment: This 61-year-old woman with a known history of type 2 diabetes mellitus associated with morbid obesity and with severe complications including a left below the knee amputation diabetic neuropathy and chronic kidney diseases stage 4 presented to the emergency room with respiratory failure. The patient underwent right thoracotomy with drainage of an empyema. A great deal of loculation of fibrosis was found apparently according to the operative note. The patient is on Levemir 26 units twice a day. She is awake and alert this morning. Yesterday the patient sugar got low at bedtime. Fingerstick blood sugars during the day yesterday were 133 at 8 AM, 151 before lunch, 113 before dinner, and 57 at bedtime. Blood sugar in the lab at 4 AM was 70. Apparently the patient was not eating well yesterday. Plan: Suggest to use the patient's insulin. Would change Levemir to 22 units twice a day. In addition we will adjust the patient's sliding-scale NovoLog. Sliding scale NovoLog before meals should be less than 125 give no insulin, 126-150 give 2 units NovoLog, 151- 200 give 3 units Novolog, 200-250 give 5 units NovoLog, 251- 300 give 7 units NovoLog, 301-350 give 9 units NovoLog, 351-400 give 11 units NovoLog. Bedtime sliding-scale NovoLog should stay as written. The patient does not eat well we should provide her with dietary supplements such as Glucerna. Subjective Subjective: Feels improved Review of Systems Constitutional: Denies: chills, fever. Cardiovascular: Denies: chest pain. Respiratory: Reports: cough. Gastrointestinal: Denies: nausea, vomiting. Skin: Reports: no symptoms. Objective Last 24 Hrs of Vital Signs/I&O Vital Signs Date Time Temp Pulse Resp B/P B/P Pulse O2 O2 Flow FiO2 Mean Ox Delivery Rate 06/26 0404 93 Nasal 3.0L Cannula 06/26 0400 95 Nasal 3.0L Cannula 06/26 0000 94 Nasal 3.0L Cannula 06/25 2300 97.0 76 14 138/60 94 Nasal 3.0L Cannula 06/25 2000 98 Nasal 3.0L Cannula 06/25 1800 94 Nasal 3.0L Cannula 06/25 1600 94 Nasal 3.0L Cannula 06/25 1600 97.1 81 20 144/84 94 Nasal 3.0L Cannula 06/25 1433 Nasal 3.0L Cannula 06/25 1200 94 Nasal 3.0L Cannula 06/25 1200 98.3 80 18 140/60 95 Room Air 06/25 0945 94 Nasal 3.0L Cannula 06/25 0800 98.2 76 18 146/60 94 Nasal 3.0L Cannula 06/25 0800 94 Nasal 3.0L Cannula Intake & Output 06/26 0800 06/26 0000 06/25 1600 Intake Total 110 330 7041 Output Total 100 765 Balance 260 200 385 Intake, IV 120 200 150 Intake, Oral 240 1000 Output, Chest 100 65 Tube Drainage Output, Urine 700 Patient 234 lb Weight Weight Bed scale Measurement Method Vital Signs Date Time Temp Pulse Resp B/P B/P Pulse O2 O2 Flow FiO2 Mean Ox Delivery Rate 06/26 0404 93 Nasal 3.0L Cannula 06/26 0400 95 Nasal 3.0L Cannula 06/26 0000 94 Nasal 3.0L Cannula 06/25 2300 97.0 76 14 138/60 94 Nasal 3.0L Cannula 06/25 2000 98 Nasal 3.0L Cannula 06/25 1800 94 Nasal 3.0L Cannula 06/25 1600 94 Nasal 3.0L Cannula 06/25 1600 97.1 81 20 144/84 94 Nasal 3.0L Cannula 06/25 1433 Nasal 3.0L Cannula 06/25 1200 94 Nasal 3.0L Cannula 06/25 1200 98.3 80 18 140/60 95 Room Air 06/25 0945 94 Nasal 3.0L Cannula 06/25 0800 98.2 76 18 146/60 94 Nasal 3.0L Cannula 06/25 0800 94 Nasal 3.0L Cannula Intake & Output 06/26 0800 06/26 0000 06/25 1600 Intake Total 883 853 0407 Output Total 100 765 Balance 260 200 385 Intake, IV 120 200 150 Intake, Oral 240 1000 Output, Chest 100 65 Tube Drainage Output, Urine 700 Patient 234 lb Weight Weight Bed scale Measurement Method Physical Exam General Appearance: alert, awake, comfortable Head: normal appearance Neck: normal inspection Respiratory: decreased breath sounds (right base) Cardiovascular: regular rate/rhythm Abdomen: normal bowel sounds Extremities: left below-knee amputation Current Medications: Current Medications Sig/Suleman Start time Last Medication Dose Route Stop Time Status Admin Acetaminophen 1,000 MG .STK-MED ONE 06/25 1526 DC IV 06/25 1527 Acetaminophen 1,000 MG Q6P PRN 06/19 1130 AC 06/25 N/A 1 UNIT IV 1527 Albuterol Sulfate 3 ML Q4 06/23 1800 AC 06/26 INH 0335 Ampicillin Sodium/ 3,000 MG Q8H 06/23 1600 AC 06/26 Sulbactam Sodium IV 0754 Sodium Chloride 100 ML Aspirin 325 MG DAILY 06/25 1145 AC 06/25 PO 1234 Atorvastatin Calcium 40 MG 1700 06/15 1700 AC 06/25 PO 1653 Calcium Carbonate 500 MG DAILY 06/21 1000 AC 06/25 PO 0910 Dextrose 25 GM ONCE ONE 06/25 2115 DC 06/25 IV 06/25 2116 2153 Docusate Sodium 100 MG BID 06/12 2359 AC 06/25 PO 2153 Furosemide 40 MG DAILY 06/13 1000 AC 06/25 PO 0910 Hydromorphone HCl 0.8 MG ONCE ONE 06/25 1415 DC 06/25 IV 06/25 1416 1230 Hydromorphone HCl 2 MG ONCE PRN 06/25 1415 AC 06/25 IV 1411 Hydromorphone HCl 1.2 MG Q4-6 PRN PRN 06/24 1100 AC 06/25 IV 1132 Insulin Aspart 0 TIDAC/HS 06/24 1200 AC 06/25 SC 1653 Insulin Detemir 26 UNITS BID 06/24 2200 AC 06/25 SC 0912 Lidocaine 1 PAT DAILY@1700 06/20 1700 AC 06/25 EXT 1655 Melatonin 5 MG AT BEDTIME 06/21 2200 AC 06/25 PO 2153 Nitroglycerin 0.5 GM Q6P PRN 06/15 1830 AC TOP Oxycodone HCl 40 MG Q12 06/25 2200 AC 06/25 PO 2153 Oxycodone HCl 20 MG .STK-MED ONE 06/25 1308 DC PO 06/25 1309 Oxycodone HCl 10 MG .STK-MED ONE 06/25 0942 DC PO 06/25 0943 Oxycodone HCl 10 MG Q4P PRN 06/23 1730 AC 06/25 PO 0944 Oxycodone HCl 20 MG Q4P PRN 06/23 1730 AC 06/25 PO 1313 Pregabalin 75 MG BID 06/13 2200 AC 06/25 PO 2153 Tiotropium [place] 1 PUF DAILY 06/14 1000 AC 06/25 INH 0912 Current Medications Sig/Suleman Start time Last Medication Dose Route Stop Time Status Admin Acetaminophen 1,000 MG .STK-MED ONE 06/25 1526 DC IV 06/25 1527 Acetaminophen 1,000 MG Q6P PRN 06/19 1130 AC 06/25 N/A 1 UNIT IV 1527 Albuterol Sulfate 3 ML Q4 06/23 1800 AC 06/26 INH 0335 Ampicillin Sodium/ 3,000 MG Q8H 06/23 1600 AC 06/26 Sulbactam Sodium IV 0754 Sodium Chloride 100 ML Aspirin 325 MG DAILY 06/25 1145 AC 06/25 PO 1234 Atorvastatin Calcium 40 MG 1700 06/15 1700 AC 06/25 PO 1653 Calcium Carbonate 500 MG DAILY 06/21 1000 AC 06/25 PO 0910 Dextrose 25 GM ONCE ONE 06/25 2115 DC 06/25 IV 06/25 2116 2153 Docusate Sodium 100 MG BID 06/12 2359 AC 06/25 PO 2153 Furosemide 40 MG DAILY 06/13 1000 AC 06/25 PO 0910 Hydromorphone HCl 0.8 MG ONCE ONE 06/25 1415 DC 04 IV 06/25 1416 1230 Hydromorphone HCl 2 MG ONCE PRN 06/25 1415 AC 06/25 IV 1411 Hydromorphone HCl 1.2 MG Q4-6 PRN PRN 06/24 1100 AC 06/25 IV 1132 Insulin Aspart 0 TIDAC/HS 06/24 1200 AC 06/25 SC 1653 Insulin Detemir 26 UNITS BID 06/24 2200 06/25 SC 0912 Lidocaine 1 PAT DAILY@1700 06/20 1700 AC 06/25 EXT 1655 Melatonin 5 MG AT BEDTIME 06/21 2200 AC 06/25 PO 2153 Nitroglycerin 0.5 GM Q6P PRN 06/15 1830 AC TOP Oxycodone HCl 40 MG Q12 06/25 2200 AC 06/25 PO 2153 Oxycodone HCl 20 MG .STK-MED ONE 06/25 1308 DC PO 06/25 1309 Oxycodone HCl 10 MG .STK-MED ONE 06/25 0942 DC PO 06/25 0943 Oxycodone HCl 10 MG Q4P PRN 06/23 1730 AC 06/25 PO 0944 Oxycodone HCl 20 MG Q4P PRN 06/23 1730 AC 06/25 PO 1313 Pregabalin 75 MG BID 06/13 2200 AC 06/25 PO 2153 Tiotropium [place] 1 PUF DAILY 06/14 1000 AC 06/25 INH 0912 Findings Pertinent Lab/Drew Results: Laboratory Tests 06/26 0407 Chemistry Sodium (137 - 145 mmol/L) 142 Potassium (3.5 - 5.1 mmol/L) 4.5 Chloride (98 - 107 mmol/L) 107 Carbon Dioxide (22 - 30 mmol/L) 20 L Anion Gap (5 - 16) 14 BUN (7 - 17 mg/dL) 40 H Creatinine (0.5 - 1.0 mg/dL) 3.4 H Estimated GFR (>60 ml/min) 14 L Glucose (65 - 99 mg/dL) 70 Calcium (8.4 - 10.2 mg/dL) 9.0 Phosphorus (2.5 - 4.5 mg/dL) 8.1 H Magnesium (1.6 - 2.3 mg/dL) 2.0 Total Bilirubin (0.2 - 1.3 mg/dL) 0.4 AST (14 - 36 U/L) 18 ALT (9 - 52 U/L) 29 Albumin (3.5 - 5.0 g/dL) 2.5 L Hematology CBC w Diff NO MAN DIFF REQ WBC (4.8 - 10.8 /CUMM) 16.6 H RBC (4.20 - 5.40 /CUMM) 2.47 L Hgb (12.0 - 16.0 G/DL) 7.9 L Hct (37 - 47 %) 23.5 L MCV (81.0 - 99.0 FL) 95.3 MCH (27.0 - 31.0 PG) 31.9 H RDW (11.5 - 14.5 %) 17.9 H Plt Count (130 - 400 /CUMM) 366 MPV (7.4 - 10.4 FL) 7.1 L Gran % (42.2 - 75.2 %) 86.4 H Lymphocytes % (20.5 - 51.1 %) 6.5 L Monocytes % (1.7 - 9.3 %) 4.5 Eosinophils % (0 - 5 %) 2.1 Basophils % (0.0 - 2.0 %) 0.5 Absolute Granulocytes (1.4 - 6.5 /CUMM) 14.4 H Absolute Lymphocytes (1.2 - 3.4 /CUMM) 1.1 L Absolute Monocytes (0.10 - 0.60 /CUMM) 0.8 H Absolute Eosinophils (0.0 - 0.7 /CUMM) 0.3 Absolute Basophils (0.0 - 0.2 /CUMM) 0.1 PUBS MCHC (33.0 - 37.0 G/DL) 33.5
--- NOTE | 2017-06-26 08:03 | PN- Pulmonary ---
Subjective HPI/Critical Care Issues: Patient feels improved one chest tube has been removed Objective Current Medications: Current Medications Sig/Suleman Start time Last Medication Dose Route Stop Time Status Admin Acetaminophen 1,000 MG .STK-MED ONE 06/25 1526 DC IV 06/25 1527 Acetaminophen 1,000 MG Q6P PRN 06/19 1130 AC 06/25 N/A 1 UNIT IV 1527 Albuterol Sulfate 3 ML Q4 06/23 1800 AC 06/26 INH 0335 Ampicillin Sodium/ 3,000 MG Q8H 06/23 1600 AC 06/26 Sulbactam Sodium IV 0754 Sodium Chloride 100 ML Aspirin 325 MG DAILY 06/25 1145 AC 06/25 PO 1234 Atorvastatin Calcium 40 MG 1700 06/15 1700 AC 06/25 PO 1653 Calcium Carbonate 500 MG DAILY 06/21 1000 AC 06/25 PO 0910 Dextrose 25 GM ONCE ONE 06/25 2115 DC 06/25 IV 06/25 2116 2153 Docusate Sodium 100 MG BID 06/12 2359 AC 06/25 PO 2153 Furosemide 40 MG DAILY 06/13 1000 AC 06/25 PO 0910 Hydromorphone HCl 0.8 MG ONCE ONE 06/25 1415 DC 06/25 IV 06/25 1416 1230 Hydromorphone HCl 2 MG ONCE PRN 06/25 1415 AC 06/25 IV 1411 Hydromorphone HCl 1.2 MG Q4-6 PRN PRN 06/24 1100 AC 06/25 IV 1132 Insulin Aspart 0 TIDAC/HS 06/24 1200 AC 06/25 SC 1653 Insulin Detemir 26 UNITS BID 06/24 2200 AC 06/25 SC 0912 Lidocaine 1 PAT DAILY@1700 06/20 1700 AC 06/25 EXT 1655 Melatonin 5 MG AT BEDTIME 06/21 2200 AC 06/25 PO 2153 Nitroglycerin 0.5 GM Q6P PRN 06/15 1830 AC TOP Oxycodone HCl 40 MG Q12 06/25 2200 AC 06/25 PO 2153 Oxycodone HCl 20 MG .STK-MED ONE 06/25 1308 DC PO 06/25 1309 Oxycodone HCl 10 MG .STK-MED ONE 06/25 0942 DC PO 06/25 0943 Oxycodone HCl 10 MG Q4P PRN 06/23 1730 AC 06/25 PO 0944 Oxycodone HCl 20 MG Q4P PRN 06/23 1730 AC 06/25 PO 1313 Pregabalin 75 MG BID 06/13 2200 AC 06/25 PO 2153 Tiotropium [place] 1 PUF DAILY 06/14 1000 AC 06/25 INH 0912 Vital Signs & I&O Last 24 Hrs of Vitals and I&O: Vital Signs Date Time Temp Pulse Resp B/P B/P Pulse O2 O2 Flow FiO2 Mean Ox Delivery Rate 06/26 0404 93 Nasal 3.0L Cannula 06/26 0400 95 Nasal 3.0L Cannula 06/26 0000 94 Nasal 3.0L Cannula 06/25 2300 97.0 76 14 138/60 94 Nasal 3.0L Cannula 06/25 2000 98 Nasal 3.0L Cannula 06/25 1800 94 Nasal 3.0L Cannula 06/25 1600 94 Nasal 3.0L Cannula 06/25 1600 97.1 81 20 144/84 94 Nasal 3.0L Cannula 06/25 1433 Nasal 3.0L Cannula 06/25 1200 94 Nasal 3.0L Cannula 06/25 1200 98.3 80 18 140/60 95 Room Air 06/25 0945 94 Nasal 3.0L Cannula Intake & Output 06/26 1600 06/26 0800 06/26 0000 Intake Total 360 200 Output Total 100 Balance 260 200 Intake, IV 120 200 Intake, Oral 240 Output, Chest 100 Tube Drainage Saturation 3 L 96% exam for chest continues show diminished breath sounds of the right posterior chest cardiac exam shows a regular S1 and S2 without murmurs Impression/Plan Impression/Plan Impression/Plan: 61-year-old with right-sided empyema secondary to community-acquired pneumonia with associated sepsis. Patient has persistent loculated effusion and leukocytosis complicated by DVT now status post evacuation of empyema and hemothorax if chest tubes continue to show progressively decreased drainage planned sequential removal per CT surgery patient continues to improve and white count has decreased Recommendations: Pulmonary toilet and incentive spirometry. Decision to remove chest tubes per CT surgery. Patient should be mobilized out of bed Taper FiO2 his saturations allow
--- NOTE | 2017-06-26 10:46 | PN- Att Addend ---
Attending Addendum Attending Brief Note Patient comfortable in bed, when asked she says she is in pain, no acute distress. One of the chest tubes was discontinued I still in for her pleural effusion drainage. Her vital signs are stable no fever leukocytosis is improved now down to 16,600 was a little hypoglycemic endocrinology adjusted her medications were also adjusted for her chronic pain meds trying to give her a little less if possible and keep treating her pneumonia. Intake & Output 06/26 1600 06/26 0400 06/25 1600 06/25 0400 06/24 1600 06/24 0400 Intake Total 317 610 3094 540 2127 1120 Output Total 100 6123 860 4322 1235 Balance 260 200 35 -345 882 -115 Intake, IV 120 200 250 100 927 370 Intake, Oral 240 8719 316 3520 750 Number 0 Bowel Movements Output, Chest 100 135 70 245 500 Tube Drainage Output, Urine 2903 903 5742 735 Patient 238 lb 234 lb 244 lb Weight Weight Bed scale Bed scale Bed scale Measurement Method Current Medications Sig/Suleman Start time Last Medication Dose Route Stop Time Status Admin Acetaminophen 1,000 MG .STK-MED ONE 06/25 1526 DC IV 06/25 1527 Acetaminophen 1,000 MG Q6P PRN 06/19 1130 AC 06/25 N/A 1 UNIT IV 1527 Albuterol Sulfate 3 ML Q4 06/23 1800 AC 06/26 INH 0829 Ampicillin Sodium/ 3,000 MG Q8H 06/23 1600 AC 06/26 Sulbactam Sodium IV 0754 Sodium Chloride 100 ML Aspirin 325 MG DAILY 06/25 1145 AC 06/26 PO 0919 Atorvastatin Calcium 40 MG 1700 06/15 1700 AC 06/25 PO 1653 Calcium Carbonate 500 MG DAILY 06/21 1000 AC 06/26 PO 0920 Dextrose 25 GM ONCE ONE 06/25 2115 DC 06/25 IV 06/25 2116 2153 Docusate Sodium 100 MG BID 06/12 2359 AC 06/26 PO 0920 Furosemide 40 MG DAILY 06/13 1000 AC 06/26 PO 0919 Hydromorphone HCl 0.8 MG ONCE ONE 06/25 1415 DC 06/25 IV 06/25 1416 1230 Hydromorphone HCl 2 MG ONCE PRN 06/25 1415 DC 06/25 IV 1411 Hydromorphone HCl 1.2 MG Q4-6 PRN PRN 06/24 1100 AC 06/25 IV 1132 Insulin Aspart 0 TIDAC/HS 06/24 1200 AC 06/25 SC 1653 Insulin Detemir 22 UNITS BID 06/26 1000 AC 06/26 SC 0920 Insulin Detemir 26 UNITS BID 06/24 2200 DC 06/25 SC 0912 Lidocaine 1 PAT DAILY@1700 06/20 1700 AC 06/25 EXT 1655 Melatonin 5 MG AT BEDTIME 06/21 2200 AC 06/25 PO 2153 Nitroglycerin 0.5 GM Q6P PRN 06/15 1830 AC TOP Oxycodone HCl 40 MG Q12 06/25 2200 AC 06/26 PO 0919 Oxycodone HCl 20 MG .STK-MED ONE 06/25 1308 DC PO 06/25 1309 Oxycodone HCl 10 MG Q4P PRN 06/23 1730 AC 06/25 PO 0944 Oxycodone HCl 20 MG Q4P PRN 06/23 1730 AC 06/26 PO 0945 Pregabalin 75 MG BID 06/13 2200 AC 06/26 PO 0919 Tiotropium [place] 1 PUF DAILY 06/14 1000 AC 06/26 INH 0920 Laboratory Tests 06/26/17 0407: Anion Gap 14, Estimated GFR 14 L, Glucose 70, Calcium 9.0, Phosphorus 8.1 H, Magnesium 2.0, Total Bilirubin 0.4, AST 18, ALT 29, Albumin 2.5 L, CBC w Diff NO MAN DIFF REQ, RBC 2.47 L, MCV 95.3, MCH 31.9 H, RDW 17.9 H, MPV 7.1 L, Gran % 86.4 H, Lymphocytes % 6.5 L, Monocytes % 4.5, Eosinophils % 2.1, Basophils % 0.5, Absolute Granulocytes 14.4 H, Absolute Lymphocytes 1.1 L, Absolute Monocytes 0.8 H, Absolute Eosinophils 0.3, Absolute Basophils 0.1, PUBS MCHC 33.5 06/25/17 0535: Anion Gap 13, Estimated GFR 16 L, Glucose 120 H, Calcium 8.5, Phosphorus 7.6 H, Magnesium 1.9, Total Bilirubin 0.3, AST 20, ALT 32, Albumin 2.3 L, CBC w Diff MAN DIFF ORDERED, RBC 2.52 L, MCV 94.2, MCH 32.2 H, RDW 18.1 H, MPV 7.0 L, Gran % 88.5 H, Lymphocytes % 4.5 L, Monocytes % 4.9, Eosinophils % 1.9, Basophils % 0.2, Absolute Granulocytes 18.3 H, Segmented Neutrophils 89 H, Absolute Lymphocytes 0.9 L, Lymphocytes 5 L, Monocytes 4, Absolute Monocytes 1.0 H, Eosinophils 1, Absolute Eosinophils 0.4, Basophils 1, Absolute Basophils 0, Platelet Estimate ADEQUATE, Polychromasia 1+, Basophilic Stippling SLIGHT, Ovalocytes FEW, Stomatocytes FEW, PUBS MCHC 34.1, Fld Total RBCs Counted 100 06/24/17 0355: Anion Gap 13, Estimated GFR 17 L, Glucose 126 H, Calcium 8.6, Phosphorus 6.7 H, Magnesium 1.6, Total Bilirubin 0.3, AST 29, ALT 48, Albumin 2.5 L, CBC w Diff MAN DIFF ORDERED, RBC 2.88 L, MCV 93.8, MCH 31.8 H, RDW 18.3 H, MPV 7.3 L, Gran % 92.5 H, Lymphocytes % 3.4 L, Monocytes % 3.9, Eosinophils % 0.2, Basophils % 0, Absolute Granulocytes 29.7 H, Segmented Neutrophils 94 H, Absolute Lymphocytes 1.1 L, Lymphocytes 1 L, Monocytes 5, Absolute Monocytes 1.2 H, Absolute Eosinophils 0.1, Absolute Basophils 0, Platelet Estimate ADEQUATE, Polychromasia 1+, Basophilic Stippling SLIGHT, Anisocytosis 1+, Stomatocytes 1+, PUBS MCHC 33.9 06/23/17 1709: Anion Gap 10, Estimated GFR 19 L, BUN/Creatinine Ratio 16.2, CBC w Diff MAN DIFF ORDERED, RBC 2.92 L, MCV 93.6, MCH 31.6 H, RDW 17.6 H, MPV 7.0 L, Gran % 96.3 H, Lymphocytes % 1.8 L, Monocytes % 1.8, Eosinophils % 0.1, Basophils % 0, Absolute Granulocytes 32.4 H, Absolute Lymphocytes 0.6 L, Absolute Monocytes 0.6, Absolute Eosinophils 0, Absolute Basophils 0, Platelet Estimate ADEQUATE, Anisocytosis 1+, PUBS MCHC 33.8 Microbiology 06/23 1655 UPPER RESP: Surveillance Culture - COMP 06/23 1309 MISC O.R.: Miscellaneous Culture - CAN Cancelled: OE 06/23 1309 MISC O.R.: Gram Stain - CAN Cancelled: OE 06/23 1309 BODY FLUID: Body Fluid Culture - COMP 06/23 1309 BODY FLUID: Gram Stain - COMP 06/23 1309 BODY FLUID: AFB Culture with PCR Identification - RES 06/23 1309 BODY FLUID: AFB Smear Concentration - RES 06/23 1309 BODY FLUID: Fungal Culture - RECD Microbiology 06/23 1655 UPPER RESP: Surveillance Culture - COMP 06/23 1309 MISC O.R.: Miscellaneous Culture - CAN Cancelled: OE 06/23 1309 MISC O.R.: Gram Stain - CAN Cancelled: OE 06/23 1309 BODY FLUID: Body Fluid Culture - COMP 06/23 1309 BODY FLUID: Gram Stain - COMP 06/23 1309 BODY FLUID: AFB Culture with PCR Identification - RES 06/23 1309 BODY FLUID: AFB Smear Concentration - RES 06/23 1309 BODY FLUID: Fungal Culture - RECD Vital Signs Date Time Temp Pulse Resp B/P B/P Pulse O2 O2 Flow FiO2 Mean Ox Delivery Rate 06/26 0831 95 Nasal 2.0L Cannula 06/26 0800 97.1 70 26 162/60 96 Nasal 2.0L Cannula 06/26 0800 96 Nasal 3.0L Cannula 06/26 0404 93 Nasal 3.0L Cannula 06/26 0400 95 Nasal 3.0L Cannula 06/26 0000 94 Nasal 3.0L Cannula 06/25 2300 97.0 76 14 138/60 94 Nasal 3.0L Cannula 06/25 2000 98 Nasal 3.0L Cannula 06/25 1800 94 Nasal 3.0L Cannula 06/25 1600 94 Nasal 3.0L Cannula 06/25 1600 97.1 81 20 144/84 94 Nasal 3.0L Cannula 06/25 1433 Nasal 3.0L Cannula 06/25 1200 94 Nasal 3.0L Cannula 06/25 1200 98.3 80 18 140/60 95 Room Air
--- NOTE | 2017-06-26 11:36 | PN- Infect Dx ---
Subjective Subjective: Afebrile. She feels better with decreased pain in the right chest. One chest tube was removed yesterday. Objective Last 24 Hrs of Vital Signs/I&O Vital Signs Date Time Temp Pulse Resp B/P B/P Pulse O2 O2 Flow FiO2 Mean Ox Delivery Rate 06/26 0731 95 Nasal 2.0L Cannula 06/26 08 97.1 70 26 162/60 96 Nasal 2.0L Cannula 06/26 08 96 Nasal 3.0L Cannula 06/26 0404 93 Nasal 3.0L Cannula 06/26 040 95 Nasal 3.0L Cannula 06/26 0000 94 Nasal 3.0L Cannula 06/25 2300 97.0 76 14 138/60 94 Nasal 3.0L Cannula 06/25 2000 98 Nasal 3.0L Cannula 06/25 1800 94 Nasal 3.0L Cannula 06/25 1600 94 Nasal 3.0L Cannula 06/25 1600 97.1 81 20 144/84 94 Nasal 3.0L Cannula 06/25 1433 Nasal 3.0L Cannula 06/25 1200 94 Nasal 3.0L Cannula 06/25 1200 98.3 80 18 140/60 95 Room Air Intake & Output 06/26 1600 06/26 0800 06/26 0000 Intake Total 360 200 Output Total 100 Balance 260 200 Intake, IV 120 200 Intake, Oral 240 Output, Chest 100 Tube Drainage Patient 238 lb Weight Weight Bed scale Measurement Method Physical Exam Other Physical Findings: She appears more comfortable in no acute distress Lungs bibasilar crackles, with slightly decreased breath sounds at the right base; one chest tube remains in place with 100 mL output overnight Heart regular rhythm with no murmur Extremities right leg with chronic venous stasis changes Results Last 24 Hours of Lab Results: Laboratory Tests 06/26 406 Chemistry Sodium (137 - 145 mmol/L) 142 Potassium (3.5 - 5.1 mmol/L) 4.5 Chloride (98 - 107 mmol/L) 107 Carbon Dioxide (22 - 30 mmol/L) 20 L Anion Gap (5 - 16) 14 BUN (7 - 17 mg/dL) 40 H Creatinine (0.5 - 1.0 mg/dL) 3.4 H Estimated GFR (>60 ml/min) 14 L Glucose (65 - 99 mg/dL) 70 Calcium (8.4 - 10.2 mg/dL) 9.0 Phosphorus (2.5 - 4.5 mg/dL) 8.1 H Magnesium (1.6 - 2.3 mg/dL) 2.0 Total Bilirubin (0.2 - 1.3 mg/dL) 0.4 AST (14 - 36 U/L) 18 ALT (9 - 52 U/L) 29 Albumin (3.5 - 5.0 g/dL) 2.5 L Hematology CBC w Diff NO MAN DIFF REQ WBC (4.8 - 10.8 /CUMM) 16.6 H RBC (4.20 - 5.40 /CUMM) 2.47 L Hgb (12.0 - 16.0 G/DL) 7.9 L Hct (37 - 47 %) 23.5 L MCV (81.0 - 99.0 FL) 95.3 MCH (27.0 - 31.0 PG) 31.9 H RDW (11.5 - 14.5 %) 17.9 H Plt Count (130 - 400 /CUMM) 366 MPV (7.4 - 10.4 FL) 7.1 L Gran % (42.2 - 75.2 %) 86.4 H Lymphocytes % (20.5 - 51.1 %) 6.5 L Monocytes % (1.7 - 9.3 %) 4.5 Eosinophils % (0 - 5 %) 2.1 Basophils % (0.0 - 2.0 %) 0.5 Absolute Granulocytes (1.4 - 6.5 /CUMM) 14.4 H Absolute Lymphocytes (1.2 - 3.4 /CUMM) 1.1 L Absolute Monocytes (0.10 - 0.60 /CUMM) 0.8 H Absolute Eosinophils (0.0 - 0.7 /CUMM) 0.3 Absolute Basophils (0.0 - 0.2 /CUMM) 0.1 PUBS MCHC (33.0 - 37.0 G/DL) 33.5 Last 24 Hours of Drew Results: OR culture June 23 labeled right chest fluid negative, with AFB smear negative Urine culture June 23 negative Recent Imaging Studies: Chest x-ray June 26, personally reviewed, reveals no significant change in the loculated right pleural effusion; patchy opacities in the aerated portions of the right lung and the left lung unchanged Assessment/Plan Impression: Improving status post right thoracotomy with drainage of an empyema and decortication of the right lower lobe 3 days ago, with temperatures remaining normal and with white blood cell count decreasing on Unasyn for an empyema secondary to Haemophilus influenzae, which was isolated from her initial blood cultures. Suggestion: 1. Further management of her right chest tube and loculated effusion per Thoracic surgery 2. Continue Unasyn
[2017-06-26 12:00] VITALS: BP 158/60
[2017-06-26 16:00] VITALS: BP 140/60
--- NOTE | 2017-06-26 16:41 | PN- Nephrology ---
Assessment/Plan Assessment: 1. Acute kidney injury likely secondary to prerenal factors 2. 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 Pneumonia with empyema status post right thoracotomy with drainage of an empyema and decortication of the right lower lobe 4. Haemophilus influenza bacteremia 5. Peripheral vascular disease status post left BKA Suggestion: 1. Suggest gentle hydration using normal saline at 50-75 mL per hour and reassess tomorrow 2. Continue to monitor chemistries, fluid balance daily 3. Avoid potential nephrotoxins including NSAIDs and parenteral contrast 4. Should renal function continued to worsen will need to consider possibility of AIN Subjective Subjective: The patient feels better following removal of one chest tube. She remains afebrile with a WBC level that continues to fall. Serum creatinine up to 3.4 today from 2.9 yesterday. Electrolytes okay. Urine output remains good. Objective Vital Signs and I&Os Vital Signs Date Time Temp Pulse Resp B/P B/P Pulse O2 O2 Flow FiO2 Mean Ox Delivery Rate 06/26 1200 97.4 65 20 158/60 92 Nasal 2.0L Cannula 06/26 0831 95 Nasal 2.0L Cannula 06/26 0800 97.1 70 26 162/60 96 Nasal 2.0L Cannula 06/26 0800 96 Nasal 3.0L Cannula 06/26 0404 93 Nasal 3.0L Cannula 06/26 0400 95 Nasal 3.0L Cannula 06/26 0000 94 Nasal 3.0L Cannula 06/25 2300 97.0 76 14 138/60 94 Nasal 3.0L Cannula 06/25 2000 98 Nasal 3.0L Cannula 06/25 1800 94 Nasal 3.0L Cannula Intake & Output 06/26 1600 06/26 0400 06/25 1600 06/25 0400 06/24 1600 06/24 0400 Intake Total 2190 200 4416 351 8422 1120 Output Total 540 7574 223 1312 1235 Balance 1650 200 35 -345 882 -115 Intake, IV 250 200 250 100 927 370 Intake, Oral 1940 1503 959 9639 750 Number 0 Bowel Movements Output, Chest 140 135 70 245 500 Tube Drainage Output, Urine 400 0936 847 3200 735 Patient 238 lb 234 lb 244 lb Weight Weight Bed scale Bed scale Bed scale Measurement Method Physical Exam: General: Well-developed, obese white female in NAD Skin: No rash or jaundice HEENT: Conjunctivae pale, sclerae anicteric, mucous membranes moist Neck: Without masses or thyromegaly, no supraclavicular or cervical adenopathy Chest: Coarse breath sounds on right Heart: Regular rate and rhythm without S3 or rub Abdomen: Obese, soft and nontender without palpable masses or organomegaly Extremities: Left BKA with chronic stasis changes on the right; no significant edema Neuro: No focal findings, no asterixis or myoclonus Results Pertinent Lab Results: Laboratory Tests 06/26 06/25 0407 0535 Chemistry Sodium (137 - 145 mmol/L) 142 141 Potassium (3.5 - 5.1 mmol/L) 4.5 4.5 Chloride (98 - 107 mmol/L) 107 107 Carbon Dioxide (22 - 30 mmol/L) 20 L 21 L Anion Gap (5 - 16) 14 13 BUN (7 - 17 mg/dL) 40 H 42 H Creatinine (0.5 - 1.0 mg/dL) 3.4 H 2.9 H Estimated GFR (>60 ml/min) 14 L 16 L Glucose (65 - 99 mg/dL) 70 120 H Calcium (8.4 - 10.2 mg/dL) 9.0 8.5 Phosphorus (2.5 - 4.5 mg/dL) 8.1 H 7.6 H Magnesium (1.6 - 2.3 mg/dL) 2.0 1.9 Total Bilirubin (0.2 - 1.3 mg/dL) 0.4 0.3 AST (14 - 36 U/L) 18 20 ALT (9 - 52 U/L) 29 32 Albumin (3.5 - 5.0 g/dL) 2.5 L 2.3 L Hematology CBC w Diff NO MAN DIFF REQ MAN DIFF ORDERED WBC (4.8 - 10.8 /CUMM) 16.6 H 20.7 H RBC (4.20 - 5.40 /CUMM) 2.47 L 2.52 L Hgb (12.0 - 16.0 G/DL) 7.9 L 8.1 L Hct (37 - 47 %) 23.5 L 23.7 L MCV (81.0 - 99.0 FL) 95.3 94.2 MCH (27.0 - 31.0 PG) 31.9 H 32.2 H RDW (11.5 - 14.5 %) 17.9 H 18.1 H Plt Count (130 - 400 /CUMM) 366 337 MPV (7.4 - 10.4 FL) 7.1 L 7.0 L Gran % (42.2 - 75.2 %) 86.4 H 88.5 H Lymphocytes % (20.5 - 51.1 %) 6.5 L 4.5 L Monocytes % (1.7 - 9.3 %) 4.5 4.9 Eosinophils % (0 - 5 %) 2.1 1.9 Basophils % (0.0 - 2.0 %) 0.5 0.2 Absolute Granulocytes (1.4 - 6.5 /CUMM) 14.4 H 18.3 H Segmented Neutrophils (42.2 - 75.2 %) 89 H Absolute Lymphocytes (1.2 - 3.4 /CUMM) 1.1 L 0.9 L Lymphocytes (20.5 - 51.1 %) 5 L Monocytes (1.7 - 9.3 %) 4 Absolute Monocytes (0.10 - 0.60 /CUMM) 0.8 H 1.0 H Eosinophils (0 - 5.0 %) 1 Absolute Eosinophils (0.0 - 0.7 /CUMM) 0.3 0.4 Basophils (0.0 - 2.0 %) 1 Absolute Basophils (0.0 - 0.2 /CUMM) 0.1 0 Platelet Estimate (ADEQUATE) ADEQUATE Polychromasia 1+ Basophilic Stippling SLIGHT Ovalocytes FEW Stomatocytes FEW PUBS MCHC (33.0 - 37.0 G/DL) 33.5 34.1 Other Body Source Fld Total RBCs Counted (%) 100 06/24 06/23 0355 1709 Chemistry Sodium (137 - 145 mmol/L) 139 137 Potassium (3.5 - 5.1 mmol/L) 4.4 4.4 Chloride (98 - 107 mmol/L) 107 109 H Carbon Dioxide (22 - 30 mmol/L) 19 L 18 L Anion Gap (5 - 16) 13 10 BUN (7 - 17 mg/dL) 39 H 42 H Creatinine (0.5 - 1.0 mg/dL) 2.8 H 2.6 H Estimated GFR (>60 ml/min) 17 L 19 L BUN/Creatinine Ratio (7 - 25 %) 16.2 Glucose (65 - 99 mg/dL) 126 H Calcium (8.4 - 10.2 mg/dL) 8.6 Phosphorus (2.5 - 4.5 mg/dL) 6.7 H Magnesium (1.6 - 2.3 mg/dL) 1.6 Total Bilirubin (0.2 - 1.3 mg/dL) 0.3 AST (14 - 36 U/L) 29 ALT (9 - 52 U/L) 48 Albumin (3.5 - 5.0 g/dL) 2.5 L Hematology CBC w Diff MAN DIFF ORDERED MAN DIFF ORDERED WBC (4.8 - 10.8 /CUMM) 32.2 *H 33.7 *H RBC (4.20 - 5.40 /CUMM) 2.88 L 2.92 L Hgb (12.0 - 16.0 G/DL) 9.1 L 9.2 L Hct (37 - 47 %) 27.0 L 27.3 L MCV (81.0 - 99.0 FL) 93.8 93.6 MCH (27.0 - 31.0 PG) 31.8 H 31.6 H RDW (11.5 - 14.5 %) 18.3 H 17.6 H Plt Count (130 - 400 /CUMM) 369 368 MPV (7.4 - 10.4 FL) 7.3 L 7.0 L Gran % (42.2 - 75.2 %) 92.5 H 96.3 H Lymphocytes % (20.5 - 51.1 %) 3.4 L 1.8 L Monocytes % (1.7 - 9.3 %) 3.9 1.8 Eosinophils % (0 - 5 %) 0.2 0.1 Basophils % (0.0 - 2.0 %) 0 0 Absolute Granulocytes (1.4 - 6.5 /CUMM) 29.7 H 32.4 H Segmented Neutrophils (42.2 - 75.2 %) 94 H Absolute Lymphocytes (1.2 - 3.4 /CUMM) 1.1 L 0.6 L Lymphocytes (20.5 - 51.1 %) 1 L Monocytes (1.7 - 9.3 %) 5 Absolute Monocytes (0.10 - 0.60 /CUMM) 1.2 H 0.6 Absolute Eosinophils (0.0 - 0.7 /CUMM) 0.1 0 Absolute Basophils (0.0 - 0.2 /CUMM) 0 0 Platelet Estimate (ADEQUATE) ADEQUATE ADEQUATE Polychromasia 1+ Basophilic Stippling SLIGHT Anisocytosis 1+ 1+ Stomatocytes 1+ PUBS MCHC (33.0 - 37.0 G/DL) 33.9 33.8
--- NOTE | 2017-06-26 20:02 | PN- Cardiology ---
Subjective Subjective: * Patient is now status post chest tube placement with drainage of serosanguineous fluid following empyema drainage with lung decortication. One chest tube removed. On Unasyn for Haemophilus influenza. * Less shortness of breath but right sided chest discomfort persists. * creatinine increased to 3.4 * Decreasing WBC count. Decreased H/H. Objective Vital Signs and I&Os Vital Signs Date Time Temp Pulse Resp B/P B/P Pulse O2 O2 Flow FiO2 Mean Ox Delivery Rate 06/26 1816 94 Nasal 2.0L Cannula 06/26 1600 93 Nasal 2.0L Cannula 06/26 1600 97.3 84 18 140/60 93 Nasal 2.0L Cannula 06/26 1200 97.4 65 20 158/60 92 Nasal 2.0L Cannula 06/26 0831 95 Nasal 2.0L Cannula 06/26 0800 97.1 70 26 162/60 96 Nasal 2.0L Cannula 06/26 0800 96 Nasal 3.0L Cannula 06/26 0404 93 Nasal 3.0L Cannula 06/26 0400 95 Nasal 3.0L Cannula 06/26 0000 94 Nasal 3.0L Cannula 06/25 2300 97.0 76 14 138/60 94 Nasal 3.0L Cannula 06/25 2000 98 Nasal 3.0L Cannula Intake & Output 06/26 1600 06/26 0800 06/26 0000 06/25 1600 06/25 0800 06/25 0000 Intake Total 1830 851 553 1855 500 540 Output Total 440 100 765 850 885 Balance 1390 260 200 385 -350 -345 Intake, IV 130 120 200 150 100 100 Intake, Oral 9666 920 9783 400 440 Output, Chest 40 100 65 70 70 Tube Drainage Output, Urine 400 700 780 815 Patient 238 lb 234 lb Weight Weight Bed scale Bed scale Measurement Method Physical Exam: General: WD/obese female in NAD; alert and oriented x 3 Heart: RRR w/o murmur Lungs: no crackles or wheezing, chest tube on right Extremities: no edema on right, Left AKA Assessment/Plan Assessment/Plan * This obese and inactive female has evidence of lower extremity thrombosis without findings of a true DVT. I suspect that her small rise in cardiac enzymes is related to a PE. A V/Q scan is consistent with this diagnosis. Her low O2 saturation, shortness of breath and pleuritic pain are consistent with this diagnosis although her diagnosis of empyema will also give similar symptoms. She does have an IVC filter which helps but is not 100% reliable for preventing a PE and it does not help with lower extremity thrombosis. Anticoagulation being held at present due to recent surgery and low H/H. * In consideration of the patient's multiple risk factors for coronary artery disease myocardial ischemia related to increased myocardial demand cannot be 100 % excluded and the patient should have risk stratification with a stress test at some point in time. In the meantime, continue IV heparin and aspirin. Continue a statin. If precordial chest pain then begin NTG paste 1/2 inch Q 6 hours. Continue telemetry? Yes
[2017-06-27] VITALS: BP 130/60
[2017-06-27 05:38] LABS: ABSOLUTE BASOPHIL COUNT 0.1 /CUMM (0.0-0.2); ABSOLUTE EOSINOPHIL COUNT 0.4 /CUMM (0.0-0.7); ABSOLUTE GRANULOCYTE CT 12.2 /CUMM (1.4-6.5); ABSOLUTE LYMPH COUNT 1.2 /CUMM (1.2-3.4); ABSOLUTE MONOCYTE COUNT 0.5 /CUMM (0.10-0.60); BASOPHIL % 0.4 % (0.0-2.0); EOSINOPHIL % 2.7 % (0-5); GRANULOCYTE % 85.1 % (42.2-75.2); HEMATOCRIT 21.8 % (37-47); MEAN CORPUSCULAR HGB 31.7 PG (27.0-31.0); MEAN CORPUSCULAR HGB CONC 33.5 G/DL (33.0-37.0); MEAN CORPUSCULAR VOLUME 94.6 FL (81.0-99.0); MEAN PLATELET VOLUME 7.2 FL (7.4-10.4); PLATELET COUNT 405 /CUMM (130-400); RBC DISTRIBUTION WIDTH 17.7 % (11.5-14.5); RED BLOOD CELL CT 2.31 /CUMM (4.20-5.40); WHITE BLOOD CELL COUNT 14.4 /CUMM (4.8-10.8)
--- NOTE | 2017-06-27 05:51 | PN- Thoracic Surgery ---
Subjective Subjective: No acute events overnight. [address]. Pt complaining of moderate pain around of right lateral thorax. No cp, sob, n/v. Objective Vital Signs and I&Os Vital Signs Date Time Temp Pulse Resp B/P B/P Pulse O2 O2 Flow FiO2 Mean Ox Delivery Rate 06/27 0000 97.9 66 20 130/60 95 Nasal 2.0L Cannula 06/27 0000 95 Nasal 2.0L Cannula 06/26 1816 94 Nasal 2.0L Cannula 06/26 1600 93 Nasal 2.0L Cannula 06/26 1600 97.3 84 18 140/60 93 Nasal 2.0L Cannula 06/26 1200 97.4 65 20 158/60 92 Nasal 2.0L Cannula 06/26 0831 95 Nasal 2.0L Cannula 06/26 0800 97.1 70 26 162/60 96 Nasal 2.0L Cannula 06/26 0800 96 Nasal 3.0L Cannula Intake & Output 06/27 0800 06/27 0000 06/26 1600 06/26 0800 06/26 0000 06/25 1600 Intake Total 1980 1830 274 097 3371 Output Total 200 440 100 765 Balance 1780 1390 260 200 385 Intake, IV 280 130 120 200 150 Intake, Oral 1700 1432 032 1790 Output, Chest 40 100 65 Tube Drainage Output, Urine 200 400 700 Patient 238 lb 234 lb Weight Weight Bed scale Bed scale Measurement Method Physical Exam: General: aox3, nad on 02 via nc. O2 sat 96% heart: rrr Lungs: L side clear apical, diminished with crackles base. Right lung sifuentes decreased dressing with dry s/s drainage. CT with output of 140ml in 24hours, 20ml overnight. remains on LCWS Current Medications: Current Medications Sig/Suleman Start time Last Medication Dose Route Stop Time Status Admin Acetaminophen 1,000 MG Q6P PRN 06/19 1130 AC 06/25 N/A 1 UNIT IV 1527 Albuterol Sulfate 3 ML EVERY 4 HRS/AWAKE 06/26 1234 AC 06/26 INH 2151 Albuterol Sulfate 3 ML Q4 06/23 1800 DC 06/26 INH 0829 Ampicillin Sodium/ 3,000 MG Q8H 06/23 1600 AC 06/27 Sulbactam Sodium IV 0040 Sodium Chloride 100 ML Aspirin 325 MG DAILY 06/25 1145 AC 06/26 PO 0919 Atorvastatin Calcium 40 MG 1700 06/15 1700 AC 06/26 PO 1644 Calcium Carbonate 500 MG DAILY 06/21 1000 AC 06/27 PO 0211 Docusate Sodium 100 MG BID 06/12 2359 AC 06/26 PO 2211 Furosemide 40 MG DAILY 06/13 1000 DC 06/26 PO 0919 Hydromorphone HCl 2 MG ONCE PRN 06/25 1415 DC 06/25 IV 1411 Hydromorphone HCl 1.2 MG Q4-6 PRN PRN 06/24 1100 AC 06/27 IV 0522 Insulin Aspart 0 TIDAC/HS 06/24 1200 AC 06/26 SC 2112 Insulin Detemir 22 UNITS BID 06/26 1000 AC 06/26 SC 2211 Insulin Detemir 26 UNITS BID 06/24 2200 DC 06/25 SC 0912 Lidocaine 1 PAT DAILY@1700 06/20 1700 AC 06/26 EXT 1644 Melatonin 5 MG AT BEDTIME 06/21 2200 AC 06/26 PO 2212 Nitroglycerin 0.5 GM Q6P PRN 06/15 1830 TOP Oxycodone HCl 20 MG .STK-MED ONE 06/26 1345 DC PO 06/26 1346 Oxycodone HCl 20 MG .STK-MED ONE 06/26 0945 DC PO 06/26 0946 Oxycodone HCl 40 MG Q12 06/25 2200 AC 06/26 PO 2212 Oxycodone HCl 10 MG Q4P PRN 06/23 1730 AC 06/25 PO 0944 Oxycodone HCl 20 MG Q4P PRN 06/23 1730 AC 06/27 PO 0257 Pregabalin 75 MG BID 06/13 2200 AC 06/26 PO 2212 Ramelteon 8 MG ONCE ONE 06/27 0115 CAN PO 06/27 0116 Sodium Chloride 2 SPRAY Q4P PRN 06/27 0015 AC 06/27 TREY 0209 Sodium Chloride 1,000 ML Q13H 06/26 1900 AC 06/26 IV 2114 Tiotropium [place] 1 PUF DAILY 06/14 1000 AC 06/26 INH 0920 Results Last 48 Hours of Labs: Laboratory Tests 06/27 06/26 0500 0407 Chemistry Sodium (137 - 145 mmol/L) Pending 142 Potassium (3.5 - 5.1 mmol/L) Pending 4.5 Chloride (98 - 107 mmol/L) Pending 107 Carbon Dioxide (22 - 30 mmol/L) Pending 20 L Anion Gap (5 - 16) Pending 14 BUN (7 - 17 mg/dL) Pending 40 H Creatinine (0.5 - 1.0 mg/dL) Pending 3.4 H Estimated GFR (>60 ml/min) 14 L Glucose (65 - 99 mg/dL) Pending 70 Calcium (8.4 - 10.2 mg/dL) Pending 9.0 Phosphorus (2.5 - 4.5 mg/dL) Pending 8.1 H Magnesium (1.6 - 2.3 mg/dL) Pending 2.0 Total Bilirubin (0.2 - 1.3 mg/dL) Pending 0.4 AST (14 - 36 U/L) Pending 18 ALT (9 - 52 U/L) Pending 29 Albumin (3.5 - 5.0 g/dL) Pending 2.5 L Hematology CBC w Diff Pending NO MAN DIFF REQ WBC (4.8 - 10.8 /CUMM) Pending 16.6 H RBC (4.20 - 5.40 /CUMM) Pending 2.47 L Hgb (12.0 - 16.0 G/DL) Pending 7.9 L Hct (37 - 47 %) Pending 23.5 L MCV (81.0 - 99.0 FL) Pending 95.3 MCH (27.0 - 31.0 PG) Pending 31.9 H RDW (11.5 - 14.5 %) Pending 17.9 H Plt Count (130 - 400 /CUMM) Pending 366 MPV (7.4 - 10.4 FL) Pending 7.1 L Gran % (42.2 - 75.2 %) Pending 86.4 H Lymphocytes % (20.5 - 51.1 %) Pending 6.5 L Monocytes % (1.7 - 9.3 %) Pending 4.5 Eosinophils % (0 - 5 %) Pending 2.1 Basophils % (0.0 - 2.0 %) Pending 0.5 Absolute Granulocytes (1.4 - 6.5 /CUMM) Pending 14.4 H Absolute Lymphocytes (1.2 - 3.4 /CUMM) Pending 1.1 L Absolute Monocytes (0.10 - 0.60 /CUMM) Pending 0.8 H Absolute Eosinophils (0.0 - 0.7 /CUMM) Pending 0.3 Absolute Basophils (0.0 - 0.2 /CUMM) Pending 0.1 PUBS MCHC (33.0 - 37.0 G/DL) Pending 33.5 Assessment/Plan Assessment/Plan A- POD4 sp R thoracotomy/decortication for empyema P- Keep CTx1 to LCWS for now Obtain daily chest xray while tube is in place still with s/s drainage from tube Hold anticoagulation for now per Dr. Rebolledo pain control Resp tx, titrate o2 as able medical care per primary team. Core Measures Venous Thromboembolism VTE Risk Factors Acute Medical Illness No Mechanical VTE Prophylaxis d/t Physical Contraindication No VTE Pharm Prophylaxis d/t NA PharmProphylax ordered
[2017-06-27 08:00] VITALS: BP 130/46
--- NOTE | 2017-06-27 08:15 | PN- Resident CRCU ---
Manolo Greenwood 06/27/17 0815: Subjective HPI/CRCU Issues: POD 3 s/p R thoracotomy/decortication for empyema 24 Hour Events: Seen and examined patient, sitting in chair by bed. Complaining of not getting enough sleep last night. Denies shortness of breath, chest pain, abdominal pain. Objective Vital Signs & I&O Last 8 Hrs of Vitals and I&O: Intake & Output 06/27 1600 06/27 0800 06/27 0000 Intake Total 1015 1980 Output Total 20 200 Balance 995 1780 Intake, IV 715 280 Intake, Oral 300 1700 Output, Chest 20 Tube Drainage Output, Urine 200 Laboratory Tests 06/27 0500 Chemistry Sodium (137 - 145 mmol/L) 138 Potassium (3.5 - 5.1 mmol/L) 4.2 Chloride (98 - 107 mmol/L) 103 Carbon Dioxide (22 - 30 mmol/L) 23 Anion Gap (5 - 16) 12 BUN (7 - 17 mg/dL) 52 H Creatinine (0.5 - 1.0 mg/dL) 3.3 H Estimated GFR (>60 ml/min) 14 L Glucose (65 - 99 mg/dL) 190 H Calcium (8.4 - 10.2 mg/dL) 8.5 Phosphorus (2.5 - 4.5 mg/dL) 5.8 H Magnesium (1.6 - 2.3 mg/dL) 1.8 Total Bilirubin (0.2 - 1.3 mg/dL) 0.3 AST (14 - 36 U/L) 15 ALT (9 - 52 U/L) 25 Albumin (3.5 - 5.0 g/dL) 2.5 L Hematology CBC w Diff MAN DIFF ORDERED WBC (4.8 - 10.8 /CUMM) 14.4 H RBC (4.20 - 5.40 /CUMM) 2.31 L Hgb (12.0 - 16.0 G/DL) 7.3 *L Hct (37 - 47 %) 21.8 L MCV (81.0 - 99.0 FL) 94.6 MCH (27.0 - 31.0 PG) 31.7 H RDW (11.5 - 14.5 %) 17.7 H Plt Count (130 - 400 /CUMM) 405 H MPV (7.4 - 10.4 FL) 7.2 L Gran % (42.2 - 75.2 %) 85.1 H Lymphocytes % (20.5 - 51.1 %) 8.4 L Monocytes % (1.7 - 9.3 %) 3.4 Eosinophils % (0 - 5 %) 2.7 Basophils % (0.0 - 2.0 %) 0.4 Absolute Granulocytes (1.4 - 6.5 /CUMM) 12.2 H Segmented Neutrophils (42.2 - 75.2 %) 79 H Band Neutrophils (0.0 - 5.0 %) 1 Absolute Lymphocytes (1.2 - 3.4 /CUMM) 1.2 Lymphocytes (20.5 - 51.1 %) 8 L Monocytes (1.7 - 9.3 %) 7 Absolute Monocytes (0.10 - 0.60 /CUMM) 0.5 Eosinophils (0 - 5.0 %) 5 Absolute Eosinophils (0.0 - 0.7 /CUMM) 0.4 Absolute Basophils (0.0 - 0.2 /CUMM) 0.1 Platelet Estimate (ADEQUATE) INCREASED Polychromasia 1+ Basophilic Stippling SLIGHT Ovalocytes FEW PUBS MCHC (33.0 - 37.0 G/DL) 33.5 Other Body Source Fld Total RBCs Counted (%) 100 Exam General Appearance: alert, awake, comfortable Respiratory: normal breath sounds Cardiovascular: regular rate/rhythm Current Medications: Current Medications Sig/Suleman Start time Last Medication Dose Route Stop Time Status Admin Acetaminophen 1,000 MG Q6P PRN 06/19 1130 AC 06/25 N/A 1 UNIT IV 1527 Albuterol Sulfate 3 ML EVERY 4 HRS/AWAKE 06/26 1234 AC 06/27 INH 1002 Albuterol Sulfate 3 ML Q4 06/23 1800 DC 06/26 INH 0829 Ampicillin Sodium/ 3,000 MG Q8H 06/23 1600 AC 06/27 Sulbactam Sodium IV 0805 Sodium Chloride 100 ML Aspirin 325 MG DAILY 06/25 1145 AC 06/27 PO 1005 Atorvastatin Calcium 40 MG 1700 06/15 1700 AC 06/26 PO 1644 Calcium Carbonate 500 MG DAILY 06/21 1000 AC 06/27 PO 0211 Docusate Sodium 100 MG BID 06/12 2359 AC 06/27 PO 1005 Furosemide 40 MG DAILY 06/13 1000 DC 06/26 PO 0919 Hydromorphone HCl 2 MG Q4P PRN 06/27 1115 AC 06/27 IV 1127 Hydromorphone HCl 1.2 MG Q4-6 PRN PRN 06/24 1100 AC 06/27 IV 0522 Insulin Aspart 0 TIDAC/HS 06/24 1200 AC 06/27 SC 0804 Insulin Detemir 22 UNITS BID 06/26 1000 AC 06/27 SC 1005 Lidocaine 1 PAT DAILY@1700 06/20 1700 AC 06/26 EXT 1644 Melatonin 5 MG AT BEDTIME 06/21 2200 AC 06/26 PO 2212 Nitroglycerin 0.5 GM Q6P PRN 06/15 1830 AC TOP Oxycodone HCl 20 MG .STK-MED ONE 06/26 1345 DC PO 06/26 1346 Oxycodone HCl 40 MG Q12 06/25 2200 AC 06/27 PO 1006 Oxycodone HCl 10 MG Q4P PRN 06/23 1730 AC 06/25 PO 0944 Oxycodone HCl 20 MG Q4P PRN 06/23 1730 AC 06/27 PO 0257 Pregabalin 75 MG BID 06/13 2200 AC 06/27 PO 1005 Ramelteon 8 MG ONCE ONE 06/27 0115 CAN PO 06/27 0116 Senna/Docusate Sodium 1 TAB BID 06/27 1145 UNVr PO Sodium Chloride 2 SPRAY Q4P PRN 06/27 0015 AC 06/27 TREY 0209 Sodium Chloride 1,000 ML Q13H 06/26 1900 AC 06/26 IV 2114 Tiotropium [place] 1 PUF DAILY 06/14 1000 AC 06/27 INH 1006 Impression/Plan Impression/Problem List Impression: 61-year-old woman, current smoker with a history of COPD, diabetes type 2 with diabetic neuropathy, left leg DVT status post IVC filter 11 years prior to admission, chronic kidney disease, neuropathy and peripheral vascular disease, status post left BKA and amputations of the right first and third toes, last admitted to [facility] in September 2016 for cellulitis, current admission for empyema s/p status post right thoracotomy with drainage of an empyema and decortication of the right lower lobe 06/23/2017. Found to have occlusive thrombus within the left superficial femoral vein on this admission afebrile overnight, WBC trending down 14.4, H/h 7.3/21.8 chest tube drainge 160ml +2775 fluid balance over 8 hrs problem list: empyema status post right thoracotomy COPD DMT2 DVT CKD Left BKA AMEYA on CKD Plan: thoracic surgery, ID and ENDO on board, apprec recs continue iv unasyn H/h is trending down. will repeat later this evening, transfuse to keep Hg >7 Pulmonary toilet and incentive spirometry No AC, per surgery, on ASA 325mg pain control with oxycodone and morphine accuchecks, ISS, diabetic diet,on levemir will hold Lasix given worsening creatinine (pre renal VS AIN), on NS at 75cc Continue PT dvt ppx ALP full code Problem List: 1. Amputated above knee 2. CHRONIC RENAL FAILURE 3. AMEYA (acute kidney injury) 4. Empyema Pain Ratin Tomorrow's Labs & Rationales: cbc/bep Plan DVT/Prophylaxis: pharmacological Code Status: Full Code Fidencio Hardwick MD 06/27/17 1209: Attending MD Review Statement Attending Sign Off Attending Cosign Statement: I have: examined this patient, reviewed [facility] EMR data, discussd w/resident/PA/ TOPPER PRESS OPERATOR, discussed mgmt plan w/pt, agreed w/resident/PA/TOPPER PRESS OPERATOR, amended to note. Other Findings: Problems to be addressed today: -Right-sided pneumonia empyema S/P right thoracostomy tube with continued drainage -Continue ampicillin/sulbactam -Follow WBC and temperature curve -Thoracostomy tube management per CT surgery -Decreasing H&H -Continue to follow -Transfuse if continuing to trend downwards -Acute on chronic renal failure -Continue IV fluids -Follow electrolytes and renal function -Diabetes -Continue sliding-scale insulin as per Thien Palma MD -PVD -Continue aspirin -Further anticoagulation is contraindicated at this time as to patient's thoracic bleeding -Right pleuritic pain/chronic pain -Continue oral analgesics as present
--- NOTE | 2017-06-27 09:57 | PN- Diabetes ---
Assessment/Plan Assessment: This 61-year-old woman with a known history of type 2 diabetes mellitus associated with morbid obesity and with severe complications including a left below the knee amputation diabetic neuropathy and chronic kidney diseases stage 4 presented to the emergency room with respiratory failure. The patient underwent right thoracotomy with drainage of an empyema. A great deal of loculation of fibrosis was found apparently according to the operative note. The patient is on Levemir 22 units twice a day. She is awake and alert this morning. The patient is eating a little better. Her blood sugar this morning fingerstick before breakfast was 233. It was 190 in the lab at 4 AM. Fingerstick blood sugars yesterday were 89 before breakfast, 189 before lunch, 211 before dinner, and 233 at bedtime. Plan: Suggest continue the present insulin regimen. The patient is eating better. After observing her sugars today we may need to make further adjustments in her insulin regimen. Subjective Subjective: Feels improved Review of Systems Constitutional: Denies: chills, fever. Cardiovascular: Denies: chest pain. Respiratory: Reports: short of breath. Gastrointestinal: Denies: nausea, vomiting. Objective Last 24 Hrs of Vital Signs/I&O Vital Signs Date Time Temp Pulse Resp B/P B/P Pulse O2 O2 Flow FiO2 Mean Ox Delivery Rate 06/27 0800 98.0 66 20 130/46 95 Room Air 06/27 0000 97.9 66 20 130/60 95 Nasal 2.0L Cannula 06/27 0000 95 Nasal 2.0L Cannula 06/26 1816 94 Nasal 2.0L Cannula 06/26 1600 93 Nasal 2.0L Cannula 06/26 1600 97.3 84 18 140/60 93 Nasal 2.0L Cannula 06/26 1200 97.4 65 20 158/60 92 Nasal 2.0L Cannula Intake & Output 06/27 1600 06/27 0800 06/27 0000 Intake Total 1015 1980 Output Total 20 200 Balance 995 1780 Intake, IV 715 280 Intake, Oral 300 1700 Output, Chest 20 Tube Drainage Output, Urine 200 Physical Exam General Appearance: alert, awake, obese Head: normal appearance Neck: normal inspection Respiratory: normal breath sounds Cardiovascular: regular rate/rhythm Abdomen: normal bowel sounds Current Medications: Current Medications Sig/Suleman Start time Last Medication Dose Route Stop Time Status Admin Acetaminophen 1,000 MG Q6P PRN 06/19 1130 AC 06/25 N/A 1 UNIT IV 1527 Albuterol Sulfate 3 ML EVERY 4 HRS/AWAKE 06/26 1234 AC 06/26 INH 2151 Albuterol Sulfate 3 ML Q4 06/23 1800 DC 06/26 INH 0829 Ampicillin Sodium/ 3,000 MG Q8H 06/23 1600 AC 06/27 Sulbactam Sodium IV 0805 Sodium Chloride 100 ML Aspirin 325 MG DAILY 06/25 1145 AC 06/26 PO 0919 Atorvastatin Calcium 40 MG 1700 06/15 1700 AC 06/26 PO 1644 Calcium Carbonate 500 MG DAILY 06/21 1000 AC 06/27 PO 0211 Docusate Sodium 100 MG BID 06/12 2359 AC 06/26 PO 2211 Furosemide 40 MG DAILY 06/13 1000 DC 06/26 PO 0919 Hydromorphone HCl 1.2 MG Q4-6 PRN PRN 06/24 1100 AC 06/27 IV 0522 Insulin Aspart 0 TIDAC/HS 06/24 1200 AC 06/27 SC 0804 Insulin Detemir 22 UNITS BID 06/26 1000 AC 06/26 SC 2211 Lidocaine 1 PAT DAILY@1700 06/20 1700 AC 06/26 EXT 1644 Melatonin 5 MG AT BEDTIME 06/21 2200 AC 06/26 PO 2212 Nitroglycerin 0.5 GM Q6P PRN 06/15 1830 AC TOP Oxycodone HCl 20 MG .STK-MED ONE 06/26 1345 DC PO 06/26 1346 Oxycodone HCl 40 MG Q12 06/25 2200 AC 06/26 PO 2212 Oxycodone HCl 10 MG Q4P PRN 06/23 1730 AC 06/25 PO 0944 Oxycodone HCl 20 MG Q4P PRN 06/23 1730 AC 06/27 PO 0257 Pregabalin 75 MG BID 06/13 2200 AC 06/26 PO 2212 Ramelteon 8 MG ONCE ONE 06/27 0115 CAN PO 06/27 0116 Sodium Chloride 2 SPRAY Q4P PRN 06/27 0015 AC 06/27 TREY 0209 Sodium Chloride 1,000 ML Q13H 06/26 1900 AC 06/26 IV 2114 Tiotropium [place] 1 PUF DAILY 06/14 1000 AC 06/26 INH 0920 Findings Pertinent Lab/Drew Results: Laboratory Tests 06/27 0500 Chemistry Sodium (137 - 145 mmol/L) 138 Potassium (3.5 - 5.1 mmol/L) 4.2 Chloride (98 - 107 mmol/L) 103 Carbon Dioxide (22 - 30 mmol/L) 23 Anion Gap (5 - 16) 12 BUN (7 - 17 mg/dL) 52 H Creatinine (0.5 - 1.0 mg/dL) 3.3 H Estimated GFR (>60 ml/min) 14 L Glucose (65 - 99 mg/dL) 190 H Calcium (8.4 - 10.2 mg/dL) 8.5 Phosphorus (2.5 - 4.5 mg/dL) 5.8 H Magnesium (1.6 - 2.3 mg/dL) 1.8 Total Bilirubin (0.2 - 1.3 mg/dL) 0.3 AST (14 - 36 U/L) 15 ALT (9 - 52 U/L) 25 Albumin (3.5 - 5.0 g/dL) 2.5 L Hematology CBC w Diff MAN DIFF ORDERED WBC (4.8 - 10.8 /CUMM) 14.4 H RBC (4.20 - 5.40 /CUMM) 2.31 L Hgb (12.0 - 16.0 G/DL) 7.3 *L Hct (37 - 47 %) 21.8 L MCV (81.0 - 99.0 FL) 94.6 MCH (27.0 - 31.0 PG) 31.7 H RDW (11.5 - 14.5 %) 17.7 H Plt Count (130 - 400 /CUMM) 405 H MPV (7.4 - 10.4 FL) 7.2 L Gran % (42.2 - 75.2 %) 85.1 H Lymphocytes % (20.5 - 51.1 %) 8.4 L Monocytes % (1.7 - 9.3 %) 3.4 Eosinophils % (0 - 5 %) 2.7 Basophils % (0.0 - 2.0 %) 0.4 Absolute Granulocytes (1.4 - 6.5 /CUMM) 12.2 H Segmented Neutrophils (42.2 - 75.2 %) 79 H Band Neutrophils (0.0 - 5.0 %) 1 Absolute Lymphocytes (1.2 - 3.4 /CUMM) 1.2 Lymphocytes (20.5 - 51.1 %) 8 L Monocytes (1.7 - 9.3 %) 7 Absolute Monocytes (0.10 - 0.60 /CUMM) 0.5 Eosinophils (0 - 5.0 %) 5 Absolute Eosinophils (0.0 - 0.7 /CUMM) 0.4 Absolute Basophils (0.0 - 0.2 /CUMM) 0.1 Platelet Estimate (ADEQUATE) INCREASED Polychromasia 1+ Basophilic Stippling SLIGHT Ovalocytes FEW PUBS MCHC (33.0 - 37.0 G/DL) 33.5 Other Body Source Fld Total RBCs Counted (%) 100
--- NOTE | 2017-06-27 12:07 | Transfer of Care Summary ---
Hospital Course Course Hospital Course: 61-year-old woman, current smoker with a history of COPD, diabetes type 2 with diabetic neuropathy, left leg DVT status post IVC filter, chronic kidney disease , neuropathy and peripheral vascular disease, status post left BKA and amputations of the right first and third toes, last admitted to [facility] in September 2016 for cellulitis treated with cefazolin and discharged on Keflex, admitted to [place] 06/12/17 for evaluation of chest pain of 4 days' duration associated with shortness of breath. Found to have empyema with complicated effusion with hemorragic fluid underwent right thoracotomy with drainage of empyema and decortication of right lower lobe. . Was brought to the ICU for close monitoring status post surgery on. Her small rise in cardiac enzymes was thought related to a PE. Events that occurred during her ICU stay: Empyema/hydropneumothorax. 06/13/17: 1400 mL of serosanguineous fluid was drained from the thoracic cavity with placement of 2 chest tubes. She remained hemodynamically stable. Tubes kept in place until there was less than 100 mL of drainage per day. Kept on on Unasyn for Haemophilus influenzae, which was isolated from her initial blood cultures. Acute blood loss anemia: Her H&H dropped to 6.1 and she was transfused a 9 total of units of PRBC. Further CT chest/abd/pelvis without contrast showed no definite evidence for an intrathoracic, abdominal or pelvic hematoma. GI was consulted and she underwent OGD which showed superficial nonbleeding esophageal erosion. On 06/30/17 she was noted to have a large melanotic bowel movement. Complications: Drop in H&H Significant Procedures: Upper endoscopy Impression: 1. Superficial nonbleeding esophageal erosion at 35 cm, left intact. 2. 1+ nonerosive distal GERD with minimally irregular Z line at 40 cm, left intact. 3. Scant sliding hiatal hernia pouch, without any Freddie erosions. 4. Mildly inflamed gastric cardia, just below Z line on retroflexion, left intact. 5. Minimal prepyloric antral erythema, left intact. Assessment/Plan: 61-year-old woman, current smoker with a history of COPD, diabetes type 2 with diabetic neuropathy, left leg DVT status post IVC filter, chronic kidney disease , neuropathy and peripheral vascular disease, status post left BKA. Assessement and Plan: Empyema/hydropneumothorax. Tubes kept in place until there was less than 100 mL of drainage per day and managed by surgery. 2nd tube was removed 07/01/17. Will need to follow up as outpatient with Dr Rebolledo. Kept on on Unasyn for Haemophilus influenzae, which was isolated from her initial blood cultures. Acute blood loss anemia: Her H&H dropped to 6.1. S/P 9 total of units of PRBC. Further CT chest/abd/ pelvis without contrast showed o definite evidence for an intrathoracic, abdominal or pelvic hematoma. GI was consulted and she underwent OGD which did not show any significant bleeding. As she had melanotic stools on 06/30/17 and 04/08. Will be NPO at midnight for colonoscopy on 07/02/17. COPD Mantained on supplemental oxygen DMT2 Endocrine on board continue levemir and ISS DVT/PE/Positive troponins Troponins trended down and rise was thought related to a PE. V/Q scan was consistent with this diagnosis. Due to her surgery and later her acute blood loss anemia; no anticoagulation was resumed for her. Continue NTG. Her statin was held secondary to rise in her hepatic transaminases. In view of her multiple risk factors for coronary artery disease and myocardial ischemia Cardiology recomending risk stratification with a stress test at some point in the future. Of note she does have a IVC filter. AMEYA on CKD Nephrology on board. After a mild worsening of her creatinine, her renal function is returned close to her baseline. Avoid nephrotoxins. DVT ppx: ALPS diabetic diet full code.
--- NOTE | 2017-06-27 12:47 | PN- Pulmonary ---
Subjective HPI/Critical Care Issues: pt in icu as a tele hold 160 cc/24 hrs from chest tube pain around site hgb 7.3 hemodynamically stable without dizziness Objective Current Medications: Current Medications Sig/Suleman Start time Last Medication Dose Route Stop Time Status Admin Acetaminophen 1,000 MG Q6P PRN 06/19 1130 AC 06/25 N/A 1 UNIT IV 1527 Albuterol Sulfate 3 ML EVERY 4 HRS/AWAKE 06/26 1234 AC 06/27 INH 1002 Ampicillin Sodium/ 3,000 MG Q8H 06/23 1600 AC 06/27 Sulbactam Sodium IV 0805 Sodium Chloride 100 ML Aspirin 325 MG DAILY 06/25 1145 AC 06/27 PO 1005 Atorvastatin Calcium 40 MG 1700 06/15 1700 AC 06/26 PO 1644 Calcium Carbonate 500 MG DAILY 06/21 1000 AC 06/27 PO 0211 Docusate Sodium 100 MG BID 06/12 2359 AC 06/27 PO 1005 Furosemide 40 MG DAILY 06/13 1000 DC 06/26 PO 0919 Hydromorphone HCl 2 MG Q4P PRN 06/27 1115 AC 06/27 IV 1127 Hydromorphone HCl 1.2 MG Q4-6 PRN PRN 06/24 1100 AC 06/27 IV 0522 Insulin Aspart 0 TIDAC/HS 06/24 1200 AC 06/27 SC 1238 Insulin Detemir 22 UNITS BID 06/26 1000 AC 06/27 SC 1005 Lidocaine 1 PAT DAILY@1700 06/20 1700 AC 06/26 EXT 1644 Melatonin 5 MG AT BEDTIME 06/21 2200 AC 06/26 PO 2212 Nitroglycerin 0.5 GM Q6P PRN 06/15 1830 AC TOP Oxycodone HCl 20 MG .STK-MED ONE 06/26 1345 DC PO 06/26 1346 Oxycodone HCl 40 MG Q12 06/25 2200 AC 06/27 PO 1006 Oxycodone HCl 10 MG Q4P PRN 06/23 1730 AC 06/25 PO 0944 Oxycodone HCl 20 MG Q4P PRN 06/23 1730 AC 06/27 PO 0257 Pregabalin 75 MG BID 06/13 2200 AC 06/27 PO 1005 Ramelteon 8 MG ONCE ONE 06/27 0115 CAN PO 06/27 0116 Senna/Docusate Sodium 1 TAB BID 06/27 1145 AC PO Sodium Chloride 2 SPRAY Q4P PRN 06/27 0015 AC 06/27 TREY 0209 Sodium Chloride 1,000 ML Q13H 06/26 1900 AC 06/26 IV 2114 Tiotropium [place] 1 PUF DAILY 06/14 1000 AC 06/27 INH 1006 Vital Signs & I&O Last 24 Hrs of Vitals and I&O: Vital Signs Date Time Temp Pulse Resp B/P B/P Pulse O2 O2 Flow FiO2 Mean Ox Delivery Rate 06/27 1003 97 Nasal 2.0L Cannula 06/27 0800 98.0 66 20 130/46 95 Room Air 06/27 0000 97.9 66 20 130/60 95 Nasal 2.0L Cannula 06/27 0000 95 Nasal 2.0L Cannula 06/26 1816 94 Nasal 2.0L Cannula 06/26 1600 93 Nasal 2.0L Cannula 06/26 1600 97.3 84 18 140/60 93 Nasal 2.0L Cannula Intake & Output 06/27 1600 06/27 0800 06/27 0000 Intake Total 1015 1980 Output Total 20 200 Balance 995 1780 Intake, IV 715 280 Intake, Oral 300 1700 Output, Chest 20 Tube Drainage Output, Urine 200 Exam Other Physical Findings: gen awake alert heent ncat cvs s1, s2 lungs rare rhonchi abd soft, obese ext without edema Results Last 24 Hrs of Lab Results: Laboratory Tests 06/27/17 0500: Anion Gap 12, Estimated GFR 14 L, Glucose 190 H, Calcium 8.5, Phosphorus 5.8 H, Magnesium 1.8, Total Bilirubin 0.3, AST 15, ALT 25, Albumin 2.5 L, CBC w Diff MAN DIFF ORDERED, RBC 2.31 L, MCV 94.6, MCH 31.7 H, RDW 17.7 H, MPV 7.2 L, Gran % 85.1 H, Lymphocytes % 8.4 L, Monocytes % 3.4, Eosinophils % 2.7, Basophils % 0.4, Absolute Granulocytes 12.2 H, Segmented Neutrophils 79 H, Band Neutrophils 1, Absolute Lymphocytes 1.2, Lymphocytes 8 L, Monocytes 7, Absolute Monocytes 0.5, Eosinophils 5, Absolute Eosinophils 0.4, Absolute Basophils 0.1, Platelet Estimate INCREASED, Polychromasia 1+, Basophilic Stippling SLIGHT, Ovalocytes FEW, PUBS MCHC 33.5, Fld Total RBCs Counted 100 Impression/Plan Impression/Plan Impression/Plan: Impression 61 year old woman CAP/Sepsis empyema Plan -keep chest tube until drainage less than 100cc/day -pain control -bowel regimen -check cbc tonight, goal hgb >7 unless symptomatic -f/u ct surgery once goal of less than 100cc/day is reached -out of bed DVT prophylaxis at all times
--- NOTE | 2017-06-27 14:54 | RADIOLOGY REPORT ---
EXAMINATION: XR PORTABLE CHEST CLINICAL INFORMATION: Chest pain. Chest tubes. COMPARISON: 06/26/2017 and earlier TECHNIQUE: Portable frontal view of the chest was obtained. FINDINGS: There is a small to moderate right pleural effusion, improved from prior film. There is likely loculated as it extends along the right lateral chest. Right base thoracostomy tube remains in place. No pneumothorax seen. No pleural effusion or pneumothorax. Unchanged prominence of the cardiac silhouette. No pulmonary edema. Regional skeleton intact. IMPRESSION: Small to moderate right pleural effusion is improved from prior film. There continues to be a likely loculated component along the right lateral aspect of the chest. No pneumothorax seen. Right base chest tube remains in similar position.
--- NOTE | 2017-06-27 15:01 | PN- Cardiology ---
Subjective Subjective: * Patient is now status post chest tube placement with drainage of serosanguineous fluid following empyema drainage with lung decortication. One chest tube removed. On Unasyn for Haemophilus influenza. * Less shortness of breath but right sided chest discomfort persists. * creatinine increased to 3.3 * Decreasing WBC count. H/H continues to fall. Objective Vital Signs and I&Os Vital Signs Date Time Temp Pulse Resp B/P B/P Pulse O2 O2 Flow FiO2 Mean Ox Delivery Rate 06/27 1003 97 Nasal 2.0L Cannula 06/27 799 98.0 66 20 130/46 95 Room Air 06/27 0000 97.9 66 20 130/60 95 Nasal 2.0L Cannula 06/27 0000 95 Nasal 2.0L Cannula 06/26 1816 94 Nasal 2.0L Cannula 06/26 1599 93 Nasal 2.0L Cannula 06/26 1600 97.3 84 18 140/60 93 Nasal 2.0L Cannula Intake & Output 06/27 1600 06/27 0806/27 0000 06/26 0000 Intake Total 1015 1980 1830 360 200 Output Total 20 200 440 100 Balance 995 1780 1390 260 200 Intake, IV 715 280 130 120 200 Intake, Oral 300 1700 1700 240 Output, Chest 20 40 100 Tube Drainage Output, Urine 200 400 Patient 238 lb Weight Weight Bed scale Measurement Method Physical Exam: General: WD/obese female in NAD; alert and oriented x 3 Heart: RRR w/o murmur Lungs: no crackles or wheezing, chest tube on right Extremities: no edema on right, Left AKA Assessment/Plan Assessment/Plan * This obese and inactive female has evidence of lower extremity thrombosis without findings of a true DVT. I suspect that her small rise in cardiac enzymes is related to a PE. A V/Q scan is consistent with this diagnosis. Her low O2 saturation, shortness of breath and pleuritic pain are consistent with this diagnosis although her diagnosis of empyema will also give similar symptoms. She does have an IVC filter which helps but is not 100% reliable for preventing a PE and it does not help with lower extremity thrombosis. Anticoagulation being held at present due to recent surgery and low H/H. Follow CBC. * In consideration of the patient's multiple risk factors for coronary artery disease myocardial ischemia related to increased myocardial demand cannot be 100 % excluded and the patient should have risk stratification with a stress test at some point in time. In the meantime, continue IV heparin and aspirin. Continue a statin. If precordial chest pain then begin NTG paste 1/2 inch Q 6 hours. Continue telemetry? Yes
[2017-06-27 16:00] VITALS: BP 140/76
[2017-06-27 20:52] LABS: ABSOLUTE BASOPHIL COUNT 0.1 /CUMM (0.0-0.2); ABSOLUTE EOSINOPHIL COUNT 0.4 /CUMM (0.0-0.7); ABSOLUTE GRANULOCYTE CT 9.6 /CUMM (1.4-6.5); ABSOLUTE LYMPH COUNT 1.1 /CUMM (1.2-3.4); ABSOLUTE MONOCYTE COUNT 0.6 /CUMM (0.10-0.60); BASOPHIL % 0.5 % (0.0-2.0); EOSINOPHIL % 3.2 % (0-5); GRANULOCYTE % 82.3 % (42.2-75.2); MEAN CORPUSCULAR HGB 31.7 PG (27.0-31.0); MEAN CORPUSCULAR HGB CONC 33.8 G/DL (33.0-37.0); MEAN CORPUSCULAR VOLUME 93.7 FL (81.0-99.0); MEAN PLATELET VOLUME 6.9 FL (7.4-10.4); PLATELET COUNT 357 /CUMM (130-400); RBC DISTRIBUTION WIDTH 17.4 % (11.5-14.5); RED BLOOD CELL CT 1.93 /CUMM (4.20-5.40); WHITE BLOOD CELL COUNT 11.7 /CUMM (4.8-10.8)
[2017-06-28 01:00] VITALS: BP 160/60
[2017-06-28 05:08] LABS: ABSOLUTE BASOPHIL COUNT 0.1 /CUMM (0.0-0.2); ABSOLUTE EOSINOPHIL COUNT 0.4 /CUMM (0.0-0.7); ABSOLUTE GRANULOCYTE CT 9.9 /CUMM (1.4-6.5); ABSOLUTE MONOCYTE COUNT 0.5 /CUMM (0.10-0.60); BASOPHIL % 0.4 % (0.0-2.0); EOSINOPHIL % 3.6 % (0-5); MEAN CORPUSCULAR HGB 31.3 PG (27.0-31.0); MEAN CORPUSCULAR HGB CONC 33.6 G/DL (33.0-37.0); MEAN CORPUSCULAR VOLUME 93.1 FL (81.0-99.0); MEAN PLATELET VOLUME 7.1 FL (7.4-10.4); PLATELET COUNT 369 /CUMM (130-400); RBC DISTRIBUTION WIDTH 16.9 % (11.5-14.5); RED BLOOD CELL CT 1.99 /CUMM (4.20-5.40); WHITE BLOOD CELL COUNT 11.9 /CUMM (4.8-10.8)
[2017-06-28 05:29] LABS: HEMATOCRIT 18.5 % (37-47)
--- NOTE | 2017-06-28 06:03 | PN- Thoracic Surgery ---
Subjective Subjective: Chest tube was left in place yesterday due to peristent output of 140 cc per day. Pt is feeling discouraged this morning overall. She admits to soreness at the chest tube site, as expected. Received 1u prbc's last night for h/h 6.1/18.0 with minimal response, so a second unit is being transfused at this time. Pt continues off IV heparin due to this bleeding. Objective Vital Signs and I&Os Vital Signs Date Time Temp Pulse Resp B/P B/P Pulse O2 O2 Flow FiO2 Mean Ox Delivery Rate 06/28 0100 97.5 68 24 160/60 93 Nasal 2.0L Cannula 06/28 0000 93 Nasal 2.0L Cannula 06/27 1600 98.0 70 22 140/76 95 Room Air 06/27 1003 97 Nasal 2.0L Cannula 06/27 0800 98.0 66 20 130/46 95 Room Air Intake & Output 06/28 0800 06/28 0000 06/27 1600 06/27 0800 06/27 0000 06/26 1600 Intake Total 660 1200 1015 1980 1830 Output Total 540 20 200 440 Balance 660 083 747 8634 1390 Intake, IV 450 600 715 280 130 Intake, Oral 210 425 632 1635 1700 Number 0 Bowel Movements Output, Chest 40 20 40 Tube Drainage Output, Urine 500 200 400 Patient 232 lb 238 lb Weight Weight Bed scale Bed scale Measurement Method Physical Exam: Gen: Pt is awake and alert. NAD, but somewhat anxious. Chest: CT x [address] with serosanginous output. Pleurevac was replaced by RN last night due to tipping over. Total of 15 cc output for the last 8 hours. Reinfored dressing remains in place. BS are decreased throughout on the R , distant bilaterally due to body habitus. Assessment/Plan Assessment/Plan Pt is a 61 yo F who is now POD #5 s/p decortication, ct placement for empyema. -One CT remains. Dr. Singh would like to keep in place until output is <100 cc/ day. F/u am cxr. -Transfuse to keep hgb >7. Continue to hold IV heparin. Serial h/h. -Continue iv antibiotics. -Pain control. -Medical management per primary team. -Will d/w attendin. Core Measures Venous Thromboembolism VTE Risk Factors Acute Medical Illness No Mechanical VTE Prophylaxis d/t Physical Contraindication No VTE Pharm Prophylaxis d/t NA PharmProphylax ordered
[2017-06-28 08:00] VITALS: BP 136/66
--- NOTE | 2017-06-28 08:22 | PN- Resident CRCU ---
Manolo Greenwood 06/28/17 0822: Subjective HPI/CRCU Issues: POD 3 s/p R thoracotomy/decortication for empyema 24 Hour Events: Seen and examined patient. Overnight patient's H&H dropped and she was transfused 2 units of PRBC. Denies shortness of breath, chest pain, abdominal pain. Objective Vital Signs & I&O Last 8 Hrs of Vitals and I&O: Intake & Output 06/28 1600 06/28 0800 06/28 0000 Intake Total 578 660 Output Total 920 Balance -342 660 Intake, Blood 189 Product Intake, IV 389 450 Intake, Oral 210 Output, Chest 20 Tube Drainage Output, Urine 900 Patient 215 lb 232 lb Weight Weight Bed scale Measurement Method Laboratory Tests 06/28 Chemistry Sodium (137 - 145 mmol/L) 139 Potassium (3.5 - 5.1 mmol/L) 4.4 Chloride (98 - 107 mmol/L) 108 H Carbon Dioxide (22 - 30 mmol/L) 21 L Anion Gap (5 - 16) 10 BUN (7 - 17 mg/dL) 60 H Creatinine (0.5 - 1.0 mg/dL) 3.3 H Estimated GFR (>60 ml/min) 14 L BUN/Creatinine Ratio (7 - 25 %) 18.2 Phosphorus (2.5 - 4.5 mg/dL) 5.2 H Magnesium (1.6 - 2.3 mg/dL) 1.7 Hematology CBC w Diff NO MAN DIFF REQ NO MAN DIFF REQ WBC (4.8 - 10.8 /CUMM) 11.9 H 11.7 H RBC (4.20 - 5.40 /CUMM) 1.99 L 1.93 L Hgb (12.0 - 16.0 G/DL) 6.2 *L 6.1 *L Hct (37 - 47 %) 18.5 *L 18.0 *L MCV (81.0 - 99.0 FL) 93.1 93.7 MCH (27.0 - 31.0 PG) 31.3 H 31.7 H RDW (11.5 - 14.5 %) 16.9 H 17.4 H Plt Count (130 - 400 /CUMM) 369 357 MPV (7.4 - 10.4 FL) 7.1 L 6.9 L Gran % (42.2 - 75.2 %) 83.0 H 82.3 H Lymphocytes % (20.5 - 51.1 %) 8.5 L 9.2 L Monocytes % (1.7 - 9.3 %) 4.5 4.8 Eosinophils % (0 - 5 %) 3.6 3.2 Basophils % (0.0 - 2.0 %) 0.4 0.5 Absolute Granulocytes (1.4 - 6.5 /CUMM) 9.9 H 9.6 H Absolute Lymphocytes (1.2 - 3.4 /CUMM) 1.0 L 1.1 L Absolute Monocytes (0.10 - 0.60 /CUMM) 0.5 0.6 Absolute Eosinophils (0.0 - 0.7 /CUMM) 0.4 0.4 Absolute Basophils (0.0 - 0.2 /CUMM) 0.1 0.1 PUBS MCHC (33.0 - 37.0 G/DL) 33.6 33.8 Exam General Appearance: no apparent distress, alert, awake, anxious Respiratory: quiet respiration Cardiovascular: regular rate/rhythm Current Medications: Current Medications Sig/Suleman Start time Last Medication Dose Route Stop Time Status Admin Acetaminophen 1,000 MG Q6P PRN 06/19 1130 AC 06/25 N/A 1 UNIT IV 1527 Albuterol Sulfate 3 ML EVERY 4 HRS/AWAKE 06/26 1234 AC 06/28 INH 0919 Ampicillin Sodium/ 3,000 MG Q8H 06/23 1600 AC 06/28 Sulbactam Sodium IV 1032 Sodium Chloride 100 ML Aspirin 325 MG DAILY 06/25 1145 AC 06/28 PO 0853 Atorvastatin Calcium 40 MG 1700 06/15 1700 AC 06/27 PO 1644 Calcium Carbonate 500 MG DAILY 06/21 1000 AC 06/28 PO 0853 Docusate Sodium 100 MG BID 06/12 2359 AC 06/28 PO 0853 Hydromorphone HCl 2 MG Q4P PRN 06/27 1115 AC 06/28 IV 1015 Hydromorphone HCl 1.2 MG Q4-6 PRN PRN 06/24 1100 AC 06/27 IV 0522 Insulin Aspart 0 TIDAC/HS 06/24 1200 AC 06/28 SC 0834 Insulin Detemir 22 UNITS BID 06/26 1000 AC 06/28 SC 0854 Lidocaine 1 PAT DAILY@1700 06/20 1700 AC 06/27 EXT 1644 Melatonin 5 MG AT BEDTIME 06/21 2200 AC 06/27 PO 2207 Nitroglycerin 0.5 GM Q6P PRN 06/15 1830 AC TOP Oxycodone HCl 40 MG Q12 06/25 2200 AC 06/28 PO 0854 Oxycodone HCl 10 MG Q4P PRN 06/23 1730 AC 06/25 PO 0944 Oxycodone HCl 20 MG Q4P PRN 06/23 1730 AC 06/27 PO 0257 Pregabalin 75 MG BID 06/13 2200 AC 06/28 PO 0854 Senna/Docusate Sodium 1 TAB BID 06/27 1145 AC 06/28 PO 0853 Sodium Chloride 2 SPRAY Q4P PRN 06/27 0015 AC 06/27 TREY 0209 Sodium Chloride 1,000 ML Q13H 06/26 1900 DC 06/27 IV 1525 Tiotropium [place] 1 PUF DAILY 06/14 1000 AC 06/28 INH 0853 CXR Findings: FINDINGS: There is a small to moderate right pleural effusion, improved from prior film. There is likely loculated as it extends along the right lateral chest. Right base thoracostomy tube remains in place. No pneumothorax seen. No pleural effusion or pneumothorax. Unchanged prominence of the cardiac silhouette. No pulmonary edema. Regional skeleton intact. IMPRESSION: Small to moderate right pleural effusion is improved from prior film. There continues to be a likely loculated component along the right lateral aspect of the chest. No pneumothorax seen. Right base chest tube remains in similar position. 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 Found to have occlusive thrombus within the left superficial femoral vein on this admission afebrile overnight, WBC 11.9, H/h 6.2/18.5 chest tube drainge 80ml + 1973,fluid balance over 8 hrs problem list: empyema status post right thoracotomy COPD DMT2 DVT CKD Left BKA AMEYA on CKD Plan: continue iv unasyn s/p 2 units PRBC, transfuse to keep Hg >7, repeat cbc 6.5/19.3, continues to refuse further imaging , verbalized understanding that we might not be able to figure the source of the bleeding without imaging in order to assess need for any interventions. Pulmonary toilet and incentive spirometry No AC, per surgery, will hold ASA 325mg pain control with oxycodone and morphine accuchecks, ISS, diabetic diet,on levemir thoracic surgery, ID and ENDO on board, apprec recs hold Lasix given worsening creatinine (pre renal ( less likely as hydration did not improve creatinine VS AIN) Continue PT dvt ppx ALP full code Problem List: 1. Empyema 2. CHRONIC RENAL FAILURE 3. AMEYA (acute kidney injury) Pain Ratin Tomorrow's Labs & Rationales: cbc/bep/ Plan DVT/Prophylaxis: pharmacological Code Status: Full Code Ronen RODAS,Fidencio 06/28/17 1226: Attending MD Review Statement Attending Sign Off Attending Cosign Statement: I have: examined this patient, reviewed [email or web address] EMR data, personally reviewd images, discussd w/resident/PA/STRING WINDING MACHINE OPERATOR, discussed mgmt plan w/angel, agreed w/resident/ PA/STRING WINDING MACHINE OPERATOR, amended to note. Other Findings: Ms. Vo was interviewed and examined. Her EMR was reviewed. She at present states she is asymptomatic. She specifically denies fever, chills, SOB, chest pain, palpitations, and lightheadedness. New issues today are a decrease in her H&H requiring transfusion of PRBCs. -Progressive anemia of unknown etiology -Patient with known intrathoracic bleeding - S/P right thoracostomy tube secondary to pneumonia/empyema -Continue serial H&H determinations transfuse accordingly -Refusal of chest CT discussed with patient advised it is pertinent to application of correct treatment -T2 DM -Before meals sugars have been elevated and I agree with the adjustment in her basal insulin - we will continue sliding-scale coverage -Pneumonia/empyema -We will continue ampicillin/sulbactam and follow cultures -Chronic pain -Continue current analgesic regimen -COPD -Continue TRC, nebs, and metered-dose inhalers
--- NOTE | 2017-06-28 08:55 | PN- Infect Dx ---
Subjective Subjective: Afebrile. She feels overall improved though still notes some discomfort in the right chest. She also notes some urinary symptoms though she is somewhat vague regarding these. Objective Last 24 Hrs of Vital Signs/I&O Vital Signs Date Time Temp Pulse Resp B/P B/P Pulse O2 O2 Flow FiO2 Mean Ox Delivery Rate 06/28 0100 97.5 68 24 160/60 93 Nasal 2.0L Cannula 06/28 0000 93 Nasal 2.0L Cannula 06/27 1600 98.0 70 22 140/76 95 Room Air 06/27 1003 97 Nasal 2.0L Cannula Intake & Output 06/28 1600 06/28 0800 06/28 0000 Intake Total 578 660 Output Total 920 Balance -342 660 Intake, Blood 189 Product Intake, IV 389 450 Intake, Oral 210 Output, Chest 20 Tube Drainage Output, Urine 900 Patient 215 lb 232 lb Weight Weight Bed scale Measurement Method Physical Exam Other Physical Findings: She appears comfortable in no acute distress Lungs crackles at the right base; chest tube in place on the right with 60 mL output yesterday and 20 mL overnight Heart regular rhythm with no murmur Abdomen is obese, soft, nontender with positive bowel sounds Extremities venous stasis changes of the right leg Results Last 24 Hours of Lab Results: Laboratory Tests 06/28 Chemistry Sodium (137 - 145 mmol/L) 139 Potassium (3.5 - 5.1 mmol/L) 4.4 Chloride (98 - 107 mmol/L) 108 H Carbon Dioxide (22 - 30 mmol/L) 21 L Anion Gap (5 - 16) 10 BUN (7 - 17 mg/dL) 60 H Creatinine (0.5 - 1.0 mg/dL) 3.3 H Estimated GFR (>60 ml/min) 14 L BUN/Creatinine Ratio (7 - 25 %) 18.2 Phosphorus (2.5 - 4.5 mg/dL) 5.2 H Magnesium (1.6 - 2.3 mg/dL) 1.7 Hematology CBC w Diff NO MAN DIFF REQ NO MAN DIFF REQ WBC (4.8 - 10.8 /CUMM) 11.9 H 11.7 H RBC (4.20 - 5.40 /CUMM) 1.99 L 1.93 L Hgb (12.0 - 16.0 G/DL) 6.2 *L 6.1 *L Hct (37 - 47 %) 18.5 *L 18.0 *L MCV (81.0 - 99.0 FL) 93.1 93.7 MCH (27.0 - 31.0 PG) 31.3 H 31.7 H RDW (11.5 - 14.5 %) 16.9 H 17.4 H Plt Count (130 - 400 /CUMM) 369 357 MPV (7.4 - 10.4 FL) 7.1 L 6.9 L Gran % (42.2 - 75.2 %) 83.0 H 82.3 H Lymphocytes % (20.5 - 51.1 %) 8.5 L 9.2 L Monocytes % (1.7 - 9.3 %) 4.5 4.8 Eosinophils % (0 - 5 %) 3.6 3.2 Basophils % (0.0 - 2.0 %) 0.4 0.5 Absolute Granulocytes (1.4 - 6.5 /CUMM) 9.9 H 9.6 H Absolute Lymphocytes (1.2 - 3.4 /CUMM) 1.0 L 1.1 L Absolute Monocytes (0.10 - 0.60 /CUMM) 0.5 0.6 Absolute Eosinophils (0.0 - 0.7 /CUMM) 0.4 0.4 Absolute Basophils (0.0 - 0.2 /CUMM) 0.1 0.1 PUBS MCHC (33.0 - 37.0 G/DL) 33.6 33.8 Last 24 Hours of Drew Results: No new cultures Recent Imaging Studies: Chest x-ray June 28, personally reviewed, reveals a mild small to moderate right pleural effusion, with a likely loculated component along the right lateral aspect of the chest Assessment/Plan Impression: Overall improvement, with temperatures remaining normal and white blood cell count continuing to decrease now 5 days status post right thoracotomy with drainage of an empyema and decortication of the right lower lobe. She remains on Unasyn for Haemophilus influenzae, which was isolated from her initial blood cultures. Her urinary symptoms are of unclear significance, but a urine culture can be rechecked. Suggestion: 1. Obtain a urinalysis and urine culture 2. Further management of her right chest tube and loculated effusion per Thoracic surgery 3. Continue Unasyn
--- NOTE | 2017-06-28 09:51 | PN- Diabetes ---
Assessment/Plan Assessment: This 61-year-old woman with a known history of type 2 diabetes mellitus associated with morbid obesity and with severe complications including a left below the knee amputation diabetic neuropathy and chronic kidney diseases stage 4 presented to the emergency room with respiratory failure. The patient underwent right thoracotomy with drainage of an empyema. A great deal of loculation of fibrosis was found apparently according to the operative note. The patient is on Levemir 22 units twice a day. She is awake and alert this morning. The patient is eating a little better. Her blood sugar this morning fingerstick before breakfast was 265. Fingerstick blood sugars yesterday were 233 before breakfast, 238 before lunch, 255 before dinner, and 237 at bedtime. Plan: Suggest increase Levemir to 25 units twice a day. Continue present sliding scale NovoLog. Subjective Subjective: Feels okay but cannot lie flat in bed Review of Systems Constitutional: Denies: chills, fever. Cardiovascular: Denies: chest pain. Respiratory: Denies: short of breath. Gastrointestinal: Denies: abdominal pain, nausea, vomiting. Objective Last 24 Hrs of Vital Signs/I&O Vital Signs Date Time Temp Pulse Resp B/P B/P Pulse O2 O2 Flow FiO2 Mean Ox Delivery Rate 06/28 922 97 Nasal 2.5L Cannula 06/28 99 97.5 68 24 160/60 93 Nasal 2.0L Cannula 06/28 93 Nasal 2.0L Cannula 06/27 1599 98.0 70 22 140/76 95 Room Air 06/27 1003 97 Nasal 2.0L Cannula Intake & Output 06/28 0000 Intake Total 578 660 Output Total 920 Balance -342 660 Intake, Blood 189 Product Intake, IV 389 450 Intake, Oral 210 Output, Chest 20 Tube Drainage Output, Urine 900 Patient 215 lb 232 lb Weight Weight Bed scale Measurement Method Vital Signs Date Time Temp Pulse Resp B/P B/P Pulse O2 O2 Flow FiO2 Mean Ox Delivery Rate 06/28 922 97 Nasal 2.5L Cannula 06/28 99 97.5 68 24 160/60 93 Nasal 2.0L Cannula 06/28 0000 93 Nasal 2.0L Cannula 06/27 1600 98.0 70 22 140/76 95 Room Air 06/27 1003 97 Nasal 2.0L Cannula Intake & Output 06/28 1600 06/28 0000 Intake Total 578 660 Output Total 920 Balance -342 660 Intake, Blood 189 Product Intake, IV 389 450 Intake, Oral 210 Output, Chest 20 Tube Drainage Output, Urine 900 Patient 215 lb 232 lb Weight Weight Bed scale Measurement Method Physical Exam General Appearance: alert, awake, comfortable Head: normal appearance Neck: normal inspection Respiratory: decreased breath sounds (right base) Cardiovascular: regular rate/rhythm Current Medications: Current Medications Sig/Suleman Start time Last Medication Dose Route Stop Time Status Admin Acetaminophen 1,000 MG Q6P PRN 06/19 1130 AC 06/25 N/A 1 UNIT IV 1527 Albuterol Sulfate 3 ML EVERY 4 HRS/AWAKE 06/26 1234 AC 06/28 INH 0919 Ampicillin Sodium/ 3,000 MG Q8H 06/23 1600 AC 06/28 Sulbactam Sodium IV 0019 Sodium Chloride 100 ML Aspirin 325 MG DAILY 06/25 1145 06/28 PO 0853 Atorvastatin Calcium 40 MG 1700 06/15 1700 AC 06/27 PO 1644 Calcium Carbonate 500 MG DAILY 06/21 1000 AC 06/28 PO 0853 Docusate Sodium 100 MG BID 06/12 2359 AC 06/28 PO 0853 Hydromorphone HCl 2 MG Q4P PRN 06/27 1115 AC 06/27 IV 1646 Hydromorphone HCl 1.2 MG Q4-6 PRN PRN 06/24 1100 AC 06/27 IV 0522 Insulin Aspart 0 TIDAC/HS 06/24 1200 06/28 SC 0834 Insulin Detemir 22 UNITS BID 06/26 1000 06/28 SC 0854 Lidocaine 1 PAT DAILY@1700 06/20 1700 AC 06/27 EXT 1644 Melatonin 5 MG AT BEDTIME 06/21 2200 AC 06/27 PO 2207 Nitroglycerin 0.5 GM Q6P PRN 06/15 1830 AC TOP Oxycodone HCl 40 MG Q12 06/25 2200 AC 06/28 PO 0854 Oxycodone HCl 10 MG Q4P PRN 06/23 1730 AC 06/25 PO 0944 Oxycodone HCl 20 MG Q4P PRN 06/23 1730 AC 06/27 PO 0257 Pregabalin 75 MG BID 06/13 2200 AC 06/28 PO 0854 Senna/Docusate Sodium 1 TAB BID 06/27 1145 06/28 PO 0853 Sodium Chloride 2 SPRAY Q4P PRN 06/27 0015 AC 06/27 TREY 0209 Sodium Chloride 1,000 ML Q13H 06/26 1900 06/27 IV 1525 Tiotropium [place] 1 PUF DAILY 06/14 1000 06/28 INH 0853 Findings Pertinent Lab/Drew Results: Laboratory Tests 06/28 06/27 0400 8 Chemistry Sodium (137 - 145 mmol/L) 139 Potassium (3.5 - 5.1 mmol/L) 4.4 Chloride (98 - 107 mmol/L) 108 H Carbon Dioxide (22 - 30 mmol/L) 21 L Anion Gap (5 - 16) 10 BUN (7 - 17 mg/dL) 60 H Creatinine (0.5 - 1.0 mg/dL) 3.3 H Estimated GFR (>60 ml/min) 14 L BUN/Creatinine Ratio (7 - 25 %) 18.2 Phosphorus (2.5 - 4.5 mg/dL) 5.2 H Magnesium (1.6 - 2.3 mg/dL) 1.7 Hematology CBC w Diff NO MAN DIFF REQ NO MAN DIFF REQ WBC (4.8 - 10.8 /CUMM) 11.9 H 11.7 H RBC (4.20 - 5.40 /CUMM) 1.99 L 1.93 L Hgb (12.0 - 16.0 G/DL) 6.2 *L 6.1 *L Hct (37 - 47 %) 18.5 *L 18.0 *L MCV (81.0 - 99.0 FL) 93.1 93.7 MCH (27.0 - 31.0 PG) 31.3 H 31.7 H RDW (11.5 - 14.5 %) 16.9 H 17.4 H Plt Count (130 - 400 /CUMM) 369 357 MPV (7.4 - 10.4 FL) 7.1 L 6.9 L Gran % (42.2 - 75.2 %) 83.0 H 82.3 H Lymphocytes % (20.5 - 51.1 %) 8.5 L 9.2 L Monocytes % (1.7 - 9.3 %) 4.5 4.8 Eosinophils % (0 - 5 %) 3.6 3.2 Basophils % (0.0 - 2.0 %) 0.4 0.5 Absolute Granulocytes (1.4 - 6.5 /CUMM) 9.9 H 9.6 H Absolute Lymphocytes (1.2 - 3.4 /CUMM) 1.0 L 1.1 L Absolute Monocytes (0.10 - 0.60 /CUMM) 0.5 0.6 Absolute Eosinophils (0.0 - 0.7 /CUMM) 0.4 0.4 Absolute Basophils (0.0 - 0.2 /CUMM) 0.1 0.1 PUBS MCHC (33.0 - 37.0 G/DL) 33.6 33.8
--- NOTE | 2017-06-28 11:24 | PN- Pulmonary ---
Subjective HPI/Critical Care Issues: pt seen and examined she required blood transfusion awaiting a new cbc in pm hemodynamically stable she is reluctant to get testing completed this am Objective Current Medications: Current Medications Sig/Suleman Start time Last Medication Dose Route Stop Time Status Admin Acetaminophen 1,000 MG Q6P PRN 06/19 1130 AC 06/25 N/A 1 UNIT IV 1527 Albuterol Sulfate 3 ML EVERY 4 HRS/AWAKE 06/26 1234 AC 06/28 INH 0919 Ampicillin Sodium/ 3,000 MG Q8H 06/23 1600 AC 06/28 Sulbactam Sodium IV 1032 Sodium Chloride 100 ML Aspirin 325 MG DAILY 06/25 1145 DC 06/28 PO 0853 Atorvastatin Calcium 40 MG 1700 06/15 1700 AC 06/27 PO 1644 Calcium Carbonate 500 MG DAILY 06/21 1000 AC 06/28 PO 0853 Docusate Sodium 100 MG BID 06/12 2359 AC 06/28 PO 0853 Hydromorphone HCl 2 MG Q4P PRN 06/27 1115 AC 06/28 IV 1015 Hydromorphone HCl 1.2 MG Q4-6 PRN PRN 06/24 1100 AC 06/27 IV 0522 Insulin Aspart 0 TIDAC/HS 06/24 1200 AC 06/28 SC 0834 Insulin Detemir 22 UNITS BID 06/26 1000 AC 06/28 SC 0854 Lidocaine 1 PAT DAILY@1700 06/20 1700 AC 06/27 EXT 1644 Melatonin 5 MG AT BEDTIME 06/21 2200 AC 06/27 PO 2207 Nitroglycerin 0.5 GM Q6P PRN 06/15 1830 AC TOP Oxycodone HCl 40 MG Q12 06/25 2200 AC 06/28 PO 0854 Oxycodone HCl 10 MG Q4P PRN 06/23 1730 AC 06/25 PO 0944 Oxycodone HCl 20 MG Q4P PRN 06/23 1730 AC 06/27 PO 0257 Pregabalin 75 MG BID 06/13 2200 AC 06/28 PO 0854 Senna/Docusate Sodium 1 TAB BID 06/27 1145 AC 06/28 PO 0853 Sodium Chloride 2 SPRAY Q4P PRN 06/27 0015 AC 06/27 TREY 0209 Sodium Chloride 1,000 ML Q13H 06/26 1900 DC 06/27 IV 1525 Tiotropium [place] 1 PUF DAILY 06/14 1000 AC 06/28 INH 0853 Vital Signs & I&O Last 24 Hrs of Vitals and I&O: Vital Signs Date Time Temp Pulse Resp B/P B/P Pulse O2 O2 Flow FiO2 Mean Ox Delivery Rate 06/28 922 97 Nasal 2.5L Cannula 06/28 799 98 Nasal 2.0L Cannula 06/28 799 97.0 64 20 136/66 98 Nasal 2.0L Cannula 06/28 0100 97.5 68 24 160/60 93 Nasal 2.0L Cannula 06/28 0000 93 Nasal 2.0L Cannula 06/27 1600 98.0 70 22 140/76 95 Room Air Intake & Output 06/28 1600 06/28 0806/28 0000 Intake Total 578 660 Output Total 920 Balance -342 660 Intake, Blood 189 Product Intake, IV 389 450 Intake, Oral 210 Output, Chest 20 Tube Drainage Output, Urine 900 Patient 215 lb 232 lb Weight Weight Bed scale Measurement Method Exam Other Physical Findings: gen awake alert heent ncat cvs s1, s2 lungs rare rhonchi abd soft, obese ext without edema Results Last 24 Hrs of Lab Results: Laboratory Tests 06/28/17 0400: Anion Gap 10, Estimated GFR 14 L, BUN/Creatinine Ratio 18.2, Phosphorus 5.2 H, Magnesium 1.7, CBC w Diff NO MAN DIFF REQ, RBC 1.99 L, MCV 93.1, MCH 31.3 H, RDW 16.9 H, MPV 7.1 L, Gran % 83.0 H, Lymphocytes % 8.5 L, Monocytes % 4.5, Eosinophils % 3.6, Basophils % 0.4, Absolute Granulocytes 9.9 H, Absolute Lymphocytes 1.0 L, Absolute Monocytes 0.5, Absolute Eosinophils 0.4, Absolute Basophils 0.1, PUBS MCHC 33.6 06/27/172027: CBC w Diff NO MAN DIFF REQ, RBC 1.93 L, MCV 93.7, MCH 31.7 H, RDW 17.4 H, MPV 6.9 L, Gran % 82.3 H, Lymphocytes % 9.2 L, Monocytes % 4.8, Eosinophils % 3.2 , Basophils % 0.5, Absolute Granulocytes 9.6 H, Absolute Lymphocytes 1.1 L, Absolute Monocytes 0.6, Absolute Eosinophils 0.4, Absolute Basophils 0.1, PUBS MCHC 33.8 Impression/Plan Impression/Plan Impression/Plan: Impression 61 year old woman CAP/Sepsis empyema anemia Plan -recommended to pt to get a ct chest without contrast to evaluate a potential source of bleeding, knowing risks she is reluctant to pursue at this time, alternatively we will recommend to the patient that if her hemoglobin after the 2 units this am is 7.5 or greater we will observe and if not then she will require a non-contrast ct of the chest/abd/pelvis to consider an obscure or thoracic source of bleeding -keep chest tube until drainage less than 100cc/day -pain control -bowel regimen -check cbc tonight, goal hgb >7 unless symptomatic -f/u ct surgery once goal of less than 100cc/day is reached -out of bed DVT prophylaxis at all times
--- NOTE | 2017-06-28 11:24 | RADIOLOGY REPORT ---
EXAMINATION: XR PORTABLE CHEST CLINICAL INFORMATION: Empyema. Chest tube. COMPARISON: Multiple prior chest x-rays, most recent of which is dated 06/27/2017. TECHNIQUE: Portable AP erect view of the chest was obtained. FINDINGS: A right-sided chest tube is seen in the lung bases, unchanged in position. A loculated right-sided pleural effusion is again noted extending along the right lateral chest wall, unchanged. There is evidence of central vascular congestion and perihilar opacities are seen bilaterally, suggesting pulmonary edema. Findings may, however, be also related to underdistention of the lungs with accentuation of lung markings. Superimposed right basilar consolidation or atelectasis is also seen. No pneumothorax is seen. The cardiomediastinal silhouette is enlarged, unchanged. Bony structures are unremarkable. IMPRESSION: 1. No interval change in loculated right-sided pleural effusion with indwelling right basilar chest tube. 2. Interval development of mild interstitial pulmonary edema is suspected. Alternatively, findings may be related to lower lung volumes and crowding of bronchovascular lung markings. Close clinical correlation and follow-up chest x-rays recommended for reassessment. 3. Right basilar consolidation or atelectasis, similar to prior exam.
[2017-06-28 14:44] LABS: ABSOLUTE BASOPHIL COUNT 0.1 /CUMM (0.0-0.2); ABSOLUTE EOSINOPHIL COUNT 0.2 /CUMM (0.0-0.7); ABSOLUTE GRANULOCYTE CT 9.1 /CUMM (1.4-6.5); ABSOLUTE LYMPH COUNT 1.4 /CUMM (1.2-3.4); ABSOLUTE MONOCYTE COUNT 0.5 /CUMM (0.10-0.60); BASOPHIL % 0.6 % (0.0-2.0); EOSINOPHIL % 2.2 % (0-5); GRANULOCYTE % 80.5 % (42.2-75.2); MEAN CORPUSCULAR HGB 30.1 PG (27.0-31.0); MEAN CORPUSCULAR HGB CONC 33.6 G/DL (33.0-37.0); MEAN CORPUSCULAR VOLUME 89.7 FL (81.0-99.0); MEAN PLATELET VOLUME 6.6 FL (7.4-10.4); PLATELET COUNT 345 /CUMM (130-400); RBC DISTRIBUTION WIDTH 18.6 % (11.5-14.5); RED BLOOD CELL CT 2.15 /CUMM (4.20-5.40); WHITE BLOOD CELL COUNT 11.3 /CUMM (4.8-10.8)
[2017-06-28 14:52] LABS: HEMATOCRIT 19.3 % (37-47)
[2017-06-28 16:00] VITALS: BP 120/58
[2017-06-28 20:00] VITALS: BP 130/50
[2017-06-28 22:00] VITALS: BP 157/68
[2017-06-28 22:41] LABS: ABSOLUTE BASOPHIL COUNT 0.1 /CUMM (0.0-0.2); ABSOLUTE EOSINOPHIL COUNT 0.4 /CUMM (0.0-0.7); ABSOLUTE GRANULOCYTE CT 10.4 /CUMM (1.4-6.5); ABSOLUTE LYMPH COUNT 1.5 /CUMM (1.2-3.4); ABSOLUTE MONOCYTE COUNT 0.6 /CUMM (0.10-0.60); BASOPHIL % 0.7 % (0.0-2.0); EOSINOPHIL % 3.3 % (0-5); GRANULOCYTE % 80.4 % (42.2-75.2); HEMATOCRIT 21.3 % (37-47); MEAN CORPUSCULAR HGB 29.7 PG (27.0-31.0); MEAN CORPUSCULAR HGB CONC 32.7 G/DL (33.0-37.0); MEAN PLATELET VOLUME 6.9 FL (7.4-10.4); PLATELET COUNT 352 /CUMM (130-400); RBC DISTRIBUTION WIDTH 18.1 % (11.5-14.5); RED BLOOD CELL CT 2.34 /CUMM (4.20-5.40)
[2017-06-29] VITALS (7 sets, daily range): BP systolic 112–154; BP diastolic 40–74
[2017-06-29 05:53] LABS: ABSOLUTE BASOPHIL COUNT 0.1 /CUMM (0.0-0.2); ABSOLUTE EOSINOPHIL COUNT 0.3 /CUMM (0.0-0.7); ABSOLUTE GRANULOCYTE CT 10.8 /CUMM (1.4-6.5); ABSOLUTE LYMPH COUNT 1.3 /CUMM (1.2-3.4); ABSOLUTE MONOCYTE COUNT 0.6 /CUMM (0.10-0.60); BASOPHIL % 0.6 % (0.0-2.0); EOSINOPHIL % 2.7 % (0-5); GRANULOCYTE % 82.1 % (42.2-75.2); MEAN CORPUSCULAR HGB 30.2 PG (27.0-31.0); MEAN CORPUSCULAR HGB CONC 33.3 G/DL (33.0-37.0); MEAN CORPUSCULAR VOLUME 90.5 FL (81.0-99.0); MEAN PLATELET VOLUME 6.9 FL (7.4-10.4); PLATELET COUNT 310 /CUMM (130-400); RBC DISTRIBUTION WIDTH 17.7 % (11.5-14.5); RED BLOOD CELL CT 2.03 /CUMM (4.20-5.40); WHITE BLOOD CELL COUNT 13.1 /CUMM (4.8-10.8)
[2017-06-29 06:16] LABS: HEMATOCRIT 18.4 % (37-47)
--- NOTE | 2017-06-29 07:19 | PN- Housestaff ---
Subjective Follow-up For: POD 4 s/p R thoracotomy/decortication for empyema Subjective: Ms Vo was seen any examined this morning. She is resting comfrotably in bed. She has not complaints and appear anxious owing to the fact that she was told she may have to go down for a CT scan. She states that she is afraid to lie flat in the setting of increased dyspnea and anxiety. She does not endorse any other complaints and has been tolerating PO intake well. She denies any fever, chills, nausea or vomiting. Review of Systems Constitutional: Reports: see HPI. Objective Last 24 Hrs of Vital Signs/I&O Vital Signs Date Time Temp Pulse Resp B/P B/P Pulse O2 O2 Flow FiO2 Mean Ox Delivery Rate 06/29 1600 Nasal 2.0L Cannula 06/29 1600 96.9 70 20 142/62 97 Nasal 2.0L Cannula 06/29 0801 97 Nasal 2.0L Cannula 06/29 799 Nasal 2.0L Cannula 06/29 08 97.2 58 20 112/50 96 Nasal 2.0L Cannula 06/29 0600 60 20 134/74 98 Nasal 2.0L Cannula 06/29 0400 63 20 121/50 Nasal 2.0L Cannula 06/29 0200 64 20 154/65 99 Nasal 2.0L Cannula 06/29 0000 65 20 137/55 06/29 0000 99 Nasal 2.0L Cannula 06/28 2200 97.2 67 20 157/68 93 Nasal 2.0L Cannula 06/28 2105 96 Nasal 2.0L Cannula 06/28 2000 96.9 68 18 130/50 93 Nasal 2.0L Cannula Intake & Output 06/29 1600 06/29 0800 06/29 0000 Intake Total 8595 749 6710 Output Total 004 667 6270 Balance 530 -467 280 Intake, Blood 340 370 Product Intake, IV 130 130 Intake, Oral 960 500 780 Number 4 4 Bowel Movements Output, Chest 17 Tube Drainage Output, Urine 568 530 8536 Patient 111.584 kg Weight Physical Exam General Appearance: Alert, Oriented X3, Cooperative Lymphatic: Cervical nl Cardiovascular: Regular Rate, Normal S1, Normal S2 Lungs: Clear to Auscultation, Chest tube in place. RIght chest wall appears sealed off with tape. Mild tenderness on palpation. Abdomen: Normal Bowel Sounds, Soft, No Tenderness Neurological: Normal Speech, Sensation Intact Extremities: No Edema, LEFT BKA Current Medications: Current Medications Sig/Suleman Start time Last Medication Dose Route Stop Time Status Admin Acetaminophen 1,000 MG Q6P PRN 06/19 1130 AC 06/25 N/A 1 UNIT IV 1527 Albuterol Sulfate 3 ML EVERY 4 HRS/AWAKE 06/26 1234 AC 06/29 INH 1320 Ampicillin Sodium/ 3,000 MG Q8H 06/23 1600 AC 06/29 Sulbactam Sodium IV 0833 Sodium Chloride 100 ML Atorvastatin Calcium 40 MG 1700 06/15 1700 AC 06/28 PO 1722 Calcium Carbonate 500 MG DAILY 06/21 1000 AC 06/29 PO 0833 Docusate Sodium 100 MG BID 06/12 2359 AC 06/28 PO 0853 Hydromorphone HCl 2 MG Q4P PRN 06/27 1115 AC 06/29 IV 0212 Hydromorphone HCl 1.2 MG Q4-6 PRN PRN 06/24 1100 AC 06/27 IV 0522 Insulin Aspart 0 TIDAC/HS 06/24 1200 AC 06/29 SC 1204 Insulin Detemir 25 UNITS BID 06/28 2200 AC 06/29 SC 0833 Lidocaine 1 PAT DAILY@1700 06/20 1700 AC 06/27 EXT 1644 Lorazepam 1 MG ONCE ONE 06/29 0915 DC 06/29 IV 06/29 0916 0908 Melatonin 5 MG AT BEDTIME 06/21 2200 AC 06/28 PO 2156 Nitroglycerin 0.5 GM Q6P PRN 06/15 1830 TOP Oxycodone HCl 40 MG Q12 06/25 2200 AC 06/29 PO 0833 Oxycodone HCl 10 MG Q4P PRN 06/23 1730 AC 06/25 PO 0944 Oxycodone HCl 20 MG Q4P PRN 06/23 1730 AC 06/27 PO 0257 Pregabalin 75 MG BID 06/13 2200 AC 06/29 PO 0833 Senna/Docusate Sodium 1 TAB BID 06/27 1145 AC 06/28 PO 0853 Sodium Chloride 2 SPRAY Q4P PRN 06/27 0015 06/27 TREY 0209 Tiotropium [place] 1 PUF DAILY 06/14 1000 AC 06/29 INH 1204 Last 24 Hrs of Lab/Drew Results Last 24 Hrs of Labs/Mics: Laboratory Tests 06/29/17 1405: CBC w Diff NO MAN DIFF REQ, RBC 2.07 L, MCV 90.1, MCH 30.4, RDW 16.4 H, MPV 6.7 L, Gran % 82.3 H, Lymphocytes % 10.5 L, Monocytes % 4.6, Eosinophils % 2.1, Basophils % 0.5, Absolute Granulocytes 9.5 H, Absolute Lymphocytes 1.2, Absolute Monocytes 0.5, Absolute Eosinophils 0.2, Absolute Basophils 0.1, PUBS MCHC 33.7 06/29/17 0430: Anion Gap 13, Estimated GFR 15 L, Glucose 197 H, Calcium 8.2 L, Phosphorus 5.4 H, Magnesium 1.7, Total Bilirubin 0.3, AST 18, ALT 34, Albumin 2.2 L, CBC w Diff NO MAN DIFF REQ, RBC 2.03 L, MCV 90.5, MCH 30.2, RDW 17.7 H, MPV 6.9 L , Gran % 82.1 H, Lymphocytes % 10.2 L, Monocytes % 4.4, Eosinophils % 2.7, Basophils % 0.6, Absolute Granulocytes 10.8 H, Absolute Lymphocytes 1.3, Absolute Monocytes 0.6, Absolute Eosinophils 0.3, Absolute Basophils 0.1, PUBS MCHC 33.3 06/28/17 2130: CBC w Diff NO MAN DIFF REQ, RBC 2.34 L, MCV 91.0, MCH 29.7, RDW 18.1 H, MPV 6.9 L, Gran % 80.4 H, Lymphocytes % 11.4 L, Monocytes % 4.2, Eosinophils % 3.3, Basophils % 0.7, Absolute Granulocytes 10.4 H, Absolute Lymphocytes 1.5, Absolute Monocytes 0.6, Absolute Eosinophils 0.4, Absolute Basophils 0.1, PUBS MCHC 32.7 L Assessment/Plan Assessment: 61-year-old woman, current smoker with a history of COPD, diabetes type 2 with diabetic neuropathy, left leg DVT status post IVC filter, chronic kidney disease , neuropathy and peripheral vascular disease, 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 Patient had drainage and Pleurx catheter drain placed on the for question of empyema. Fluid was found to be slightly blood tinged serous grossly. Fluid composition showed elevated WBCs, RBCs, pH 6.4, LDH of 3819. She is on Unasyn. She was found to have extremely elevated white blood cell count on admission of 44. Chest x-ray done after placement on 06/13 showed persistent moderate volume of her right pleural effusion. WBCs continue to be elevated. Patient had repositioning of pigtail catheter and VQ scan done under anesthesia which returned with low to intermediate probability of PE so she was continued on IV heparin. As per cardiothoracic surgery, the patient might be bleeding and suggests discontinuing heparin. However as per cardiology the patient requires anticoagulation for potential PE. Patient has had minimal drainage after repositioning of pigtail catheter. Plan #1 Acute hypoxic respiratory failure likely secondary to community-acquired pneumonia, COMPLICATED BY EMPYEMA: She was found to have an empyema which was drained with Pleurx catheter. Fluid was found to be exudative in nature. Catheter drainage was ?650 mL of serous sanguinous fluid from first pigtail catheter placement with minimal drainage after repositioning. Repeat CT of the chest was done under anesthesia today, postoperatively stable, clearly shows complex empyema, compressing most of the lung tissue on the right side. Patient sent for lung decortication today. -Chest x-ray today: Persistent consolidation of right middle and right lower lobes and unchanged appearance of the loculated right pleural effusion with thoracostomy tube in place. Unasyn 3 g every 12 to every 8 hours #Pleuritic chest pain with positive troponins: Likely due to demand ischemia, with AMEYA also contributing to it. -According to Dr. Lucas, if patient has precordial chest pain then can begin NTG paste 1/2 inch Q 6 hours. -According to Dr. Lucas, cardiology, myocardial ischemia cannot be 100% excluded and patient should later have outpatient risk stratification with a stress test. #Urinary tract infection: Dirty urine, cultures positive for staph aureus -She has received an adequate course of Vancomycin for a lower urinary tract infection. Currently on Unasyn. Will continue. #Anemia -Patient had hemoglobin 6.1/18.4 this am. She was ordered one unit of PRBC 06/29 , repeat H/H 6.3/18.6. Will be transfused another two units PRBC. -Guaiac + -Formal GI consultation Obtained. Patient might require colnoscopy vs endoscopy. #Insulin-dependent diabetes mellitus, Uncontrolled * Blood sugars are at 234, 274,205 * SS adjusted as per endo recommendations. * Levemir 25 Units BID, If patient needs to be made NPO, will have to reduce levemir to 20 units and adjust SS. # Elevated proBNP at 2590. No previous echo on record. * Echo showed good ejection fraction and no obvious wall motion regional abnormalities * Daily I/O and weight checks. #Acute kidney injury on chronic kidney disease * Patient has had persistent bicarb deficiency during this stay, has never had this problem before. * Monitory BEP. Cr 3.1 * Avoid nephrotoxins # Hyperkalemia * Potassium has normalized. K: 4.4 #Diarrhea, Resolved * Discontinue stool softener * Stool for C. difficile if diarrhea continues 24 hours after stopping stool softener -Pain Control with Dilaudid and IV Tylenol -Diabetic diet -DVT prophylaxis Alps on right leg -Full code Problem List: 1. Empyema 2. Acute blood loss anemia Pain Ratin Pain Location: No Pain endorsed Pain Goal: Remain pain free Pain Plan: Acetaminopahen Tomorrow's Labs & Rationales: CBC: monitor H/H in the setting of acute blood loss anemia ICU Bundle: Monitor electtrolytes in the setting of acute illness
--- NOTE | 2017-06-29 07:46 | PN- Diabetes ---
Assessment/Plan Assessment: This 61-year-old woman with a known history of type 2 diabetes mellitus associated with morbid obesity and with severe complications including a left below the knee amputation diabetic neuropathy and chronic kidney diseases stage 4 presented to the emergency room with respiratory failure. The patient underwent right thoracotomy with drainage of an empyema. A great deal of loculation of fibrosis was found apparently according to the operative note. The patient is on Levemir 25 units twice a day. She is awake and alert this morning. The patient is eating a little better. Her blood sugar this morning is 197 in the lab at 4:30 AM. Fingerstick blood sugars yesterday were 265 before breakfast, 349 before lunch, 198 before dinner, and 235 at bedtime. The patient's hematocrit is only 18. Her stool guaiac is positive. She is currently receiving a transfusion. Plan: Suggest continue Levemir 25 units twice a day. We can adjust her NovoLog coverage before meals to be 80-150 give 3 units NovoLog, 151-200 give 4 units NovoLog, 201-250 give 5 units NovoLog, 251-300 give 7 units NovoLog, 301-350 give 9 units NovoLog, 351-400 give 11 units NovoLog. Bedtime sliding-scale NovoLog should stay the same. If the patient is made nothing by mouth for procedures on her GI tract, then he would reduce her Levemir to 20 units the night before the procedure and begin IV D5 half-normal saline at 75 mL per hour. At that point while nothing by mouth we would change her NovoLog coverage to every 4 hours. NovoLog coverage every 4 hours while nothing by mouth should be less than 150 give no insulin, 151 200 give 3 units NovoLog, 201-250 give 4 units NovoLog, 251-300 give 5 units NovoLog , 301-350 give 6 units NovoLog, 351-400 give 7 units NovoLog. Subjective Subjective: Feels discouraged Review of Systems Constitutional: Denies: chills, fever. Cardiovascular: Denies: chest pain. Respiratory: Denies: cough, short of breath. Gastrointestinal: Denies: nausea, vomiting. Objective Last 24 Hrs of Vital Signs/I&O Vital Signs Date Time Temp Pulse Resp B/P B/P Pulse O2 O2 Flow FiO2 Mean Ox Delivery Rate 06/29 0000 99 Nasal 2.0L Cannula 06/28 2200 97.2 67 20 157/68 93 Nasal 2.0L Cannula 06/28 2104 96 Nasal 2.0L Cannula 06/28 1999 96.9 68 18 130/50 93 Nasal 2.0L Cannula 06/28 1599 Nasal 2.0L Cannula 06/28 1599 97.5 70 20 120/58 97 Nasal 2.0L Cannula 06/28 922 97 Nasal 2.5L Cannula 06/28 799 98 Nasal 2.0L Cannula 06/28 799 97.0 64 20 136/66 98 Nasal 2.0L Cannula Intake & Output 06/29 0000 06/28 1600 Intake Total 500 1280 1530 Output Total 967 1000 1023 Balance -467 280 507 Intake, Blood 370 200 Product Intake, IV 130 130 Intake, Oral 372 891 5852 Number 4 0 Bowel Movements Output, Chest 17 23 Tube Drainage Output, Urine 950 1000 1000 Vital Signs Date Time Temp Pulse Resp B/P B/P Pulse O2 O2 Flow FiO2 Mean Ox Delivery Rate 06/29 0000 99 Nasal 2.0L Cannula 06/28 2199 97.2 67 20 157/68 93 Nasal 2.0L Cannula 06/28 2104 96 Nasal 2.0L Cannula 06/28 1999 96.9 68 18 130/50 93 Nasal 2.0L Cannula 06/28 1600 Nasal 2.0L Cannula 06/28 1599 97.5 70 20 120/58 97 Nasal 2.0L Cannula 06/28 922 97 Nasal 2.5L Cannula 06/28 799 98 Nasal 2.0L Cannula 06/28 799 97.0 64 20 136/66 98 Nasal 2.0L Cannula Intake & Output 06/29 0000 06/28 1600 Intake Total 1280 1530 Output Total 1000 1023 Balance 280 507 Intake, Blood 370 200 Product Intake, IV 130 130 Intake, Oral 780 1200 Number 4 0 Bowel Movements Output, Chest 23 Tube Drainage Output, Urine 1000 1000 Physical Exam General Appearance: alert, awake, obese Head: normal appearance Neck: normal inspection Respiratory: normal breath sounds Cardiovascular: regular rate/rhythm Current Medications: Current Medications Sig/Suleman Start time Last Medication Dose Route Stop Time Status Admin Acetaminophen 1,000 MG Q6P PRN 06/19 1130 AC 06/25 N/A 1 UNIT IV 1527 Albuterol Sulfate 3 ML EVERY 4 HRS/AWAKE 06/26 1234 AC 06/28 INH 2101 Ampicillin Sodium/ 3,000 MG Q8H 06/23 1600 AC 06/29 Sulbactam Sodium IV 0013 Sodium Chloride 100 ML Aspirin 325 MG DAILY 06/25 1145 DC 06/28 PO 0853 Atorvastatin Calcium 40 MG 1700 06/15 1700 AC 06/28 PO 1722 Calcium Carbonate 500 MG DAILY 06/21 1000 AC 06/28 PO 0853 Docusate Sodium 100 MG BID 06/12 2359 AC 06/28 PO 0853 Hydromorphone HCl 2 MG Q4P PRN 06/27 1115 AC 06/29 IV 0212 Hydromorphone HCl 1.2 MG Q4-6 PRN PRN 06/24 1100 AC 06/27 IV 0522 Insulin Aspart 0 TIDAC/HS 06/24 1200 AC 06/28 SC 2155 Insulin Detemir 25 UNITS BID 06/28 2200 AC 06/28 SC 2156 Insulin Detemir 22 UNITS BID 06/26 1000 DC 06/28 SC 0854 Lidocaine 1 PAT DAILY@1700 06/20 1700 AC 06/27 EXT 1644 Melatonin 5 MG AT BEDTIME 06/21 2200 AC 06/28 PO 2156 Nitroglycerin 0.5 GM Q6P PRN 06/15 1830 AC TOP Oxycodone HCl 40 MG Q12 06/25 2200 AC 06/28 PO 2157 Oxycodone HCl 10 MG Q4P PRN 06/23 1730 AC 06/25 PO 0944 Oxycodone HCl 20 MG Q4P PRN 06/23 1730 AC 06/27 PO 0257 Pregabalin 75 MG BID 06/13 2200 AC 06/28 PO 2156 Senna/Docusate Sodium 1 TAB BID 06/27 1145 AC 06/28 PO 0853 Sodium Chloride 2 SPRAY Q4P PRN 06/27 0015 06/27 TREY 0209 Sodium Chloride 1,000 ML Q13H 06/26 1900 DC 06/27 IV 1525 Tiotropium [place] 1 PUF DAILY 06/14 1000 AC 06/28 INH 0853 Findings Pertinent Lab/Drew Results: Laboratory Tests 06/29 06/28 0430 2130 Chemistry Sodium (137 - 145 mmol/L) 141 Potassium (3.5 - 5.1 mmol/L) 4.4 Chloride (98 - 107 mmol/L) 107 Carbon Dioxide (22 - 30 mmol/L) 21 L Anion Gap (5 - 16) 13 BUN (7 - 17 mg/dL) 75 H Creatinine (0.5 - 1.0 mg/dL) 3.1 H Estimated GFR (>60 ml/min) 15 L Glucose (65 - 99 mg/dL) 197 H Calcium (8.4 - 10.2 mg/dL) 8.2 L Phosphorus (2.5 - 4.5 mg/dL) 5.4 H Magnesium (1.6 - 2.3 mg/dL) 1.7 Total Bilirubin (0.2 - 1.3 mg/dL) 0.3 AST (14 - 36 U/L) 18 ALT (9 - 52 U/L) 34 Albumin (3.5 - 5.0 g/dL) 2.2 L Hematology CBC w Diff NO MAN DIFF REQ NO MAN DIFF REQ WBC (4.8 - 10.8 /CUMM) 13.1 H 13.0 H RBC (4.20 - 5.40 /CUMM) 2.03 L 2.34 L Hgb (12.0 - 16.0 G/DL) 6.1 *L 7.0 *L Hct (37 - 47 %) 18.4 *L 21.3 L MCV (81.0 - 99.0 FL) 90.5 91.0 MCH (27.0 - 31.0 PG) 30.2 29.7 RDW (11.5 - 14.5 %) 17.7 H 18.1 H Plt Count (130 - 400 /CUMM) 310 352 MPV (7.4 - 10.4 FL) 6.9 L 6.9 L Gran % (42.2 - 75.2 %) 82.1 H 80.4 H Lymphocytes % (20.5 - 51.1 %) 10.2 L 11.4 L Monocytes % (1.7 - 9.3 %) 4.4 4.2 Eosinophils % (0 - 5 %) 2.7 3.3 Basophils % (0.0 - 2.0 %) 0.6 0.7 Absolute Granulocytes (1.4 - 6.5 /CUMM) 10.8 H 10.4 H Absolute Lymphocytes (1.2 - 3.4 /CUMM) 1.3 1.5 Absolute Monocytes (0.10 - 0.60 /CUMM) 0.6 0.6 Absolute Eosinophils (0.0 - 0.7 /CUMM) 0.3 0.4 Absolute Basophils (0.0 - 0.2 /CUMM) 0.1 0.1 PUBS MCHC (33.0 - 37.0 G/DL) 33.3 32.7 L 06/28 06/28 1420 1230 Hematology CBC w Diff NO MAN DIFF REQ WBC (4.8 - 10.8 /CUMM) 11.3 H RBC (4.20 - 5.40 /CUMM) 2.15 L Hgb (12.0 - 16.0 G/DL) 6.5 *L Hct (37 - 47 %) 19.3 *L MCV (81.0 - 99.0 FL) 89.7 MCH (27.0 - 31.0 PG) 30.1 RDW (11.5 - 14.5 %) 18.6 H Plt Count (130 - 400 /CUMM) 345 MPV (7.4 - 10.4 FL) 6.6 L Gran % (42.2 - 75.2 %) 80.5 H Lymphocytes % (20.5 - 51.1 %) 12.4 L Monocytes % (1.7 - 9.3 %) 4.3 Eosinophils % (0 - 5 %) 2.2 Basophils % (0.0 - 2.0 %) 0.6 Absolute Granulocytes (1.4 - 6.5 /CUMM) 9.1 H Absolute Lymphocytes (1.2 - 3.4 /CUMM) 1.4 Absolute Monocytes (0.10 - 0.60 /CUMM) 0.5 Absolute Eosinophils (0.0 - 0.7 /CUMM) 0.2 Absolute Basophils (0.0 - 0.2 /CUMM) 0.1 PUBS MCHC (33.0 - 37.0 G/DL) 33.6 Urines Urinalysis LIGHT H Urine Color (YEL,AMB,STR) YEL Urine Clarity (CLEAR) HAZY H Urine pH (5.0 - 8.0) 6.0 Ur Specific [place] (1.001 - 1.035) 1.020 Urine Protein (NEG,<30 MG/DL) 100 H Urine Ketones (NEG) NEG Urine Nitrite (NEG) NEG Urine Bilirubin (NEG) NEG Urine Urobilinogen (0.1 - 1.0 EU/dl) 0.2 Ur Leukocyte Esterase (NEG) MOD H Ur Microscopic SEDIMENT EXAMINED Urine RBC (0 - 5 /HPF) 1-3 Urine WBC (0 - 2 /HPF) 25-50 H Ur Epithelial Cells (NONE,FEW) MOD H Urine Bacteria (NEG/NONE) FEW H Urine Mucus (FEW,NONE) FEW Micro UA Comment BUDDING YEAST H Urine Hemoglobin (NEG) SMALL H Urine Glucose (N MG/DL) 250 H
--- NOTE | 2017-06-29 08:21 | RADIOLOGY REPORT ---
EXAMINATION: XR PORTABLE CHEST CLINICAL INFORMATION: Chest tube. Decreased hematocrit. COMPARISON: 06/28/2017 TECHNIQUE: Portable frontal view of the chest was obtained. FINDINGS: Multiple monitoring leads overlie the chest. Again noted is a thoracostomy tube in the base of the right hemithorax, right middle/lower lobe opacity, and unchanged moderate sized loculated right pleural effusion. Lungs are hypoinflated. No pulmonary edema, pneumothorax or other interval change compared the prior radiograph. IMPRESSION: Persistent consolidation of right middle and right lower lobes and unchanged appearance of the loculated right pleural effusion with thoracostomy tube in place.
--- NOTE | 2017-06-29 10:04 | PN- Pulmonary ---
Subjective HPI/Critical Care Issues: Chest tube drainage is now minimal. She continues to have evidence of acute blood loss anemia requiring transfusion Objective Current Medications: Current Medications Sig/Suleman Start time Last Medication Dose Route Stop Time Status Admin Acetaminophen 1,000 MG Q6P PRN 06/19 1130 AC 06/25 N/A 1 UNIT IV 1527 Albuterol Sulfate 3 ML EVERY 4 HRS/AWAKE 06/26 1234 AC 06/29 INH 0756 Ampicillin Sodium/ 3,000 MG Q8H 06/23 1600 AC 06/29 Sulbactam Sodium IV 0833 Sodium Chloride 100 ML Aspirin 325 MG DAILY 06/25 1145 DC 06/28 PO 0853 Atorvastatin Calcium 40 MG 1700 06/15 1700 AC 06/28 PO 1722 Calcium Carbonate 500 MG DAILY 06/21 1000 AC 06/29 PO 0833 Docusate Sodium 100 MG BID 06/12 2359 AC 06/28 PO 0853 Hydromorphone HCl 2 MG Q4P PRN 06/27 1115 AC 06/29 IV 0212 Hydromorphone HCl 1.2 MG Q4-6 PRN PRN 06/24 1100 AC 06/27 IV 0522 Insulin Aspart 0 TIDAC/HS 06/24 1200 AC 06/29 SC 0834 Insulin Detemir 25 UNITS BID 06/28 2200 AC 06/29 SC 0833 Insulin Detemir 22 UNITS BID 06/26 1000 DC 06/28 SC 0854 Lidocaine 1 PAT DAILY@1700 06/20 1700 AC 06/27 EXT 1644 Lorazepam 1 MG ONCE ONE 06/29 0915 DC 06/29 IV 06/29 0916 0908 Melatonin 5 MG AT BEDTIME 06/21 2200 AC 06/28 PO 2156 Nitroglycerin 0.5 GM Q6P PRN 06/15 1830 AC TOP Oxycodone HCl 40 MG Q12 06/25 2200 AC 06/29 PO 0833 Oxycodone HCl 10 MG Q4P PRN 06/23 1730 AC 06/25 PO 0944 Oxycodone HCl 20 MG Q4P PRN 06/23 1730 AC 06/27 PO 0257 Pregabalin 75 MG BID 06/13 2200 AC 06/29 PO 0833 Senna/Docusate Sodium 1 TAB BID 06/27 1145 AC 06/28 PO 0853 Sodium Chloride 2 SPRAY Q4P PRN 06/27 0015 AC 06/27 TREY 0209 Sodium Chloride 1,000 ML Q13H 06/26 1900 DC 06/27 IV 1525 Tiotropium [place] 1 PUF DAILY 06/14 1000 AC 06/28 INH 0853 Vital Signs & I&O Last 24 Hrs of Vitals and I&O: Vital Signs Date Time Temp Pulse Resp B/P B/P Pulse O2 O2 Flow FiO2 Mean Ox Delivery Rate 06/29 0801 97 Nasal 2.0L Cannula 06/29 0600 60 20 134/74 98 Nasal 2.0L Cannula 06/29 0400 63 20 121/50 Nasal 2.0L Cannula 06/29 0200 64 20 154/65 99 Nasal 2.0L Cannula 06/29 0000 65 20 137/55 06/29 0000 99 Nasal 2.0L Cannula 06/28 2200 97.2 67 20 157/68 93 Nasal 2.0L Cannula 06/28 2105 96 Nasal 2.0L Cannula 06/28 2000 96.9 68 18 130/50 93 Nasal 2.0L Cannula 06/28 1600 Nasal 2.0L Cannula 06/28 1600 97.5 70 20 120/58 97 Nasal 2.0L Cannula Intake & Output 06/29 1600 06/29 0800 06/29 0000 Intake Total 440 550 4068 Output Total 500 380 8223 Balance -170 -467 280 Intake, Blood 370 Product Intake, IV 130 130 Intake, Oral 500 780 Number 1 4 Bowel Movements Output, Chest 17 Tube Drainage Output, Urine 990 833 4348 Patient 246 lb Weight Since saturation improved 2 L 97% exam for chest continues shows diminished breath sounds at the right base cardiac exam shows regular S1 and S2 without murmurs Impression/Plan Impression/Plan Impression/Plan: 61-year-old with right-sided empyema secondary to community-acquired pneumonia with associated sepsis. Patient has persistent loculated effusion and leukocytosis complicated by DVT now status post evacuation of empyema and hemothorax if chest tubes continue to show progressively decreased drainage planned sequential removal per CT surgery patient continues to improve and white count has decreased white count has markedly improved and there is minimal chest tube drainage. Source of blood loss is uncertain Recommendations: Pulmonary toilet and incentive spirometry. Decision to remove chest tubes per CT surgery. Patient should be mobilized out of bed Taper FiO2 his saturations allow need for CT scan of chest abdomen and pelvis was explained to the patient.
--- NOTE | 2017-06-29 10:45 | PN- Att Addend ---
Attending Addendum Attending Brief Note Patient still in the ICU. Transfusion in progress for low H&H, trying to figure out where the blood loss is coming from. Yesterday she had refused a CT of the chest, but agreed to go today for also a GI consult was requested consult the positive stools for occult blood. Also monitoring the blood sugars following endocrine and recommendations, following ID recommendations 1 chest tubes remain in position. Vital signs are stable no fever. No major changes on physical. Intake & Output 06/29 0400 06/28 0400 06/27 1600 06/27 0400 Intake Total 630 1280 2108 660 2215 1980 Output Total 1267 1000 1943 560 200 Balance -637 280 874 663 8174 1780 Intake, Blood 370 389 Product Intake, IV 130 130 670 020 3848 280 Intake, Oral 075 847 4728 177 986 2755 Number 1 4 0 0 Bowel Movements Output, Chest 17 43 60 Tube Drainage Output, Urine 1250 1000 1900 500 200 Patient 246 lb 215 lb 232 lb Weight Weight Bed scale Measurement Method Current Medications Sig/Suleman Start time Last Medication Dose Route Stop Time Status Admin Acetaminophen 1,000 MG Q6P PRN 06/19 1130 AC 06/25 N/A 1 UNIT IV 1527 Albuterol Sulfate 3 ML EVERY 4 HRS/AWAKE 06/26 1234 AC 06/29 INH 0756 Ampicillin Sodium/ 3,000 MG Q8H 06/23 1600 AC 06/29 Sulbactam Sodium IV 0833 Sodium Chloride 100 ML Aspirin 325 MG DAILY 06/25 1145 DC 06/28 PO 0853 Atorvastatin Calcium 40 MG 1700 06/15 1700 AC 06/28 PO 1722 Calcium Carbonate 500 MG DAILY 06/21 1000 AC 06/29 PO 0833 Docusate Sodium 100 MG BID 06/12 2359 AC 06/28 PO 0853 Hydromorphone HCl 2 MG Q4P PRN 06/27 1115 AC 06/29 IV 0212 Hydromorphone HCl 1.2 MG Q4-6 PRN PRN 06/24 1100 AC 06/27 IV 0522 Insulin Aspart 0 TIDAC/HS 06/24 1200 AC 06/29 SC 0834 Insulin Detemir 25 UNITS BID 06/28 2200 AC 06/29 SC 0833 Insulin Detemir 22 UNITS BID 06/26 1000 DC 06/28 SC 0854 Lidocaine 1 PAT DAILY@1700 06/20 1700 AC 06/27 EXT 1644 Lorazepam 1 MG ONCE ONE 06/29 914 DC 06/29 IV 06/29 915 09 Melatonin 5 MG AT BEDTIME 06/21 220 AC 06/28 PO 2156 Nitroglycerin 0.5 GM Q6P PRN 06/15 1830 AC TOP Oxycodone HCl 40 MG Q12 06/25 220 AC 06/29 PO 0833 Oxycodone HCl 10 MG Q4P PRN 06/23 1730 AC 06/25 PO 0944 Oxycodone HCl 20 MG Q4P PRN 06/23 1730 AC 06/27 PO 0257 Pregabalin 75 MG BID 06/13 220 AC 06/29 PO 0833 Senna/Docusate Sodium 1 TAB BID 06/27 1145 AC 06/28 PO 0853 Sodium Chloride 2 SPRAY Q4P PRN 06/27 0015 AC 06/27 TREY 0209 Tiotropium [place] 1 PUF DAILY 06/14 1000 AC 06/28 INH 0853 Laboratory Tests 06/29/17 0430: Anion Gap 13, Estimated GFR 15 L, Glucose 197 H, Calcium 8.2 L, Phosphorus 5.4 H, Magnesium 1.7, Total Bilirubin 0.3, AST 18, ALT 34, Albumin 2.2 L, CBC w Diff NO MAN DIFF REQ, RBC 2.03 L, MCV 90.5, MCH 30.2, RDW 17.7 H, MPV 6.9 L , Gran % 82.1 H, Lymphocytes % 10.2 L, Monocytes % 4.4, Eosinophils % 2.7, Basophils % 0.6, Absolute Granulocytes 10.8 H, Absolute Lymphocytes 1.3, Absolute Monocytes 0.6, Absolute Eosinophils 0.3, Absolute Basophils 0.1, PUBS MCHC 33.3 06/28/170: CBC w Diff NO MAN DIFF REQ, RBC 2.34 L, MCV 91.0, MCH 29.7, RDW 18.1 H, MPV 6.9 L, Gran % 80.4 H, Lymphocytes % 11.4 L, Monocytes % 4.2, Eosinophils % 3.3, Basophils % 0.7, Absolute Granulocytes 10.4 H, Absolute Lymphocytes 1.5, Absolute Monocytes 0.6, Absolute Eosinophils 0.4, Absolute Basophils 0.1, PUBS MCHC 32.7 L 06/28/17 1420: CBC w Diff NO MAN DIFF REQ, RBC 2.15 L, MCV 89.7, MCH 30.1, RDW 18.6 H, MPV 6.6 L, Gran % 80.5 H, Lymphocytes % 12.4 L, Monocytes % 4.3, Eosinophils % 2.2, Basophils % 0.6, Absolute Granulocytes 9.1 H, Absolute Lymphocytes 1.4, Absolute Monocytes 0.5, Absolute Eosinophils 0.2, Absolute Basophils 0.1, [facility] 33.6 06/28/17 1230: Urinalysis LIGHT H, Urine Color YEL, Urine Clarity HAZY H, Urine pH 6.0, Ur Specific [place] 1.020, Urine Protein 100 H, Urine Ketones NEG, Urine Nitrite NEG, Urine Bilirubin NEG, Urine Urobilinogen 0.2, Ur Leukocyte Esterase MOD H, Ur Microscopic SEDIMENT EXAMINED, Urine RBC 1-3, Urine WBC 25-50 H, Ur Epithelial Cells MOD H, Urine Bacteria FEW H, Urine Mucus FEW, Micro UA Comment [place] H, Urine Hemoglobin SMALL H, Urine Glucose 250 H 06/28/17 0400: Anion Gap 10, Estimated GFR 14 L, BUN/Creatinine Ratio 18.2, Phosphorus 5.2 H, Magnesium 1.7, CBC w Diff NO MAN DIFF REQ, RBC 1.99 L, MCV 93.1, MCH 31.3 H, RDW 16.9 H, MPV 7.1 L, Gran % 83.0 H, Lymphocytes % 8.5 L, Monocytes % 4.5, Eosinophils % 3.6, Basophils % 0.4, Absolute Granulocytes 9.9 H, Absolute Lymphocytes 1.0 L, Absolute Monocytes 0.5, Absolute Eosinophils 0.4, Absolute Basophils 0.1, [facility] 33.6 06/27/178: CBC w Diff NO MAN DIFF REQ, RBC 1.93 L, MCV 93.7, MCH 31.7 H, RDW 17.4 H, MPV 6.9 L, Gran % 82.3 H, Lymphocytes % 9.2 L, Monocytes % 4.8, Eosinophils % 3.2 , Basophils % 0.5, Absolute Granulocytes 9.6 H, Absolute Lymphocytes 1.1 L, Absolute Monocytes 0.6, Absolute Eosinophils 0.4, Absolute Basophils 0.1, [facility] 33.8 06/27/17 0500: Anion Gap 12, Estimated GFR 14 L, Glucose 190 H, Calcium 8.5, Phosphorus 5.8 H, Magnesium 1.8, Total Bilirubin 0.3, AST 15, ALT 25, Albumin 2.5 L, CBC w Diff MAN DIFF ORDERED, RBC 2.31 L, MCV 94.6, MCH 31.7 H, RDW 17.7 H, MPV 7.2 L, Gran % 85.1 H, Lymphocytes % 8.4 L, Monocytes % 3.4, Eosinophils % 2.7, Basophils % 0.4, Absolute Granulocytes 12.2 H, Segmented Neutrophils 79 H, Band Neutrophils 1, Absolute Lymphocytes 1.2, Lymphocytes 8 L, Monocytes 7, Absolute Monocytes 0.5, Eosinophils 5, Absolute Eosinophils 0.4, Absolute Basophils 0.1, Platelet Estimate INCREASED, Polychromasia 1+, Basophilic Stippling SLIGHT, Ovalocytes FEW, PUBS MCHC 33.5, Fld Total RBCs Counted 100 Microbiology 06/28 1230 URINE ROUT: Urine Culture - RES Microbiology 06/28 1230 URINE ROUT: Urine Culture - RES Vital Signs Date Time Temp Pulse Resp B/P B/P Pulse O2 O2 Flow FiO2 Mean Ox Delivery Rate 06/29 0801 97 Nasal 2.0L Cannula 06/29 0800 Nasal 2.0L Cannula 06/29 0800 97.2 58 20 112/50 96 Nasal 2.0L Cannula 06/29 0600 60 20 134/74 98 Nasal 2.0L Cannula 06/29 0400 63 20 121/50 Nasal 2.0L Cannula 06/29 0200 64 20 154/65 99 Nasal 2.0L Cannula 06/29 0000 65 20 137/55 06/29 0000 99 Nasal 2.0L Cannula 06/28 2200 97.2 67 20 157/68 93 Nasal 2.0L Cannula 06/28 2105 96 Nasal 2.0L Cannula 06/28 2000 96.9 68 18 130/50 93 Nasal 2.0L Cannula 06/28 1600 Nasal 2.0L Cannula 06/28 1600 97.5 70 20 120/58 97 Nasal 2.0L Cannula
--- NOTE | 2017-06-29 10:48 | PN- Nephrology ---
Assessment/Plan Assessment: 1. Chronic kidney disease. Likely diabetic nephropathy. Her renal function is returned close to her baseline. 2. Pneumonia with empyema. She reports significant relief with placement of the new catheter. 3. Diabetes mellitus 4. Peripheral vascular disease. Status post left BKA 5. Neuropathy 6. Metabolic acidosis. 7. Anemia currently being transfused Suggestion: 1. Avoid nephrotoxins 2. Continue with strict I's and O's and daily weights 3. No change in therapy from a nephrology perspective Subjective Subjective: Feels better. Sitting up in bed. Currently being transfused. Objective Vital Signs and I&Os Vital Signs Date Time Temp Pulse Resp B/P B/P Pulse O2 O2 Flow FiO2 Mean Ox Delivery Rate 06/29 800 97 Nasal 2.0L Cannula 06/29 799 Nasal 2.0L Cannula 06/29 799 97.2 58 20 112/50 96 Nasal 2.0L Cannula 06/29 06 60 20 134/74 98 Nasal 2.0L Cannula 06/29 0400 63 20 121/50 Nasal 2.0L Cannula 06/29 0200 64 20 154/65 99 Nasal 2.0L Cannula 06/29 0000 65 20 137/55 06/29 0000 99 Nasal 2.0L Cannula 06/28 2200 97.2 67 20 157/68 93 Nasal 2.0L Cannula 06/28 2105 96 Nasal 2.0L Cannula 06/28 2000 96.9 68 18 130/50 93 Nasal 2.0L Cannula 06/28 1600 Nasal 2.0L Cannula 06/28 1600 97.5 70 20 120/58 97 Nasal 2.0L Cannula Intake & Output 06/29 1600 06/29 0400 06/28 1600 06/28 0400 06/27 1600 06/27 0400 Intake Total 630 1280 2108 660 2215 1980 Output Total 1267 1000 1943 560 200 Balance -637 280 314 980 2523 1780 Intake, Blood 370 389 Product Intake, IV 130 130 290 357 9947 280 Intake, Oral 610 981 4274 962 379 8048 Number 1 4 0 0 Bowel Movements Output, Chest 17 43 60 Tube Drainage Output, Urine 1250 1000 1900 500 200 Patient 246 lb 215 lb 232 lb Weight Weight Bed scale Measurement Method Current Medications: Current Medications Sig/Suleman Start time Last Medication Dose Route Stop Time Status Admin Acetaminophen 1,000 MG Q6P PRN 12/29 1130 AC 06/25 N/A 1 UNIT IV 1527 Albuterol Sulfate 3 ML EVERY 4 HRS/AWAKE 06/26 1234 AC 06/29 INH 0756 Ampicillin Sodium/ 3,000 MG Q8H 06/23 1600 AC 06/29 Sulbactam Sodium IV 0833 Sodium Chloride 100 ML Atorvastatin Calcium 40 MG 1700 06/15 1700 AC 06/28 PO 1722 Calcium Carbonate 500 MG DAILY 06/21 1000 AC 06/29 PO 0833 Docusate Sodium 100 MG BID 06/12 2359 06/28 PO 0853 Hydromorphone HCl 2 MG Q4P PRN 06/27 1115 AC 06/29 IV 0212 Hydromorphone HCl 1.2 MG Q4-6 PRN PRN 06/24 1100 AC 06/27 IV 0522 Insulin Aspart 0 TIDAC/HS 06/24 1200 AC 06/29 SC 0834 Insulin Detemir 25 UNITS BID 06/28 2200 06/29 SC 0833 Lidocaine 1 PAT DAILY@1700 06/20 1700 06/27 EXT 1644 Lorazepam 1 MG ONCE ONE 06/29 0915 DC 06/29 IV 06/29 0916 0908 Melatonin 5 MG AT BEDTIME 06/21 2200 06/28 PO 2156 Nitroglycerin 0.5 GM Q6P PRN 06/15 1830 TOP Oxycodone HCl 40 MG Q12 06/25 2200 AC 06/29 PO 0833 Oxycodone HCl 10 MG Q4P PRN 06/23 1730 AC 06/25 PO 0944 Oxycodone HCl 20 MG Q4P PRN 06/23 1730 AC 06/27 PO 0257 Pregabalin 75 MG BID 06/13 2200 06/29 PO 0833 Senna/Docusate Sodium 1 TAB BID 06/27 1145 AC 06/28 PO 0853 Sodium Chloride 2 SPRAY Q4P PRN 06/27 0015 AC 06/27 TREY 0209 Tiotropium [place] 1 PUF DAILY 06/14 1000 AC 06/28 INH 0853 Results Pertinent Lab Results: Laboratory Tests 06/29 06/28 0430 2130 Chemistry Sodium (137 - 145 mmol/L) 141 Potassium (3.5 - 5.1 mmol/L) 4.4 Chloride (98 - 107 mmol/L) 107 Carbon Dioxide (22 - 30 mmol/L) 21 L Anion Gap (5 - 16) 13 BUN (7 - 17 mg/dL) 75 H Creatinine (0.5 - 1.0 mg/dL) 3.1 H Estimated GFR (>60 ml/min) 15 L Glucose (65 - 99 mg/dL) 197 H Calcium (8.4 - 10.2 mg/dL) 8.2 L Phosphorus (2.5 - 4.5 mg/dL) 5.4 H Magnesium (1.6 - 2.3 mg/dL) 1.7 Total Bilirubin (0.2 - 1.3 mg/dL) 0.3 AST (14 - 36 U/L) 18 ALT (9 - 52 U/L) 34 Albumin (3.5 - 5.0 g/dL) 2.2 L Hematology CBC w Diff NO MAN DIFF REQ NO MAN DIFF REQ WBC (4.8 - 10.8 /CUMM) 13.1 H 13.0 H RBC (4.20 - 5.40 /CUMM) 2.03 L 2.34 L Hgb (12.0 - 16.0 G/DL) 6.1 *L 7.0 *L Hct (37 - 47 %) 18.4 *L 21.3 L MCV (81.0 - 99.0 FL) 90.5 91.0 MCH (27.0 - 31.0 PG) 30.2 29.7 RDW (11.5 - 14.5 %) 17.7 H 18.1 H Plt Count (130 - 400 /CUMM) 310 352 MPV (7.4 - 10.4 FL) 6.9 L 6.9 L Gran % (42.2 - 75.2 %) 82.1 H 80.4 H Lymphocytes % (20.5 - 51.1 %) 10.2 L 11.4 L Monocytes % (1.7 - 9.3 %) 4.4 4.2 Eosinophils % (0 - 5 %) 2.7 3.3 Basophils % (0.0 - 2.0 %) 0.6 0.7 Absolute Granulocytes (1.4 - 6.5 /CUMM) 10.8 H 10.4 H Absolute Lymphocytes (1.2 - 3.4 /CUMM) 1.3 1.5 Absolute Monocytes (0.10 - 0.60 /CUMM) 0.6 0.6 Absolute Eosinophils (0.0 - 0.7 /CUMM) 0.3 0.4 Absolute Basophils (0.0 - 0.2 /CUMM) 0.1 0.1 PUBS MCHC (33.0 - 37.0 G/DL) 33.3 32.7 L 06/28 06/28 1420 1230 Hematology CBC w Diff NO MAN DIFF REQ WBC (4.8 - 10.8 /CUMM) 11.3 H RBC (4.20 - 5.40 /CUMM) 2.15 L Hgb (12.0 - 16.0 G/DL) 6.5 *L Hct (37 - 47 %) 19.3 *L MCV (81.0 - 99.0 FL) 89.7 MCH (27.0 - 31.0 PG) 30.1 RDW (11.5 - 14.5 %) 18.6 H Plt Count (130 - 400 /CUMM) 345 MPV (7.4 - 10.4 FL) 6.6 L Gran % (42.2 - 75.2 %) 80.5 H Lymphocytes % (20.5 - 51.1 %) 12.4 L Monocytes % (1.7 - 9.3 %) 4.3 Eosinophils % (0 - 5 %) 2.2 Basophils % (0.0 - 2.0 %) 0.6 Absolute Granulocytes (1.4 - 6.5 /CUMM) 9.1 H Absolute Lymphocytes (1.2 - 3.4 /CUMM) 1.4 Absolute Monocytes (0.10 - 0.60 /CUMM) 0.5 Absolute Eosinophils (0.0 - 0.7 /CUMM) 0.2 Absolute Basophils (0.0 - 0.2 /CUMM) 0.1 PUBS MCHC (33.0 - 37.0 G/DL) 33.6 Urines Urinalysis LIGHT H Urine Color (YEL,AMB,STR) YEL Urine Clarity (CLEAR) HAZY H Urine pH (5.0 - 8.0) 6.0 Ur Specific [place] (1.001 - 1.035) 1.020 Urine Protein (NEG,<30 MG/DL) 100 H Urine Ketones (NEG) NEG Urine Nitrite (NEG) NEG Urine Bilirubin (NEG) NEG Urine Urobilinogen (0.1 - 1.0 EU/dl) 0.2 Ur Leukocyte Esterase (NEG) MOD H Ur Microscopic SEDIMENT EXAMINED Urine RBC (0 - 5 /HPF) 1-3 Urine WBC (0 - 2 /HPF) 25-50 H Ur Epithelial Cells (NONE,FEW) MOD H Urine Bacteria (NEG/NONE) FEW H Urine Mucus (FEW,NONE) FEW Micro UA Comment BUDDING YEAST H Urine Hemoglobin (NEG) SMALL H Urine Glucose (N MG/DL) 250 H 06/28 06/27 0400 2027 Chemistry Sodium (137 - 145 mmol/L) 139 Potassium (3.5 - 5.1 mmol/L) 4.4 Chloride (98 - 107 mmol/L) 108 H Carbon Dioxide (22 - 30 mmol/L) 21 L Anion Gap (5 - 16) 10 BUN (7 - 17 mg/dL) 60 H Creatinine (0.5 - 1.0 mg/dL) 3.3 H Estimated GFR (>60 ml/min) 14 L BUN/Creatinine Ratio (7 - 25 %) 18.2 Phosphorus (2.5 - 4.5 mg/dL) 5.2 H Magnesium (1.6 - 2.3 mg/dL) 1.7 Hematology CBC w Diff NO MAN DIFF REQ NO MAN DIFF REQ WBC (4.8 - 10.8 /CUMM) 11.9 H 11.7 H RBC (4.20 - 5.40 /CUMM) 1.99 L 1.93 L Hgb (12.0 - 16.0 G/DL) 6.2 *L 6.1 *L Hct (37 - 47 %) 18.5 *L 18.0 *L MCV (81.0 - 99.0 FL) 93.1 93.7 MCH (27.0 - 31.0 PG) 31.3 H 31.7 H RDW (11.5 - 14.5 %) 16.9 H 17.4 H Plt Count (130 - 400 /CUMM) 369 357 MPV (7.4 - 10.4 FL) 7.1 L 6.9 L Gran % (42.2 - 75.2 %) 83.0 H 82.3 H Lymphocytes % (20.5 - 51.1 %) 8.5 L 9.2 L Monocytes % (1.7 - 9.3 %) 4.5 4.8 Eosinophils % (0 - 5 %) 3.6 3.2 Basophils % (0.0 - 2.0 %) 0.4 0.5 Absolute Granulocytes (1.4 - 6.5 /CUMM) 9.9 H 9.6 H Absolute Lymphocytes (1.2 - 3.4 /CUMM) 1.0 L 1.1 L Absolute Monocytes (0.10 - 0.60 /CUMM) 0.5 0.6 Absolute Eosinophils (0.0 - 0.7 /CUMM) 0.4 0.4 Absolute Basophils (0.0 - 0.2 /CUMM) 0.1 0.1 PUBS MCHC (33.0 - 37.0 G/DL) 33.6 33.8 06/27 0500 Chemistry Sodium (137 - 145 mmol/L) 138 Potassium (3.5 - 5.1 mmol/L) 4.2 Chloride (98 - 107 mmol/L) 103 Carbon Dioxide (22 - 30 mmol/L) 23 Anion Gap (5 - 16) 12 BUN (7 - 17 mg/dL) 52 H Creatinine (0.5 - 1.0 mg/dL) 3.3 H Estimated GFR (>60 ml/min) 14 L Glucose (65 - 99 mg/dL) 190 H Calcium (8.4 - 10.2 mg/dL) 8.5 Phosphorus (2.5 - 4.5 mg/dL) 5.8 H Magnesium (1.6 - 2.3 mg/dL) 1.8 Total Bilirubin (0.2 - 1.3 mg/dL) 0.3 AST (14 - 36 U/L) 15 ALT (9 - 52 U/L) 25 Albumin (3.5 - 5.0 g/dL) 2.5 L Hematology CBC w Diff MAN DIFF ORDERED WBC (4.8 - 10.8 /CUMM) 14.4 H RBC (4.20 - 5.40 /CUMM) 2.31 L Hgb (12.0 - 16.0 G/DL) 7.3 *L Hct (37 - 47 %) 21.8 L MCV (81.0 - 99.0 FL) 94.6 MCH (27.0 - 31.0 PG) 31.7 H RDW (11.5 - 14.5 %) 17.7 H Plt Count (130 - 400 /CUMM) 405 H MPV (7.4 - 10.4 FL) 7.2 L Gran % (42.2 - 75.2 %) 85.1 H Lymphocytes % (20.5 - 51.1 %) 8.4 L Monocytes % (1.7 - 9.3 %) 3.4 Eosinophils % (0 - 5 %) 2.7 Basophils % (0.0 - 2.0 %) 0.4 Absolute Granulocytes (1.4 - 6.5 /CUMM) 12.2 H Segmented Neutrophils (42.2 - 75.2 %) 79 H Band Neutrophils (0.0 - 5.0 %) 1 Absolute Lymphocytes (1.2 - 3.4 /CUMM) 1.2 Lymphocytes (20.5 - 51.1 %) 8 L Monocytes (1.7 - 9.3 %) 7 Absolute Monocytes (0.10 - 0.60 /CUMM) 0.5 Eosinophils (0 - 5.0 %) 5 Absolute Eosinophils (0.0 - 0.7 /CUMM) 0.4 Absolute Basophils (0.0 - 0.2 /CUMM) 0.1 Platelet Estimate (ADEQUATE) INCREASED Polychromasia 1+ Basophilic Stippling SLIGHT Ovalocytes FEW PUBS MCHC (33.0 - 37.0 G/DL) 33.5 Other Body Source Fld Total RBCs Counted (%) 100
--- NOTE | 2017-06-29 10:57 | CT SCAN REPORT ---
EXAMINATION: CT CHEST WITHOUT CONTRAST CT ABDOMEN AND PELVIS WITHOUT CONTRAST CLINICAL INFORMATION: Drop in hematocrit. Question hematoma, question bleed COMPARISON: CT chest 06/20/2017 TECHNIQUE: Multidetector volumetric CT imaging of the chest, abdomen and pelvis was obtained. Sagittal and coronal reformatted images were obtained on the technologist workstation. DLP: 1891 mGy-cm FINDINGS: LUNGS: A right pleural effusion has decreased in size compared to the CT of 06/20/2017. Chest tubes in place terminating within the posterior medial right lung base. There are small locules of air within the small to moderate residual pleural fluid collection. Gas is noted along the anterior aspect of the right upper lobe as well as posteriorly adjacent to the chest tube. There is associated compressive atelectasis of the right lung without significant consolidation. There is mosaic ventilation bilaterally. No consolidation evident within the left lung. No left pleural effusion. MEDIASTINUM: There is evidence of underlying anemia. There is no significant pleural effusion. Mild coronary artery calcification. Mediastinal lymph nodes measure up to 0.7 cm in short axis diameter. PLEURA: See above. AXILLA: No lymphadenopathy. LIVER, GALLBLADDER, AND BILIARY TREE: The liver is normal in size, shape, and attenuation. No focal hepatic lesion or biliary ductal dilatation is present. The gallbladder is surgically absent. PANCREAS: Unremarkable. SPLEEN: Unremarkable. ADRENAL GLANDS: Unremarkable. KIDNEYS AND URETERS: The left kidney is relatively atrophic compared to the right. There is no hydronephrosis. There is bilateral perinephric stranding, mild. BLADDER: Unremarkable. GASTROINTESTINAL TRACT: The small and large bowel are unremarkable. The appendix is unremarkable. ABDOMINAL WALL: Diffuse subcutaneous edema anteriorly. LYMPH NODES: Normal. VASCULAR: In infrarenal IVC filter is in place. PELVIC VISCERA: Unremarkable. OSSEOUS STRUCTURES: Diffuse degenerative disease involving the thoracic and lumbar spine. Grade 1 retrolisthesis at L4-L5 level, redemonstrated. IMPRESSION: 1. Limited noncontrast study. The [id number] is also limited. The lateral aspects of the patient's body are excluded from the field of view secondary to the large body habitus. In addition, there is significant artifact related to the patient's arms which are at their sides. 2. No definite evidence for an intrathoracic, abdominal or pelvic hematoma. An active arterial bleed cannot be assessed on this noncontrast study. 3. Decrease in size of a right-sided hydropneumothorax compared to the prior chest CT. A chest tube in position.
--- NOTE | 2017-06-29 11:25 | PN- Infect Dx ---
Subjective Subjective: Afebrile. She continues to complain of pain at the site of the right chest tube. She apparently had one guaiac positive stool. She denies any dysuria. Objective Last 24 Hrs of Vital Signs/I&O Vital Signs Date Time Temp Pulse Resp B/P B/P Pulse O2 O2 Flow FiO2 Mean Ox Delivery Rate 06/29 800 97 Nasal 2.0L Cannula 06/29 799 Nasal 2.0L Cannula 06/29 799 97.2 58 20 112/50 96 Nasal 2.0L Cannula 06/29 0600 60 20 134/74 98 Nasal 2.0L Cannula 06/29 0400 63 20 121/50 Nasal 2.0L Cannula 06/29 0200 64 20 154/65 99 Nasal 2.0L Cannula 06/29 0000 65 20 137/55 06/29 0000 99 Nasal 2.0L Cannula 06/28 2200 97.2 67 20 157/68 93 Nasal 2.0L Cannula 06/28 2105 96 Nasal 2.0L Cannula 06/28 1999 96.9 68 18 130/50 93 Nasal 2.0L Cannula 06/28 1600 Nasal 2.0L Cannula 06/28 1600 97.5 70 20 120/58 97 Nasal 2.0L Cannula Intake & Output 06/29 1600 06/29 0800 06/29 0000 Intake Total 708 973 9266 Output Total 250 385 5499 Balance -170 -467 280 Intake, Blood 370 Product Intake, IV 130 130 Intake, Oral 500 780 Number 1 4 Bowel Movements Output, Chest 17 Tube Drainage Output, Urine 257 559 7049 Patient 246 lb Weight Physical Exam Other Physical Findings: She appears comfortable in no acute distress Lungs clear anteriorly; right chest tube in place with 43 mL output yesterday and 17 mL overnight Heart regular rhythm with no murmur Extremities chronic venous stasis changes to the right lower extremity Results Last 24 Hours of Lab Results: Laboratory Tests 06/29 06/28 0430 2130 Chemistry Sodium (137 - 145 mmol/L) 141 Potassium (3.5 - 5.1 mmol/L) 4.4 Chloride (98 - 107 mmol/L) 107 Carbon Dioxide (22 - 30 mmol/L) 21 L Anion Gap (5 - 16) 13 BUN (7 - 17 mg/dL) 75 H Creatinine (0.5 - 1.0 mg/dL) 3.1 H Estimated GFR (>60 ml/min) 15 L Glucose (65 - 99 mg/dL) 197 H Calcium (8.4 - 10.2 mg/dL) 8.2 L Phosphorus (2.5 - 4.5 mg/dL) 5.4 H Magnesium (1.6 - 2.3 mg/dL) 1.7 Total Bilirubin (0.2 - 1.3 mg/dL) 0.3 AST (14 - 36 U/L) 18 ALT (9 - 52 U/L) 34 Albumin (3.5 - 5.0 g/dL) 2.2 L Hematology CBC w Diff NO MAN DIFF REQ NO MAN DIFF REQ WBC (4.8 - 10.8 /CUMM) 13.1 H 13.0 H RBC (4.20 - 5.40 /CUMM) 2.03 L 2.34 L Hgb (12.0 - 16.0 G/DL) 6.1 *L 7.0 *L Hct (37 - 47 %) 18.4 *L 21.3 L MCV (81.0 - 99.0 FL) 90.5 91.0 MCH (27.0 - 31.0 PG) 30.2 29.7 RDW (11.5 - 14.5 %) 17.7 H 18.1 H Plt Count (130 - 400 /CUMM) 310 352 MPV (7.4 - 10.4 FL) 6.9 L 6.9 L Gran % (42.2 - 75.2 %) 82.1 H 80.4 H Lymphocytes % (20.5 - 51.1 %) 10.2 L 11.4 L Monocytes % (1.7 - 9.3 %) 4.4 4.2 Eosinophils % (0 - 5 %) 2.7 3.3 Basophils % (0.0 - 2.0 %) 0.6 0.7 Absolute Granulocytes (1.4 - 6.5 /CUMM) 10.8 H 10.4 H Absolute Lymphocytes (1.2 - 3.4 /CUMM) 1.3 1.5 Absolute Monocytes (0.10 - 0.60 /CUMM) 0.6 0.6 Absolute Eosinophils (0.0 - 0.7 /CUMM) 0.3 0.4 Absolute Basophils (0.0 - 0.2 /CUMM) 0.1 0.1 PUBS MCHC (33.0 - 37.0 G/DL) 33.3 32.7 L 06/28 06/28 1420 1230 Hematology CBC w Diff NO MAN DIFF REQ WBC (4.8 - 10.8 /CUMM) 11.3 H RBC (4.20 - 5.40 /CUMM) 2.15 L Hgb (12.0 - 16.0 G/DL) 6.5 *L Hct (37 - 47 %) 19.3 *L MCV (81.0 - 99.0 FL) 89.7 MCH (27.0 - 31.0 PG) 30.1 RDW (11.5 - 14.5 %) 18.6 H Plt Count (130 - 400 /CUMM) 345 MPV (7.4 - 10.4 FL) 6.6 L Gran % (42.2 - 75.2 %) 80.5 H Lymphocytes % (20.5 - 51.1 %) 12.4 L Monocytes % (1.7 - 9.3 %) 4.3 Eosinophils % (0 - 5 %) 2.2 Basophils % (0.0 - 2.0 %) 0.6 Absolute Granulocytes (1.4 - 6.5 /CUMM) 9.1 H Absolute Lymphocytes (1.2 - 3.4 /CUMM) 1.4 Absolute Monocytes (0.10 - 0.60 /CUMM) 0.5 Absolute Eosinophils (0.0 - 0.7 /CUMM) 0.2 Absolute Basophils (0.0 - 0.2 /CUMM) 0.1 PUBS MCHC (33.0 - 37.0 G/DL) 33.6 Urines Urinalysis LIGHT H Urine Color (YEL,AMB,STR) YEL Urine Clarity (CLEAR) HAZY H Urine pH (5.0 - 8.0) 6.0 Ur Specific Mather (1.001 - 1.035) 1.020 Urine Protein (NEG,<30 MG/DL) 100 H Urine Ketones (NEG) NEG Urine Nitrite (NEG) NEG Urine Bilirubin (NEG) NEG Urine Urobilinogen (0.1 - 1.0 EU/dl) 0.2 Ur Leukocyte Esterase (NEG) MOD H Ur Microscopic SEDIMENT EXAMINED Urine RBC (0 - 5 /HPF) 1-3 Urine WBC (0 - 2 /HPF) 25-50 H Ur Epithelial Cells (NONE,FEW) MOD H Urine Bacteria (NEG/NONE) FEW H Urine Mucus (FEW,NONE) FEW Micro UA Comment BUDDING YEAST H Urine Hemoglobin (NEG) SMALL H Urine Glucose (N MG/DL) 250 H Last 24 Hours of Drew Results: Urine culture June 28 negative Recent Imaging Studies: Chest x-ray June 29 reveals persistent consolidation of the right middle lobe and right lower lobe with a loculated right pleural effusion CT of the chest, abdomen and pelvis June 29 reveals a decrease in the size of the right pleural effusion, with the chest tube terminating within the posterior medial right lung base, with small locules of air within the small to moderate residual pleural effusion and with gas noted along the anterior aspect of the right upper lobe and posteriorly adjacent to the chest tube; associated compressive atelectasis of the right lung; no evidence of hematoma Assessment/Plan Impression: Overall improvement, with temperatures remaining normal but with a mild persistent leukocytosis, now 6 days status post right thoracotomy with drainage of an empyema and decortication of the right lower lobe, with a repeat CT of the chest today revealing decrease in size of the right hydropneumothorax. She remains on Unasyn for Haemophilus influenzae, which was isolated from her initial blood cultures. The source of her anemia is unclear with one guaiac positive stool reported, and with the CT of the abdomen and pelvis negative for any obvious focus. Suggestion: 1. Further evaluation and management of her severe anemia per Medicine 2. Further management of her right chest tube and hydropneumothorax per Thoracic surgery 3. Continue Unasyn
--- NOTE | 2017-06-29 12:16 | PN- Thoracic Surgery ---
Surgical Brief Attending Note Brief Attending Note: Expected changes seen on ct. Will leave tubes another day. Fluid cultures negative
[2017-06-29 14:26] LABS: ABSOLUTE BASOPHIL COUNT 0.1 /CUMM (0.0-0.2); ABSOLUTE LYMPH COUNT 1.2 /CUMM (1.2-3.4); ABSOLUTE MONOCYTE COUNT 0.5 /CUMM (0.10-0.60); BASOPHIL % 0.5 % (0.0-2.0)
[2017-06-29 14:30] LABS: ABSOLUTE EOSINOPHIL COUNT 0.2 /CUMM (0.0-0.7); ABSOLUTE GRANULOCYTE CT 9.5 /CUMM (1.4-6.5); EOSINOPHIL % 2.1 % (0-5); GRANULOCYTE % 82.3 % (42.2-75.2); MEAN CORPUSCULAR HGB 30.4 PG (27.0-31.0); MEAN CORPUSCULAR HGB CONC 33.7 G/DL (33.0-37.0); MEAN CORPUSCULAR VOLUME 90.1 FL (81.0-99.0); MEAN PLATELET VOLUME 6.7 FL (7.4-10.4); PLATELET COUNT 267 /CUMM (130-400); RBC DISTRIBUTION WIDTH 16.4 % (11.5-14.5); RED BLOOD CELL CT 2.07 /CUMM (4.20-5.40); WHITE BLOOD CELL COUNT 11.5 /CUMM (4.8-10.8)
[2017-06-29 14:37] LABS: HEMATOCRIT 18.6 % (37-47)
--- NOTE | 2017-06-29 20:33 | Cons- Gastroenterology ---
See Addendum General Information and HPI Consulting Request Date of Consult: 06/29/17 Requested By: Wallace Hays MD Reason for Consult: I was called earlier today by the ICU to assess multifactorial anemia & OB+ stool. Extensive records reviewed, HD #[id number]. 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 She also had some symptoms of UTI. On admission, WBC 47K (93S/5B) BUN/Cr 65/3.7, GFR 12, Na 134, K 3.0, HCO3 20, AG 18, nl lactate 1.6, TBil 0.4, alk phos 243, AST/ALT 42/ 52, albumin 2.9, globulin 3.9, troponin 0.23, proBNP 2520, INR 1.33, ABG 7.26/ 40/77 on 6L. U/A: >75 WBCs. Chest x-ray- opacity in the right hemithorax. Doppler of the right lower extremity was negative for DVT, but revealed a thrombus within the greater saphenous vein of the proximal thigh, extending to the saphenofemoral junction. The patient has been on numerous antibiotics and steroids here. She was seen by numerous consultants, including medicine, cardiology, endocrine, thoracic surgery, pulmonary, ID, & renal. She was found to have an empyema with complicated effusion with hemorrhagic fluid (06/13/17: 26,800 RBC, 12,750 WBC with 95% PMN), & underwent 06/23/17: right thoracotomy with drainage of empyema and decortication of RLL. 1400 mL of serosanguineous fluid was drained from the thoracic cavity with placement of 2 chest tubes. Additionally, she had a ? PE, with indeterminate 06/16/17: VQ scan. The patient was placed on Unasyn for H. influenza, as she had positive blood cultures. She received numerous transfusions of PRBC. Again, she did have serosanguineous fluid coming out of the chest tube, but did have one stool positive for occult blood, prompting the GI consult. She was on aspirin 325 mg po daily from 06/25/17-06/28/17. There were no NSAIDS. I did not see any A/C therapy in the computer. *She had received a total of 8u PRBC from 06/23/17-02/06. There have been no coags sent since 06/12/17. The patient denied any vaginal spotting or gross hematuria. She did have intermittent hemoptysis and coughed up some blood while I was in the room during the 06/29/17: GI consult. She was very nervous. She denied any GERD, odynophagia, dysphagia, or definite early satiety, although she was somewhat unsure, regarding the latter. She denied any abdominal pain, hematemesis, or melena. She denied any diarrhea, constipation, obstipation, tenesmus, or rectal bleeding. She never had an EGD or colonoscopy. There is no family history of GI CA, GI disease, or inherited liver disease. She tolerated solids po today. She currently denied any fevers, chills, jaundice, or significant weight loss. 06/12/17: PT 13.9, INR 1.33, PTT 71 06/12/17: troponin 0.23-> 0.25-> 0.18 06/28/17: U/A- pyuria, without gross hematuria. 06/29/17: WBC 11.5, H/H 6.3/18.6 (*prior to 7th u PRBC), MCV 90.1, RDW 16.4, PLT 267, glucose 197, BUN/Cr 75/3.1, GFR 15, Na 141, K 4.4, HCO3 21, AG 13, Mg 1.7, Ca 8.2, PO4 5.4, alb 2.2, TBil 0.3, AST 18, ALT 34 06/23/17: EKG- NSR @ 83, RBBB, LAHB, multiple APC, LVH, PRWP (without change from prior EKG) Please see Anystream for numerous imaging studies obtained from -06/29/17. 06/29/17: CT ABD & PELVIS W/O IV CONTRAST; CT CHEST WO IV CONTRAST- 1. *Limited noncontrast study. The [id number]-vp-edpb is also limited. The lateral aspects of the patient's body are excluded from the field of view secondary to the large body habitus. In addition, there is significant artifact related to the patient's arms which are at their sides. 2. No definite evidence for an intrathoracic, abdominal or pelvic hematoma. *An active arterial bleed cannot be assessed on this noncontrast study. 3. Decrease in size of a right-sided hydropneumothorax compared to the prior chest CT. A chest tube in position. 06/29/17: XRY-PORTABLE CHEST XRAY- Persistent consolidation of right middle and right lower lobes and unchanged appearance of the loculated right pleural effusion with thoracostomy tube in place. Allergies/Medications Allergies: Coded Allergies: NO KNOWN ALLERGIES (NONE 06/26/17) Home Med List: Alprazolam 0.25 MG TABLET 1 TAB PO BIDP PRN ANXIETY (Reported) Aspirin (Ecotrin*) 325 MG TABLET.DR 2 TAB PO DAILY HEART/BLOOD (Reported) Citalopram Hydrobromide (Citalopram HBr) 20 MG TABLET 1 TAB PO DAILY MENTAL HEALTH (Reported) Cyanocobalamin (Vitamin B-12) (B-12) 1,000 MCG TABLET 1 TAB PO DAILY SUPPLEMENT (Reported) Docusate Sodium (Colace) 100 MG CAPSULE 1 CAP PO BID STOOL SOFTENER (Reported ) Ergocalciferol (Vitamin D2) (Vitamin D2) 50,000 UNIT CAPSULE 1 CAP PO Q2W SUPPLEMENT (Reported) Furosemide 40 MG TABLET 40 MG PO DAILY DIURETIC (Reported) Insulin Aspart, Recombinant (Novolog Flexpen) 100 UNIT/ML INSULN.PEN DM ( Reported) Insulin Detemir (Levemir) 100 UNIT/ML VIAL 40 UNITS SC QAM DM (Reported) Insulin Detemir (Levemir) 100 UNIT/ML VIAL 60 UNITS SC QPM DM (Reported) Linagliptin (Tradjenta) 5 MG TABLET 1 TAB PO DAILY DM (Reported) Oxycodone HCl (Oxycontin) 80 MG TAB.ER.12H 1 TAB PO TID PRN PAIN (Reported) Pregabalin (Lyrica) 150 MG CAPSULE 1 CAP PO DAILY NERVE PAIN (Reported) Tiotropium [place] (Spiriva) 18 MCG CAP.W.DEV 1 CAP INH DAILY COPD (Reported) Current Medications: Current Medications Sig/Suleman Start time Last Medication Dose Route Stop Time Status Admin Acetaminophen 1,000 MG Q6P PRN 06/19 1130 AC 06/25 N/A 1 UNIT IV 1527 Albuterol Sulfate 3 ML EVERY 4 HRS/AWAKE 06/26 1234 AC 06/29 INH 2010 Ampicillin Sodium/ 3,000 MG Q8H 06/23 1600 AC 06/29 Sulbactam Sodium IV 1735 Sodium Chloride 100 ML Atorvastatin Calcium 40 MG 1700 06/15 1700 AC 06/29 PO 1651 Calcium Carbonate 500 MG DAILY 06/21 1000 AC 06/29 PO 0833 Docusate Sodium 100 MG BID 06/12 2359 AC 06/28 PO 0853 Hydromorphone HCl 2 MG Q4P PRN 06/27 1115 AC 06/29 IV 1740 Hydromorphone HCl 1.2 MG Q4-6 PRN PRN 06/24 1100 AC 06/27 IV 0522 Insulin Aspart 0 TIDAC/HS 06/24 1200 AC 06/29 SC 1651 Insulin Detemir 25 UNITS BID 06/28 2200 06/29 SC 2112 Lidocaine 1 PAT DAILY@1700 06/20 1700 AC 06/27 EXT 1644 Lorazepam 1 MG ONCE ONE 06/29 0815 DC 06/29 IV 06/29 0916 0908 Melatonin 5 MG AT BEDTIME 06/21 2200 AC 06/29 PO 2112 Nitroglycerin 0.5 GM Q6P PRN 06/15 1830 AC TOP Oxycodone HCl 40 MG Q12 06/25 2200 AC 06/29 PO 2113 Oxycodone HCl 10 MG Q4P PRN 06/23 1730 AC 06/25 PO 0944 Oxycodone HCl 20 MG Q4P PRN 06/23 1730 AC 06/27 PO 0257 Pregabalin 75 MG BID 06/13 2200 AC 06/29 PO 2113 Senna/Docusate Sodium 1 TAB BID 06/27 1145 06/28 PO 0853 Sodium Chloride 2 SPRAY Q4P PRN 06/27 0015 AC 06/27 TREY 0209 Tiotropium [place] 1 PUF DAILY 06/14 1000 06/29 INH 1204 Past History Travel History Traveled to [place] past 21 day No Medical History Blood Transfusion Hx: Yes Neurological: peripheral neuropathy EENT: NONE Cardiovascular: hypertension, hyperlipidemia, PVD Respiratory: COPD Gastrointestinal: NONE Hepatic: NONE Renal: chronic kidney disease Musculoskeletal: Left BKA Amput 1st & 3rd toes on right Psychiatric: anxiety, depression Endocrine: diabetes, obesity Blood Disorders: DVT (left leg) Cancer(s): UTERINE CANCER- TAHBSO at [facility] & RT/CTX 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 FH: breast cancer FATHER (smoker). , Age 54; Cause: Throat cancer. Psychosocial History Where Do You Live? Home Who Do You Live With? spouse (dtr), child Services at Home: Nursing Primary Language: Pashto Smoking Status: Current Everyday Smoker ETOH Use: denies use Illicit Drug Use: denies illicit drug use Living Will? 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 2 children (1 son & 1 dtr)- [employer]. 40 pk yr cigarette smoker, up until admission. No EtOH or illicit drugs. Disabled. Lives with dtr. Uses LLE prosthetic & rolling walker. Functional Ability ADLs Independent: dressing, eating. Needs Assist: toileting, bathing. Ambulation: cane, walker (rolling) IADLs Independent: telephone. Needs Assist: shopping, housework, finances, food prep, transportation, medication admin. Employment History Employment: Disability ECHO Results (as available) Date of last Echo 06/17/17 EF% 70 Review of Systems Review of Systems: Full 14 point review of systems otherwise noncontributory, and as above. Review of Systems Constitutional: Reports: malaise. Denies: chills, diaphoresis, fever, weakness, unexplained weight loss. EENTM: Denies: blurred vision, double vision, visual changes, eye pain, eye drainage, eye tearing, icterus, ear discharge, ear pain, ear redness, hearing changes, nasal congestion, epistaxis, nasal pain, throat pain, throat swelling, mouth pain, tooth pain. Cardiovascular: Reports: peripheral edema (trace). Denies: chest pain, edema, orthopena, palpitations, syncope. Respiratory: Reports: cough, hemoptysis. Denies: orthopnea, short of breath, sputum production, stridor, wheezing. GI: Denies: abdominal pain, bloating, constipation, diarrhea, distention, bowel incontinence, melena, nausea, bloody stool, changes in stool, vomiting, steatorrhea. Genitourinary: Denies: discharge, dysuria, frequency, hematuria, hesitation, nocturia, pain, urgency. Musculoskeletal: Denies: back pain, gout, joint pain, joint swelling, muscle pain, muscle stiffness, neck pain. Skin: Denies: cysts, change in skin color, change in hair/nails, dryness, erythema, jaundice, lesions, lymphangitis, lumps, moles, rash. Neurological/Psychological: Reports: anxiety, depressed, paresthesia (hx neuropathy). Denies: ataxia, cognitive dysfunction, confusion, dementia, emotional problems, headache, numbness, pre-existing deficit, petit mal seizures, tingling, tremors, tonic- clonic seizures, unable to move lower ext, unable to move upper ext, weakness. Hematologic/Endocrine: Denies: bruising, bleeding, polyuria, polydipsia. Immunologic/Allergic: Denies: splenectomy, HIV/AIDS, lymphadenopathy. All Other Systems: Reviewed and Negative Exam & Diagnostic Data Vital Signs and I&O Vital Signs Date Time Temp Pulse Resp B/P B/P Pulse O2 O2 Flow FiO2 Mean Ox Delivery Rate 06/29 2013 98 Nasal 2.0L Cannula 06/29 1600 Nasal 2.0L Cannula 06/29 1600 96.9 70 20 142/62 97 Nasal 2.0L Cannula 06/29 0801 97 Nasal 2.0L Cannula 06/29 08 Nasal 2.0L Cannula 06/29 08 97.2 58 20 112/50 96 Nasal 2.0L Cannula 06/29 0600 60 20 134/74 98 Nasal 2.0L Cannula 06/29 0400 63 20 121/50 Nasal 2.0L Cannula 06/29 0200 64 20 154/65 99 Nasal 2.0L Cannula 06/29 0000 65 20 137/55 06/29 0000 99 Nasal 2.0L Cannula Intake & Output 06/29 1600 06/29 0400 06/28 04006/27 040 Intake Total 1930 1280 2108 660 2215 1980 Output Total 1867 1000 1943 560 200 Balance 63 280 686 857 3841 1780 Intake, Blood 340 370 389 Product Intake, IV 130 130 641 518 5647 280 Intake, Oral 9744 888 5652 835 324 7082 Number 4 4 0 0 Bowel Movements Output, Chest 17 43 60 Tube Drainage Output, Urine 1850 1000 1900 500 200 Patient 246 lb 215 lb 232 lb Weight Weight Bed scale Measurement Method Physical Exam: Well-developed, somewaht malnourished, chronically ill-appearing obese female, anxious, in no apparent distress. Sclera anicteric. Conjunctiva slightly pale. Oropharynx clear. No oral thrush. No aphthous ulcers. Edentulous. There is no adenopathy, thyromegaly, JVD, or HJR. No peripheral stigmata of inflammatory bowel disease or chronic liver disease on exam. No spiders on the anterior chest wall. Breast & pelvic exams: API. No CVA tenderness. No spine tenderness. Lungs: clear to A&P, with decreased BS at right base (chest tube on right) & slightly prolonged expiratory phase. No wheezing, rales, or rhonchi. Heart exam : regular rate rhythm, S1 and S2, without any murmur. Abdominal exam: normal bowel sounds, soft obese belly, nontender, without guarding or rebound. No definite mass or organomegaly. No fluid shift. No pulsatile mass. No epigastric bruit. Repeat digital rectal exam 06/29/17 deferred per patient (* brown OB+ stool API within the past 24 hrs). Extremities: without cyanosis or clubbing. Post left BKA with prosthetic LLE. RLE with stasis dermatitis changes & trace edema, post amputation of right 1st & 3rd toes. No palpable cords. DJD. No palmar erythema. No Dupuytren's contractures. Distal pulses 1+ bilaterally. DTRs 2+ bilaterally. Alert and oriented x 3. Left handed. Motor 4 /5 B/L. No tremor. No asterixis. A detailed exam for peripheral neuropathy was deferred, but is present by history. Results Pertinent Lab Results: Laboratory Tests 06/29 06/29 1405 0430 Chemistry Sodium (137 - 145 mmol/L) 141 Potassium (3.5 - 5.1 mmol/L) 4.4 Chloride (98 - 107 mmol/L) 107 Carbon Dioxide (22 - 30 mmol/L) 21 L Anion Gap (5 - 16) 13 BUN (7 - 17 mg/dL) 75 H Creatinine (0.5 - 1.0 mg/dL) 3.1 H Estimated GFR (>60 ml/min) 15 L Glucose (65 - 99 mg/dL) 197 H Calcium (8.4 - 10.2 mg/dL) 8.2 L Phosphorus (2.5 - 4.5 mg/dL) 5.4 H Magnesium (1.6 - 2.3 mg/dL) 1.7 Total Bilirubin (0.2 - 1.3 mg/dL) 0.3 AST (14 - 36 U/L) 18 ALT (9 - 52 U/L) 34 Albumin (3.5 - 5.0 g/dL) 2.2 L Hematology CBC w Diff NO MAN DIFF REQ NO MAN DIFF REQ WBC (4.8 - 10.8 /CUMM) 11.5 H 13.1 H RBC (4.20 - 5.40 /CUMM) 2.07 L 2.03 L Hgb (12.0 - 16.0 G/DL) 6.3 *L 6.1 *L Hct (37 - 47 %) 18.6 *L 18.4 *L MCV (81.0 - 99.0 FL) 90.1 90.5 MCH (27.0 - 31.0 PG) 30.4 30.2 RDW (11.5 - 14.5 %) 16.4 H 17.7 H Plt Count (130 - 400 /CUMM) 267 310 MPV (7.4 - 10.4 FL) 6.7 L 6.9 L Gran % (42.2 - 75.2 %) 82.3 H 82.1 H Lymphocytes % (20.5 - 51.1 %) 10.5 L 10.2 L Monocytes % (1.7 - 9.3 %) 4.6 4.4 Eosinophils % (0 - 5 %) 2.1 2.7 Basophils % (0.0 - 2.0 %) 0.5 0.6 Absolute Granulocytes (1.4 - 6.5 /CUMM) 9.5 H 10.8 H Absolute Lymphocytes (1.2 - 3.4 /CUMM) 1.2 1.3 Absolute Monocytes (0.10 - 0.60 /CUMM) 0.5 0.6 Absolute Eosinophils (0.0 - 0.7 /CUMM) 0.2 0.3 Absolute Basophils (0.0 - 0.2 /CUMM) 0.1 0.1 PUBS MCHC (33.0 - 37.0 G/DL) 33.7 33.3 06/28 06/28 2130 1420 Hematology CBC w Diff NO MAN DIFF REQ NO MAN DIFF REQ WBC (4.8 - 10.8 /CUMM) 13.0 H 11.3 H RBC (4.20 - 5.40 /CUMM) 2.34 L 2.15 L Hgb (12.0 - 16.0 G/DL) 7.0 *L 6.5 *L Hct (37 - 47 %) 21.3 L 19.3 *L MCV (81.0 - 99.0 FL) 91.0 89.7 MCH (27.0 - 31.0 PG) 29.7 30.1 RDW (11.5 - 14.5 %) 18.1 H 18.6 H Plt Count (130 - 400 /CUMM) 352 345 MPV (7.4 - 10.4 FL) 6.9 L 6.6 L Gran % (42.2 - 75.2 %) 80.4 H 80.5 H Lymphocytes % (20.5 - 51.1 %) 11.4 L 12.4 L Monocytes % (1.7 - 9.3 %) 4.2 4.3 Eosinophils % (0 - 5 %) 3.3 2.2 Basophils % (0.0 - 2.0 %) 0.7 0.6 Absolute Granulocytes (1.4 - 6.5 /CUMM) 10.4 H 9.1 H Absolute Lymphocytes (1.2 - 3.4 /CUMM) 1.5 1.4 Absolute Monocytes (0.10 - 0.60 /CUMM) 0.6 0.5 Absolute Eosinophils (0.0 - 0.7 /CUMM) 0.4 0.2 Absolute Basophils (0.0 - 0.2 /CUMM) 0.1 0.1 PUBS MCHC (33.0 - 37.0 G/DL) 32.7 L 33.6 06/28 06/28 1230 0400 Chemistry Sodium (137 - 145 mmol/L) 139 Potassium (3.5 - 5.1 mmol/L) 4.4 Chloride (98 - 107 mmol/L) 108 H Carbon Dioxide (22 - 30 mmol/L) 21 L Anion Gap (5 - 16) 10 BUN (7 - 17 mg/dL) 60 H Creatinine (0.5 - 1.0 mg/dL) 3.3 H Estimated GFR (>60 ml/min) 14 L BUN/Creatinine Ratio (7 - 25 %) 18.2 Phosphorus (2.5 - 4.5 mg/dL) 5.2 H Magnesium (1.6 - 2.3 mg/dL) 1.7 Hematology CBC w Diff NO MAN DIFF REQ WBC (4.8 - 10.8 /CUMM) 11.9 H RBC (4.20 - 5.40 /CUMM) 1.99 L Hgb (12.0 - 16.0 G/DL) 6.2 *L Hct (37 - 47 %) 18.5 *L MCV (81.0 - 99.0 FL) 93.1 MCH (27.0 - 31.0 PG) 31.3 H RDW (11.5 - 14.5 %) 16.9 H Plt Count (130 - 400 /CUMM) 369 MPV (7.4 - 10.4 FL) 7.1 L Gran % (42.2 - 75.2 %) 83.0 H Lymphocytes % (20.5 - 51.1 %) 8.5 L Monocytes % (1.7 - 9.3 %) 4.5 Eosinophils % (0 - 5 %) 3.6 Basophils % (0.0 - 2.0 %) 0.4 Absolute Granulocytes (1.4 - 6.5 /CUMM) 9.9 H Absolute Lymphocytes (1.2 - 3.4 /CUMM) 1.0 L Absolute Monocytes (0.10 - 0.60 /CUMM) 0.5 Absolute Eosinophils (0.0 - 0.7 /CUMM) 0.4 Absolute Basophils (0.0 - 0.2 /CUMM) 0.1 PUBS MCHC (33.0 - 37.0 G/DL) 33.6 Urines Urinalysis LIGHT H Urine Color (YEL,AMB,STR) YEL Urine Clarity (CLEAR) HAZY H Urine pH (5.0 - 8.0) 6.0 Ur Specific [place] (1.001 - 1.035) 1.020 Urine Protein (NEG,<30 MG/DL) 100 H Urine Ketones (NEG) NEG Urine Nitrite (NEG) NEG Urine Bilirubin (NEG) NEG Urine Urobilinogen (0.1 - 1.0 EU/dl) 0.2 Ur Leukocyte Esterase (NEG) MOD H Ur Microscopic SEDIMENT EXAMINED Urine RBC (0 - 5 /HPF) 1-3 Urine WBC (0 - 2 /HPF) 25-50 H Ur Epithelial Cells (NONE,FEW) MOD H Urine Bacteria (NEG/NONE) FEW H Urine Mucus (FEW,NONE) FEW Micro UA Comment BUDDING YEAST H Urine Hemoglobin (NEG) SMALL H Urine Glucose (N MG/DL) 250 H 06/27 0500 Chemistry Sodium (137 - 145 mmol/L) 138 Potassium (3.5 - 5.1 mmol/L) 4.2 Chloride (98 - 107 mmol/L) 103 Carbon Dioxide (22 - 30 mmol/L) 23 Anion Gap (5 - 16) 12 BUN (7 - 17 mg/dL) 52 H Creatinine (0.5 - 1.0 mg/dL) 3.3 H Estimated GFR (>60 ml/min) 14 L Glucose (65 - 99 mg/dL) 190 H Calcium (8.4 - 10.2 mg/dL) 8.5 Phosphorus (2.5 - 4.5 mg/dL) 5.8 H Magnesium (1.6 - 2.3 mg/dL) 1.8 Total Bilirubin (0.2 - 1.3 mg/dL) 0.3 AST (14 - 36 U/L) 15 ALT (9 - 52 U/L) 25 Albumin (3.5 - 5.0 g/dL) 2.5 L Hematology CBC w Diff NO MAN DIFF REQ MAN DIFF ORDERED WBC (4.8 - 10.8 /CUMM) 11.7 H 14.4 H RBC (4.20 - 5.40 /CUMM) 1.93 L 2.31 L Hgb (12.0 - 16.0 G/DL) 6.1 *L 7.3 *L Hct (37 - 47 %) 18.0 *L 21.8 L MCV (81.0 - 99.0 FL) 93.7 94.6 MCH (27.0 - 31.0 PG) 31.7 H 31.7 H RDW (11.5 - 14.5 %) 17.4 H 17.7 H Plt Count (130 - 400 /CUMM) 357 405 H MPV (7.4 - 10.4 FL) 6.9 L 7.2 L Gran % (42.2 - 75.2 %) 82.3 H 85.1 H Lymphocytes % (20.5 - 51.1 %) 9.2 L 8.4 L Monocytes % (1.7 - 9.3 %) 4.8 3.4 Eosinophils % (0 - 5 %) 3.2 2.7 Basophils % (0.0 - 2.0 %) 0.5 0.4 Absolute Granulocytes (1.4 - 6.5 /CUMM) 9.6 H 12.2 H Segmented Neutrophils (42.2 - 75.2 %) 79 H Band Neutrophils (0.0 - 5.0 %) 1 Absolute Lymphocytes (1.2 - 3.4 /CUMM) 1.1 L 1.2 Lymphocytes (20.5 - 51.1 %) 8 L Monocytes (1.7 - 9.3 %) 7 Absolute Monocytes (0.10 - 0.60 /CUMM) 0.6 0.5 Eosinophils (0 - 5.0 %) 5 Absolute Eosinophils (0.0 - 0.7 /CUMM) 0.4 0.4 Absolute Basophils (0.0 - 0.2 /CUMM) 0.1 0.1 Platelet Estimate (ADEQUATE) INCREASED Polychromasia 1+ Basophilic Stippling SLIGHT Ovalocytes FEW PUBS MCHC (33.0 - 37.0 G/DL) 33.8 33.5 Other Body Source Fld Total RBCs Counted (%) 100 Imaging/Other Studies: 06/23/17: EKG- NSR @ 83, RBBB, LAHB, multiple APC, LVH, PRWP (without change from prior EKG) Please see Anystream for numerous imaging studies obtained from -06/29/17. 06/29/17: CT ABD & PELVIS W/O IV CONTRAST; CT CHEST WO IV CONTRAST- 1. *Limited noncontrast study. The [id number]-[id number] is also limited. The lateral aspects of the patient's body are excluded from the field of view secondary to the large body habitus. In addition, there is significant artifact related to the patient's arms which are at their sides. 2. No definite evidence for an intrathoracic, abdominal or pelvic hematoma. *An active arterial bleed cannot be assessed on this noncontrast study. 3. Decrease in size of a right-sided hydropneumothorax compared to the prior chest CT. A chest tube in position. 06/29/17: XRY-PORTABLE CHEST XRAY- Persistent consolidation of right middle and right lower lobes and unchanged appearance of the loculated right pleural effusion with thoracostomy tube in place. 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 She also had some symptoms of UTI. On admission, WBC 47K (93S/5B) BUN/Cr 65/3.7, GFR 12, Na 134, K 3.0, HCO3 20, AG 18, nl lactate 1.6, TBil 0.4, alk phos 243, AST/ALT 42/ 52, albumin 2.9, globulin 3.9, troponin 0.23, proBNP 2520, INR 1.33, ABG 7.26/ 40/77 on 6L. U/A: >75 WBCs. Chest x-ray- opacity in the right hemithorax. Doppler of the right lower extremity was negative for DVT, but revealed a thrombus within the greater saphenous vein of the proximal thigh, extending to the saphenofemoral junction. The patient has been on numerous antibiotics and steroids here. She was seen by numerous consultants, including medicine, cardiology, endocrine, thoracic surgery, pulmonary, ID, & renal. She was found to have an empyema with complicated effusion with hemorrhagic fluid (06/13/17: 26,800 RBC, 12,750 WBC with 95% PMN), & underwent 06/23/17: right thoracotomy with drainage of empyema and decortication of RLL. 1400 mL of serosanguineous fluid was drained from the thoracic cavity with placement of 2 chest tubes. Additionally, she had a ? PE, with indeterminate 06/16/17: VQ scan. The patient was placed on Unasyn for H. influenza, as she had positive blood cultures. She received numerous transfusions of PRBC. Again, she did have serosanguineous fluid coming out of the chest tube, but did have one stool positive for occult blood, prompting the GI consult. She was on aspirin 325 mg po daily from 06/25/17-06/28/17. There were no NSAIDS. I did not see any A/C therapy in the computer. *She had received a total of 8u PRBC from 06/23/17-02/06. There have been no coags sent since 06/12/17. The patient denied any vaginal spotting or gross hematuria. She did have intermittent hemoptysis and coughed up some blood while I was in the room during the 06/29/17: GI consult. She was very nervous. She denied any GERD, odynophagia, dysphagia, or definite early satiety, although she was somewhat unsure, regarding the latter. She denied any abdominal pain, hematemesis, or melena. She denied any diarrhea, constipation, obstipation, tenesmus, or rectal bleeding. She never had an EGD or colonoscopy. There is no family history of GI CA, GI disease, or inherited liver disease. She tolerated solids po today. She currently denied any fevers, chills, jaundice, or significant weight loss. 06/12/17: PT 13.9, INR 1.33, PTT 71 06/12/17: troponin 0.23-> 0.25-> 0.18 06/28/17: U/A- pyuria, without gross hematuria. 06/29/17: WBC 11.5, H/H 6.3/18.6 (*prior to 7th u PRBC), MCV 90.1, RDW 16.4, PLT 267, glucose 197, BUN/Cr 75/3.1, GFR 15, Na 141, K 4.4, HCO3 21, AG 13, Mg 1.7, Ca 8.2, PO4 5.4, alb 2.2, TBil 0.3, AST 18, ALT 34 06/23/17: EKG- NSR @ 83, RBBB, LAHB, multiple APC, LVH, PRWP (without change from prior EKG) Please see Anystream for numerous imaging studies obtained from -06/29/17. 06/29/17: CT ABD & PELVIS W/O IV CONTRAST; CT CHEST WO IV CONTRAST- 1. *Limited noncontrast study. The [id number] is also limited. The lateral aspects of the patient's body are excluded from the field of view secondary to the large body habitus. In addition, there is significant artifact related to the patient's arms which are at their sides. 2. No definite evidence for an intrathoracic, abdominal or pelvic hematoma. *An active arterial bleed cannot be assessed on this noncontrast study. 3. Decrease in size of a right-sided hydropneumothorax compared to the prior chest CT. A chest tube in position. 06/29/17: XRY-PORTABLE CHEST XRAY- Persistent consolidation of right middle and right lower lobes and unchanged appearance of the loculated right pleural effusion with thoracostomy tube in place. I was not convinced at the time of the 06/29/17: GI consult that the primary soure of the patient's severe multifactorial anemia requiring 8u PRBC to date was GI in nature. The patient only had brown, OB positive stool. I would have expected reddish or maroon blood per rectum, melena, or hematemesis for presumed active GI bleeding, to account for blood loss of this magnitude. Coags had not been checked since 06/12/17. I doubt DIC with normal platelet count. I also doubt hemolysis with normal TBil. The patient's initial chest tap was bloody & she just had some mild hemoptysis. The 06/29/17: CT CAP was somewhat limited in looking for active bleeding without IV contrast, which was limited by the patient's CKD. No gross retroperitoneal bleeding was seen. The patient was extremely anxious. The risks and benefits of EGD were discussed with the patient, and she reluctantly agreed to proceed with this tomorrow, on 06/30/17. ASA is on hold. *SUGGEST: *NPO after 11:59 p.m. on 06/29/17 for baseline EGD on 06/30/17. *Empiric Protonix 40 mg IV daily.*Check CBC Q8-12h for now. T&C 2u PRBC. *Keep Hgb > 7 ( no documented ASHD). Supplemental O2. Strict I/O's. *Check PT/PTT, haptoglobin, LDH, & peripheral smear. *Consider checking fibrinogen & FDP. *Follow-up with pulmonary & CTS for potential non-GI sources of bleeding. If EGD negative, consideration for eventual baseline colonoscopy, but not certain if patient will comply. DVT prophylaxis with mechanical ALPS. Further GI recommendations to follow, depending on clinical course. The above was discussed with the medical housestaff in depth. I discussed the case with Dr. Munoz & Dr. Bartlett, & left a message with Dr. Rebolledo. 1 hour of ICU care was spent on the patient. Problem List: 1. Acute blood loss anemia 2. Occult blood positive stool 3. Empyema 4. Hemoptysis 5. CHRONIC RENAL FAILURE Copies To: Dhruv RODAS,Carlos Grayson; Jamse RODAS,Rodrigue Brandon; Louie RODAS,Thien Denise; Alexander RODAS,Steven Ashby; Amaury White MD,Steven Brandon; Saúl RODAS,Brandi Lucas MD PHD,Carlos Miguelito. Consult Acknowledgment - Thank you for your consult request.
[2017-06-30 00:11] LABS: ABSOLUTE BASOPHIL COUNT 0 /CUMM (0.0-0.2); ABSOLUTE EOSINOPHIL COUNT 0.3 /CUMM (0.0-0.7); ABSOLUTE GRANULOCYTE CT 11.7 /CUMM (1.4-6.5); ABSOLUTE MONOCYTE COUNT 0.6 /CUMM (0.10-0.60); BASOPHIL % 0.3 % (0.0-2.0); EOSINOPHIL % 2.1 % (0-5); GRANULOCYTE % 85.6 % (42.2-75.2); HEMATOCRIT 20.5 % (37-47); MEAN CORPUSCULAR HGB 29.7 PG (27.0-31.0); MEAN CORPUSCULAR HGB CONC 33.5 G/DL (33.0-37.0); MEAN CORPUSCULAR VOLUME 88.8 FL (81.0-99.0); MEAN PLATELET VOLUME 6.7 FL (7.4-10.4); PLATELET COUNT 233 /CUMM (130-400); RED BLOOD CELL CT 2.31 /CUMM (4.20-5.40); WHITE BLOOD CELL COUNT 13.7 /CUMM (4.8-10.8)
[2017-06-30 06:20] LABS: PT 14.8 SEC (9.4-12.5)
--- NOTE | 2017-06-30 07:20 | PN- Housestaff ---
Subjective Follow-up For: POD s/p R thoracotomy/decortication for empyema Subjective: Ms Vo was seen and examined this morning. She appears upset and states that she feels like she can no longer go on. She states that she is in no active pain and reports that the site of the chest tube is not bothering her. She received a GI consultation last evening and she is currently NPO awaiting to go for a Endoscopy later this morning. She denies any fever, chills, nausea or vomiting. Review of Systems Constitutional: Reports: see HPI. Objective Last 24 Hrs of Vital Signs/I&O Vital Signs Date Time Temp Pulse Resp B/P B/P Pulse O2 O2 Flow FiO2 Mean Ox Delivery Rate 06/30 832 94 Nasal 2.0L Cannula 06/30 822 19 95 Room Air 06/30 0000 98 Nasal 2.0L Cannula 06/29 2314 97.3 68 16 138/40 95 Nasal 2.0L Cannula 06/29 2013 98 Nasal 2.0L Cannula 06/29 1999 98 Nasal 2.0L Cannula 06/29 1600 Nasal 2.0L Cannula 06/29 1600 96.9 70 20 142/62 97 Nasal 2.0L Cannula Intake & Output 06/30 1600 06/30 0800 06/30 0000 Intake Total 480 1900 Output Total 825 1130 Balance -345 770 Intake, Blood 350 690 Product Intake, IV 130 130 Intake, Oral 0 1080 Number 3 5 Bowel Movements Output, Chest 25 30 Tube Drainage Output, Urine 800 1100 Patient 114.929 kg Weight Weight Bed scale Measurement Method Physical Exam General Appearance: Alert, Oriented X3, Cooperative Cardiovascular: Regular Rate, Normal S1, Normal S2 Lungs: Clear to Auscultation Abdomen: Normal Bowel Sounds, Soft, No Tenderness, Distended Neurological: Normal Speech Extremities: No Clubbing, No Cyanosis, Edema 2+. Current Medications: Current Medications Sig/Suleman Start time Last Medication Dose Route Stop Time Status Admin Acetaminophen 1,000 MG Q6P PRN 06/19 1130 AC 06/25 N/A 1 UNIT IV 1527 Albuterol Sulfate 3 ML EVERY 4 HRS/AWAKE 06/26 1234 AC 06/30 INH 0818 Ampicillin Sodium/ 3,000 MG Q8H 06/23 1600 AC 06/30 Sulbactam Sodium IV 0849 Sodium Chloride 100 ML Atorvastatin Calcium 40 MG 1700 06/15 1700 AC 06/29 PO 1651 Calcium Carbonate 500 MG DAILY 06/21 1000 AC 06/30 PO 0855 Dextrose/Sodium 1,000 ML Q13H 06/30 0800 DC Chloride IV Dextrose/Water 1,000 ML Q13H 06/30 0815 06/30 IV 0849 Docusate Sodium 100 MG BID 06/12 2359 AC 06/28 PO 0853 Hydromorphone HCl 2 MG Q4P PRN 06/27 1115 06/30 IV 0559 Hydromorphone HCl 1.2 MG Q4-6 PRN PRN 06/24 1100 06/27 IV 0522 Insulin Aspart 0 Q4 06/30 1000 06/30 SC 0856 Insulin Aspart 0 TIDAC/HS 06/24 1200 OK 06/29 SC 1651 Insulin Detemir 25 UNITS BID 06/28 2200 OK 06/29 RI 2112 Lidocaine 1 PAT DAILY@1700 06/20 1700 06/27 EXT 1644 Melatonin 5 MG AT BEDTIME 06/21 2200 06/29 PO 2112 Nitroglycerin 0.5 GM Q6P PRN 06/15 1830 TOP Oxycodone HCl 40 MG Q12 06/25 2200 AC 06/30 PO 0850 Oxycodone HCl 10 MG Q4P PRN 06/23 1730 06/25 PO 0944 Oxycodone HCl 20 MG Q4P PRN 06/23 1730 06/27 PO 0257 Pantoprazole Sodium 40 MG DAILY 06/30 1000 AC 06/30 IV 0855 Pregabalin 75 MG BID 06/13 2200 06/30 PO 0850 Senna/Docusate Sodium 1 TAB BID 06/27 1145 06/28 PO 0853 Sodium Chloride 2 SPRAY Q4P PRN 06/27 0015 06/27 TREY 0209 Tiotropium [place] 1 PUF DAILY 06/14 1000 06/30 INH 0855 Last 24 Hrs of Lab/Drew Results Last 24 Hrs of Labs/Mics: Laboratory Tests 06/30/17 0524: Anion Gap 11, Estimated GFR 17 L, Glucose 154 H, Calcium 8.1 L, Phosphorus 5.2 H, Magnesium 1.6, Total Bilirubin 0.6, AST 33, ALT 43, Albumin 2.1 L, PT 14.8 H, INR 1.41 H, Fibrinogen Activity 356, D-Dimer High Sensitivty 3236 H, Haptoglobin Pending 06/30/17 0000: CBC w Diff Cancelled, WBC Cancelled, RBC Cancelled, Hgb Cancelled, Hct Cancelled , MCV Cancelled, MCH Cancelled, RDW Cancelled, Plt Count Cancelled, MPV Cancelled, PUBS MCHC Cancelled 06/29/17 2316: CBC w Diff MAN DIFF ORDERED, RBC 2.31 L, MCV 88.8, MCH 29.7, RDW 16.0 H, MPV 6.7 L, Gran % 85.6 H, Lymphocytes % 7.6 L, Monocytes % 4.4, Eosinophils % 2.1 , Basophils % 0.3, Absolute Granulocytes 11.7 H, Segmented Neutrophils 90 H, Absolute Lymphocytes 1.0 L, Lymphocytes 5 L, Monocytes 2, Absolute Monocytes 0.6, Eosinophils 3, Absolute Eosinophils 0.3, Absolute Basophils 0, Platelet Estimate ADEQUATE, Polychromasia 1+, Poikilocytosis 1+, Basophilic Stippling 1+, Ovalocytes 1+, PUBS MCHC 33.5, Fld Total RBCs Counted 100 06/29/17 2200: CBC w Diff Cancelled, WBC Cancelled, RBC Cancelled, Hgb Cancelled, Hct Cancelled , MCV Cancelled, MCH Cancelled, RDW Cancelled, Plt Count Cancelled, MPV Cancelled, PUBS MCHC Cancelled 06/29/17 1405: CBC w Diff NO MAN DIFF REQ, RBC 2.07 L, MCV 90.1, MCH 30.4, RDW 16.4 H, MPV 6.7 L, Gran % 82.3 H, Lymphocytes % 10.5 L, Monocytes % 4.6, Eosinophils % 2.1, Basophils % 0.5, Absolute Granulocytes 9.5 H, Absolute Lymphocytes 1.2, Absolute Monocytes 0.5, Absolute Eosinophils 0.2, Absolute Basophils 0.1, PUBS MCHC 33.7 Assessment/Plan Assessment: 61-year-old woman, current smoker with a history of COPD, diabetes type 2 with diabetic neuropathy, left leg DVT status post IVC filter, chronic kidney disease , neuropathy and peripheral vascular disease, 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 Patient had drainage and Pleurx catheter drain placed on the for question of empyema. Fluid was found to be slightly blood tinged serous grossly. Fluid composition showed elevated WBCs, RBCs, pH 6.4, LDH of 3819. She is on Unasyn. She was found to have extremely elevated white blood cell count on admission of 44. Chest x-ray done after placement on 06/13 showed persistent moderate volume of her right pleural effusion. WBCs continue to be elevated. Patient had repositioning of pigtail catheter and VQ scan done under anesthesia which returned with low to intermediate probability of PE so she was continued on IV heparin. As per cardiothoracic surgery, the patient might be bleeding and suggests discontinuing heparin. However as per cardiology the patient requires anticoagulation for potential PE. Patient has had minimal drainage after repositioning of pigtail catheter. Plan #1 Acute hypoxic respiratory failure likely secondary to community-acquired pneumonia, COMPLICATED BY EMPYEMA: She was found to have an empyema which was drained with Pleurx catheter. Fluid was found to be exudative in nature. Catheter drainage was ?650 mL of serous sanguinous fluid from first pigtail catheter placement with minimal drainage after repositioning. Repeat CT of the chest was done under anesthesia today, postoperatively stable, clearly shows complex empyema, compressing most of the lung tissue on the right side. Patient sent for lung decortication today. -Chest x-ray today: Persistent consolidation of right middle and right lower lobes and unchanged appearance of the loculated right pleural effusion with thoracostomy tube in place. Unasyn 3 g every 12 to every 8 hours #Pleuritic chest pain with positive troponins: Likely due to demand ischemia, with AMEYA also contributing to it. -According to Dr. Lucas, if patient has precordial chest pain then can begin NTG paste 1/2 inch Q 6 hours. -According to Dr. Lucas, cardiology, myocardial ischemia cannot be 100% excluded and patient should later have outpatient risk stratification with a stress test. #Urinary tract infection: Dirty urine, cultures positive for staph aureus -She has received an adequate course of Vancomycin for a lower urinary tract infection. Currently on Unasyn. Will continue. #Anemia -Patient had hemoglobin 6.9/20.5 this am. Will be transfused another unit of PRBC. Total 9 units. -Currently pending formal endoscopy. -Guaiac + -Formal GI consultation Obtained. Patient might require colnoscopy if results from endoscopy are inconclusive. #Insulin-dependent diabetes mellitus, Uncontrolled * Blood sugars are at 205,182,182,187 * SS adjusted as per endo recommendations. * Pateint currently NPO, can advance diet once cleared by surgery, may also need to resure coverage for hyperglycemia. * Levemir 25 Units BID, SS as per note on 06/28/2017. # Elevated proBNP at 2590. No previous echo on record. * Echo showed good ejection fraction and no obvious wall motion regional abnormalities * Daily I/O and weight checks. #Acute kidney injury on chronic kidney disease * Patient has had persistent bicarb deficiency during this stay, has never had this problem before. * Monitory BEP. Cr 2.8. * Avoid nephrotoxins # Hyperkalemia * Potassium has normalized. K: 4.1 #Diarrhea, Resolved * Discontinue stool softener -Pain Control with Dilaudid and IV Tylenol -Diabetic diet -DVT prophylaxis Alps on right leg -Full code Problem List: 1. Acute blood loss anemia 2. Empyema Pain Ratin Pain Location: Right Chest Pain Goal: Remain pain free Pain Plan: Acetaminophen PRN Tomorrow's Labs & Rationales: CBC: Monitor H/h in the setting of acute illness/falling H/H ICU Bundle: Monitor electrolytes in the setting of acute illness.
--- NOTE | 2017-06-30 07:36 | PN- Diabetes ---
Assessment/Plan Assessment: This 61-year-old woman with a known history of type 2 diabetes mellitus associated with morbid obesity and with severe complications including a left below the knee amputation diabetic neuropathy and chronic kidney diseases stage 4 presented to the emergency room with respiratory failure. The patient underwent right thoracotomy with drainage of an empyema. A great deal of loculation of fibrosis was found apparently according to the operative note. The patient is on Levemir 25 units twice a day. She is awake and alert this morning. She is scheduled for GI procedures and is nothing by mouth Her blood sugar this morning is 154 in the lab at 5:30 AM. The patient received packed cells yesterday. Plan: Suggest that while the patient is nothing by mouth run D5 half-normal saline at 75 mL per hour. I would hold the patient's morning Levemir. We can begin sliding-scale NovoLog every 4 hours as outlined in my note yesterday. When the patient resumes eating we can resume her usual insulin. Subjective Subjective: Patient feels frightened the procedure Review of Systems Constitutional: Denies: chills, fever. Cardiovascular: Denies: chest pain. Respiratory: Denies: cough, short of breath. Gastrointestinal: Denies: abdominal pain, nausea, vomiting. Objective Last 24 Hrs of Vital Signs/I&O Vital Signs Date Time Temp Pulse Resp B/P B/P Pulse O2 O2 Flow FiO2 Mean Ox Delivery Rate 06/30 0000 98 Nasal 2.0L Cannula 06/29 2314 97.3 68 16 138/40 95 Nasal 2.0L Cannula 06/29 2013 98 Nasal 2.0L Cannula 06/29 1999 98 Nasal 2.0L Cannula 06/29 1600 Nasal 2.0L Cannula 06/29 1600 96.9 70 20 142/62 97 Nasal 2.0L Cannula 06/29 08 97 Nasal 2.0L Cannula 06/29 08 Nasal 2.0L Cannula 06/29 799 97.2 58 20 112/50 96 Nasal 2.0L Cannula Intake & Output 06/30 0806/30 0000 06/29 1600 Intake Total 480 1900 1430 Output Total 825 1130 900 Balance -345 770 530 Intake, Blood 350 690 340 Product Intake, IV 130 130 130 Intake, Oral 0 1080 960 Number 3 5 4 Bowel Movements Output, Chest 25 30 Tube Drainage Output, Urine 800 1100 900 Patient 253 lb Weight Weight Bed scale Measurement Method Vital Signs Date Time Temp Pulse Resp B/P B/P Pulse O2 O2 Flow FiO2 Mean Ox Delivery Rate 06/30 0000 98 Nasal 2.0L Cannula 06/29 2314 97.3 68 16 138/40 95 Nasal 2.0L Cannula 06/29 2013 98 Nasal 2.0L Cannula 06/29 1999 98 Nasal 2.0L Cannula 06/29 1599 Nasal 2.0L Cannula 06/29 1599 96.9 70 20 142/62 97 Nasal 2.0L Cannula 06/29 800 97 Nasal 2.0L Cannula 06/29 799 Nasal 2.0L Cannula 06/29 799 97.2 58 20 112/50 96 Nasal 2.0L Cannula Intake & Output 06/30 0000 06/29 1600 Intake Total 480 1900 1430 Output Total 825 1130 900 Balance -345 770 530 Intake, Blood 350 690 340 Product Intake, IV 130 130 130 Intake, Oral 0 1080 960 Number 3 5 4 Bowel Movements Output, Chest 25 30 Tube Drainage Output, Urine 800 1100 900 Patient 253 lb Weight Weight Bed scale Measurement Method Physical Exam General Appearance: alert, awake, anxious Head: normal appearance Respiratory: decreased breath sounds (right lung) Cardiovascular: regular rate/rhythm Extremities: normal inspection Current Medications: Current Medications Sig/Suleman Start time Last Medication Dose Route Stop Time Status Admin Acetaminophen 1,000 MG Q6P PRN 06/19 1130 AC 06/25 N/A 1 UNIT IV 1527 Albuterol Sulfate 3 ML EVERY 4 HRS/AWAKE 06/26 1234 AC 06/29 INH 2010 Ampicillin Sodium/ 3,000 MG Q8H 06/23 1600 AC 06/30 Sulbactam Sodium IV 0010 Sodium Chloride 100 ML Atorvastatin Calcium 40 MG 1700 06/15 1700 AC 06/29 PO 1651 Calcium Carbonate 500 MG DAILY 06/21 1000 AC 06/29 PO 0833 Docusate Sodium 100 MG BID 06/12 2359 AC 06/28 PO 0853 Hydromorphone HCl 2 MG Q4P PRN 06/27 1115 AC 06/30 IV 0559 Hydromorphone HCl 1.2 MG Q4-6 PRN PRN 06/24 1100 AC 06/27 IV 0522 Insulin Aspart 0 TIDAC/HS 06/24 1200 AC 06/29 SC 1651 Insulin Detemir 25 UNITS BID 06/28 2200 AC 06/29 SC 2112 Lidocaine 1 PAT DAILY@1700 06/20 1700 AC 06/27 EXT 1644 Lorazepam 1 MG ONCE ONE 06/29 914 DC 06/29 IV 06/29 915 09 Melatonin 5 MG AT BEDTIME 06/21 2200 AC 06/29 PO 211 Nitroglycerin 0.5 GM Q6P PRN 06/15 1830 AC TOP Oxycodone HCl 40 MG Q12 06/25 220 AC 06/29 PO 211 Oxycodone HCl 10 MG Q4P PRN 06/23 1730 AC 06/25 PO 0944 Oxycodone HCl 20 MG Q4P PRN 06/23 1730 AC 06/27 PO 0257 Pantoprazole Sodium 40 MG DAILY 06/30 1000 AC IV Pregabalin 75 MG BID 06/13 2200 AC 06/29 PO 211 Senna/Docusate Sodium 1 TAB BID 06/27 1145 AC 06/28 PO 0853 Sodium Chloride 2 SPRAY Q4P PRN 06/27 0015 AC 06/27 TREY 0209 Tiotropium [place] 1 PUF DAILY 06/14 1000 AC 06/29 INH 1204 Findings Pertinent Lab/Drew Results: Laboratory Tests 06/30 06/30 06/29 0524 0000 2316 Chemistry Sodium (137 - 145 mmol/L) 141 Potassium (3.5 - 5.1 mmol/L) 4.1 Chloride (98 - 107 mmol/L) 110 H Carbon Dioxide (22 - 30 mmol/L) 20 L Anion Gap (5 - 16) 11 BUN (7 - 17 mg/dL) 85 H Creatinine (0.5 - 1.0 mg/dL) 2.8 H Estimated GFR (>60 ml/min) 17 L Glucose (65 - 99 mg/dL) 154 H Calcium (8.4 - 10.2 mg/dL) 8.1 L Phosphorus (2.5 - 4.5 mg/dL) 5.2 H Magnesium (1.6 - 2.3 mg/dL) 1.6 Total Bilirubin (0.2 - 1.3 mg/dL) 0.6 AST (14 - 36 U/L) 33 ALT (9 - 52 U/L) 43 Albumin (3.5 - 5.0 g/dL) 2.1 L Coagulation PT (9.4 - 12.5 SEC) 14.8 H INR (0.90 - 1.19) 1.41 H Fibrinogen Activity (200 - 393 MG/DL) 356 D-Dimer High Sensitivty (0 - 243 ng/ml) 3236 H Hematology CBC w Diff Cancelled MAN DIFF ORDERED WBC (4.8 - 10.8 /CUMM) Cancelled 13.7 H RBC (4.20 - 5.40 /CUMM) Cancelled 2.31 L Hgb (12.0 - 16.0 G/DL) Cancelled 6.9 *L Hct (37 - 47 %) Cancelled 20.5 L MCV (81.0 - 99.0 FL) Cancelled 88.8 MCH (27.0 - 31.0 PG) Cancelled 29.7 RDW (11.5 - 14.5 %) Cancelled 16.0 H Plt Count (130 - 400 /CUMM) Cancelled 233 MPV (7.4 - 10.4 FL) Cancelled 6.7 L Gran % (42.2 - 75.2 %) 85.6 H Lymphocytes % (20.5 - 51.1 %) 7.6 L Monocytes % (1.7 - 9.3 %) 4.4 Eosinophils % (0 - 5 %) 2.1 Basophils % (0.0 - 2.0 %) 0.3 Absolute Granulocytes (1.4 - 6.5 /CUMM) 11.7 H Segmented Neutrophils (42.2 - 75.2 %) 90 H Absolute Lymphocytes (1.2 - 3.4 /CUMM) 1.0 L Lymphocytes (20.5 - 51.1 %) 5 L Monocytes (1.7 - 9.3 %) 2 Absolute Monocytes (0.10 - 0.60 /CUMM) 0.6 Eosinophils (0 - 5.0 %) 3 Absolute Eosinophils (0.0 - 0.7 /CUMM) 0.3 Absolute Basophils (0.0 - 0.2 /CUMM) 0 Platelet Estimate (ADEQUATE) ADEQUATE Polychromasia 1+ Poikilocytosis 1+ Basophilic Stippling 1+ Ovalocytes 1+ PUBS MCHC (33.0 - 37.0 G/DL) Cancelled 33.5 Haptoglobin Pending Other Body Source Fld Total RBCs Counted (%) 100 06/29 06/29 2200 1405 Hematology CBC w Diff Cancelled NO MAN DIFF REQ WBC (4.8 - 10.8 /CUMM) Cancelled 11.5 H RBC (4.20 - 5.40 /CUMM) Cancelled 2.07 L Hgb (12.0 - 16.0 G/DL) Cancelled 6.3 *L Hct (37 - 47 %) Cancelled 18.6 *L MCV (81.0 - 99.0 FL) Cancelled 90.1 MCH (27.0 - 31.0 PG) Cancelled 30.4 RDW (11.5 - 14.5 %) Cancelled 16.4 H Plt Count (130 - 400 /CUMM) Cancelled 267 MPV (7.4 - 10.4 FL) Cancelled 6.7 L Gran % (42.2 - 75.2 %) 82.3 H Lymphocytes % (20.5 - 51.1 %) 10.5 L Monocytes % (1.7 - 9.3 %) 4.6 Eosinophils % (0 - 5 %) 2.1 Basophils % (0.0 - 2.0 %) 0.5 Absolute Granulocytes (1.4 - 6.5 /CUMM) 9.5 H Absolute Lymphocytes (1.2 - 3.4 /CUMM) 1.2 Absolute Monocytes (0.10 - 0.60 /CUMM) 0.5 Absolute Eosinophils (0.0 - 0.7 /CUMM) 0.2 Absolute Basophils (0.0 - 0.2 /CUMM) 0.1 PUBS MCHC (33.0 - 37.0 G/DL) Cancelled 33.7
[2017-06-30 08:00] VITALS: BP 114/58
--- NOTE | 2017-06-30 08:24 | PN- Pulmonary ---
Subjective HPI/Critical Care Issues: Patient is awake alert with decreasing chest tube drainage. Source of anemia to be evaluated by GI. cT scan does not show evidence of soft tissue bleeding or intrathoracic bleeding. Objective Current Medications: Current Medications Sig/Suleman Start time Last Medication Dose Route Stop Time Status Admin Acetaminophen 1,000 MG Q6P PRN 06/19 1130 06/25 N/A 1 UNIT IV 1527 Albuterol Sulfate 3 ML EVERY 4 HRS/AWAKE 06/26 1234 AC 06/30 INH 0818 Ampicillin Sodium/ 3,000 MG Q8H 06/23 1600 AC 06/30 Sulbactam Sodium IV 0010 Sodium Chloride 100 ML Atorvastatin Calcium 40 MG 1700 06/15 1700 AC 06/29 PO 1651 Calcium Carbonate 500 MG DAILY 06/21 1000 AC 06/29 PO 0833 Dextrose/Sodium 1,000 ML Q13H 06/30 0800 DC Chloride IV Dextrose/Water 1,000 ML Q13H 06/30 0815 IV Docusate Sodium 100 MG BID 06/12 2359 AC 06/28 PO 0853 Hydromorphone HCl 2 MG Q4P PRN 06/27 1115 AC 06/30 IV 0559 Hydromorphone HCl 1.2 MG Q4-6 PRN PRN 06/24 1100 AC 06/27 IV 0522 Insulin Aspart 0 Q4 06/30 1000 AC SC Insulin Aspart 0 TIDAC/HS 06/24 1200 DC 06/29 SC 1651 Insulin Detemir 25 UNITS BID 06/28 2200 NH 06/29 SC 2112 Lidocaine 1 PAT DAILY@1700 06/20 1700 AC 06/27 EXT 1644 Lorazepam 1 MG ONCE ONE 06/29 914 DC 06/29 IV 06/29 0916 0908 Melatonin 5 MG AT BEDTIME 06/21 2200 AC 06/29 PO 2112 Nitroglycerin 0.5 GM Q6P PRN 06/15 1830 AC TOP Oxycodone HCl 40 MG Q12 06/25 2200 AC 06/29 PO 2113 Oxycodone HCl 10 MG Q4P PRN 06/23 1730 AC 06/25 PO 0944 Oxycodone HCl 20 MG Q4P PRN 06/23 1730 AC 06/27 PO 0257 Pantoprazole Sodium 40 MG DAILY 06/30 1000 AC IV Pregabalin 75 MG BID 06/13 2200 AC 06/29 PO 2113 Senna/Docusate Sodium 1 TAB BID 06/27 1145 AC 06/28 PO 0853 Sodium Chloride 2 SPRAY Q4P PRN 06/27 0015 AC 06/27 TREY 0209 Tiotropium [place] 1 PUF DAILY 06/14 1000 AC 06/29 INH 1204 Vital Signs & I&O Last 24 Hrs of Vitals and I&O: Vital Signs Date Time Temp Pulse Resp B/P B/P Pulse O2 O2 Flow FiO2 Mean Ox Delivery Rate 06/30 0000 98 Nasal 2.0L Cannula 06/29 2314 97.3 68 16 138/40 95 Nasal 2.0L Cannula 06/29 2013 98 Nasal 2.0L Cannula 06/29 1999 98 Nasal 2.0L Cannula 06/29 1599 Nasal 2.0L Cannula 06/29 1599 96.9 70 20 142/62 97 Nasal 2.0L Cannula Intake & Output 06/30 1600 06/30 0800 06/30 0000 Intake Total 480 1900 Output Total 825 1130 Balance -345 770 Intake, Blood 350 690 Product Intake, IV 130 130 Intake, Oral 0 1080 Number 3 5 Bowel Movements Output, Chest 25 30 Tube Drainage Output, Urine 800 1100 Patient 253 lb Weight Weight Bed scale Measurement Method And saturation 2 L 98% exam for chest shows diminished breath sounds persistently rise posterior bases cardiac exam shows regular S1 and S2 without murmurs Impression/Plan Impression/Plan Impression/Plan: 61-year-old with right-sided empyema secondary to community-acquired pneumonia with associated sepsis. Patient has persistent loculated effusion and leukocytosis complicated by DVT now status post evacuation of empyema and hemothorax . Chest tube drainage has diminished and white count is improved. Source of blood loss to be evaluated by GI Recommendations: Pulmonary toilet and incentive spirometry. Decision to remove chest tubes per CT surgery. Patient should be mobilized out of bed Taper FiO2 his saturations await removal of chest tube later today and GI endoscopy for acute blood loss anemia
--- NOTE | 2017-06-30 10:15 | PN- Att Addend ---
Attending Addendum Attending Brief Note Patient sitting at the edge of the bed. Trying to understand the need for the GI evaluation for the patient will agree to endoscopies in the CAT scan didn't show any obvious bleeding and vital signs are stable and no other new changes on physical. Monitoring CBC, temperature is a chest tube still in place continue antibiotic treatment as per infectious diseases continue endocrinology follow-up of the sugars. And GI evaluation in progress. Intake & Output 06/30 04006/28 040 Intake Total 350 2030 1930 1280 2108 660 Output Total 625 1330 1867 1000 1943 Balance -275 700 63 280 165 660 Intake, Blood 350 690 340 370 389 Product Intake, IV 260 130 130 519 450 Intake, Oral 0 1080 8517 925 8874 210 Number 2 6 4 4 0 Bowel Movements Output, Chest 25 30 17 43 Tube Drainage Output, Urine 600 1300 1850 1000 1900 Patient 253 lb 246 lb 215 lb 232 lb Weight Weight Bed scale Bed scale Measurement Method Current Medications Sig/Suleman Start time Last Medication Dose Route Stop Time Status Admin Acetaminophen 1,000 MG Q6P PRN 06/19 1130 AC 06/25 N/A 1 UNIT IV 1527 Albuterol Sulfate 3 ML EVERY 4 HRS/AWAKE 06/26 1234 AC 06/30 INH 0818 Ampicillin Sodium/ 3,000 MG Q8H 06/23 1600 AC 06/30 Sulbactam Sodium IV 0849 Sodium Chloride 100 ML Atorvastatin Calcium 40 MG 1700 06/15 1700 AC 06/29 PO 1651 Calcium Carbonate 500 MG DAILY 06/21 1000 AC 06/30 PO 0855 Dextrose/Sodium 1,000 ML Q13H 06/30 0800 DC Chloride IV Dextrose/Water 1,000 ML Q13H 06/30 0815 AC 06/30 IV 0849 Docusate Sodium 100 MG BID 06/12 2359 AC 06/28 PO 0853 Hydromorphone HCl 2 MG Q4P PRN 06/27 1115 AC 06/30 IV 0559 Hydromorphone HCl 1.2 MG Q4-6 PRN PRN 06/24 1100 AC 06/27 IV 0522 Insulin Aspart 0 Q4 06/30 1000 AC 06/30 SC 0856 Insulin Aspart 0 TIDAC/HS 06/24 1200 DC 06/29 SC 1651 Insulin Detemir 25 UNITS BID 06/28 2199 DC 06/29 SC 2112 Lidocaine 1 PAT DAILY@1700 06/20 1700 AC 06/27 EXT 1644 Melatonin 5 MG AT BEDTIME 06/21 2200 AC 06/29 PO 2112 Nitroglycerin 0.5 GM Q6P PRN 06/15 1830 AC TOP Oxycodone HCl 40 MG Q12 06/25 2200 AC 06/30 PO 0850 Oxycodone HCl 10 MG Q4P PRN 06/23 1730 AC 06/25 PO 0944 Oxycodone HCl 20 MG Q4P PRN 06/23 1730 AC 06/27 PO 0257 Pantoprazole Sodium 40 MG DAILY 06/30 1000 AC 06/30 IV 0855 Pregabalin 75 MG BID 06/13 2200 AC 06/30 PO 0850 Senna/Docusate Sodium 1 TAB BID 06/27 1145 AC 06/28 PO 0853 Sodium Chloride 2 SPRAY Q4P PRN 06/27 0015 AC 06/27 TREY 0209 Tiotropium [place] 1 PUF DAILY 06/14 1000 AC 06/30 INH 0855 Laboratory Tests 06/30/17 0524: Anion Gap 11, Estimated GFR 17 L, Glucose 154 H, Calcium 8.1 L, Phosphorus 5.2 H, Magnesium 1.6, Total Bilirubin 0.6, AST 33, ALT 43, Albumin 2.1 L, PT 14.8 H, INR 1.41 H, Fibrinogen Activity 356, D-Dimer High Sensitivty 3236 H, Haptoglobin Pending 06/30/17 0000: CBC w Diff Cancelled, WBC Cancelled, RBC Cancelled, Hgb Cancelled, Hct Cancelled , MCV Cancelled, MCH Cancelled, RDW Cancelled, Plt Count Cancelled, MPV Cancelled, PUBS MCHC Cancelled 06/29/17 2316: CBC w Diff MAN DIFF ORDERED, RBC 2.31 L, MCV 88.8, MCH 29.7, RDW 16.0 H, MPV 6.7 L, Gran % 85.6 H, Lymphocytes % 7.6 L, Monocytes % 4.4, Eosinophils % 2.1 , Basophils % 0.3, Absolute Granulocytes 11.7 H, Segmented Neutrophils 90 H, Absolute Lymphocytes 1.0 L, Lymphocytes 5 L, Monocytes 2, Absolute Monocytes 0.6, Eosinophils 3, Absolute Eosinophils 0.3, Absolute Basophils 0, Platelet Estimate ADEQUATE, Polychromasia 1+, Poikilocytosis 1+, Basophilic Stippling 1+, Ovalocytes 1+, [facility] MCHC 33.5, Fld Total RBCs Counted 100 06/29/17 2200: CBC w Diff Cancelled, WBC Cancelled, RBC Cancelled, Hgb Cancelled, Hct Cancelled , MCV Cancelled, MCH Cancelled, RDW Cancelled, Plt Count Cancelled, MPV Cancelled, [facility] MCHC Cancelled 06/29/17 1405: CBC w Diff NO MAN DIFF REQ, RBC 2.07 L, MCV 90.1, MCH 30.4, RDW 16.4 H, MPV 6.7 L, Gran % 82.3 H, Lymphocytes % 10.5 L, Monocytes % 4.6, Eosinophils % 2.1, Basophils % 0.5, Absolute Granulocytes 9.5 H, Absolute Lymphocytes 1.2, Absolute Monocytes 0.5, Absolute Eosinophils 0.2, Absolute Basophils 0.1, [facility] 33.7 06/29/17 0430: Anion Gap 13, Estimated GFR 15 L, Glucose 197 H, Calcium 8.2 L, Phosphorus 5.4 H, Magnesium 1.7, Total Bilirubin 0.3, AST 18, ALT 34, Lactate Dehydrogenase 526, Albumin 2.2 L, CBC w Diff NO MAN DIFF REQ, RBC 2.03 L, MCV 90.5, MCH 30.2, RDW 17.7 H, MPV 6.9 L, Gran % 82.1 H, Lymphocytes % 10.2 L, Monocytes % 4.4, Eosinophils % 2.7, Basophils % 0.6, Absolute Granulocytes 10.8 H, Absolute Lymphocytes 1.3, Absolute Monocytes 0.6, Absolute Eosinophils 0.3, Absolute Basophils 0.1, [facility] MCHC 33.3 06/28/17 2130: CBC w Diff NO MAN DIFF REQ, RBC 2.34 L, MCV 91.0, MCH 29.7, RDW 18.1 H, MPV 6.9 L, Gran % 80.4 H, Lymphocytes % 11.4 L, Monocytes % 4.2, Eosinophils % 3.3, Basophils % 0.7, Absolute Granulocytes 10.4 H, Absolute Lymphocytes 1.5, Absolute Monocytes 0.6, Absolute Eosinophils 0.4, Absolute Basophils 0.1, [facility] MCHC 32.7 L 06/28/17 1420: CBC w Diff NO MAN DIFF REQ, RBC 2.15 L, MCV 89.7, MCH 30.1, RDW 18.6 H, MPV 6.6 L, Gran % 80.5 H, Lymphocytes % 12.4 L, Monocytes % 4.3, Eosinophils % 2.2, Basophils % 0.6, Absolute Granulocytes 9.1 H, Absolute Lymphocytes 1.4, Absolute Monocytes 0.5, Absolute Eosinophils 0.2, Absolute Basophils 0.1, [facility] 33.6 06/28/17 1230: Urinalysis LIGHT H, Urine Color YEL, Urine Clarity HAZY H, Urine pH 6.0, Ur Specific [place] 1.020, Urine Protein 100 H, Urine Ketones NEG, Urine Nitrite NEG, Urine Bilirubin NEG, Urine Urobilinogen 0.2, Ur Leukocyte Esterase MOD H, Ur Microscopic SEDIMENT EXAMINED, Urine RBC 1-3, Urine WBC 25-50 H, Ur Epithelial Cells MOD H, Urine Bacteria FEW H, Urine Mucus FEW, Micro UA Comment BUDD[place] YEAST H, Urine Hemoglobin SMALL H, Urine Glucose 250 H 06/28/17 0400: Anion Gap 10, Estimated GFR 14 L, BUN/Creatinine Ratio 18.2, Phosphorus 5.2 H, Magnesium 1.7, CBC w Diff NO MAN DIFF REQ, RBC 1.99 L, MCV 93.1, MCH 31.3 H, RDW 16.9 H, MPV 7.1 L, Gran % 83.0 H, Lymphocytes % 8.5 L, Monocytes % 4.5, Eosinophils % 3.6, Basophils % 0.4, Absolute Granulocytes 9.9 H, Absolute Lymphocytes 1.0 L, Absolute Monocytes 0.5, Absolute Eosinophils 0.4, Absolute Basophils 0.1, [facility] 33.6 06/27/178: CBC w Diff NO MAN DIFF REQ, RBC 1.93 L, MCV 93.7, MCH 31.7 H, RDW 17.4 H, MPV 6.9 L, Gran % 82.3 H, Lymphocytes % 9.2 L, Monocytes % 4.8, Eosinophils % 3.2 , Basophils % 0.5, Absolute Granulocytes 9.6 H, Absolute Lymphocytes 1.1 L, Absolute Monocytes 0.6, Absolute Eosinophils 0.4, Absolute Basophils 0.1, PUBS MCHC 33.8 Microbiology 06/28 1230 URINE ROUT: Urine Culture - COMP YEAST Microbiology 06/28 123 URINE ROUT: Urine Culture - COMP YEAST Vital Signs Date Time Temp Pulse Resp B/P B/P Pulse O2 O2 Flow FiO2 Mean Ox Delivery Rate 06/30 0733 94 Nasal 2.0L Cannula 06/30 0823 19 95 Room Air 06/30 0000 98 Nasal 2.0L Cannula 06/29 2314 97.3 68 16 138/40 95 Nasal 2.0L Cannula 06/29 2013 98 Nasal 2.0L Cannula 06/29 1999 98 Nasal 2.0L Cannula 06/29 1600 Nasal 2.0L Cannula 06/29 1600 96.9 70 20 142/62 97 Nasal 2.0L Cannula
--- NOTE | 2017-06-30 10:42 | PN- Infect Dx ---
Subjective Subjective: Afebrile without complaints. She has continued to have guaiac positive stools. Objective Last 24 Hrs of Vital Signs/I&O Vital Signs Date Time Temp Pulse Resp B/P B/P Pulse O2 O2 Flow FiO2 Mean Ox Delivery Rate 06/30 0733 94 Nasal 2.0L Cannula 06/30 822 19 95 Room Air 06/30 0000 98 Nasal 2.0L Cannula 06/29 2314 97.3 68 16 138/40 95 Nasal 2.0L Cannula 06/29 2013 98 Nasal 2.0L Cannula 06/29 1999 98 Nasal 2.0L Cannula 06/29 1599 Nasal 2.0L Cannula 06/29 1599 96.9 70 20 142/62 97 Nasal 2.0L Cannula Intake & Output 06/30 0806/30 0000 Intake Total 480 1900 Output Total 825 1130 Balance -345 770 Intake, Blood 350 690 Product Intake, IV 130 130 Intake, Oral 0 1080 Number 3 5 Bowel Movements Output, Chest 25 30 Tube Drainage Output, Urine 800 1100 Patient 253 lb Weight Weight Bed scale Measurement Method Physical Exam Other Physical Findings: She appears comfortable in no acute distress Lungs are clear; chest tube in place on the right with 47 cc output yesterday and 25 cc overnight Heart regular rhythm with no murmur Abdomen is soft, nontender with positive bowel sounds Results Last 24 Hours of Lab Results: Laboratory Tests 06/30 06/30 06/29 0524 0000 2316 Chemistry Sodium (137 - 145 mmol/L) 141 Potassium (3.5 - 5.1 mmol/L) 4.1 Chloride (98 - 107 mmol/L) 110 H Carbon Dioxide (22 - 30 mmol/L) 20 L Anion Gap (5 - 16) 11 BUN (7 - 17 mg/dL) 85 H Creatinine (0.5 - 1.0 mg/dL) 2.8 H Estimated GFR (>60 ml/min) 17 L Glucose (65 - 99 mg/dL) 154 H Calcium (8.4 - 10.2 mg/dL) 8.1 L Phosphorus (2.5 - 4.5 mg/dL) 5.2 H Magnesium (1.6 - 2.3 mg/dL) 1.6 Total Bilirubin (0.2 - 1.3 mg/dL) 0.6 AST (14 - 36 U/L) 33 ALT (9 - 52 U/L) 43 Albumin (3.5 - 5.0 g/dL) 2.1 L Coagulation PT (9.4 - 12.5 SEC) 14.8 H INR (0.90 - 1.19) 1.41 H Fibrinogen Activity (200 - 393 MG/DL) 356 D-Dimer High Sensitivty (0 - 243 ng/ml) 3236 H Hematology CBC w Diff Cancelled MAN DIFF ORDERED WBC (4.8 - 10.8 /CUMM) Cancelled 13.7 H RBC (4.20 - 5.40 /CUMM) Cancelled 2.31 L Hgb (12.0 - 16.0 G/DL) Cancelled 6.9 *L Hct (37 - 47 %) Cancelled 20.5 L MCV (81.0 - 99.0 FL) Cancelled 88.8 MCH (27.0 - 31.0 PG) Cancelled 29.7 RDW (11.5 - 14.5 %) Cancelled 16.0 H Plt Count (130 - 400 /CUMM) Cancelled 233 MPV (7.4 - 10.4 FL) Cancelled 6.7 L Gran % (42.2 - 75.2 %) 85.6 H Lymphocytes % (20.5 - 51.1 %) 7.6 L Monocytes % (1.7 - 9.3 %) 4.4 Eosinophils % (0 - 5 %) 2.1 Basophils % (0.0 - 2.0 %) 0.3 Absolute Granulocytes (1.4 - 6.5 /CUMM) 11.7 H Segmented Neutrophils (42.2 - 75.2 %) 90 H Absolute Lymphocytes (1.2 - 3.4 /CUMM) 1.0 L Lymphocytes (20.5 - 51.1 %) 5 L Monocytes (1.7 - 9.3 %) 2 Absolute Monocytes (0.10 - 0.60 /CUMM) 0.6 Eosinophils (0 - 5.0 %) 3 Absolute Eosinophils (0.0 - 0.7 /CUMM) 0.3 Absolute Basophils (0.0 - 0.2 /CUMM) 0 Platelet Estimate (ADEQUATE) ADEQUATE Polychromasia 1+ Poikilocytosis 1+ Basophilic Stippling 1+ Ovalocytes 1+ PUBS MCHC (33.0 - 37.0 G/DL) Cancelled 33.5 Haptoglobin Pending Other Body Source Fld Total RBCs Counted (%) 100 06/29 06/29 2200 1405 Hematology CBC w Diff Cancelled NO MAN DIFF REQ WBC (4.8 - 10.8 /CUMM) Cancelled 11.5 H RBC (4.20 - 5.40 /CUMM) Cancelled 2.07 L Hgb (12.0 - 16.0 G/DL) Cancelled 6.3 *L Hct (37 - 47 %) Cancelled 18.6 *L MCV (81.0 - 99.0 FL) Cancelled 90.1 MCH (27.0 - 31.0 PG) Cancelled 30.4 RDW (11.5 - 14.5 %) Cancelled 16.4 H Plt Count (130 - 400 /CUMM) Cancelled 267 MPV (7.4 - 10.4 FL) Cancelled 6.7 L Gran % (42.2 - 75.2 %) 82.3 H Lymphocytes % (20.5 - 51.1 %) 10.5 L Monocytes % (1.7 - 9.3 %) 4.6 Eosinophils % (0 - 5 %) 2.1 Basophils % (0.0 - 2.0 %) 0.5 Absolute Granulocytes (1.4 - 6.5 /CUMM) 9.5 H Absolute Lymphocytes (1.2 - 3.4 /CUMM) 1.2 Absolute Monocytes (0.10 - 0.60 /CUMM) 0.5 Absolute Eosinophils (0.0 - 0.7 /CUMM) 0.2 Absolute Basophils (0.0 - 0.2 /CUMM) 0.1 PUBS MCHC (33.0 - 37.0 G/DL) Cancelled 33.7 Last 24 Hours of Drew Results: Urine culture June 28 greater than 100,000 colonies of yeast Assessment/Plan Impression: Overall improvement, with temperatures remaining normal but with a persistent leukocytosis, now 1 week status post right thoracotomy with drainage of an empyema and decortication of the right lower lobe, with CT of the chest yesterday revealing a decrease in size of the right hydropneumothorax. She remains on Unasyn for Haemophilus influenzae, which was isolated from her initial blood cultures. The source of her anemia is unclear with guaiac positive stools suggesting a GI source, and she is scheduled for an upper endoscopy later today. The candiduria likely represents colonization, status post a recent Guzman catheter, and, as she is asymptomatic, this should not require treatment. Suggestion: 1. Await upper endoscopy later today 2. Further management of her right chest tube and hydropneumothorax per Thoracic surgery 3. Continue Unasyn
[2017-06-30 11:37] LABS: ABSOLUTE BASOPHIL COUNT 0 /CUMM (0.0-0.2); ABSOLUTE EOSINOPHIL COUNT 0.2 /CUMM (0.0-0.7); ABSOLUTE LYMPH COUNT 1.2 /CUMM (1.2-3.4); ABSOLUTE MONOCYTE COUNT 0.5 /CUMM (0.10-0.60); BASOPHIL % 0.3 % (0.0-2.0); EOSINOPHIL % 1.8 % (0-5); HEMATOCRIT 23.2 % (37-47); MEAN CORPUSCULAR HGB 29.7 PG (27.0-31.0); MEAN CORPUSCULAR HGB CONC 33.9 G/DL (33.0-37.0); MEAN CORPUSCULAR VOLUME 87.7 FL (81.0-99.0); MEAN PLATELET VOLUME 6.9 FL (7.4-10.4); PLATELET COUNT 249 /CUMM (130-400); RBC DISTRIBUTION WIDTH 16.3 % (11.5-14.5); RED BLOOD CELL CT 2.64 /CUMM (4.20-5.40)
--- NOTE | 2017-06-30 11:44 | PN- Nephrology ---
Assessment/Plan Assessment: 1. Chronic kidney disease. Likely diabetic nephropathy. Her renal function is returned close to her baseline. 2. Pneumonia with empyema. 3. Diabetes mellitus 4. Peripheral vascular disease. Status post left BKA 5. Neuropathy 6. Metabolic acidosis. 7. Anemia. currently being transfused Suggestion: 1. Avoid nephrotoxins 2. Continue with strict I's and O's and daily weights 3. May need to consider an MEAGAN Subjective Subjective: Patient is breathing okay. She is glad to hear that her creatinine is near her previous baseline. Objective Vital Signs and I&Os Vital Signs Date Time Temp Pulse Resp B/P B/P Pulse O2 O2 Flow FiO2 Mean Ox Delivery Rate 06/30 1100 18 95 Room Air 06/30 0733 94 Nasal 2.0L Cannula 06/30 0723 19 95 Room Air 06/30 0800 97.2 55 20 114/58 97 Room Air 06/30 0000 98 Nasal 2.0L Cannula 06/29 2314 97.3 68 16 138/40 95 Nasal 2.0L Cannula 06/29 2013 98 Nasal 2.0L Cannula 06/29 1999 98 Nasal 2.0L Cannula 06/29 1599 Nasal 2.0L Cannula 06/29 1599 96.9 70 20 142/62 97 Nasal 2.0L Cannula Intake & Output 06/30 1600 06/30 0400 06/29 1600 06/29 0400 06/28 1600 06/28 0400 Intake Total 350 2030 1930 1280 2108 660 Output Total 625 1330 1867 1000 1943 Balance -275 700 63 280 165 660 Intake, Blood 350 690 340 370 389 Product Intake, IV 260 130 130 519 450 Intake, Oral 0 1080 4844 603 3195 210 Number 2 6 4 4 0 Bowel Movements Output, Chest 25 30 17 43 Tube Drainage Output, Urine 600 1300 1850 1000 1900 Patient 253 lb 246 lb 215 lb 232 lb Weight Weight Bed scale Bed scale Measurement Method Physical Exam: General Appearance: well developed/nourished, alert, awake, anxious, no distress , obese Head: atraumatic, normal appearance Eyes: Bilateral: PERRL, EOMI, pale conjunctivae. Neck: normal inspection, supple, full range of motion Respiratory: decreased breath sounds Cardiovascular: regular rate/rhythm Gastrointestinal: normal bowel sounds, soft, non-tender, no organomegaly Back: normal inspection Extremities: no edema, status post left BKA Neurologic/Psych: no gross motor/sensory deficits, Cranial Nerves: normal hearing, normal speech Skin: no rash Current Medications: Current Medications Sig/Suleman Start time Last Medication Dose Route Stop Time Status Admin Acetaminophen 1,000 MG Q6P PRN 06/19 1130 06/25 N/A 1 UNIT IV 1527 Albuterol Sulfate 3 ML EVERY 4 HRS/AWAKE 06/26 1234 AC 06/30 INH 0818 Ampicillin Sodium/ 3,000 MG Q8H 06/23 1600 AC 06/30 Sulbactam Sodium IV 0849 Sodium Chloride 100 ML Atorvastatin Calcium 40 MG 1700 06/15 1700 AC 06/29 PO 1651 Calcium Carbonate 500 MG DAILY 06/21 1000 AC 06/30 PO 0855 Dextrose/Sodium 1,000 ML Q13H 06/30 0800 DC Chloride IV Dextrose/Water 1,000 ML Q13H 06/30 0815 06/30 IV 0849 Docusate Sodium 100 MG BID 06/12 2359 06/28 PO 0853 Hydromorphone HCl 2 MG Q4P PRN 06/27 1115 06/30 IV 0559 Hydromorphone HCl 1.2 MG Q4-6 PRN PRN 06/24 1100 06/27 IV 0522 Insulin Aspart 0 Q4 06/30 1000 06/30 SC 0856 Insulin Aspart 0 TIDAC/HS 06/24 1200 PR 06/29 SC 1651 Insulin Detemir 25 UNITS BID 06/28 2200 PR 06/29 TN 2112 Lidocaine 1 PAT DAILY@1700 06/20 1700 AC 06/27 EXT 1644 Melatonin 5 MG AT BEDTIME 06/21 2200 AC 06/29 PO 2112 Nitroglycerin 0.5 GM Q6P PRN 06/15 1830 TOP Oxycodone HCl 40 MG Q12 06/25 2200 AC 06/30 PO 0850 Oxycodone HCl 10 MG Q4P PRN 06/23 1730 06/25 PO 0944 Oxycodone HCl 20 MG Q4P PRN 06/23 1730 06/27 PO 0257 Pantoprazole Sodium 40 MG DAILY 06/30 1000 06/30 IV 0855 Pregabalin 75 MG BID 06/13 2200 AC 06/30 PO 0850 Senna/Docusate Sodium 1 TAB BID 06/27 1145 01/07 PO 0853 Sodium Chloride 2 SPRAY Q4P PRN 06/27 0015 AC 06/27 TREY 0209 Tiotropium [place] 1 PUF DAILY 06/14 1000 AC 06/30 INH 0855 Results Pertinent Lab Results: Laboratory Tests 06/30 06/30 06/30 1054 0524 0000 Chemistry Sodium (137 - 145 mmol/L) 141 Potassium (3.5 - 5.1 mmol/L) 4.1 Chloride (98 - 107 mmol/L) 110 H Carbon Dioxide (22 - 30 mmol/L) 20 L Anion Gap (5 - 16) 11 BUN (7 - 17 mg/dL) 85 H Creatinine (0.5 - 1.0 mg/dL) 2.8 H Estimated GFR (>60 ml/min) 17 L Glucose (65 - 99 mg/dL) 154 H Calcium (8.4 - 10.2 mg/dL) 8.1 L Phosphorus (2.5 - 4.5 mg/dL) 5.2 H Magnesium (1.6 - 2.3 mg/dL) 1.6 Total Bilirubin (0.2 - 1.3 mg/dL) 0.6 AST (14 - 36 U/L) 33 ALT (9 - 52 U/L) 43 Albumin (3.5 - 5.0 g/dL) 2.1 L Coagulation PT (9.4 - 12.5 SEC) 14.8 H INR (0.90 - 1.19) 1.41 H Fibrinogen Activity (200 - 393 MG/DL) 356 D-Dimer High Sensitivty (0 - 243 ng/ml) 3236 H Hematology CBC w Diff Pending Cancelled WBC Pending Cancelled RBC Pending Cancelled Hgb Pending Cancelled Hct Pending Cancelled MCV Pending Cancelled MCH Pending Cancelled RDW Pending Cancelled Plt Count Pending Cancelled MPV Pending Cancelled Gran % Pending Lymphocytes % Pending Monocytes % Pending Eosinophils % Pending Basophils % Pending Absolute Granulocytes Pending Absolute Lymphocytes Pending Absolute Monocytes Pending Absolute Eosinophils Pending Absolute Basophils Pending PUBS MCHC Pending Cancelled Haptoglobin Pending 06/29 06/29 2316 2200 Hematology CBC w Diff MAN DIFF ORDERED Cancelled WBC (4.8 - 10.8 /CUMM) 13.7 H Cancelled RBC (4.20 - 5.40 /CUMM) 2.31 L Cancelled Hgb (12.0 - 16.0 G/DL) 6.9 *L Cancelled Hct (37 - 47 %) 20.5 L Cancelled MCV (81.0 - 99.0 FL) 88.8 Cancelled MCH (27.0 - 31.0 PG) 29.7 Cancelled RDW (11.5 - 14.5 %) 16.0 H Cancelled Plt Count (130 - 400 /CUMM) 233 Cancelled MPV (7.4 - 10.4 FL) 6.7 L Cancelled Gran % (42.2 - 75.2 %) 85.6 H Lymphocytes % (20.5 - 51.1 %) 7.6 L Monocytes % (1.7 - 9.3 %) 4.4 Eosinophils % (0 - 5 %) 2.1 Basophils % (0.0 - 2.0 %) 0.3 Absolute Granulocytes (1.4 - 6.5 /CUMM) 11.7 H Segmented Neutrophils (42.2 - 75.2 %) 90 H Absolute Lymphocytes (1.2 - 3.4 /CUMM) 1.0 L Lymphocytes (20.5 - 51.1 %) 5 L Monocytes (1.7 - 9.3 %) 2 Absolute Monocytes (0.10 - 0.60 /CUMM) 0.6 Eosinophils (0 - 5.0 %) 3 Absolute Eosinophils (0.0 - 0.7 /CUMM) 0.3 Absolute Basophils (0.0 - 0.2 /CUMM) 0 Platelet Estimate (ADEQUATE) ADEQUATE Polychromasia 1+ Poikilocytosis 1+ Basophilic Stippling 1+ Ovalocytes 1+ PUBS MCHC (33.0 - 37.0 G/DL) 33.5 Cancelled Other Body Source Fld Total RBCs Counted (%) 100 08 06/29 1405 0430 Chemistry Sodium (137 - 145 mmol/L) 141 Potassium (3.5 - 5.1 mmol/L) 4.4 Chloride (98 - 107 mmol/L) 107 Carbon Dioxide (22 - 30 mmol/L) 21 L Anion Gap (5 - 16) 13 BUN (7 - 17 mg/dL) 75 H Creatinine (0.5 - 1.0 mg/dL) 3.1 H Estimated GFR (>60 ml/min) 15 L Glucose (65 - 99 mg/dL) 197 H Calcium (8.4 - 10.2 mg/dL) 8.2 L Phosphorus (2.5 - 4.5 mg/dL) 5.4 H Magnesium (1.6 - 2.3 mg/dL) 1.7 Total Bilirubin (0.2 - 1.3 mg/dL) 0.3 AST (14 - 36 U/L) 18 ALT (9 - 52 U/L) 34 Lactate Dehydrogenase (313 - 618 U/L) 526 Albumin (3.5 - 5.0 g/dL) 2.2 L Hematology CBC w Diff NO MAN DIFF REQ NO MAN DIFF REQ WBC (4.8 - 10.8 /CUMM) 11.5 H 13.1 H RBC (4.20 - 5.40 /CUMM) 2.07 L 2.03 L Hgb (12.0 - 16.0 G/DL) 6.3 *L 6.1 *L Hct (37 - 47 %) 18.6 *L 18.4 *L MCV (81.0 - 99.0 FL) 90.1 90.5 MCH (27.0 - 31.0 PG) 30.4 30.2 RDW (11.5 - 14.5 %) 16.4 H 17.7 H Plt Count (130 - 400 /CUMM) 267 310 MPV (7.4 - 10.4 FL) 6.7 L 6.9 L Gran % (42.2 - 75.2 %) 82.3 H 82.1 H Lymphocytes % (20.5 - 51.1 %) 10.5 L 10.2 L Monocytes % (1.7 - 9.3 %) 4.6 4.4 Eosinophils % (0 - 5 %) 2.1 2.7 Basophils % (0.0 - 2.0 %) 0.5 0.6 Absolute Granulocytes (1.4 - 6.5 /CUMM) 9.5 H 10.8 H Absolute Lymphocytes (1.2 - 3.4 /CUMM) 1.2 1.3 Absolute Monocytes (0.10 - 0.60 /CUMM) 0.5 0.6 Absolute Eosinophils (0.0 - 0.7 /CUMM) 0.2 0.3 Absolute Basophils (0.0 - 0.2 /CUMM) 0.1 0.1 PUBS MCHC (33.0 - 37.0 G/DL) 33.7 33.3 06/28 06/28 2130 1420 Hematology CBC w Diff NO MAN DIFF REQ NO MAN DIFF REQ WBC (4.8 - 10.8 /CUMM) 13.0 H 11.3 H RBC (4.20 - 5.40 /CUMM) 2.34 L 2.15 L Hgb (12.0 - 16.0 G/DL) 7.0 *L 6.5 *L Hct (37 - 47 %) 21.3 L 19.3 *L MCV (81.0 - 99.0 FL) 91.0 89.7 MCH (27.0 - 31.0 PG) 29.7 30.1 RDW (11.5 - 14.5 %) 18.1 H 18.6 H Plt Count (130 - 400 /CUMM) 352 345 MPV (7.4 - 10.4 FL) 6.9 L 6.6 L Gran % (42.2 - 75.2 %) 80.4 H 80.5 H Lymphocytes % (20.5 - 51.1 %) 11.4 L 12.4 L Monocytes % (1.7 - 9.3 %) 4.2 4.3 Eosinophils % (0 - 5 %) 3.3 2.2 Basophils % (0.0 - 2.0 %) 0.7 0.6 Absolute Granulocytes (1.4 - 6.5 /CUMM) 10.4 H 9.1 H Absolute Lymphocytes (1.2 - 3.4 /CUMM) 1.5 1.4 Absolute Monocytes (0.10 - 0.60 /CUMM) 0.6 0.5 Absolute Eosinophils (0.0 - 0.7 /CUMM) 0.4 0.2 Absolute Basophils (0.0 - 0.2 /CUMM) 0.1 0.1 PUBS MCHC (33.0 - 37.0 G/DL) 32.7 L 33.6 06/28 06/28 1230 0400 Chemistry Sodium (137 - 145 mmol/L) 139 Potassium (3.5 - 5.1 mmol/L) 4.4 Chloride (98 - 107 mmol/L) 108 H Carbon Dioxide (22 - 30 mmol/L) 21 L Anion Gap (5 - 16) 10 BUN (7 - 17 mg/dL) 60 H Creatinine (0.5 - 1.0 mg/dL) 3.3 H Estimated GFR (>60 ml/min) 14 L BUN/Creatinine Ratio (7 - 25 %) 18.2 Phosphorus (2.5 - 4.5 mg/dL) 5.2 H Magnesium (1.6 - 2.3 mg/dL) 1.7 Hematology CBC w Diff NO MAN DIFF REQ WBC (4.8 - 10.8 /CUMM) 11.9 H RBC (4.20 - 5.40 /CUMM) 1.99 L Hgb (12.0 - 16.0 G/DL) 6.2 *L Hct (37 - 47 %) 18.5 *L MCV (81.0 - 99.0 FL) 93.1 MCH (27.0 - 31.0 PG) 31.3 H RDW (11.5 - 14.5 %) 16.9 H Plt Count (130 - 400 /CUMM) 369 MPV (7.4 - 10.4 FL) 7.1 L Gran % (42.2 - 75.2 %) 83.0 H Lymphocytes % (20.5 - 51.1 %) 8.5 L Monocytes % (1.7 - 9.3 %) 4.5 Eosinophils % (0 - 5 %) 3.6 Basophils % (0.0 - 2.0 %) 0.4 Absolute Granulocytes (1.4 - 6.5 /CUMM) 9.9 H Absolute Lymphocytes (1.2 - 3.4 /CUMM) 1.0 L Absolute Monocytes (0.10 - 0.60 /CUMM) 0.5 Absolute Eosinophils (0.0 - 0.7 /CUMM) 0.4 Absolute Basophils (0.0 - 0.2 /CUMM) 0.1 PUBS MCHC (33.0 - 37.0 G/DL) 33.6 Urines Urinalysis LIGHT H Urine Color (YEL,AMB,STR) YEL Urine Clarity (CLEAR) HAZY H Urine pH (5.0 - 8.0) 6.0 Ur Specific [place] (1.001 - 1.035) 1.020 Urine Protein (NEG,<30 MG/DL) 100 H Urine Ketones (NEG) NEG Urine Nitrite (NEG) NEG Urine Bilirubin (NEG) NEG Urine Urobilinogen (0.1 - 1.0 EU/dl) 0.2 Ur Leukocyte Esterase (NEG) MOD H Ur Microscopic SEDIMENT EXAMINED Urine RBC (0 - 5 /HPF) 1-3 Urine WBC (0 - 2 /HPF) 25-50 H Ur Epithelial Cells (NONE,FEW) MOD H Urine Bacteria (NEG/NONE) FEW H Urine Mucus (FEW,NONE) FEW Micro UA Comment BUDDING YEAST H Urine Hemoglobin (NEG) SMALL H Urine Glucose (N MG/DL) 250 H 06/27 2027 Hematology CBC w Diff NO MAN DIFF REQ WBC (4.8 - 10.8 /CUMM) 11.7 H RBC (4.20 - 5.40 /CUMM) 1.93 L Hgb (12.0 - 16.0 G/DL) 6.1 *L Hct (37 - 47 %) 18.0 *L MCV (81.0 - 99.0 FL) 93.7 MCH (27.0 - 31.0 PG) 31.7 H RDW (11.5 - 14.5 %) 17.4 H Plt Count (130 - 400 /CUMM) 357 MPV (7.4 - 10.4 FL) 6.9 L Gran % (42.2 - 75.2 %) 82.3 H Lymphocytes % (20.5 - 51.1 %) 9.2 L Monocytes % (1.7 - 9.3 %) 4.8 Eosinophils % (0 - 5 %) 3.2 Basophils % (0.0 - 2.0 %) 0.5 Absolute Granulocytes (1.4 - 6.5 /CUMM) 9.6 H Absolute Lymphocytes (1.2 - 3.4 /CUMM) 1.1 L Absolute Monocytes (0.10 - 0.60 /CUMM) 0.6 Absolute Eosinophils (0.0 - 0.7 /CUMM) 0.4 Absolute Basophils (0.0 - 0.2 /CUMM) 0.1 PUBS MCHC (33.0 - 37.0 G/DL) 33.8
[2017-06-30 12:21] LABS: GRANULOCYTE % 84.6 % (42.2-75.2)
--- NOTE | 2017-06-30 13:51 | PN- Gastroenterology ---
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 She also had some symptoms of UTI. On admission, WBC 47K (93S/5B) BUN/Cr 65/3.7, GFR 12, Na 134, K 3.0, HCO3 20, AG 18, nl lactate 1.6, TBil 0.4, alk phos 243, AST/ALT 42/ 52, albumin 2.9, globulin 3.9, troponin 0.23, proBNP 2520, INR 1.33, ABG 7.26/ 40/77 on 6L. U/A: >75 WBCs. Chest x-ray- opacity in the right hemithorax. Doppler of the right lower extremity was negative for DVT, but revealed a thrombus within the greater saphenous vein of the proximal thigh, extending to the saphenofemoral junction. The patient has been on numerous antibiotics and steroids here. She was seen by numerous consultants, including medicine, cardiology, endocrine, thoracic surgery, pulmonary, ID, & renal. She was found to have an empyema with complicated effusion with hemorrhagic fluid (06/13/17: 26,800 RBC, 12,750 WBC with 95% PMN), & underwent 06/23/17: right thoracotomy with drainage of empyema and decortication of RLL. 1400 mL of serosanguineous fluid was drained from the thoracic cavity with placement of 2 chest tubes. Additionally, she had a ? PE, with indeterminate 06/16/17: VQ scan. The patient was placed on Unasyn for H. influenza, as she had positive blood cultures. She received numerous transfusions of PRBC. Again, she did have serosanguineous fluid coming out of the chest tube, but did have one stool positive for occult blood, prompting the GI consult. She was on aspirin 325 mg po daily from 06/25/17-06/28/17. There were no NSAIDS. I did not see any A/C therapy in the computer, but I later found out the patient was on a course of IV heparin earlier this admission. *She had received a total of 8u PRBC from -06/29/17. There have been no coags sent since 06/12/17. The patient denied any vaginal spotting or gross hematuria. She did have intermittent hemoptysis and coughed up some blood while I was in the room during the 06/29/17: GI consult. She was very nervous. She denied any GERD, odynophagia, dysphagia, or definite early satiety, although she was somewhat unsure, regarding the latter. She denied any abdominal pain, hematemesis, or melena. She denied any diarrhea, constipation, obstipation, tenesmus, or rectal bleeding. She never had an EGD or colonoscopy. There is no family history of GI CA, GI disease, or inherited liver disease. She tolerated solids po today. She currently denied any fevers, chills, jaundice, or significant weight loss. 10/13/16: SPEP- no monoclonal gammopathy, with elevated acute phase proteins. 06/12/17: PT 13.9, INR 1.33, PTT 71 06/12/17: troponin 0.23-> 0.25-> 0.18 06/28/17: U/A- pyuria, without gross hematuria. 06/29/17: WBC 11.5, H/H 6.3/18.6 (*prior to 7th u PRBC), MCV 90.1, RDW 16.4, PLT 267, glucose 197, BUN/Cr 75/3.1, GFR 15, Na 141, K 4.4, HCO3 21, AG 13, Mg 1.7, Ca 8.2, PO4 5.4, alb 2.2, TBil 0.3, AST 18, ALT 34 06/23/17: EKG- NSR @ 83, RBBB, LAHB, multiple APC, LVH, PRWP (without change from prior EKG) Please see [facility] for numerous imaging studies obtained from -06/29/17. 06/29/17: CT ABD & PELVIS W/O IV CONTRAST; CT CHEST WO IV CONTRAST- 1. *Limited noncontrast study. The [id number] is also limited. The lateral aspects of the patient's body are excluded from the field of view secondary to the large body habitus. In addition, there is significant artifact related to the patient's arms which are at their sides. 2. No definite evidence for an intrathoracic, abdominal or pelvic hematoma. *An active arterial bleed cannot be assessed on this noncontrast study. 3. Decrease in size of a right-sided hydropneumothorax compared to the prior chest CT. A chest tube in position. 06/29/17: XRY-PORTABLE CHEST XRAY- Persistent consolidation of right middle and right lower lobes and unchanged appearance of the loculated right pleural effusion with thoracostomy tube in place. I was not convinced at the time of the 06/29/17: GI consult that the primary source of the patient's severe multifactorial anemia requiring 8u PRBC to date was GI in nature. The patient only had brown, OB positive stool. I would have expected reddish or maroon blood per rectum, melena, or hematemesis for presumed active GI bleeding, to account for blood loss of this magnitude. Coags had not been checked since 06/12/17. I doubt DIC with normal platelet count. I also doubt hemolysis with normal TBil. The patient's initial chest tap was bloody & she just had some mild hemoptysis. The 06/29/17: CT CAP was somewhat limited in looking for active bleeding without IV contrast, which was limited by the patient's CKD. No gross retroperitoneal bleeding was seen. The patient was extremely anxious. The risks and benefits of EGD were discussed with the patient, and she reluctantly agreed to proceed with this tomorrow, on 06/30/17. ASA is on hold. 06/29/17: LDH 526. 06/30/17: WBC 13.0, H/H 7.8/23.2 (post 9th u PRBC), glucose 154, BUN/Cr 85/2.8, GFR 17, Na 141, K 4.1, HCO3 20, AG 11, Ca 8.1, PO4 5.2, alb 2.1, TBil 0.6, AST 33, ALT 43, PT 14.8, INR 1.41, nl fibrinogen 356, 06/30/17: *Haptoglobin- pending. *As of 06/30/17, the patient remained hemodynamically stable and afebrile. Multiple consultants' notes (medicine, endocrine, pulmonary, ID, CTS, renal, etc.) appreciated. She had received a total of 9u PRBC this admission, to date. She had no new complaints overnight. There was no overt hematemesis, rectal bleeding, or melena, just intermittent OB positive brown stool. She denied any abdominal pain, chest pain, or increased shortness of breath. Her right-sided chest tube had a small amount of serosanguineous output, without bright red blood. She denied any fevers, chills, or jaundice. IV Protonix 40 mg daily had been added 06/30/17. She remained on IV Unasyn & was NPO for EGD. She was hungry. *SUGGEST: *NPO for EGD later today 06/30/17. *Continue empiric Protonix 40 mg IV daily.* Check CBC Q8-12h for now. T&C 2u PRBC. *Keep Hgb > 7 (no documented ASHD). Supplemental O2. Strict I/O's. *Check peripheral smear. *Await 06/30/17: haptoglobin. *Consider checking FDP. *Follow-up with pulmonary & CTS for potential non-GI sources of bleeding. If EGD negative, consideration for eventual baseline colonoscopy, but not certain if patient will comply. DVT prophylaxis with mechanical ALPS. Further GI recommendations to follow, depending on clinical course. The above was discussed with the medical housestaff in depth. I discussed the case with Dr. Munoz, Dr. Bartlett, & Dr. Rebolledo. Problem List: 1. Acute blood loss anemia 2. Occult blood positive stool 3. Empyema 4. Hemoptysis 5. CHRONIC RENAL FAILURE Subjective Subjective: 06/29/17: LDH 526. 06/30/17: WBC 13.0, H/H 7.8/23.2 (post 9th u PRBC), glucose 154, BUN/Cr 85/2.8, GFR 17, Na 141, K 4.1, HCO3 20, AG 11, Ca 8.1, PO4 5.2, alb 2.1, TBil 0.6, AST 33, ALT 43, PT 14.8, INR 1.41, nl fibrinogen 356, 06/30/17: *Haptoglobin- pending. *As of 06/30/17, the patient remained hemodynamically stable and afebrile. Multiple consultants' notes (medicine, endocrine, pulmonary, ID, CTS, renal, etc.) appreciated. She had received a total of 9u PRBC this admission, to date. She had no new complaints overnight. There was no overt hematemesis, rectal bleeding, or melena, just intermittent OB positive brown stool. She denied any abdominal pain, chest pain, or increased shortness of breath. Her right-sided chest tube had a small amount of serosanguineous output, without bright red blood. She denied any fevers, chills, or jaundice. IV Protonix 40 mg daily had been added 06/30/17. She remained on IV Unasyn & was NPO for EGD. She was hungry. Review of Systems: Full 14 point review of systems otherwise noncontributory, and as above. Review of Systems Constitutional: Reports: malaise. Denies: chills, diaphoresis, fever, weakness, unexplained weight loss. EENTM: Denies: blurred vision, double vision, visual changes, eye pain, eye drainage, eye tearing, icterus, ear discharge, ear pain, ear redness, hearing changes, nasal congestion, epistaxis, nasal pain, throat pain, throat swelling, mouth pain, tooth pain. Cardiovascular: Reports: peripheral edema (trace). Denies: chest pain, edema, orthopena, palpitations, syncope. Respiratory: Reports: cough- improved, hemoptysis- improved. Denies: orthopnea, short of breath, sputum production, stridor, wheezing. GI: Denies: abdominal pain, bloating, constipation, diarrhea, distention, bowel incontinence, melena, nausea, bloody stool, changes in stool, vomiting, steatorrhea. Genitourinary: Denies: discharge, dysuria, frequency, hematuria, hesitation, nocturia, pain, urgency. Musculoskeletal: Denies: back pain, gout, joint pain, joint swelling, muscle pain, muscle stiffness, neck pain. Skin: Denies: cysts, change in skin color, change in hair/nails, dryness, erythema, jaundice, lesions, lymphangitis, lumps, moles, rash. Neurological/Psychological: Reports: anxiety, depressed, paresthesia (hx neuropathy). Denies: ataxia, cognitive dysfunction, confusion, dementia, emotional problems, headache, numbness, pre-existing deficit, petit mal seizures, tingling, tremors, tonic-clonic seizures, unable to move lower ext, unable to move upper ext, weakness. Hematologic/Endocrine: Denies: bruising, bleeding, polyuria, polydipsia. Immunologic/Allergic: Denies: splenectomy, HIV/AIDS, lymphadenopathy. All Other Systems: Reviewed and Negative Objective Vital Signs and I&Os Vital Signs Date Time Temp Pulse Resp B/P B/P Pulse O2 O2 Flow FiO2 Mean Ox Delivery Rate 06/30 1100 18 95 Room Air 06/30 0833 94 Nasal 2.0L Cannula 06/30 0823 19 95 Room Air 06/30 0800 97.2 55 20 114/58 97 Room Air 06/30 0000 98 Nasal 2.0L Cannula 06/29 2314 97.3 68 16 138/40 95 Nasal 2.0L Cannula 06/29 2013 98 Nasal 2.0L Cannula 06/29 1999 98 Nasal 2.0L Cannula 06/29 1600 Nasal 2.0L Cannula 06/29 1600 96.9 70 20 142/62 97 Nasal 2.0L Cannula Intake & Output 06/30 1600 06/30 0400 06/29 1600 06/29 0400 06/28 1600 06/28 0400 Intake Total 350 2030 1930 1280 2108 660 Output Total 625 1330 1867 1000 1943 Balance -275 700 63 280 165 660 Intake, Blood 350 690 340 370 389 Product Intake, IV 260 130 130 519 450 Intake, Oral 0 1080 1621 196 7088 210 Number 2 6 4 4 0 Bowel Movements Output, Chest 25 30 17 43 Tube Drainage Output, Urine 600 1300 1850 1000 1900 Patient 253 lb 246 lb 215 lb 232 lb Weight Weight Bed scale Bed scale Measurement Method Physical Exam: Well-developed, somewaht malnourished, chronically ill-appearing obese female, less anxious, in no apparent distress. Sclera anicteric. Conjunctiva slightly pale. Oropharynx clear. No oral thrush. No aphthous ulcers. Edentulous. There is no adenopathy, thyromegaly, JVD, or HJR. No peripheral stigmata of inflammatory bowel disease or chronic liver disease on exam. No spiders on the anterior chest wall. Breast & pelvic exams: API. No CVA tenderness. No spine tenderness. Lungs: clear to A&P, with decreased BS at right base (chest tube on right) & slightly prolonged expiratory phase. No wheezing, rales, or rhonchi. Heart exam: regular rate rhythm, S1 and S2, without any murmur. Abdominal exam: normal bowel sounds, soft obese belly, nontender, without guarding or rebound. No definite mass or organomegaly. No fluid shift. No pulsatile mass. No epigastric bruit. Repeat digital rectal exam 06/29/17 deferred per patient (* brown OB+ stool API on 06/28/17). Extremities: without cyanosis or clubbing. Post left BKA with prosthetic LLE. RLE with stasis dermatitis changes & 1+ edema , post amputation of right 1st & 3rd toes. No palpable cords. DJD. No palmar erythema. No Dupuytren's contractures. Distal pulses 1+ bilaterally. DTRs 2+ bilaterally. Alert and oriented x 3. Left handed. Motor 4/5 B/L. No tremor. No asterixis. A detailed exam for peripheral neuropathy was deferred, but is present by history. Current Medications: Current Medications Sig/Suleman Start time Last Medication Dose Route Stop Time Status Admin Acetaminophen 1,000 MG Q6P PRN 06/19 1130 AC 06/25 N/A 1 UNIT IV 1527 Albuterol Sulfate 3 ML EVERY 4 HRS/AWAKE 06/26 1234 AC 06/30 INH 0818 Ampicillin Sodium/ 3,000 MG Q8H 06/23 1600 AC 06/30 Sulbactam Sodium IV 0849 Sodium Chloride 100 ML Atorvastatin Calcium 40 MG 1700 06/15 1700 AC 06/29 PO 1651 Calcium Carbonate 500 MG DAILY 06/21 1000 AC 06/30 PO 0855 Chlorhexidine 1 GM .STK-MED ONE 06/30 1507 DC Gluconate TOP 06/30 1508 Dextrose/Sodium 1,000 ML Q13H 06/30 0800 DC Chloride IV Dextrose/Water 1,000 ML Q13H 06/30 0815 AC 06/30 IV 0849 Docusate Sodium 100 MG BID 06/12 2359 AC 06/28 PO 0853 Hydromorphone HCl 2 MG Q4P PRN 06/27 1115 AC 06/30 IV 0559 Hydromorphone HCl 1.2 MG Q4-6 PRN PRN 06/24 1100 AC 06/27 IV 0522 Insulin Aspart 0 Q4 06/30 1000 AC 06/30 SC 1309 Insulin Aspart 0 TIDAC/HS 06/24 1200 DC 06/29 SC 1651 Insulin Detemir 25 UNITS BID 06/28 2200 DC 06/29 SC 2112 Lidocaine 50 ML .STK-MED ONE 06/30 1507 SD TOP 06/30 1508 Lidocaine 1 PAT DAILY@1700 06/20 1700 AC 06/27 EXT 1644 Melatonin 5 MG AT BEDTIME 06/21 2200 AC 06/29 PO 2112 Nitroglycerin 0.5 GM Q6P PRN 06/15 1830 AC TOP Oxycodone HCl 40 MG Q12 06/25 2200 AC 06/30 PO 0850 Oxycodone HCl 10 MG Q4P PRN 06/23 1730 AC 06/25 PO 0944 Oxycodone HCl 20 MG Q4P PRN 06/23 1730 AC 06/27 PO 0257 Pantoprazole Sodium 40 MG DAILY 06/30 1000 AC 06/30 IV 0855 Pregabalin 75 MG BID 06/13 2200 AC 06/30 PO 0850 Senna/Docusate Sodium 1 TAB BID 06/27 1145 AC 06/28 PO 0853 Sodium Chloride 2 SPRAY Q4P PRN 06/27 0015 AC 06/27 TREY 0209 Tiotropium [place] 1 PUF DAILY 06/14 1000 AC 06/30 INH 0855 Zinc Oxide 1 JEVON BID 06/30 1248 TOP Results Pertinent Lab Results: Laboratory Tests 06/30 06/30 06/30 1054 0524 0000 Chemistry Sodium (137 - 145 mmol/L) 141 Potassium (3.5 - 5.1 mmol/L) 4.1 Chloride (98 - 107 mmol/L) 110 H Carbon Dioxide (22 - 30 mmol/L) 20 L Anion Gap (5 - 16) 11 BUN (7 - 17 mg/dL) 85 H Creatinine (0.5 - 1.0 mg/dL) 2.8 H Estimated GFR (>60 ml/min) 17 L Glucose (65 - 99 mg/dL) 154 H Calcium (8.4 - 10.2 mg/dL) 8.1 L Phosphorus (2.5 - 4.5 mg/dL) 5.2 H Magnesium (1.6 - 2.3 mg/dL) 1.6 Total Bilirubin (0.2 - 1.3 mg/dL) 0.6 AST (14 - 36 U/L) 33 ALT (9 - 52 U/L) 43 Albumin (3.5 - 5.0 g/dL) 2.1 L Coagulation PT (9.4 - 12.5 SEC) 14.8 H INR (0.90 - 1.19) 1.41 H Fibrinogen Activity (200 - 393 MG/DL) 356 D-Dimer High Sensitivty (0 - 243 ng/ml) 3236 H Hematology CBC w Diff NO MAN DIFF REQ Cancelled WBC (4.8 - 10.8 /CUMM) 13.0 H Cancelled RBC (4.20 - 5.40 /CUMM) 2.64 L Cancelled Hgb (12.0 - 16.0 G/DL) 7.8 L Cancelled Hct (37 - 47 %) 23.2 L Cancelled MCV (81.0 - 99.0 FL) 87.7 Cancelled MCH (27.0 - 31.0 PG) 29.7 Cancelled RDW (11.5 - 14.5 %) 16.3 H Cancelled Plt Count (130 - 400 /CUMM) 249 Cancelled MPV (7.4 - 10.4 FL) 6.9 L Cancelled Gran % (42.2 - 75.2 %) 84.6 H Lymphocytes % (20.5 - 51.1 %) 9.6 L Monocytes % (1.7 - 9.3 %) 3.7 Eosinophils % (0 - 5 %) 1.8 Basophils % (0.0 - 2.0 %) 0.3 Absolute Granulocytes (1.4 - 6.5 /CUMM) 11.0 H Absolute Lymphocytes (1.2 - 3.4 /CUMM) 1.2 Absolute Monocytes (0.10 - 0.60 /CUMM) 0.5 Absolute Eosinophils (0.0 - 0.7 /CUMM) 0.2 Absolute Basophils (0.0 - 0.2 /CUMM) 0 PUBS MCHC (33.0 - 37.0 G/DL) 33.9 Cancelled Haptoglobin Pending 06/29 06/29 2316 2200 Hematology CBC w Diff MAN DIFF ORDERED Cancelled WBC (4.8 - 10.8 /CUMM) 13.7 H Cancelled RBC (4.20 - 5.40 /CUMM) 2.31 L Cancelled Hgb (12.0 - 16.0 G/DL) 6.9 *L Cancelled Hct (37 - 47 %) 20.5 L Cancelled MCV (81.0 - 99.0 FL) 88.8 Cancelled MCH (27.0 - 31.0 PG) 29.7 Cancelled RDW (11.5 - 14.5 %) 16.0 H Cancelled Plt Count (130 - 400 /CUMM) 233 Cancelled MPV (7.4 - 10.4 FL) 6.7 L Cancelled Gran % (42.2 - 75.2 %) 85.6 H Lymphocytes % (20.5 - 51.1 %) 7.6 L Monocytes % (1.7 - 9.3 %) 4.4 Eosinophils % (0 - 5 %) 2.1 Basophils % (0.0 - 2.0 %) 0.3 Absolute Granulocytes (1.4 - 6.5 /CUMM) 11.7 H Segmented Neutrophils (42.2 - 75.2 %) 90 H Absolute Lymphocytes (1.2 - 3.4 /CUMM) 1.0 L Lymphocytes (20.5 - 51.1 %) 5 L Monocytes (1.7 - 9.3 %) 2 Absolute Monocytes (0.10 - 0.60 /CUMM) 0.6 Eosinophils (0 - 5.0 %) 3 Absolute Eosinophils (0.0 - 0.7 /CUMM) 0.3 Absolute Basophils (0.0 - 0.2 /CUMM) 0 Platelet Estimate (ADEQUATE) ADEQUATE Polychromasia 1+ Poikilocytosis 1+ Basophilic Stippling 1+ Ovalocytes 1+ PUBS MCHC (33.0 - 37.0 G/DL) 33.5 Cancelled Other Body Source Fld Total RBCs Counted (%) 100 06/29 06/29 1405 0430 Chemistry Sodium (137 - 145 mmol/L) 141 Potassium (3.5 - 5.1 mmol/L) 4.4 Chloride (98 - 107 mmol/L) 107 Carbon Dioxide (22 - 30 mmol/L) 21 L Anion Gap (5 - 16) 13 BUN (7 - 17 mg/dL) 75 H Creatinine (0.5 - 1.0 mg/dL) 3.1 H Estimated GFR (>60 ml/min) 15 L Glucose (65 - 99 mg/dL) 197 H Calcium (8.4 - 10.2 mg/dL) 8.2 L Phosphorus (2.5 - 4.5 mg/dL) 5.4 H Magnesium (1.6 - 2.3 mg/dL) 1.7 Total Bilirubin (0.2 - 1.3 mg/dL) 0.3 AST (14 - 36 U/L) 18 ALT (9 - 52 U/L) 34 Lactate Dehydrogenase (313 - 618 U/L) 526 Albumin (3.5 - 5.0 g/dL) 2.2 L Hematology CBC w Diff NO MAN DIFF REQ NO MAN DIFF REQ WBC (4.8 - 10.8 /CUMM) 11.5 H 13.1 H RBC (4.20 - 5.40 /CUMM) 2.07 L 2.03 L Hgb (12.0 - 16.0 G/DL) 6.3 *L 6.1 *L Hct (37 - 47 %) 18.6 *L 18.4 *L MCV (81.0 - 99.0 FL) 90.1 90.5 MCH (27.0 - 31.0 PG) 30.4 30.2 RDW (11.5 - 14.5 %) 16.4 H 17.7 H Plt Count (130 - 400 /CUMM) 267 310 MPV (7.4 - 10.4 FL) 6.7 L 6.9 L Gran % (42.2 - 75.2 %) 82.3 H 82.1 H Lymphocytes % (20.5 - 51.1 %) 10.5 L 10.2 L Monocytes % (1.7 - 9.3 %) 4.6 4.4 Eosinophils % (0 - 5 %) 2.1 2.7 Basophils % (0.0 - 2.0 %) 0.5 0.6 Absolute Granulocytes (1.4 - 6.5 /CUMM) 9.5 H 10.8 H Absolute Lymphocytes (1.2 - 3.4 /CUMM) 1.2 1.3 Absolute Monocytes (0.10 - 0.60 /CUMM) 0.5 0.6 Absolute Eosinophils (0.0 - 0.7 /CUMM) 0.2 0.3 Absolute Basophils (0.0 - 0.2 /CUMM) 0.1 0.1 PUBS MCHC (33.0 - 37.0 G/DL) 33.7 33.3 06/28 06/28 2130 1420 Hematology CBC w Diff NO MAN DIFF REQ NO MAN DIFF REQ WBC (4.8 - 10.8 /CUMM) 13.0 H 11.3 H RBC (4.20 - 5.40 /CUMM) 2.34 L 2.15 L Hgb (12.0 - 16.0 G/DL) 7.0 *L 6.5 *L Hct (37 - 47 %) 21.3 L 19.3 *L MCV (81.0 - 99.0 FL) 91.0 89.7 MCH (27.0 - 31.0 PG) 29.7 30.1 RDW (11.5 - 14.5 %) 18.1 H 18.6 H Plt Count (130 - 400 /CUMM) 352 345 MPV (7.4 - 10.4 FL) 6.9 L 6.6 L Gran % (42.2 - 75.2 %) 80.4 H 80.5 H Lymphocytes % (20.5 - 51.1 %) 11.4 L 12.4 L Monocytes % (1.7 - 9.3 %) 4.2 4.3 Eosinophils % (0 - 5 %) 3.3 2.2 Basophils % (0.0 - 2.0 %) 0.7 0.6 Absolute Granulocytes (1.4 - 6.5 /CUMM) 10.4 H 9.1 H Absolute Lymphocytes (1.2 - 3.4 /CUMM) 1.5 1.4 Absolute Monocytes (0.10 - 0.60 /CUMM) 0.6 0.5 Absolute Eosinophils (0.0 - 0.7 /CUMM) 0.4 0.2 Absolute Basophils (0.0 - 0.2 /CUMM) 0.1 0.1 PUBS MCHC (33.0 - 37.0 G/DL) 32.7 L 33.6 06/28 06/28 1230 0400 Chemistry Sodium (137 - 145 mmol/L) 139 Potassium (3.5 - 5.1 mmol/L) 4.4 Chloride (98 - 107 mmol/L) 108 H Carbon Dioxide (22 - 30 mmol/L) 21 L Anion Gap (5 - 16) 10 BUN (7 - 17 mg/dL) 60 H Creatinine (0.5 - 1.0 mg/dL) 3.3 H Estimated GFR (>60 ml/min) 14 L BUN/Creatinine Ratio (7 - 25 %) 18.2 Phosphorus (2.5 - 4.5 mg/dL) 5.2 H Magnesium (1.6 - 2.3 mg/dL) 1.7 Hematology CBC w Diff NO MAN DIFF REQ WBC (4.8 - 10.8 /CUMM) 11.9 H RBC (4.20 - 5.40 /CUMM) 1.99 L Hgb (12.0 - 16.0 G/DL) 6.2 *L Hct (37 - 47 %) 18.5 *L MCV (81.0 - 99.0 FL) 93.1 MCH (27.0 - 31.0 PG) 31.3 H RDW (11.5 - 14.5 %) 16.9 H Plt Count (130 - 400 /CUMM) 369 MPV (7.4 - 10.4 FL) 7.1 L Gran % (42.2 - 75.2 %) 83.0 H Lymphocytes % (20.5 - 51.1 %) 8.5 L Monocytes % (1.7 - 9.3 %) 4.5 Eosinophils % (0 - 5 %) 3.6 Basophils % (0.0 - 2.0 %) 0.4 Absolute Granulocytes (1.4 - 6.5 /CUMM) 9.9 H Absolute Lymphocytes (1.2 - 3.4 /CUMM) 1.0 L Absolute Monocytes (0.10 - 0.60 /CUMM) 0.5 Absolute Eosinophils (0.0 - 0.7 /CUMM) 0.4 Absolute Basophils (0.0 - 0.2 /CUMM) 0.1 PUBS MCHC (33.0 - 37.0 G/DL) 33.6 Urines Urinalysis LIGHT H Urine Color (YEL,AMB,STR) YEL Urine Clarity (CLEAR) HAZY H Urine pH (5.0 - 8.0) 6.0 Ur Specific [place] (1.001 - 1.035) 1.020 Urine Protein (NEG,<30 MG/DL) 100 H Urine Ketones (NEG) NEG Urine Nitrite (NEG) NEG Urine Bilirubin (NEG) NEG Urine Urobilinogen (0.1 - 1.0 EU/dl) 0.2 Ur Leukocyte Esterase (NEG) MOD H Ur Microscopic SEDIMENT EXAMINED Urine RBC (0 - 5 /HPF) 1-3 Urine WBC (0 - 2 /HPF) 25-50 H Ur Epithelial Cells (NONE,FEW) MOD H Urine Bacteria (NEG/NONE) FEW H Urine Mucus (FEW,NONE) FEW Micro UA Comment BUDDING YEAST H Urine Hemoglobin (NEG) SMALL H Urine Glucose (N MG/DL) 250 H 06/27 2027 Hematology CBC w Diff NO MAN DIFF REQ WBC (4.8 - 10.8 /CUMM) 11.7 H RBC (4.20 - 5.40 /CUMM) 1.93 L Hgb (12.0 - 16.0 G/DL) 6.1 *L Hct (37 - 47 %) 18.0 *L MCV (81.0 - 99.0 FL) 93.7 MCH (27.0 - 31.0 PG) 31.7 H RDW (11.5 - 14.5 %) 17.4 H Plt Count (130 - 400 /CUMM) 357 MPV (7.4 - 10.4 FL) 6.9 L Gran % (42.2 - 75.2 %) 82.3 H Lymphocytes % (20.5 - 51.1 %) 9.2 L Monocytes % (1.7 - 9.3 %) 4.8 Eosinophils % (0 - 5 %) 3.2 Basophils % (0.0 - 2.0 %) 0.5 Absolute Granulocytes (1.4 - 6.5 /CUMM) 9.6 H Absolute Lymphocytes (1.2 - 3.4 /CUMM) 1.1 L Absolute Monocytes (0.10 - 0.60 /CUMM) 0.6 Absolute Eosinophils (0.0 - 0.7 /CUMM) 0.4 Absolute Basophils (0.0 - 0.2 /CUMM) 0.1 PUBS MCHC (33.0 - 37.0 G/DL) 33.8 Imaging/Other Studies: 06/23/17: EKG- NSR @ 83, RBBB, LAHB, multiple APC, LVH, PRWP (without change from prior EKG) Please see [employer] for numerous imaging studies obtained from -06/29/17. 06/29/17: CT ABD & PELVIS W/O IV CONTRAST; CT CHEST WO IV CONTRAST- 1. *Limited noncontrast study. The [id number] is also limited. The lateral aspects of the patient's body are excluded from the field of view secondary to the large body habitus. In addition, there is significant artifact related to the patient's arms which are at their sides. 2. No definite evidence for an intrathoracic, abdominal or pelvic hematoma. *An active arterial bleed cannot be assessed on this noncontrast study. 3. Decrease in size of a right-sided hydropneumothorax compared to the prior chest CT. A chest tube in position. 06/29/17: XRY-PORTABLE CHEST XRAY- Persistent consolidation of right middle and right lower lobes and unchanged appearance of the loculated right pleural effusion with thoracostomy tube in place.
--- NOTE | 2017-06-30 16:00 | Proc Note Endoscopy ---
Endoscopy Procedure Medical History: unchanged Mental Status: alert/oriented Heart/Lung Eval Prior to Sedation: within normal limits Candidate for Sedation? Yes Procedure Date: 06/30/17 Procedure Type: EGD Director Of Retail Analytics: MARY AGUDELO MD ASA Classification: IV (IV-E) Indications: INDX: (*Please refer to extensive GI consult of 06/29/17). 61 y/o female with numerous comorbidities, multifactorial anemia, & brown OB+ stool. Instrument: diagnostic gastroscope Meds Received: MAC Patient's Tolerance: good Complications: none Extent Reached: D3 Procedure: Baseline upper endoscopy to the third portion of the duodenum, was performed by the bedside in the ICU, room #110, with the Olympus high definition videoendoscope, after obtaining informed consent from the patient, with the cardiac surgeon and pulse oximeter, with the assistance of the GI RNs, Porsha, & with Dr. Daniel, of [facility]. The patient was edentulous. A mouthpiece was placed in the usual fashion to protect the patient' s oral cavity. The patient's throat was sprayed with lidocaine. The patient was maintained in the supine position (right chest tube & left BKA), and sedated by [facility]. At this point, the endoscope was advanced from the mouth into the esophagus, using direct visualization technique. The vocal cords appeared normal. The proximal esophageal mucosa appeared normal. There were no esophageal rings, webs, lesions, strictures, or ulcers. There was no monilia or vesicles. There was no esophageal ribbing. There was a superficial non- bleeding esophageal erosion at 35 cm, which was left intact. The Z line was minimally irregular at 40 cm, but no ectopic islands or gross Jackson's esophagus were seen. There was some mild distal esophageal erythema and inflammation, consistent with 1+ nonerosive distal GERD. Biopsies were deferred. There was a scant sliding hiatal hernia pouch, without any Freddie erosions. There were no esophageal or gastric varices, nor any Bhavya Archibald tear. The fernandez of the stomach distended relatively normally with air insufflation. Direct and retroflexed views of the stomach were performed. There was nothing endoscopically to suggest gastroparesis or portal gastropathy. There were no bezoars. The mucosa of the gastric cardia was normal, except for some mild inflammation noted on retroflexion, just below the Z line. The mucosa of the gastric fundus, lesser curvature, incisura, body, and antrum appeared normal, without any gastric ulcers or gastric lesions, aside from some minimal prepyloric erythema. The pylorus was patent, without any gastric outlet obstruction or channel ulcer. The duodenal bulb, duodenal sweep, & third portion of the duodenum appeared normal, without any duodenal ulcers, distal ulcerations, or angiodysplasias. I was not able to see the ampulla with the direct-viewing scope. The folds of the second & third portions of the duodenum were normal in caliber, without any flattening, nodularity, scalloping, or mosaic pattern. Bile was seen in the duodenum. No active upper GI bleeding was seen. The patient tolerated the procedure well. *Documenting photographs were obtained and placed inside the patient's chart. Impression: 1. Superficial nonbleeding esophageal erosion at 35 cm, left intact. 2. 1+ nonerosive distal GERD with minimally irregular Z line at 40 cm, left intact. 3. Scant sliding hiatal hernia pouch, without any Freddie erosions. 4. Mildly inflamed gastric cardia, just below Z line on retroflexion, left intact. 5. Minimal prepyloric antral erythema, left intact. Recommendations: Clears po as tolerated. *Continue empiric Protonix 40 mg IV daily.*Check CBC Q8- 12h for now. T&C 2u PRBC. *Keep Hgb > 7 (no documented ASHD). Supplemental O2. Strict I/O's. *Check peripheral smear. *Await 06/30/17: haptoglobin. *Consider checking FDP (nl fibrinogen). *Follow-up with pulmonary & CTS for potential non- GI sources of bleeding. *As no active UGI bleeding seen on 06/30/17: EGD, advise giving 1 gallon of GoLytely on Thu07/01/17 at 2 p.m., over 4-5 hours, then NPO after 11:59 p.m. on Thu07/01/17, for colonoscopy on 07/02/17. The risks and benefits of colonoscopy were discussed with the patient, and she agreed to proceed. Informed consent for colonoscopy was obtained from the patient. I am still not certain that the majority of the patient's profound anemia is from GI bleeding. If colonoscopy negative, consideration for outpatient PillCam. DVT prophylaxis with mechanical ALPS. Will defer to CTS & ID regarding timing of pulling of right-sided chest tube & duration of antibiotics for H. flu bacteremia. Further GI recommendations to follow, depending on clinical course. The above was discussed with the medical housestaff in depth. I also discussed the case with Dr. Munoz, Dr. Bartlett, & Dr. Rebolledo. CC: Dhruv RODAS,Carlos Grayson; James RODAS,Rodrigue Brandon; Louie RODAS,Thien Denise; Alexander RODAS,Steven Ashby; Amaury White MD,Steven Brandon; Saúl RODAS,Brandi Lucas MD PHD,Carlos Castillo
[2017-06-30 17:47] LABS: ABSOLUTE BASOPHIL COUNT 0 /CUMM (0.0-0.2); ABSOLUTE EOSINOPHIL COUNT 0.3 /CUMM (0.0-0.7); ABSOLUTE LYMPH COUNT 1.2 /CUMM (1.2-3.4); ABSOLUTE MONOCYTE COUNT 0.6 /CUMM (0.10-0.60); BASOPHIL % 0.4 % (0.0-2.0); EOSINOPHIL % 2.4 % (0-5); GRANULOCYTE % 82.6 % (42.2-75.2); HEMATOCRIT 22.5 % (37-47); MEAN CORPUSCULAR HGB 29.7 PG (27.0-31.0); MEAN CORPUSCULAR HGB CONC 33.7 G/DL (33.0-37.0); MEAN CORPUSCULAR VOLUME 88.3 FL (81.0-99.0); MEAN PLATELET VOLUME 6.7 FL (7.4-10.4); PLATELET COUNT 246 /CUMM (130-400); RBC DISTRIBUTION WIDTH 16.7 % (11.5-14.5); RED BLOOD CELL CT 2.55 /CUMM (4.20-5.40); WHITE BLOOD CELL COUNT 12.1 /CUMM (4.8-10.8)
--- NOTE | 2017-06-30 19:13 | Event Note ---
Event Note Event Note: Patient had a large melonotic bowel movement. Called and spoke to Dr. Archibald. Recomendation was to keep her Npo at midnight and prep her with 1/[address] Archibald will see if he can fit her in for colonoscopy tomorrow.
[2017-06-30 20:07] VITALS: BP 130/54
[2017-07-01] VITALS: BP 100/48
[2017-07-01 01:02] LABS: ABSOLUTE BASOPHIL COUNT 0.1 /CUMM (0.0-0.2); ABSOLUTE EOSINOPHIL COUNT 0.3 /CUMM (0.0-0.7); ABSOLUTE GRANULOCYTE CT 9.9 /CUMM (1.4-6.5); ABSOLUTE LYMPH COUNT 1.1 /CUMM (1.2-3.4); ABSOLUTE MONOCYTE COUNT 0.6 /CUMM (0.10-0.60); BASOPHIL % 0.5 % (0.0-2.0); EOSINOPHIL % 2.5 % (0-5); GRANULOCYTE % 82.6 % (42.2-75.2); HEMATOCRIT 21.2 % (37-47); MEAN CORPUSCULAR HGB 29.7 PG (27.0-31.0); MEAN CORPUSCULAR HGB CONC 33.7 G/DL (33.0-37.0); MEAN CORPUSCULAR VOLUME 88.1 FL (81.0-99.0); MEAN PLATELET VOLUME 6.5 FL (7.4-10.4); PLATELET COUNT 255 /CUMM (130-400); RBC DISTRIBUTION WIDTH 16.6 % (11.5-14.5); RED BLOOD CELL CT 2.41 /CUMM (4.20-5.40); WHITE BLOOD CELL COUNT 11.9 /CUMM (4.8-10.8)
[2017-07-01 05:02] LABS: ABSOLUTE BASOPHIL COUNT 0.1 /CUMM (0.0-0.2); ABSOLUTE EOSINOPHIL COUNT 0.4 /CUMM (0.0-0.7); ABSOLUTE GRANULOCYTE CT 8.8 /CUMM (1.4-6.5); ABSOLUTE LYMPH COUNT 1.6 /CUMM (1.2-3.4); ABSOLUTE MONOCYTE COUNT 0.6 /CUMM (0.10-0.60); BASOPHIL % 0.8 % (0.0-2.0); EOSINOPHIL % 3.2 % (0-5); GRANULOCYTE % 77.3 % (42.2-75.2); HEMATOCRIT 20.6 % (37-47); MEAN CORPUSCULAR HGB 30.2 PG (27.0-31.0); MEAN CORPUSCULAR VOLUME 88.9 FL (81.0-99.0); MEAN PLATELET VOLUME 6.9 FL (7.4-10.4); PLATELET COUNT 251 /CUMM (130-400); RBC DISTRIBUTION WIDTH 16.3 % (11.5-14.5); RED BLOOD CELL CT 2.32 /CUMM (4.20-5.40); WHITE BLOOD CELL COUNT 11.4 /CUMM (4.8-10.8)
--- NOTE | 2017-07-01 07:28 | PN- Housestaff ---
See Addendum Subjective Follow-up For: MARY Subjective: Ms Vo was seen and examined this morning. Resting comfortably in bed. She appears upset owing to the fact that multiple tests are still undergoing regarding her care. States that she was able to tolerate the endoscopy well. Overnight she was made nothing by mouth after having one episode of melena. She was started on GoLYTELY in anticipation of an upcoming colonoscopy later today. She denies any fever, chills, nausea vomiting. Endorses mild chest pain going to site of chest tube insertion. Review of Systems Constitutional: Reports: see HPI. Objective Last 24 Hrs of Vital Signs/I&O Vital Signs Date Time Temp Pulse Resp B/P B/P Pulse O2 O2 Flow FiO2 Mean Ox Delivery Rate 07/01 0843 94 Nasal 2.0L Cannula 07/01 799 98.1 60 18 140/70 97 Nasal 3.0L Cannula 07/01 0000 97 Nasal 2.0L Cannula 07/01 0000 98.3 51 22 100/48 97 Nasal 2.0L Cannula 06/305 88 Room Air Room Air 06/30 2006 97 Nasal 3.0L Cannula 06/30 2006 97.6 66 18 130/54 97 Nasal 2.0L Cannula 06/30 1100 18 95 Room Air Intake & Output 07/01 1600 07/01 0800 07/01 0000 Intake Total 728 800 Output Total 800 Balance -72 800 Intake, IV 488 Intake, Oral 240 800 Number 3 Bowel Movements Output, Stool 600 Output, Urine 200 Physical Exam General Appearance: Alert, Oriented X3, Cooperative Cardiovascular: Regular Rate, Normal S1, Normal S2 Lungs: Clear to Auscultation, Chestube in Place. Right Lower Lung Base Abdomen: Normal Bowel Sounds, Soft, No Tenderness, Hyperactive BS Neurological: Normal Speech Extremities: No Clubbing, No Cyanosis, No Edema Vascular: Normal Pulses Current Medications: Current Medications Sig/Suleman Start time Last Medication Dose Route Stop Time Status Admin Acetaminophen 1,000 MG Q6P PRN 06/19 1130 AC 06/25 N/A 1 UNIT IV 1527 Albuterol Sulfate 3 ML BID 06/30 2200 AC 07/01 INH 0931 Albuterol Sulfate 3 ML EVERY 4 HRS/AWAKE 06/26 1234 DC 06/30 INH 0818 Ampicillin Sodium/ 3,000 MG Q8H 06/23 1600 AC 07/01 Sulbactam Sodium IV 0814 Sodium Chloride 100 ML Atorvastatin Calcium 40 MG 1700 06/15 1700 AC 06/29 PO 1651 Calcium Carbonate 500 MG DAILY 06/21 1000 AC 06/30 PO 0855 Chlorhexidine 1 GM .STK-MED ONE 06/30 1507 DC Gluconate TOP 06/30 1508 Dextrose/Water 1,000 ML Q13H 06/30 0815 DC 07/01 IV 0009 Docusate Sodium 100 MG BID 06/12 2359 AC 06/28 PO 0853 Hydromorphone HCl 2 MG Q4P PRN 06/27 1115 AC 07/01 IV 0204 Hydromorphone HCl 1.2 MG Q4-6 PRN PRN 06/24 1100 AC 06/27 IV 0522 Insulin Aspart 0 TIDAC/HS 07/01 1200 UNVr SC Insulin Aspart 0 Q4 06/30 1000 CA 07/01 SC 0221 Insulin Detemir 15 UNITS BID 07/01 1000 UNVr SC Ketamine HCl 50 MG .STK-MED ONE 06/30 1321 CA IM 06/30 1322 Lidocaine 50 ML .STK-MED ONE 06/30 1507 [facility] 06/30 1508 Lidocaine 1 PAT DAILY@1700 06/20 1700 AC 06/27 EXT 1644 Melatonin 5 MG AT BEDTIME 06/21 2200 AC 06/30 PO 2220 Midazolam HCl 2 MG .STK-MED ONE 06/30 1321 CA IM 06/30 1322 Nitroglycerin 0.5 GM Q6P PRN 06/15 1830 TOP Oxycodone HCl 40 MG Q12 06/25 2200 AC 07/01 PO 0812 Oxycodone HCl 10 MG Q4P PRN 06/23 1730 CA 06/25 PO 0944 Oxycodone HCl 20 MG Q4P PRN 06/23 1730 DC 06/27 PO 0257 Pantoprazole Sodium 40 MG DAILY 06/30 1000 AC 07/01 IV 0814 Polyethylene Glycol 0.5 GAL ONCE ONE 06/30 1914 DC 06/30 PO 06/30 191 2220 Pregabalin 75 MG BID 06/13 2200 AC 07/01 PO 0812 Senna/Docusate Sodium 1 TAB BID 06/27 1145 AC 06/28 PO 0853 Sodium Chloride 2 SPRAY Q4P PRN 06/27 0015 06/27 TREY 0209 Tiotropium [place] 1 PUF DAILY 06/14 1000 AC 07/01 INH 0814 Zinc Oxide 1 JEVNO BID 06/30 1248 06/30 TOP 2221 Last 24 Hrs of Lab/Drew Results Last 24 Hrs of Labs/Mics: Laboratory Tests 07/01/17 0407: Anion Gap 13, Estimated GFR 19 L, Glucose 122 H, Calcium 8.4, Phosphorus 5.4 H, Magnesium 1.6, Total Bilirubin 0.5, AST 123 H, ALT 82 H, Albumin 2.4 L, CBC w Diff NO MAN DIFF REQ, RBC 2.32 L, MCV 88.9, MCH 30.2, RDW 16.3 H, MPV 6.9 L, Gran % 77.3 H, Lymphocytes % 13.6 L, Monocytes % 5.1, Eosinophils % 3.2, Basophils % 0.8, Absolute Granulocytes 8.8 H, Absolute Lymphocytes 1.6, Absolute Monocytes 0.6, Absolute Eosinophils 0.4, Absolute Basophils 0.1, PUBS MCHC 34.0 07/01/17 0025: CBC w Diff NO MAN DIFF REQ, RBC 2.41 L, MCV 88.1, MCH 29.7, RDW 16.6 H, MPV 6.5 L, Gran % 82.6 H, Lymphocytes % 9.4 L, Monocytes % 5.0, Eosinophils % 2.5 , Basophils % 0.5, Absolute Granulocytes 9.9 H, Absolute Lymphocytes 1.1 L, Absolute Monocytes 0.6, Absolute Eosinophils 0.3, Absolute Basophils 0.1, PUBS MCHC 33.7 06/30/17 1715: CBC w Diff NO MAN DIFF REQ, RBC 2.55 L, MCV 88.3, MCH 29.7, RDW 16.7 H, MPV 6.7 L, Gran % 82.6 H, Lymphocytes % 9.8 L, Monocytes % 4.8, Eosinophils % 2.4 , Basophils % 0.4, Absolute Granulocytes 10.0 H, Absolute Lymphocytes 1.2, Absolute Monocytes 0.6, Absolute Eosinophils 0.3, Absolute Basophils 0, PUBS MCHC 33.7 06/30/17 1054: CBC w Diff NO MAN DIFF REQ, RBC 2.64 L, MCV 87.7, MCH 29.7, RDW 16.3 H, MPV 6.9 L, Gran % 84.6 H, Lymphocytes % 9.6 L, Monocytes % 3.7, Eosinophils % 1.8 , Basophils % 0.3, Absolute Granulocytes 11.0 H, Absolute Lymphocytes 1.2, Absolute Monocytes 0.5, Absolute Eosinophils 0.2, Absolute Basophils 0, PUBS MCHC 33.9 Assessment/Plan Assessment: 61-year-old woman, current smoker with a history of COPD, diabetes type 2 with diabetic neuropathy, left leg DVT status post IVC filter, chronic kidney disease , neuropathy and peripheral vascular disease, 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 Patient had drainage and Pleurx catheter drain placed on the for question of empyema. Fluid was found to be slightly blood tinged serous grossly. Fluid composition showed elevated WBCs, RBCs, pH 6.4, LDH of 3819. She is on Unasyn. She was found to have extremely elevated white blood cell count on admission of 44. Chest x-ray done after placement on 06/13 showed persistent moderate volume of her right pleural effusion. WBCs continue to be elevated. Patient had repositioning of pigtail catheter and VQ scan done under anesthesia which returned with low to intermediate probability of PE so she was continued on IV heparin. As per cardiothoracic surgery, the patient might be bleeding and suggests discontinuing heparin. However as per cardiology the patient requires anticoagulation for potential PE. Patient has had minimal drainage after repositioning of pigtail catheter. Plan #1 Acute hypoxic respiratory failure likely secondary to community-acquired pneumonia, COMPLICATED BY EMPYEMA: She was found to have an empyema which was drained with Pleurx catheter. Fluid was found to be exudative in nature. Catheter drainage was ?650 mL of serous sanguinous fluid from first pigtail catheter placement with minimal drainage after repositioning. Repeat CT of the chest was done under anesthesia today, postoperatively stable, clearly shows complex empyema, compressing most of the lung tissue on the right side. Patient sent for lung decortication today. -Chest x-ray today: Persistent consolidation of right middle and right lower lobes and unchanged appearance of the loculated right pleural effusion with thoracostomy tube in place. Unasyn 3 g every 12 to every 8 hours #Pleuritic chest pain with positive troponins: Likely due to demand ischemia, with AMEYA also contributing to it. -According to Dr. Lucas, if patient has precordial chest pain then can begin NTG paste 1/2 inch Q 6 hours. -According to Dr. Lucas, cardiology, myocardial ischemia cannot be 100% excluded and patient should later have outpatient risk stratification with a stress test. Statin was discontinued owing to transaminitis. #Urinary tract infection: Dirty urine, cultures positive for staph aureus -She has received an adequate course of Vancomycin for a lower urinary tract infection. Currently on Unasyn. Will continue. #Anemia -Patient had hemoglobin 7.0/20.6 this am. Will be transfused another unit of PRBC. Total 10 units. -Guaiac + #Insulin-dependent diabetes mellitus, Uncontrolled * Blood sugars are at 205,182,182,187 * SS adjusted as per endo recommendations. * Patient was on a clear liquid diet and will have a colonoscopy done on 2017. The scope was not able to be done on 07/01/2017. Will make the patient NPO from Midnight. * SS have been adjusted to Novolin. # Elevated proBNP at 2590. No previous echo on record. * Echo showed good ejection fraction and no obvious wall motion regional abnormalities * Daily I/O and weight checks. #Acute kidney injury on chronic kidney disease * Patient has had persistent bicarb deficiency during this stay, has never had this problem before. * Monitory BEP. Cr 2.6 * Avoid nephrotoxins # Hyperkalemia * Potassium has normalized. K: 4.0 -Pain Control with Dilaudid and IV Tylenol -Diabetic diet -DVT prophylaxis Alps on right leg -Full code Problem List: 1. Occult blood positive stool 2. Acute blood loss anemia 3. Elevated transaminase level Pain Ratin Pain Location: Right Chest Pain Goal: Remain pain free Pain Plan: Dilaudid Tomorrow's Labs & Rationales: CBC: monitor H/H in the setting of anemia BEP: monitor electrolytes in the setting of acute illness
--- NOTE | 2017-07-01 07:36 | PN- Diabetes ---
Assessment/Plan Assessment: This 61-year-old woman with a known history of type 2 diabetes mellitus associated with morbid obesity and with severe complications including a left below the knee amputation diabetic neuropathy and chronic kidney diseases stage 4 presented to the emergency room with respiratory failure. The patient underwent right thoracotomy with drainage of an empyema. A great deal of loculation of fibrosis was found apparently according to the operative note. The patient underwent the panendoscopy yesterday and is scheduled for colonoscopy today. She has been on just clear liquids and has received GoLYTELY. The patient did not receive any Levemir yesterday. She is on NovoLog coverage every 4 hours. Her sugars have been in a fairly good range. She is on D5 half- normal saline at 75 mL per hour. Plan: Suggest continue NovoLog coverage every 4 hours until after the procedure. Once the procedure is done and diet is resumed we can resume the patient's Levemir. When the patient is eating again, I would begin with 15 units of Levemir twice a day and change her sliding scale NovoLog to before meals. A separate bedtime sliding scale NovoLog should be written. Bedtime sliding scale NovoLog should be less than 250 give no insulin, 251-300 give 3 units NovoLog, 301-350 give 4 units NovoLog, 351-400 give 5 units NovoLog. Subjective Subjective: Feels very discouraged Review of Systems Constitutional: Denies: chills, fever. Cardiovascular: Denies: chest pain. Respiratory: Reports: short of breath. Gastrointestinal: Denies: abdominal pain, nausea, vomiting. Objective Last 24 Hrs of Vital Signs/I&O Vital Signs Date Time Temp Pulse Resp B/P B/P Pulse O2 O2 Flow FiO2 Mean Ox Delivery Rate 07/01 0000 97 Nasal 2.0L Cannula 07/01 98.3 51 22 100/48 97 Nasal 2.0L Cannula 06/30 2054 88 Room Air Room Air 06/30 2006 97 Nasal 3.0L Cannula 06/30 2006 97.6 66 18 130/54 97 Nasal 2.0L Cannula 06/30 1100 18 95 Room Air 06/30 0733 94 Nasal 2.0L Cannula 06/30 0723 19 95 Room Air 06/30 799 Room Air 06/30 799 97.2 55 20 114/58 97 Room Air Intake & Output 07/01 0000 06/30 1600 Intake Total 728 800 575 Output Total 800 905 Balance -72 800 -330 Intake, IV 488 575 Intake, Oral 240 800 Number 3 3 Bowel Movements Output, Chest 5 Tube Drainage Output, Stool 600 Output, Urine 200 900 Vital Signs Date Time Temp Pulse Resp B/P B/P Pulse O2 O2 Flow FiO2 Mean Ox Delivery Rate 07/01 0000 97 Nasal 2.0L Cannula 07/01 98.3 51 22 100/48 97 Nasal 2.0L Cannula 06/30 2054 88 Room Air Room Air 06/30 2006 97 Nasal 3.0L Cannula 06/30 2006 97.6 66 18 130/54 97 Nasal 2.0L Cannula 06/30 1100 18 95 Room Air 06/30 832 94 Nasal 2.0L Cannula 06/30 822 19 95 Room Air 06/30 799 Room Air 06/30 799 97.2 55 20 114/58 97 Room Air Intake & Output 07/01 0807/01 0000 06/30 1600 Intake Total 728 800 575 Output Total 800 905 Balance -72 800 -330 Intake, IV 488 575 Intake, Oral 240 800 Number 3 3 Bowel Movements Output, Chest 5 Tube Drainage Output, Stool 600 Output, Urine 200 900 Physical Exam General Appearance: alert, awake, anxious Head: normal appearance Neck: normal inspection Respiratory: decreased breath sounds (right lung) Cardiovascular: regular rate/rhythm Abdomen: normal bowel sounds, soft Extremities: swelling (right lower leg) Current Medications: Current Medications Sig/Suleman Start time Last Medication Dose Route Stop Time Status Admin Acetaminophen 1,000 MG Q6P PRN 06/19 1130 AC 06/25 N/A 1 UNIT IV 1527 Albuterol Sulfate 3 ML BID 06/30 220 AC 06/30 INH 2050 Albuterol Sulfate 3 ML EVERY 4 HRS/AWAKE 06/26 1234 DC 06/30 INH 0818 Ampicillin Sodium/ 3,000 MG Q8H 06/23 1600 AC 07/01 Sulbactam Sodium IV 0007 Sodium Chloride 100 ML Atorvastatin Calcium 40 MG 1700 06/15 1700 AC 06/29 PO 1651 Calcium Carbonate 500 MG DAILY 06/21 1000 AC 06/30 PO 0855 Chlorhexidine 1 GM .STK-MED ONE 06/30 1507 DC Gluconate TOP 06/30 1508 Dextrose/Sodium 1,000 ML Q13H 06/30 0800 DC Chloride IV Dextrose/Water 1,000 ML Q13H 06/30 0815 07/01 IV 0009 Docusate Sodium 100 MG BID 06/12 2359 AC 06/28 PO 0853 Hydromorphone HCl 2 MG Q4P PRN 06/27 1115 AC 07/01 IV 0204 Hydromorphone HCl 1.2 MG Q4-6 PRN PRN 06/24 1100 AC 06/27 IV 0522 Insulin Aspart 0 Q4 06/30 1000 AC 07/01 SC 0221 Insulin Aspart 0 TIDAC/HS 06/24 1200 DC 06/29 SC 1651 Insulin Detemir 25 UNITS BID 06/28 2200 DC 06/29 SC 2112 Ketamine HCl 50 MG .STK-MED ONE 06/30 1321 DC IM 06/30 1322 Lidocaine 50 ML .STK-MED ONE 06/30 1507 RI TOP 06/30 1508 Lidocaine 1 PAT DAILY@1700 06/20 1700 06/27 EXT 1644 Melatonin 5 MG AT BEDTIME 06/21 2200 06/30 PO 2220 Midazolam HCl 2 MG .STK-MED ONE 06/30 1321 DC IM 06/30 1322 Nitroglycerin 0.5 GM Q6P PRN 06/15 1830 TOP Oxycodone HCl 40 MG Q12 06/25 2200 AC 06/30 PO 2224 Oxycodone HCl 10 MG Q4P PRN 06/23 1730 RI 06/25 PO 0944 Oxycodone HCl 20 MG Q4P PRN 06/23 1730 DC 06/27 PO 0257 Pantoprazole Sodium 40 MG DAILY 06/30 1000 06/30 IV 0855 Polyethylene Glycol 0.5 GAL ONCE ONE 06/30 1915 DC 06/30 PO 06/30 1916 2220 Pregabalin 75 MG BID 06/13 2200 06/30 PO 2223 Senna/Docusate Sodium 1 TAB BID 06/27 1145 AC 06/28 PO 0853 Sodium Chloride 2 SPRAY Q4P PRN 06/27 0015 06/27 TREY 0209 Tiotropium [place] 1 PUF DAILY 06/14 1000 06/30 INH 0855 Zinc Oxide 1 JEVON BID 06/30 1248 06/30 TOP 2221 Findings Pertinent Lab/Drew Results: Laboratory Tests 07/01 07/01 0407 0025 Chemistry Sodium (137 - 145 mmol/L) 140 Potassium (3.5 - 5.1 mmol/L) 4.0 Chloride (98 - 107 mmol/L) 107 Carbon Dioxide (22 - 30 mmol/L) 21 L Anion Gap (5 - 16) 13 BUN (7 - 17 mg/dL) 73 H Creatinine (0.5 - 1.0 mg/dL) 2.6 H Estimated GFR (>60 ml/min) 19 L Glucose (65 - 99 mg/dL) 122 H Calcium (8.4 - 10.2 mg/dL) 8.4 Phosphorus (2.5 - 4.5 mg/dL) 5.4 H Magnesium (1.6 - 2.3 mg/dL) 1.6 Total Bilirubin (0.2 - 1.3 mg/dL) 0.5 AST (14 - 36 U/L) 123 H ALT (9 - 52 U/L) 82 H Albumin (3.5 - 5.0 g/dL) 2.4 L Hematology CBC w Diff NO MAN DIFF REQ NO MAN DIFF REQ WBC (4.8 - 10.8 /CUMM) 11.4 H 11.9 H RBC (4.20 - 5.40 /CUMM) 2.32 L 2.41 L Hgb (12.0 - 16.0 G/DL) 7.0 *L 7.2 *L Hct (37 - 47 %) 20.6 L 21.2 L MCV (81.0 - 99.0 FL) 88.9 88.1 MCH (27.0 - 31.0 PG) 30.2 29.7 RDW (11.5 - 14.5 %) 16.3 H 16.6 H Plt Count (130 - 400 /CUMM) 251 255 MPV (7.4 - 10.4 FL) 6.9 L 6.5 L Gran % (42.2 - 75.2 %) 77.3 H 82.6 H Lymphocytes % (20.5 - 51.1 %) 13.6 L 9.4 L Monocytes % (1.7 - 9.3 %) 5.1 5.0 Eosinophils % (0 - 5 %) 3.2 2.5 Basophils % (0.0 - 2.0 %) 0.8 0.5 Absolute Granulocytes (1.4 - 6.5 /CUMM) 8.8 H 9.9 H Absolute Lymphocytes (1.2 - 3.4 /CUMM) 1.6 1.1 L Absolute Monocytes (0.10 - 0.60 /CUMM) 0.6 0.6 Absolute Eosinophils (0.0 - 0.7 /CUMM) 0.4 0.3 Absolute Basophils (0.0 - 0.2 /CUMM) 0.1 0.1 PUBS MCHC (33.0 - 37.0 G/DL) 34.0 33.7 06/30 06/30 1715 1054 Hematology CBC w Diff NO MAN DIFF REQ NO MAN DIFF REQ WBC (4.8 - 10.8 /CUMM) 12.1 H 13.0 H RBC (4.20 - 5.40 /CUMM) 2.55 L 2.64 L Hgb (12.0 - 16.0 G/DL) 7.6 L 7.8 L Hct (37 - 47 %) 22.5 L 23.2 L MCV (81.0 - 99.0 FL) 88.3 87.7 MCH (27.0 - 31.0 PG) 29.7 29.7 RDW (11.5 - 14.5 %) 16.7 H 16.3 H Plt Count (130 - 400 /CUMM) 246 249 MPV (7.4 - 10.4 FL) 6.7 L 6.9 L Gran % (42.2 - 75.2 %) 82.6 H 84.6 H Lymphocytes % (20.5 - 51.1 %) 9.8 L 9.6 L Monocytes % (1.7 - 9.3 %) 4.8 3.7 Eosinophils % (0 - 5 %) 2.4 1.8 Basophils % (0.0 - 2.0 %) 0.4 0.3 Absolute Granulocytes (1.4 - 6.5 /CUMM) 10.0 H 11.0 H Absolute Lymphocytes (1.2 - 3.4 /CUMM) 1.2 1.2 Absolute Monocytes (0.10 - 0.60 /CUMM) 0.6 0.5 Absolute Eosinophils (0.0 - 0.7 /CUMM) 0.3 0.2 Absolute Basophils (0.0 - 0.2 /CUMM) 0 0 PUBS MCHC (33.0 - 37.0 G/DL) 33.7 33.9
--- NOTE | 2017-07-01 07:46 | RADIOLOGY REPORT ---
EXAMINATION: XR PORTABLE CHEST CLINICAL INFORMATION: Chest tube in place minimal drainage assess pneumothorax. COMPARISON: Multiple prior examinations most recent CT 06/29/2017 and portable chest x-ray 06/29/2017. . TECHNIQUE: Portable frontal view of the chest was obtained. FINDINGS: Right drainage tube in place overlying the right hemithorax of. Skin bernie present. Persistent pleural effusion likely partially loculated along the lateral chest wall unchanged. I do not see pneumothorax. Left chest is clear. Cardiac silhouette mediastinum pulmonary vascularity normal. IMPRESSION: No pneumothorax. Right hemithorax unchanged with drainage catheter and likely partially loculated pleural effusion unchanged.
[2017-07-01 08:00] VITALS: BP 140/70
--- NOTE | 2017-07-01 08:11 | PN- Pulmonary ---
Subjective HPI/Critical Care Issues: Patient has melena and persistent acute blood loss anemia. Respiratory status is stable Objective Current Medications: Current Medications Sig/Suleman Start time Last Medication Dose Route Stop Time Status Admin Acetaminophen 1,000 MG Q6P PRN 06/19 1130 AC 06/25 N/A 1 UNIT IV 1527 Albuterol Sulfate 3 ML BID 06/30 2200 AC 06/30 INH 2050 Albuterol Sulfate 3 ML EVERY 4 HRS/AWAKE 06/26 1234 DC 06/30 INH 0818 Ampicillin Sodium/ 3,000 MG Q8H 06/23 1600 AC 07/01 Sulbactam Sodium IV 0007 Sodium Chloride 100 ML Atorvastatin Calcium 40 MG 1700 06/15 1700 AC 06/29 PO 1651 Calcium Carbonate 500 MG DAILY 06/21 1000 AC 06/30 PO 0855 Chlorhexidine 1 GM .STK-MED ONE 06/30 1507 DC Gluconate [facility] 06/30 1508 Dextrose/Water 1,000 ML Q13H 06/30 0815 07/01 IV 0009 Docusate Sodium 100 MG BID 06/12 2359 06/28 PO 0853 Hydromorphone HCl 2 MG Q4P PRN 06/27 1115 07/01 IV 0204 Hydromorphone HCl 1.2 MG Q4-6 PRN PRN 06/24 1100 AC 06/27 IV 0522 Insulin Aspart 0 Q4 06/30 1000 07/01 SC 0221 Ketamine HCl 50 MG .STK-MED ONE 06/30 1321 DC IM 06/30 1322 Lidocaine 50 ML .STK-MED ONE 06/30 1507 [facility] 06/30 1508 Lidocaine 1 PAT DAILY@1700 06/20 1700 06/27 EXT 1644 Melatonin 5 MG AT BEDTIME 06/21 2200 AC 06/30 PO 2220 Midazolam HCl 2 MG .STK-MED ONE 06/30 1321 DC IM 06/30 1322 Nitroglycerin 0.5 GM Q6P PRN 06/15 1830 TOP Oxycodone HCl 40 MG Q12 06/25 2200 AC 06/30 PO 2224 Oxycodone HCl 10 MG Q4P PRN 06/23 1730 DC 06/25 PO 0944 Oxycodone HCl 20 MG Q4P PRN 06/23 1730 DE 06/27 PO 0257 Pantoprazole Sodium 40 MG DAILY 06/30 1000 AC 06/30 IV 0855 Polyethylene Glycol 0.5 GAL ONCE ONE 06/30 1914 DC 06/30 PO 06/30 191 2220 Pregabalin 75 MG BID 06/13 220 AC 06/30 PO 2223 Senna/Docusate Sodium 1 TAB BID 06/27 1145 AC 06/28 PO 0853 Sodium Chloride 2 SPRAY Q4P PRN 06/27 0015 AC 06/27 TREY 0209 Tiotropium [place] 1 PUF DAILY 06/14 1000 AC 06/30 INH 0855 Zinc Oxide 1 JEVON BID 06/30 1248 AC 06/30 TOP 2221 Vital Signs & I&O Last 24 Hrs of Vitals and I&O: Vital Signs Date Time Temp Pulse Resp B/P B/P Pulse O2 O2 Flow FiO2 Mean Ox Delivery Rate 07/01 97 Nasal 2.0L Cannula 07/01 98.3 51 22 100/48 97 Nasal 2.0L Cannula 06/30 2054 88 Room Air Room Air 06/30 2006 97 Nasal 3.0L Cannula 06/30 2006 97.6 66 18 130/54 97 Nasal 2.0L Cannula 06/30 1100 18 95 Room Air 06/30 0833 94 Nasal 2.0L Cannula 06/30 0823 19 95 Room Air Intake & Output 07/01 1600 07/01 0800 07/01 0000 Intake Total 728 800 Output Total 800 Balance -72 800 Intake, IV 488 Intake, Oral 240 800 Number 3 Bowel Movements Output, Stool 600 Output, Urine 200 And saturation 2 L 97% exam for chest continues showed diminished breath sounds the right base cardiac exam shows normal S1 and S2 without murmurs Impression/Plan Impression/Plan Impression/Plan: 61-year-old with right-sided empyema secondary to community-acquired pneumonia with associated sepsis. Patient has persistent loculated effusion and leukocytosis complicated by DVT now status post evacuation of empyema and hemothorax . Chest tube drainage has diminished and white count is improved. Source of blood loss to be evaluated by GI CT surgery follow-up for consideration of chest tube removal Recommendations: Pulmonary toilet and incentive spirometry. Decision to remove chest tubes per CT surgery. Check room air oxygen saturation. Await results of colonoscopy with continued melena and acute blood loss anemia
--- NOTE | 2017-07-01 08:43 | PN- Gastroenterology ---
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 She also had some symptoms of UTI. On admission, WBC 47K (93S/5B) BUN/Cr 65/3.7, GFR 12, Na 134, K 3.0, HCO3 20, AG 18, nl lactate 1.6, TBil 0.4, alk phos 243, AST/ALT 42/ 52, albumin 2.9, globulin 3.9, troponin 0.23, proBNP 2520, INR 1.33, ABG 7.26/ 40/77 on 6L. U/A: >75 WBCs. Chest x-ray- opacity in the right hemithorax. Doppler of the right lower extremity was negative for DVT, but revealed a thrombus within the greater saphenous vein of the proximal thigh, extending to the saphenofemoral junction. The patient has been on numerous antibiotics and steroids here. She was seen by numerous consultants, including medicine, cardiology, endocrine, thoracic surgery, pulmonary, ID, & renal. She was found to have an empyema with complicated effusion with hemorrhagic fluid (06/13/17: 26,800 RBC, 12,750 WBC with 95% PMN), & underwent 06/23/17: right thoracotomy with drainage of empyema and decortication of RLL. 1400 mL of serosanguineous fluid was drained from the thoracic cavity with placement of 2 chest tubes. Additionally, she had a ? PE, with indeterminate 06/16/17: VQ scan. The patient was placed on Unasyn for H. influenza, as she had positive blood cultures. She received numerous transfusions of PRBC. Again, she did have serosanguineous fluid coming out of the chest tube, but did have one stool positive for occult blood, prompting the GI consult. She was on aspirin 325 mg po daily from 06/25/17-06/28/17. There were no NSAIDS. I did not see any A/C therapy in the computer, but I later found out the patient was on a course of IV heparin earlier this admission. *She had received a total of 8u PRBC from -06/29/17. There have been no coags sent since 06/12/17. The patient denied any vaginal spotting or gross hematuria. She did have intermittent hemoptysis and coughed up some blood while I was in the room during the 06/29/17: GI consult. She was very nervous. She denied any GERD, odynophagia, dysphagia, or definite early satiety, although she was somewhat unsure, regarding the latter. She denied any abdominal pain, hematemesis, or melena. She denied any diarrhea, constipation, obstipation, tenesmus, or rectal bleeding. She never had an EGD or colonoscopy. There is no family history of GI CA, GI disease, or inherited liver disease. She tolerated solids po today. She currently denied any fevers, chills, jaundice, or significant weight loss. 10/13/16: SPEP- no monoclonal gammopathy, with elevated acute phase proteins. 06/12/17: PT 13.9, INR 1.33, PTT 71 06/12/17: troponin 0.23-> 0.25-> 0.18 06/28/17: U/A- pyuria, without gross hematuria. 06/29/17: WBC 11.5, H/H 6.3/18.6 (*prior to 7th u PRBC), MCV 90.1, RDW 16.4, PLT 267, glucose 197, BUN/Cr 75/3.1, GFR 15, Na 141, K 4.4, HCO3 21, AG 13, Mg 1.7, Ca 8.2, PO4 5.4, alb 2.2, TBil 0.3, AST 18, ALT 34 06/23/17: EKG- NSR @ 83, RBBB, LAHB, multiple APC, LVH, PRWP (without change from prior EKG) Please see [facility] computer for numerous imaging studies obtained from -06/29/17. 06/29/17: CT ABD & PELVIS W/O IV CONTRAST; CT CHEST WO IV CONTRAST- 1. *Limited noncontrast study. The [id number] is also limited. The lateral aspects of the patient's body are excluded from the field of view secondary to the large body habitus. In addition, there is significant artifact related to the patient's arms which are at their sides. 2. No definite evidence for an intrathoracic, abdominal or pelvic hematoma. *An active arterial bleed cannot be assessed on this noncontrast study. 3. Decrease in size of a right-sided hydropneumothorax compared to the prior chest CT. A chest tube in position. 06/29/17: XRY-PORTABLE CHEST XRAY- Persistent consolidation of right middle and right lower lobes and unchanged appearance of the loculated right pleural effusion with thoracostomy tube in place. I was not convinced at the time of the 06/29/17: GI consult that the primary source of the patient's severe multifactorial anemia requiring 8u PRBC to date was GI in nature. The patient only had brown, OB positive stool. I would have expected reddish or maroon blood per rectum, melena, or hematemesis for presumed active GI bleeding, to account for blood loss of this magnitude. Coags had not been checked since 06/12/17. I doubt DIC with normal platelet count. I also doubt hemolysis with normal TBil. The patient's initial chest tap was bloody & she just had some mild hemoptysis. The 06/29/17: CT CAP was somewhat limited in looking for active bleeding without IV contrast, which was limited by the patient's CKD. No gross retroperitoneal bleeding was seen. The patient was extremely anxious. The risks and benefits of EGD were discussed with the patient, and she reluctantly agreed to proceed with this tomorrow, on 06/30/17. ASA is on hold. 06/29/17: LDH 526. 06/30/17: WBC 13.0, H/H 7.8/23.2 (post 9th u PRBC), glucose 154, BUN/Cr 85/2.8, GFR 17, Na 141, K 4.1, HCO3 20, AG 11, Ca 8.1, PO4 5.2, alb 2.1, TBil 0.6, AST 33, ALT 43, PT 14.8, INR 1.41, nl fibrinogen 356, 06/30/17: *Haptoglobin- pending. *As of 06/30/17, the patient remained hemodynamically stable and afebrile. Multiple consultants' notes (medicine, endocrine, pulmonary, ID, CTS, renal, etc.) appreciated. She had received a total of 9u PRBC this admission, to date. She had no new complaints overnight. There was no overt hematemesis, rectal bleeding, or melena, just intermittent OB positive brown stool. She denied any abdominal pain, chest pain, or increased shortness of breath. Her right-sided chest tube had a small amount of serosanguineous output, without bright red blood. She denied any fevers, chills, or jaundice. IV Protonix 40 mg daily had been added 06/30/17. She remained on IV Unasyn & was NPO for EGD. She was hungry. 06/30/17: *EGD TO D3- Impression: 1. Superficial nonbleeding esophageal erosion at 35 cm, left intact. 2. 1+ nonerosive distal GERD with minimally irregular Z line at 40 cm, left intact. 3. Scant sliding hiatal hernia pouch, without any Freddie erosions. 4. Mildly inflamed gastric cardia, just below Z line on retroflexion, left intact. 5. Minimal prepyloric antral erythema, left intact. : XRY-PORTABLE CHEST XRAY- No pneumothorax. Right hemithorax unchanged with drainage catheter and likely partially loculated pleural effusion unchanged. 07/01/17: WBC 11.4, H/H 7.0/20.6, MCV 88.9, RDW 16.3, PLT 251, BUN/Cr 73/2.6, Na 140, K 4.0, HCO3 21, AG 13, Ca 8.4, Mg 1.6, PO4 5.4, TBil 0.5, *AST 123, *ALT 82 *As of 07/01/17, patient remained hemodynamically stable & afebrile, with O2 sat 2L 94%. *She reportedly had a dark bowel movement x 1 the evening of 06/30/17, and she was given 1/2 the gallon of GoLYTELY, in case her anticipated baseline colonoscopy scheduled for 07/02/17 had to be moved up. She remained hemodynamically stable overnight, without any overt bleeding today. Her chronically low Hgb drifted down a scant amount. Otherwise, she had no new complaints. She was anxious and agitated. She was threatening not to drink any more of the bowel prep. Her right chest tube remained in place. *SUGGEST: Clears po as tolerated. *Continue empiric Protonix 40 mg IV daily.*Check CBC Q8- 12h for now. T&C 2u PRBC. Keep Hgb > 7 (no documented ASHD). Supplemental O2. Strict I/O's. *Check peripheral smear. *Await 06/30/17: haptoglobin. *Consider checking FDP (nl fibrinogen). *Follow-up with pulmonary & CTS for potential non- GI sources of bleeding. *As no active UGI bleeding seen on 06/30/17: EGD, advise giving the remainder of the full gallon GoLytely on Thu at 2 p.m., then NPO after 11:59 p.m. on Thu07/01/17, for colonoscopy on 07/02/17. The risks and benefits of colonoscopy were discussed with the patient, and she agreed to proceed. Informed consent for colonoscopy was obtained from the patient. I am not certain that the majority of the patient's profound anemia is purely from GI bleeding. If colonoscopy negative, consideration for outpatient [facility]. DVT prophylaxis with mechanical ALPS. Will defer to CTS & ID regarding timing of pulling of right-sided chest tube & duration of antibiotics for H. flu bacteremia. Elevated transaminases noted- ? due to Unasyn > passive congestion (please follow LFTs & speak with ID; minimize Tylenol use). Further GI recommendations to follow, depending on clinical course. The above was discussed with the medical housestaff in depth. I also previously discussed the case with Dr. Munoz, Dr. Bartlett, & Dr. Rebolledo. Problem List: 1. Acute blood loss anemia 2. Occult blood positive stool 3. Elevated transaminase level 4. Empyema 5. Hemoptysis 6. CHRONIC RENAL FAILURE Subjective Subjective: 06/30/17: EGD TO D3- Impression: 1. Superficial nonbleeding esophageal erosion at 35 cm, left intact. 2. 1+ nonerosive distal GERD with minimally irregular Z line at 40 cm, left intact. 3. Scant sliding hiatal hernia pouch, without any Freddie erosions. 4. Mildly inflamed gastric cardia, just below Z line on retroflexion, left intact. 5. Minimal prepyloric antral erythema, left intact. : XRY-PORTABLE CHEST XRAY- No pneumothorax. Right hemithorax unchanged with drainage catheter and likely partially loculated pleural effusion unchanged. 07/01/17: WBC 11.4, H/H 7.0/20.6, MCV 88.9, RDW 16.3, PLT 251, BUN/Cr 73/2.6, Na 140, K 4.0, HCO3 21, AG 13, Ca 8.4, Mg 1.6, PO4 5.4, TBil 0.5, *AST 123, *ALT 82 *As of 07/01/17, patient remained hemodynamically stable & afebrile, with O2 sat 2L 94%. She reportedly had a dark bowel movement x 1 the evening of 06/30/17, and she was given 1/2 the gallon of GoLYTELY, in case her anticipated baseline colonoscopy scheduled for 07/02/17 had to be moved up. She remained hemodynamically stable overnight, without any overt bleeding today. Her chronically low Hgb drifted down a scant amount. Otherwise, she had no new complaints. She was anxious and agitated. She was threatening not to drink any more of the bowel prep. Her right chest tube remained in place. Review of Systems: Full 14 point review of systems otherwise noncontributory, and as above. Review of Systems Constitutional: Reports: malaise. Denies: chills, diaphoresis, fever, weakness, unexplained weight loss. EENTM: Denies: blurred vision, double vision, visual changes, eye pain, eye drainage, eye tearing, icterus, ear discharge, ear pain, ear redness, hearing changes, nasal congestion, epistaxis, nasal pain, throat pain, throat swelling, mouth pain, tooth pain. Cardiovascular: Reports: peripheral edema (trace). Denies: chest pain, edema, orthopena, palpitations, syncope. Respiratory: Reports: cough- improved, hemoptysis- improved. Denies: orthopnea, short of breath, sputum production, stridor, wheezing. GI: Reports: ? melena x 1. Denies: abdominal pain, bloating, constipation, diarrhea, distention, bowel incontinence, nausea, bloody stool, changes in stool, vomiting, steatorrhea. Genitourinary: Denies: discharge, dysuria, frequency, hematuria, hesitation, nocturia, pain, urgency. Musculoskeletal: Denies: back pain, gout, joint pain, joint swelling, muscle pain, muscle stiffness, neck pain. Skin: Denies: cysts, change in skin color, change in hair/nails, dryness, erythema, jaundice, lesions, lymphangitis, lumps, moles, rash. Neurological/Psychological: Reports: anxiety, depressed, paresthesia (hx neuropathy). Denies: ataxia, cognitive dysfunction, confusion, dementia, emotional problems, headache, numbness, pre-existing deficit, petit mal seizures, tingling, tremors, tonic-clonic seizures, unable to move lower ext, unable to move upper ext, weakness. Hematologic/Endocrine: Denies: bruising, bleeding, polyuria, polydipsia. Immunologic/Allergic: Denies: splenectomy, HIV/AIDS, lymphadenopathy. All Other Systems: Reviewed and Negative Objective Vital Signs and I&Os Vital Signs Date Time Temp Pulse Resp B/P B/P Pulse O2 O2 Flow FiO2 Mean Ox Delivery Rate 07/01 97 Nasal 2.0L Cannula 07/01 98.3 51 22 100/48 97 Nasal 2.0L Cannula 06/30 2055 88 Room Air Room Air 06/30 2006 97 Nasal 3.0L Cannula 06/30 2006 97.6 66 18 130/54 97 Nasal 2.0L Cannula 06/30 1100 18 95 Room Air Intake & Output 07/01 1600 07/01 0400 06/30 1600 06/30 0400 06/29 1600 06/29 0400 Intake Total 728 341 146 5082 1930 1280 Output Total 800 1530 1330 1867 1000 Balance -72 800 -605 700 63 280 Intake, Blood 350 690 340 370 Product Intake, IV 488 575 260 130 130 Intake, Oral 240 800 0 1080 1460 780 Number 3 5 6 4 4 Bowel Movements Output, Chest 30 30 17 Tube Drainage Output, Stool 600 Output, Urine 200 1500 1300 1850 1000 Patient 253 lb 246 lb Weight Weight Bed scale Measurement Method Physical Exam: Well-developed, somewaht malnourished, chronically ill-appearing obese female, anxious, in no apparent distress. Sclera anicteric. Conjunctiva slightly pale. Oropharynx clear. No oral thrush. No aphthous ulcers. Edentulous. There is no adenopathy, thyromegaly, JVD, or HJR. No peripheral stigmata of inflammatory bowel disease or chronic liver disease on exam. No spiders on the anterior chest wall. Breast & pelvic exams: API. No CVA tenderness. No spine tenderness. Lungs: clear to A&P, with decreased BS at right base (chest tube on right) & slightly prolonged expiratory phase. No wheezing, rales, or rhonchi. Heart exam : regular rate rhythm, S1 and S2, without any murmur. Abdominal exam: normal bowel sounds, soft obese belly, nontender, without guarding or rebound. No definite mass or organomegaly. No fluid shift. No pulsatile mass. No epigastric bruit. Repeat digital rectal exam 06/29/17 deferred per patient (* brown OB+ stool API on 06/28/17). Extremities: without cyanosis or clubbing. Post left BKA with prosthetic LLE. RLE with stasis dermatitis changes & 1+ edema , post amputation of right 1st & 3rd toes. No palpable cords. DJD. No palmar erythema. No Dupuytren's contractures. Distal pulses 1+ bilaterally. DTRs 2+ bilaterally. Alert and oriented x 3. Left handed. Motor 4/5 B/L. No tremor. No asterixis. A detailed exam for peripheral neuropathy was deferred, but is present by history. Current Medications: Current Medications Sig/Suleman Start time Last Medication Dose Route Stop Time Status Admin Acetaminophen 1,000 MG Q6P PRN 06/19 1130 AC 06/25 N/A 1 UNIT IV 1527 Albuterol Sulfate 3 ML BID 06/30 2200 AC 07/01 INH 0931 Albuterol Sulfate 3 ML EVERY 4 HRS/AWAKE 06/26 1234 DC 06/30 INH 0818 Ampicillin Sodium/ 3,000 MG Q8H 06/23 1600 AC 07/01 Sulbactam Sodium IV 0814 Sodium Chloride 100 ML Atorvastatin Calcium 40 MG 1700 06/15 1700 AC 06/29 PO 1651 Calcium Carbonate 500 MG DAILY 06/21 1000 AC 07/01 PO 1006 Chlorhexidine 1 GM .STK-MED ONE 06/30 1507 DC Gluconate TOP 06/30 1508 Dextrose/Water 1,000 ML Q13H 06/30 0815 DC 07/01 IV 0009 Docusate Sodium 100 MG BID 06/12 2359 AC 06/28 PO 0853 Hydromorphone HCl 1 MG ONCE ONE 07/01 1215 DC IV 07/01 1216 Hydromorphone HCl 2 MG Q4P PRN 06/27 1115 AC 07/01 IV 1212 Hydromorphone HCl 1.2 MG Q4-6 PRN PRN 06/24 1100 DC 06/27 IV 0522 Insulin Aspart 0 TIDAC/HS 07/01 1200 AC 07/01 SC 1142 Insulin Aspart 0 Q4 06/30 1000 DC 07/01 SC 0221 Insulin Detemir 15 UNITS BID 07/01 1000 AC 07/01 SC 1005 Ketamine HCl 50 MG .STK-MED ONE 06/30 1321 DC IM 06/30 1322 Lidocaine 50 ML .STK-MED ONE 06/30 1507 DC TOP 06/30 1508 Lidocaine 1 PAT DAILY@1700 06/20 1700 06/27 EXT 1644 Melatonin 5 MG AT BEDTIME 06/21 2200 AC 06/30 PO 2220 Midazolam HCl 2 MG .STK-MED ONE 06/30 1321 DC IM 06/30 1322 Nitroglycerin 0.5 GM Q6P PRN 06/15 1830 TOP Oxycodone HCl 40 MG Q12 06/25 2200 AC 07/01 PO 0812 Oxycodone HCl 10 MG Q4P PRN 06/23 1730 AK 06/25 PO 0944 Oxycodone HCl 20 MG Q4P PRN 06/23 1730 DC 06/27 PO 0257 Pantoprazole Sodium 40 MG DAILY 06/30 1000 AC 07/01 IV 0814 Polyethylene Glycol 0.5 GAL ONCE ONE 06/30 1915 DC 06/30 PO 06/30 191 2220 Pregabalin 75 MG BID 06/13 2200 AC 07/01 PO 0812 Senna/Docusate Sodium 1 TAB BID 06/27 1145 AC 06/28 PO 0853 Sodium Chloride 2 SPRAY Q4P PRN 06/27 0015 AC 06/27 TREY 0209 Tiotropium [place] 1 PUF DAILY 06/14 1000 AC 07/01 INH 0814 Zinc Oxide 1 JEVON BID 06/30 1248 07/01 TOP 1005 Results Pertinent Lab Results: Laboratory Tests 07/01 07/01 0407 0025 Chemistry Sodium (137 - 145 mmol/L) 140 Potassium (3.5 - 5.1 mmol/L) 4.0 Chloride (98 - 107 mmol/L) 107 Carbon Dioxide (22 - 30 mmol/L) 21 L Anion Gap (5 - 16) 13 BUN (7 - 17 mg/dL) 73 H Creatinine (0.5 - 1.0 mg/dL) 2.6 H Estimated GFR (>60 ml/min) 19 L Glucose (65 - 99 mg/dL) 122 H Calcium (8.4 - 10.2 mg/dL) 8.4 Phosphorus (2.5 - 4.5 mg/dL) 5.4 H Magnesium (1.6 - 2.3 mg/dL) 1.6 Total Bilirubin (0.2 - 1.3 mg/dL) 0.5 AST (14 - 36 U/L) 123 H ALT (9 - 52 U/L) 82 H Albumin (3.5 - 5.0 g/dL) 2.4 L Hematology CBC w Diff NO MAN DIFF REQ NO MAN DIFF REQ WBC (4.8 - 10.8 /CUMM) 11.4 H 11.9 H RBC (4.20 - 5.40 /CUMM) 2.32 L 2.41 L Hgb (12.0 - 16.0 G/DL) 7.0 *L 7.2 *L Hct (37 - 47 %) 20.6 L 21.2 L MCV (81.0 - 99.0 FL) 88.9 88.1 MCH (27.0 - 31.0 PG) 30.2 29.7 RDW (11.5 - 14.5 %) 16.3 H 16.6 H Plt Count (130 - 400 /CUMM) 251 255 MPV (7.4 - 10.4 FL) 6.9 L 6.5 L Gran % (42.2 - 75.2 %) 77.3 H 82.6 H Lymphocytes % (20.5 - 51.1 %) 13.6 L 9.4 L Monocytes % (1.7 - 9.3 %) 5.1 5.0 Eosinophils % (0 - 5 %) 3.2 2.5 Basophils % (0.0 - 2.0 %) 0.8 0.5 Absolute Granulocytes (1.4 - 6.5 /CUMM) 8.8 H 9.9 H Absolute Lymphocytes (1.2 - 3.4 /CUMM) 1.6 1.1 L Absolute Monocytes (0.10 - 0.60 /CUMM) 0.6 0.6 Absolute Eosinophils (0.0 - 0.7 /CUMM) 0.4 0.3 Absolute Basophils (0.0 - 0.2 /CUMM) 0.1 0.1 PUBS MCHC (33.0 - 37.0 G/DL) 34.0 33.7 06/30 06/30 1715 1054 Hematology CBC w Diff NO MAN DIFF REQ NO MAN DIFF REQ WBC (4.8 - 10.8 /CUMM) 12.1 H 13.0 H RBC (4.20 - 5.40 /CUMM) 2.55 L 2.64 L Hgb (12.0 - 16.0 G/DL) 7.6 L 7.8 L Hct (37 - 47 %) 22.5 L 23.2 L MCV (81.0 - 99.0 FL) 88.3 87.7 MCH (27.0 - 31.0 PG) 29.7 29.7 RDW (11.5 - 14.5 %) 16.7 H 16.3 H Plt Count (130 - 400 /CUMM) 246 249 MPV (7.4 - 10.4 FL) 6.7 L 6.9 L Gran % (42.2 - 75.2 %) 82.6 H 84.6 H Lymphocytes % (20.5 - 51.1 %) 9.8 L 9.6 L Monocytes % (1.7 - 9.3 %) 4.8 3.7 Eosinophils % (0 - 5 %) 2.4 1.8 Basophils % (0.0 - 2.0 %) 0.4 0.3 Absolute Granulocytes (1.4 - 6.5 /CUMM) 10.0 H 11.0 H Absolute Lymphocytes (1.2 - 3.4 /CUMM) 1.2 1.2 Absolute Monocytes (0.10 - 0.60 /CUMM) 0.6 0.5 Absolute Eosinophils (0.0 - 0.7 /CUMM) 0.3 0.2 Absolute Basophils (0.0 - 0.2 /CUMM) 0 0 PUBS MCHC (33.0 - 37.0 G/DL) 33.7 33.9 06/30 06/30 06/29 0524 0000 2316 Chemistry Sodium (137 - 145 mmol/L) 141 Potassium (3.5 - 5.1 mmol/L) 4.1 Chloride (98 - 107 mmol/L) 110 H Carbon Dioxide (22 - 30 mmol/L) 20 L Anion Gap (5 - 16) 11 BUN (7 - 17 mg/dL) 85 H Creatinine (0.5 - 1.0 mg/dL) 2.8 H Estimated GFR (>60 ml/min) 17 L Glucose (65 - 99 mg/dL) 154 H Calcium (8.4 - 10.2 mg/dL) 8.1 L Phosphorus (2.5 - 4.5 mg/dL) 5.2 H Magnesium (1.6 - 2.3 mg/dL) 1.6 Total Bilirubin (0.2 - 1.3 mg/dL) 0.6 AST (14 - 36 U/L) 33 ALT (9 - 52 U/L) 43 Albumin (3.5 - 5.0 g/dL) 2.1 L Coagulation PT (9.4 - 12.5 SEC) 14.8 H INR (0.90 - 1.19) 1.41 H Fibrinogen Activity (200 - 393 MG/DL) 356 D-Dimer High Sensitivty (0 - 243 ng/ml) 3236 H Hematology CBC w Diff Cancelled MAN DIFF ORDERED WBC (4.8 - 10.8 /CUMM) Cancelled 13.7 H RBC (4.20 - 5.40 /CUMM) Cancelled 2.31 L Hgb (12.0 - 16.0 G/DL) Cancelled 6.9 *L Hct (37 - 47 %) Cancelled 20.5 L MCV (81.0 - 99.0 FL) Cancelled 88.8 MCH (27.0 - 31.0 PG) Cancelled 29.7 RDW (11.5 - 14.5 %) Cancelled 16.0 H Plt Count (130 - 400 /CUMM) Cancelled 233 MPV (7.4 - 10.4 FL) Cancelled 6.7 L Gran % (42.2 - 75.2 %) 85.6 H Lymphocytes % (20.5 - 51.1 %) 7.6 L Monocytes % (1.7 - 9.3 %) 4.4 Eosinophils % (0 - 5 %) 2.1 Basophils % (0.0 - 2.0 %) 0.3 Absolute Granulocytes (1.4 - 6.5 /CUMM) 11.7 H Segmented Neutrophils (42.2 - 75.2 %) 90 H Absolute Lymphocytes (1.2 - 3.4 /CUMM) 1.0 L Lymphocytes (20.5 - 51.1 %) 5 L Monocytes (1.7 - 9.3 %) 2 Absolute Monocytes (0.10 - 0.60 /CUMM) 0.6 Eosinophils (0 - 5.0 %) 3 Absolute Eosinophils (0.0 - 0.7 /CUMM) 0.3 Absolute Basophils (0.0 - 0.2 /CUMM) 0 Platelet Estimate (ADEQUATE) ADEQUATE Polychromasia 1+ Poikilocytosis 1+ Basophilic Stippling 1+ Ovalocytes 1+ PUBS MCHC (33.0 - 37.0 G/DL) Cancelled 33.5 Haptoglobin Pending Other Body Source Fld Total RBCs Counted (%) 100 06/29 06/29 2200 1405 Hematology CBC w Diff Cancelled NO MAN DIFF REQ WBC (4.8 - 10.8 /CUMM) Cancelled 11.5 H RBC (4.20 - 5.40 /CUMM) Cancelled 2.07 L Hgb (12.0 - 16.0 G/DL) Cancelled 6.3 *L Hct (37 - 47 %) Cancelled 18.6 *L MCV (81.0 - 99.0 FL) Cancelled 90.1 MCH (27.0 - 31.0 PG) Cancelled 30.4 RDW (11.5 - 14.5 %) Cancelled 16.4 H Plt Count (130 - 400 /CUMM) Cancelled 267 MPV (7.4 - 10.4 FL) Cancelled 6.7 L Gran % (42.2 - 75.2 %) 82.3 H Lymphocytes % (20.5 - 51.1 %) 10.5 L Monocytes % (1.7 - 9.3 %) 4.6 Eosinophils % (0 - 5 %) 2.1 Basophils % (0.0 - 2.0 %) 0.5 Absolute Granulocytes (1.4 - 6.5 /CUMM) 9.5 H Absolute Lymphocytes (1.2 - 3.4 /CUMM) 1.2 Absolute Monocytes (0.10 - 0.60 /CUMM) 0.5 Absolute Eosinophils (0.0 - 0.7 /CUMM) 0.2 Absolute Basophils (0.0 - 0.2 /CUMM) 0.1 PUBS MCHC (33.0 - 37.0 G/DL) Cancelled 33.7 06/29 06/28 0430 2130 Chemistry Sodium (137 - 145 mmol/L) 141 Potassium (3.5 - 5.1 mmol/L) 4.4 Chloride (98 - 107 mmol/L) 107 Carbon Dioxide (22 - 30 mmol/L) 21 L Anion Gap (5 - 16) 13 BUN (7 - 17 mg/dL) 75 H Creatinine (0.5 - 1.0 mg/dL) 3.1 H Estimated GFR (>60 ml/min) 15 L Glucose (65 - 99 mg/dL) 197 H Calcium (8.4 - 10.2 mg/dL) 8.2 L Phosphorus (2.5 - 4.5 mg/dL) 5.4 H Magnesium (1.6 - 2.3 mg/dL) 1.7 Total Bilirubin (0.2 - 1.3 mg/dL) 0.3 AST (14 - 36 U/L) 18 ALT (9 - 52 U/L) 34 Lactate Dehydrogenase (313 - 618 U/L) 526 Albumin (3.5 - 5.0 g/dL) 2.2 L Hematology CBC w Diff NO MAN DIFF REQ NO MAN DIFF REQ WBC (4.8 - 10.8 /CUMM) 13.1 H 13.0 H RBC (4.20 - 5.40 /CUMM) 2.03 L 2.34 L Hgb (12.0 - 16.0 G/DL) 6.1 *L 7.0 *L Hct (37 - 47 %) 18.4 *L 21.3 L MCV (81.0 - 99.0 FL) 90.5 91.0 MCH (27.0 - 31.0 PG) 30.2 29.7 RDW (11.5 - 14.5 %) 17.7 H 18.1 H Plt Count (130 - 400 /CUMM) 310 352 MPV (7.4 - 10.4 FL) 6.9 L 6.9 L Gran % (42.2 - 75.2 %) 82.1 H 80.4 H Lymphocytes % (20.5 - 51.1 %) 10.2 L 11.4 L Monocytes % (1.7 - 9.3 %) 4.4 4.2 Eosinophils % (0 - 5 %) 2.7 3.3 Basophils % (0.0 - 2.0 %) 0.6 0.7 Absolute Granulocytes (1.4 - 6.5 /CUMM) 10.8 H 10.4 H Absolute Lymphocytes (1.2 - 3.4 /CUMM) 1.3 1.5 Absolute Monocytes (0.10 - 0.60 /CUMM) 0.6 0.6 Absolute Eosinophils (0.0 - 0.7 /CUMM) 0.3 0.4 Absolute Basophils (0.0 - 0.2 /CUMM) 0.1 0.1 PUBS MCHC (33.0 - 37.0 G/DL) 33.3 32.7 L 06/28 1420 Hematology CBC w Diff NO MAN DIFF REQ WBC (4.8 - 10.8 /CUMM) 11.3 H RBC (4.20 - 5.40 /CUMM) 2.15 L Hgb (12.0 - 16.0 G/DL) 6.5 *L Hct (37 - 47 %) 19.3 *L MCV (81.0 - 99.0 FL) 89.7 MCH (27.0 - 31.0 PG) 30.1 RDW (11.5 - 14.5 %) 18.6 H Plt Count (130 - 400 /CUMM) 345 MPV (7.4 - 10.4 FL) 6.6 L Gran % (42.2 - 75.2 %) 80.5 H Lymphocytes % (20.5 - 51.1 %) 12.4 L Monocytes % (1.7 - 9.3 %) 4.3 Eosinophils % (0 - 5 %) 2.2 Basophils % (0.0 - 2.0 %) 0.6 Absolute Granulocytes (1.4 - 6.5 /CUMM) 9.1 H Absolute Lymphocytes (1.2 - 3.4 /CUMM) 1.4 Absolute Monocytes (0.10 - 0.60 /CUMM) 0.5 Absolute Eosinophils (0.0 - 0.7 /CUMM) 0.2 Absolute Basophils (0.0 - 0.2 /CUMM) 0.1 PUBS MCHC (33.0 - 37.0 G/DL) 33.6 Imaging/Other Studies: 06/23/17: EKG- NSR @ 83, RBBB, LAHB, multiple APC, LVH, PRWP (without change from prior EKG) Please see [facility] for numerous imaging studies obtained from -06/29/17. 06/29/17: CT ABD & PELVIS W/O IV CONTRAST; CT CHEST WO IV CONTRAST- 1. *Limited noncontrast study. The [id number] is also limited. The lateral aspects of the patient's body are excluded from the field of view secondary to the large body habitus. In addition, there is significant artifact related to the patient's arms which are at their sides. 2. No definite evidence for an intrathoracic, abdominal or pelvic hematoma. *An active arterial bleed cannot be assessed on this noncontrast study. 3. Decrease in size of a right-sided hydropneumothorax compared to the prior chest CT. A chest tube in position. 06/29/17: XRY-PORTABLE CHEST XRAY- Persistent consolidation of right middle and right lower lobes and unchanged appearance of the loculated right pleural effusion with thoracostomy tube in place. 06/30/17: *EGD TO D3- Impression: 1. Superficial nonbleeding esophageal erosion at 35 cm, left intact. 2. 1+ nonerosive distal GERD with minimally irregular Z line at 40 cm, left intact. 3. Scant sliding hiatal hernia pouch, without any Freddie erosions. 4. Mildly inflamed gastric cardia, just below Z line on retroflexion, left intact. 5. Minimal prepyloric antral erythema, left intact. : XRY-PORTABLE CHEST XRAY- No pneumothorax. Right hemithorax unchanged with drainage catheter and likely partially loculated pleural effusion unchanged.
--- NOTE | 2017-07-01 10:23 | PN- Infect Dx ---
Subjective Subjective: Afebrile without complaints. She continues to have melanotic stools. Objective Last 24 Hrs of Vital Signs/I&O Vital Signs Date Time Temp Pulse Resp B/P B/P Pulse O2 O2 Flow FiO2 Mean Ox Delivery Rate 07/01 942 94 Nasal 2.0L Cannula 07/01 799 98.1 60 18 140/70 97 Nasal 3.0L Cannula 07/01 97 Nasal 2.0L Cannula 07/01 98.3 51 22 100/48 97 Nasal 2.0L Cannula 06/305 88 Room Air Room Air 06/30 2006 97 Nasal 3.0L Cannula 06/30 2006 97.6 66 18 130/54 97 Nasal 2.0L Cannula 06/30 1100 18 95 Room Air Intake & Output 07/01 1600 07/01 0000 Intake Total 728 800 Output Total 800 Balance -72 800 Intake, IV 488 Intake, Oral 240 800 Number 3 Bowel Movements Output, Stool 600 Output, Urine 200 Physical Exam Other Physical Findings: She appears comfortable in no acute distress Lungs are clear; chest tube in place on the right with 30 mL output yesterday Heart regular rhythm with no murmur Extremities chronic venous stasis changes to the right lower extremity Results Last 24 Hours of Lab Results: Laboratory Tests 07/01 07/01 0407 0025 Chemistry Sodium (137 - 145 mmol/L) 140 Potassium (3.5 - 5.1 mmol/L) 4.0 Chloride (98 - 107 mmol/L) 107 Carbon Dioxide (22 - 30 mmol/L) 21 L Anion Gap (5 - 16) 13 BUN (7 - 17 mg/dL) 73 H Creatinine (0.5 - 1.0 mg/dL) 2.6 H Estimated GFR (>60 ml/min) 19 L Glucose (65 - 99 mg/dL) 122 H Calcium (8.4 - 10.2 mg/dL) 8.4 Phosphorus (2.5 - 4.5 mg/dL) 5.4 H Magnesium (1.6 - 2.3 mg/dL) 1.6 Total Bilirubin (0.2 - 1.3 mg/dL) 0.5 AST (14 - 36 U/L) 123 H ALT (9 - 52 U/L) 82 H Albumin (3.5 - 5.0 g/dL) 2.4 L Hematology CBC w Diff NO MAN DIFF REQ NO MAN DIFF REQ WBC (4.8 - 10.8 /CUMM) 11.4 H 11.9 H RBC (4.20 - 5.40 /CUMM) 2.32 L 2.41 L Hgb (12.0 - 16.0 G/DL) 7.0 *L 7.2 *L Hct (37 - 47 %) 20.6 L 21.2 L MCV (81.0 - 99.0 FL) 88.9 88.1 MCH (27.0 - 31.0 PG) 30.2 29.7 RDW (11.5 - 14.5 %) 16.3 H 16.6 H Plt Count (130 - 400 /CUMM) 251 255 MPV (7.4 - 10.4 FL) 6.9 L 6.5 L Gran % (42.2 - 75.2 %) 77.3 H 82.6 H Lymphocytes % (20.5 - 51.1 %) 13.6 L 9.4 L Monocytes % (1.7 - 9.3 %) 5.1 5.0 Eosinophils % (0 - 5 %) 3.2 2.5 Basophils % (0.0 - 2.0 %) 0.8 0.5 Absolute Granulocytes (1.4 - 6.5 /CUMM) 8.8 H 9.9 H Absolute Lymphocytes (1.2 - 3.4 /CUMM) 1.6 1.1 L Absolute Monocytes (0.10 - 0.60 /CUMM) 0.6 0.6 Absolute Eosinophils (0.0 - 0.7 /CUMM) 0.4 0.3 Absolute Basophils (0.0 - 0.2 /CUMM) 0.1 0.1 PUBS MCHC (33.0 - 37.0 G/DL) 34.0 33.7 06/30 06/30 1715 1054 Hematology CBC w Diff NO MAN DIFF REQ NO MAN DIFF REQ WBC (4.8 - 10.8 /CUMM) 12.1 H 13.0 H RBC (4.20 - 5.40 /CUMM) 2.55 L 2.64 L Hgb (12.0 - 16.0 G/DL) 7.6 L 7.8 L Hct (37 - 47 %) 22.5 L 23.2 L MCV (81.0 - 99.0 FL) 88.3 87.7 MCH (27.0 - 31.0 PG) 29.7 29.7 RDW (11.5 - 14.5 %) 16.7 H 16.3 H Plt Count (130 - 400 /CUMM) 246 249 MPV (7.4 - 10.4 FL) 6.7 L 6.9 L Gran % (42.2 - 75.2 %) 82.6 H 84.6 H Lymphocytes % (20.5 - 51.1 %) 9.8 L 9.6 L Monocytes % (1.7 - 9.3 %) 4.8 3.7 Eosinophils % (0 - 5 %) 2.4 1.8 Basophils % (0.0 - 2.0 %) 0.4 0.3 Absolute Granulocytes (1.4 - 6.5 /CUMM) 10.0 H 11.0 H Absolute Lymphocytes (1.2 - 3.4 /CUMM) 1.2 1.2 Absolute Monocytes (0.10 - 0.60 /CUMM) 0.6 0.5 Absolute Eosinophils (0.0 - 0.7 /CUMM) 0.3 0.2 Absolute Basophils (0.0 - 0.2 /CUMM) 0 0 PUBS MCHC (33.0 - 37.0 G/DL) 33.7 33.9 Last 24 Hours of Drew Results: No new cultures Recent Imaging Studies: Chest x-ray July 01 unchanged with persistent loculated pleural effusion along the lateral right chest wall Assessment/Plan Impression: Overall improvement, with temperatures remaining normal and with white blood cell count nearly normal on Unasyn now 8 days status post right thoracotomy with drainage of an empyema (secondary to Haemophilus influenzae) and decortication of the right lower lobe, with a recent CT of the chest revealing a decrease in size of the right hydropneumothorax. Her anemia is most likely secondary to a GI bleed, with her upper endoscopy nonrevealing and with plans for a colonoscopy in the a.m. Suggestion: 1. Await colonoscopy in the a.m. 2. Further management of her right chest tube and hydropneumothorax per Thoracic surgery 3. Continue Unasyn
--- NOTE | 2017-07-01 10:41 | PN- Att Addend ---
Attending Addendum Attending Brief Note Patient sitting comfortably in bed. Her vital signs are stable no fever but had an upper endoscopy yesterday by results noted and it was supposed to have a colonoscopy this morning, had some rectal bleeding and GI deferred the procedure until tomorrow. Patient has had several transfusions, surgery on standby. We will monitor her H&H slowly transfuse if necessary. Her white count is down continue all other treatments as per thoracic surgery and infectious diseases. Intake & Output 07/01 1600 07/01 0400 06/30 0400 06/29 1600 06/29 040 Intake Total 728 271 850 2702 1930 1280 Output Total 800 1530 1330 1867 1000 Balance -72 800 -605 700 63 280 Intake, Blood 350 690 340 370 Product Intake, IV 488 575 260 130 130 Intake, Oral 240 800 0 1080 1460 780 Number 3 5 6 4 4 Bowel Movements Output, Chest 30 30 17 Tube Drainage Output, Stool 600 Output, Urine 200 1500 1300 1850 1000 Patient 253 lb 246 lb Weight Weight Bed scale Measurement Method Current Medications Sig/[place] Start time Last Medication Dose Route Stop Time Status Admin Acetaminophen 1,000 MG Q6P PRN 06/19 1130 AC 06/25 N/A 1 UNIT IV 1527 Albuterol Sulfate 3 ML BID 06/30 2200 AC 07/01 INH 0931 Albuterol Sulfate 3 ML EVERY 4 HRS/AWAKE 06/26 1234 DC 06/30 INH 0818 Ampicillin Sodium/ 3,000 MG Q8H 06/23 1600 AC 07/01 Sulbactam Sodium IV 0814 Sodium Chloride 100 ML Atorvastatin Calcium 40 MG 1700 06/15 1700 AC 06/29 PO 1651 Calcium Carbonate 500 MG DAILY 06/21 1000 AC 07/01 PO 1006 Chlorhexidine 1 GM .STK-MED ONE 06/30 1507 DC Gluconate TOP 06/30 1508 Dextrose/Water 1,000 ML Q13H 06/30 0815 DC 07/01 IV 0009 Docusate Sodium 100 MG BID 06/12 2359 AC 06/28 PO 0853 Hydromorphone HCl 2 MG Q4P PRN 06/27 1115 AC 07/01 IV 0204 Hydromorphone HCl 1.2 MG Q4-6 PRN PRN 06/24 1100 AC 06/27 IV 0522 Insulin Aspart 0 TIDAC/HS 07/01 1200 AC SC Insulin Aspart 0 Q4 06/30 1000 DC 07/01 SC 0221 Insulin Detemir 15 UNITS BID 07/01 1000 07/01 SC 1005 Ketamine HCl 50 MG .STK-MED ONE 06/30 1321 DC IM 06/30 1322 Lidocaine 50 ML .STK-MED ONE 06/30 1507 DC [facility] 06/30 1508 Lidocaine 1 PAT DAILY@1700 06/20 1700 06/27 EXT 1644 Melatonin 5 MG AT BEDTIME 06/21 2200 06/30 PO 2220 Midazolam HCl 2 MG .STK-MED ONE 06/30 1321 DC IM 06/30 1322 Nitroglycerin 0.5 GM Q6P PRN 06/15 1830 [facility] Oxycodone HCl 40 MG Q12 06/25 2200 07/01 PO 0812 Oxycodone HCl 10 MG Q4P PRN 06/23 1730 IN 06/25 PO 0944 Oxycodone HCl 20 MG Q4P PRN 06/23 1730 IN 06/27 PO 0257 Pantoprazole Sodium 40 MG DAILY 06/30 1000 07/01 IV 0814 Polyethylene Glycol 0.5 GAL ONCE ONE 06/30 1915 DC 06/30 PO 06/30 1916 2220 Pregabalin 75 MG BID 06/13 2200 07/01 PO 0812 Senna/Docusate Sodium 1 TAB BID 06/27 1145 06/28 PO 0853 Sodium Chloride 2 SPRAY Q4P PRN 06/27 0015 06/27 TREY 0209 Tiotropium [place] 1 PUF DAILY 06/14 1000 07/01 INH 0814 Zinc Oxide 1 JEVON BID 06/30 1248 07/01 TOP 1005 Laboratory Tests 07/01/17 0407: Anion Gap 13, Estimated GFR 19 L, Glucose 122 H, Calcium 8.4, Phosphorus 5.4 H, Magnesium 1.6, Total Bilirubin 0.5, AST 123 H, ALT 82 H, Albumin 2.4 L, CBC w Diff NO MAN DIFF REQ, RBC 2.32 L, MCV 88.9, MCH 30.2, RDW 16.3 H, MPV 6.9 L, Gran % 77.3 H, Lymphocytes % 13.6 L, Monocytes % 5.1, Eosinophils % 3.2, Basophils % 0.8, Absolute Granulocytes 8.8 H, Absolute Lymphocytes 1.6, Absolute Monocytes 0.6, Absolute Eosinophils 0.4, Absolute Basophils 0.1, [facility] MCHC 34.0 07/01/17 0025: CBC w Diff NO MAN DIFF REQ, RBC 2.41 L, MCV 88.1, MCH 29.7, RDW 16.6 H, MPV 6.5 L, Gran % 82.6 H, Lymphocytes % 9.4 L, Monocytes % 5.0, Eosinophils % 2.5 , Basophils % 0.5, Absolute Granulocytes 9.9 H, Absolute Lymphocytes 1.1 L, Absolute Monocytes 0.6, Absolute Eosinophils 0.3, Absolute Basophils 0.1, [facility] MCHC 33.7 06/30/17 1715: CBC w Diff NO MAN DIFF REQ, RBC 2.55 L, MCV 88.3, MCH 29.7, RDW 16.7 H, MPV 6.7 L, Gran % 82.6 H, Lymphocytes % 9.8 L, Monocytes % 4.8, Eosinophils % 2.4 , Basophils % 0.4, Absolute Granulocytes 10.0 H, Absolute Lymphocytes 1.2, Absolute Monocytes 0.6, Absolute Eosinophils 0.3, Absolute Basophils 0, [facility] 06/30/17 1054: CBC w Diff NO MAN DIFF REQ, RBC 2.64 L, MCV 87.7, MCH 29.7, RDW 16.3 H, MPV 6.9 L, Gran % 84.6 H, Lymphocytes % 9.6 L, Monocytes % 3.7, Eosinophils % 1.8 , Basophils % 0.3, Absolute Granulocytes 11.0 H, Absolute Lymphocytes 1.2, Absolute Monocytes 0.5, Absolute Eosinophils 0.2, Absolute Basophils 0, [facility] MCHC 33.9 06/30/17 0524: Anion Gap 11, Estimated GFR 17 L, Glucose 154 H, Calcium 8.1 L, Phosphorus 5.2 H, Magnesium 1.6, Total Bilirubin 0.6, AST 33, ALT 43, Albumin 2.1 L, PT 14.8 H, INR 1.41 H, Fibrinogen Activity 356, D-Dimer High Sensitivty 3236 H, Haptoglobin Pending 06/30/17 0000: CBC w Diff Cancelled, WBC Cancelled, RBC Cancelled, Hgb Cancelled, Hct Cancelled , MCV Cancelled, MCH Cancelled, RDW Cancelled, Plt Count Cancelled, MPV Cancelled, [facility] MCHC Cancelled 06/29/17 2316: CBC w Diff MAN DIFF ORDERED, RBC 2.31 L, MCV 88.8, MCH 29.7, RDW 16.0 H, MPV 6.7 L, Gran % 85.6 H, Lymphocytes % 7.6 L, Monocytes % 4.4, Eosinophils % 2.1 , Basophils % 0.3, Absolute Granulocytes 11.7 H, Segmented Neutrophils 90 H, Absolute Lymphocytes 1.0 L, Lymphocytes 5 L, Monocytes 2, Absolute Monocytes 0.6, Eosinophils 3, Absolute Eosinophils 0.3, Absolute Basophils 0, Platelet Estimate ADEQUATE, Polychromasia 1+, Poikilocytosis 1+, Basophilic Stippling 1+, Ovalocytes 1+, [facility] MCHC 33.5, Fld Total RBCs Counted 100 06/29/17 2200: CBC w Diff Cancelled, WBC Cancelled, RBC Cancelled, Hgb Cancelled, Hct Cancelled , MCV Cancelled, MCH Cancelled, RDW Cancelled, Plt Count Cancelled, MPV Cancelled, [facility] MCHC Cancelled 06/29/17 1405: CBC w Diff NO MAN DIFF REQ, RBC 2.07 L, MCV 90.1, MCH 30.4, RDW 16.4 H, MPV 6.7 L, Gran % 82.3 H, Lymphocytes % 10.5 L, Monocytes % 4.6, Eosinophils % 2.1, Basophils % 0.5, Absolute Granulocytes 9.5 H, Absolute Lymphocytes 1.2, Absolute Monocytes 0.5, Absolute Eosinophils 0.2, Absolute Basophils 0.1, [facility] MCHC 33.7 06/29/17 0430: Anion Gap 13, Estimated GFR 15 L, Glucose 197 H, Calcium 8.2 L, Phosphorus 5.4 H, Magnesium 1.7, Total Bilirubin 0.3, AST 18, ALT 34, Lactate Dehydrogenase 526, Albumin 2.2 L, CBC w Diff NO MAN DIFF REQ, RBC 2.03 L, MCV 90.5, MCH 30.2, RDW 17.7 H, MPV 6.9 L, Gran % 82.1 H, Lymphocytes % 10.2 L, Monocytes % 4.4, Eosinophils % 2.7, Basophils % 0.6, Absolute Granulocytes 10.8 H, Absolute Lymphocytes 1.3, Absolute Monocytes 0.6, Absolute Eosinophils 0.3, Absolute Basophils 0.1, [facility] MCHC 33.3 06/28/17 2130: CBC w Diff NO MAN DIFF REQ, RBC 2.34 L, MCV 91.0, MCH 29.7, RDW 18.1 H, MPV 6.9 L, Gran % 80.4 H, Lymphocytes % 11.4 L, Monocytes % 4.2, Eosinophils % 3.3, Basophils % 0.7, Absolute Granulocytes 10.4 H, Absolute Lymphocytes 1.5, Absolute Monocytes 0.6, Absolute Eosinophils 0.4, Absolute Basophils 0.1, [facility] MCHC 32.7 L 06/28/17 1420: CBC w Diff NO MAN DIFF REQ, RBC 2.15 L, MCV 89.7, MCH 30.1, RDW 18.6 H, MPV 6.6 L, Gran % 80.5 H, Lymphocytes % 12.4 L, Monocytes % 4.3, Eosinophils % 2.2, Basophils % 0.6, Absolute Granulocytes 9.1 H, Absolute Lymphocytes 1.4, Absolute Monocytes 0.5, Absolute Eosinophils 0.2, Absolute Basophils 0.1, [facility] MCHC 33.6 06/28/17 1230: Urinalysis LIGHT H, Urine Color YEL, Urine Clarity HAZY H, Urine pH 6.0, Ur Specific [place] 1.020, Urine Protein 100 H, Urine Ketones NEG, Urine Nitrite NEG, Urine Bilirubin NEG, Urine Urobilinogen 0.2, Ur Leukocyte Esterase MOD H, Ur Microscopic SEDIMENT EXAMINED, Urine RBC 1-3, Urine WBC 25-50 H, Ur Epithelial Cells MOD H, Urine Bacteria FEW H, Urine Mucus FEW, Micro UA Comment [place] H, Urine Hemoglobin SMALL H, Urine Glucose 250 H Microbiology 06/28 1229 URINE ROUT: Urine Culture - COMP YEAST Microbiology 06/28 1229 URINE ROUT: Urine Culture - COMP YEAST Vital Signs Date Time Temp Pulse Resp B/P B/P Pulse O2 O2 Flow FiO2 Mean Ox Delivery Rate 07/01 0943 94 Nasal 2.0L Cannula 07/01 0800 98.1 60 18 140/70 97 Nasal 3.0L Cannula 07/01 0000 97 Nasal 2.0L Cannula 07/01 0000 98.3 51 22 100/48 97 Nasal 2.0L Cannula 06/305 88 Room Air Room Air 06/30 2006 97 Nasal 3.0L Cannula 06/30 2006 97.6 66 18 130/54 97 Nasal 2.0L Cannula 06/30 1100 18 95 Room Air
--- NOTE | 2017-07-01 12:54 | PN- Thoracic Surgery ---
Subjective Subjective: PT comfortable. stable, no complaints, no sob. feeling better. Objective Vital Signs and I&Os Vital Signs Date Time Temp Pulse Resp B/P B/P Pulse O2 O2 Flow FiO2 Mean Ox Delivery Rate 07/01 942 94 Nasal 2.0L Cannula 07/01 799 97 Nasal 2.0L Cannula 07/01 799 98.1 60 18 140/70 97 Nasal 3.0L Cannula 07/01 97 Nasal 2.0L Cannula 07/01 98.3 51 22 100/48 97 Nasal 2.0L Cannula 06/30 2054 88 Room Air Room Air 06/30 2006 97 Nasal 3.0L Cannula 06/30 2006 97.6 66 18 130/54 97 Nasal 2.0L Cannula Intake & Output 07/01 1600 07/01 0000 06/30 1600 06/30 0000 Intake Total 728 800 461 819 2493 Output Total 110 800 040 224 7583 Balance -110 -72 800 -330 -345 770 Intake, Blood 350 690 Product Intake, IV 488 575 130 130 Intake, Oral 240 800 0 1080 Number 3 3 3 5 Bowel Movements Output, Chest 110 5 25 30 Tube Drainage Output, Stool 600 Output, Urine 200 192 691 2486 Patient 253 lb Weight Weight Bed scale Measurement Method Physical Exam: wdwn, aox3, nad. R lung sounds slightly diminished. incision sites cdi, no erythema, no drainage. R chest tube in place. this was removed without incident. xeroform occlusive dressing applied. pt tolerated well without complications. lung sounds noted throughout, no suspected ptx. Assessment/Plan Assessment/Plan sp thoracotomy for empyema with chest tube placement x2 both tubes now removed. pt stable for CT surgery standpoint. fup as out pt with Dr Rebolledo please call with questions.
--- NOTE | 2017-07-01 15:47 | PN- Cardiology ---
Subjective Subjective: * Patient is feeling much improved with no shortness of breath and much less right chest discomfort. She does not like the prep for her colonoscopy. * sinus rhythm * creatinine improved to 2.6 * elevation of hepatic transaminases. * decreasing H/H Objective Vital Signs and I&Os Vital Signs Date Time Temp Pulse Resp B/P B/P Pulse O2 O2 Flow FiO2 Mean Ox Delivery Rate 07/01 0843 94 Nasal 2.0L Cannula 07/01 799 97 Nasal 2.0L Cannula 07/01 799 98.1 60 18 140/70 97 Nasal 3.0L Cannula 07/01 97 Nasal 2.0L Cannula 07/01 98.3 51 22 100/48 97 Nasal 2.0L Cannula 06/30 2054 88 Room Air Room Air 06/30 2006 97 Nasal 3.0L Cannula 06/30 2006 97.6 66 18 130/54 97 Nasal 2.0L Cannula Intake & Output 07/01 1600 07/01 0700 07/01 0000 06/30 1600 06/30 0000 Intake Total 1760 728 800 467 303 3016 Output Total 1310 800 254 353 8485 Balance 450 -72 800 -330 -345 770 Intake, Blood 350 690 Product Intake, IV 360 488 575 130 130 Intake, Oral 1400 240 800 0 1080 Number 3 3 3 3 5 Bowel Movements Output, Chest 110 5 25 30 Tube Drainage Output, Stool 600 Output, Urine 1200 200 866 434 8418 Patient 253 lb Weight Weight Bed scale Measurement Method Physical Exam: General WD/overweight female in NAD; alert and oriented x s Neck: no JVD, no carotid bruit Heart: RRR Lungs: clear bilaterally Extremities: no edema, Left AKA Assessment/Plan Assessment/Plan * In consideration of the patient's multiple risk factors for coronary artery disease myocardial ischemia related to increased myocardial demand cannot be 100 % excluded and the patient should have risk stratification with a stress test at some point in time. Continue NTG. Hold her statin since this may be causing a rise in her hepatic transaminases. * No anticoagulation due to rectal bleeding. Continue telemetry? Yes
[2017-07-01 15:58] VITALS: BP 120/50
[2017-07-01 23:09] LABS: ABSOLUTE BASOPHIL COUNT 0.1 /CUMM (0.0-0.2); ABSOLUTE EOSINOPHIL COUNT 0.3 /CUMM (0.0-0.7); ABSOLUTE GRANULOCYTE CT 8.6 /CUMM (1.4-6.5); ABSOLUTE LYMPH COUNT 1.2 /CUMM (1.2-3.4); ABSOLUTE MONOCYTE COUNT 0.5 /CUMM (0.10-0.60); BASOPHIL % 0.9 % (0.0-2.0); EOSINOPHIL % 3.1 % (0-5); HEMATOCRIT 21.8 % (37-47); MEAN CORPUSCULAR HGB 29.4 PG (27.0-31.0); MEAN CORPUSCULAR HGB CONC 32.8 G/DL (33.0-37.0); MEAN CORPUSCULAR VOLUME 89.7 FL (81.0-99.0); MEAN PLATELET VOLUME 6.1 FL (7.4-10.4); PLATELET COUNT 262 /CUMM (130-400); RED BLOOD CELL CT 2.43 /CUMM (4.20-5.40); WHITE BLOOD CELL COUNT 10.8 /CUMM (4.8-10.8)
[2017-07-01 23:47] VITALS: BP 136/70
[2017-07-02 07:00] VITALS: BP 118/56
--- NOTE | 2017-07-02 07:56 | PN- Gastroenterology ---
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 She also had some symptoms of UTI. On admission, WBC 47K (93S/5B) BUN/Cr 65/3.7, GFR 12, Na 134, K 3.0, HCO3 20, AG 18, nl lactate 1.6, TBil 0.4, alk phos 243, AST/ALT 42/ 52, albumin 2.9, globulin 3.9, troponin 0.23, proBNP 2520, INR 1.33, ABG 7.26/ 40/77 on 6L. U/A: >75 WBCs. Chest x-ray- opacity in the right hemithorax. Doppler of the right lower extremity was negative for DVT, but revealed a thrombus within the greater saphenous vein of the proximal thigh, extending to the saphenofemoral junction. The patient has been on numerous antibiotics and steroids here. She was seen by numerous consultants, including medicine, cardiology, endocrine, thoracic surgery, pulmonary, ID, & renal. She was found to have an empyema with complicated effusion with hemorrhagic fluid (06/13/17: 26,800 RBC, 12,750 WBC with 95% PMN), & underwent 06/23/17: right thoracotomy with drainage of empyema and decortication of RLL. 1400 mL of serosanguineous fluid was drained from the thoracic cavity with placement of 2 chest tubes. Additionally, she had a ? PE, with indeterminate 06/16/17: VQ scan. The patient was placed on Unasyn for H. influenza, as she had positive blood cultures. She received numerous transfusions of PRBC. Again, she did have serosanguineous fluid coming out of the chest tube, but did have one stool positive for occult blood, prompting the GI consult. She was on aspirin 325 mg po daily from 06/25/17-06/28/17. There were no NSAIDS. I did not see any A/C therapy in the computer, but I later found out the patient was on a course of IV heparin earlier this admission. *She had received a total of 8u PRBC from -06/29/17. There have been no coags sent since 06/12/17. The patient denied any vaginal spotting or gross hematuria. She did have intermittent hemoptysis and coughed up some blood while I was in the room during the 06/29/17: GI consult. She was very nervous. She denied any GERD, odynophagia, dysphagia, or definite early satiety, although she was somewhat unsure, regarding the latter. She denied any abdominal pain, hematemesis, or melena. She denied any diarrhea, constipation, obstipation, tenesmus, or rectal bleeding. She never had an EGD or colonoscopy. There is no family history of GI CA, GI disease, or inherited liver disease. She tolerated solids po today. She currently denied any fevers, chills, jaundice, or significant weight loss. 10/13/16: SPEP- no monoclonal gammopathy, with elevated acute phase proteins. 06/12/17: PT 13.9, INR 1.33, PTT 71 06/12/17: troponin 0.23-> 0.25-> 0.18 06/28/17: U/A- pyuria, without gross hematuria. 06/29/17: WBC 11.5, H/H 6.3/18.6 (*prior to 7th u PRBC), MCV 90.1, RDW 16.4, PLT 267, glucose 197, BUN/Cr 75/3.1, GFR 15, Na 141, K 4.4, HCO3 21, AG 13, Mg 1.7, Ca 8.2, PO4 5.4, alb 2.2, TBil 0.3, AST 18, ALT 34 06/23/17: EKG- NSR @ 83, RBBB, LAHB, multiple APC, LVH, PRWP (without change from prior EKG) Please see [facility] computer for numerous imaging studies obtained from -06/29/17. 06/29/17: CT ABD & PELVIS W/O IV CONTRAST; CT CHEST WO IV CONTRAST- 1. *Limited noncontrast study. The [id number] is also limited. The lateral aspects of the patient's body are excluded from the field of view secondary to the large body habitus. In addition, there is significant artifact related to the patient's arms which are at their sides. 2. No definite evidence for an intrathoracic, abdominal or pelvic hematoma. *An active arterial bleed cannot be assessed on this noncontrast study. 3. Decrease in size of a right-sided hydropneumothorax compared to the prior chest CT. A chest tube in position. 06/29/17: XRY-PORTABLE CHEST XRAY- Persistent consolidation of right middle and right lower lobes and unchanged appearance of the loculated right pleural effusion with thoracostomy tube in place. I was not convinced at the time of the 06/29/17: GI consult that the primary source of the patient's severe multifactorial anemia requiring 8u PRBC to date was GI in nature. The patient only had brown, OB positive stool. I would have expected reddish or maroon blood per rectum, melena, or hematemesis for presumed active GI bleeding, to account for blood loss of this magnitude. Coags had not been checked since 06/12/17. I doubt DIC with normal platelet count. I also doubt hemolysis with normal TBil. The patient's initial chest tap was bloody & she just had some mild hemoptysis. The 06/29/17: CT CAP was somewhat limited in looking for active bleeding without IV contrast, which was limited by the patient's CKD. No gross retroperitoneal bleeding was seen. The patient was extremely anxious. The risks and benefits of EGD were discussed with the patient, and she reluctantly agreed to proceed with this tomorrow, on 06/30/17. ASA is on hold. 06/29/17: LDH 526. 06/30/17: WBC 13.0, H/H 7.8/23.2 (post 9th u PRBC), glucose 154, BUN/Cr 85/2.8, GFR 17, Na 141, K 4.1, HCO3 20, AG 11, Ca 8.1, PO4 5.2, alb 2.1, TBil 0.6, AST 33, ALT 43, PT 14.8, INR 1.41, nl fibrinogen 356, 06/30/17: *Haptoglobin- 218 (mildly elevated, not low, not consistent with hemolysis). *As of 06/30/17, the patient remained hemodynamically stable and afebrile. Multiple consultants' notes (medicine, endocrine, pulmonary, ID, CTS, renal, etc.) appreciated. She had received a total of 9u PRBC this admission, to date. She had no new complaints overnight. There was no overt hematemesis, rectal bleeding, or melena, just intermittent OB positive brown stool. She denied any abdominal pain, chest pain, or increased shortness of breath. Her right-sided chest tube had a small amount of serosanguineous output, without bright red blood. She denied any fevers, chills, or jaundice. IV Protonix 40 mg daily had been added 06/30/17. She remained on IV Unasyn & was NPO for EGD. She was hungry. 06/30/17: *EGD TO D3- Impression: 1. Superficial nonbleeding esophageal erosion at 35 cm, left intact. 2. 1+ nonerosive distal GERD with minimally irregular Z line at 40 cm, left intact. 3. Scant sliding hiatal hernia pouch, without any Freddie erosions. 4. Mildly inflamed gastric cardia, just below Z line on retroflexion, left intact. 5. Minimal prepyloric antral erythema, left intact. : XRY-PORTABLE CHEST XRAY- No pneumothorax. Right hemithorax unchanged with drainage catheter and likely partially loculated pleural effusion unchanged. 07/01/17: WBC 11.4, H/H 7.0/20.6, MCV 88.9, RDW 16.3, PLT 251, BUN/Cr 73/2.6, Na 140, K 4.0, HCO3 21, AG 13, Ca 8.4, Mg 1.6, PO4 5.4, TBil 0.5, *AST 123, *ALT 82 *As of 07/01/17, patient remained hemodynamically stable & afebrile, with O2 sat 2L 94%. *She reportedly had a dark bowel movement x 1 the evening of 06/30/17, and she was given 1/2 the gallon of GoLYTELY, in case her anticipated baseline colonoscopy scheduled for 07/02/17 had to be moved up. She remained hemodynamically stable overnight, without any overt bleeding today. Her chronically low Hgb drifted down a scant amount. Otherwise, she had no new complaints. She was anxious and agitated. She was threatening not to drink any more of the bowel prep. Her right chest tube remained in place. 06/1017: WBC 10.8, H/H 7.1/21.8, PLT 262, BUN/Cr 73/2.6, GFR 19, Na 140, K 4.0, HCO3 21, AG 13 07/02/17: *repeat CBC, LFT, INR, GFR- pending. *As of 07/02/17, patient remained hemodynamically stable and afebrile with O2 sat 2L 92%. She received 1 additional unit PRBC on 07/01/17. *06/30/17: haptoglobin 218 ( mildly elevated, not low, going against hemolysis). Her right-sided chest tube was pulled 07/01/17, although I did not see a follow-up CXR. When she drank almost all of the GoLYTELY. Her RN denied any overt GI bleeding or melena. The patient denied any new symptoms and was comfortable. She remained anemic. Her Atorvastatin was held 07/01/17, keeping in mind her elevated transaminases. Multiple consultants' notes were appreciated. *SUGGEST: *Await colonoscopy later today 07/02/17, as no active UGI bleeding seen on 03/09: EGD. The risks and benefits of colonoscopy were discussed with the patient, and she agreed to proceed. Informed consent for colonoscopy was obtained from the patient. I am not certain that the majority of the patient's profound anemia is purely from GI bleeding. If colonoscopy negative, consideration for outpatient [facility]. *Continue empiric Protonix 40 mg IV daily.*Check CBC QD for now. T&C 2u PRBC. Keep Hgb > 7 (no documented ASHD). Supplemental O2. Strict I/O's. *Check peripheral smear. *Consider checking FDP (nl fibrinogen). *Follow-up with pulmonary & CTS for potential non-GI sources of bleeding. DVT prophylaxis with mechanical ALPS. Will defer to ID regarding duration of antibiotics for H. flu bacteremia. Elevated transaminases noted- ? due to Atorvastatin (held) vs. Unasyn > passive congestion (please follow LFTs & speak with ID; minimize Tylenol use). Further GI recommendations to follow, depending on clinical course. The above was discussed with the medical housestaff in depth. I also previously discussed the case with Dr. Munoz, Dr. Bartlett, & Dr. Rebolledo. Problem List: 1. Acute blood loss anemia 2. Occult blood positive stool 3. Elevated transaminase level 4. Empyema 5. Hemoptysis 6. CHRONIC RENAL FAILURE Subjective Subjective: 06/1017: WBC 10.8, H/H 7.1/21.8, PLT 262, BUN/Cr 73/2.6, GFR 19, Na 140, K 4.0, HCO3 21, AG 13 07/02/17: *repeat CBC, LFT, INR, GFR- pending. *As of 07/02/17, patient remained hemodynamically stable and afebrile with O2 sat 2L 92%. She received 1 additional unit PRBC on 07/01/17. *06/30/17: haptoglobin 218 ( mildly elevated, not low, going against hemolysis). Her right-sided chest tube was pulled 07/01/17, although I did not see a follow-up CXR. When she drank almost all of the GoLYTELY. Her RN denied any overt GI bleeding or melena. The patient denied any new symptoms and was comfortable. She remained anemic. Her Atorvastatin was held 07/01/17, keeping in mind her elevated transaminases. Multiple consultants' notes were appreciated. Review of Systems: Full 14 point review of systems otherwise noncontributory, and as above. Review of Systems Constitutional: Reports: malaise. Denies: chills, diaphoresis, fever, weakness, unexplained weight loss. EENTM: Denies: blurred vision, double vision, visual changes, eye pain, eye drainage, eye tearing, icterus, ear discharge, ear pain, ear redness, hearing changes, nasal congestion, epistaxis, nasal pain, throat pain, throat swelling, mouth pain, tooth pain. Cardiovascular: Reports: peripheral edema (trace). Denies: chest pain, edema, orthopena, palpitations, syncope. Respiratory: Reports: cough- improved, hemoptysis- improved. Denies: orthopnea, short of breath, sputum production, stridor, wheezing. GI: Reports: ? melena x 1. Denies: abdominal pain, bloating, constipation, diarrhea, distention, bowel incontinence, nausea, bloody stool, changes in stool, vomiting, steatorrhea. Genitourinary: Denies: discharge, dysuria, frequency, hematuria, hesitation, nocturia, pain, urgency. Musculoskeletal: Denies: back pain, gout, joint pain, joint swelling, muscle pain, muscle stiffness, neck pain. Skin: Denies: cysts, change in skin color, change in hair/nails, dryness, erythema, jaundice, lesions, lymphangitis, lumps, moles, rash. Neurological/Psychological: Reports: anxiety, depressed, paresthesia (hx neuropathy). Denies: ataxia, cognitive dysfunction, confusion, dementia, emotional problems, headache, numbness, pre-existing deficit, petit mal seizures, tingling, tremors, tonic-clonic seizures, unable to move lower ext, unable to move upper ext, weakness. Hematologic/Endocrine: Denies: bruising, bleeding, polyuria, polydipsia. Immunologic/Allergic: Denies: splenectomy, HIV/AIDS, lymphadenopathy. All Other Systems: Reviewed and Negative Objective Vital Signs and I&Os Vital Signs Date Time Temp Pulse Resp B/P B/P Pulse O2 O2 Flow FiO2 Mean Ox Delivery Rate 07/02 0700 97.9 64 20 118/56 90 07/02 0000 Room Air 07/01 2347 98.0 78 22 136/70 92 Room Air 07/01 1830 92 Room Air 07/01 1600 98 Room Air 07/01 1558 98.4 64 16 120/50 98 Room Air 07/01 0943 94 Nasal 2.0L Cannula Intake & Output 07/02 1600 07/02 0400 07/01 1600 07/01 0400 06/30 1600 06/30 0400 Intake Total 219 927 5270 679 124 0659 Output Total 271 207 2492 1530 1330 Balance -50 -300 378 800 -605 700 Intake, Blood 350 690 Product Intake, IV 300 848 575 260 Intake, Oral 50 200 1640 800 0 1080 Number 1 3 3 5 6 Bowel Movements Output, Chest 110 30 30 Tube Drainage Output, Stool 600 Output, Urine 360 291 0847 1500 1300 Patient 253 lb Weight Weight Bed scale Measurement Method Physical Exam: Well-developed, somewhat malnourished, chronically ill-appearing morbidly obese female, anxious, in no apparent distress. Sclera anicteric. Conjunctiva slightly pale. Oropharynx clear. No oral thrush. No aphthous ulcers. Edentulous. There is no adenopathy, thyromegaly, JVD, or HJR. No peripheral stigmata of inflammatory bowel disease or chronic liver disease on exam. No spiders on the anterior chest wall. Breast & pelvic exams: API. No CVA tenderness. No spine tenderness. Lungs: clear to A&P, with decreased BS at right base (chest tube on right pulled 07/01/17) & slightly prolonged expiratory phase. No wheezing, rales, or rhonchi. Heart exam: regular rate rhythm, S1 and S2, without any murmur. Abdominal exam: normal bowel sounds, soft obese belly, nontender, without guarding or rebound. No definite mass or organomegaly. No fluid shift. No pulsatile mass. No epigastric bruit. Repeat digital rectal exam 06/29/17 deferred per patient (*brown OB+ stool API on 06/28/17). Extremities: without cyanosis or clubbing. Post left BKA with prosthetic LLE. RLE with stasis dermatitis changes & 1+ edema, post amputation of right 1st & 3rd toes. No palpable cords. DJD. No palmar erythema. No Dupuytren's contractures. Distal pulses 1+ bilaterally. DTRs 2+ bilaterally. Alert and oriented x 3. Left handed. Motor 4/5 B/L. No tremor. No asterixis. A detailed exam for peripheral neuropathy was deferred, but is present by history. Current Medications: Current Medications Sig/Suleman Start time Last Medication Dose Route Stop Time Status Admin Acetaminophen 1,000 MG Q6P PRN 06/19 1130 AC 06/25 N/A 1 UNIT IV 1527 Albuterol Sulfate 3 ML BID 06/30 2200 AC 07/01 INH 1830 Ampicillin Sodium/ 3,000 MG Q8H 06/23 1600 AC 07/02 Sulbactam Sodium IV 0045 Sodium Chloride 100 ML Atorvastatin Calcium 40 MG 1700 06/15 1700 DC 07/01 PO 1615 Calcium Carbonate 500 MG DAILY 06/21 1000 AC 07/01 PO 1006 Dextrose/Water 1,000 ML Q13H 07/02 0000 AC 07/02 IV 0130 Dextrose/Water 1,000 ML Q13H 06/30 0815 DC 07/01 IV 0009 Docusate Sodium 100 MG BID 06/12 2359 AC 07/01 PO 2120 Hydromorphone HCl 1 MG ONCE ONE 07/01 1215 DC IV 07/01 1216 Hydromorphone HCl 2 MG Q4P PRN 06/27 1115 AC 07/02 IV 0622 Hydromorphone HCl 1.2 MG Q4-6 PRN PRN 06/24 1100 DC 06/27 IV 0522 Insulin Aspart 0 TIDAC/HS 07/01 1200 DC 07/01 SC 07/01 2330 1636 Insulin Aspart 0 Q4 06/30 1000 DC 07/01 SC 0221 Insulin Detemir 15 UNITS BID 07/01 1000 DC 07/01 SC 07/01 2330 2300 Insulin Human Regular 0 Q4 07/01 2340 AC 07/02 SC 0629 Lidocaine 1 PAT DAILY@1700 06/20 1700 07/01 EXT 1615 Magnesium Oxide 400 MG ONE ONE 07/01 1515 DC 07/01 PO 07/01 1516 1513 Magnesium Sulfate 1 GM Q2H 07/01 1500 DC Dextrose/Water 100 ML IV 07/01 1859 Melatonin 5 MG AT BEDTIME 06/21 2200 07/01 PO 2120 Nitroglycerin 0.5 GM Q6P PRN 06/15 1830 TOP Oxycodone HCl 40 MG Q12 06/25 2200 07/01 PO 2118 Pantoprazole Sodium 40 MG DAILY 06/30 1000 07/01 IV 0814 Pregabalin 75 MG BID 06/13 2200 AC 07/01 PO 2118 Senna/Docusate Sodium 1 TAB BID 06/27 1145 07/01 PO 2120 Sodium Chloride 2 SPRAY Q4P PRN 06/27 0015 AC 06/27 TREY 0209 Tiotropium [place] 1 PUF DAILY 06/14 1000 AC 07/01 INH 0814 Zinc Oxide 1 JEVON BID 06/30 1248 07/01 TOP 2128 Results Pertinent Lab Results: Laboratory Tests 07/02 07/01 07/01 0742 2255 1600 Chemistry Sodium Pending Potassium Pending Chloride Pending Carbon Dioxide Pending Anion Gap Pending BUN Pending Creatinine Pending Glucose Pending Calcium Pending Phosphorus Pending Magnesium Pending Total Bilirubin Pending AST Pending ALT Pending Albumin Pending Coagulation PT Pending INR Pending APTT Pending Hematology CBC w Diff Pending NO MAN DIFF REQ Cancelled WBC (4.8 - 10.8 /CUMM) Pending 10.8 Cancelled RBC (4.20 - 5.40 /CUMM) Pending 2.43 L Cancelled Hgb (12.0 - 16.0 G/DL) Pending 7.1 *L Cancelled Hct (37 - 47 %) Pending 21.8 L Cancelled MCV (81.0 - 99.0 FL) Pending 89.7 Cancelled MCH (27.0 - 31.0 PG) Pending 29.4 Cancelled RDW (11.5 - 14.5 %) Pending 16.0 H Cancelled Plt Count (130 - 400 /CUMM) Pending 262 Cancelled MPV (7.4 - 10.4 FL) Pending 6.1 L Cancelled Gran % (42.2 - 75.2 %) 80.0 H Lymphocytes % (20.5 - 51.1 %) 10.9 L Monocytes % (1.7 - 9.3 %) 5.1 Eosinophils % (0 - 5 %) 3.1 Basophils % (0.0 - 2.0 %) 0.9 Absolute Granulocytes (1.4 - 6.5 /CUMM) 8.6 H Absolute Lymphocytes (1.2 - 3.4 /CUMM) 1.2 Absolute Monocytes (0.10 - 0.60 /CUMM) 0.5 Absolute Eosinophils (0.0 - 0.7 /CUMM) 0.3 Absolute Basophils (0.0 - 0.2 /CUMM) 0.1 PUBS MCHC (33.0 - 37.0 G/DL) Pending 32.8 L Cancelled 07/01 07/01 0407 0025 Chemistry Sodium (137 - 145 mmol/L) 140 Potassium (3.5 - 5.1 mmol/L) 4.0 Chloride (98 - 107 mmol/L) 107 Carbon Dioxide (22 - 30 mmol/L) 21 L Anion Gap (5 - 16) 13 BUN (7 - 17 mg/dL) 73 H Creatinine (0.5 - 1.0 mg/dL) 2.6 H Estimated GFR (>60 ml/min) 19 L Glucose (65 - 99 mg/dL) 122 H Calcium (8.4 - 10.2 mg/dL) 8.4 Phosphorus (2.5 - 4.5 mg/dL) 5.4 H Magnesium (1.6 - 2.3 mg/dL) 1.6 Total Bilirubin (0.2 - 1.3 mg/dL) 0.5 AST (14 - 36 U/L) 123 H ALT (9 - 52 U/L) 82 H Albumin (3.5 - 5.0 g/dL) 2.4 L Hematology CBC w Diff NO MAN DIFF REQ MAN DIFF ORDERED WBC (4.8 - 10.8 /CUMM) 11.4 H 11.9 H RBC (4.20 - 5.40 /CUMM) 2.32 L 2.41 L Hgb (12.0 - 16.0 G/DL) 7.0 *L 7.2 *L Hct (37 - 47 %) 20.6 L 21.2 L MCV (81.0 - 99.0 FL) 88.9 88.1 MCH (27.0 - 31.0 PG) 30.2 29.7 RDW (11.5 - 14.5 %) 16.3 H 16.6 H Plt Count (130 - 400 /CUMM) 251 255 MPV (7.4 - 10.4 FL) 6.9 L 6.5 L Gran % (42.2 - 75.2 %) 77.3 H 82.6 H Lymphocytes % (20.5 - 51.1 %) 13.6 L 9.4 L Monocytes % (1.7 - 9.3 %) 5.1 5.0 Eosinophils % (0 - 5 %) 3.2 2.5 Basophils % (0.0 - 2.0 %) 0.8 0.5 Absolute Granulocytes (1.4 - 6.5 /CUMM) 8.8 H 9.9 H Segmented Neutrophils (42.2 - 75.2 %) 85 H Band Neutrophils (0.0 - 5.0 %) 1 Absolute Lymphocytes (1.2 - 3.4 /CUMM) 1.6 1.1 L Lymphocytes (20.5 - 51.1 %) 7 L Monocytes (1.7 - 9.3 %) 3 Absolute Monocytes (0.10 - 0.60 /CUMM) 0.6 0.6 Absolute Eosinophils (0.0 - 0.7 /CUMM) 0.4 0.3 Basophils (0.0 - 2.0 %) 2 Absolute Basophils (0.0 - 0.2 /CUMM) 0.1 0.1 Metamyelocytes (0.0 - 1.0 %) 1 Myelocytes (0 - 0 %) 1 H Platelet Estimate (ADEQUATE) ADEQUATE Hypochromic-Microcytic 2+ Poikilocytosis 1+ Anisocytosis 1+ Ovalocytes 1+ PUBS MCHC (33.0 - 37.0 G/DL) 34.0 33.7 06/30 06/30 1715 1054 Hematology CBC w Diff NO MAN DIFF REQ NO MAN DIFF REQ WBC (4.8 - 10.8 /CUMM) 12.1 H 13.0 H RBC (4.20 - 5.40 /CUMM) 2.55 L 2.64 L Hgb (12.0 - 16.0 G/DL) 7.6 L 7.8 L Hct (37 - 47 %) 22.5 L 23.2 L MCV (81.0 - 99.0 FL) 88.3 87.7 MCH (27.0 - 31.0 PG) 29.7 29.7 RDW (11.5 - 14.5 %) 16.7 H 16.3 H Plt Count (130 - 400 /CUMM) 246 249 MPV (7.4 - 10.4 FL) 6.7 L 6.9 L Gran % (42.2 - 75.2 %) 82.6 H 84.6 H Lymphocytes % (20.5 - 51.1 %) 9.8 L 9.6 L Monocytes % (1.7 - 9.3 %) 4.8 3.7 Eosinophils % (0 - 5 %) 2.4 1.8 Basophils % (0.0 - 2.0 %) 0.4 0.3 Absolute Granulocytes (1.4 - 6.5 /CUMM) 10.0 H 11.0 H Absolute Lymphocytes (1.2 - 3.4 /CUMM) 1.2 1.2 Absolute Monocytes (0.10 - 0.60 /CUMM) 0.6 0.5 Absolute Eosinophils (0.0 - 0.7 /CUMM) 0.3 0.2 Absolute Basophils (0.0 - 0.2 /CUMM) 0 0 PUBS MCHC (33.0 - 37.0 G/DL) 33.7 33.9 06/30 06/30 06/29 0524 0000 2316 Chemistry Sodium (137 - 145 mmol/L) 141 Potassium (3.5 - 5.1 mmol/L) 4.1 Chloride (98 - 107 mmol/L) 110 H Carbon Dioxide (22 - 30 mmol/L) 20 L Anion Gap (5 - 16) 11 BUN (7 - 17 mg/dL) 85 H Creatinine (0.5 - 1.0 mg/dL) 2.8 H Estimated GFR (>60 ml/min) 17 L Glucose (65 - 99 mg/dL) 154 H Calcium (8.4 - 10.2 mg/dL) 8.1 L Phosphorus (2.5 - 4.5 mg/dL) 5.2 H Magnesium (1.6 - 2.3 mg/dL) 1.6 Total Bilirubin (0.2 - 1.3 mg/dL) 0.6 AST (14 - 36 U/L) 33 ALT (9 - 52 U/L) 43 Albumin (3.5 - 5.0 g/dL) 2.1 L Coagulation PT (9.4 - 12.5 SEC) 14.8 H INR (0.90 - 1.19) 1.41 H Fibrinogen Activity (200 - 393 MG/DL) 356 D-Dimer High Sensitivty (0 - 243 ng/ml) 3236 H Hematology CBC w Diff Cancelled MAN DIFF ORDERED WBC (4.8 - 10.8 /CUMM) Cancelled 13.7 H RBC (4.20 - 5.40 /CUMM) Cancelled 2.31 L Hgb (12.0 - 16.0 G/DL) Cancelled 6.9 *L Hct (37 - 47 %) Cancelled 20.5 L MCV (81.0 - 99.0 FL) Cancelled 88.8 MCH (27.0 - 31.0 PG) Cancelled 29.7 RDW (11.5 - 14.5 %) Cancelled 16.0 H Plt Count (130 - 400 /CUMM) Cancelled 233 MPV (7.4 - 10.4 FL) Cancelled 6.7 L Gran % (42.2 - 75.2 %) 85.6 H Lymphocytes % (20.5 - 51.1 %) 7.6 L Monocytes % (1.7 - 9.3 %) 4.4 Eosinophils % (0 - 5 %) 2.1 Basophils % (0.0 - 2.0 %) 0.3 Absolute Granulocytes (1.4 - 6.5 /CUMM) 11.7 H Segmented Neutrophils (42.2 - 75.2 %) 90 H Absolute Lymphocytes (1.2 - 3.4 /CUMM) 1.0 L Lymphocytes (20.5 - 51.1 %) 5 L Monocytes (1.7 - 9.3 %) 2 Absolute Monocytes (0.10 - 0.60 /CUMM) 0.6 Eosinophils (0 - 5.0 %) 3 Absolute Eosinophils (0.0 - 0.7 /CUMM) 0.3 Absolute Basophils (0.0 - 0.2 /CUMM) 0 Platelet Estimate (ADEQUATE) ADEQUATE Polychromasia 1+ Poikilocytosis 1+ Basophilic Stippling 1+ Ovalocytes 1+ PUBS MCHC (33.0 - 37.0 G/DL) Cancelled 33.5 Haptoglobin (43 - 212 mg/dL) 218 H Other Body Source Fld Total RBCs Counted (%) 100 08 06/29 2200 1405 Hematology CBC w Diff Cancelled NO MAN DIFF REQ WBC (4.8 - 10.8 /CUMM) Cancelled 11.5 H RBC (4.20 - 5.40 /CUMM) Cancelled 2.07 L Hgb (12.0 - 16.0 G/DL) Cancelled 6.3 *L Hct (37 - 47 %) Cancelled 18.6 *L MCV (81.0 - 99.0 FL) Cancelled 90.1 MCH (27.0 - 31.0 PG) Cancelled 30.4 RDW (11.5 - 14.5 %) Cancelled 16.4 H Plt Count (130 - 400 /CUMM) Cancelled 267 MPV (7.4 - 10.4 FL) Cancelled 6.7 L Gran % (42.2 - 75.2 %) 82.3 H Lymphocytes % (20.5 - 51.1 %) 10.5 L Monocytes % (1.7 - 9.3 %) 4.6 Eosinophils % (0 - 5 %) 2.1 Basophils % (0.0 - 2.0 %) 0.5 Absolute Granulocytes (1.4 - 6.5 /CUMM) 9.5 H Absolute Lymphocytes (1.2 - 3.4 /CUMM) 1.2 Absolute Monocytes (0.10 - 0.60 /CUMM) 0.5 Absolute Eosinophils (0.0 - 0.7 /CUMM) 0.2 Absolute Basophils (0.0 - 0.2 /CUMM) 0.1 PUBS MCHC (33.0 - 37.0 G/DL) Cancelled 33.7 Imaging/Other Studies: 06/23/17: EKG- NSR @ 83, RBBB, LAHB, multiple APC, LVH, PRWP (without change from prior EKG) Please see Pulsity for numerous imaging studies obtained from -06/29/17. 06/29/17: CT ABD & PELVIS W/O IV CONTRAST; CT CHEST WO IV CONTRAST- 1. *Limited noncontrast study. The [id number] is also limited. The lateral aspects of the patient's body are excluded from the field of view secondary to the large body habitus. In addition, there is significant artifact related to the patient's arms which are at their sides. 2. No definite evidence for an intrathoracic, abdominal or pelvic hematoma. *An active arterial bleed cannot be assessed on this noncontrast study. 3. Decrease in size of a right-sided hydropneumothorax compared to the prior chest CT. A chest tube in position. 06/29/17: XRY-PORTABLE CHEST XRAY- Persistent consolidation of right middle and right lower lobes and unchanged appearance of the loculated right pleural effusion with thoracostomy tube in place. 06/30/17: *EGD TO D3- Impression: 1. Superficial nonbleeding esophageal erosion at 35 cm, left intact. 2. 1+ nonerosive distal GERD with minimally irregular Z line at 40 cm, left intact. 3. Scant sliding hiatal hernia pouch, without any Freddie erosions. 4. Mildly inflamed gastric cardia, just below Z line on retroflexion, left intact. 5. Minimal prepyloric antral erythema, left intact. 07/01/17: XRY-PORTABLE CHEST XRAY- No pneumothorax. Right hemithorax unchanged with drainage catheter and likely partially loculated pleural effusion unchanged.
--- NOTE | 2017-07-02 07:59 | PN- Diabetes ---
Assessment/Plan Assessment: This 61-year-old woman with a known history of type 2 diabetes mellitus associated with morbid obesity and with severe complications including a left below the knee amputation diabetic neuropathy and chronic kidney diseases stage 4 presented to the emergency room with respiratory failure. The patient underwent right thoracotomy with drainage of an empyema. A great deal of loculation of fibrosis was found apparently according to the operative note. The patient underwent the panendoscopy yesterday and is scheduled for colonoscopy today. She has been on just clear liquids and has received GoLYTELY. The patient was on Levemir 15 units twice a day but her sugar was getting too low. Her sugar this morning is 90. Levemir has been discontinued. She is on D5 half-normal saline at 75 cc/h. Yesterday she did not receive a clear liquid diet. She states she was kept n.p.o. Plan: Suggest agree with stopping Levemir for now. While n.p.o. she should be on sliding scale NovoLog rather than sliding scale regular insulin every 4 hours beginning with a sugar above 150. Sliding scale NovoLog every 4 hours should be less than 150 give no insulin, 151-200 give 2 units NovoLog, 201-250 give 3 units NovoLog, 251-300 give 4 units NovoLog, 301-350 give 5 units NovoLog, 351- 400 give 6 units NovoLog. We need to keep glucose in the IV with D5 half-normal saline at 75 cc/h while she is n.p.o. After the procedure when the patient is eating again we can resume Levemir 12 units twice a day and change her to sliding scale NovoLog to before meals.
[2017-07-02 08:13] LABS: ABSOLUTE MONOCYTE COUNT 0.6 /CUMM (0.10-0.60); PLATELET COUNT 270 /CUMM (130-400)
[2017-07-02 08:21] LABS: PT 18.5 SEC (9.4-12.5); PTT 26 SEC (25-37)
--- NOTE | 2017-07-02 08:36 | PN- Pulmonary ---
Subjective HPI/Critical Care Issues: Patient feels improved with chest tube removed and no longer requiring Objective Current Medications: Current Medications Sig/Suleman Start time Last Medication Dose Route Stop Time Status Admin Acetaminophen 1,000 MG Q6P PRN 06/19 1130 AC 06/25 N/A 1 UNIT IV 1527 Albuterol Sulfate 3 ML BID 06/30 2200 AC 07/01 INH 1830 Ampicillin Sodium/ 3,000 MG Q8H 06/23 1600 AC 07/02 Sulbactam Sodium IV 0045 Sodium Chloride 100 ML Atorvastatin Calcium 40 MG 1700 06/15 1700 DC 07/01 PO 1615 Calcium Carbonate 500 MG DAILY 06/21 1000 AC 07/01 PO 1006 Dextrose/Water 1,000 ML Q13H 07/02 0000 AC 07/02 IV 0130 Dextrose/Water 1,000 ML Q13H 06/30 0815 LA 07/01 IV 0009 Docusate Sodium 100 MG BID 06/12 2359 AC 07/01 PO 2120 Hydromorphone HCl 1 MG ONCE ONE 07/01 1215 DC IV 07/01 1216 Hydromorphone HCl 2 MG Q4P PRN 06/27 1115 07/02 IV 0622 Hydromorphone HCl 1.2 MG Q4-6 PRN PRN 06/24 1100 DC 06/27 IV 0522 Insulin Aspart 0 TIDAC/HS 07/01 1200 DC 07/01 MN 07/01 2330 1636 Insulin Aspart 0 Q4 06/30 1000 LA 07/01 MN 0221 Insulin Detemir 15 UNITS BID 07/01 1000 LA 07/01 MN 07/01 2330 2300 Insulin Human Regular 0 Q4 07/01 2340 AC 07/02 SC 0629 Lidocaine 1 PAT DAILY@1700 06/20 1700 AC 07/01 EXT 1615 Magnesium Oxide 400 MG ONE ONE 07/01 1515 DC 07/01 PO 07/01 1516 1513 Magnesium Sulfate 1 GM Q2H 07/01 1500 DC Dextrose/Water 100 ML IV 07/01 1859 Melatonin 5 MG AT BEDTIME 06/21 2200 AC 07/01 PO 2120 Nitroglycerin 0.5 GM Q6P PRN 06/15 1830 AC TOP Oxycodone HCl 40 MG Q12 06/25 2200 AC 07/01 PO 2118 Pantoprazole Sodium 40 MG DAILY 06/30 1000 AC 07/01 IV 0814 Pregabalin 75 MG BID 06/13 2200 AC 07/01 PO 2118 Senna/Docusate Sodium 1 TAB BID 06/27 1145 AC 07/01 PO 2120 Sodium Chloride 2 SPRAY Q4P PRN 06/27 0015 AC 06/27 TREY 0209 Tiotropium [place] 1 PUF DAILY 06/14 1000 AC 07/01 INH 0814 Zinc Oxide 1 JEVON BID 06/30 1248 AC 07/01 TOP 2128 Vital Signs & I&O Last 24 Hrs of Vitals and I&O: Vital Signs Date Time Temp Pulse Resp B/P B/P Pulse O2 O2 Flow FiO2 Mean Ox Delivery Rate 07/02 0700 97.9 64 20 118/56 90 07/02 0000 Room Air 07/01 2347 98.0 78 22 136/70 92 Room Air 07/01 1830 92 Room Air 07/01 1600 98 Room Air 07/01 1558 98.4 64 16 120/50 98 Room Air 07/01 0943 94 Nasal 2.0L Cannula Intake & Output 07/02 1600 07/02 0800 07/02 0000 Intake Total 350 200 Output Total 400 500 Balance -50 -300 Intake, IV 300 Intake, Oral 50 200 Number 1 Bowel Movements Output, Urine 400 500 Room air oxygen saturation 9092% exam for chest continues to show decreased breath sounds at the right base cardiac exam shows a regular S1 and S2 without murmurs Impression/Plan Impression/Plan Impression/Plan: 61-year-old with right-sided empyema secondary to community-acquired pneumonia with associated sepsis. Patient has persistent loculated effusion and leukocytosis complicated by DVT now status post evacuation of empyema and hemothorax . Respiratory status continues to improve Recommendations: Pulmonary toilet and incentive spirometry. Start physical therapy. Patient will require follow-up CAT scan as outpatient
[2017-07-02 08:53] LABS: ABSOLUTE BASOPHIL COUNT 0.1 /CUMM (0.0-0.2); ABSOLUTE EOSINOPHIL COUNT 0.3 /CUMM (0.0-0.7); ABSOLUTE GRANULOCYTE CT 8.7 /CUMM (1.4-6.5); BASOPHIL % 0.5 % (0.0-2.0); EOSINOPHIL % 3.2 % (0-5); GRANULOCYTE % 81.1 % (42.2-75.2); MEAN CORPUSCULAR HGB 29.8 PG (27.0-31.0); MEAN CORPUSCULAR HGB CONC 32.8 G/DL (33.0-37.0); MEAN CORPUSCULAR VOLUME 90.9 FL (81.0-99.0); MEAN PLATELET VOLUME 6.7 FL (7.4-10.4); RBC DISTRIBUTION WIDTH 16.2 % (11.5-14.5); RED BLOOD CELL CT 2.49 /CUMM (4.20-5.40); WHITE BLOOD CELL COUNT 10.7 /CUMM (4.8-10.8)
[2017-07-02 09:00] LABS: HEMATOCRIT 22.7 % (37-47)
--- NOTE | 2017-07-02 11:49 | PN- Housestaff ---
Subjective Follow-up For: Guaiac positive stools Anemia Empyema status post chest tube placement Diabetes Ameya on CK D Subjective: Patient is to go for colonoscopy today to look for source of bleeding. She had upper endoscopy already which showed no obvious source. Review of Systems Constitutional: Reports: no symptoms. Objective Last 24 Hrs of Vital Signs/I&O Vital Signs Date Time Temp Pulse Resp B/P B/P Pulse O2 O2 Flow FiO2 Mean Ox Delivery Rate 07/02 1730 Nasal 3.0L Cannula 07/02 1654 98.0 68 20 120/70 90 07/02 0854 91 Room Air 07/02 0700 97.9 64 20 118/56 90 07/02 0000 Room Air 07/01 2347 98.0 78 22 136/70 92 Room Air Intake & Output 07/02 1600 07/02 0800 07/02 0000 Intake Total 580 350 200 Output Total 400 500 Balance 580 -50 -300 Intake, IV 550 300 Intake, Oral 30 50 200 Number 1 Bowel Movements Output, Urine 400 500 Patient 253 lb Weight Weight Chair scale Measurement Method Physical Exam General Appearance: Alert, Oriented X3, Cooperative, No Acute Distress Cardiovascular: Regular Rate, Normal S1, Normal S2, No Murmurs, 1 chest tube remaining Assessment/Plan Assessment: Assessment: 61-year-old woman, current smoker with a history of COPD, diabetes type 2 with diabetic neuropathy, left leg DVT status post IVC filter, chronic kidney disease , neuropathy and peripheral vascular disease, status post left BKA and amputations of the right first and third toes, last admitted to [facility] in September 2016 for cellulitis treated with cefazolin and discharged on Keflex, came for evaluation of chest pain of 4 days' duration associated with shortness of breath. Patient had drainage and Pleurx catheter drain placed on the for question of empyema. Fluid was found to be slightly blood tinged serous grossly. Fluid composition showed elevated WBCs, RBCs, pH 6.4, LDH of 3819. She is on Unasyn. She was found to have extremely elevated white blood cell count on admission of 44. Chest x-ray done after placement on 06/13 showed persistent moderate volume of her right pleural effusion. WBCs continue to be elevated. Patient had repositioning of pigtail catheter and VQ scan done under anesthesia which returned with low to intermediate probability of PE so she was continued on IV heparin. As per cardiothoracic surgery, the patient might be bleeding and suggests discontinuing heparin. However as per cardiology the patient requires anticoagulation for potential PE. Patient has had minimal drainage after repositioning of pigtail catheter. Plan #1 Acute hypoxic respiratory failure likely secondary to community-acquired pneumonia, COMPLICATED BY EMPYEMA: She was found to have an empyema which was drained with Pleurx catheter. Fluid was found to be exudative in nature. Catheter drainage was ?650 mL of serous sanguinous fluid from first pigtail catheter placement with minimal drainage after repositioning. Repeat CT of the chest was done under anesthesia today, postoperatively stable, clearly shows complex empyema, compressing most of the lung tissue on the right side. Patient sent for lung decortication today. -Chest x-ray today: Persistent consolidation of right middle and right lower lobes and unchanged appearance of the loculated right pleural effusion with thoracostomy tube in place. Unasyn 3 g every 12 to every 8 hours #Pleuritic chest pain with positive troponins: Likely due to demand ischemia, with AMEYA also contributing to it. -According to Dr. Lucas, if patient has precordial chest pain then can begin NTG paste 1/2 inch Q 6 hours. -According to Dr. Lucas, cardiology, myocardial ischemia cannot be 100% excluded and patient should later have outpatient risk stratification with a stress test. Statin was discontinued owing to transaminitis. #Urinary tract infection: Dirty urine, cultures positive for staph aureus -She has received an adequate course of Vancomycin for a lower urinary tract infection. Currently on Unasyn. Will continue. #Anemia -Patient had hemoglobin 7.0/20.6 this am. Will be transfused another unit of PRBC. Total 10 units. to go for colonoscopy today to determine source of bleeding #Insulin-dependent diabetes mellitus, Uncontrolled * Blood sugars are at 205,182,182,187 * SS adjusted as per endo recommendations. * Patient was on a clear liquid diet and will have a colonoscopy done on 2017. The scope was not able to be done on 07/01/2017. Will make the patient NPO from Midnight. * SS have been adjusted to Novolin. # Elevated proBNP at 2590. No previous echo on record. * Echo showed good ejection fraction and no obvious wall motion regional abnormalities * Daily I/O and weight checks. #Acute kidney injury on chronic kidney disease * Patient has had persistent bicarb deficiency during this stay, has never had this problem before. * Monitory BEP. Cr 2.6 * Avoid nephrotoxins # Hyperkalemia * Potassium has normalized. K: 4.0 -Pain Control with Dilaudid and IV Tylenol -Diabetic diet -DVT prophylaxis Alps on right leg -Full code Problem List: 1. Occult blood positive stool 2. Acute blood loss anemia 3. Empyema 4. Pleural effusion 5. Cellulitis 6. Pneumonia Pain Ratin Pain Location: chest where incision site exists Pain Goal: Pain 4 or less Pain Plan: as needed Tomorrow's Labs & Rationales: cbc bep
--- NOTE | 2017-07-02 11:58 | PN- Att Addend ---
Attending Addendum Attending Brief Note Patient sitting in the chair, sleepy today, being prepped for colonoscopy hopefully later on today. Appreciate trumpet player input regarding her sugars and insulin Vital signs are stable she is afebrile. Her white count is down to 10,700. No other changes. Chest tube still in place. Depending on the results of the colonoscopy with treat accordingly. Continue antibiotics as per infectious diseases will check with cardiothoracic see how much longer the chest tube has to be in place Intake & Output 07/02 1600 07/02 0400 07/01 1600 07/01 0400 06/30 1600 06/30 0400 Intake Total 899 688 1649 717 778 1721 Output Total 803 466 7990 1530 1330 Balance -50 -300 378 800 -605 700 Intake, Blood 350 690 Product Intake, IV 300 848 575 260 Intake, Oral 50 200 1640 800 0 1080 Number 1 3 3 5 6 Bowel Movements Output, Chest 110 30 30 Tube Drainage Output, Stool 600 Output, Urine 396 318 9424 1500 1300 Patient 253 lb 253 lb Weight Weight Chair scale Bed scale Measurement Method Current Medications Sig/Suleman Start time Last Medication Dose Route Stop Time Status Admin Acetaminophen 1,000 MG Q6P PRN 06/19 1130 AC 06/25 N/A 1 UNIT IV 1527 Albuterol Sulfate 3 ML BID 06/30 2200 AC 07/02 INH 0843 Ampicillin Sodium/ 3,000 MG Q8H 06/23 1600 AC 07/02 Sulbactam Sodium IV 1033 Sodium Chloride 100 ML Atorvastatin Calcium 40 MG 1700 06/15 1700 DC 07/01 PO 1615 Calcium Carbonate 500 MG DAILY 06/21 1000 AC 07/01 PO 1006 Dextrose/Water 1,000 ML Q13H 07/02 0000 AC 07/02 IV 0130 Docusate Sodium 100 MG BID 06/12 2359 AC 07/01 PO 2120 Hydromorphone HCl 1 MG ONCE ONE 07/01 1215 DC IV 07/01 1216 Hydromorphone HCl 2 MG Q4P PRN 06/27 1115 AC 07/02 IV 1055 Insulin Aspart 0 Q4 07/02 0900 AC SC Insulin Aspart 0 TIDAC/HS 07/01 1200 DC 07/01 SC 07/01 2330 1636 Insulin Detemir 15 UNITS BID 07/01 1000 DC 07/01 SC 07/01 2330 2300 Insulin Human Regular 0 Q4 07/02 1000 CAN SC Insulin Human Regular 0 Q4 07/01 2340 DC 07/02 SC 0629 Lidocaine 1 PAT DAILY@1700 06/20 1700 AC 07/01 EXT 1615 Magnesium Oxide 400 MG ONE ONE 07/01 1515 DC 07/01 PO 07/01 1516 1513 Magnesium Sulfate 1 GM Q2H 07/01 1500 DC Dextrose/Water 100 ML IV 07/01 1859 Melatonin 5 MG AT BEDTIME 06/21 2200 AC 07/01 PO 2120 Nitroglycerin 0.5 GM Q6P PRN 06/15 1830 AC TOP Oxycodone HCl 40 MG Q12 06/25 2200 AC 07/01 PO 2118 Pantoprazole Sodium 40 MG DAILY 06/30 1000 AC 07/02 IV 1032 Pregabalin 75 MG BID 06/13 2200 AC 07/01 PO 2118 Senna/Docusate Sodium 1 TAB BID 06/27 1145 AC 07/01 PO 2120 Sodium Chloride 2 SPRAY Q4P PRN 06/27 0015 AC 06/27 TREY 0209 Tiotropium [place] 1 PUF DAILY 06/14 1000 AC 07/02 INH 1033 Zinc Oxide 1 JEVON BID 06/30 1248 AC 07/02 TOP 1034 Laboratory Tests 07/02/17 0742: Anion Gap 12, Estimated GFR 19 L, Glucose 83, Calcium 8.3 L, Phosphorus 5.0 H , Magnesium 1.7, Total Bilirubin 0.5, AST 70 H, ALT 89 H, Albumin 2.4 L, PT 18.5 H, INR 1.77 H, APTT 26, CBC w Diff NO MAN DIFF REQ, RBC 2.49 L, MCV 90.9 , MCH 29.8, RDW 16.2 H, MPV 6.7 L, Gran % 81.1 H, Lymphocytes % 9.3 L, Monocytes % 5.9, Eosinophils % 3.2, Basophils % 0.5, Absolute Granulocytes 8.7 H, Absolute Lymphocytes 1.0 L, Absolute Monocytes 0.6, Absolute Eosinophils 0.3 , Absolute Basophils 0.1, PUBS MCHC 32.8 L 07/01/17 2255: CBC w Diff NO MAN DIFF REQ, RBC 2.43 L, MCV 89.7, MCH 29.4, RDW 16.0 H, MPV 6.1 L, Gran % 80.0 H, Lymphocytes % 10.9 L, Monocytes % 5.1, Eosinophils % 3.1, Basophils % 0.9, Absolute Granulocytes 8.6 H, Absolute Lymphocytes 1.2, Absolute Monocytes 0.5, Absolute Eosinophils 0.3, Absolute Basophils 0.1, [facility] MCHC 32.8 L 07/01/17 1600: CBC w Diff Cancelled, WBC Cancelled, RBC Cancelled, Hgb Cancelled, Hct Cancelled , MCV Cancelled, MCH Cancelled, RDW Cancelled, Plt Count Cancelled, MPV Cancelled, [facility] M[facility] Cancelled 07/01/17 0407: Anion Gap 13, Estimated GFR 19 L, Glucose 122 H, Calcium 8.4, Phosphorus 5.4 H, Magnesium 1.6, Total Bilirubin 0.5, AST 123 H, ALT 82 H, Albumin 2.4 L, CBC w Diff NO MAN DIFF REQ, RBC 2.32 L, MCV 88.9, MCH 30.2, RDW 16.3 H, MPV 6.9 L, Gran % 77.3 H, Lymphocytes % 13.6 L, Monocytes % 5.1, Eosinophils % 3.2, Basophils % 0.8, Absolute Granulocytes 8.8 H, Absolute Lymphocytes 1.6, Absolute Monocytes 0.6, Absolute Eosinophils 0.4, Absolute Basophils 0.1, [facility] 07/01/17 0025: CBC w Diff MAN DIFF ORDERED, RBC 2.41 L, MCV 88.1, MCH 29.7, RDW 16.6 H, MPV 6.5 L, Gran % 82.6 H, Lymphocytes % 9.4 L, Monocytes % 5.0, Eosinophils % 2.5 , Basophils % 0.5, Absolute Granulocytes 9.9 H, Segmented Neutrophils 85 H, Band Neutrophils 1, Absolute Lymphocytes 1.1 L, Lymphocytes 7 L, Monocytes 3, Absolute Monocytes 0.6, Absolute Eosinophils 0.3, Basophils 2, Absolute Basophils 0.1, Metamyelocytes 1, Myelocytes 1 H, Platelet Estimate ADEQUATE, Hypochromic-Microcytic 2+, Poikilocytosis 1+, Anisocytosis 1+, Ovalocytes 1+, [facility] MCHC 33.7 06/30/17 1715: CBC w Diff NO MAN DIFF REQ, RBC 2.55 L, MCV 88.3, MCH 29.7, RDW 16.7 H, MPV 6.7 L, Gran % 82.6 H, Lymphocytes % 9.8 L, Monocytes % 4.8, Eosinophils % 2.4 , Basophils % 0.4, Absolute Granulocytes 10.0 H, Absolute Lymphocytes 1.2, Absolute Monocytes 0.6, Absolute Eosinophils 0.3, Absolute Basophils 0, [facility] MCH[facility] 33.7 06/30/17 1054: CBC w Diff NO MAN DIFF REQ, RBC 2.64 L, MCV 87.7, MCH 29.7, RDW 16.3 H, MPV 6.9 L, Gran % 84.6 H, Lymphocytes % 9.6 L, Monocytes % 3.7, Eosinophils % 1.8 , Basophils % 0.3, Absolute Granulocytes 11.0 H, Absolute Lymphocytes 1.2, Absolute Monocytes 0.5, Absolute Eosinophils 0.2, Absolute Basophils 0, [facility] MCHC 33.9 06/30/17 0524: Anion Gap 11, Estimated GFR 17 L, Glucose 154 H, Calcium 8.1 L, Phosphorus 5.2 H, Magnesium 1.6, Total Bilirubin 0.6, AST 33, ALT 43, Albumin 2.1 L, PT 14.8 H, INR 1.41 H, Fibrinogen Activity 356, D-Dimer High Sensitivty 3236 H, Haptoglobin 218 H 06/30/17 0000: CBC w Diff Cancelled, WBC Cancelled, RBC Cancelled, Hgb Cancelled, Hct Cancelled , MCV Cancelled, MCH Cancelled, RDW Cancelled, Plt Count Cancelled, MPV Cancelled, PUBS MCHC Cancelled 06/29/17 2316: CBC w Diff MAN DIFF ORDERED, RBC 2.31 L, MCV 88.8, MCH 29.7, RDW 16.0 H, MPV 6.7 L, Gran % 85.6 H, Lymphocytes % 7.6 L, Monocytes % 4.4, Eosinophils % 2.1 , Basophils % 0.3, Absolute Granulocytes 11.7 H, Segmented Neutrophils 90 H, Absolute Lymphocytes 1.0 L, Lymphocytes 5 L, Monocytes 2, Absolute Monocytes 0.6, Eosinophils 3, Absolute Eosinophils 0.3, Absolute Basophils 0, Platelet Estimate ADEQUATE, Polychromasia 1+, Poikilocytosis 1+, Basophilic Stippling 1+, Ovalocytes 1+, PUBS MCHC 33.5, Fld Total RBCs Counted 100 06/29/17 2200: CBC w Diff Cancelled, WBC Cancelled, RBC Cancelled, Hgb Cancelled, Hct Cancelled , MCV Cancelled, MCH Cancelled, RDW Cancelled, Plt Count Cancelled, MPV Cancelled, PUBS MCHC Cancelled 06/29/17 1405: CBC w Diff NO MAN DIFF REQ, RBC 2.07 L, MCV 90.1, MCH 30.4, RDW 16.4 H, MPV 6.7 L, Gran % 82.3 H, Lymphocytes % 10.5 L, Monocytes % 4.6, Eosinophils % 2.1, Basophils % 0.5, Absolute Granulocytes 9.5 H, Absolute Lymphocytes 1.2, Absolute Monocytes 0.5, Absolute Eosinophils 0.2, Absolute Basophils 0.1, PUBS MCHC 33.7
--- NOTE | 2017-07-02 14:37 | Proc Note Colonoscopy ---
Colonoscopy Procedure Medical History: unchanged Mental Status: alert/oriented Heart/Lung Eval Prior to Sedation: within normal limits Candidate for Sedation? Yes Date of Last Colonoscopy: Never Procedure Date: 07/02/17 Procedure Type: colonoscopy Agronomy Teacher: JAMMIE RODAS,MARY Stauffer ASA Classification: IV Indications: INDX: (*Please refer to extensive GI consult of 06/29/17). 61 y/o female with numerous comorbidities, multifactorial anemia, & brown OB+ stool. 06/30/17: EGD TO D3- Impression: 1. Superficial nonbleeding esophageal erosion at 35 cm, left intact. 2. 1+ nonerosive distal GERD with minimally irregular Z line at 40 cm, left intact. 3. Scant sliding hiatal hernia pouch, without any Freddie erosions. 4. Mildly inflamed gastric cardia, just below Z line on retroflexion, left intact. 5. Minimal prepyloric antral erythema, left intact. {*No active UGI bleeding seen]. Instrument (Colonoscope): single channel Meds Received: MAC Patient's Tolerance: good Complications: none Extent Reached: terminal ileum Prep: fair Procedure: Baseline colonoscopy to the terminal ileum was performed with the Olympus high- definition video colonoscope, after obtaining informed consent from the patient, with the furnace keeper and pulse oximeter, after 1 gallon of GoLYTELY, with the assistance of Dr. Bahena, of [facility]. The prep was fair. Some residual, thick tenacious brown liquid stool was encountered, predominantly in the proximal colon. The vast majority of this was washed and suctioned clear. Theoretically, a small polyp could have been obscured, but certainly, nothing was seen to account for the extensive amount of blood transfusions. The patient was in the left lateral decubitus position throughout the procedure. Direct views of the rectum failed to reveal any external hemorrhoids, fissures, or perianal disease. Digital rectal exam was unremarkable, without any masses. Sphincter tone was normal. Retroflexion in the rectum failed to reveal any internal hemorrhoids, gross proctitis, rectal ulcers, or rectal lesions. The colonic mucosa was carefully inspected, both upon insertion and upon withdrawal of the colonoscope. Withdrawal time was certainly adequate. There were moderate left-sided diverticula. There were no strictures. I did not appreciate any proximal diverticula. The cecum, base of the appendix, and ileocecal valve were all identified. The last 10 cm of the terminal ileum were entered, and appeared normal. Confirmatory photographs were obtained. The colonic mucosa appeared intact and within normal limits to the terminal ileum, without any large polyps, lesions, gross colitis, ileitis, or angiodysplasias. Having stated that, a tiny inconsequential polyp could have been obscured by the prep & this was discussed with the patient. No active lower GI bleeding was seen. The patient tolerated the procedure well. Impression: 1. Moderate left-sided diverticula. 2. Normal colonic mucosa to the terminal ileum. Fair prep. No bleeding site seen to account for the patient's extensive blood transfusions. Recommendations: Continue empiric Protonix 40 mg daily. Check CBC daily for now. Keep Hgb >7 ( no documented ASHD). Supplemental O2. Check peripheral smear. Consider checking FDP (normal fibrinogen). Follow up transaminases (improving off Atorvastatin, possibly secondary to Unasyn > passive congestion). Minimize Tylenol use. No NSAIDs. *Feed patient (2g Na+, DM, heart healthy, renal, high fiber diet). Fibercon 2 tabs daily. Follow-up with numerous physicians for potential non-GI sources of bleeding. DVT prophylaxis with mechanical ALPS. Will defer to ID regarding duration of antibiotics for H. flu bacteremia. In view of fair prep on this baseline colonoscopy, keeping in mind the lack of any family history of colon CA, advise follow-up surveillance colonoscopy in 5 years (i.e.- 06/2022) after a 1 gallon prep, as opposed to 10 years. Consider IV Fe & EPO. Consider hematology input.*Documenting photographs were placed inside the patient's chart. *The above findings and recommendations were discussed with the patient, the patient's son-in-law, Anson Ramos ([phone]; as per patient request), Dr. Ramirez, & Dr. Hays postoperatively. *The patient has my office number. She was advised to contact my office after discharge to arrange for an outpatient PillCam, although I feel that the majority of her anemia is not predominantly GI in nature. *Further inpatient GI follow-up as needed. Followup Colonscopy Screen In: in 5 years with a 1 gallon prep CC: Dhruv RODAS,Carlos Grayson; James RODAS,Rodrigue Brandon; Louie RODAS,Thien Denise; Alexander RODAS,Steven Ashby; Amaury White MD,Steven Brandon; Saúl RODAS,Brandi Lucas MD PHD,Carlos Castillo
[2017-07-02 16:54] VITALS: BP 120/70
--- NOTE | 2017-07-02 21:44 | Event Note ---
Event Note Event Note: Nurse paged stating patients family wanted to discuss patient's current hospital stay Spoke to patient's son in law and patient concerning patient's multiple blood transfusions and current mangagement regarding the workup thus far for the anemia. Patient's [id number] is a nurse and would like to be updated on the patient's status. Patient would like both her son-in-law and [id number] to be updated. Patient's boyzqz-yp-cay is Maricruz Vo. Contact: . Also patient noted that her room becomes hot and cold making it difficult to breath at times. This was relayed to the nurse who will see if another room is available for the patient.
[2017-07-02 23:51] VITALS: BP 138/70
[2017-07-03 05:54] VITALS: BP 120/80
[2017-07-03 08:18] LABS: ABSOLUTE BASOPHIL COUNT 0 /CUMM (0.0-0.2); ABSOLUTE EOSINOPHIL COUNT 0.4 /CUMM (0.0-0.7); ABSOLUTE GRANULOCYTE CT 8.1 /CUMM (1.4-6.5); ABSOLUTE LYMPH COUNT 1.4 /CUMM (1.2-3.4); ABSOLUTE MONOCYTE COUNT 0.4 /CUMM (0.10-0.60); RED BLOOD CELL CT 2.34 /CUMM (4.20-5.40); WHITE BLOOD CELL COUNT 10.3 /CUMM (4.8-10.8)
--- NOTE | 2017-07-03 08:25 | PN- Diabetes ---
Assessment/Plan Assessment: This 61-year-old woman with a known history of type 2 diabetes mellitus associated with morbid obesity and with severe complications including a left below the knee amputation diabetic neuropathy and chronic kidney diseases stage 4 presented to the emergency room with respiratory failure. The patient underwent right thoracotomy with drainage of an empyema. A great deal of loculation of fibrosis was found apparently according to the operative note. The patient was n.p.o. yesterday and underwent a colonoscopy. She began to be allowed to have her diet last night. The patient is presently on Levemir 12 units twice a day and sliding scale NovoLog. She resumed her Levemir last evening. Overall she feels much improved and wants to go home. Plan: Suggest continue the present insulin. Further adjustments may be necessary now that the patient is eating again. Subjective Subjective: Feels okay but had trouble sleeping last night Review of Systems Constitutional: Denies: chills, fever. Cardiovascular: Reports: chest pain (from previous chest tube). Respiratory: Reports: short of breath. Gastrointestinal: Denies: nausea, vomiting. Objective Last 24 Hrs of Vital Signs/I&O Vital Signs Date Time Temp Pulse Resp B/P B/P Pulse O2 O2 Flow FiO2 Mean Ox Delivery Rate 07/03 0554 98.0 71 20 120/80 95 07/03 0000 92 Nasal 3.0L Cannula 07/02 2350 98.3 71 20 138/70 92 07/02 1903 91 Room Air 07/02 1730 Nasal 3.0L Cannula 07/02 1654 98.0 68 20 120/70 90 07/02 0854 91 Room Air Intake & Output 07/03 1600 07/03 0800 07/03 0000 Intake Total 500 300 Output Total 350 800 Balance 150 -500 Intake, IV 100 Intake, Oral 400 300 Number 0 1 Bowel Movements Output, Urine 350 800 Vital Signs Date Time Temp Pulse Resp B/P B/P Pulse O2 O2 Flow FiO2 Mean Ox Delivery Rate 07/03 0554 98.0 71 20 120/80 95 07/03 0000 92 Nasal 3.0L Cannula 07/02 2351 98.3 71 20 138/70 92 07/02 1903 91 Room Air 07/02 1730 Nasal 3.0L Cannula 07/02 1654 98.0 68 20 120/70 90 07/02 0854 91 Room Air Intake & Output 07/03 1600 07/03 0800 07/03 0000 Intake Total 500 300 Output Total 350 800 Balance 150 -500 Intake, IV 100 Intake, Oral 400 300 Number 0 1 Bowel Movements Output, Urine 350 800 Physical Exam General Appearance: alert, awake, comfortable Neck: normal inspection Cardiovascular: regular rate/rhythm Abdomen: normal bowel sounds Extremities: left BKA Current Medications: Current Medications Sig/Suleman Start time Last Medication Dose Route Stop Time Status Admin Acetaminophen 1,000 MG Q6P PRN 06/19 1130 AC 07/03 N/A 1 UNIT IV 0218 Albuterol Sulfate 3 ML BID 06/30 2200 AC 07/02 INH 1855 Ampicillin Sodium/ 3,000 MG Q8H 06/23 1600 AC 07/02 Sulbactam Sodium IV 2331 Sodium Chloride 100 ML Calcium Carbonate 500 MG DAILY 06/21 1000 AC 07/01 PO 1006 Chlorhexidine 1 GM .STK-MED ONE 07/02 1546 DC Gluconate TOP 07/02 1547 Dextrose/Water 1,000 ML Q13H 07/02 0000 DC 07/02 IV 0130 Docusate Sodium 100 MG BID 06/12 2359 AC 07/01 PO 2120 Hydromorphone HCl 2 MG Q4P PRN 06/27 1115 AC 07/02 IV 2338 Insulin Aspart 0 TIDAC/HS 07/02 2100 AC 07/02 SC 2154 Insulin Aspart 0 TIDAC 07/02 1700 DC SC Insulin Aspart 0 Q4 07/02 0900 DC SC Insulin Detemir 12 UNITS BID 07/02 2200 AC 07/02 SC 2154 Insulin Human Regular 3 UNITS .STK-MED ONE 07/02 1223 DC IV 07/02 1224 Insulin Human Regular 0 Q4 07/02 1000 CAN SC Insulin Human Regular 0 Q4 07/01 2340 DC 07/02 SC 0629 Lidocaine 1 PAT DAILY@1700 06/20 1700 AC 07/02 EXT 1700 Melatonin 5 MG AT BEDTIME 06/21 2200 AC 07/02 PO 2156 Nitroglycerin 0.5 GM Q6P PRN 06/15 1830 AC TOP Oxycodone HCl 40 MG Q12 06/25 2200 DC 07/01 PO 2118 Pantoprazole Sodium 40 MG DAILY 06/30 1000 AC 07/02 IV 1032 Polycarbophil 1,250 MG DAILY 07/03 1000 AC PO Polycarbophil 1,250 MG DAILY 07/02 1655 AC 07/02 PO 1809 Pregabalin 75 MG BID 06/13 2200 DC 07/02 PO 2156 Senna/Docusate Sodium 1 TAB BID 06/27 1145 AC 07/01 PO 2120 Sodium Chloride 2 SPRAY Q4P PRN 06/27 0015 AC 06/27 TREY 0209 Tiotropium [place] 1 PUF DAILY 06/14 1000 AC 07/02 INH 1033 Zinc Oxide 1 JEVON BID 06/30 1248 07/02 TOP 2157 Findings Pertinent Lab/Drew Results: Laboratory Tests 07/03 07/02 0655 1700 Chemistry Sodium (137 - 145 mmol/L) 141 Potassium (3.5 - 5.1 mmol/L) 3.6 Chloride (98 - 107 mmol/L) 105 Carbon Dioxide (22 - 30 mmol/L) 21 L Anion Gap (5 - 16) 15 BUN (7 - 17 mg/dL) 43 H Creatinine (0.5 - 1.0 mg/dL) 2.6 H Estimated GFR (>60 ml/min) 19 L BUN/Creatinine Ratio (7 - 25 %) 16.5 Coagulation D-Dimer High Sensitivty (0 - 243 ng/ml) 3792 H Hematology CBC w Diff Pending WBC Pending RBC Pending Hgb Pending Hct Pending MCV Pending MCH Pending RDW Pending Plt Count Pending MPV Pending PUBS MCHC Pending
[2017-07-03 08:29] LABS: BASOPHIL % 0.5 % (0.0-2.0); EOSINOPHIL % 3.5 % (0-5); GRANULOCYTE % 78.5 % (42.2-75.2); HEMATOCRIT 21.5 % (37-47); MEAN CORPUSCULAR HGB 30.5 PG (27.0-31.0); MEAN CORPUSCULAR HGB CONC 33.3 G/DL (33.0-37.0); MEAN CORPUSCULAR VOLUME 91.7 FL (81.0-99.0); MEAN PLATELET VOLUME 6.7 FL (7.4-10.4); PLATELET COUNT 251 /CUMM (130-400); RBC DISTRIBUTION WIDTH 17.2 % (11.5-14.5)
--- NOTE | 2017-07-03 11:30 | PN- Pulmonary ---
Subjective HPI/Critical Care Issues: Patient's feels well and anxious to go home. Objective Current Medications: Current Medications Sig/Suleman Start time Last Medication Dose Route Stop Time Status Admin Acetaminophen 1,000 MG Q6P PRN 06/19 1130 AC 07/03 N/A 1 UNIT IV 0218 Albuterol Sulfate 3 ML BID 06/30 2200 AC 07/03 INH 1118 Ampicillin Sodium/ 3,000 MG Q8H 06/23 1600 AC 07/03 Sulbactam Sodium IV 0906 Sodium Chloride 100 ML Calcium Carbonate 500 MG DAILY 06/21 1000 AC 07/03 PO 0924 Chlorhexidine 1 GM .STK-MED ONE 07/02 1546 DC Gluconate TOP 07/02 1547 Dextrose/Water 1,000 ML Q13H 07/02 0000 DC 07/02 IV 0130 Docusate Sodium 100 MG BID 06/12 2359 AC 07/01 PO 2120 Hydromorphone HCl 2 MG Q4P PRN 06/27 1115 AC 07/03 IV 0904 Insulin Aspart 0 TIDAC/HS 07/02 2100 07/03 SC 0907 Insulin Aspart 0 TIDAC 07/02 1700 DC SC Insulin Aspart 0 Q4 07/02 0900 DC SC Insulin Detemir 12 UNITS BID 07/02 2200 AC 07/03 SC 0925 Insulin Human Regular 3 UNITS .STK-MED ONE 07/02 1223 DC IV 07/02 1224 Lidocaine 1 PAT DAILY@1700 06/20 1700 AC 07/02 EXT 1700 Melatonin 5 MG AT BEDTIME 06/21 2200 AC 07/02 PO 2156 Nitroglycerin 0.5 GM Q6P PRN 06/15 1830 TOP Oxycodone HCl 40 MG Q12 06/25 2200 DC 07/01 PO 2118 Pantoprazole Sodium 40 MG DAILY 06/30 1000 AC 07/03 IV 0924 Polycarbophil 1,250 MG DAILY 07/03 1000 AC 07/03 PO 0924 Polycarbophil 1,250 MG DAILY 07/02 1655 AC 07/02 PO 1809 Pregabalin 75 MG BID 06/13 2200 DC 07/02 PO 2156 Senna/Docusate Sodium 1 TAB BID 06/27 1145 AC 07/01 PO 2120 Sodium Chloride 2 SPRAY Q4P PRN 06/27 0015 06/27 TREY 0209 Tiotropium [place] 1 PUF DAILY 06/14 1000 AC 07/03 INH 0924 Zinc Oxide 1 JEVON BID 06/30 1248 AC 07/03 TOP 0925 Vital Signs & I&O Last 24 Hrs of Vitals and I&O: Vital Signs Date Time Temp Pulse Resp B/P B/P Pulse O2 O2 Flow FiO2 Mean Ox Delivery Rate 07/03 1119 95 Nasal 1.0L Cannula 07/03 0554 98.0 71 20 120/80 95 07/03 0000 92 Nasal 3.0L Cannula 07/02 2351 98.3 71 20 138/70 92 07/02 1903 91 Room Air 07/02 1730 Nasal 3.0L Cannula 07/02 1654 98.0 68 20 120/70 90 Intake & Output 07/03 1600 07/03 0800 07/03 0000 Intake Total 500 300 Output Total 350 800 Balance 150 -500 Intake, IV 100 Intake, Oral 400 300 Number 0 1 Bowel Movements Output, Urine 350 800 Oxygen saturation on 1 L 95% exam for chest continues to show diminished breath sounds over the right posterior chest cardiac exam shows normal S1 and S2 without murmurs Impression/Plan Impression/Plan Impression/Plan: 61-year-old with right-sided empyema secondary to community-acquired pneumonia with associated sepsis. Patient has persistent loculated effusion and leukocytosis complicated by DVT now status post evacuation of empyema and hemothorax . Respiratory status continues to improve with decreased oxygen requirements. White count continues to improve. Recommendations: Pulmonary toilet and incentive spirometry. Start physical therapy. Patient will require follow-up CAT scan as outpatient assess room air oximetry
--- NOTE | 2017-07-03 11:37 | PN- Infect Dx ---
Subjective Subjective: Afebrile. She feels well with no new complaints. Objective Last 24 Hrs of Vital Signs/I&O Vital Signs Date Time Temp Pulse Resp B/P B/P Pulse O2 O2 Flow FiO2 Mean Ox Delivery Rate 07/03 1119 95 Nasal 1.0L Cannula 07/03 0554 98.0 71 20 120/80 95 07/03 0000 92 Nasal 3.0L Cannula 07/02 2351 98.3 71 20 138/70 92 07/02 1903 91 Room Air 07/02 1730 Nasal 3.0L Cannula 07/02 1654 98.0 68 20 120/70 90 Intake & Output 07/03 1600 07/03 0800 07/03 0000 Intake Total 500 300 Output Total 350 800 Balance 150 -500 Intake, IV 100 Intake, Oral 400 300 Number 0 1 Bowel Movements Output, Urine 350 800 Physical Exam Other Physical Findings: She appears well in no acute distress Lungs decreased breath sound at the right base Heart regular rhythm with no murmur Extremities chronic venous stasis changes edema of the right lower extremity Results Last 24 Hours of Lab Results: Laboratory Tests 07/03 07/02 0655 1700 Chemistry Sodium (137 - 145 mmol/L) 141 Potassium (3.5 - 5.1 mmol/L) 3.6 Chloride (98 - 107 mmol/L) 105 Carbon Dioxide (22 - 30 mmol/L) 21 L Anion Gap (5 - 16) 15 BUN (7 - 17 mg/dL) 43 H Creatinine (0.5 - 1.0 mg/dL) 2.6 H Estimated GFR (>60 ml/min) 19 L BUN/Creatinine Ratio (7 - 25 %) 16.5 Coagulation D-Dimer High Sensitivty (0 - 243 ng/ml) 3792 H Hematology CBC w Diff NO MAN DIFF REQ WBC (4.8 - 10.8 /CUMM) 10.3 RBC (4.20 - 5.40 /CUMM) 2.34 L Hgb (12.0 - 16.0 G/DL) 7.1 *L Hct (37 - 47 %) 21.5 L MCV (81.0 - 99.0 FL) 91.7 MCH (27.0 - 31.0 PG) 30.5 RDW (11.5 - 14.5 %) 17.2 H Plt Count (130 - 400 /CUMM) 251 MPV (7.4 - 10.4 FL) 6.7 L Gran % (42.2 - 75.2 %) 78.5 H Lymphocytes % (20.5 - 51.1 %) 13.6 L Monocytes % (1.7 - 9.3 %) 3.9 Eosinophils % (0 - 5 %) 3.5 Basophils % (0.0 - 2.0 %) 0.5 Absolute Granulocytes (1.4 - 6.5 /CUMM) 8.1 H Absolute Lymphocytes (1.2 - 3.4 /CUMM) 1.4 Absolute Monocytes (0.10 - 0.60 /CUMM) 0.4 Absolute Eosinophils (0.0 - 0.7 /CUMM) 0.4 Absolute Basophils (0.0 - 0.2 /CUMM) 0 PUBS MCHC (33.0 - 37.0 G/DL) 33.3 Last 24 Hours of Drew Results: No new cultures Assessment/Plan Impression: Doing well, with temperatures and white blood cell count remaining normal, on Unasyn now 10 days status post right thoracotomy and decortication of the right lower lobe for drainage of an empyema secondary to Haemophilus influenzae,, which was isolated from her blood cultures, with both of her chest tubes now removed. Her anemia, now stable, remains unexplained with no obvious source on either upper endoscopy or colonoscopy. Suggestion: 1. Discontinue Unasyn 2. Begin Augmentin 500 mg po every 12 hours for 4 more days
--- NOTE | 2017-07-03 11:51 | PN- Nephrology ---
Assessment/Plan Assessment: 1. Acute kidney injury 2. Chronic kidney disease. Likely diabetic nephropathy. Her renal function is returned close to her baseline. 3. Diabetes mellitus 4. Peripheral vascular disease. Status post left BKA 5. Neuropathy 6. Anemia. Status post EGD as well as colonoscopy. Her ferritin is greater than 200, therefore, she ought not to need IV iron. Suggestion: 1. At this point, favor beginning an MEAGAN specifically Epogen at 20,000 units every other week 2. This requires prior authorization, I have asked my office to undertaking this. 3. They will call the patient with the times that she needs to get to the cancer Center. Subjective Subjective: Patient feels much better today. Objective Vital Signs and I&Os Vital Signs Date Time Temp Pulse Resp B/P B/P Pulse O2 O2 Flow FiO2 Mean Ox Delivery Rate 07/03 1119 95 Nasal 1.0L Cannula 07/03 0554 98.0 71 20 120/80 95 07/03 0000 92 Nasal 3.0L Cannula 07/02 2351 98.3 71 20 138/70 92 07/02 1903 91 Room Air 07/02 1730 Nasal 3.0L Cannula 07/02 1654 98.0 68 20 120/70 90 Intake & Output 07/03 1600 07/03 0400 07/02 1600 07/02 0400 07/01 1600 07/01 0400 Intake Total 500 300 592 767 5790 800 Output Total 350 800 735 853 2399 Balance 150 -500 530 -300 378 800 Intake, IV 100 850 848 Intake, Oral 400 300 80 200 1640 800 Number 0 1 1 3 3 Bowel Movements Output, Chest 110 Tube Drainage Output, Stool 600 Output, Urine 350 [phone] Patient 253 lb Weight Weight Chair scale Measurement Method Physical Exam: General Appearance: well developed/nourished, alert, awake, anxious, no distress , obese Head: atraumatic, normal appearance Eyes: Bilateral: PERRL, EOMI, pale conjunctivae. Neck: normal inspection, supple, full range of motion Respiratory: Fairly clear today Cardiovascular: regular rate/rhythm Gastrointestinal: normal bowel sounds, soft, non-tender, no organomegaly Back: normal inspection Extremities: no edema, status post left BKA Neurologic/Psych: no gross motor/sensory deficits, actually sitting up in a regular chair. She tells me she did the steps today. Cranial Nerves: normal hearing, normal speech Skin: no rash Current Medications: Current Medications Sig/Suleman Start time Last Medication Dose Route Stop Time Status Admin Acetaminophen 1,000 MG Q6P PRN 06/19 1130 AC 07/03 N/A 1 UNIT IV 0218 Albuterol Sulfate 3 ML BID 06/30 2200 AC 07/03 INH 1118 Ampicillin Sodium/ 3,000 MG Q8H 06/23 1600 AC 07/03 Sulbactam Sodium IV 0906 Sodium Chloride 100 ML Calcium Carbonate 500 MG DAILY 06/21 1000 AC 07/03 PO 0924 Chlorhexidine 1 GM .STK-MED ONE 07/02 1546 DC Gluconate TOP 07/02 1547 Dextrose/Water 1,000 ML Q13H 07/02 0000 DC 07/02 IV 0130 Docusate Sodium 100 MG BID 06/12 2359 AC 07/01 PO 2120 Hydromorphone HCl 2 MG Q4P PRN 06/27 1115 AC 07/03 IV 0904 Insulin Aspart 0 TIDAC/HS 07/02 2100 AC 07/03 SC 0907 Insulin Aspart 0 TIDAC 07/02 1700 DC SC Insulin Aspart 0 Q4 07/02 0900 DC SC Insulin Detemir 12 UNITS BID 07/02 2200 AC 07/03 SC 0925 Insulin Human Regular 3 UNITS .STK-MED ONE 07/02 1223 DC IV 07/02 1224 Lidocaine 1 PAT DAILY@1700 06/20 1700 AC 07/02 EXT 1700 Melatonin 5 MG AT BEDTIME 06/21 2200 AC 07/02 PO 2156 Nitroglycerin 0.5 GM Q6P PRN 06/15 1830 TOP Oxycodone HCl 40 MG Q12 06/25 2200 DC 07/01 PO 2118 Pantoprazole Sodium 40 MG DAILY 06/30 1000 AC 07/03 IV 0924 Polycarbophil 1,250 MG DAILY 07/03 1000 AC 07/03 PO 0924 Polycarbophil 1,250 MG DAILY 07/02 1655 AC 07/02 PO 1809 Pregabalin 75 MG BID 06/13 2200 DC 07/02 PO 2156 Senna/Docusate Sodium 1 TAB BID 06/27 1145 AC 07/01 PO 2120 Sodium Chloride 2 SPRAY Q4P PRN 06/27 0015 AC 06/27 TREY 0209 Tiotropium [place] 1 PUF DAILY 12/24 1000 AC 07/03 INH 0924 Zinc Oxide 1 JEVON BID 06/30 1248 07/03 TOP 0925 Results Pertinent Lab Results: Laboratory Tests 07/03 07/02 0655 1700 Chemistry Sodium (137 - 145 mmol/L) 141 Potassium (3.5 - 5.1 mmol/L) 3.6 Chloride (98 - 107 mmol/L) 105 Carbon Dioxide (22 - 30 mmol/L) 21 L Anion Gap (5 - 16) 15 BUN (7 - 17 mg/dL) 43 H Creatinine (0.5 - 1.0 mg/dL) 2.6 H Estimated GFR (>60 ml/min) 19 L BUN/Creatinine Ratio (7 - 25 %) 16.5 Coagulation D-Dimer High Sensitivty (0 - 243 ng/ml) 3792 H Hematology CBC w Diff NO MAN DIFF REQ WBC (4.8 - 10.8 /CUMM) 10.3 RBC (4.20 - 5.40 /CUMM) 2.34 L Hgb (12.0 - 16.0 G/DL) 7.1 *L Hct (37 - 47 %) 21.5 L MCV (81.0 - 99.0 FL) 91.7 MCH (27.0 - 31.0 PG) 30.5 RDW (11.5 - 14.5 %) 17.2 H Plt Count (130 - 400 /CUMM) 251 MPV (7.4 - 10.4 FL) 6.7 L Gran % (42.2 - 75.2 %) 78.5 H Lymphocytes % (20.5 - 51.1 %) 13.6 L Monocytes % (1.7 - 9.3 %) 3.9 Eosinophils % (0 - 5 %) 3.5 Basophils % (0.0 - 2.0 %) 0.5 Absolute Granulocytes (1.4 - 6.5 /CUMM) 8.1 H Absolute Lymphocytes (1.2 - 3.4 /CUMM) 1.4 Absolute Monocytes (0.10 - 0.60 /CUMM) 0.4 Absolute Eosinophils (0.0 - 0.7 /CUMM) 0.4 Absolute Basophils (0.0 - 0.2 /CUMM) 0 PUBS MCHC (33.0 - 37.0 G/DL) 33.3 07/02 07/01 0742 3245 Chemistry Sodium (137 - 145 mmol/L) 144 Potassium (3.5 - 5.1 mmol/L) 3.5 Chloride (98 - 107 mmol/L) 108 H Carbon Dioxide (22 - 30 mmol/L) 24 Anion Gap (5 - 16) 12 BUN (7 - 17 mg/dL) 54 H Creatinine (0.5 - 1.0 mg/dL) 2.6 H Estimated GFR (>60 ml/min) 19 L Glucose (65 - 99 mg/dL) 83 Calcium (8.4 - 10.2 mg/dL) 8.3 L Phosphorus (2.5 - 4.5 mg/dL) 5.0 H Magnesium (1.6 - 2.3 mg/dL) 1.7 Iron (37 - 170 ug/dL) 29 L TIBC (265 - 497 ug/dL) 293 Ferritin (11.1 - 264 ng/mL) 437.0 H Total Bilirubin (0.2 - 1.3 mg/dL) 0.5 AST (14 - 36 U/L) 70 H ALT (9 - 52 U/L) 89 H Albumin (3.5 - 5.0 g/dL) 2.4 L Coagulation PT (9.4 - 12.5 SEC) 18.5 H INR (0.90 - 1.19) 1.77 H APTT (25 - 37 SEC) 26 Hematology CBC w Diff MAN DIFF ORDERED NO MAN DIFF REQ WBC (4.8 - 10.8 /CUMM) 10.7 10.8 RBC (4.20 - 5.40 /CUMM) 2.49 L 2.43 L Hgb (12.0 - 16.0 G/DL) 7.4 *L 7.1 *L Hct (37 - 47 %) 22.7 L 21.8 L MCV (81.0 - 99.0 FL) 90.9 89.7 MCH (27.0 - 31.0 PG) 29.8 29.4 RDW (11.5 - 14.5 %) 16.2 H 16.0 H Plt Count (130 - 400 /CUMM) 270 262 MPV (7.4 - 10.4 FL) 6.7 L 6.1 L Gran % (42.2 - 75.2 %) 81.1 H 80.0 H Lymphocytes % (20.5 - 51.1 %) 9.3 L 10.9 L Monocytes % (1.7 - 9.3 %) 5.9 5.1 Eosinophils % (0 - 5 %) 3.2 3.1 Basophils % (0.0 - 2.0 %) 0.5 0.9 Absolute Granulocytes (1.4 - 6.5 /CUMM) 8.7 H 8.6 H Segmented Neutrophils (42.2 - 75.2 %) 87 H Absolute Lymphocytes (1.2 - 3.4 /CUMM) 1.0 L 1.2 Lymphocytes (20.5 - 51.1 %) 10 L Absolute Monocytes (0.10 - 0.60 /CUMM) 0.6 0.5 Eosinophils (0 - 5.0 %) 2 Absolute Eosinophils (0.0 - 0.7 /CUMM) 0.3 0.3 Basophils (0.0 - 2.0 %) 1 Absolute Basophils (0.0 - 0.2 /CUMM) 0.1 0.1 Platelet Estimate (ADEQUATE) ADEQUATE Polychromasia 1+ Hypochromic-Microcytic 1+ Poikilocytosis 1+ Basophilic Stippling RARE Anisocytosis 1+ PUBS MCHC (33.0 - 37.0 G/DL) 32.8 L 32.8 L 07/01 07/01 1600 0407 Chemistry Sodium (137 - 145 mmol/L) 140 Potassium (3.5 - 5.1 mmol/L) 4.0 Chloride (98 - 107 mmol/L) 107 Carbon Dioxide (22 - 30 mmol/L) 21 L Anion Gap (5 - 16) 13 BUN (7 - 17 mg/dL) 73 H Creatinine (0.5 - 1.0 mg/dL) 2.6 H Estimated GFR (>60 ml/min) 19 L Glucose (65 - 99 mg/dL) 122 H Calcium (8.4 - 10.2 mg/dL) 8.4 Phosphorus (2.5 - 4.5 mg/dL) 5.4 H Magnesium (1.6 - 2.3 mg/dL) 1.6 Total Bilirubin (0.2 - 1.3 mg/dL) 0.5 AST (14 - 36 U/L) 123 H ALT (9 - 52 U/L) 82 H Albumin (3.5 - 5.0 g/dL) 2.4 L Hematology CBC w Diff Cancelled NO MAN DIFF REQ WBC (4.8 - 10.8 /CUMM) Cancelled 11.4 H RBC (4.20 - 5.40 /CUMM) Cancelled 2.32 L Hgb (12.0 - 16.0 G/DL) Cancelled 7.0 *L Hct (37 - 47 %) Cancelled 20.6 L MCV (81.0 - 99.0 FL) Cancelled 88.9 MCH (27.0 - 31.0 PG) Cancelled 30.2 RDW (11.5 - 14.5 %) Cancelled 16.3 H Plt Count (130 - 400 /CUMM) Cancelled 251 MPV (7.4 - 10.4 FL) Cancelled 6.9 L Gran % (42.2 - 75.2 %) 77.3 H Lymphocytes % (20.5 - 51.1 %) 13.6 L Monocytes % (1.7 - 9.3 %) 5.1 Eosinophils % (0 - 5 %) 3.2 Basophils % (0.0 - 2.0 %) 0.8 Absolute Granulocytes (1.4 - 6.5 /CUMM) 8.8 H Absolute Lymphocytes (1.2 - 3.4 /CUMM) 1.6 Absolute Monocytes (0.10 - 0.60 /CUMM) 0.6 Absolute Eosinophils (0.0 - 0.7 /CUMM) 0.4 Absolute Basophils (0.0 - 0.2 /CUMM) 0.1 PUBS MCHC (33.0 - 37.0 G/DL) Cancelled 34.0 07/01 06/30 0025 1715 Hematology CBC w Diff MAN DIFF ORDERED NO MAN DIFF REQ WBC (4.8 - 10.8 /CUMM) 11.9 H 12.1 H RBC (4.20 - 5.40 /CUMM) 2.41 L 2.55 L Hgb (12.0 - 16.0 G/DL) 7.2 *L 7.6 L Hct (37 - 47 %) 21.2 L 22.5 L MCV (81.0 - 99.0 FL) 88.1 88.3 MCH (27.0 - 31.0 PG) 29.7 29.7 RDW (11.5 - 14.5 %) 16.6 H 16.7 H Plt Count (130 - 400 /CUMM) 255 246 MPV (7.4 - 10.4 FL) 6.5 L 6.7 L Gran % (42.2 - 75.2 %) 82.6 H 82.6 H Lymphocytes % (20.5 - 51.1 %) 9.4 L 9.8 L Monocytes % (1.7 - 9.3 %) 5.0 4.8 Eosinophils % (0 - 5 %) 2.5 2.4 Basophils % (0.0 - 2.0 %) 0.5 0.4 Absolute Granulocytes (1.4 - 6.5 /CUMM) 9.9 H 10.0 H Segmented Neutrophils (42.2 - 75.2 %) 85 H Band Neutrophils (0.0 - 5.0 %) 1 Absolute Lymphocytes (1.2 - 3.4 /CUMM) 1.1 L 1.2 Lymphocytes (20.5 - 51.1 %) 7 L Monocytes (1.7 - 9.3 %) 3 Absolute Monocytes (0.10 - 0.60 /CUMM) 0.6 0.6 Absolute Eosinophils (0.0 - 0.7 /CUMM) 0.3 0.3 Basophils (0.0 - 2.0 %) 2 Absolute Basophils (0.0 - 0.2 /CUMM) 0.1 0 Metamyelocytes (0.0 - 1.0 %) 1 Myelocytes (0 - 0 %) 1 H Platelet Estimate (ADEQUATE) ADEQUATE Hypochromic-Microcytic 2+ Poikilocytosis 1+ Anisocytosis 1+ Ovalocytes 1+ PUBS MCHC (33.0 - 37.0 G/DL) 33.7 33.7
--- NOTE | 2017-07-03 13:10 | PN- Att Addend ---
Attending Addendum Attending Brief Note Appreciate looking and feeling better sitting in the chair chest tube is out. Had an upper endoscopy oh active bleeding there H&H is still low. Vital signs are stable no fever white count is 10,300 case was discussed with GI in the house staff will request nephrology and hematology input probably start epogen injections and iron injections. Once that is established can start disposition plans and eventually as an outpatient have a PillCam test to evaluate the portions of the GI tract that can be seen with the upper and lower endoscopies Intake & Output 07/03 1600 07/03 0400 07/02 1600 07/02 0400 07/01 1600 07/01 0400 Intake Total 500 300 726 813 4057 800 Output Total 750 800 176 800 9559 Balance -250 -500 530 -300 378 800 Intake, IV 100 850 848 Intake, Oral 400 300 80 200 1640 800 Number 0 1 1 3 3 Bowel Movements Output, Chest 110 Tube Drainage Output, Stool 600 Output, Urine 750 800 605 428 9915 Patient 253 lb 253 lb Weight Weight Chair scale Chair scale Measurement Method Current Medications Sig/Suleman Start time Last Medication Dose Route Stop Time Status Admin Acetaminophen 1,000 MG Q6P PRN 06/19 1130 AC 07/03 N/A 1 UNIT IV 0218 Albuterol Sulfate 3 ML BID 06/30 2200 AC 07/03 INH 1118 Ampicillin Sodium/ 3,000 MG Q8H 06/23 1600 AC 07/03 Sulbactam Sodium IV 0906 Sodium Chloride 100 ML Calcium Carbonate 500 MG DAILY 06/21 1000 AC 07/03 PO 0924 Chlorhexidine 1 GM .STK-MED ONE 07/02 1546 DC Gluconate TOP 07/02 1547 Dextrose/Water 1,000 ML Q13H 07/02 0000 DC 07/02 IV 0130 Docusate Sodium 100 MG BID 06/12 2359 AC 07/01 PO 2120 Epoetin Benny 20,000 UNITS ONCE ONE 07/03 1215 DC SC 07/03 1216 Hydromorphone HCl 2 MG Q4P PRN 06/27 1115 AC 07/03 IV 1305 Insulin Aspart 0 TIDAC/HS 07/02 2100 AC 07/03 SC 1217 Insulin Aspart 0 TIDAC 07/02 1700 DC SC Insulin Aspart 0 Q4 07/02 0900 DC SC Insulin Detemir 12 UNITS BID 07/02 2200 AC 07/03 SC 0925 Lidocaine 1 PAT DAILY@1700 06/20 1700 AC 07/02 EXT 1700 Melatonin 5 MG AT BEDTIME 06/21 220 AC 07/02 PO 2156 Nitroglycerin 0.5 GM Q6P PRN 06/15 183 [facility] Oxycodone HCl 40 MG Q12 06/25 2200 DC 07/01 PO 2118 Pantoprazole Sodium 40 MG DAILY 06/30 1000 AC 07/03 IV 0924 Polycarbophil 1,250 MG DAILY 07/03 1000 AC 07/03 PO 0924 Polycarbophil 1,250 MG DAILY 07/02 1655 AC 07/02 PO 1809 Pregabalin 75 MG BID 06/13 2200 DC 07/02 PO 2156 Senna/Docusate Sodium 1 TAB BID 06/27 1145 AC 07/01 PO 2120 Sodium Chloride 2 SPRAY Q4P PRN 06/27 0015 06/27 TREY 0209 Tiotropium [place] 1 PUF DAILY 06/14 1000 AC 07/03 INH 0924 Zinc Oxide 1 JEVON BID 06/30 1248 07/03 TOP 0925 Laboratory Tests 07/03/17 0655: Anion Gap 15, Estimated GFR 19 L, BUN/Creatinine Ratio 16.5, CBC w Diff NO MAN DIFF REQ, RBC 2.34 L, MCV 91.7, MCH 30.5, RDW 17.2 H, MPV 6.7 L, Gran % 78.5 H, Lymphocytes % 13.6 L, Monocytes % 3.9, Eosinophils % 3.5, Basophils % 0.5, Absolute Granulocytes 8.1 H, Absolute Lymphocytes 1.4, Absolute Monocytes 0.4, Absolute Eosinophils 0.4, Absolute Basophils 0, PUBS MCHC 33.3 07/02/17 1700: D-Dimer High Sensitivty 3792 H 07/02/17 0742: Anion Gap 12, Estimated GFR 19 L, Glucose 83, Calcium 8.3 L, Phosphorus 5.0 H , Magnesium 1.7, Iron 29 L, TIBC 293, Ferritin 437.0 H, Total Bilirubin 0.5, AST 70 H, ALT 89 H, Albumin 2.4 L, PT 18.5 H, INR 1.77 H, APTT 26, CBC w Diff MAN DIFF ORDERED, RBC 2.49 L, MCV 90.9, MCH 29.8, RDW 16.2 H, MPV 6.7 L, Gran % 81.1 H, Lymphocytes % 9.3 L, Monocytes % 5.9, Eosinophils % 3.2, Basophils % 0.5, Absolute Granulocytes 8.7 H, Segmented Neutrophils 87 H, Absolute Lymphocytes 1.0 L, Lymphocytes 10 L, Absolute Monocytes 0.6, Eosinophils 2, Absolute Eosinophils 0.3, Basophils 1, Absolute Basophils 0.1, Platelet Estimate ADEQUATE, Polychromasia 1+, Hypochromic-Microcytic 1+, Poikilocytosis 1+, Basophilic Stippling RARE, Anisocytosis 1+, PUBS MCHC 32.8 L 07/01/17 2255: CBC w Diff NO MAN DIFF REQ, RBC 2.43 L, MCV 89.7, MCH 29.4, RDW 16.0 H, MPV 6.1 L, Gran % 80.0 H, Lymphocytes % 10.9 L, Monocytes % 5.1, Eosinophils % 3.1, Basophils % 0.9, Absolute Granulocytes 8.6 H, Absolute Lymphocytes 1.2, Absolute Monocytes 0.5, Absolute Eosinophils 0.3, Absolute Basophils 0.1, PUBS MCHC 32.8 L 07/01/17 1600: CBC w Diff Cancelled, WBC Cancelled, RBC Cancelled, Hgb Cancelled, Hct Cancelled , MCV Cancelled, MCH Cancelled, RDW Cancelled, Plt Count Cancelled, MPV Cancelled, PUBS MCHC Cancelled 07/01/17 0407: Anion Gap 13, Estimated GFR 19 L, Glucose 122 H, Calcium 8.4, Phosphorus 5.4 H, Magnesium 1.6, Total Bilirubin 0.5, AST 123 H, ALT 82 H, Albumin 2.4 L, CBC w Diff NO MAN DIFF REQ, RBC 2.32 L, MCV 88.9, MCH 30.2, RDW 16.3 H, MPV 6.9 L, Gran % 77.3 H, Lymphocytes % 13.6 L, Monocytes % 5.1, Eosinophils % 3.2, Basophils % 0.8, Absolute Granulocytes 8.8 H, Absolute Lymphocytes 1.6, Absolute Monocytes 0.6, Absolute Eosinophils 0.4, Absolute Basophils 0.1, PUBS MCHC 34.0 07/01/17 0025: CBC w Diff MAN DIFF ORDERED, RBC 2.41 L, MCV 88.1, MCH 29.7, RDW 16.6 H, MPV 6.5 L, Gran % 82.6 H, Lymphocytes % 9.4 L, Monocytes % 5.0, Eosinophils % 2.5 , Basophils % 0.5, Absolute Granulocytes 9.9 H, Segmented Neutrophils 85 H, Band Neutrophils 1, Absolute Lymphocytes 1.1 L, Lymphocytes 7 L, Monocytes 3, Absolute Monocytes 0.6, Absolute Eosinophils 0.3, Basophils 2, Absolute Basophils 0.1, Metamyelocytes 1, Myelocytes 1 H, Platelet Estimate ADEQUATE, Hypochromic-Microcytic 2+, Poikilocytosis 1+, Anisocytosis 1+, Ovalocytes 1+, PUBS MCHC 33.7 06/30/17 1715: CBC w Diff NO MAN DIFF REQ, RBC 2.55 L, MCV 88.3, MCH 29.7, RDW 16.7 H, MPV 6.7 L, Gran % 82.6 H, Lymphocytes % 9.8 L, Monocytes % 4.8, Eosinophils % 2.4 , Basophils % 0.4, Absolute Granulocytes 10.0 H, Absolute Lymphocytes 1.2, Absolute Monocytes 0.6, Absolute Eosinophils 0.3, Absolute Basophils 0, PUBS MCHC 33.7 Vital Signs Date Time Temp Pulse Resp B/P B/P Pulse O2 O2 Flow FiO2 Mean Ox Delivery Rate 07/03 1119 95 Nasal 1.0L Cannula 07/03 0800 Nasal 3.0L Cannula 07/03 0554 98.0 71 20 120/80 95 07/03 0000 92 Nasal 3.0L Cannula 07/02 2351 98.3 71 20 138/70 92 07/02 1903 91 Room Air 07/02 1730 Nasal 3.0L Cannula 07/02 1654 98.0 68 20 120/70 90
[2017-07-03 14:16] VITALS: BP 152/62
--- NOTE | 2017-07-03 14:32 | PN- Housestaff ---
Subjective Follow-up For: Guaiac positive stools Anemia Empyema status post chest tube placement Diabetes Ameya on CK D Review of Systems Constitutional: Reports: no symptoms (some chest pain at surgery sit). Objective Last 24 Hrs of Vital Signs/I&O Vital Signs Date Time Temp Pulse Resp B/P B/P Pulse O2 O2 Flow FiO2 Mean Ox Delivery Rate 07/03 2044 94 Nasal 1.0L Cannula 07/03 1600 Nasal 1.0L Cannula 07/03 1416 98.3 73 20 152/62 94 Room Air 07/03 1119 95 Nasal 1.0L Cannula 07/03 0800 Nasal 3.0L Cannula 07/03 0554 98.0 71 20 120/80 95 07/03 0000 92 Nasal 3.0L Cannula 07/02 2351 98.3 71 20 138/70 92 Intake & Output 07/03 1600 07/03 0800 07/03 0000 Intake Total 950 500 300 Output Total 850 350 800 Balance 100 150 -500 Intake, IV 150 100 Intake, Oral 800 400 300 Number 0 1 Bowel Movements Output, Urine 850 350 800 Patient 253 lb Weight Weight Chair scale Measurement Method Physical Exam General Appearance: Alert, Oriented X3, Cooperative, No Acute Distress Assessment/Plan Assessment: Assessment: 61-year-old woman, current smoker with a history of COPD, diabetes type 2 with diabetic neuropathy, left leg DVT status post IVC filter, chronic kidney disease , neuropathy and peripheral vascular disease, 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 Patient had drainage and Pleurx catheter drain placed on the for question of empyema. Fluid was found to be slightly blood tinged serous grossly. Fluid composition showed elevated WBCs, RBCs, pH 6.4, LDH of 3819. She is on Unasyn. She was found to have extremely elevated white blood cell count on admission of 44. Chest x-ray done after placement on 06/13 showed persistent moderate volume of her right pleural effusion. WBCs continue to be elevated. Patient had repositioning of pigtail catheter and VQ scan done under anesthesia which returned with low to intermediate probability of PE so she was continued on IV heparin. As per cardiothoracic surgery, the patient might be bleeding and suggests discontinuing heparin. However as per cardiology the patient requires anticoagulation for potential PE. Patient has had minimal drainage after repositioning of pigtail catheter. Plan #1 Acute hypoxic respiratory failure likely secondary to community-acquired pneumonia, COMPLICATED BY EMPYEMA: She was found to have an empyema which was drained with Pleurx catheter. Fluid was found to be exudative in nature. Catheter drainage was ?650 mL of serous sanguinous fluid from first pigtail catheter placement with minimal drainage after repositioning. Repeat CT of the chest was done under anesthesia today, postoperatively stable, clearly shows complex empyema, compressing most of the lung tissue on the right side. Patient sent for lung decortication today. -Chest x-ray today: Persistent consolidation of right middle and right lower lobes and unchanged appearance of the loculated right pleural effusion with thoracostomy tube in place. Unasyn 3 g every 12 to every 8 hours #Pleuritic chest pain with positive troponins: Likely due to demand ischemia, with AMEYA also contributing to it. -According to Dr. Lucas, if patient has precordial chest pain then can begin NTG paste 1/2 inch Q 6 hours. -According to Dr. Lucas, cardiology, myocardial ischemia cannot be 100% excluded and patient should later have outpatient risk stratification with a stress test. Statin was discontinued owing to transaminitis. #Urinary tract infection: Dirty urine, cultures positive for staph aureus -She has received an adequate course of Vancomycin for a lower urinary tract infection. Currently on Unasyn. Will continue. #Anemia -Hb 7.1 today -Colonoscopy found no source of active bleed to explain symptoms. -nephrology points to the patient's kidney issues and so we started epo 20,000 units subcutaneously. #Insulin-dependent diabetes mellitus, Uncontrolled * SS adjusted as per endo recommendations. * Patient is placed back on diet and novolog sliding scale # Elevated proBNP at 2590. No previous echo on record. * Echo showed good ejection fraction and no obvious wall motion regional abnormalities * Daily I/O and weight checks. #Acute kidney injury on chronic kidney disease * Patient has had persistent bicarb deficiency during this stay, has never had this problem before. * Monitory BEP. Cr 2.6 * Avoid nephrotoxins # Hyperkalemia * Potassium has normalized. K: 4.0 -Pain Control with Dilaudid and IV Tylenol -Diabetic diet -DVT prophylaxis Alps on right leg -Full code Problem List: 1. Elevated transaminase level 2. Occult blood positive stool 3. Empyema 4. Pleural effusion 5. Pneumonia Pain Ratin Pain Location: left chest surgical sites Pain Goal: Pain 4 or less Pain Plan: dilaudid Tomorrow's Labs & Rationales: cbc bep
[2017-07-03 23:36] VITALS: BP 142/68
[2017-07-04 06:37] VITALS: BP 160/50
[2017-07-04 09:08] LABS: ABSOLUTE BASOPHIL COUNT 0 /CUMM (0.0-0.2); ABSOLUTE EOSINOPHIL COUNT 0.3 /CUMM (0.0-0.7); ABSOLUTE GRANULOCYTE CT 8.4 /CUMM (1.4-6.5); ABSOLUTE LYMPH COUNT 1.4 /CUMM (1.2-3.4); ABSOLUTE MONOCYTE COUNT 0.4 /CUMM (0.10-0.60); BASOPHIL % 0.5 % (0.0-2.0); GRANULOCYTE % 79.1 % (42.2-75.2); HEMATOCRIT 21.8 % (37-47); MEAN CORPUSCULAR HGB 30.6 PG (27.0-31.0); MEAN CORPUSCULAR HGB CONC 33.4 G/DL (33.0-37.0); MEAN CORPUSCULAR VOLUME 91.8 FL (81.0-99.0); MEAN PLATELET VOLUME 6.8 FL (7.4-10.4); PLATELET COUNT 260 /CUMM (130-400); RBC DISTRIBUTION WIDTH 17.3 % (11.5-14.5); RED BLOOD CELL CT 2.38 /CUMM (4.20-5.40); WHITE BLOOD CELL COUNT 10.6 /CUMM (4.8-10.8)
--- NOTE | 2017-07-04 11:43 | PN- Housestaff ---
See Addendum Subjective Follow-up For: Guaiac positive stools Anemia Empyema status post chest tube placement Diabetes Zoila on CK D Subjective: patient states she has some more pain today at the incision site. she is anxious. she has no sob, chest pain. Review of Systems Constitutional: Reports: no symptoms, see HPI, weakness. EENTM: Reports: no symptoms. Respiratory: Reports: no symptoms. Objective Last 24 Hrs of Vital Signs/I&O Vital Signs Date Time Temp Pulse Resp B/P B/P Pulse O2 O2 Flow FiO2 Mean Ox Delivery Rate 07/04 1910 98 Nasal 2.0L Cannula 07/04 1600 Nasal 1.0L Cannula 07/04 1543 97.2 65 20 120/70 94 Nasal 1.0L Cannula 07/04 1024 97 Nasal 1.0L Cannula 07/04 0800 Nasal 1.0L Cannula 07/04 0637 97.8 70 20 160/50 94 Nasal 2.0L Cannula 07/04 0000 Nasal 2.0L Cannula 07/03 2336 98.2 75 22 142/68 97 Intake & Output 07/04 1600 07/04 0800 07/04 0000 Intake Total 200 240 480 Output Total 650 600 650 Balance -450 -360 -170 Intake, Oral 200 240 480 Number 0 0 Bowel Movements Output, Urine 650 600 650 Physical Exam General Appearance: Alert, Oriented X3, Cooperative, No Acute Distress Skin Temp/Moisture Exam: Warm/Dry HEENT: Atraumatic Cardiovascular: Regular Rate, Normal S1, Normal S2, No Murmurs Lungs: Normal Air Movement Abdomen: Normal Bowel Sounds, Soft Extremities: Normal Pulses, left prothesis Vascular: Pulses Symmetrical Current Medications: Current Medications Sig/Suleman Start time Last Medication Dose Route Stop Time Status Admin Acetaminophen 1,000 MG Q6P PRN 06/19 1130 AC 07/03 N/A 1 UNIT IV 0218 Albuterol Sulfate 3 ML BID 06/30 220 AC 07/04 INH 1020 Alprazolam 0.25 MG BID PRN 07/04 220 AC 07/04 PO 07/11 2158 210 Amoxicillin/ 500 MG Q12 07/03 1400 AC 07/04 Clavulanate Potassium PO 07/06 2201 2114 Calcium Carbonate 500 MG DAILY 06/21 1000 AC 07/04 PO 0829 Docusate Sodium 100 MG BID 06/12 2359 AC 07/01 PO 2120 Hydromorphone HCl 2 MG ONCE PRN 07/03 2330 AC 07/03 IV 2324 Hydromorphone HCl 2 MG Q6P PRN 07/03 1415 07/04 PO 0305 Insulin Aspart 0 TIDAC/HS 07/02 2100 AC 07/04 SC 211 Insulin Detemir 12 UNITS BID 07/02 2200 07/04 SC 211 Lidocaine 1 PAT DAILY@1700 06/20 1700 AC 07/04 EXT 1802 Melatonin 5 MG AT BEDTIME 06/21 2200 07/04 PO 211 Nitroglycerin 0.5 GM Q6P PRN 06/15 1830 TOP Oxycodone HCl 40 MG Q12 07/03 1412 AC 07/04 PO 211 Pantoprazole Sodium 40 MG DAILY 06/30 1000 07/04 IV 0829 Polycarbophil 1,250 MG DAILY 07/03 1000 AC 07/03 PO 0924 Senna/Docusate Sodium 1 TAB BID 06/27 1145 07/01 PO 2120 Sodium Chloride 2 SPRAY Q4P PRN 06/27 0015 06/27 TREY 0209 Tiotropium [place] 1 PUF DAILY 06/14 1000 07/04 INH 0829 Zinc Oxide 1 JEVON BID 06/30 1248 07/04 TOP 2120 Last 24 Hrs of Lab/Drew Results Last 24 Hrs of Labs/Mics: Laboratory Tests 07/04/17 0630: Anion Gap 13, Estimated GFR 19 L, BUN/Creatinine Ratio 14.2, CBC w Diff NO MAN DIFF REQ, RBC 2.38 L, MCV 91.8, MCH 30.6, RDW 17.3 H, MPV 6.8 L, Gran % 79.1 H, Lymphocytes % 13.4 L, Monocytes % 4.0, Eosinophils % 3.0, Basophils % 0.5, Absolute Granulocytes 8.4 H, Absolute Lymphocytes 1.4, Absolute Monocytes 0.4, Absolute Eosinophils 0.3, Absolute Basophils 0, PUBS MCHC 33.4 Assessment/Plan Assessment: Assessment: 61-year-old woman, current smoker with a history of COPD, diabetes type 2 with diabetic neuropathy, left leg DVT status post IVC filter, chronic kidney disease , neuropathy and peripheral vascular disease, status post left BKA and amputations of the right first and third toes, last admitted to [facility] in September 2016 for cellulitis treated with cefazolin and discharged on Keflex, came for evaluation of chest pain of 4 days' duration associated with shortness of breath. Patient had drainage and Pleurx catheter drain placed on the for question of empyema. Fluid was found to be slightly blood tinged serous grossly. Fluid composition showed elevated WBCs, RBCs, pH 6.4, LDH of 3819. She is on Unasyn. She was found to have extremely elevated white blood cell count on admission of 44. Chest x-ray done after placement on 06/13 showed persistent moderate volume of her right pleural effusion. WBCs continue to be elevated. Patient had repositioning of pigtail catheter and VQ scan done under anesthesia which returned with low to intermediate probability of PE so she was continued on IV heparin. As per cardiothoracic surgery, the patient might be bleeding and suggests discontinuing heparin. However as per cardiology the patient required anticoagulation for potential PE. Patient had pleurodesis and placement of VATS with removal of chest tubes. during her stay in ICU patient received 10 units of blood. she had guaic poisitive stools but negtaive upper and lower endoscopies for bleeding source. today hb is 7.3. Plan #1 Acute hypoxic respiratory failure likely secondary to community-acquired pneumonia, COMPLICATED BY EMPYEMA: She was found to have an empyema which was drained with Pleurx catheter. Fluid was found to be exudative in nature. Catheter drainage was 650 mL of serous sanguinous fluid from first pigtail catheter placement with minimal drainage after repositioning. patient had persistent fluid so had pleurodesis with placement of vats and removal to go effect. Unasyn 3 g every 12 to every 8 hours #Pleuritic chest pain with positive troponins: Likely due to demand ischemia, with ZOILA also contributing to it. -According to Dr. Lucas, if patient has precordial chest pain then can begin NTG paste 1/2 inch Q 6 hours. -According to Dr. Lucas, cardiology, myocardial ischemia cannot be 100% excluded and patient should later have outpatient risk stratification with a stress test. Statin was discontinued owing to transaminitis. #Urinary tract infection: Dirty urine, cultures positive for staph aureus -She has received an adequate course of Vancomycin for a lower urinary tract infection. Currently on Unasyn. Will continue. #Anemia -Patient had hemoglobin 7.3this am. Will be transfused another unit of PRBC. Total 10 units. colo and egd have shown no bleeding source. colo recommended protonix 40mg, peripheral smear, fdp iron studies showed high ferritin, patient doesnt need iron. nephrology suggsted sstarted epogen 20,oooU subcutaneously every other week. she will have to have it at the cancer center and nephrology will set this up. GI s #Insulin-dependent diabetes mellitus, Uncontrolled * insulin will need to be adjusted prior to discharge #anxiety psychiatry consult tomorrow for anxiety and pain medication question of addiction? # Elevated proBNP at 2590. No previous echo on record. * Echo showed good ejection fraction and no obvious wall motion regional abnormalities * Daily I/O and weight checks. #Acute kidney injury on chronic kidney disease * Monitory BEP. * Avoid nephrotoxins # Hyperkalemia * Potassium has normalized. K: 4.0 disposition patient refused rehab will go home with PT -Pain Control with Dilaudid and IV Tylenol -Diabetic diet -DVT prophylaxis Alps on right leg -Full code Problem List: 1. Occult blood positive stool 2. Empyema 3. Pleural effusion 4. Pneumonia 5. Acute blood loss anemia Pain Ratin Pain Location: chest incision site Pain Goal: Pain 4 or less Pain Plan: moprhine Tomorrow's Labs & Rationales: cbc bep
--- NOTE | 2017-07-04 12:02 | PN- Pulmonary ---
Subjective HPI/Critical Care Issues: Afebrile. She feels well with no new complaints. Objective Current Medications: Current Medications Sig/Suleman Start time Last Medication Dose Route Stop Time Status Admin Acetaminophen 1,000 MG Q6P PRN 06/19 1130 07/03 N/A 1 UNIT IV 0218 Albuterol Sulfate 3 ML BID 06/30 2200 07/04 INH 1020 Amoxicillin/ 500 MG Q12 07/03 1400 AC 07/04 Clavulanate Potassium PO 07/06 220 0832 Ampicillin Sodium/ 3,000 MG Q8H 06/23 1600 DC 07/03 Sulbactam Sodium IV 0906 Sodium Chloride 100 ML Calcium Carbonate 500 MG DAILY 06/21 1000 07/04 PO 0829 Docusate Sodium 100 MG BID 06/12 2359 07/01 PO 2120 Epoetin Benny 20,000 UNITS ONCE ONE 07/03 1215 DC 07/03 SC 07/03 1216 1418 Hydromorphone HCl 2 MG ONCE PRN 07/03 2330 07/03 IV 2324 Hydromorphone HCl 2 MG Q6P PRN 07/03 1415 07/04 PO 0305 Hydromorphone HCl 2 MG Q4P PRN 06/27 1115 PA 07/03 IV 1305 Insulin Aspart 0 TIDAC/HS 07/02 2100 07/04 SC 0800 Insulin Detemir 12 UNITS BID 07/02 2200 07/04 SC 0831 Lidocaine 1 PAT DAILY@1700 06/20 1700 07/03 EXT 1708 Melatonin 5 MG AT BEDTIME 06/21 2200 07/03 PO 2149 Nitroglycerin 0.5 GM Q6P PRN 06/15 1830 TOP Oxycodone HCl 40 MG .STK-MED ONE 07/03 1541 DC PO 07/03 1542 Oxycodone HCl 40 MG Q12 07/03 1412 07/04 PO 0830 Pantoprazole Sodium 40 MG DAILY 06/30 1000 07/04 IV 0829 Polycarbophil 1,250 MG DAILY 07/03 1000 07/03 PO 0924 Polycarbophil 1,250 MG DAILY 07/02 1655 DC 07/02 PO 1809 Senna/Docusate Sodium 1 TAB BID 06/27 1145 07/01 PO 2120 Sodium Chloride 2 SPRAY Q4P PRN 06/27 0015 06/27 TREY 0209 Tiotropium [place] 1 PUF DAILY 06/14 1000 AC 07/04 INH 0829 Zinc Oxide 1 JEVON BID 06/30 1248 07/04 TOP 0829 Vital Signs & I&O Last 24 Hrs of Vitals and I&O: Vital Signs Date Time Temp Pulse Resp B/P B/P Pulse O2 O2 Flow FiO2 Mean Ox Delivery Rate 07/04 1024 97 Nasal 1.0L Cannula 07/04 0800 Nasal 1.0L Cannula 07/04 0637 97.8 70 20 160/50 94 Nasal 2.0L Cannula 07/04 0000 Nasal 2.0L Cannula 07/03 2336 98.2 75 22 142/68 97 07/03 2044 94 Nasal 1.0L Cannula 07/03 1600 Nasal 1.0L Cannula 07/03 1416 98.3 73 20 152/62 94 Room Air Intake & Output 07/04 1600 07/04 0800 07/04 0000 Intake Total 240 480 Output Total 600 650 Balance -360 -170 Intake, Oral 240 480 Number 0 0 Bowel Movements Output, Urine 600 650 Impression/Plan Impression/Plan Impression/Plan: General Appearance Alert, Oriented X3, Cooperative, Elevated BMI Skin Pale HEENT Atraumatic, Mucous Membr. moist/pink Neck Supple, No CYNTHIA Cardiovascular S1, S2 present, 2/6 PRATIBHA LUSB Lungs b/l decreased breath sounds both bases Abdomen Normal Bowel Sounds, Soft, No Tenderness, Protuberant Extremities left leg non pitting edema with chronic skin changes, left stump examined, no skin breakdown 61-year-old woman with diabetes, peripheral vascular disease and neuropathy, status post left BKA over 8 years prior to admission, with a Charcot right foot, status post amputations of the first and third toes, chronic kidney disease, COPD, and a history of left lower extremity DVT, status post IVC filter, last hospitalized 8 months prior to admission with a cellulitis of the left BKA stump , admitted on June 12 with a several week history of a cough, occasionally productive of yellow sputum, undocumented fevers with chills, and more recent onset of right sided chest pain and increasing shortness of breath. ISSUES Empyema with complicated effusion with hemorragic fluid s/p decortication on abx Patient with now bilateral sup thrombophebitis with dvt aswell PRevious cellulitis DM with multiple complications including pvc, neuropathy with ckd Recurrent cellulitis better Severe anemia with slow gi bleed with no sig source so far REC PT OT eval Pt has 3 steps to get into the house and have pt eval if she can do this Needs home oxygen Cont insulin and DM mgt IF stable and if pt thinks that she can be managed at home then can be dcd
--- NOTE | 2017-07-04 13:29 | PN- Diabetes ---
Assessment/Plan Assessment: This 61-year-old woman with a known history of type 2 diabetes mellitus associated with morbid obesity and with severe complications including a left below the knee amputation diabetic neuropathy and chronic kidney diseases stage 4 presented to the emergency room with respiratory failure. The patient underwent right thoracotomy with drainage of an empyema. A great deal of loculation of fibrosis was found apparently according to the operative note. The patient is presently on Levemir 12 units twice a day and sliding scale NovoLog. Her FSGs were 108, 186, 183 and 178. However, she stated that she couldn't sleep at night in the hospital and would like to go home. In the meantime she still has the pain and she feels that she couldn't breathe sometimes. Plan: continue the current insulin regimen for now; monitor FSGs will follow however, patient has been very anxious, I will recommend psych consult. Subjective Subjective: patient is very anxious. Objective Last 24 Hrs of Vital Signs/I&O Vital Signs Date Time Temp Pulse Resp B/P B/P Pulse O2 O2 Flow FiO2 Mean Ox Delivery Rate 07/04 1024 97 Nasal 1.0L Cannula 07/04 0800 Nasal 1.0L Cannula 07/04 0637 97.8 70 20 160/50 94 Nasal 2.0L Cannula 07/04 0000 Nasal 2.0L Cannula 07/03 2336 98.2 75 22 142/68 97 07/03 2044 94 Nasal 1.0L Cannula 07/03 1600 Nasal 1.0L Cannula 07/03 1416 98.3 73 20 152/62 94 Room Air Intake & Output 07/04 1600 07/04 0800 07/04 0000 Intake Total 240 480 Output Total 600 650 Balance -360 -170 Intake, Oral 240 480 Number 0 0 Bowel Movements Output, Urine 600 650 Findings Pertinent Lab/Drew Results: Laboratory Tests 07/04 0630 Chemistry Sodium (137 - 145 mmol/L) 143 Potassium (3.5 - 5.1 mmol/L) 3.8 Chloride (98 - 107 mmol/L) 107 Carbon Dioxide (22 - 30 mmol/L) 22 Anion Gap (5 - 16) 13 BUN (7 - 17 mg/dL) 37 H Creatinine (0.5 - 1.0 mg/dL) 2.6 H Estimated GFR (>60 ml/min) 19 L BUN/Creatinine Ratio (7 - 25 %) 14.2 Hematology CBC w Diff NO MAN DIFF REQ WBC (4.8 - 10.8 /CUMM) 10.6 RBC (4.20 - 5.40 /CUMM) 2.38 L Hgb (12.0 - 16.0 G/DL) 7.3 *L Hct (37 - 47 %) 21.8 L MCV (81.0 - 99.0 FL) 91.8 MCH (27.0 - 31.0 PG) 30.6 RDW (11.5 - 14.5 %) 17.3 H Plt Count (130 - 400 /CUMM) 260 MPV (7.4 - 10.4 FL) 6.8 L Gran % (42.2 - 75.2 %) 79.1 H Lymphocytes % (20.5 - 51.1 %) 13.4 L Monocytes % (1.7 - 9.3 %) 4.0 Eosinophils % (0 - 5 %) 3.0 Basophils % (0.0 - 2.0 %) 0.5 Absolute Granulocytes (1.4 - 6.5 /CUMM) 8.4 H Absolute Lymphocytes (1.2 - 3.4 /CUMM) 1.4 Absolute Monocytes (0.10 - 0.60 /CUMM) 0.4 Absolute Eosinophils (0.0 - 0.7 /CUMM) 0.3 Absolute Basophils (0.0 - 0.2 /CUMM) 0 PUBS MCHC (33.0 - 37.0 G/DL) 33.4
[2017-07-04 15:43] VITALS: BP 120/70
[2017-07-04 23:19] VITALS: BP 122/60
--- NOTE | 2017-07-05 00:53 | Patient Discharge Instructions ---
Discharge Instructions General Discharge Information You were seen/treated for: empyema ckd anemia Special Instructions: 1. please follow up with your pcp in one week 2. please follow up with GI for pillcam 3. please follow up with CT surgery in one week () please f/u endocrinology in 1 week after d/c please f/u pulm in one week after d/c please f/u cardio in one week after d/c please f/u nephro in one week after d/c Diet Continue normal diet: Yes Activity Full Activity/No Limits: Yes Acute Coronary Syndrome Inclusion Criteria At DC or during hospital stay patient has or had the following: ACS DIAGNOSIS No Discharge Core Measures Meds if any: Prescribed or Continued at Discharge DANN/ARB if EF <40% No Meds if any: NOT Prescribed or Continued at Discharge Congestive Heart Failure Inclusion Criteria At DC or during hospital stay patient has or had the following: CHF DIAGNOSIS No Discharge Core Measures Meds if any: Prescribed or Continued at Discharge Meds if any: NOT Prescribed or Continued at Discharge Cerebrovascular accident Inclusion Criteria At DC or during hospital stay patient has or had the following: CVA/TIA Diagnosis No Discharge Core Measures Meds if any: Prescribed or Continued at Discharge Meds if any: NOT Prescribed or Continued at Discharge Venous thromboembolism Inclusion Criteria VTE Diagnosis No VTE Type NONE VTE Confirmed by (Test) NONE Discharge Core Measures - Per Current guidelines, there needs to be overlap - treatment for the first 5 days of Warfarin therapy. - If discharged on Warfarin prior to 5 days of - overlap therapy, the patient will need to be - assessed for post discharge needs including - *Post discharge parental anticoagulation - *Warfarin and/or parental anticoagulation education - *Follow up date to check INR post discharge At least 5 days overlap therapy as Inpatient Yes Meds if any: Prescribed or Continued at Discharge Note: Overlap Therapy is Warfarin and Anticoagulant Meds if any: NOT Prescribed or Continued at Discharge
[2017-07-05 07:12] VITALS: BP 128/50
[2017-07-05 07:58] LABS: ABSOLUTE BASOPHIL COUNT 0 /CUMM (0.0-0.2); ABSOLUTE EOSINOPHIL COUNT 0.4 /CUMM (0.0-0.7); ABSOLUTE LYMPH COUNT 0.9 /CUMM (1.2-3.4); ABSOLUTE MONOCYTE COUNT 0.6 /CUMM (0.10-0.60); BASOPHIL % 0.3 % (0.0-2.0); EOSINOPHIL % 3.9 % (0-5); GRANULOCYTE % 82.2 % (42.2-75.2); HEMATOCRIT 21.8 % (37-47); MEAN CORPUSCULAR HGB CONC 33.8 G/DL (33.0-37.0); MEAN CORPUSCULAR VOLUME 91.5 FL (81.0-99.0); MEAN PLATELET VOLUME 6.9 FL (7.4-10.4); PLATELET COUNT 279 /CUMM (130-400); RBC DISTRIBUTION WIDTH 17.7 % (11.5-14.5); RED BLOOD CELL CT 2.38 /CUMM (4.20-5.40)
--- NOTE | 2017-07-05 09:15 | PN- Housestaff ---
See Addendum Subjective Follow-up For: Empyema, anemia Tele-Events Since Last Visit: SR, 70-100 Subjective: No overnight events. She is complaining about the anxiety, saying she isn't getting the medsfast enough. No other issues, potentiall ready to go home today with services. Review of Systems Constitutional: Reports: no symptoms. EENTM: Reports: no symptoms. Cardiovascular: Reports: no symptoms. Respiratory: Reports: no symptoms. Gastrointestinal: Reports: no symptoms. Genitourinary: Reports: no symptoms. Musculoskeletal: Reports: no symptoms. Skin: Reports: no symptoms. Neurological/Psychological: Reports: see HPI. Hematologic/Endocrine: Reports: no symptoms. Immunologic/Allergic: Reports: no symptoms. Objective Last 24 Hrs of Vital Signs/I&O Vital Signs Date Time Temp Pulse Resp B/P B/P Pulse O2 O2 Flow FiO2 Mean Ox Delivery Rate 07/05 0712 98.3 64 20 128/50 94 Nasal 1.0L Cannula 07/05 0709 97.8 07/05 0000 Nasal 1.0L Cannula 07/04 2319 98.2 63 16 122/60 95 Nasal Cannula 07/04 1910 98 Nasal 2.0L Cannula 07/04 1600 Nasal 1.0L Cannula 07/04 1543 97.2 65 20 120/70 94 Nasal 1.0L Cannula 07/04 1024 97 Nasal 1.0L Cannula Intake & Output 07/05 1600 07/05 0800 07/05 0000 Intake Total 240 480 Output Total 600 600 Balance -360 -120 Intake, Oral 240 480 Number 0 Bowel Movements Output, Urine 600 600 Physical Exam General Appearance: Alert, Oriented X3, Cooperative, No Acute Distress Cardiovascular: Regular Rate Lungs: Clear to Auscultation Abdomen: Normal Bowel Sounds, Soft, No Tenderness Current Medications: Current Medications Sig/Suleman Start time Last Medication Dose Route Stop Time Status Admin Acetaminophen 1,000 MG Q6P PRN 06/19 1130 AC 07/03 N/A 1 UNIT IV 0218 Albuterol Sulfate 3 ML BID 06/30 220 AC 07/04 INH 1020 Alprazolam 0.25 MG BID PRN 07/04 2200 AC 07/05 PO 07/11 215 09 Amoxicillin/ 500 MG Q12 07/03 1400 AC 07/05 Clavulanate Potassium PO 01/15 2201 0905 Calcium Carbonate 500 MG DAILY 06/21 1000 AC 07/05 PO 0905 Docusate Sodium 100 MG BID 06/12 2359 AC 07/05 PO 0904 Hydromorphone HCl 2 MG ONCE PRN 07/03 2330 AC 07/03 IV 2324 Hydromorphone HCl 2 MG Q6P PRN 07/03 1415 AC 07/05 PO 0000 Insulin Aspart 0 TIDAC/HS 07/02 2100 AC 07/05 SC 0845 Insulin Detemir 12 UNITS BID 07/02 2200 AC 07/05 SC 0904 Lidocaine 1 PAT DAILY@1700 06/20 1700 AC 07/04 EXT 1802 Melatonin 5 MG AT BEDTIME 06/21 220 07/04 PO 2114 Nitroglycerin 0.5 GM Q6P PRN 06/15 1830 TOP Oxycodone HCl 40 MG Q12 07/03 1412 AC 07/05 PO 0905 Pantoprazole Sodium 40 MG DAILY 06/30 1000 AC 07/05 IV 0905 Polycarbophil 1,250 MG DAILY 07/03 1000 AC 07/05 PO 0905 Senna/Docusate Sodium 1 TAB BID 06/27 1145 AC 07/05 PO 0905 Sodium Chloride 2 SPRAY Q4P PRN 06/27 0015 AC 06/27 TREY 0209 Tiotropium [place] 1 PUF DAILY 06/14 1000 AC 07/05 INH 0906 Zinc Oxide 1 JEVON BID 06/30 1248 AC 07/05 TOP 0904 Last 24 Hrs of Lab/Drew Results Last 24 Hrs of Labs/Mics: Laboratory Tests 07/05/17 0605: Anion Gap 12, Estimated GFR 19 L, BUN/Creatinine Ratio 11.9, CBC w Diff NO MAN DIFF REQ, RBC 2.38 L, MCV 91.5, MCH 31.0, RDW 17.7 H, MPV 6.9 L, Gran % 82.2 H, Lymphocytes % 8.4 L, Monocytes % 5.2, Eosinophils % 3.9, Basophils % 0.3, Absolute Granulocytes 9.0 H, Absolute Lymphocytes 0.9 L, Absolute Monocytes 0.6, Absolute Eosinophils 0.4, Absolute Basophils 0, PUBS MCHC 33.8 Assessment/Plan Assessment: 61-year-old woman, current smoker with a history of COPD, diabetes type 2 with diabetic neuropathy, left leg DVT status post IVC filter, chronic kidney disease , neuropathy and peripheral vascular disease, status post left BKA and amputations of the right first and third toes, last admitted to [facility] in September 2016 for cellulitis treated with cefazolin and discharged on Keflex, here with anemia, type II [place], and empyema. Patient had drainage and Pleurx catheter drain placed on the for question of empyema. Fluid was found to be slightly blood tinged serous grossly. Fluid composition showed elevated WBCs, RBCs, pH 6.4, LDH of 3819. She is on Unasyn. She was found to have extremely elevated white blood cell count on admission of 44. Chest x-ray done after placement on 06/13 showed persistent moderate volume of her right pleural effusion. WBCs continue to be elevated. Patient had repositioning of pigtail catheter and VQ scan done under anesthesia which returned with low to intermediate probability of PE so she was continued on IV heparin. As per cardiothoracic surgery, the patient might be bleeding and suggests discontinuing heparin. However as per cardiology the patient required anticoagulation for potential PE. Patient had pleurodesis and placement of VATS with removal of chest tubes. during her stay in ICU patient received 10 units of blood. she had guaic poisitive stools but negtaive upper and lower endoscopies for bleeding source. Today hemoglobin is 7.4. Plan #1 Acute hypoxic respiratory failure likely secondary to community-acquired pneumonia, COMPLICATED BY EMPYEMA: She was found to have an empyema which was drained with Pleurx catheter. Fluid was found to be exudative in nature. Catheter drainage was 650 mL of serous sanguinous fluid from first pigtail catheter placement with minimal drainage after repositioning. patient had persistent fluid so had pleurodesis with placement of vats and removal to go effect. -Augmentin #Type II myocardial infarction -According to Dr. Lucas, if patient has precordial chest pain then can begin NTG paste 1/2 inch Q 6 hours. -According to Dr. Lucas, cardiology, myocardial ischemia cannot be 100% excluded and patient should later have outpatient risk stratification with a stress test. Statin was discontinued owing to transaminitis. #Urinary tract infection: Dirty urine, cultures positive for staph aureus -She has received an adequate course of Vancomycin for a lower urinary tract infection. Resolved. #Anemia -Patient had hemoglobin 7.3this am. Will be transfused another unit of PRBC. Total 10 units. colo and egd have shown no bleeding source. colo recommended protonix 40mg, peripheral smear, fdp iron studies showed high ferritin, patient doesnt need iron. nephrology suggsted sstarted epogen 20,oooU subcutaneously every other week. she will have to have it at the cancer center and nephrology will set this up. #Insulin-dependent diabetes mellitus, Uncontrolled * insulin will need to be adjusted prior to discharge #anxiety Appreciate psychiatry recommendations # Elevated proBNP at 2590. No previous echo on record. * Echo showed good ejection fraction and no obvious wall motion regional abnormalities * Daily I/O and weight checks. #Acute kidney injury on chronic kidney disease * Monitory BEP. * Avoid nephrotoxins # Hyperkalemia * Potassium has normalized. K: 4.0 disposition patient refused rehab will go home with PT -Pain Control with Dilaudid and IV Tylenol -Diabetic diet -DVT prophylaxis Alps on right leg -Full code Problem List: 1. Acute blood loss anemia Pain Ratin Pain Location: none Pain Goal: Remain pain free Pain Plan: see a/p Tomorrow's Labs & Rationales: cbc, bep
--- NOTE | 2017-07-05 11:23 | Cons- Psychiatry ---
Psychiatric Consult Date of Consult: 07/04/17 Reason for Consult: "anxiety and pain meds" History of Present Illness: Per medicine notes, pt is current smoker with a history of COPD, diabetes type 2 with diabetic neuropathy, left leg DVT status post IVC filter, chronic kidney disease, neuropathy and peripheral vascular disease, status post 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 in September 2016 for cellulitis treated with cefazolin and discharged on Keflex, came for evaluation of chest pain of 4 days' duration associated with shortness of breath. Patient had drainage and Pleurx catheter drain placed on the for question of empyema. Fluid was found to be slightly blood tinged serous grossly. Fluid composition showed elevated WBCs, RBCs, pH 6.4, LDH of 3819. She is on Unasyn. She was found to have extremely elevated white blood cell count on admission of 44. Chest x-ray done after placement on 06/13 showed persistent moderate volume of her right pleural effusion. WBCs continue to be elevated. Patient had repositioning of pigtail catheter and VQ scan done under anesthesia which returned with low to intermediate probability of PE so she was continued on IV heparin. As per cardiothoracic surgery, the patient might be bleeding and suggests discontinuing heparin. However as per cardiology the patient required anticoagulation for potential PE. Patient had pleurodesis and placement of VATS with removal of chest tubes. during her stay in ICU patient received 10 units of blood. she had guaic poisitive stools but negtaive upper and lower endoscopies for bleeding source. On exam today, pt notes that she has been struggling with anxiety only in the past few months as her medical illness become more complicated and severe. She was started on xanax by Dr. Hays with good effect. More recently, she has been feeling more anxious and would like to restart, xanax 0.25mg BID. Pt denies depression despite complicated medical illnesses. Has panic attacks from time to time. Denies SI or HI. Denies manic, psychotic or truama-related sx. Allergies: Coded Allergies: NO KNOWN ALLERGIES (NONE 06/26/17) Current Medications: Current Medications Sig/Suleman Start time Last Medication Dose Route Stop Time Status Admin Acetaminophen 1,000 MG Q6P PRN 06/19 1130 AC 07/03 N/A 1 UNIT IV 0218 Albuterol Sulfate 3 ML BID 06/30 2200 AC 07/05 INH 1018 Alprazolam 0.25 MG BID PRN 07/04 2200 AC 07/05 PO 07/11 215 0907 Amoxicillin/ 500 MG Q12 07/03 1400 AC 07/05 Clavulanate Potassium PO 07/06 220 0905 Calcium Carbonate 500 MG DAILY 06/21 1000 AC 07/05 PO 0905 Docusate Sodium 100 MG BID 06/12 2359 AC 07/05 PO 0904 Hydromorphone HCl 2 MG ONCE PRN 07/03 2330 AC 07/03 IV 2324 Hydromorphone HCl 2 MG Q6P PRN 07/03 1415 AC 07/05 PO 0000 Insulin Aspart 0 TIDAC/HS 07/02 2100 AC 07/05 SC 0845 Insulin Detemir 12 UNITS BID 07/02 2200 07/05 SC 0904 Lidocaine 1 PAT DAILY@1700 06/20 1700 AC 07/04 EXT 1802 Melatonin 5 MG AT BEDTIME 06/21 2200 07/04 PO 2114 Nitroglycerin 0.5 GM Q6P PRN 06/15 1830 [facility] Oxycodone HCl 40 MG Q12 07/03 1412 AC 07/05 PO 0905 Pantoprazole Sodium 40 MG DAILY 06/30 1000 AC 07/05 IV 0905 Polycarbophil 1,250 MG DAILY 07/03 1000 AC 07/05 PO 0905 Senna/Docusate Sodium 1 TAB BID 06/27 1145 AC 07/05 PO 0905 Sodium Chloride 2 SPRAY Q4P PRN 06/27 0015 AC 06/27 TREY 0209 Tiotropium [place] 1 PUF DAILY 06/14 1000 AC 07/05 INH 0906 Zinc Oxide 1 JEVON BID 06/30 1248 07/05 TOP 0904 Past History Past Medical History Neurological: peripheral neuropathy EENT: NONE Cardiovascular: hypertension, hyperlipidemia, PVD Respiratory: COPD Gastrointestinal: NONE Hepatic: NONE Renal: chronic kidney disease Musculoskeletal: Left BKA Amput 1st & 3rd toes on right Psychiatric: anxiety, depression Endocrine: diabetes, obesity Blood Disorders: DVT (left leg) Cancer(s): UTERINE CANCER- TAHBSO at [facility] 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 Past Surgical History Surgical History: cholecystectomy, hysterectomy (TAHBSO), left BKA rt great, 3rd toes amput status post IVC filter status post varicose vein surgery Psychiatric Treatment History Psych Treatment Inpatient Treatment No Outpatient Treatment No Diagnosis: Anxiety, Panic Risk Factors: chronic/serious med cond., high anxiety/distress Substance Use/Abuse History Drug Use/Abuse Substances Used/Abused No Substance Abuse Treatment Substance Abuse Treatment Past Substance Abuse [place] No Assessment/Plan Mental Status Orientation: Person, Place, Situation Affect: Anxious (slightly anxious but euthymic) Speech: WNL Neuro-vegetative: Energy Decreased Mental Status Exam: MSE General appearance: fair hygiene and grooming in hospital gown; Attitude: cooperative; Eye contact: appropriate; Movement: no psychomotor agitation or slowing; Speech: nl fluency, nl rate/rhythm, nl volume, nl prosody; Mood: "OK" Affect: slightly irritable, slightly anxious, appropriate, constricted, non- labile, congruent; Thought process: linear and goal-directed; Thought content: denied SI or HI, no paranoid ideation; Perception: denied hallucinations- auditory, visual, does not appear to be responding to internal stimuli; I/J: limited Lab Results: Laboratory Tests 07/05 0605 Chemistry Sodium (137 - 145 mmol/L) 141 Potassium (3.5 - 5.1 mmol/L) 3.8 Chloride (98 - 107 mmol/L) 106 Carbon Dioxide (22 - 30 mmol/L) 23 Anion Gap (5 - 16) 12 BUN (7 - 17 mg/dL) 31 H Creatinine (0.5 - 1.0 mg/dL) 2.6 H Estimated GFR (>60 ml/min) 19 L BUN/Creatinine Ratio (7 - 25 %) 11.9 Hematology CBC w Diff NO MAN DIFF REQ WBC (4.8 - 10.8 /CUMM) 11.0 H RBC (4.20 - 5.40 /CUMM) 2.38 L Hgb (12.0 - 16.0 G/DL) 7.4 *L Hct (37 - 47 %) 21.8 L MCV (81.0 - 99.0 FL) 91.5 MCH (27.0 - 31.0 PG) 31.0 RDW (11.5 - 14.5 %) 17.7 H Plt Count (130 - 400 /CUMM) 279 MPV (7.4 - 10.4 FL) 6.9 L Gran % (42.2 - 75.2 %) 82.2 H Lymphocytes % (20.5 - 51.1 %) 8.4 L Monocytes % (1.7 - 9.3 %) 5.2 Eosinophils % (0 - 5 %) 3.9 Basophils % (0.0 - 2.0 %) 0.3 Absolute Granulocytes (1.4 - 6.5 /CUMM) 9.0 H Absolute Lymphocytes (1.2 - 3.4 /CUMM) 0.9 L Absolute Monocytes (0.10 - 0.60 /CUMM) 0.6 Absolute Eosinophils (0.0 - 0.7 /CUMM) 0.4 Absolute Basophils (0.0 - 0.2 /CUMM) 0 PUBS MCHC (33.0 - 37.0 G/DL) 33.8 Diffential Diagnosis: Unspecified anxiety disorder Panic disorder without agorophobia Anxiety secondary to medical illness Impression: Pt with complex medical illness and chronic pain now more recently with increased anxiety. Pt's outpatient provider, Dr. Hays, has been prescribing xanax 0.25mg BID, which is verified by checking [place]. As patient taking concurrent opiates, discussed risk of BDZ use alone in older adults as well as risk with opiates. She acknowlegde this and wanted to continue xanax. As such, would recommend to restart a current dosage. Increases should be deferred to primary outpatient provider, Dr. Hays. Pt may benefit from buspar for anxiety as well. If she feels that xanax not effective, would recommend buspar. Pt is not danger to self or others nor gravely disabled, as such, no inpatient psychiatric stablization indicated. She does have capacity to make the desicion to restart xanax with concurrent opiate use and communicated a clear and consistent choice after weighing the risks, benefits, and side effects. 1. Pt not danger to self, others, nor gravely disabled. 2. CTPMP checked, would restart xanax 0.25mg BID for anxiety (standing); increases can be determined by outpatient MD after discharge. Would recommend against increasing the xanax given multiple comorbidities at this time. 3. Consider buspar at 5mg BID (given renal impairment) Thank you for the consult.
--- NOTE | 2017-07-05 12:48 | PN- Diabetes ---
Assessment/Plan Assessment: This 61-year-old woman with a known history of type 2 diabetes mellitus associated with morbid obesity and with severe complications including a left below the knee amputation diabetic neuropathy and chronic kidney diseases stage 4 presented to the emergency room with respiratory failure. The patient underwent right thoracotomy with drainage of an empyema. A great deal of loculation of fibrosis was found apparently according to the operative note. The patient is presently on Levemir 12 units twice a day and sliding scale NovoLog. Her FSGs were 175, 256, 206 and 119. Psychatric team saw patient and she was put on Buspar 5 mg twice a day. Patient has been feeling less anxious. Plan: Her glucose level has been slightly higher today. However, patient prefers keeping he current insulin regimen for now. We will continue monitoring her FSGs. will follow. Subjective Subjective: She feels less anxious. Objective Last 24 Hrs of Vital Signs/I&O Vital Signs Date Time Temp Pulse Resp B/P B/P Pulse O2 O2 Flow FiO2 Mean Ox Delivery Rate 07/05 1023 98 Nasal 2.0L Cannula 07/05 0800 94 Nasal 1.0L Cannula 07/05 0712 98.3 64 20 128/50 94 Nasal 1.0L Cannula 07/05 0709 97.8 07/05 0000 Nasal 1.0L Cannula 07/04 2319 98.2 63 16 122/60 95 Nasal Cannula 07/04 1910 98 Nasal 2.0L Cannula 07/04 1600 Nasal 1.0L Cannula 07/04 1543 97.2 65 20 120/70 94 Nasal 1.0L Cannula Intake & Output 07/05 1600 07/05 0800 07/05 0000 Intake Total 240 480 Output Total 600 600 Balance -360 -120 Intake, Oral 240 480 Number 0 Bowel Movements Output, Urine 600 600 Findings Pertinent Lab/Drew Results: Laboratory Tests 07/05 0605 Chemistry Sodium (137 - 145 mmol/L) 141 Potassium (3.5 - 5.1 mmol/L) 3.8 Chloride (98 - 107 mmol/L) 106 Carbon Dioxide (22 - 30 mmol/L) 23 Anion Gap (5 - 16) 12 BUN (7 - 17 mg/dL) 31 H Creatinine (0.5 - 1.0 mg/dL) 2.6 H Estimated GFR (>60 ml/min) 19 L BUN/Creatinine Ratio (7 - 25 %) 11.9 Hematology CBC w Diff NO MAN DIFF REQ WBC (4.8 - 10.8 /CUMM) 11.0 H RBC (4.20 - 5.40 /CUMM) 2.38 L Hgb (12.0 - 16.0 G/DL) 7.4 *L Hct (37 - 47 %) 21.8 L MCV (81.0 - 99.0 FL) 91.5 MCH (27.0 - 31.0 PG) 31.0 RDW (11.5 - 14.5 %) 17.7 H Plt Count (130 - 400 /CUMM) 279 MPV (7.4 - 10.4 FL) 6.9 L Gran % (42.2 - 75.2 %) 82.2 H Lymphocytes % (20.5 - 51.1 %) 8.4 L Monocytes % (1.7 - 9.3 %) 5.2 Eosinophils % (0 - 5 %) 3.9 Basophils % (0.0 - 2.0 %) 0.3 Absolute Granulocytes (1.4 - 6.5 /CUMM) 9.0 H Absolute Lymphocytes (1.2 - 3.4 /CUMM) 0.9 L Absolute Monocytes (0.10 - 0.60 /CUMM) 0.6 Absolute Eosinophils (0.0 - 0.7 /CUMM) 0.4 Absolute Basophils (0.0 - 0.2 /CUMM) 0 PUBS MCHC (33.0 - 37.0 G/DL) 33.8
--- NOTE | 2017-07-05 14:47 | PN- Infect Dx ---
Subjective Subjective: Feeling better; no chest tenderness. Feels anxious. Review of Systems Comments: 12 points reviewed as noted, otherwise negative. Objective Last 24 Hrs of Vital Signs/I&O Vital Signs Date Time Temp Pulse Resp B/P B/P Pulse O2 O2 Flow FiO2 Mean Ox Delivery Rate 07/05 1023 98 Nasal 2.0L Cannula 07/05 0800 94 Nasal 1.0L Cannula 07/05 0712 98.3 64 20 128/50 94 Nasal 1.0L Cannula 07/05 0709 97.8 07/05 0000 Nasal 1.0L Cannula 07/04 2319 98.2 63 16 122/60 95 Nasal Cannula 07/04 1910 98 Nasal 2.0L Cannula 07/04 1600 Nasal 1.0L Cannula 07/04 1543 97.2 65 20 120/70 94 Nasal 1.0L Cannula Intake & Output 07/05 1600 07/05 0800 07/05 0000 Intake Total 240 480 Output Total 600 600 Balance -360 -120 Intake, Oral 240 480 Number 0 Bowel Movements Output, Urine 600 600 Physical Exam Other Physical Findings: She appears well in no acute distress Lungs decreased breath sound at the right base Heart regular rhythm with no murmur Extremities chronic venous stasis changes edema of the right lower extremity Results Last 24 Hours of Lab Results: Laboratory Tests 07/05 0605 Chemistry Sodium (137 - 145 mmol/L) 141 Potassium (3.5 - 5.1 mmol/L) 3.8 Chloride (98 - 107 mmol/L) 106 Carbon Dioxide (22 - 30 mmol/L) 23 Anion Gap (5 - 16) 12 BUN (7 - 17 mg/dL) 31 H Creatinine (0.5 - 1.0 mg/dL) 2.6 H Estimated GFR (>60 ml/min) 19 L BUN/Creatinine Ratio (7 - 25 %) 11.9 Hematology CBC w Diff NO MAN DIFF REQ WBC (4.8 - 10.8 /CUMM) 11.0 H RBC (4.20 - 5.40 /CUMM) 2.38 L Hgb (12.0 - 16.0 G/DL) 7.4 *L Hct (37 - 47 %) 21.8 L MCV (81.0 - 99.0 FL) 91.5 MCH (27.0 - 31.0 PG) 31.0 RDW (11.5 - 14.5 %) 17.7 H Plt Count (130 - 400 /CUMM) 279 MPV (7.4 - 10.4 FL) 6.9 L Gran % (42.2 - 75.2 %) 82.2 H Lymphocytes % (20.5 - 51.1 %) 8.4 L Monocytes % (1.7 - 9.3 %) 5.2 Eosinophils % (0 - 5 %) 3.9 Basophils % (0.0 - 2.0 %) 0.3 Absolute Granulocytes (1.4 - 6.5 /CUMM) 9.0 H Absolute Lymphocytes (1.2 - 3.4 /CUMM) 0.9 L Absolute Monocytes (0.10 - 0.60 /CUMM) 0.6 Absolute Eosinophils (0.0 - 0.7 /CUMM) 0.4 Absolute Basophils (0.0 - 0.2 /CUMM) 0 PUBS MCHC (33.0 - 37.0 G/DL) 33.8 Last 24 Hours of Drew Results: reviewed Recent Imaging Studies: reviewed Assessment/Plan Impression: 61 y/o WF known with COPD, diabetes type 2 with diabetic neuropathy, left leg DVT status post IVC filter, chronic kidney disease, neuropathy and peripheral vascular disease. Doing well, with temperatures and white blood cell count remaining normal, on Unasyn now 12 days status post right thoracotomy and decortication of the right lower lobe for drainage of an empyema secondary to Haemophilus influenzae, which was isolated from her blood cultures, with both of her chest tubes now removed. Mild leukocytosis Her anemia, now stable, remains unexplained with no obvious source on either upper endoscopy or colonoscopy. Suggestion: 1. Continue Augmentin 500 mg po every 12 hours for 2 more days. call if developing diarrhea. 2. Monitor CBc.
[2017-07-05 14:48] VITALS: BP 122/52
[2017-07-05 23:04] VITALS: BP 138/72
[2017-07-06 06:50] VITALS: BP 150/50
--- NOTE | 2017-07-06 08:16 | PN- Diabetes ---
Assessment/Plan Assessment: This 61-year-old woman with a known history of type 2 diabetes mellitus associated with morbid obesity and with severe complications including a left below the knee amputation diabetic neuropathy and chronic kidney diseases stage 4 presented to the emergency room with respiratory failure. The patient underwent right thoracotomy with drainage of an empyema. A great deal of loculation of fibrosis was found apparently according to the operative note. The patient is presently on Levemir 12 units twice a day and sliding scale NovoLog. Her FSGs yesterday were 206 before breakfast, 119 before lunch, 132 before dinner, and 183 at bedtime. Psychatric team saw patient and she was put on Buspar 5 mg twice a day. Patient has been feeling less anxious. Plan: Suggest continue the present insulin regimen. The patient is extremely worried about being able to get into her house when she is sent home. She needs to be transported home and right into her house because there is nobody to help her get up the stairs at her entrance. Subjective Subjective: Still feels anxious Review of Systems Constitutional: Denies: chills, fever. Cardiovascular: Denies: chest pain. Respiratory: Denies: short of breath. Gastrointestinal: Denies: abdominal pain, nausea, vomiting. Skin: Reports: no symptoms. Objective Last 24 Hrs of Vital Signs/I&O Vital Signs Date Time Temp Pulse Resp B/P B/P Pulse O2 O2 Flow FiO2 Mean Ox Delivery Rate 07/06 0650 97.8 68 20 150/50 90 Nasal Cannula 07/06 0000 94 Nasal 1.0L Cannula 07/05 2304 97.7 72 18 138/72 96 Nasal 2.0L Cannula 07/05 1910 97 Nasal 1.0L Cannula 07/05 1600 Nasal 1.0L Cannula 07/05 1448 98.4 66 18 122/52 93 Nasal 2.0L Cannula 07/05 1023 98 Nasal 2.0L Cannula Intake & Output 07/06 1600 07/06 0800 07/06 0000 Intake Total 400 400 Output Total 650 275 Balance -250 125 Intake, Oral 400 400 Output, Urine 650 275 Vital Signs Date Time Temp Pulse Resp B/P B/P Pulse O2 O2 Flow FiO2 Mean Ox Delivery Rate 07/06 0650 97.8 68 20 150/50 90 Nasal Cannula 07/06 0000 94 Nasal 1.0L Cannula 07/05 2304 97.7 72 18 138/72 96 Nasal 2.0L Cannula 07/05 1910 97 Nasal 1.0L Cannula 07/05 1600 Nasal 1.0L Cannula 07/05 1448 98.4 66 18 122/52 93 Nasal 2.0L Cannula 07/05 1023 98 Nasal 2.0L Cannula Intake & Output 07/06 1600 07/06 0800 07/06 0000 Intake Total 400 400 Output Total 650 275 Balance -250 125 Intake, Oral 400 400 Output, Urine 650 275 Physical Exam General Appearance: alert, awake, anxious Head: normal appearance Respiratory: normal breath sounds Cardiovascular: regular rate/rhythm Abdomen: normal bowel sounds Extremities: left BKA Current Medications: Current Medications Sig/Suleman Start time Last Medication Dose Route Stop Time Status Admin Acetaminophen 1,000 MG Q6P PRN 06/19 1130 AC 07/03 N/A 1 UNIT IV 0218 Albuterol Sulfate 3 ML BID 06/30 2200 AC 07/05 INH 1910 Alprazolam 0.25 MG BID 07/05 1217 AC 07/05 PO 07/12 121 2141 Alprazolam 0.25 MG BID PRN 07/04 2200 DC 07/05 PO 07/11 2159 0907 Amoxicillin/ 500 MG Q12 07/03 1400 AC 07/05 Clavulanate Potassium PO 07/06 220 2141 Buspirone HCl 5 MG BID 07/05 1217 AC 07/05 PO 2141 Calcium Carbonate 500 MG DAILY 06/21 1000 AC 07/05 PO 0905 Docusate Sodium 100 MG BID 06/12 2359 AC 07/05 PO 0904 Hydromorphone HCl 2 MG ONCE PRN 07/03 2330 AC 07/03 IV 2324 Hydromorphone HCl 2 MG Q6P PRN 07/03 1415 AC 07/06 PO 0246 Insulin Aspart 0 TIDAC/HS 07/02 2100 AC 07/05 SC 1647 Insulin Detemir 12 UNITS BID 07/02 2200 AC 07/05 SC 2142 Lidocaine 1 PAT DAILY@1700 06/20 1700 AC 07/05 EXT 1645 Melatonin 5 MG AT BEDTIME 06/21 220 AC 07/05 PO 2141 Nitroglycerin 0.5 GM Q6P PRN 06/15 1830 AC TOP Oxycodone HCl 40 MG Q12 07/03 1412 AC 07/05 PO 2142 Pantoprazole Sodium 40 MG DAILY 06/30 1000 AC 07/05 IV 0905 Polycarbophil 1,250 MG DAILY 07/03 1000 AC 07/05 PO 0905 Senna/Docusate Sodium 1 TAB BID 06/27 1145 AC 07/05 PO 0905 Sodium Chloride 2 SPRAY Q4P PRN 06/27 0015 AC 06/27 TREY 0209 Tiotropium [place] 1 PUF DAILY 06/14 1000 AC 07/05 INH 0906 Zinc Oxide 1 JEVON BID 06/30 1248 AC 07/05 TOP 2215 Findings Pertinent Lab/Drew Results: Current Medications Sig/Suleman Start time Last Medication Dose Route Stop Time Status Admin Acetaminophen 1,000 MG Q6P PRN 06/19 1130 AC 07/03 N/A 1 UNIT IV 0218 Albuterol Sulfate 3 ML BID 06/30 2200 AC 07/05 INH 1910 Alprazolam 0.25 MG BID 07/05 1217 AC 07/05 PO 07/12 1216 2141 Alprazolam 0.25 MG BID PRN 07/04 2200 DC 07/05 PO 07/11 2159 0907 Amoxicillin/ 500 MG Q12 07/03 1400 AC 07/05 Clavulanate Potassium PO 07/06 2201 2141 Buspirone HCl 5 MG BID 07/05 1217 AC 07/05 PO 2141 Calcium Carbonate 500 MG DAILY 06/21 1000 AC 07/05 PO 0905 Docusate Sodium 100 MG BID 06/12 2359 AC 07/05 PO 0904 Hydromorphone HCl 2 MG ONCE PRN 07/03 2330 AC 07/03 IV 2324 Hydromorphone HCl 2 MG Q6P PRN 07/03 1415 AC 07/06 PO 0246 Insulin Aspart 0 TIDAC/HS 07/02 2100 AC 07/05 SC 1647 Insulin Detemir 12 UNITS BID 07/02 2200 AC 07/05 SC 2142 Lidocaine 1 PAT DAILY@1700 06/20 1700 AC 07/05 EXT 1645 Melatonin 5 MG AT BEDTIME 06/21 220 AC 07/05 PO 2141 Nitroglycerin 0.5 GM Q6P PRN 06/15 1830 AC TOP Oxycodone HCl 40 MG Q12 07/03 1412 AC 07/05 PO 2142 Pantoprazole Sodium 40 MG DAILY 06/30 1000 AC 07/05 IV 0905 Polycarbophil 1,250 MG DAILY 07/03 1000 AC 07/05 PO 0905 Senna/Docusate Sodium 1 TAB BID 06/27 1145 AC 07/05 PO 0905 Sodium Chloride 2 SPRAY Q4P PRN 06/27 0015 06/27 TREY 0209 Tiotropium [place] 1 PUF DAILY 06/14 1000 AC 07/05 INH 0906 Zinc Oxide 1 JEVON BID 06/30 1248 07/05 [facility] [id number]
[2017-07-06 08:30] LABS: ABSOLUTE BASOPHIL COUNT 0.1 /CUMM (0.0-0.2); ABSOLUTE EOSINOPHIL COUNT 0.4 /CUMM (0.0-0.7); ABSOLUTE MONOCYTE COUNT 0.4 /CUMM (0.10-0.60); BASOPHIL % 0.5 % (0.0-2.0); EOSINOPHIL % 3.7 % (0-5); GRANULOCYTE % 81.7 % (42.2-75.2); HEMATOCRIT 21.4 % (37-47); MEAN CORPUSCULAR HGB 30.1 PG (27.0-31.0); MEAN CORPUSCULAR HGB CONC 32.8 G/DL (33.0-37.0); MEAN CORPUSCULAR VOLUME 91.8 FL (81.0-99.0); PLATELET COUNT 302 /CUMM (130-400); RBC DISTRIBUTION WIDTH 17.1 % (11.5-14.5); RED BLOOD CELL CT 2.34 /CUMM (4.20-5.40); WHITE BLOOD CELL COUNT 9.8 /CUMM (4.8-10.8)
--- NOTE | 2017-07-06 08:52 | PN- Housestaff ---
Subjective Follow-up For: Empyema, anemia Tele-Events Since Last Visit: nsr 57-64 with first degree hb 215 5 beat run vtach Subjective: patient states that she is very anxious. would like anxiolytics. also mentions she has a widespread itch. Review of Systems Constitutional: Reports: no symptoms. Skin: Reports: see HPI. Objective Last 24 Hrs of Vital Signs/I&O Vital Signs Date Time Temp Pulse Resp B/P B/P Pulse O2 O2 Flow FiO2 Mean Ox Delivery Rate 07/06 1439 98.3 58 18 126/50 94 Nasal Cannula 07/06 0857 95 Nasal 1.0L Cannula 07/06 0800 97 Nasal 1.0L Cannula 07/06 0650 97.8 68 20 150/50 90 Nasal Cannula 07/06 0000 94 Nasal 1.0L Cannula 07/05 2304 97.7 72 18 138/72 96 Nasal 2.0L Cannula 07/05 1910 97 Nasal 1.0L Cannula Intake & Output 07/06 1600 07/06 0800 07/06 0000 Intake Total 300 400 400 Output Total 400 650 275 Balance -100 -250 125 Intake, Oral 300 400 400 Output, Urine 400 650 275 Physical Exam General Appearance: Alert, Oriented X3, Cooperative, No Acute Distress Skin: No Rashes Cardiovascular: Regular Rate, Normal S1, Normal S2 Lungs: Clear to Auscultation Extremities: No Clubbing Current Medications: Current Medications Sig/Suleman Start time Last Medication Dose Route Stop Time Status Admin Acetaminophen 1,000 MG Q6P PRN 06/19 1130 AC 07/03 N/A 1 UNIT IV 0218 Albuterol Sulfate 3 ML BID 06/30 2200 AC 07/06 INH 0840 Alprazolam 0.25 MG BID 07/05 1217 AC 07/06 PO 07/12 1216 0824 Amoxicillin/ 500 MG Q12 07/03 1400 AC 07/06 Clavulanate Potassium PO 07/06 2201 0824 Buspirone HCl 5 MG BID 07/05 1217 AC 07/06 PO 0824 Calcium Carbonate 500 MG DAILY 06/21 1000 AC 07/06 PO 0824 Docusate Sodium 100 MG BID 06/12 2359 AC 07/06 PO 0823 Hydromorphone HCl 2 MG ONCE PRN 07/03 2330 AC 07/06 IV 1224 Hydromorphone HCl 2 MG Q6P PRN 07/03 1415 AC 07/06 PO 1234 Insulin Aspart 0 TIDAC/HS 07/02 2100 AC 07/06 SC 1223 Insulin Detemir 12 UNITS BID 07/02 2200 AC 07/06 SC 0826 Lidocaine 1 PAT DAILY@1700 06/20 1700 AC 07/05 EXT 1645 Loratadine 10 MG DAILY 07/06 1442 AC PO Melatonin 5 MG AT BEDTIME 06/21 2200 AC 07/05 PO 2141 Nitroglycerin 0.5 GM Q6P PRN 06/15 1830 AC TOP Oxycodone HCl 40 MG Q12 07/03 1412 AC 07/06 PO 0824 Pantoprazole Sodium 40 MG DAILY 06/30 1000 AC 07/06 IV 0825 Polycarbophil 1,250 MG DAILY 07/03 1000 AC 07/06 PO 0824 Senna/Docusate Sodium 1 TAB BID 06/27 1145 AC 07/06 PO 0823 Sodium Chloride 2 SPRAY Q4P PRN 06/27 0015 AC 06/27 TREY 0209 Tiotropium [place] 1 PUF DAILY 06/14 1000 AC 07/06 INH 1013 Zinc Oxide 1 JEVON BID 06/30 1248 AC 07/06 TOP 0825 Last 24 Hrs of Lab/Drew Results Last 24 Hrs of Labs/Mics: Laboratory Tests 07/06/17 0643: Anion Gap 12, Estimated GFR 19 L, BUN/Creatinine Ratio 10.8, CBC w Diff NO MAN DIFF REQ, RBC 2.34 L, MCV 91.8, MCH 30.1, RDW 17.1 H, MPV 7.0 L, Gran % 81.7 H, Lymphocytes % 10.2 L, Monocytes % 3.9, Eosinophils % 3.7, Basophils % 0.5, Absolute Granulocytes 8.0 H, Absolute Lymphocytes 1.0 L, Absolute Monocytes 0.4, Absolute Eosinophils 0.4, Absolute Basophils 0.1, PUBS MCHC 32.8 L Assessment/Plan Assessment: 61-year-old woman, current smoker with a history of COPD, diabetes type 2 with diabetic neuropathy, left leg DVT status post IVC filter, chronic kidney disease , neuropathy and peripheral vascular disease, status post left BKA and amputations of the right first and third toes, last admitted to [facility] in September 2016 for cellulitis treated with cefazolin and discharged on Keflex, here with anemia, type II WI, and empyema. Patient had drainage and Pleurx catheter drain placed on the for question of empyema. Fluid was found to be slightly blood tinged serous grossly. Fluid composition showed elevated WBCs, RBCs, pH 6.4, LDH of 3819. She is on Unasyn. She was found to have extremely elevated white blood cell count on admission of 44. Chest x-ray done after placement on 06/13 showed persistent moderate volume of her right pleural effusion. WBCs continue to be elevated. Patient had repositioning of pigtail catheter and VQ scan done under anesthesia which returned with low to intermediate probability of PE so she was continued on IV heparin. As per cardiothoracic surgery, the patient might be bleeding and suggests discontinuing heparin. However as per cardiology the patient required anticoagulation for potential PE. Patient had pleurodesis and placement of VATS with removal of chest tubes. during her stay in ICU patient received 10 units of blood. she had guaic poisitive stools but negtaive upper and lower endoscopies for bleeding source. Today hemoglobin is 7.0. patient is started on epogen. Plan #1 Acute hypoxic respiratory failure likely secondary to community-acquired pneumonia, COMPLICATED BY EMPYEMA: She was found to have an empyema which was drained with Pleurx catheter. Fluid was found to be exudative in nature. Catheter drainage was 650 mL of serous sanguinous fluid from first pigtail catheter placement with minimal drainage after repositioning. patient had persistent fluid so had pleurodesis with placement of vats and removal to go effect. -Augmentin 500 bid #Type II myocardial infarction -According to Dr. Lucas, if patient has precordial chest pain then can begin NTG paste 1/2 inch Q 6 hours. -According to Dr. Lucas, cardiology, myocardial ischemia cannot be 100% excluded and patient should later have outpatient risk stratification with a stress test. Statin was discontinued owing to transaminitis. #Urinary tract infection: Dirty urine, cultures positive for staph aureus -She has received an adequate course of Vancomycin for a lower urinary tract infection. Resolved. #Anemia -Patient had hemoglobin 7.0 this am. Will be transfused another unit of PRBC. Total 10 units. colo and egd have shown no bleeding source. colo recommended protonix 40mg iron studies showed high ferritin, patient doesnt need iron. nephrology suggsted sstarted epogen 20,oooU subcutaneously every other week. she will have to have it at the cancer center and nephrology will set this up. #Insulin-dependent diabetes mellitus, Uncontrolled * insulin will need to be adjusted prior to discharge #anxiety start buspar 5mg bid restart outpatient xanax .25 bid patient is requesting pain medications for outpatient and is anxious about receiving them # Elevated proBNP at 2590. No previous echo on record. * Echo showed good ejection fraction and no obvious wall motion regional abnormalities * Daily I/O and weight checks. #Acute kidney injury on chronic kidney disease * Monitory BEP. * Avoid nephrotoxins # Hyperkalemia * Potassium has normalized. #disposition patient refused rehab will go home with PT -Pain Control with Dilaudid and IV Tylenol -Diabetic diet -DVT prophylaxis Alps on right leg -Full code Problem List: 1. Acute blood loss anemia 2. Empyema Pain Ratin Pain Location: left chest Pain Goal: Pain 4 or less Pain Plan: prn Tomorrow's Labs & Rationales: na
--- NOTE | 2017-07-06 09:48 | PN- Att Addend ---
Attending Addendum Attending Brief Note Still very anxious DOes not know if she can get into the house as she has 3 stairs No overnight events. She is complaining about the anxiety, saying she isn't getting the medsfast enough. No other issues, potentiall ready to go home today with services. Review of Systems Constitutional: Reports: no symptoms. EENTM: Reports: no symptoms. Cardiovascular: Reports: no symptoms. Respiratory: Reports: no symptoms. Gastrointestinal: Reports: no symptoms. Genitourinary: Reports: no symptoms. Musculoskeletal: Reports: no symptoms. Skin: Reports: no symptoms. Neurological/Psychological: Reports: see HPI. Hematologic/Endocrine: Reports: no symptoms. Immunologic/Allergic: Reports: no symptoms. Intake & Output 07/06 1600 07/06 0800 07/06 0000 Intake Total 400 400 Output Total 650 275 Balance -250 125 Intake, Oral 400 400 Output, Urine 650 275 Current Medications Sig/Suleman Start time Last Medication Dose Route Stop Time Status Admin Acetaminophen 1,000 MG Q6P PRN 06/19 1130 AC 07/03 N/A 1 UNIT IV 0218 Albuterol Sulfate 3 ML BID 06/30 2200 AC 07/06 INH 0840 Alprazolam 0.25 MG BID 07/05 1217 AC 07/06 PO 07/12 1216 0824 Alprazolam 0.25 MG BID PRN 07/04 2200 DC 07/05 PO 07/11 2159 0907 Amoxicillin/ 500 MG Q12 07/03 1400 AC 07/06 Clavulanate Potassium PO 07/06 2201 0824 Buspirone HCl 5 MG BID 07/05 1217 AC 07/06 PO 0824 Calcium Carbonate 500 MG DAILY 06/21 1000 AC 07/06 PO 0824 Docusate Sodium 100 MG BID 06/12 2359 AC 07/06 PO 0823 Hydromorphone HCl 2 MG ONCE PRN 07/03 2330 AC 07/03 IV 2324 Hydromorphone HCl 2 MG Q6P PRN 07/03 1415 AC 07/06 PO 0246 Insulin Aspart 0 TIDAC/HS 07/02 2100 AC 07/06 SC 0825 Insulin Detemir 12 UNITS BID 07/02 2200 AC 07/06 SC 0826 Lidocaine 1 PAT DAILY@1700 06/20 1700 AC 07/05 EXT 1645 Melatonin 5 MG AT BEDTIME 06/21 2200 AC 07/05 PO 2141 Nitroglycerin 0.5 GM Q6P PRN 06/15 1830 AC TOP Oxycodone HCl 40 MG Q12 07/03 1412 AC 07/06 PO 0824 Pantoprazole Sodium 40 MG DAILY 06/30 1000 AC 07/06 IV 0825 Polycarbophil 1,250 MG DAILY 07/03 1000 AC 07/06 PO 0824 Senna/Docusate Sodium 1 TAB BID 06/27 1145 AC 07/06 PO 0823 Sodium Chloride 2 SPRAY Q4P PRN 06/27 0015 AC 06/27 TREY 0209 Tiotropium [place] 1 PUF DAILY 06/14 1000 AC 07/05 INH 0906 Zinc Oxide 1 JEVON BID 06/30 1248 07/06 TOP 0825 Laboratory Tests 07/06 07/05 0643 0605 Chemistry Sodium (137 - 145 mmol/L) 141 141 Potassium (3.5 - 5.1 mmol/L) 3.9 3.8 Chloride (98 - 107 mmol/L) 106 106 Carbon Dioxide (22 - 30 mmol/L) 23 23 Anion Gap (5 - 16) 12 12 BUN (7 - 17 mg/dL) 28 H 31 H Creatinine (0.5 - 1.0 mg/dL) 2.6 H 2.6 H Estimated GFR (>60 ml/min) 19 L 19 L BUN/Creatinine Ratio (7 - 25 %) 10.8 11.9 Hematology CBC w Diff Pending NO MAN DIFF REQ WBC (4.8 - 10.8 /CUMM) Pending 11.0 H RBC (4.20 - 5.40 /CUMM) Pending 2.38 L Hgb (12.0 - 16.0 G/DL) Pending 7.4 *L Hct (37 - 47 %) Pending 21.8 L MCV (81.0 - 99.0 FL) Pending 91.5 MCH (27.0 - 31.0 PG) Pending 31.0 RDW (11.5 - 14.5 %) Pending 17.7 H Plt Count (130 - 400 /CUMM) Pending 279 MPV (7.4 - 10.4 FL) Pending 6.9 L Gran % (42.2 - 75.2 %) 82.2 H Lymphocytes % (20.5 - 51.1 %) 8.4 L Monocytes % (1.7 - 9.3 %) 5.2 Eosinophils % (0 - 5 %) 3.9 Basophils % (0.0 - 2.0 %) 0.3 Absolute Granulocytes (1.4 - 6.5 /CUMM) 9.0 H Absolute Lymphocytes (1.2 - 3.4 /CUMM) 0.9 L Absolute Monocytes (0.10 - 0.60 /CUMM) 0.6 Absolute Eosinophils (0.0 - 0.7 /CUMM) 0.4 Absolute Basophils (0.0 - 0.2 /CUMM) 0 PUBS MCHC (33.0 - 37.0 G/DL) Pending 33.8 Vital Signs Date Time Temp Pulse Resp B/P B/P Pulse O2 O2 Flow FiO2 Mean Ox Delivery Rate 07/06 0857 95 Nasal 1.0L Cannula 07/06 0650 97.8 68 20 150/50 90 Nasal Cannula 07/06 0000 94 Nasal 1.0L Cannula 07/05 2304 97.7 72 18 138/72 96 Nasal 2.0L Cannula 07/05 1910 97 Nasal 1.0L Cannula 07/05 1600 Nasal 1.0L Cannula 07/05 1448 98.4 66 18 122/52 93 Nasal 2.0L Cannula 07/05 1023 98 Nasal 2.0L Cannula Physical Exam General Appearance: Alert, Oriented X3, Cooperative, No Acute Distress Cardiovascular: Regular Rate Lungs: Clear to Auscultation Abdomen: Normal Bowel Sounds, Soft, No Tenderness 61-year-old woman with diabetes, peripheral vascular disease and neuropathy, status post left BKA over 8 years prior to admission, with a Charcot right foot, status post amputations of the first and third toes, chronic kidney disease, COPD, and a history of left lower extremity DVT, status post IVC filter, last hospitalized 8 months prior to admission with a cellulitis of the left BKA stump , admitted on June 12 with a several week history of a cough, occasionally productive of yellow sputum, undocumented fevers with chills, and more recent onset of right sided chest pain and increasing shortness of breath. ISSUES Resovled Empyema with complicated effusion with hemorragic fluid s/p decortication on abx Patient with now bilateral sup thrombophebitis with dvt aswell PRevious cellulitis DM with multiple complications including pvc, neuropathy with ckd Recurrent cellulitis better Severe anemia with slow gi bleed with no sig source so far Anxiety and depression REC PT OT eval Pt has 3 steps to get into the house and have pt eval if she can do this Needs home oxygen Cont insulin and DM mgt Start anxiety meds IF stable and if pt thinks that she can be managed at home then can be dcd with home services and continue her anxiolytis for now
[2017-07-06 14:39] VITALS: BP 126/50
--- NOTE | 2017-07-06 15:42 | PN- Infect Dx ---
Subjective Subjective: C/o severe skin itching; increasing LE's swelling. Feels anxious, asking for Xanax. Review of Systems Comments: 12 points reviewed as noted, otherwise negative. Objective Last 24 Hrs of Vital Signs/I&O Vital Signs Date Time Temp Pulse Resp B/P B/P Pulse O2 O2 Flow FiO2 Mean Ox Delivery Rate 07/06 1439 98.3 58 18 126/50 94 Nasal Cannula 07/06 0857 95 Nasal 1.0L Cannula 07/06 0800 97 Nasal 1.0L Cannula 07/06 0650 97.8 68 20 150/50 90 Nasal Cannula 07/06 0000 94 Nasal 1.0L Cannula 07/05 2304 97.7 72 18 138/72 96 Nasal 2.0L Cannula 07/05 1910 97 Nasal 1.0L Cannula 07/05 1600 Nasal 1.0L Cannula Intake & Output 07/06 1600 07/06 0800 07/06 0000 Intake Total 300 400 400 Output Total 400 650 275 Balance -100 -250 125 Intake, Oral 300 400 400 Output, Urine 400 650 275 Physical Exam Other Physical Findings: She appears well in no acute distress, elev BMI HEENT AT, sclera anicteric Neck: No CYNTHIA Lungs decreased breath sound at the right base no rales Heart regular rhythm with no murmur Abd protuberant soft Extremities 2+ LE's edema Skin chronic venous stasis changes edema of the right lower extremity Results Last 24 Hours of Lab Results: Laboratory Tests 07/06 0643 Chemistry Sodium (137 - 145 mmol/L) 141 Potassium (3.5 - 5.1 mmol/L) 3.9 Chloride (98 - 107 mmol/L) 106 Carbon Dioxide (22 - 30 mmol/L) 23 Anion Gap (5 - 16) 12 BUN (7 - 17 mg/dL) 28 H Creatinine (0.5 - 1.0 mg/dL) 2.6 H Estimated GFR (>60 ml/min) 19 L BUN/Creatinine Ratio (7 - 25 %) 10.8 Hematology CBC w Diff NO MAN DIFF REQ WBC (4.8 - 10.8 /CUMM) 9.8 RBC (4.20 - 5.40 /CUMM) 2.34 L Hgb (12.0 - 16.0 G/DL) 7.0 *L Hct (37 - 47 %) 21.4 L MCV (81.0 - 99.0 FL) 91.8 MCH (27.0 - 31.0 PG) 30.1 RDW (11.5 - 14.5 %) 17.1 H Plt Count (130 - 400 /CUMM) 302 MPV (7.4 - 10.4 FL) 7.0 L Gran % (42.2 - 75.2 %) 81.7 H Lymphocytes % (20.5 - 51.1 %) 10.2 L Monocytes % (1.7 - 9.3 %) 3.9 Eosinophils % (0 - 5 %) 3.7 Basophils % (0.0 - 2.0 %) 0.5 Absolute Granulocytes (1.4 - 6.5 /CUMM) 8.0 H Absolute Lymphocytes (1.2 - 3.4 /CUMM) 1.0 L Absolute Monocytes (0.10 - 0.60 /CUMM) 0.4 Absolute Eosinophils (0.0 - 0.7 /CUMM) 0.4 Absolute Basophils (0.0 - 0.2 /CUMM) 0.1 PUBS MCHC (33.0 - 37.0 G/DL) 32.8 L Last 24 Hours of Drew Results: n/a Recent Imaging Studies: n/a Assessment/Plan Impression: 61 y/o WF known with COPD, diabetes type 2 with diabetic neuropathy, left leg DVT status post IVC filter, chronic kidney disease, neuropathy and peripheral vascular disease. Doing well, with temperatures and white blood cell count remaining normal, on Unasyn now 12 days status post right thoracotomy and decortication of the right lower lobe for drainage of an empyema secondary to Haemophilus influenzae, which was isolated from her blood cultures, with both of her chest tubes now removed. Mild leukocytosis previous day (resolved). Her anemia, now stable, remains unexplained with no obvious source on either upper endoscopy or colonoscopy. F/U hematology recom. Suggestion: 1. Continue Augmentin 500 mg po every 12 hours for 2 more doses; please call if worsening skin itching or developing rash. 2. Zyrtec prn itching. 3. F/u psych recom regarding persistent anxiety
[2017-07-06 23:01] VITALS: BP 130/52
[2017-07-07 07:00] VITALS: BP 142/62
--- NOTE | 2017-07-07 07:21 | PN- Housestaff ---
Subjective Follow-up For: Pneumonia Empyema NSTEMI AMEYA Tele-Events Since Last Visit: NSR TERESA, 55 - 63 Subjective: Patient visited today, was sitting at the bedside comfortably in no acute distress, was alert and oriented. She reported to be anxious last night, as was planned to wean off o2 supplement in preparation of discharge. No fever or chills, no shortness of breathing, no chest pain, no other events. She reported anxiety associated with discharge, he specifically was worried about 3 steps at home. Social work/case management manager were consulted, family noted they're willing to help. PT worked with patient yesterday and suggested that she could walk up stairs with assistance. Patient is planned to be discharged today. Review of Systems Constitutional: Reports: see HPI. EENTM: Reports: no symptoms. Cardiovascular: Reports: no symptoms. Respiratory: Reports: see HPI, cough, short of breath (Pain in deep breathing). Objective Last 24 Hrs of Vital Signs/I&O Vital Signs Date Time Temp Pulse Resp B/P B/P Pulse O2 O2 Flow FiO2 Mean Ox Delivery Rate 07/07 0800 92 Nasal 1.0L Cannula 07/07 0700 98.1 65 19 142/62 93 Nasal 1.0L Cannula 07/07 0000 95 Nasal 1.0L Cannula 07/06 2301 98.9 68 20 130/52 95 Nasal Cannula 07/06 2050 99 Nasal 2.5L Cannula 07/06 1439 98.3 58 18 126/50 94 Nasal Cannula Intake & Output 07/07 1600 07/07 0800 07/07 0000 Intake Total 200 200 Output Total 400 350 Balance -200 -150 Intake, Oral 200 200 Output, Urine 400 350 Physical Exam General Appearance: Alert, Oriented X3, Cooperative, No Acute Distress Skin: No Significant Lesion Skin Temp/Moisture Exam: Warm/Dry Sepsis Skin Exam (color): Normal for Ethnicity HEENT: Atraumatic, EOMI Cardiovascular: Regular Rate, Normal S1, Normal S2 Lungs: Decreased breathing sounds bilaterally Abdomen: Soft, No Tenderness Neurological: Normal Speech Extremities: Unilateral BKA Current Medications: Current Medications Sig/Suleman Start time Last Medication Dose Route Stop Time Status Admin Acetaminophen 1,000 MG Q6P PRN 06/19 1130 AC 07/03 N/A 1 UNIT IV 0218 Albuterol Sulfate 3 ML BID 06/30 2200 AC 07/07 INH 1002 Alprazolam 0.25 MG BID 07/05 1217 AC 07/07 PO 07/12 1216 0906 Amoxicillin/ 500 MG Q12 07/03 1400 DC 07/06 Clavulanate Potassium PO 07/06 220 2106 Buspirone HCl 5 MG BID 07/05 1217 AC 07/07 PO 0906 Calcium Carbonate 500 MG DAILY 06/21 1000 AC 07/07 PO 0906 Docusate Sodium 100 MG BID 06/12 2359 AC 07/07 PO 0906 Hydromorphone HCl 2 MG ONCE PRN 07/03 2330 AC 07/06 IV 1224 Hydromorphone HCl 2 MG Q6P PRN 07/03 1415 07/06 PO 2335 Insulin Aspart 0 TIDAC/HS 07/02 2100 AC 07/07 SC 1236 Insulin Detemir 12 UNITS BID 07/02 2200 AC 07/07 SC 0905 Lidocaine 1 PAT DAILY@1700 06/20 1700 AC 07/06 EXT 1744 Loratadine 10 MG DAILY 07/06 1442 AC 07/07 PO 0906 Melatonin 5 MG AT BEDTIME 06/21 2200 AC 07/06 PO 2106 Nitroglycerin 0.5 GM Q6P PRN 06/15 1830 [facility] Oxycodone HCl 40 MG Q12 07/03 1412 AC 07/07 PO 0906 Pantoprazole Sodium 40 MG DAILY 06/30 1000 AC 07/07 IV 0904 Polycarbophil 1,250 MG DAILY 07/03 1000 AC 07/07 PO 0907 Ramelteon 8 MG ONCE PRN 07/06 2345 07/07 PO 0101 Senna/Docusate Sodium 1 TAB BID 06/27 1145 07/07 PO 0906 Sodium Chloride 2 SPRAY Q4P PRN 06/27 0015 06/27 TREY 0209 Tiotropium [place] 1 PUF DAILY 06/14 1000 07/07 INH 0907 Zinc Oxide 1 JEVON BID 06/30 1248 07/07 TOP 0956 Last 24 Hrs of Lab/Drew Results Last 24 Hrs of Labs/Mics: Laboratory Tests 07/07/17 0656: CBC w Diff NO MAN DIFF REQ, RBC 2.35 L, MCV 91.6, MCH 30.1, RDW 17.4 H, MPV 6.9 L, Gran % 77.4 H, Lymphocytes % 9.8 L, Monocytes % 6.2, Eosinophils % 5.8 H, Basophils % 0.8, Absolute Granulocytes 7.0 H, Absolute Lymphocytes 0.9 L, Absolute Monocytes 0.6, Absolute Eosinophils 0.5, Absolute Basophils 0.1, PUBS MCHC 32.9 L Assessment/Plan Assessment: 61-year-old woman, current smoker with a history of COPD, diabetes type 2 with diabetic neuropathy, left leg DVT status post IVC filter, chronic kidney disease , neuropathy and peripheral vascular disease, 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 Patient had drainage and Pleurx catheter drain placed on the for question of empyema. Fluid was found to be slightly blood tinged serous grossly. Fluid composition showed elevated WBCs, RBCs, pH 6.4, LDH of 3819. She is on Unasyn. She was found to have extremely elevated white blood cell count on admission of 44. Chest x-ray done after placement on 06/13 showed persistent moderate volume of her right pleural effusion. WBCs continue to be elevated. Patient had repositioning of pigtail catheter and VQ scan done under anesthesia which returned with low to intermediate probability of PE so she was continued on IV heparin. As per cardiothoracic surgery, the patient might be bleeding and suggests discontinuing heparin. However as per cardiology the patient required anticoagulation for potential PE. Patient had pleurodesis and placement of VATS with removal of chest tubes. during her stay in ICU patient received 10 units of blood. she had guaic poisitive stools but negtaive upper and lower endoscopies for bleeding source. Today hemoglobin is 7.0. patient is started on epogen. Plan Acute hypoxic respiratory failure likely secondary to community-acquired pneumonia, COMPLICATED BY EMPYEMA: She was found to have an empyema which was drained with Pleurx catheter. Fluid was found to be exudative in nature. Catheter drainage was 650 mL of serous sanguinous fluid from first pigtail catheter placement with minimal drainage after repositioning. patient had persistent fluid so had pleurodesis with placement of vats and removal to go effect. -Augmentin was discontinued - Planned to be discharged with recommendations to follow with CT surgery in outpatient #Type II myocardial infarction -According to Dr. Lucas, if patient has precordial chest pain then can begin NTG paste 1/2 inch Q 6 hours. -According to Dr. Lucas, cardiology, myocardial ischemia cannot be 100% excluded and patient should later have outpatient risk stratification with a stress test. Statin was discontinued owing to transaminitis. - Continued to monitor with recommendations to follow with dry wall sprayer in outpatient #Urinary tract infection: Dirty urine, cultures positive for staph aureus -She has received an adequate course of Vancomycin for a lower urinary tract infection. Resolved. #Anemia Patient had hemoglobin 7.1 this am. Total 10 PRBC units received. colo and egd have shown no bleeding source. colo recommended protonix 40mg iron studies showed high ferritin, patient doesnt need iron. nephrology suggsted sstarted epogen 20,oooU subcutaneously every other week. she will have to have it at the cancer center and nephrology will set this up. - Follow with nephrology regarding outpatient - Follow with GI for [place] #Insulin-dependent diabetes mellitus - sliding scale -Accuchecks Anxiety start buspar 5mg bid restart outpatient xanax .25 bid patient is requesting pain medications for outpatient and is anxious about receiving them - Continue outpatient follow Elevated proBNP at 2590. No previous echo on record. * Echo showed good ejection fraction and no obvious wall motion regional abnormalities * Daily I/O and weight checks. #Acute kidney injury on chronic kidney disease * Monitory BEP. Last Cr 2.6 * Avoid nephrotoxins # Hyperkalemia * Potassium has normalized. #disposition patient refused rehab will go home with PT -Pain Control with Dilaudid and IV Tylenol -Diabetic diet -DVT prophylaxis Alps on right leg -Full code Problem List: 1. Acute blood loss anemia 2. Pleural effusion 3. Pneumonia Pain Ratin Pain Location: Continue current plan, no pain today Pain Goal: Pain 4 or less Pain Plan: Continue current plan Tomorrow's Labs & Rationales: None, DC today
[2017-07-07 07:52] LABS: ABSOLUTE BASOPHIL COUNT 0.1 /CUMM (0.0-0.2); ABSOLUTE EOSINOPHIL COUNT 0.5 /CUMM (0.0-0.7); HEMATOCRIT 21.5 % (37-47)
[2017-07-07 08:02] LABS: ABSOLUTE LYMPH COUNT 0.9 /CUMM (1.2-3.4); ABSOLUTE MONOCYTE COUNT 0.6 /CUMM (0.10-0.60); BASOPHIL % 0.8 % (0.0-2.0); EOSINOPHIL % 5.8 % (0-5); GRANULOCYTE % 77.4 % (42.2-75.2); MEAN CORPUSCULAR HGB 30.1 PG (27.0-31.0); MEAN CORPUSCULAR HGB CONC 32.9 G/DL (33.0-37.0); MEAN CORPUSCULAR VOLUME 91.6 FL (81.0-99.0); MEAN PLATELET VOLUME 6.9 FL (7.4-10.4); PLATELET COUNT 366 /CUMM (130-400); RBC DISTRIBUTION WIDTH 17.4 % (11.5-14.5); RED BLOOD CELL CT 2.35 /CUMM (4.20-5.40); WHITE BLOOD CELL COUNT 9.1 /CUMM (4.8-10.8)
[2017-07-07] MEDS ORDERED: ALBUTEROL2.5 MG/3 M INH (10:39)
[2017-07-07] MEDS ORDERED: BUSPIRONE HCL5 M1 PO (10:39)
[2017-07-07] MEDS ORDERED: LEVEMIR100 UNIT/1 SC (10:45)
[2017-07-07] MEDS ORDERED: OMEPRAZOLE40 M1 PO (10:45)
[2017-07-07] MEDS ORDERED: LIDODERM1 EACH EXT (10:45)
[2017-07-07] MEDS ORDERED: MELATONIN5 M7 PO (10:45)
[2017-07-07] MEDS ORDERED: NITRO-BID1 GM TOP (10:45)
[2017-07-07] MEDS ORDERED: FIBER625 MG PO (10:46)
[2017-07-07] MEDS ORDERED: ROZEREM8 M1 PO (10:46)
--- NOTE | 2017-07-07 11:18 | PN- Nephrology ---
Assessment/Plan Assessment: Stage IV CKD - Baseline SCr approx 3. Clinically nephrotic. Likely 2/2 diabetic nephropathy. Currently at baseline. Will need renal f/u. Anemia - Iron stores OK. At least in part 2/2 CKD. Needs MEAGAN as outpatient which is being coordinated. Got Epogen 20,000U on 07/03 - for now should get q2 weeks - goal Hg 10-11. Met acidosis - Bicarb at goal. MBD - Phos at goal. Suggestion: -Will coordinate outpatient MEAGAN - 20,000U Epogen q2 week through [facility] to target Hg 10-11 -Cont Tums Will call patient with Epogen timing as well as f/u appt Please call [phone] with ?'s. Subjective Subjective: Pt c/o significant anxiety about getting up the 3 stairs to her home Breathing is OK Labs from yesterday - SCr 2.6, Hg 7.1 Weight stable at 253 Last chest x-ray on 07/01 - Objective Vital Signs and I&Os Vital Signs Date Time Temp Pulse Resp B/P B/P Pulse O2 O2 Flow FiO2 Mean Ox Delivery Rate 07/07 0700 98.1 65 19 142/62 93 Nasal 1.0L Cannula 07/07 0000 95 Nasal 1.0L Cannula 07/06 2301 98.9 68 20 130/52 95 Nasal Cannula 07/06 2050 99 Nasal 2.5L Cannula 07/06 1439 98.3 58 18 126/50 94 Nasal Cannula Intake & Output 07/07 1600 07/07 0400 07/06 1600 07/06 0400 07/05 1600 07/05 0400 Intake Total 200 200 700 400 540 480 Output Total 155 118 7934 275 1200 600 Balance -200 -150 -350 125 -660 -120 Intake, Oral 200 200 700 400 540 480 Number 0 Bowel Movements Output, Urine 358 196 1612 275 1200 600 Physical Exam: Gen - OK appearing, anxious HEENT - supple CV - RRR, no m/r/g Chest - clear, no w/r/r Abd - soft, NTND Ext - +edema Neuro - AOX3, grossly nonfocal Current Medications: Current Medications Sig/Suleman Start time Last Medication Dose Route Stop Time Status Admin Acetaminophen 1,000 MG Q6P PRN 06/19 1130 AC 07/03 N/A 1 UNIT IV 0218 Albuterol Sulfate 3 ML BID 06/30 2200 AC 07/07 INH 1002 Alprazolam 0.25 MG BID 07/05 1217 AC 07/07 PO 07/12 1216 0906 Amoxicillin/ 500 MG Q12 07/03 1400 DC 07/06 Clavulanate Potassium PO 07/06 2200 210 Buspirone HCl 5 MG BID 07/05 1217 AC 07/07 PO 0906 Calcium Carbonate 500 MG DAILY 06/21 1000 AC 07/07 PO 0906 Docusate Sodium 100 MG BID 06/12 2359 AC 07/07 PO 0906 Hydromorphone HCl 2 MG ONCE PRN 07/03 2330 AC 07/06 IV 1224 Hydromorphone HCl 2 MG Q6P PRN 07/03 1415 07/06 PO 2335 Insulin Aspart 0 TIDAC/HS 07/02 2100 07/07 SC 0906 Insulin Detemir 12 UNITS BID 07/02 2200 AC 07/07 SC 0905 Lidocaine 1 PAT DAILY@1700 06/20 1700 07/06 EXT 1744 Loratadine 10 MG DAILY 07/06 1442 07/07 PO 0906 Melatonin 5 MG AT BEDTIME 06/21 2200 AC 07/06 PO 2106 Nitroglycerin 0.5 GM Q6P PRN 06/15 1830 [facility] Oxycodone HCl 40 MG Q12 07/03 1412 07/07 PO 0906 Pantoprazole Sodium 40 MG DAILY 06/30 1000 07/07 IV 0904 Polycarbophil 1,250 MG DAILY 07/03 1000 AC 07/07 PO 0907 Ramelteon 8 MG ONCE PRN 07/06 2345 07/07 PO 0101 Senna/Docusate Sodium 1 TAB BID 06/27 1145 07/07 PO 0906 Sodium Chloride 2 SPRAY Q4P PRN 06/27 0015 06/27 TREY 0209 Tiotropium [place] 1 PUF DAILY 06/14 1000 07/07 INH 0907 Zinc Oxide 1 JEVON BID 06/30 1248 07/07 TOP 0956 Results Pertinent Lab Results: Laboratory Tests 07/07 07/06 0656 0643 Chemistry Sodium (137 - 145 mmol/L) 141 Potassium (3.5 - 5.1 mmol/L) 3.9 Chloride (98 - 107 mmol/L) 106 Carbon Dioxide (22 - 30 mmol/L) 23 Anion Gap (5 - 16) 12 BUN (7 - 17 mg/dL) 28 H Creatinine (0.5 - 1.0 mg/dL) 2.6 H Estimated GFR (>60 ml/min) 19 L BUN/Creatinine Ratio (7 - 25 %) 10.8 Hematology CBC w Diff NO MAN DIFF REQ NO MAN DIFF REQ WBC (4.8 - 10.8 /CUMM) 9.1 9.8 RBC (4.20 - 5.40 /CUMM) 2.35 L 2.34 L Hgb (12.0 - 16.0 G/DL) 7.1 *L 7.0 *L Hct (37 - 47 %) 21.5 L 21.4 L MCV (81.0 - 99.0 FL) 91.6 91.8 MCH (27.0 - 31.0 PG) 30.1 30.1 RDW (11.5 - 14.5 %) 17.4 H 17.1 H Plt Count (130 - 400 /CUMM) 366 302 MPV (7.4 - 10.4 FL) 6.9 L 7.0 L Gran % (42.2 - 75.2 %) 77.4 H 81.7 H Lymphocytes % (20.5 - 51.1 %) 9.8 L 10.2 L Monocytes % (1.7 - 9.3 %) 6.2 3.9 Eosinophils % (0 - 5 %) 5.8 H 3.7 Basophils % (0.0 - 2.0 %) 0.8 0.5 Absolute Granulocytes (1.4 - 6.5 /CUMM) 7.0 H 8.0 H Absolute Lymphocytes (1.2 - 3.4 /CUMM) 0.9 L 1.0 L Absolute Monocytes (0.10 - 0.60 /CUMM) 0.6 0.4 Absolute Eosinophils (0.0 - 0.7 /CUMM) 0.5 0.4 Absolute Basophils (0.0 - 0.2 /CUMM) 0.1 0.1 PUBS MCHC (33.0 - 37.0 G/DL) 32.9 L 32.8 L 07/05 0605 Chemistry Sodium (137 - 145 mmol/L) 141 Potassium (3.5 - 5.1 mmol/L) 3.8 Chloride (98 - 107 mmol/L) 106 Carbon Dioxide (22 - 30 mmol/L) 23 Anion Gap (5 - 16) 12 BUN (7 - 17 mg/dL) 31 H Creatinine (0.5 - 1.0 mg/dL) 2.6 H Estimated GFR (>60 ml/min) 19 L BUN/Creatinine Ratio (7 - 25 %) 11.9 Hematology CBC w Diff NO MAN DIFF REQ WBC (4.8 - 10.8 /CUMM) 11.0 H RBC (4.20 - 5.40 /CUMM) 2.38 L Hgb (12.0 - 16.0 G/DL) 7.4 *L Hct (37 - 47 %) 21.8 L MCV (81.0 - 99.0 FL) 91.5 MCH (27.0 - 31.0 PG) 31.0 RDW (11.5 - 14.5 %) 17.7 H Plt Count (130 - 400 /CUMM) 279 MPV (7.4 - 10.4 FL) 6.9 L Gran % (42.2 - 75.2 %) 82.2 H Lymphocytes % (20.5 - 51.1 %) 8.4 L Monocytes % (1.7 - 9.3 %) 5.2 Eosinophils % (0 - 5 %) 3.9 Basophils % (0.0 - 2.0 %) 0.3 Absolute Granulocytes (1.4 - 6.5 /CUMM) 9.0 H Absolute Lymphocytes (1.2 - 3.4 /CUMM) 0.9 L Absolute Monocytes (0.10 - 0.60 /CUMM) 0.6 Absolute Eosinophils (0.0 - 0.7 /CUMM) 0.4 Absolute Basophils (0.0 - 0.2 /CUMM) 0 PUBS MCHC (33.0 - 37.0 G/DL) 33.8 Imaging/Other Studies: EXAM TYPE: RAD - XRY-PORTABLE CHEST XRAY EXAMINATION: XR PORTABLE CHEST CLINICAL INFORMATION: Chest tube in place minimal drainage assess pneumothorax. COMPARISON: Multiple prior examinations most recent CT 06/29/2017 and portable chest x-ray 06/29/2017. . TECHNIQUE: Portable frontal view of the chest was obtained. FINDINGS: Right drainage tube in place overlying the right hemithorax of. Skin bernie present. Persistent pleural effusion likely partially loculated along the lateral chest wall unchanged. I do not see pneumothorax. Left chest is clear. Cardiac silhouette mediastinum pulmonary vascularity normal. IMPRESSION: No pneumothorax. Right hemithorax unchanged with drainage catheter and likely partially loculated pleural effusion unchanged. CT A/P KIDNEYS AND URETERS: The left kidney is relatively atrophic compared to the right. There is no hydronephrosis. There is bilateral perinephric stranding, mild.
--- NOTE | 2017-07-07 13:09 | PN- Att Addend ---
Attending Addendum Attending Brief Note Overall improved sitting in the chair, oxygen is on. Vital signs are stable no fever no new changes on physical still anemic. We'll start disposition plans arrange for home oxygen encouraged patient not to smoke. To follow with all the specialists. See the CMR. Intake & Output 07/07 1600 07/07 0400 07/06 1600 07/06 0400 07/05 1600 07/05 0400 Intake Total 200 200 700 400 540 480 Output Total 039 361 8785 275 1200 600 Balance -200 -150 -350 125 -660 -120 Intake, Oral 200 200 700 400 540 480 Number 0 Bowel Movements Output, Urine 761 441 8204 275 1200 600 Current Medications Sig/Suleman Start time Last Medication Dose Route Stop Time Status Admin Acetaminophen 1,000 MG Q6P PRN 06/19 1130 AC 07/03 N/A 1 UNIT IV 0218 Albuterol Sulfate 3 ML BID 06/30 2200 AC 07/07 INH 1002 Alprazolam 0.25 MG BID 07/05 1217 AC 07/07 PO 07/12 1216 0906 Amoxicillin/ 500 MG Q12 07/03 1400 DC 07/06 Clavulanate Potassium PO 07/06 220 2106 Buspirone HCl 5 MG BID 07/05 1217 AC 07/07 PO 0906 Calcium Carbonate 500 MG DAILY 06/21 1000 AC 07/07 PO 0906 Docusate Sodium 100 MG BID 06/12 2359 AC 07/07 PO 0906 Hydromorphone HCl 2 MG ONCE PRN 07/03 2330 AC 07/06 IV 1224 Hydromorphone HCl 2 MG Q6P PRN 07/03 1415 AC 07/06 PO 2335 Insulin Aspart 0 TIDAC/HS 07/02 2100 AC 07/07 SC 1236 Insulin Detemir 12 UNITS BID 07/02 2200 AC 07/07 SC 0905 Lidocaine 1 PAT DAILY@1700 06/20 1700 AC 07/06 EXT 1744 Loratadine 10 MG DAILY 07/06 1442 AC 07/07 PO 0906 Melatonin 5 MG AT BEDTIME 06/21 2200 AC 07/06 PO 2106 Nitroglycerin 0.5 GM Q6P PRN 06/15 1830 AC TOP Oxycodone HCl 40 MG Q12 07/03 1412 AC 07/07 PO 0906 Pantoprazole Sodium 40 MG DAILY 06/30 1000 AC 07/07 IV 0904 Polycarbophil 1,250 MG DAILY 07/03 1000 AC 07/07 PO 0907 Ramelteon 8 MG ONCE PRN 07/06 2345 AC 07/07 PO 0101 Senna/Docusate Sodium 1 TAB BID 06/27 1145 07/07 PO 0906 Sodium Chloride 2 SPRAY Q4P PRN 06/27 0015 AC 06/27 TREY 0209 Tiotropium [place] 1 PUF DAILY 06/14 1000 AC 07/07 INH 0907 Zinc Oxide 1 JEVON BID 06/30 1248 07/07 TOP 0956 Laboratory Tests 07/07/17 0656: CBC w Diff NO MAN DIFF REQ, RBC 2.35 L, MCV 91.6, MCH 30.1, RDW 17.4 H, MPV 6.9 L, Gran % 77.4 H, Lymphocytes % 9.8 L, Monocytes % 6.2, Eosinophils % 5.8 H, Basophils % 0.8, Absolute Granulocytes 7.0 H, Absolute Lymphocytes 0.9 L, Absolute Monocytes 0.6, Absolute Eosinophils 0.5, Absolute Basophils 0.1, PUBS MCHC 32.9 L 07/06/17 0643: Anion Gap 12, Estimated GFR 19 L, BUN/Creatinine Ratio 10.8, CBC w Diff NO MAN DIFF REQ, RBC 2.34 L, MCV 91.8, MCH 30.1, RDW 17.1 H, MPV 7.0 L, Gran % 81.7 H, Lymphocytes % 10.2 L, Monocytes % 3.9, Eosinophils % 3.7, Basophils % 0.5, Absolute Granulocytes 8.0 H, Absolute Lymphocytes 1.0 L, Absolute Monocytes 0.4, Absolute Eosinophils 0.4, Absolute Basophils 0.1, PUBS MCHC 32.8 L 07/05/17 0605: Anion Gap 12, Estimated GFR 19 L, BUN/Creatinine Ratio 11.9, CBC w Diff NO MAN DIFF REQ, RBC 2.38 L, MCV 91.5, MCH 31.0, RDW 17.7 H, MPV 6.9 L, Gran % 82.2 H, Lymphocytes % 8.4 L, Monocytes % 5.2, Eosinophils % 3.9, Basophils % 0.3, Absolute Granulocytes 9.0 H, Absolute Lymphocytes 0.9 L, Absolute Monocytes 0.6, Absolute Eosinophils 0.4, Absolute Basophils 0, PUBS MCHC 33.8 Vital Signs Date Time Temp Pulse Resp B/P B/P Pulse O2 O2 Flow FiO2 Mean Ox Delivery Rate 07/07 0800 92 Nasal 1.0L Cannula 07/07 0700 98.1 65 19 142/62 93 Nasal 1.0L Cannula 07/07 0000 95 Nasal 1.0L Cannula 07/06 2301 98.9 68 20 130/52 95 Nasal Cannula 07/06 2050 99 Nasal 2.5L Cannula 07/06 1439 98.3 58 18 126/50 94 Nasal Cannula
[2017-07-07 15:33] VITALS: BP 110/60
== END 2017-07-07 17:40 | disposition home health service (06) | DRG 853 ==
LOC: ERH 16:57 → 1NO 20:35 → ERHI 20:35 → CRI 20:35 → ENRESERV 21:23 → CANRESERV 21:23 → ENRESERV 21:27 → EDBEDREQTM 21:55 → EDBEDREQ 21:55 → ERHI 22:00 → ENRESERV 22:07 → ENTRNSPT 22:43 → 1NO 22:48 → CRI 22:48 → EDTRNSPTSTS 22:51 → CMPTRNSPT 23:04 → 1NO 06-13 20:49 → ENTRNSPT 06-20 11:23 → EDTRNSPTSTS 06-20 11:36 → CMPTRNSPT 06-20 11:57 → ENRESERV 06-23 15:04 → CRI 06-23 15:04 → ENTRNSPT 07-01 16:33 → EDTRNSPTSTS 07-01 16:53 → EDTRNSPT 07-01 16:53 → 1NO 07-01 17:11 → CMPTRNSPT 07-01 17:17 → ENTRNSPT 07-07 17:29 → EDTRNSPTSTS 07-07 17:31 → 1NO 07-07 17:40 → CMPTRNSPT 07-07 17:49
PROVIDERS: Internal Medicine; Internal Medicine Hematology & Oncology; Physician Assistant Medical; Radiology Vascular & Interventional Radiology; Student in an Organized Health Care Education/Training Program
PROC: 0W9930Z Drainage of Right Pleural Cavity with Drainage Device, Percutaneous Approach (ICD-10-PCS; 2017-06-13)
PROC: 3E0L3TZ Introduction of Destructive Agent into Pleural Cavity, Percutaneous Approach (ICD-10-PCS; 2017-06-16)
PROC: 0W9930Z Drainage of Right Pleural Cavity with Drainage Device, Percutaneous Approach (ICD-10-PCS; 2017-06-18)
PROC: 0BNK0ZZ Release Right Lung, Open Approach (ICD-10-PCS; principal; 2017-06-23)
PROC: 0W9900Z Drainage of Right Pleural Cavity with Drainage Device, Open Approach (ICD-10-PCS; principal; 2017-06-23)
PROC: 30233N1 Transfusion of Nonautologous Red Blood Cells into Peripheral Vein, Percutaneous Approach (ICD-10-PCS; 2017-06-23)
PROC: 0DJ08ZZ Inspection of Upper Intestinal Tract, Via Natural or Artificial Opening Endoscopic (ICD-10-PCS; 2017-06-30)
PROC: 0DJD8ZZ Inspection of Lower Intestinal Tract, Via Natural or Artificial Opening Endoscopic (ICD-10-PCS; 2017-07-02)
DX: A41.3 Sepsis due to Hemophilus influenzae (principal); J86.9 Pyothorax without fistula; J96.01 Acute respiratory failure with hypoxia; I21.A1 Myocardial infarction type 2; E87.2 Acidosis; J14 Pneumonia due to Hemophilus influenzae; D62 Acute posthemorrhagic anemia; E11.22 Type 2 diabetes mellitus with diabetic chronic kidney disease; N18.4 Chronic kidney disease, stage 4 (severe); E46 Unspecified protein-calorie malnutrition; I82.412 Acute embolism and thrombosis of left femoral vein; N17.9 Acute kidney failure, unspecified; Z68.41 Body mass index [BMI] 40.0-44.9, adult; I82.812 Embolism and thrombosis of superficial veins of left lower extremity; N39.0 Urinary tract infection, site not specified; K92.1 Melena; J90 Pleural effusion, not elsewhere classified; E11.51 Type 2 diabetes mellitus with diabetic peripheral angiopathy without gangrene; E11.65 Type 2 diabetes mellitus with hyperglycemia; E11.40 Type 2 diabetes mellitus with diabetic neuropathy, unspecified; E66.01 Morbid (severe) obesity due to excess calories; E78.5 Hyperlipidemia, unspecified; E87.5 Hyperkalemia; J44.9 Chronic obstructive pulmonary disease, unspecified; Z86.718 Personal history of other venous thrombosis and embolism; Z89.512 Acquired absence of left leg below knee; Z89.421 Acquired absence of other right toe(s); Z79.4 Long term (current) use of insulin; F32.9 Major depressive disorder, single episode, unspecified; M17.11 Unilateral primary osteoarthritis, right knee; K21.9 Gastro-esophageal reflux disease without esophagitis; F41.9 Anxiety disorder, unspecified; G89.29 Other chronic pain; F17.210 Nicotine dependence, cigarettes, uncomplicated; I12.9 Hypertensive chronic kidney disease with stage 1 through stage 4 chronic kidney disease, or unspecified chronic kidney disease; Z85.42 Personal history of malignant neoplasm of other parts of uterus
CPT/HCPCS: 1NP; 87070; 87075; 87184; CCU; 36415; 71045; 73562-RT; 74176; 77012; 78582; 81001; 82436; 83010; 86920; 87040; 87086; 87088; 87147; 87449; 87450; 87804; 87804-59; 88305; 93005; 93010; 93306; 93970; 96374; 96375; 97110-GO; 97116-GO; 97161-GP; 97164-GP; 97530-GO; A9540; C9290; C9399; J0131; J0456; J0690; J0696; J0713; J1170; J1644; J1815; J2060; J2930; J2997; J3370; J3490; J7040; J7042; J7060; P9016; Q2036

== ENCOUNTER 2017-07-10 13:33 | Observation (INO) | payer OTHER ==
[~2017-07-10] VITALS: Ht 167.6 cm; Wt 114.8 kg
[~2017-07-10 13:33] MED LIST changes: +ALBUTEROL2.5 MG/3 M INH; +ASPIRIN EC325 M2 PO; +B-121000 MC3 PO; +BUSPIRONE HCL5 M1 PO; +COLACE100 M1 PO; +FIBER625 MG PO; +LIDODERM1 EACH EXT; +LYRICA150 M1 PO; +MELATONIN5 M7 PO; +NITRO-BID1 GM TOP; +OMEPRAZOLE40 M1 PO; +ROZEREM8 M1 PO; +VITAMIN D250000 UNIT PO
[2017-07-10 14:45] LABS: ABSOLUTE BASOPHIL COUNT 0.1 /CUMM (0.0-0.2); ABSOLUTE EOSINOPHIL COUNT 0.3 /CUMM (0.0-0.7); ABSOLUTE GRANULOCYTE CT 8.4 /CUMM (1.4-6.5); ABSOLUTE LYMPH COUNT 0.8 /CUMM (1.2-3.4); ABSOLUTE MONOCYTE COUNT 0.6 /CUMM (0.10-0.60); BASOPHIL % 0.6 % (0.0-2.0); EOSINOPHIL % 2.9 % (0-5); GRANULOCYTE % 82.6 % (42.2-75.2); MEAN CORPUSCULAR HGB 30.1 PG (27.0-31.0); MEAN CORPUSCULAR HGB CONC 32.7 G/DL (33.0-37.0); MEAN PLATELET VOLUME 5.9 FL (7.4-10.4); RBC DISTRIBUTION WIDTH 17.7 % (11.5-14.5); RED BLOOD CELL CT 2.93 /CUMM (4.20-5.40); WHITE BLOOD CELL COUNT 10.1 /CUMM (4.8-10.8)
[2017-07-10 14:47] LABS: PLATELET COUNT 637 /CUMM (130-400)
--- NOTE | 2017-07-10 14:48 | ED DYSPNEA/ASTHMA COMPLAINT ---
History of Present Illness General Chief Complaint: General Adult Stated Complaint: PAIN, SOB, WEAKNESS, ANXIETY Source: patient, old records Exam Limitations: no limitations Vital Signs & Intake/Output Vital Signs & Intake/Output Vital Signs Date Time Temp Pulse Resp B/P B/P Pulse O2 O2 Flow FiO2 Mean Ox Delivery Rate 07/10 2242 98.0 63 19 148/60 92 Nasal 2.0L Cannula 07/10 2112 95.6 63 18 147/67 95 Room Air 07/10 1915 97.6 73 18 147/68 98 Room Air 07/10 1627 97.6 63 18 142/65 94 Nasal 2.0L Cannula 07/10 1611 Nasal 2.0L Cannula 07/10 1456 96.9 75 24 154/69 2 Nasal 2.0L Cannula 07/10 1449 Nasal 2.0L Cannula 07/10 1447 99 Nasal 2.0L Cannula 07/10 1342 97.1 82 24 185/77 99 Nasal 2.0L Cannula ED Intake and Output 07/11 0000 07/10 1200 Intake Total 240 Output Total Balance 240 Intake, Oral 240 Patient 253 lb Weight Weight Reported by Patient Measurement Method Allergies Coded Allergies: NO KNOWN ALLERGIES (NONE 06/26/17) Reconcile Medications Albuterol Sulfate 2.5 MG/3 ML (0.083 %) VIAL.NEB 3 ML INH BID PRN sob Alprazolam 0.25 MG TABLET 1 TAB PO BIDP PRN ANXIETY (Reported) Buspirone HCl 5 MG TABLET 5 MG PO BID anxiety Citalopram Hydrobromide (Citalopram HBr) 20 MG TABLET 1 TAB PO DAILY MENTAL HEALTH (Reported) Cyanocobalamin (Vitamin B-12) (B-12) 1,000 MCG TABLET 1 TAB PO DAILY SUPPLEMENT (Reported) Docusate Sodium (Colace) 100 MG CAPSULE 1 CAP PO BID STOOL SOFTENER (Reported ) Ergocalciferol (Vitamin D2) (Vitamin D2) 50,000 UNIT CAPSULE 1 CAP PO Q2W SUPPLEMENT (Reported) Furosemide 40 MG TABLET 40 MG PO DAILY DIURETIC (Reported) Insulin Aspart, Recombinant (Novolog Flexpen) 100 UNIT/ML INSULN.PEN DM ( Reported) Insulin Detemir (Levemir) 100 UNIT/ML VIAL 12 UNITS SC BID diabetes Lidocaine (Lidoderm) 5 % ADH..PATCH 1 PAT EXT DAILY@1700 PRN pain Linagliptin (Tradjenta) 5 MG TABLET 1 TAB PO DAILY DM (Reported) Melatonin 5 MG TABLET 5 MG PO AT BEDTIME PRN sleep Nitroglycerin (Nitro-Bid) 2 % OINT...G. 0.5 GM TOP Q6P PRN CHEST PAIN Omeprazole 40 MG CAPSULE.DR 1 CAP PO DAILY gi bleed Oxycodone HCl (Oxycontin) 80 MG TAB.ER.12H 1 TAB PO TID PRN PAIN (Reported) Polycarbophil (Fiber) 625 MG TABLET 1,250 MG PO DAILY supplment Pregabalin (Lyrica) 150 MG CAPSULE 1 CAP PO DAILY NERVE PAIN (Reported) Ramelteon (Rozerem) 8 MG TABLET 8 MG PO ONCE PRN SLEEP Tiotropium Lawtell (Spiriva) 18 MCG CAP.W.DEV 1 CAP INH DAILY COPD (Reported) Triage Note: 61 Y/O FEMALE FROM HOME VIA AMBULANCE WITH C/O PAIN, SOB, ANXIETY, AND WEAKNESS Triage Nurses Notes Reviewed? 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 Patient was discharged home. She states since being home she's had generalized weakness poor appetite and generalized malaise. She states that she feels as though she' s having panic attacks at home. She denies any chest pain. The patient has chronic baseline shortness of breath was discharged home on oxygen. No fever no chills no nausea vomiting diarrhea no urinary urgency frequency dysuria. The patient states she feels like she needs help at home or possibly rehabilitation. (Rodrigue Cruz) Past History Travel History Traveled to [place] past 21 day No Medical History Any Pertinent Medical History? 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 FH: breast cancer FATHER (smoker). , Age 54; Cause: Throat cancer. Hx Contributory? No (Rodrigue Cruz) Review of Systems Review of Systems Constitutional: Reports: see HPI. Comments Review of systems: See HPI, All other systems negative. Constitutional, no chills no fever, malaise HEENT: no sore throat no congestion, no ear pain Cardiovascular: No chest pain , no palpitation Skin: no rashes, no change in skin Respiratory: No dyspnea no cough no sputum no hemoptysis GI: No nausea no vomiting, no diarrhea, no bloating/constipation : No dysuria No hematuria, no frequency Muscle skeletal: No joint pain, no back pain, no neck pain, Neurologic: , no headache Psych: No stress Heme/endocrine: No bruising Immunology: No lymphadenopathy (Rodrigue Cruz) Physical Exam Physical Exam General Appearance: well developed/nourished, no apparent distress, alert Respiratory: normal breath sounds, chest non-tender, no respiratory distress Comments: Well-developed well-nourished person in no acute distress HEENT: Normal EENT exam; PERRL, EOMI, HEAD is atraumatic. moist mucous membranes. Neck: Supple, normal range of motion Back: Full range of motion Cardiovascular: Regular rate and rhythms no murmur Respiratory: No respiratory distress. Patient speaking in full complete sentences. Breath sounds clear to auscultation bilaterally: NO W/R/R Abdomen: Soft, nontender nondistended, no appreciable organomegaly. Normal bowel sounds. No rebound/guarding, Extremity: No edema, full range of motion of extremities Neuro: Alert oriented x3, motor sensory normal, cranial nerves II through XII grossly intact. There were no obvious focal neurologic abnormalities. Skin: No appreciable rash on exposed skin, skin is warm and dry. Psych: Mood and affect is normal, memory and judgment is normal. Core Measures ACS in differential dx? Yes CVA/TIA Diagnosis No Sepsis Present: No Sepsis Focused Exam Completed? No (Zach ARAUJO,Rodrigue) Progress Differential Diagnosis: asthma, AMI, bronchitis, CHF, COPD, pneumonia, unstable angina, INFLUENZA, UTIA, ELECTROLYTE ABNORAMITY DEHYDRATION Plan of Care: Orders Procedure Date/time Status Regular Diet 07/11 B Active CBC WITHOUT DIFFERENTIAL 07/11 0600 Active BASIC ELECTROLYTES PLUS BUN&CR 07/11 0600 Active TROPONIN LEVEL 07/11 0500 Active EKG 07/11 0500 Active Consistent Carbohydrate 3 07/10 D Complete TROPONIN LEVEL 07/10 2244 Active EKG 07/10 2244 Active Transfer patient to 07/10 2240 Active Vital Signs 07/10 222 Active Teach/Educate 07/10 2228 Active Pain Treatment and Response 07/10 2228 Active Nutritional Intake, Monitor 07/10 2228 Active Isolation 07/10 2228 Active Intake & Output 07/10 2228 Active Patient Care Conference 07/10 2228 Active Activity/Ambulation 07/10 2228 Active CULTURE,URINE 07/10 2117 Active PT Evaluate & Treat 07/10 2109 Active Pathway - chart 07/10 2109 Active House Staff 07/10 2109 Active Patient Data 07/10 2109 Active CASE MANAGEMENT CONSULT 07/10 2109 Active Code Status 07/10 2109 Active TYPE & SCREEN (NOT X-MATCH) 07/[address] in observation 07/10 2046 Active Misc Message 07/10 2038 Active ED Holding Orders 07/10 2038 Active Code Status 07/10 2038 Complete Patient Data 07/10 2016 Active FingerStick- Glucose 07/10 1741 Active Add-on Test (ER Only) 07/10 1641 Active EKG 07/10 1600 Active RAPID VIRAL INFLUENZA A 07/10 1456 Complete URINALYSIS 07/10 1456 Complete EKG 07/10 1456 Active Intake & Output 07/10 1438 Active COMPREHENSIVE METABOLIC PANEL 07/10 1432 Complete CBC WITHOUT DIFFERENTIAL 07/10 1432 Complete TROPONIN LEVEL 07/10 1430 Complete B-TYPE NATRIURETIC PEP (BNP) 07/10 1430 Complete TRC EVALUATION (GEN) 07/10 UNK Active Lab Add-on Test 07/10 UNK Active VTE Mechanical Prophylaxis 07/10 UNK Active Vital Signs 07/10 UNK Complete Telemetry/[employer] Supervisor 07/10 UNK Active Hemoccult 07/10 UNK Active FingerStick- Glucose 07/10 UNK Active Current Medications Sig/Suleman Start time Last Medication Dose Stop Time Status Admin Insulin Detemir 12 UNITS BID 07/11 1000 AC (Levemir) Polycarbophil 1,250 MG DAILY 07/11 1000 AC (FiberCon) Pregabalin 150 MG DAILY 07/11 1000 AC (Lyrica) Oxycodone HCl 40 MG Q12 07/10 2330 AC (OxyCONTIN) Nitroglycerin 0.5 GM Q6 PRN 07/10 230 AC (Nitro-Bid) Albuterol Sulfate 3 ML Q6 PRN 07/10 2214 AC (Proventil) Buspirone HCl 5 MG BID 07/10 2199 AC (Buspar) Citalopram 20 MG DAILY 07/10 2199 AC Hydrobromide (Celexa) Cyanocobalamin 1,000 MCG DAILY 07/10 2199 AC (Vitamin B12) Docusate Sodium 100 MG BID 07/10 2199 AC (Colace) Furosemide 40 MG DAILY 07/10 2199 AC (Lasix) Omeprazole 40 MG BID 07/10 2199 AC (Prilosec) Acetaminophen 650 MG Q6P PRN 07/10 2114 AC (Tylenol) Albuterol Sulfate 3 ML BID PRN 07/10 2114 AC (Proventil) Alprazolam 0.25 MG BID PRN 07/10 2114 AC (Xanax) 07/17 2113 Insulin Aspart 0 TIDAC 07/10 2114 AC (NovoLOG) Lidocaine 1 PAT DAILY@1700 PRN 07/10 2114 AC (Lidoderm) Melatonin 5 MG AT BEDTIME PRN 07/10 2114 AC (Melatonin) Oxycodone HCl 10 MG Q6P PRN 07/10 2114 AC 07/10 (Roxicodone) 2300 Ramelteon 8 MG ONCE PRN 07/10 2114 AC (Rozerem) Tiotropium Lawtell 1 PUF DAILY 07/10 2114 AC (Spiriva) Laboratory Tests 07/10/17 2337: Troponin I Pending 07/10/17 1701: Urine Color YEL, Urine Clarity HAZY H, Urine pH 6.0, Ur Specific [place] 1.020, Urine Protein 100 H, Urine Ketones NEG, Urine Nitrite NEG, Urine Bilirubin NEG, Urine Urobilinogen 0.2, Ur Leukocyte Esterase MOD H, Ur Microscopic SEDIMENT EXAMINED, Urine RBC RARE, Urine WBC 25-50 H, Ur Epithelial Cells FEW, Urine Bacteria MOD H, Hyaline Casts RARE H, Urine Mucus RARE, Micro UA Comment BUDDING YEAST H, Urine Hemoglobin TRACE-INTACT, Urine Glucose NEG 07/10/17 1430: Anion Gap 13, Estimated GFR 19 L, BUN/Creatinine Ratio 9.2, Glucose 72, Calcium 9.6, Total Bilirubin 0.3, AST 29, ALT 45, Alkaline Phosphatase 174 H, Troponin I 0.14 *H, Bnf-D-Udhbztkkuhq Pept 8350 H, Total Protein 7.3, Albumin 3.2 L, Globulin 4.1, Albumin/Globulin Ratio 0.8 L, CBC w Diff NO MAN DIFF REQ, RBC 2.93 L, MCV 92.0, MCH 30.1, RDW 17.7 H, MPV 5.9 L, Gran % 82.6 H, Lymphocytes % 8.3 L, Monocytes % 5.6, Eosinophils % 2.9, Basophils % 0.6, Absolute Granulocytes 8.4 H, Absolute Lymphocytes 0.8 L, Absolute Monocytes 0.6, Absolute Eosinophils 0.3, Absolute Basophils 0.1, PUBS MCHC 32.7 L Microbiology 07/108 URINE ROUT: Urine Culture - COLB 07/10 1510 NASOPHARYN: Influenza Virus A & B Rapid Smear - COMP LABS ORDERED, CXR FLU SWAB SENT. PT RESTING IN NAD ON MY EVALUATION. CASE D/W CASE MANAGMENT AND DR GRECO Discussed with the patient and her son her CAT scan and x-ray findings and lab work patient's creatinine is at her baseline as is her H&H. Dr. Hays in Department to evaluate patient and agrees with plan for observation for rehabilitation placement. Diagnostic Imaging: Viewed by Me: Radiology Read. Discussed w/RAD: Radiology Read. Radiology Impression: PATIENT: MEKHI VICENTE PRESENT AGE: 61 PATIENT ACCOUNT NO: [id number] : 53 LOCATION: [facility] ORDERING PHYSICIAN: Rodrigue ARAUJO SERVICE DATE: 07/10/174006 EXAM TYPE: RAD - XRY- CHEST XRAY, TWO VIEWS EXAMINATION: CHEST 2 VIEWS CLINICAL INFORMATION: Weakness, shortness of breath. COMPARISON: 07/01/2017. TECHNIQUE: PA and lateral views of the chest were obtained. FINDINGS: The cardiac silhouette is stable. There is a moderate to large right pleural effusion, increased from prior exam. There is moderate interstitial prominence present throughout both lungs. There is associated airspace disease within the right lung. The left lung is clear. The osseous structures are stable. IMPRESSION: Moderate to large right pleural effusion, increased in size from prior exam. There is associated basilar airspace disease. There is moderate vascular congestion. DICTATED BY: Messi Azar MD DATE/TIME DICTATED:07/10/171621 RENEWALS SPECIALIST:FARZANA DATE/TIME TRANSCRIBED:07/10/171621 CONFIDENTIAL, DO NOT COPY WITHOUT APPROPRIATE AUTHORIZATION. <Electronically signed in Other Vendor System> SIGNED BY: Messi Azar MD 07/10/17 7078, PATIENT: MEKHI VICENTE PRESENT AGE: 61 PATIENT ACCOUNT NO: [id number] : 53 LOCATION: [facility] ORDERING PHYSICIAN: Rodrigue ARAUJO SERVICE DATE: 07/10/17952 EXAM TYPE: CAT - CT CHEST WO IV CONTRAST EXAMINATION: CT CHEST WITHOUT CONTRAST CLINICAL INFORMATION: Worsening pleural effusion. Concern for empyema. COMPARISON: Same day chest radiograph. Chest CT from 06/29/2017. TECHNIQUE: Contiguous axial thin section helical images of the chest were performed without contrast. The data set was reformatted in the coronal and sagittal planes and reviewed on an independent workstation. Please note that evaluation is significantly limited due to the lack of IV contrast. DLP: 892 mGy-cm. FINDINGS: The heart is of normal size. There is no pericardial effusion. There are scattered nonpathologically enlarged mediastinal lymph nodes. There is no axillary lymphadenopathy. There are no chest wall masses. Review of lung windows demonstrates a moderate right pleural effusion. The lack of IV contrast significantly limits evaluation for an empyema. There is a small focus of pleural gas posteriorly, decreased from prior exam. There is interstitial septal thickening within the right lower lobe along with bronchial wall thickening and groundglass opacification. Images of the upper abdomen demonstrate that the liver is of normal size and attenuation without focal lesions. Normal adrenal glands are identified. The patient is status post cholecystectomy. Surgical clips are identified. Bone windows: Neither sclerotic nor lytic bone lesions are identified. IMPRESSION: Moderate right pleural effusion. Evaluation for an empyema is significantly limited due to the lack of IV contrast. Small focus of pleural gas within the right hemithorax, decreased from prior exam following chest tube removal. DICTATED BY: Messi Azar MD DATE/TIME DICTATED:07/10/171854 RENEWALS SPECIALIST:FARZANA DATE/TIME TRANSCRIBED:07/10/171854 CONFIDENTIAL, DO NOT COPY WITHOUT APPROPRIATE AUTHORIZATION. <Electronically signed in Other Vendor System> SIGNED BY: Messi Azar MD 07/10/171913 Initial ED EKG: normal intervals, normal p-waves, normal QRS complex, normal sinus rhythm Prior EKG: unchanged (Rodrigue Crzu) Departure Departure Time of Disposition: 1953 Disposition: STILL A PATIENT Condition: Stable Clinical Impression Primary Impression: Pleural effusion Secondary Impressions: CKD (chronic kidney disease), Gait instability Referrals: Wallace Hays MD (PCP/Family) Departure Forms: Customer Survey General Discharge Information Observation Note Spoke With: Wallace Hays MD Physician Advisor Notified: STERLING RODAS,[place] [address] Patient In: Non-ED OBS Care Area Rationale for Observation: My rational for observation is as follows PT UNABLE TO CARE FOR SELF AT HOME, GAIT NOT AT BASELINE, PREMATURE DISCHARGE WOULD BE MEDICALLY HARMFUL, TREND LABS , PT AND CASE MANAGEMENT CONSULT, PT WILL REQUIRE REHAB PLACEMENT (Rodrigue Cruz) PA/PTA Co-Sign Statement Statement: ED Attending supervision documentation- [x] I saw and evaluated the patient. I have also reviewed all the pertinent lab results and diagnostic results. I agree with the findings and the plan of care as documented in the PA's/PTA's documentation. 07/10/16, 20:50... pt resting comfortably, benign exam... placed in obs for further evaluation. [] I have reviewed the ED Record and agree with the PA's/PTA's documentation. [] Additions or exceptions (if any) to the PAs/PTA's note and plan are summarized below: [] (Phillip RODAS,Neo Martines) Critical Care Note Critical Care Note Critical Care Time: non-applicable (Rodrigue Cruz) Critical Care Time: non-applicable (Rodrigue Cruz)
--- NOTE | 2017-07-10 16:37 | RADIOLOGY REPORT ---
EXAMINATION: CHEST 2 VIEWS CLINICAL INFORMATION: Weakness, shortness of breath. COMPARISON: 07/01/2017. TECHNIQUE: PA and lateral views of the chest were obtained. FINDINGS: The cardiac silhouette is stable. There is a moderate to large right pleural effusion, increased from prior exam. There is moderate interstitial prominence present throughout both lungs. There is associated airspace disease within the right lung. The left lung is clear. The osseous structures are stable. IMPRESSION: Moderate to large right pleural effusion, increased in size from prior exam. There is associated basilar airspace disease. There is moderate vascular congestion.
--- NOTE | 2017-07-10 18:38 | PN- Att Addend ---
Attending Addendum Attending Brief Note 61 year old female was just in the hospital ,home the , week falling seen by nurse today and thought would benefit fron short term rehabilitation, using oxygen,here in nacute distress "in Pain" does not have pain medications, her CXR showed increased pleural effussion the other tests are stable or a little better ,will get a CT of the chest, depending on results see what else she needs done if not arrange for short term rehab, reassess pain management too. Laboratory Tests 07/10/17 1701: Urine Color YEL, Urine Clarity HAZY H, Urine pH 6.0, Ur Specific [place] 1.020, Urine Protein 100 H, Urine Ketones NEG, Urine Nitrite NEG, Urine Bilirubin NEG, Urine Urobilinogen 0.2, Ur Leukocyte Esterase MOD H, Ur Microscopic SEDIMENT EXAMINED, Urine RBC RARE, Urine WBC 25-50 H, Ur Epithelial Cells FEW, Urine Bacteria MOD H, Hyaline Casts RARE H, Urine Mucus RARE, Micro UA Comment BUDDING YEAST H, Urine Hemoglobin TRACE-INTACT, Urine Glucose NEG 07/10/17 1430: Anion Gap 13, Estimated GFR 19 L, BUN/Creatinine Ratio 9.2, Glucose 72, Calcium 9.6, Total Bilirubin 0.3, AST 29, ALT 45, Alkaline Phosphatase 174 H, Pro-B- Natriuretic Pept 8350 H, Total Protein 7.3, Albumin 3.2 L, Globulin 4.1, Albumin/Globulin Ratio 0.8 L, CBC w Diff NO MAN DIFF REQ, RBC 2.93 L, MCV 92.0 , MCH 30.1, RDW 17.7 H, MPV 5.9 L, Gran % 82.6 H, Lymphocytes % 8.3 L, Monocytes % 5.6, Eosinophils % 2.9, Basophils % 0.6, Absolute Granulocytes 8.4 H, Absolute Lymphocytes 0.8 L, Absolute Monocytes 0.6, Absolute Eosinophils 0.3 , Absolute Basophils 0.1, PUBS MCHC 32.7 L Microbiology 07/10 1510 NASOPHARYN: Influenza Virus A & B Rapid Smear - COMP
--- NOTE | 2017-07-10 19:14 | CT SCAN REPORT ---
EXAMINATION: CT CHEST WITHOUT CONTRAST CLINICAL INFORMATION: Worsening pleural effusion. Concern for empyema. COMPARISON: Same day chest radiograph. Chest CT from 06/29/2017. TECHNIQUE: Contiguous axial thin section helical images of the chest were performed without contrast. The data set was reformatted in the coronal and sagittal planes and reviewed on an independent workstation. Please note that evaluation is significantly limited due to the lack of IV contrast. DLP: 892 mGy-cm. FINDINGS: The heart is of normal size. There is no pericardial effusion. There are scattered nonpathologically enlarged mediastinal lymph nodes. There is no axillary lymphadenopathy. There are no chest wall masses. Review of lung windows demonstrates a moderate right pleural effusion. The lack of IV contrast significantly limits evaluation for an empyema. There is a small focus of pleural gas posteriorly, decreased from prior exam. There is interstitial septal thickening within the right lower lobe along with bronchial wall thickening and groundglass opacification. Images of the upper abdomen demonstrate that the liver is of normal size and attenuation without focal lesions. Normal adrenal glands are identified. The patient is status post cholecystectomy. Surgical clips are identified. Bone windows: Neither sclerotic nor lytic bone lesions are identified. IMPRESSION: Moderate right pleural effusion. Evaluation for an empyema is significantly limited due to the lack of IV contrast. Small focus of pleural gas within the right hemithorax, decreased from prior exam following chest tube removal.
--- NOTE | 2017-07-10 21:28 | History & Physical ---
See Addendum Topehr Ji 07/10/17 2103: General Information and HPI MD Statement: I have seen and personally examined MEKHI VICENTE and documented this H&P. The patient is a 61 year old F who presented with a patient stated chief complaint of mechanical fall, generalized weakness and anxiety attacks. []. Source of Information: patient, family, old records Exam Limitations: no limitations History of Present Illness: 61 YO F current smoker with PMH of COPD on 2L home O2, type 2 diabetes with neuropathy, left leg below-knee amputation status post prosthesis, left leg DVT status post IVC filter placement, CKD, peripheral vascular disease, 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 Patient was recently discharged from [facility] on 07/07/2017. On that admission patient was treated for acute hypoxic respiratory failure secondary to community acquired pneumonia and also having empyema and demand ischemia on telemetry floor. On the same admission patient was growing MRSA in urine and treated for that with vancomycin for 3 days. For empyema she was treated with decortication and 2 chest tube placement was done. Her son reported that after the discharge she went home and while shifting her from car to her home she fell down and her left leg prosthesis was fell down. Patient had become short of breath and anxious. Her son increased her oxygen from 2 L to 4 L and after some time patient got better and came back to her baseline oxygen requirement 2 L. Her son also reported that patient is feeling generalized weakness since then and not came back to her baseline. He also reported that patient didn't remove her prosthesis and she lost weight. The prosthesis use on her leg and surrounding to the stump and having superficial skin breakage. Patient also reportedly she has anxiety attacks that comes and goes and that's unusual for her. Patient denied any chest pain, short of breath, palpitation, nausea, vomiting, diarrhea, loss of consciousness, headache, seizures, abdominal pain and dysuria. ED course: Vitals: Temperature 97.1, pulse 82, respiratory rate 24, BP 185/77, oxygen saturation 99% 2 dates of oxygen. Labs: WBC count 10.1, hemoglobin 8.8, hematocrit 27.0, platelet count 637, sodium 145, potassium 3.6, BUN 24, creatinine 2.6, anion gap 13, BUN/creatinine ratio 9.2, glucose 72, calcium 9.6, alkaline phosphatase 134, proBNP 8350, albumin 3.2, albumin/globulin ratio 0.8, trop 0.14 Allergies/Medications Allergies: Coded Allergies: NO KNOWN ALLERGIES (NONE 06/26/17) Home Med list Albuterol Sulfate 2.5 MG/3 ML (0.083 %) VIAL.NEB 3 ML INH BID PRN sob Alprazolam 0.25 MG TABLET 1 TAB PO BIDP PRN ANXIETY (Reported) Buspirone HCl 5 MG TABLET 5 MG PO BID anxiety Citalopram Hydrobromide (Citalopram HBr) 20 MG TABLET 1 TAB PO DAILY MENTAL HEALTH (Reported) Cyanocobalamin (Vitamin B-12) (B-12) 1,000 MCG TABLET 1 TAB PO DAILY SUPPLEMENT (Reported) Docusate Sodium (Colace) 100 MG CAPSULE 1 CAP PO BID STOOL SOFTENER (Reported ) Ergocalciferol (Vitamin D2) (Vitamin D2) 50,000 UNIT CAPSULE 1 CAP PO Q2W SUPPLEMENT (Reported) Furosemide 40 MG TABLET 40 MG PO DAILY DIURETIC (Reported) Insulin Aspart, Recombinant (Novolog Flexpen) 100 UNIT/ML INSULN.PEN DM ( Reported) Insulin Detemir (Levemir) 100 UNIT/ML VIAL 12 UNITS SC BID diabetes Lidocaine (Lidoderm) 5 % ADH..PATCH 1 PAT EXT DAILY@1700 PRN pain Linagliptin (Tradjenta) 5 MG TABLET 1 TAB PO DAILY DM (Reported) Melatonin 5 MG TABLET 5 MG PO AT BEDTIME PRN sleep Nitroglycerin (Nitro-Bid) 2 % OINT...G. 0.5 GM TOP Q6P PRN CHEST PAIN Omeprazole 40 MG CAPSULE.DR 1 CAP PO DAILY gi bleed Oxycodone HCl (Oxycontin) 80 MG TAB.ER.12H 1 TAB PO TID PRN PAIN (Reported) Polycarbophil (Fiber) 625 MG TABLET 1,250 MG PO DAILY supplment Pregabalin (Lyrica) 150 MG CAPSULE 1 CAP PO DAILY NERVE PAIN (Reported) Ramelteon (Rozerem) 8 MG TABLET 8 MG PO ONCE PRN SLEEP Tiotropium [place] (Spiriva) 18 MCG CAP.W.DEV 1 CAP INH DAILY COPD (Reported) Past History Travel History Traveled to [place] past 21 day No Medical History Neurological: peripheral neuropathy EENT: NONE Cardiovascular: hypertension, hyperlipidemia, PVD Respiratory: COPD, S/P RIGHT LUNG DECORTICAT Gastrointestinal: NONE Hepatic: NONE Renal: chronic kidney disease Musculoskeletal: Left BKA Amput 1st & 3rd toes on right Psychiatric: anxiety, depression Endocrine: diabetes, obesity Blood Disorders: DVT (left leg) Cancer(s): UTERINE CANCER- [facility]BSO at [facility] & RT/[employer]/Reproductive: NONE History of MRSA: Yes History of VRE: No History of CDIFF: No Influenza Vaccine: 06/14/17 Surgical History Surgical History: cholecystectomy, hysterectomy (TAHBSO), left BKA rt great, 3rd toes amput status post IVC filter status post varicose vein surgery Past Family/Social History Family History Relations & Conditions if any MOTHER, , Age 61; Cause: Breast CA. FH: breast cancer FATHER (smoker). , Age 54; Cause: Throat cancer. Psychosocial History Who Do You Live With? spouse (dtr), child Services at Home: Nursing Primary Language: French ETOH Use: denies use Illicit Drug Use: denies illicit drug use Living Will? no Power of Hand Finisher/HCP? no Functional Ability ADLs Independent: dressing, eating. Needs Assist: toileting, bathing. Ambulation: cane, walker (rolling) IADLs Independent: telephone. Needs Assist: shopping, housework, finances, food prep, transportation, medication admin. Review of Systems Review of Systems Constitutional: Reports: weakness. EENTM: Reports: no symptoms. Cardiovascular: Reports: see HPI. Respiratory: Reports: no symptoms. GI: Reports: no symptoms. Genitourinary: Reports: no symptoms. Musculoskeletal: Reports: back pain. Neurological/Psychological: Reports: anxiety. Exam & Diagnostic Data Last 24 Hrs of Vital Signs/I&O Vital Signs Date Time Temp Pulse Resp B/P B/P Pulse O2 O2 Flow FiO2 Mean Ox Delivery Rate 07/105 97.6 73 18 147/68 98 Room Air 07/10 1627 97.6 63 18 142/65 94 Nasal 2.0L Cannula 07/10 1611 Nasal 2.0L Cannula 07/10 1456 96.9 75 24 154/69 2 Nasal 2.0L Cannula 07/10 1449 Nasal 2.0L Cannula 07/10 1447 99 Nasal 2.0L Cannula 07/10 1342 97.1 82 24 185/77 99 Nasal 2.0L Cannula Intake & Output 07/10 1600 07/10 0800 07/10 0000 Intake Total 0 Output Total Balance 0 Intake, Oral 0 Patient 253 lb Weight Weight Reported by Patient Measurement Method Physical Exam General Appearance Alert, Oriented X3, Cooperative Skin Temp/Moisture Exam: Warm/Dry Sepsis Skin Exam (color): Normal for Ethnicity HEENT Atraumatic, PERRLA, EOMI Neck Supple Cardiovascular Normal S1, Normal S2 Lungs Clear to Auscultation, Decreased breath sounds on right side compare left chest pain., bernie on right back of chest from recent surgery for decortication. Abdomen Soft, No Tenderness Neurological Normal Speech, Normal Tone, Sensation Intact Extremities Right leg swelling with chronic venous changes., Left leg amputation with stump Last 24 Hrs of Labs/Drew: Laboratory Tests 07/10/17 1701: Urine Color YEL, Urine Clarity HAZY H, Urine pH 6.0, Ur Specific [place] 1.020, Urine Protein 100 H, Urine Ketones NEG, Urine Nitrite NEG, Urine Bilirubin NEG, Urine Urobilinogen 0.2, Ur Leukocyte Esterase MOD H, Ur Microscopic SEDIMENT EXAMINED, Urine RBC RARE, Urine WBC 25-50 H, Ur Epithelial Cells FEW, Urine Bacteria MOD H, Hyaline Casts RARE H, Urine Mucus RARE, Micro UA Comment BUDDING YEAST H, Urine Hemoglobin TRACE-INTACT, Urine Glucose NEG 07/10/17 1430: Anion Gap 13, Estimated GFR 19 L, BUN/Creatinine Ratio 9.2, Glucose 72, Calcium 9.6, Total Bilirubin 0.3, AST 29, ALT 45, Alkaline Phosphatase 174 H, Pro-B- Natriuretic Pept 8350 H, Total Protein 7.3, Albumin 3.2 L, Globulin 4.1, Albumin/Globulin Ratio 0.8 L, CBC w Diff NO MAN DIFF REQ, RBC 2.93 L, MCV 92.0 , MCH 30.1, RDW 17.7 H, MPV 5.9 L, Gran % 82.6 H, Lymphocytes % 8.3 L, Monocytes % 5.6, Eosinophils % 2.9, Basophils % 0.6, Absolute Granulocytes 8.4 H, Absolute Lymphocytes 0.8 L, Absolute Monocytes 0.6, Absolute Eosinophils 0.3 , Absolute Basophils 0.1, PUBS MCHC 32.7 L Microbiology 07/10 1510 NASOPHARYN: Influenza Virus A & B Rapid Smear - COMP Assessment/Plan Assessment: 61 YO F current smoker with PMH of COPD on 2L home O2, type 2 diabetes with neuropathy, left leg below-knee amputation status post prosthesis, left leg DVT status post IVC filter placement, CKD, peripheral vascular disease, 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 We will keep the patient under observation and order some tests to rule out any infection including pneumonia or UTI. Patient needs short-term rehabilitation placement. Generalized weakness with history of recent mechanical fall: -Patient needs PT evaluation. -Patient needs short-term rehabilitation placement. -We will check orthostatic vitals -We will check urine cultures as patient was growing MRSA last time in urine and was treated vancomycin for 3 days. Demand ischemia: -patient's troponin was 0.14 and possibly due to demand ischemia as last time she was admited with demand ischemia. She didn't complain of chest pain and no ischemic change in EKG. -We will trend her tropnin and EKGs to rule out ischemic cardiac injury. Considering patient's history of peripheral vascular disease she is at high risk for cardiac event. -cardiac consult. Right-sided pleural effusion: -Patient having moderate right pleural effusion. -Patient history of empyema recently that was removed and decortication was done the chest tube placement last admission. -Pulmonology consult History of COPD: -We will continue supplemental oxygen to maintain oxygen saturation above 90%. -TRC nebulization as needed. History of diabetes: -Accu-Cheks -We will continue insulin NovoLog according to sliding scale. -We will continue Levemir 12 units twice a day -HbA1c History of chronic leg edema: -We will continue Lasix 40 mg daily. -We'll check input and output -BEP to monitor for electrolyte. History of peripheral neuropathy: -We will continue pregabalin. History of chronic anemia: -Probably multifactorial considering patient's CKD and poor nutrition. -Recent endoscopy and colonoscopy were negative. -We will continue omeprazole 40 mg History of anxiety and depression: -We'll continue citalopram. -We will continue alprazolam 0.25 mg twice a day when necessary. -We will continue buspirone. Chronic pain management: -We will continue Lidoderm patch. -We will continue Roxicodone 10 mg every 6 when necessary DVT prophylaxis: On limited mechanical considering patient's history of anemia. CODE STATUS: Full code As Ranked By This Provider Problem List: 1. Generalized weakness 2. Fall 3. Demand ischemia Core Measures/Misc (03/08) Acute Coronary Syndrome ACS Diagnosis: No Congestive Heart Failure Congestive Heart Failure Diagnosis No Cerebrovascular Accident CVA/TIA Diagnosis: No VTE (View Protocol) VTE Risk Factors Age>40 No Mechanical VTE Prophylaxis d/t N/A MechProphylax Ordered No VTE Pharm Prophylaxis d/t NA PharmProphylax ordered Sepsis (View protocol) Sepsis Present: No Melchor Navarro 07/10/172125: Resident Review Statement Resident Statement: examined this patient, discussed with graphic design intern, agreed with graphic design intern, discussed with family, reviewed EMR data (avail), discussed with nursing , discussed with case mgmt, reviewed images, amended to note Other Findings: This is a 61-year-old woman, current smoker with a history of COPD on 2 L oxygen , diabetes type 2 with diabetic neuropathy, peripheral vascular disease, left leg DVT status post IVC filter, chronic kidney disease, neuropathy and peripheral vascular disease, status post left BKA , right foot charcoot and amputations of the right first and third toes, recently admitted to [facility] for empyema presented with generalized weakness, decreased appetite, anxiety, unsteady gait. Patient was admitted to [facility] from 06/12-07/07 for acute hypoxic respiratory failure secondary to pneumonia, empyema status post right thoracotomy with drainage of empyema and decortication of right lower lobe status post chest tube placement, status post removal, OR fluid cultures negative, received 3 weeks of antibiotics. She was also found to have elevated troponins secondary to infection. She had UTI with urine culture positive for MRSA, treated with vancomycin. She had complicated course with acute blood loss anemia, status post transfusion of 10 units of PRBC, colonoscopy showed moderate left-sided diverticula, EGD was done which showed nonbleeding esophageal erosion. She was advised to follow-up with measurement supervisor as an outpatient for [facility]. She was discharged home with visiting nurse services on continuous oxygen supplementation. However after going home she had a mechanical fall , tripped on the floor, denied hitting head, loss of consciousness, chest pain, palpitations, syncope, presyncope events. According to the son it was purely mechanical. However she felt her left knee joint prosthesis became loose since then. She denied any injury to her left knee except for superficial abrasion. Denies any discharge, pain, redness, swelling. She also reports unsteady gait which is making her difficult to ambulate and to do her activities. Reports continuous back pain which is chronic. Because of unsteady gait and mechanical fall at home she had panic attacks associated with shortness of breath, which made her to come to the emergency room. Review of systems negative except for above. She reports ongoing anxiety, short of breath, unsteady gait. Denies any chest pain, palpitations, fever, chills, cough, nausea, vomiting, abdominal pain, constipation or diarrhea. Reports generalized weakness and low appetite. Vitals afebrile, heart rate 73, respiratory rate 18, blood pressure 140/60, saturating at 98 on 2 L. On examination-HEENT normal limits, no JVD, S1-S2 normal no murmur, bilateral decreased breath sounds, right thoracotomy site healing well no drainage no pus no swelling or redness. Abdomen distended, soft, nontender. Right lower extremity +2 pitting edema, erythema with lesions no drainage. Left prosthesis intact. Superficial pressure injury, no redness no swelling no drainage. No focal neurologic deficit Pertinent labs WBC 10, hemoglobin 8.8, hematocrit 27, platelets 637 Sodium 140, potassium 3.6, BUN 24, creatinine baseline 2.6 Alkaline phosphatase 174 baseline ProBNP elevated 8350 Flu was negative Urine analysis-positive nitrate, esterase, packed WBC, bacteria cxr Moderate to large right pleural effusion, increased in size from prior exam. There is associated basilar airspace disease. There is moderate vascular congestion. chest ct Moderate right pleural effusion. Evaluation for an empyema is significantly limited due to the lack of IV contrast. Small focus of pleural gas within the right hemithorax, decreased from prior exam following chest tube removal. --------- 1. Unsteady gait/ generalized weakness Patient was hospitalized for 26 days for hypoxic respiratory failure and empyema /acute blood loss anemia. She was discharged on 07/07/2017 with continuous oxygen supplementation 2 liters. However after going home she felt weak and had mechanical fall from unsteady gait. She had periods of panic attacks from shortness of breath. As she couldn't take care of herself she presented to ER for further evaluation. -We'll place in observation in general medicine floor -Physical therapy consult in the a.m. -Patient may need short-term rehabilitation -Generalized weakness most possibly from deconditioning from prolonged hospitalization -Will provide supportive management -Pain management -Medication for anxiety Moderate pleural effusion She was admitted to the [facility] on 06/12 for hypoxic respiratory failure from empyema requiring decortication and thoracotomy with chest tube placement and removal. She was treated with 3 week course of antibiotics IV Unasyn. OR Cultures were negative. Blood cultures were positive for Haemophilus. AFB was negative. Patient presented with ongoing shortness of breath to the emergency room after discharge. Chest x-ray and CAT scan chest was done which showed moderate amount of pleural effusion, no empyema was found. -Continue to closely monitor for any acute worsening of shortness of breath, chest pain, fever, leukocytosis -Consult mine wirer in the a.m. Type II LA Patient was found to have elevated troponin 0.14. Denied any chest pain, palpitations, nausea, vomiting, diaphoresis. No history of coronary artery disease. Most likely demand ischemia from shortness of breath and pleural effusion, chronic kidney disease. * Patient was transferred to telemetry floor for continuous telemetry monitoring * Serial troponins and EKG * Trend troponins * Cardiology consult in the a.m. * Not on aspirin because of GI bleed * Closely monitor for any chest pain Asymptomatic bacteriuria Patient denies any frequency, urgency, burning micturition. However urine analysis positive for nitrate, esterase, WBC, bacteria. She was treated for MRSA UTI with vancomycin during her last admission. -Afebrile with normal WBC count -No urinary symptoms -Follow-up urine cultures -Monitor off from antibiotics Chronic normocytic anemia Patient hemoglobin 8.8 and hematocrit 27 at the time of admission. Her prior admission was complicated with acute blood loss anemia requiring 10 units of transfusion. Underwent EGD which showed superficial nonbleeding esophageal erosion and colonoscopy was normal. She was advised to follow-up with Search Engineer as an outpatient for pill cam. -Hemoglobin remained stable 8.8 -Guaiac stools -GI consult if acute blood loss anemia -Aspirin was discontinued during last admission -Continue omeprazole 40 twice daily MECHANICAL FALL After going home she had a mechanical fall , tripped on the floor, denied hitting head, loss of consciousness, chest pain, palpitations, syncope, presyncope events. According to the son it was purely mechanical. However she felt her left knee joint prosthesis became loose since then. She denied any injury to her left knee except for superficial abrasion. Denies any discharge, pain, redness, swelling. -Monitor for any signs of infection -Monitor for fever, leukocytosis -Patient is requesting for new prosthesis. Please contact case management. Anxiety-continue home medications Xanax and BuSpar. Depression-continue home medication citalopram COPD on 2 L oxygen-continue TRC, oxygen supplementation Diastolic congestive heart failure continue 40 mg Lasix daily Neuropathy-continue home medications Lyrica 150 mg daily Constipation continue bowel regimen Continue vitamin supplements and B12 Type 2 diabetes mellitus Accu-Cheks, and Levemir 12 twice a day, insulin sliding scale. She is full code DVT prophylaxis alps, no chemical anticoagulation because of GI bleed Consistent carbohydrate diet Pain pathway Tylenol and oxycodone
[2017-07-10 22:42] VITALS: BP 148/60
--- NOTE | 2017-07-10 22:46 | Event Note ---
Event Note Event Note: Patient was admitted to general medicine floor for unsteady gait, mechanical fall. * Given her elevated proBNP and moderate pleural effusion troponin was done which was elevated 0.14. * Discussed with Dr. Hays attending physician who recommended transfer patient to telemetry floor. * Will do serial EKG and troponin. * Will place her under continuous line inspector. * Advised to consult cardiology in the a.m. * Please consult Dr. Rebollar director of collections and archives in a.m.
[2017-07-11 01:05] VITALS: BP 114/52
[2017-07-11 06:23] VITALS: BP 102/50
[2017-07-11 07:03] LABS: ABSOLUTE BASOPHIL COUNT 0.1 /CUMM (0.0-0.2); ABSOLUTE EOSINOPHIL COUNT 0.4 /CUMM (0.0-0.7); ABSOLUTE GRANULOCYTE CT 6.9 /CUMM (1.4-6.5); ABSOLUTE LYMPH COUNT 1.1 /CUMM (1.2-3.4); ABSOLUTE MONOCYTE COUNT 0.8 /CUMM (0.10-0.60); BASOPHIL % 1.2 % (0.0-2.0); EOSINOPHIL % 4.1 % (0-5); GRANULOCYTE % 74.3 % (42.2-75.2); HEMATOCRIT 23.6 % (37-47); MEAN CORPUSCULAR HGB 30.1 PG (27.0-31.0); MEAN CORPUSCULAR HGB CONC 32.7 G/DL (33.0-37.0); MEAN CORPUSCULAR VOLUME 92.1 FL (81.0-99.0); MEAN PLATELET VOLUME 6.3 FL (7.4-10.4); PLATELET COUNT 461 /CUMM (130-400); RBC DISTRIBUTION WIDTH 17.9 % (11.5-14.5); RED BLOOD CELL CT 2.57 /CUMM (4.20-5.40); WHITE BLOOD CELL COUNT 9.3 /CUMM (4.8-10.8)
--- NOTE | 2017-07-11 10:14 | PN- Housestaff ---
See Addendum Subjective Follow-up For: Right pleural effusion, weakness, anxiety Tele-Events Since Last Visit: Afib 50-70 Subjective: No overnight events. She was recently discharged, fell trying to get into her house. Had an anxiety attack as well. Feels better now, no CP. Mild SOB. She wants rehab before going home. Review of Systems Constitutional: Reports: no symptoms. EENTM: Reports: no symptoms. Cardiovascular: Reports: no symptoms. Respiratory: Reports: no symptoms. Gastrointestinal: Reports: no symptoms. Genitourinary: Reports: no symptoms. Musculoskeletal: Reports: no symptoms. Skin: Reports: no symptoms. Neurological/Psychological: Reports: no symptoms. Hematologic/Endocrine: Reports: no symptoms. Immunologic/Allergic: Reports: no symptoms. Objective Last 24 Hrs of Vital Signs/I&O Vital Signs Date Time Temp Pulse Resp B/P B/P Pulse O2 O2 Flow FiO2 Mean Ox Delivery Rate 07/11 0746 Nasal 2.0L Cannula 07/11 0623 98.4 58 22 102/50 91 Nasal 2.0L Cannula 07/11 0105 98.9 77 20 114/52 90 Nasal 2.0L Cannula 07/11 0030 Nasal 2.0L Cannula 07/10 2242 98.0 63 19 148/60 92 Nasal 2.0L Cannula 07/10 2112 95.6 63 18 147/67 95 Room Air 07/10 1915 97.6 73 18 147/68 98 Room Air 07/10 1627 97.6 63 18 142/65 94 Nasal 2.0L Cannula 07/10 1611 Nasal 2.0L Cannula 07/10 1456 96.9 75 24 154/69 2 Nasal 2.0L Cannula 07/10 1449 Nasal 2.0L Cannula 07/10 1447 99 Nasal 2.0L Cannula 07/10 1342 97.1 82 24 185/77 99 Nasal 2.0L Cannula Intake & Output 07/11 1600 07/11 0800 07/11 0000 Intake Total 300 240 Output Total 400 Balance -100 240 Intake, Oral 300 240 Output, Urine 400 Patient 253 lb Weight Physical Exam General Appearance: Alert, Oriented X3, Cooperative, No Acute Distress Cardiovascular: irregular Lungs: crackles Abdomen: Normal Bowel Sounds, Soft, No Tenderness Extremities: edema Current Medications: Current Medications Sig/Suleman Start time Last Medication Dose Route Stop Time Status Admin Acetaminophen 650 MG Q6P PRN 07/10 2114 AC PO Albuterol Sulfate 3 ML Q6 PRN 07/10 2214 AC INH Albuterol Sulfate 3 ML BID PRN 07/10 2114 AC INH Alprazolam 0.25 MG BID PRN 07/10 2114 AC PO 07/17 2113 Alprazolam 0 .STK-MED ONE 07/10 1750 DC PO Alprazolam 0.5 MG ONCE ONE 07/10 1745 DC 07/10 PO 07/10 1746 1749 Buspirone HCl 5 MG BID 07/10 2199 AC 07/11 PO 0929 Citalopram 20 MG DAILY 07/10 2199 AC 07/11 Hydrobromide PO 09 Cyanocobalamin 1,000 MCG DAILY 07/10 2199 AC 07/11 PO 0928 Docusate Sodium 100 MG BID 07/10 2199 AC 07/11 PO 0929 Furosemide 40 MG DAILY 07/10 2199 AC 07/11 PO 0929 Insulin Aspart 0 TIDAC 07/10 2114 AC 07/11 SC 0836 Insulin Detemir 12 UNITS BID 07/11 1000 AC 07/11 SC 0927 Insulin Detemir 12 UNITS ONCE ONE 07/[address] 07/10 1746 Lidocaine 1 PAT DAILY@1700 PRN 07/10 2114 AC EXT Melatonin 5 MG AT BEDTIME PRN 07/10 2114 AC PO Nitroglycerin 0.5 GM Q6 PRN 07/10 230 AC TOP Omeprazole 40 MG BID 07/10 2199 AC 07/11 PO 0928 Oxycodone HCl 40 MG Q12 07/10 2330 AC 07/11 PO 0929 Oxycodone HCl 10 MG Q6P PRN 07/10 2114 AC 07/11 PO 0443 Polycarbophil 1,250 MG DAILY 07/11 1000 AC 07/11 PO 0929 Pregabalin 150 MG DAILY 07/11 1000 AC 07/11 PO 0929 Ramelteon 8 MG ONCE PRN 07/10 2114 AC PO Tiotropium [place] 1 PUF DAILY 07/10 2114 AC 07/11 INH 0928 Last 24 Hrs of Lab/Drew Results Last 24 Hrs of Labs/Mics: Laboratory Tests 07/11/17 0632: Anion Gap 12, Estimated GFR 19 L, BUN/Creatinine Ratio 10.0, Troponin I 0.11 *H , CBC w Diff NO MAN DIFF REQ, RBC 2.57 L, MCV 92.1, MCH 30.1, RDW 17.9 H, MPV 6.3 L, Gran % 74.3, Lymphocytes % 11.5 L, Monocytes % 8.9, Eosinophils % 4.1, Basophils % 1.2, Absolute Granulocytes 6.9 H, Absolute Lymphocytes 1.1 L, Absolute Monocytes 0.8 H, Absolute Eosinophils 0.4, Absolute Basophils 0.1, PUBS MCHC 32.7 L 07/11/17 0500: Troponin I Cancelled 07/10/17 2337: Troponin I 0.12 *H 07/10/17 1701: Urine Color YEL, Urine Clarity HAZY H, Urine pH 6.0, Ur Specific [place] 1.020, Urine Protein 100 H, Urine Ketones NEG, Urine Nitrite NEG, Urine Bilirubin NEG, Urine Urobilinogen 0.2, Ur Leukocyte Esterase MOD H, Ur Microscopic SEDIMENT EXAMINED, Urine RBC RARE, Urine WBC 25-50 H, Ur Epithelial Cells FEW, Urine Bacteria MOD H, Hyaline Casts RARE H, Urine Mucus RARE, Micro UA Comment [place] H, Urine Hemoglobin TRACE-INTACT, Urine Glucose NEG 07/10/17 1430: Anion Gap 13, Estimated GFR 19 L, BUN/Creatinine Ratio 9.2, Glucose 72, Calcium 9.6, Total Bilirubin 0.3, AST 29, ALT 45, Alkaline Phosphatase 174 H, Troponin I 0.14 *H, Eyc-M-Umrlqprxbkx Pept 8350 H, Total Protein 7.3, Albumin 3.2 L, Globulin 4.1, Albumin/Globulin Ratio 0.8 L, CBC w Diff NO MAN DIFF REQ, RBC 2.93 L, MCV 92.0, MCH 30.1, RDW 17.7 H, MPV 5.9 L, Gran % 82.6 H, Lymphocytes % 8.3 L, Monocytes % 5.6, Eosinophils % 2.9, Basophils % 0.6, Absolute Granulocytes 8.4 H, Absolute Lymphocytes 0.8 L, Absolute Monocytes 0.6, Absolute Eosinophils 0.3, Absolute Basophils 0.1, PUBS MCHC 32.7 L Microbiology 07/10 170 URINE ROUT: Urine Culture - RECD 07/10 1510 NASOPHARYN: Influenza Virus A & B Rapid Smear - COMP Assessment/Plan Assessment: 61 YO F current smoker with PMH of COPD on 2L home O2, type 2 diabetes with neuropathy, left leg below-knee amputation status post prosthesis, left leg DVT status post IVC filter placement, CKD, peripheral vascular disease, 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 Problem list: 1. Physical deconditioning 2. Type II NH, demand ischemia 3. Anxiety 4. Right-sided pleural effusion #Physical deconditioning: Patient feels like she is physically deconditioned and needs rehabilitation. She may also need a new prosthesis. -Orthostatic vitals -PT evaluation -Will need short-term rehabilitation #Type II NH, demand ischemia: Patient did not have chest pain. Troponin was mildly elevated but has down trended. Likely demand ischemia. -Cardiology consult -Nitroglycerin #Right-sided pleural effusion: Seen on chest x-ray. -Pulmonology consult -Albuterol -Tiotropium #Anxiety: Patient is reporting significant anxiety and thinks that this may contribute to her falling. -Consider psych eval -Continue alprazolam #Chronic medical problems: -Continue home pregabalin, polycarbophil, oxycodone, furosemide, docusate, omeprazole, cyanocobalamin, citalopram, buspirone, lidocaine, alprazolam -Insulin sliding scale DVT prophylaxis with Alps Consistent carbohydrate 3 diet Full code Problem List: 1. Demand ischemia Pain Ratin Pain Location: none Pain Goal: Remain pain free Pain Plan: see a/p Tomorrow's Labs & Rationales: none
--- NOTE | 2017-07-11 14:00 | PN- Att Addend ---
Attending Addendum Attending Brief Note Patient sitting comfortably at the edge of the bed. Patient was transferred to telemetry because is slightly elevated she noted troponin despite patient having no chest pain Her vital signs are stable, no fever, no major changes on physical. We asked pulmonary to check the x-rays given his recommendations and was recommended to call IR cardiology to evaluate the x-rays and to decide if to put the chest tube or valve area after this is done we can start disposition plans for the patient to go to rehabilitation. 24 TOTALS 07/11 0000 07/10 0000 Intake Total 240 Output Total Balance 240 Intake, Oral 240 Patient 253 lb Weight Weight Reported by Patient Measurement Method Current Medications Sig/Suleman Start time Last Medication Dose Route Stop Time Status Admin Acetaminophen 650 MG Q6P PRN 07/10 2114 AC PO Albuterol Sulfate 3 ML Q6 PRN 07/10 2214 AC INH Albuterol Sulfate 3 ML BID PRN 07/10 2114 AC INH Alprazolam 0.25 MG BID PRN 07/10 2114 AC PO 07/17 2113 Alprazolam 0 .STK-MED ONE 07/10 1750 DC PO Alprazolam 0.5 MG ONCE ONE 07/10 1745 DC 07/10 PO 07/10 1746 1749 Buspirone HCl 5 MG BID 07/10 2199 AC 07/11 PO 0929 Citalopram 20 MG DAILY 07/10 2199 AC 07/11 Hydrobromide PO 09 Cyanocobalamin 1,000 MCG DAILY 07/10 2199 AC 07/11 PO 0928 Docusate Sodium 100 MG BID 07/10 2199 AC 07/11 PO 0929 Furosemide 40 MG DAILY 07/10 2199 AC 07/11 PO 0929 Insulin Aspart 0 TIDAC 07/10 2114 AC 07/11 SC 1213 Insulin Detemir 12 UNITS BID 07/11 1000 AC 07/11 SC 0927 Insulin Detemir 12 UNITS ONCE ONE 07/10 1745 DC SC 07/10 1746 Lidocaine 1 PAT DAILY@1700 PRN 07/10 2114 AC EXT Melatonin 5 MG AT BEDTIME PRN 07/10 2114 AC PO Nitroglycerin 0.5 GM Q6 PRN 07/10 2300 AC TOP Omeprazole 40 MG BID 07/10 2199 AC 07/11 PO 0928 Oxycodone HCl 40 MG Q12 07/10 2330 AC 07/11 PO 0929 Oxycodone HCl 10 MG Q6P PRN 07/10 2114 07/11 PO 0443 Polycarbophil 1,250 MG DAILY 07/11 999 AC 07/11 PO 0929 Pregabalin 150 MG DAILY 07/11 999 AC 07/11 PO 0929 Ramelteon 8 MG ONCE PRN 07/10 2114 PO Tiotropium [place] 1 PUF DAILY 07/10 2114 07/11 INH 0928 Laboratory Tests 07/11/17 1310: PT Pending, INR Pending 07/11/17 0632: Anion Gap 12, Estimated GFR 19 L, BUN/Creatinine Ratio 10.0, Troponin I 0.11 *H , CBC w Diff NO MAN DIFF REQ, RBC 2.57 L, MCV 92.1, MCH 30.1, RDW 17.9 H, MPV 6.3 L, Gran % 74.3, Lymphocytes % 11.5 L, Monocytes % 8.9, Eosinophils % 4.1, Basophils % 1.2, Absolute Granulocytes 6.9 H, Absolute Lymphocytes 1.1 L, Absolute Monocytes 0.8 H, Absolute Eosinophils 0.4, Absolute Basophils 0.1, PUBS MCHC 32.7 L 07/11/17 0500: Troponin I Cancelled 07/10/17 2337: Troponin I 0.12 *H 07/10/17 1701: Urine Color YEL, Urine Clarity HAZY H, Urine pH 6.0, Ur Specific [place] 1.020, Urine Protein 100 H, Urine Ketones NEG, Urine Nitrite NEG, Urine Bilirubin NEG, Urine Urobilinogen 0.2, Ur Leukocyte Esterase MOD H, Ur Microscopic SEDIMENT EXAMINED, Urine RBC RARE, Urine WBC 25-50 H, Ur Epithelial Cells FEW, Urine Bacteria MOD H, Hyaline Casts RARE H, Urine Mucus RARE, Micro UA Comment [place] H, Urine Hemoglobin TRACE-INTACT, Urine Glucose NEG 07/10/17 1430: Anion Gap 13, Estimated GFR 19 L, BUN/Creatinine Ratio 9.2, Glucose 72, Calcium 9.6, Total Bilirubin 0.3, AST 29, ALT 45, Alkaline Phosphatase 174 H, Troponin I 0.14 *H, Mqf-Q-Eitlcoqkria Pept 8350 H, Total Protein 7.3, Albumin 3.2 L, Globulin 4.1, Albumin/Globulin Ratio 0.8 L, CBC w Diff NO MAN DIFF REQ, RBC 2.93 L, MCV 92.0, MCH 30.1, RDW 17.7 H, MPV 5.9 L, Gran % 82.6 H, Lymphocytes % 8.3 L, Monocytes % 5.6, Eosinophils % 2.9, Basophils % 0.6, Absolute Granulocytes 8.4 H, Absolute Lymphocytes 0.8 L, Absolute Monocytes 0.6, Absolute Eosinophils 0.3, Absolute Basophils 0.1, PUBS MCHC 32.7 L Microbiology 07/10 1510 NASOPHARYN: Influenza Virus A & B Rapid Smear - COMP Vital Signs Date Time Temp Pulse Resp B/P B/P Pulse O2 O2 Flow FiO2 Mean Ox Delivery Rate 07/11 1018 Nasal 2.0L Cannula 07/11 0746 Nasal 2.0L Cannula 07/11 0623 98.4 58 22 102/50 91 Nasal 2.0L Cannula 07/11 0105 98.9 77 20 114/52 90 Nasal 2.0L Cannula 07/11 0030 Nasal 2.0L Cannula 07/10 2242 98.0 63 19 148/60 92 Nasal 2.0L Cannula 07/10 2112 95.6 63 18 147/67 95 Room Air 07/10 1915 97.6 73 18 147/68 98 Room Air 07/10 1627 97.6 63 18 142/65 94 Nasal 2.0L Cannula 07/10 1611 Nasal 2.0L Cannula 07/10 1456 96.9 75 24 154/69 2 Nasal 2.0L Cannula 07/10 1449 Nasal 2.0L Cannula 07/10 1447 99 Nasal 2.0L Cannula
[2017-07-11 14:17] LABS: PT 13.1 SEC (9.4-12.5)
[2017-07-11 18:01] VITALS: BP 130/58
[2017-07-11 23:00] VITALS: BP 112/56
[2017-07-12 06:43] VITALS: BP 132/52
--- NOTE | 2017-07-12 15:34 | PN- Att Addend ---
Attending Addendum Attending Brief Note Patient sitting in the chair, in no respiratory distress. Requesting pain medications but she does not look in a lot of pain radiology decided was no need to do a thoracentesis or any other kind of procedure very recent was start disposition plans looking for short-term rehabilitation unit as soon as insurance issues are resolved with transfer 24 TOTALS 07/12 0000 07/11 0000 Intake Total 1160 240 Output Total 1150 Balance 10 240 Intake, IV 20 Intake, Oral 1140 240 Number 1 Bowel Movements Output, Urine 1150 Patient 253 lb Weight Weight Reported by Patient Measurement Method Current Medications Sig/Suleman Start time Last Medication Dose Route Stop Time Status Admin Acetaminophen 650 MG Q6P PRN 07/10 2114 AC 07/12 PO 1357 Albuterol Sulfate 3 ML Q4-PRN PRN 07/11 2144 AC INH Albuterol Sulfate 3 ML Q6 PRN 07/10 2214 AC INH Albuterol Sulfate 3 ML BID PRN 07/10 2114 AC INH Alprazolam 0.25 MG BID PRN 07/10 2114 AC 07/11 PO 07/17 2113 2159 Buspirone HCl 5 MG BID 07/10 2199 AC 07/12 PO 0919 Citalopram 20 MG DAILY 07/10 2199 AC 07/12 Hydrobromide PO 0919 Cyanocobalamin 1,000 MCG DAILY 07/10 2199 AC 07/12 PO 0919 Docusate Sodium 100 MG BID 07/10 2199 AC 07/12 PO 0919 Furosemide 40 MG DAILY 07/10 2199 AC 07/12 PO 0919 Insulin Aspart 0 TIDAC 07/10 2114 AC 07/12 SC 1214 Insulin Detemir 12 UNITS BID 07/11 1000 AC 07/12 SC 0919 Lidocaine 1 PAT DAILY@1700 PRN 07/10 2114 AC EXT Melatonin 5 MG AT BEDTIME PRN 07/10 2114 AC PO Nitroglycerin 0.5 GM Q6 PRN 07/10 2300 AC TOP Omeprazole 40 MG BID 07/10 2199 AC 07/12 PO 0918 Oxycodone HCl 40 MG Q12 07/10 2330 AC 07/12 PO 0918 Oxycodone HCl 10 MG Q6P PRN 07/10 2114 AC 07/12 PO 1529 Polycarbophil 1,250 MG DAILY 07/11 1000 AC 07/12 PO 0918 Pregabalin 150 MG DAILY 07/11 1000 AC 07/12 PO 0918 Ramelteon 8 MG ONCE PRN 07/10 2114 AC PO Tiotropium [place] 1 PUF DAILY 07/10 2114 AC 07/12 INH 0917 Laboratory Tests 07/11/17 1310: PT 13.1 H, INR 1.25 H 07/11/17 0632: Anion Gap 12, Estimated GFR 19 L, BUN/Creatinine Ratio 10.0, Troponin I 0.11 *H , CBC w Diff NO MAN DIFF REQ, RBC 2.57 L, MCV 92.1, MCH 30.1, RDW 17.9 H, MPV 6.3 L, Gran % 74.3, Lymphocytes % 11.5 L, Monocytes % 8.9, Eosinophils % 4.1, Basophils % 1.2, Absolute Granulocytes 6.9 H, Absolute Lymphocytes 1.1 L, Absolute Monocytes 0.8 H, Absolute Eosinophils 0.4, Absolute Basophils 0.1, PUBS MCHC 32.7 L 07/11/17 0500: Troponin I Cancelled 07/10/17 2337: Troponin I 0.12 *H 07/10/17 1701: Urine Color YEL, Urine Clarity HAZY H, Urine pH 6.0, Ur Specific [place] 1.020, Urine Protein 100 H, Urine Ketones NEG, Urine Nitrite NEG, Urine Bilirubin NEG, Urine Urobilinogen 0.2, Ur Leukocyte Esterase MOD H, Ur Microscopic SEDIMENT EXAMINED, Urine RBC RARE, Urine WBC 25-50 H, Ur Epithelial Cells FEW, Urine Bacteria MOD H, Hyaline Casts RARE H, Urine Mucus RARE, Micro UA Comment [place] H, Urine Hemoglobin TRACE-INTACT, Urine Glucose NEG Vital Signs Date Time Temp Pulse Resp B/P B/P Pulse O2 O2 Flow FiO2 Mean Ox Delivery Rate 07/12 0800 94 Nasal 2.0L Cannula 07/12 0643 98.8 61 20 132/52 90 Nasal 2.0L Cannula 07/11 2337 Nasal 2.0L Cannula 07/11 2300 98.6 57 20 112/56 96 Nasal 2.0L Cannula 07/11 2146 Nasal 2.0L Cannula 07/11 1801 98.9 62 22 130/58 97
[2017-07-12 21:33] VITALS: BP 130/58
--- NOTE | 2017-07-13 07:16 | PN- Housestaff ---
Subjective Follow-up For: Generalized weakness, anemia, Complaints: no complaints Tele-Events Since Last Visit: Sinus rhythm heart rate 65 Subjective: Patient was seen and examined by me at bedside today. No overnight events. She says,she has frequent anxiety episodes since last admission. She denies chest pain, chest pressure, nausea, vomiting, abdominal pain, pain in lower extremity. Review of Systems Constitutional: Reports: no symptoms. Cardiovascular: Reports: no symptoms. Respiratory: Reports: no symptoms. Gastrointestinal: Reports: no symptoms. Genitourinary: Reports: no symptoms. Musculoskeletal: Reports: no symptoms. Objective Last 24 Hrs of Vital Signs/I&O Vital Signs Date Time Temp Pulse Resp B/P B/P Pulse O2 O2 Flow FiO2 Mean Ox Delivery Rate 07/13 0000 Nasal 2.0L Cannula 07/12 2132 97.8 55 18 130/58 97 07/12 1600 Nasal 2.0L Cannula Intake & Output 07/13 1600 07/13 0800 07/13 0000 Intake Total 300 400 Output Total 500 300 Balance -200 100 Intake, Oral 300 400 Output, Urine 500 300 Physical Exam General Appearance: Alert, Oriented X3, Cooperative, No Acute Distress HEENT: Atraumatic Neck: Supple, No JVD Cardiovascular: Regular Rate, Normal S1, Normal S2 Lungs: Clear to Auscultation, Normal Air Movement Abdomen: Normal Bowel Sounds, Soft, No Tenderness Neurological: Normal Speech Current Medications: Current Medications Sig/Suleman Start time Last Medication Dose Route Stop Time Status Admin Acetaminophen 650 MG .STK-MED ONE 07/12 1356 DC PO 07/12 1357 Acetaminophen 650 MG Q6P PRN 07/10 2114 AC 07/12 PO 1357 Albuterol Sulfate 3 ML Q4-PRN PRN 07/11 2144 AC INH Albuterol Sulfate 3 ML Q6 PRN 07/10 2214 AC INH Albuterol Sulfate 3 ML BID PRN 07/10 2114 AC INH Alprazolam 0.25 MG BID PRN 07/10 2114 AC 07/13 PO 07/17 2113 0910 Buspirone HCl 5 MG BID 07/10 2199 AC 07/13 PO 0911 Citalopram 20 MG DAILY 07/10 2199 AC 07/13 Hydrobromide PO 09 Cyanocobalamin 1,000 MCG DAILY 07/10 2199 AC 07/13 PO 0912 Docusate Sodium 100 MG BID 07/10 2199 AC 07/13 PO 0912 Furosemide 40 MG DAILY 07/10 2199 AC 07/13 PO 0912 Insulin Aspart 0 TIDAC 07/10 2114 AC 07/13 SC 0910 Insulin Detemir 12 UNITS BID 07/11 1000 AC 07/13 SC 0910 Lidocaine 1 PAT DAILY@1700 PRN 07/10 2114 AC EXT Melatonin 5 MG .STK-MED ONE 07/12 2150 DC PO 07/12 215 Melatonin 5 MG AT BEDTIME PRN 07/10 2114 AC 07/12 PO 2154 Nitroglycerin 0.5 GM Q6 PRN 07/10 2300 AC TOP Omeprazole 40 MG BID 07/10 2199 AC 07/13 PO 0912 Oxycodone HCl 40 MG Q12 07/10 2330 AC 07/13 PO 0910 Oxycodone HCl 10 MG Q6P PRN 07/10 2114 AC 07/12 PO 1529 Polycarbophil 1,250 MG DAILY 07/11 1000 AC 07/13 PO 0911 Pregabalin 150 MG DAILY 07/11 1000 AC 07/13 PO 0910 Ramelteon 8 MG ONCE PRN 07/10 2114 AC PO Tiotropium [place] 1 PUF DAILY 07/10 2114 AC 07/13 INH 0911 Last 24 Hrs of Lab/Drew Results Last 24 Hrs of Labs/Mics: Laboratory Tests 07/13/17 0750: Anion Gap 14, Estimated GFR 16 L, BUN/Creatinine Ratio 10.3, CBC w Diff NO MAN DIFF REQ, RBC 2.59 L, MCV 91.7, MCH 30.1, RDW 17.7 H, MPV 6.0 L, Gran % 77.8 H, Lymphocytes % 10.8 L, Monocytes % 6.5, Eosinophils % 4.4, Basophils % 0.5, Absolute Granulocytes 7.7 H, Absolute Lymphocytes 1.1 L, Absolute Monocytes 0.6, Absolute Eosinophils 0.4, Absolute Basophils 0, PUBS MCHC 32.9 L Assessment/Plan Assessment: 61 YO F current smoker with PMH of COPD on 2L home O2, type 2 diabetes with neuropathy, left leg below-knee amputation status post prosthesis, left leg DVT status post IVC filter placement, CKD, peripheral vascular disease, amputation of first and third toe of right foot, uterine cancer status post total abdominal hysterectomy with bilateral salpingo-oophorectomy, right pleural empyema status post decortication with chest tube placement, cholecystectomy, anxiety and depression brought to ED by herself with chief complaint of generalized weakness , mechanical fall and anxiety attacks since she had been discharged from hospital on 07 of July Problem list: 1. Physical deconditioning 2. Type II MT, demand ischemia 3. Anxiety 4. Right-sided pleural effusion-that is post chest tube drainage. #Physical deconditioning/anxiety Patient feels extremely weak since last admission. Patient was evaluated by physical therapy yesterday,who suggested short-term rehabilitation. Patient also complains of frequent anxiety attacks since last admission. Patient is on buspirone. #Type II MT, demand ischemia: Patient did not have chest pain. Troponin was mildly elevated but has down trended. Likely demand ischemia. Appreciate cardiology follow-up. #Right-sided pleural effusion: Patient has large to moderate pleural effusion. Last admission patient had a pleural effusion tapping. Advised to follow-up with the [facility] as outpatient. Continue albuterol, Tiotropium nebulization. #Chronic medical problems: -Continue home pregabalin, polycarbophil, oxycodone, furosemide, docusate, omeprazole, cyanocobalamin, citalopram, buspirone, lidocaine, alprazolam -Insulin sliding scale DVT prophylaxis with Alps Consistent carbohydrate 3 diet Full code Plan-discharged to short-term rehabilitation today. Problem List: 1. CKD (chronic kidney disease) 2. Pleural effusion 3. Generalized weakness Pain Ratin Pain Location: rt lower extremity Pain Goal: Remain pain free Pain Plan: oxycontin,tylenol Tomorrow's Labs & Rationales: none
--- NOTE | 2017-07-13 08:17 | Discharge Summary ---
Visit Information Visit Dates Admission Date: 07/10/17 Discharge Date: 07/13/17 Hospital Course Course Attending Physician: Wallace Hays MD Primary Care Physician: Saúl RODAS,Wallace [facility] Course: Ms Vo is a 61-year-old woman, current smoker with a history of COPD on 2 L oxygen, diabetes type 2 with diabetic neuropathy, peripheral vascular disease, left leg DVT status post IVC filter, chronic kidney disease, neuropathy and peripheral vascular disease, status post left BKA , right foot charcot and amputations of the right first and third toes, recently admitted to [facility] for empyema s/p chest tube insertion, presented with generalized weakness, decreased appetite, anxiety, unsteady gait. She was optimized with her pain medication, and a repeat evaluation with physical therapist suggested that she is better suited to be discharged for short-term rehabilitation as opposed to home with health services as earlier. She still has to follow up with her primary care physician, and her coordinator of library services after discharge. She needs to repeat CMP on 07/16/17 with copies sent to Dr Wallace Hays (her PCP). She needs to follow up with ED or PCP to get her stiches removed in one week's time. Allergies: Coded Allergies: NO KNOWN ALLERGIES (NONE 06/26/17) Pertinent Lab Results: Laboratory Tests 07/13/17 0750: Anion Gap 14, Estimated GFR 16 L, BUN/Creatinine Ratio 10.3, CBC w Diff NO MAN DIFF REQ, RBC 2.59 L, MCV 91.7, MCH 30.1, RDW 17.7 H, MPV 6.0 L, Gran % 77.8 H, Lymphocytes % 10.8 L, Monocytes % 6.5, Eosinophils % 4.4, Basophils % 0.5, Absolute Granulocytes 7.7 H, Absolute Lymphocytes 1.1 L, Absolute Monocytes 0.6, Absolute Eosinophils 0.4, Absolute Basophils 0, PUBS MCHC 32.9 L Disposition Summary Disposition Principal Diagnosis: type II [place], secondary to moderate pleural effusion; Generalized weakness, 2/2 mechanical fall and chronic anemia. Additional Diagnosis: COPD on 2L home O2, type 2 diabetes with neuropathy, left leg below-knee amputation status post prosthesis, left leg DVT status post IVC filter placement , CKD, peripheral vascular disease, amputation of first and third toe of right foot, uterine cancer status post total abdominal hysterectomy with bilateral salpingo-oophorectomy, right pleural empyema status post decortication with chest tube placement, cholecystectomy, anxiety and depression Discharge Disposition: SNF Discharge Instructions General Discharge Information Code Status: Full Code Patient's Diet: Regular diet Patient's Activity: As tolerated, has left below-knee amputation, may need assistance due to unsteadiness. Follow-Up Instructions/Appts: Please follow-up with your primary care physician, and coordinator of library services/lung doctor after discharge. Please return to emergency if symptoms worsen. Medications at Discharge Discharge Medications: Continue taking these medications: Citalopram Hydrobromide (Citalopram HBr) 20 MG TABLET 1 Tablet ORAL DAILY Qty = 90 Comments: Last Taken: 07/13/17 Time: 9AM Tiotropium [place] (Spiriva) 18 MCG CAP.W.DEV 1 Capsule Inhale through mouth DAILY Qty = 90 Comments: Last Taken: 07/13/17 Time: 9AM Furosemide (Furosemide) 40 MG TABLET 40 Milligram ORAL DAILY Qty = 135 Comments: Last Taken: 07/13/17 Time: 9AM Oxycodone HCl (Oxycontin) 80 MG TAB.ER.12H 1 Tablet ORAL THREE TIMES DAILY as needed for PAIN Qty = 90 Comments: Last Taken: 07/13/17 Time: 9AM Alprazolam (Alprazolam) 0.25 MG TABLET 1 Tablet ORAL 2 x Daily as needed as needed for ANXIETY Qty = 60 Comments: Last Taken: 07/13/17 Time: 9AM Insulin Aspart, Recombinant (Novolog Flexpen) 100 UNIT/ML INSULN.PEN Units Inject into fatty tissue BEFORE MEALS AND AT BEDTIME Qty = 90 Comments: Last Taken: 07/13/17 Time: 12PM PT GIVEN NOVOLOG SLIDING SCALE Pregabalin (Lyrica) 150 MG CAPSULE 1 Capsule ORAL DAILY Qty = 90 Comments: Last Taken: 07/13/17 Time: 9AM Docusate Sodium (Colace) 100 MG CAPSULE 1 Capsule ORAL TWICE DAILY Comments: Last Taken: 07/13/17 Time: 9AM Ergocalciferol (Vitamin D2) (Vitamin D2) 50,000 UNIT CAPSULE 1 Capsule ORAL EVERY 2 WEEKS Qty = 6 Comments: NOT GIVEN IN HOSPITAL Cyanocobalamin (Vitamin B-12) (B-12) 1,000 MCG TABLET 1 Tablet ORAL DAILY Qty = 30 Comments: Last Taken: 07/13/17 Time: 9AM Linagliptin (Tradjenta) 5 MG TABLET 1 Tablet ORAL DAILY Qty = 90 Comments: NOT GIVE IN THE HOSPITAL Albuterol Sulfate (Albuterol Sulfate) 2.5 MG/3 ML (0.083 %) VIAL.NEB 3 Milliliters Inhale through mouth TWICE DAILY as needed for sob Qty = 30 Comments: NOT GIVEN IN HOSPITAL Buspirone HCl (Buspirone HCl) 5 MG TABLET 5 Milligram ORAL TWICE DAILY Qty = 30 Comments: Last Taken: 07/13/17 Time: 9AM Insulin Detemir (Levemir) 100 UNIT/ML VIAL 12 Units Inject into fatty tissue TWICE DAILY Qty = 1 Comments: Last Taken: 07/13/17 Time: 9AM Lidocaine (Lidoderm) 5 % ADH..PATCH 1 Patch ON SKIN DAILY as needed for pain Qty = 30 Comments: NOT GIVEN IN HOSPITAL Melatonin (Melatonin) 5 MG TABLET 5 Milligram ORAL AT BEDTIME as needed for sleep Qty = 30 Comments: Last Taken: 07/13/17 Time: 10PM Nitroglycerin (Nitro-Bid) 2 % OINT...G. 0.5 Gram On the skin EVERY SIX HOURS NEEDED as needed for CHEST PAIN Qty = 1 Comments: NOT GIVEN IN THE HOSPITAL Omeprazole (Omeprazole) 40 MG CAPSULE.DR 1 Capsule ORAL DAILY Qty = 30 Comments: Last Taken: 07/13/17 Time: 9AM Polycarbophil (Fiber) 625 MG TABLET 1,250 Milligram ORAL DAILY Qty = 30 Comments: Last Taken: 07/13/17 Time: 9AM Ramelteon (Rozerem) 8 MG TABLET 8 Milligram ORAL GIVE ONCE as needed for SLEEP Qty = 30 Comments: NOT GIVEN IN HOSPITAL Copies To: Dhruv RODAS,Carlos Hays MD,Wallace
[2017-07-13 08:21] LABS: ABSOLUTE BASOPHIL COUNT 0 /CUMM (0.0-0.2); ABSOLUTE EOSINOPHIL COUNT 0.4 /CUMM (0.0-0.7); ABSOLUTE GRANULOCYTE CT 7.7 /CUMM (1.4-6.5); ABSOLUTE LYMPH COUNT 1.1 /CUMM (1.2-3.4); ABSOLUTE MONOCYTE COUNT 0.6 /CUMM (0.10-0.60); BASOPHIL % 0.5 % (0.0-2.0); EOSINOPHIL % 4.4 % (0-5); GRANULOCYTE % 77.8 % (42.2-75.2); HEMATOCRIT 23.7 % (37-47); MEAN CORPUSCULAR HGB 30.1 PG (27.0-31.0); MEAN CORPUSCULAR HGB CONC 32.9 G/DL (33.0-37.0); MEAN CORPUSCULAR VOLUME 91.7 FL (81.0-99.0); PLATELET COUNT 533 /CUMM (130-400); RBC DISTRIBUTION WIDTH 17.7 % (11.5-14.5); RED BLOOD CELL CT 2.59 /CUMM (4.20-5.40); WHITE BLOOD CELL COUNT 9.9 /CUMM (4.8-10.8)
--- NOTE | 2017-07-13 08:24 | Patient Discharge Instructions ---
Discharge Instructions General Discharge Information You were seen/treated for: type II [place], secondary to moderate pleural effusion; Generalized weakness, 2/2 mechanical fall and chronic anemia. Special Instructions: Please follow-up with your primary care physician, and water filterer/lung doctor after discharge. Please get a repeat CMP test on 07/16/2017 with results sent to Dr. Wallace Hays. Please visit your PCP office or ED to get the stitches removed. Please return to emergency if symptoms worsen. Diet Continue normal diet: No Recommended Diet: Diabetic Activity Full Activity/No Limits: No Activity Self Limited: Yes (HAS LEFT BKA WITH PROSTHESIS) Acute Coronary Syndrome Inclusion Criteria At DC or during hospital stay patient has or had the following: ACS DIAGNOSIS No Discharge Core Measures Meds if any: Prescribed or Continued at Discharge Meds if any: NOT Prescribed or Continued at Discharge Congestive Heart Failure Inclusion Criteria At DC or during hospital stay patient has or had the following: CHF DIAGNOSIS No Discharge Core Measures Meds if any: Prescribed or Continued at Discharge Meds if any: NOT Prescribed or Continued at Discharge Cerebrovascular accident Inclusion Criteria At DC or during hospital stay patient has or had the following: CVA/TIA Diagnosis No Discharge Core Measures Meds if any: Prescribed or Continued at Discharge Meds if any: NOT Prescribed or Continued at Discharge Venous thromboembolism Inclusion Criteria VTE Diagnosis No VTE Type NONE VTE Confirmed by (Test) NONE Discharge Core Measures - Per Current guidelines, there needs to be overlap - treatment for the first 5 days of Warfarin therapy. - If discharged on Warfarin prior to 5 days of - overlap therapy, the patient will need to be - assessed for post discharge needs including - *Post discharge parental anticoagulation - *Warfarin and/or parental anticoagulation education - *Follow up date to check INR post discharge At least 5 days overlap therapy as Inpatient No Meds if any: Prescribed or Continued at Discharge Note: Overlap Therapy is Warfarin and Anticoagulant Meds if any: NOT Prescribed or Continued at Discharge
--- NOTE | 2017-07-13 10:50 | PN- Att Addend ---
Attending Addendum Attending Brief Note No new issues vital signs are stable no fever but no new changes on physical patient going for short-term rehabilitation today, I will follow the patient over there, see the discharge summary W 10 and CMR. Intake & Output 07/13 04007/11 0400 Intake Total 300 400 900 240 920 240 Output Total 098 453 1578 300 850 Balance -200 100 -1050 -60 70 240 Intake, IV 20 Intake, Oral 300 400 900 240 900 240 Number 1 Bowel Movements Output, Urine 720 522 8722 300 850 Patient 253 lb Weight Laboratory Tests 07/13/17 0750: Anion Gap 14, Estimated GFR 16 L, BUN/Creatinine Ratio 10.3, CBC w Diff NO MAN DIFF REQ, RBC 2.59 L, MCV 91.7, MCH 30.1, RDW 17.7 H, MPV 6.0 L, Gran % 77.8 H, Lymphocytes % 10.8 L, Monocytes % 6.5, Eosinophils % 4.4, Basophils % 0.5, Absolute Granulocytes 7.7 H, Absolute Lymphocytes 1.1 L, Absolute Monocytes 0.6, Absolute Eosinophils 0.4, Absolute Basophils 0, PUBS MCHC 32.9 L 07/11/17 1310: PT 13.1 H, INR 1.25 H 07/11/17 0632: Anion Gap 12, Estimated GFR 19 L, BUN/Creatinine Ratio 10.0, Troponin I 0.11 *H , CBC w Diff NO MAN DIFF REQ, RBC 2.57 L, MCV 92.1, MCH 30.1, RDW 17.9 H, MPV 6.3 L, Gran % 74.3, Lymphocytes % 11.5 L, Monocytes % 8.9, Eosinophils % 4.1, Basophils % 1.2, Absolute Granulocytes 6.9 H, Absolute Lymphocytes 1.1 L, Absolute Monocytes 0.8 H, Absolute Eosinophils 0.4, Absolute Basophils 0.1, PUBS MCHC 32.7 L 07/11/17 0500: Troponin I Cancelled 07/10/17 2337: Troponin I 0.12 *H 07/10/17 1701: Urine Color YEL, Urine Clarity HAZY H, Urine pH 6.0, Ur Specific Ellis 1.020, Urine Protein 100 H, Urine Ketones NEG, Urine Nitrite NEG, Urine Bilirubin NEG, Urine Urobilinogen 0.2, Ur Leukocyte Esterase MOD H, Ur Microscopic SEDIMENT EXAMINED, Urine RBC RARE, Urine WBC 25-50 H, Ur Epithelial Cells FEW, Urine Bacteria MOD H, Hyaline Casts RARE H, Urine Mucus RARE, Micro UA Comment BUDDING YEAST H, Urine Hemoglobin TRACE-INTACT, Urine Glucose NEG 07/10/17 1430: Anion Gap 13, Estimated GFR 19 L, BUN/Creatinine Ratio 9.2, Glucose 72, Calcium 9.6, Total Bilirubin 0.3, AST 29, ALT 45, Alkaline Phosphatase 174 H, Troponin I 0.14 *H, Rtj-L-Giaomcmejyu Pept 8350 H, Total Protein 7.3, Albumin 3.2 L, Globulin 4.1, Albumin/Globulin Ratio 0.8 L, CBC w Diff NO MAN DIFF REQ, RBC 2.93 L, MCV 92.0, MCH 30.1, RDW 17.7 H, MPV 5.9 L, Gran % 82.6 H, Lymphocytes % 8.3 L, Monocytes % 5.6, Eosinophils % 2.9, Basophils % 0.6, Absolute Granulocytes 8.4 H, Absolute Lymphocytes 0.8 L, Absolute Monocytes 0.6, Absolute Eosinophils 0.3, Absolute Basophils 0.1, PUBS MCHC 32.7 L Microbiology 07/10 170 URINE ROUT: Urine Culture - RES 07/10 1509 NASOPHARYN: Influenza Virus A & B Rapid Smear - COMP Microbiology 07/10 1700 URINE ROUT: Urine Culture - RES 07/10 1509 NASOPHARYN: Influenza Virus A & B Rapid Smear - COMP Vital Signs Date Time Temp Pulse Resp B/P B/P Pulse O2 O2 Flow FiO2 Mean Ox Delivery Rate 07/13 0800 Nasal 2.0L Cannula 07/13 0000 Nasal 2.0L Cannula 07/12 2133 97.8 55 18 130/58 97 07/12 1600 Nasal 2.0L Cannula
[2017-07-13 10:57] VITALS: BP 130/58
[2017-07-13 11:05] VITALS: BP 120/58
== END 2017-07-13 15:00 ==
LOC: ERH 13:33 → ERHI 20:47 → 1NO 20:47 → EDBEDREQ 21:03 → ENRESERV 21:32 → ENTRNSPT 21:54 → EDTRNSPTSTS 22:00 → 2NB 22:09 → CMPTRNSPT 22:24 → 1NO 07-11 00:20 → ENPENDDIS 07-13 13:40 → 1NO 07-13 15:00
PROVIDERS: Emergency Medicine; Hospitalist; Internal Medicine; Radiology Vascular & Interventional Radiology
DX: J90 Pleural effusion, not elsewhere classified (principal); I21.A1 Myocardial infarction type 2; R53.1 Weakness; D64.89 Other specified anemias; J44.9 Chronic obstructive pulmonary disease, unspecified; Z99.81 Dependence on supplemental oxygen; E11.40 Type 2 diabetes mellitus with diabetic neuropathy, unspecified; Z79.4 Long term (current) use of insulin; I73.9 Peripheral vascular disease, unspecified; N18.9 Chronic kidney disease, unspecified; Z86.718 Personal history of other venous thrombosis and embolism; F17.200 Nicotine dependence, unspecified, uncomplicated; Z89.512 Acquired absence of left leg below knee; Z85.42 Personal history of malignant neoplasm of other parts of uterus
CPT/HCPCS: 1328; 1530; 1748; 36415; 71046; 81001; 82436; 87086; 87804; 87804-59; 93005; 93010; 96374; 96376; 97110-GO; 97116-GO; 97162-GP; 97530-GO; G0378